=== PATIENT | female | born 1950 | race Caucasian/White ===

== ENCOUNTER 2025-01-21 15:21 | Outpatient (BNV) | payer MEDICARE, OTHER, SELFPAY | END 2025-02-10 09:00 | PROVIDERS: Admitting Provider Psychiatry & Neurology Psychiatry; PCP Radiology Diagnostic Radiology; Visit Provider Internal Medicine | DX: I35.8 Other nonrheumatic aortic valve disorders (principal); Z86.79 Personal history of other diseases of the circulatory system | CPT/HCPCS: 93306 ==

== ENCOUNTER 2025-01-21 15:21 | Outpatient (BNV) | payer MEDICARE, OTHER, SELFPAY | END 2025-01-22 07:00 | PROVIDERS: Admitting Provider Psychiatry & Neurology Psychiatry; PCP Radiology Diagnostic Radiology; Visit Provider Radiology Diagnostic Radiology | DX: E04.1 Nontoxic single thyroid nodule (principal) | CPT/HCPCS: 76536 ==

== ENCOUNTER 2025-01-21 15:21 | Outpatient (BNV) | payer MEDICARE, OTHER, SELFPAY | END 2025-02-12 17:38 | PROVIDERS: Admitting Provider Psychiatry & Neurology Psychiatry; PCP Radiology Diagnostic Radiology; Visit Provider Radiology Diagnostic Radiology | DX: K76.89 Other specified diseases of liver (principal) | CPT/HCPCS: 74177 ==

== ENCOUNTER 2025-01-21 15:21 | Inpatient (IN) | payer MEDICARE, OTHER, SELFPAY ==
--- NOTE | ~2025-01-21 | US_ITS ---
EXAMINATION: US THYROID CLINICAL INFORMATION: Left thyroid nodule. COMPARISON: None available. TECHNIQUE: Linear transducer grayscale and color Doppler examination with attention to the region of the thyroid. FINDINGS: SIZE: Measurements of the thyroid lobes and nodules are given in sagittal, anteroposterior and transverse dimensions respectively. Right Thyroid Lobe: 3.3 x 1.1 x 1.2 cm, volume 2.3 mL. Parenchyma: The gland echotexture is normal. Thyroid vascularity is normal. Left Thyroid Lobe: 2.3 x 1.1 x 0.9 cm, volume 1.2 mL. Parenchyma: The gland echotexture is normal. Thyroid vascularity is normal. Isthmus: 0.2 cm in maximum AP dimension. Estimated total number of nodules greater than or equal to 1 cm: 0. [employer] nodules are described as follows: US/US thyroid IMPRESSION: ACR TI RADS 0. Normal thyroid. ACR TI-RADS RECOMMENDATION REFERENCE: Ultrasound-guided fine-needle aspiration, followup ultrasound, no further follow up. * TR1 (0 point) and TR2 (2 points): No FNA or follow up. * TR3 (3 points): FNA if more than or equal to 2.5 cm in maximum dimension, followup ultrasound in 1, 3 and 5 years if 1.5 to 2.4 cm in maximum dimension. * TR4 (4-6 points): FNA if more than or equal to 1.5 cm in maximum dimension, followup ultrasound in 1, 2, 3 and 5 years if 1 to 1.4 cm in maximum dimension. * TR5 (more than or equal to 7 points): FNA if more than or equal to 1 cm in maximum dimension, followup ultrasound every year for 5 years if 0.5 to 0.9 cm in maximum dimension. * TR3, TR4 or TR5 nodules that are below the size threshold for followup receive no follow up. Electronically signed by: Juan Rosenberg MD 01/22/2025 10:02 AM EDT
--- NOTE | ~2025-01-21 | CT_ITS ---
CLINICAL HISTORY: Fall head strike CT cervical spine without contrast Comparison: None Findings: The visualized portions of the bilateral lung apices appear clear. Postsurgical changes compatible with ACDF present at the C4 through C7 vertebral levels. The surgical hardware appears intact. There is minimal grade 1 anterolisthesis of C7 on T1. Mild degenerative endplate changes are present at the cervical spine. Multilevel bilateral degenerative facet arthropathy present at the cervical spine. No acute fractures or dislocations are identified of the cervical spine. Minimal compression deformity identified of the superior T3 vertebral body endplate. This may be chronic in etiology based on its appearance. Impression: 1. No acute fracture or dislocation injury identified at the cervical spine. 2. Minimal compression deformity present at the superior T3 vertebral body endplate. This may be chronic in etiology based on its appearance. Clinical correlation is advised. This document has been electronically signed by: Jonathan Sandhu MD on 01/29/2025 03:05:54
--- NOTE | ~2025-01-21 | CT_ITS ---
CLINICAL HISTORY: Fall head strike CT head without contrast Comparison: None Findings: No intracranial mass, midline shift, hydrocephalus, or acute hemorrhage. Visualized paranasal sinuses and mastoid air cells appear clear. No acute skull fracture. Impression: 1. No acute intracranial abnormality. No acute intracranial hemorrhage. This document has been electronically signed by: Jonathan Sandhu MD on 01/29/2025 03:02:18
--- NOTE | ~2025-01-21 | CT_ITS ---
CLINICAL HISTORY: past liver lesion last yr ? ca abd pain CT abdomen and pelvis with IV contrast. COMPARISON: None FINDINGS: Partially visualized lung bases are unremarkable. Indeterminate ill-defined lesion within segment 7 of the liver measuring approximately 3.1 x 2.0 x 1.8 cm (best seen on coronal series 7, image 45 and sagittal series 8, image 65). Question mild peripheral enhancement. Indeterminate hypoattenuating lesion with question peripheral enhancement present within segment 1 of the liver measuring 1.1 cm (series coronal/7, image 39 and series 4, image 114). Additional well-defined hypoattenuating lesion present within segment 7 measuring 0.8 cm, too small to further characterize. Hypoattenuating lesion present along the dome of segment 8 measuring 1.4 cm, indeterminate. Additional well-defined hypoattenuating lesion present within segment 4A measuring 1.1 cm, likely representing a hepatic cyst. Normal gallbladder. Normal spleen. Several small calcifications present within the pancreas likely representing sequela of prior pancreatitis. Pancreatic duct is not dilated. No peripancreatic inflammatory changes. Symmetric renal enhancement. Cortical irregularity along the lateral aspect of the left kidney likely representing sequela prior trauma or infection. Left renal cystic lesion measuring 2.0 cm. No hydronephrosis. Cecum is in the left upper quadrant. Appendix is not definitively identified. Mild colonic stool burden. No bowel obstruction. No mesenteric or retroperitoneal lymphadenopathy. Moderate aortoiliac atherosclerotic vascular calcifications. Urinary bladder is unremarkable given degree of distention. No adnexal mass. Mild spondylosis. No fracture identified. Sacral stimulator device lead enters the sacrum on the left. IMPRESSION: 1. Indeterminate hepatic lesions within segments 1 and 7 of the liver measuring up to 3.1 cm. Recommend comparison with prior imaging if available. If none available, recommend hepatic protocol CT or MR for further characterization. Additional smaller hepatic lesions can be evaluated at that time. This document has been electronically signed by: Harry Prado MD on 02/12/2025 20:28:32
[2025-01-21 15:40] VITALS: BP 145/65; PULSE 84; RESP 18; TEMP 36.4; O2SAT 90; BMI 19.4
--- OUTSIDE RECORDS SUMMARY | 2025-01-21 18:18 | XMS_ITS | Encounter Summary ---
Author Organization [facility] Address [address] [place] [address] Care Team Providers Care Distribution Accounting Clerk Name Role Phone Johnny Izquierdo MD Primary Care Provider [phone] Johnny Frazier MD Primary Care Provider [phone] Encounter Details Date Type Department Care Team ( Contact Info) Description 11/04/2013 [facility] [address] [facility] [address] [place] [phone] Cecilia Pham NP Social History Tobacco Use Types Packs/Day Years Used Date Smoking Tobacco: Every Day Cigarettes 0.7 30 Smokeless Tobacco: Current Alcohol Use Standard Drinks/Week Comments Yes 0 (1 standard drink = 0.6 oz pur e alcohol) occasional drink Comments No Sex and Gender Information Value Date Recorded Sex Assigned at Not on file Legal Sex Female 6:50 PM EDT Gender Identity Not on file Sexual Orientation Not on file documented as of this encounter Plan of Treatment Upcoming Encounters Date Type Department Care Team (Latest Contact Info) Description 02/07/2025 9:25 AM EDT Office Visit [facility] [address] [place] [phone] Siomara Li MD [address] [place] [address] Return in about 3 months (around 03/12/2025). 05/12/2025 12:45 PM EDT CPE - Comprehensive Physical Exam [facility] [address] [place] [address] Tiffanie Rebolledo ADJUSTMENT EXAMINER [address] [facility] [place] [address] Last CPE: Not Found 06/11/2025 11:05 AM EDT Office Visit [facility] [address] [place] [address] Siomara Li MD [address] [place] [address] Keep this appt and Dr Britt can discuss at the January visit keep or move out documented as of this encounter Visit Diagnoses Diagnosis Urinary urgency Urgency of urination Urinary frequency documented in this encounter Additional Health Concerns Infection Onset Date Last Indicated Resolved Time COVID-19 Rule-Out 09/12/2020 09/12/2020 12/07/2020 8:13 PM EST documented as of this encounter Care Teams Distribution Accounting Clerk Relationship Specialty Start Date End Date Johnny Izquierdo MD [address] [place] [address] PCP - General 01/14/06 04/21/22 Johnny Frazier MD [address] [place] [address] PCP - General Family Medicine 04/22/22 documented as of this encounter
--- OUTSIDE RECORDS SUMMARY | 2025-01-21 18:18 | XMS_ITS | Encounter Summary ---
Author Organization [facility] Address [address] [place] [address] Care Team Providers Care Slot Shift Supervisor Name Role Phone Johnny Izquierdo MD Primary Care Provider [phone] Johnny Frazier MD Primary Care Provider [phone] Encounter Details Date Type Department Care Team (Late st Contact Info) Description 11/04/2013 Orders Only [facility] [address] [place] [phone] Johnny Izquierdo MD [address] [place], [place] [phone] Social History Tobacco Use Types Packs/Day Years [...] on file documented as of this encounter Progress Notes * Katy Antoine - 11/12/2013 12:00 PM Abbi Note: The patients lab results are at an abnormal level and Microalbumin and Urine Culture: Canceled by In Results on MonNov 05, 2013 3:32 PM Reason: Error - Test Not Performed. Patient unable to void. by the protocol guidelines. Please review. No Letter was generated. Patient has no upcoming appointment until February documented in this encounter Plan of Treatment Upcoming Encounters Date Type Department Care Team (Latest Contact Info) Description 02/07/2025 9:25 AM EDT Office Visit [facility] [address] [place] [address] Siomara Li MD [address] [place] [address] Return in about 3 months (around 03/12/2025). 05/12/2025 12:45 PM EDT CPE - Comprehensive Physical Exam [facility] [address] [place] [phone] Tiffanie Rebolledo, GRAB JACK WORKER [address] [place] [address] Last CPE: Not Found 06/11/2025 11:05 AM EDT Office Visit [facility] [address] [place] [phone] Siomara Li MD [address] [place] [address] Keep this appt and Dr Britt can discuss at the January visit keep or move out documented as of this encounter Procedures * Due to [place] state law, this organization might not be sharing negative HIV tests. Procedure Name Priority Date/Time Associated Diagnosis Comments ASPARTATE AMINOTRANSFERASE (AST), SERUM Routine 11/04/2013 9:41 AM EST Diabetes mellitus HEMOGLOBIN A1C Routine 11/04/2013 9:41 AM EST Diabetes mellitus LIPID PANEL WITH REFLEX TO DIRECT LDL Routine 11/04/2013 9:41 AM EST Diabetes mellitus BASIC METABOLIC PANEL WITH (GFR) Routine 11/04/2013 9:41 AM EST Diabetes mellitus documented in this encounter Results * Due to [place] state law, this organization might not be sharing negative HIV tests. * BASIC METABOLIC PANEL WITH (GFR) (11/04/2013 9:41 AM EST) Glucose 65 65 - 99 mg/dL [facility] Comment: {GLUCOSE {[id number]) ? Fasting reference interval Urea Nitrogen Blood (BUN) 9 7 - 25 mg/dL [facility] Comment:{UREA NITROGEN (BUN) {[id number]) Creatinine 0.75 0.50 - 0.99 mg/dL [facility] Comment: {CREATININE {[id number]) For patients >49 years of age, the reference limit for Creatinine is approximately 13% higher for people identified as -Cymraes. GFR 85 > OR = 60 mL/min/1 .73m2 [facility] Comment:{eGFR NON-AFR. AMERI CAN {[id number]) GFR () 99 > OR = 60 mL/min/1 .73m2 [facility] Comment:{eGFR AMERIC AN {[id number]) BUN/Creatinine Ratio NOT APPLICABLE 6 - 22 (calc) [facility] Comment:{BUN/CREATININE RATI O {[id number]) Sodium 140 135 - 146 mmol/L [facility] Comment:{SODIUM {[id number]) Potassium 4.5 3.5 - 5.3 mmol/L [facility] Comment:{POTASSIUM {[id number]) Chloride 105 98 - 110 mmol/L [facility] Comment:{CHLORIDE {[id number]) Carbon dioxide 28 19 - 30 mmol/L [facility] Comment:{CARBON DIOXIDE {[id number]) Calcium 8.8 8.6 - 10.4 mg/dL [facility] Comment:{CALCIUM {[id number]) 11/04/2013 9:41 AM EST 11/04/2013 2:10 PM EST Narrative [facility] - 11/04/2013 5:28 PM EST Please note that this estimated GFR does not include an adjustment for the patient's height or weight, and can therefore, be viewed as reliable only for patients with heights between 60 and 72 . More precise quantification using a 24-hour urine sample or height-based algorithm is recommended for patients outside of this range of height and for those individuals with more precise needs for GFR calculation. Resulting Agency Comment [id number] Johnny Izquierdo MD LABORATORY Final Result Performing Organization Address [facility]/ZIP Co de Phone Number [facility] [address] [place] [address] * ASPARTATE AMINOTRANSFERASE (AST), SERUM (11/04/2013 9:41 AM EST) AST (SGOT) 26 10 - 35 U/L [facility] Comment:{AST {[id number]) 11/04/2013 9:41 AM EST 11/04/2013 2:10 PM EST Narrative Resulting Agency Comment [id number] Johnny Izquierdo MD LAB SAME DAY RESULT Final Res ult Performing Organization Address [facility] Co de Phone Number [facility] [address] [place] [address] * (ABNORMAL) LIPID PANEL WITH REFLEX TO DIRECT LDL (11/04/2013 9:41 AM EST) Cholesterol 130 125 - 200 mg/dL [facility] Comment:{CHOLESTEROL, TOTAL {[id number]) HDL Cholesterol 23(L) > OR = 46 mg/dL [facility] Comment:{HDL CHOLESTEROL {[id number]) Triglyceride 145 <150 mg/dL [facility] Comment:{TRIGLYCERIDES {[id number]) LDL Cholesterol 78 <130 mg/dL (calc) [facility] Comment: {LDL-CHOLESTEROL {[id number]) Desirable range <100 mg/dL for patients with CHD or diabetes and <70 mg/dL for diabetic patients with known heart disease. CHOL/HDL Ratio 5.7(H) < OR = 5.0 (calc) [facility] Comment:{CHOL/HDLC RATIO {[id number]) Cholesterol Non-HDL 107 mg/dL (calc) [facility] Comment: {NON HDL CHOLESTEROL {[id number]) Target for non-HDL cholesterol is 30 mg/dL higher than LDL cholesterol target. 11/04/2013 9:41 AM EST 11/04/2013 2:10 PM EST Narrative Resulting Agency Comment [id number] Johnny Izquierdo MD LABORATORY Final Result Performing Organization Address [facility] Co de Phone Number [facility] [address] [place] [address] * (ABNORMAL) HEMOGLOBIN A1C (11/04/2013 9:41 AM EST) Hemoglobin A1C 5.8(H) <5.7 % of total Hgb [facility] Comment: {HEMOGLOBIN A1c {[id number]) According to ADA guidelines, hemoglobin A1c <7.0% represents optimal control in non- diabetic patients. Different metrics may apply to specific patient populations. Standards of Medical Care in Diabetes-2013. Diabetes Care. 2013;36:s11-s66 For the purpose of screening for the presence of diabetes <5.7% ? Consistent with the absence of diabetes 5.7-6.4% ?Consistent with increased risk for diabetes ?(prediabetes) >or=6.5% ?Consistent with diabetes This assay result is consistent with an increased risk of diabetes. Currently, no consensus exists for use of hemoglobin A1c for diagnosis of diabetes for children. Estimated Average Glucose 129 mg/dL (calc) [facility] Comment:{MEAN PLASMA GLUCOSE {[id number]) 11/04/2013 9:41 AM EST 11/04/2013 2:10 PM EST Narrative Resulting Agency Comment [id number] Johnny Izqiuerdo MD LABORATORY Final Result Performing Organization Address [facility] Co de Phone Number [facility] [address] [place] [address] documented in this encounter Visit Diagnoses Diagnosis Diabetes mellitus (HCC) Type II or unspecified type diabetes mellitus without mention of complication, not stated as uncontrolled Urinary tract infection Urinary tract infection, site not specified documented in this encounter Additional Health Concerns Infection Onset Date Last Indicated Resolved Time COVID-19 Rule-Out 09/12/2020 09/12/2020 12/07/2020 8:13 PM EST documented as of this encounter Care Teams Slot Shift Supervisor Relationship Specialty Start Date End Date Johnny Izquierdo MD [address] [place] [address] PCP - General 01/14/06 04/21/22 Johnny Frazier MD [address] [place] [address] PCP - General Family Medicine 04/22/22 documented as of this encounter
--- OUTSIDE RECORDS SUMMARY | 2025-01-21 18:18 | XMS_ITS | Encounter Summary ---
Author Organization [facility] Address [address] [place] [address] Care Team Providers Care Cyber Analyst Name Role Phone Johnny Izquierdo MD Primary Care Provider [phone] Johnny Frazier MD Primary Care Provider [phone] Encounter Details Date Type Department Care Team (Late st Contact Info) Description 07/10/2014 Orders Only [facility] [address] [place] [phone] Johnny Izquierdo MD [address] [place], [place] [phone] Social History Tobacco Use Types Packs/Day Years [...] encounter Progress Notes * Katy Antoine - 07/14/2014 9:30 AM EDTQuick Note: Please review. No Letter was generated. Patient has an upcoming appointment today documented in this encounter Plan of Treatment Upcoming Encounters Date Type Department Care Team (Latest Contact Info) Description 02/07/2025 9:25 AM EDT Office Visit [facility] [address] [place] [address] Siomara Li MD [address] [place] [address] Return in about 3 months (around 03/12/2025). 05/12/2025 12:45 PM EDT CPE - Comprehensive Physical Exam [facility] [address] [place] [address] Tiffanie Rebolledo, SPRAY UNIT FEEDER [address] [place] [address] Last CPE: Not Found 06/11/2025 11:05 AM EDT Office Visit [facility] [address] [place] [address] Siomara Li MD [address] [place] [address] Keep this appt and Dr Britt can discuss at the January visit keep or move out documented as of this encounter Goals Goal Patient Goal Type Associated Problems Recent Progress Patient-Stated? Author Quit smoking / using tobacco Lifestyle No Ricarda Weeks HEMOGLOBIN A1C % < 7 Result Component 6.3(12/03/2024 10:29 AM EST) No Ricarda Weeks documented as of this encounter Procedures * Due to [place] [employer] law, this organization might not be sharing negative HIV tests. Procedure Name Priority Date/Time Associated Diagnosis Comments EKG-TO BE READ & BILLED BY ADULT OR PEDIATRIC CARDIOLOGY Routine 07/10/2014 11:54 AM EDT Cellulitis documented in this encounter Results * Due to [place] [employer] law, this organization might not be sharing negative HIV tests. * EKG-TO BE READ AND BILLED BY CARDIOLOGY (07/10/2014 11:54 AM EDT) VENTRICULAR RATE 59 BPM MUS E EKG SYSTEM ATRIAL RATE 59 BPM MUSE EKG SYSTEM P-R INTERVAL 200 ms MUSE EK G SYSTEM QRS DURATION 78 ms MUSE EK G SYSTEM QT 434 ms MUSE EKG SYSTEM QTC 429 ms MUSE EKG SYSTEM P AXIS 25 degrees MUSE EKG SYSTEM R AXIS 31 degrees MUSE EKG SYSTEM T AXIS 30 degrees MUSE EKG SYSTEM EKG INTERPRETATION Sinus bradycardia Otherwise normal ECG When compared with ECG of 13-JAN-2011 13:22, No significant change was found MUSE EKG SYSTEM 07/10/2014 11:5 4 AM EDT us Johnny Izquierdo MD CARDIOVASCULAR-WITH INBSKT RT G Final Result MUSE EKG SYSTEM documented in this encounter Visit Diagnoses Diagnosis Cellulitis Cellulitis and abscess of unspecified site documented in this encounter Additional Health Concerns Infection Onset Date Last Indicated Resolved Time COVID-19 Rule-Out 09/12/2020 09/12/2020 12/07/2020 8:13 PM EST documented as of this encounter Care Teams Cyber Analyst Relationship Specialty Start Date End Date Johnny Izquierdo MD [address] [place] [address] PCP - General 01/14/06 04/21/22 Johnny Frazier MD [address] [place] [address] PCP - General Family Medicine 04/22/22 documented as of this encounter
--- OUTSIDE RECORDS SUMMARY | 2025-01-21 18:18 | XMS_ITS | Encounter Summary ---
Author Organization [facility] Address [address] [place] [address] Care Team Providers Care International Organizer Name Role Phone Johnny Izquierdo MD Primary Care Provider [phone] Johnny Frazier MD Primary Care Provider [phone] Encounter Details Date Type Department Care Team (Late st Contact Info) Description 11/06/2013 Orders Only [facility] [address] [place] [phone] Johnny Izquierdo MD [address] [place], [place] [address] Social History Tobacco Use Types Packs/Day Years [...] encounter Progress Notes * Katy Antoine - 11/07/2013 10:10 AM Abbi Note: The patients lab results are at a normal/stable level by the protocol guidelines. The result letterwas completed and sent to patient. Cecilia Reynaga NP - 11/07/2013 8:49 AM ESTQuick Note: Noted. LP documented in this encounter Plan of Treatment Upcoming Encounters Date Type Department Care Team (Latest Contact Info) Description 02/07/2025 9:25 AM EDT Office Visit [facility] [address] [place] [phone] Siomara Li MD [address] [place] [address] Return in about 3 months (around 03/12/2025). 05/12/2025 12:45 PM EDT CPE - Comprehensive Physical Exam [facility] [address] [place] [phone] Tiffanie Rebolledo NP [address] [place] [address] Last CPE: Not Found 06/11/2025 11:05 AM EDT Office Visit [facility] [address] [place] [phone] Siomara Li MD [address] [place] [address] Keep this appt and Dr Britt can discuss at the Kelsi visit keep or move out documented as of this encounter Procedures * Due to [place] [employer] law, this organization might not be sharing negative HIV tests. Procedure Name Priority Date/Time Associated Diagnosis Comments URINALYSIS, MICROSCOPIC Routine 11/06/2013 12:11 PM EST Urinary frequency Urinary urgency Urinary tract infection documented in this encounter Results * Due to [place] [employer] law, this organization might not be sharing negative HIV tests. * URINALYSIS, MICROSCOPIC (11/06/2013 12:11 PM EST) WBC (Urine) 0-5 < OR = 5 /HPF [facility] Comment:{WBC {[id number]) RBC (Urine Sed) 0-3 < OR = 3 /HPF [facility] Comment:{RBC {[id number]) Epithelial cells.squamous (Urine sed) 0-5 < OR = 5 /HPF [facility] Comment:{SQUAMOUS EPITHELIAL CELLS {[id number]) Bacteria (Urine) NONE SEEN NONE SEEN /HPF [facility] Comment:{BACTERIA {[id number]) Hyaline casts (Urine sed) NONE SEEN NONE SEEN /LPF [facility] Comment:{HYALINE CAST {[id number]) 11/06/2013 12:1 1 PM EST 11/06/2013 5:35 PM EST Narrative Resulting Agency Comment [id number] Johnny Izquierdo MD LAB SAME DAY RESULT Final Res ult [facility] [address] [place] [address] documented in this encounter Visit Diagnoses Diagnosis Urinary frequency Urinary urgency Urgency of urination Urinary tract infection Urinary tract infection, site not specified documented in this encounter Additional Health Concerns Infection Onset Date Last Indicated Resolved Time COVID-19 Rule-Out 09/12/2020 09/12/2020 12/07/2020 8:13 PM EST documented as of this encounter Care Teams International Organizer Relationship Specialty Start Date End Date Johnny Izquierdo MD [address] [place] [address] PCP - General 01/14/06 04/21/22 Johnny Frazier MD [address] [place] [address] PCP - General Family Medicine 04/22/22 documented as of this encounter
--- OUTSIDE RECORDS SUMMARY | 2025-01-21 18:18 | XMS_ITS | Encounter Summary ---
Author Organization [facility] Address [address] [place] [address] Care Team Providers Care Layup Worker Name Role Phone Johnny Izquierdo MD Primary Care Provider [phone] Johnny Frazier MD Primary Care Provider [phone] Encounter Details Date Type Department Care Team (Late st Contact Info) Description 09/19/2016 Orders Only [facility] [address] [place] [address] Linda Dickson, SOPHIE Social History Tobacco Use Types Packs/Day Years Used Date Smoking Tobacco: Every Day Cigarettes 1 56.5 Started: 07/19/1968 Smokeless Tobacco: Current Comments:1/2 ppd Alcohol Use Standard Drinks/Week Comments Yes 0 (1 standard drink = 0.6 oz pur e alcohol) occasional drink Comments No Sex and Gender Information Value Date Recorded Sex Assigned at Not on file Legal Sex Female 6:50 PM EDT Gender Identity Not on file Sexual Orientation Not on file documented as of this encounter Progress Notes * Katy Antoine - 09/21/2016 8:49 AM ESTQuick Note: Letter sent * Linda Dickson - 09/20/2016 5:15 PM ESTQuick Note: Please send normal letter. Ok for surgery documented in this encounter Plan of Treatment Upcoming Encounters Date Type Department Care Team (Latest Contact Info) Description 02/07/2025 9:25 AM EDT Office Visit [facility] [address] [place] [address] Siomara Li MD [address] [place] [address] Return in about 3 months (around 03/12/2025). 05/12/2025 12:45 PM EDT CPE - Comprehensive Physical Exam [facility] [address] [place] [address] Tiffanie Rebolledo, MAXILLOFACIAL PROSTHODONTIST [address] [place] [address] Last CPE: Not Found 06/11/2025 11:05 AM EDT Office Visit [facility] [address] [place] [address] Siomara Li MD [address] [place] [address] Keep this appt and Dr Britt can discuss at the Kelsi visit keep or move out documented as of this encounter Goals Goal Patient Goal Type Associated Problems Recent Progress Patient-Stated? Author Blood Pressure < 140/80 Blood Pressure 143/65(2024 2:06 PM EST) No Arabella Solares PA Quit smoking / using tobacco Lifestyle No Ricarda Weeks HEMOGLOBIN A1C % < 7 Result Component 6.3( 10:29 AM EST) No Ricarda Weeks documented as of this encounter Procedures * Due to [place] state law, this organization might not be sharing negative HIV tests. Procedure Name Priority Date/Time Associated Diagnosis Comments CBC INCLUDES DIFFERENTIAL AND PLATELET COUNT Routine 09/19/2016 8:45 AM EST Preoperative examination THYROID STIMULATING HORMONE (TSH) WITH FREE T4 REFLEX, SERUM Routine 09/19/2016 8:45 AM EST Hypothyroidism (acquired) BASIC METABOLIC PANEL WITH (GFR) Routine 09/19/2016 8:45 AM EST Preoperative examination documented in this encounter Results * Due to [place] state law, this organization might not be sharing negative HIV tests. * THYROID STIMULATING HORMONE (TSH) WITH FREE T4 REFLEX, SERUM (09/19/2016 8:45 AM EST) TSH 4.26 0.40 - 4.50 mIU/L [facility] Comment:{TSH W/REFLEX TO FT4 {[id number]) 09/19/2016 8:45 AM EST 09/19/2016 7:03 PM EST Narrative Resulting Agency Comment [id number] Linda Dickson NP LABORATORY Final Result Performing Organization Address City/State/[facility] Co de Phone Number [facility] [address] [place] [address] * BASIC METABOLIC PANEL WITH (GFR) (09/19/2016 8:45 AM EST) Glucose 90 65 - 99 mg/dL [facility] Comment: {GLUCOSE {[id number]) ? Fasting reference interval Urea Nitrogen Blood (BUN) 11 7 - 25 mg/dL [facility] Comment:{UREA NITROGEN (BUN) {[id number]) Creatinine 0.80 0.50 - 0.99 mg/dL [facility] Comment: {CREATININE {[id number]) For patients >49 years of age, the reference limit for Creatinine is approximately 13% higher for people identified as -[place]. GFR 77 > OR = 60 mL/min/1 .73m2 [facility] Comment:{eGFR NON-AFR. AMERI CAN {[id number]) GFR () 90 > OR = 60 mL/min/1 .73m2 [facility] Comment:{eGFR AMERIC AN {[id number]) BUN/Creatinine Ratio NOT APPLICABLE 6 - (calc) [facility] Comment:{BUN/CREATININE RATI O {[id number]) Sodium 139 135 - 146 mmol/L [facility] Comment:{SODIUM {[id number]) Potassium 4.7 3.5 - 5.3 mmol/L [facility] Comment:{POTASSIUM {[id number]) Chloride 104 98 - 110 mmol/L [facility] Comment:{CHLORIDE {[id number]) Carbon dioxide 27 20 - 31 mmol/L [facility] Comment:{CARBON DIOXIDE {[id number]) Calcium 9.6 8.6 - 10.4 mg/dL [facility] Comment:{CALCIUM {[id number]) 09/19/2016 8:45 AM EST 09/19/2016 7:03 PM EST Narrative [facility] - 09/19/2016 8:45 PM EST Please note that this estimated [...] needs for GFR calculation. Resulting Agency Comment [id number] Linda Dickson NP LABORATORY Final Result [facility] [address] [place] [address] * CBC INCLUDES DIFFERENTIAL AND PLATELET COUNT (09/19/2016 8:45 AM EST) WBC 5.8 3.8 - 10.8 Thousand/u L [facility] Comment:{WHITE BLOOD CELL CO UNT {[id number]) RBC 4.65 3.80 - 5.10 Million/uL [facility] Comment:{RED BLOOD CELL COUN T {[id number]) Hemoglobin 14.6 11.7 - 15.5 g/dL [facility] Comment:{HEMOGLOBIN {[id number]) Hematocrit 42.8 35.0 - 45.0 % [facility] Comment:{HEMATOCRIT {[id number]) MCV 92.2 80.0 - 100.0 fL [facility] Comment:{MCV {[id number]) MCH 31.4 27.0 - 33.0 pg [facility] Comment:{MCH {[id number]) MCHC 34.0 32.0 - 36.0 g/dL [facility] Comment:{MCHC {[id number]) RDW 13.8 11.0 - 15.0 % [facility] Comment:{RDW {[id number]) PLT 172 140 - 400 Thousand/u L [facility] Comment:{PLATELET COUNT {[id number]) MPV 11.2 7.5 - 11.5 fL [facility] Comment:{MPV {[id number]) Neutrophils # 3555 1500 - 7800 cells/uL [facility] Comment:{ABSOLUTE NEUTROPHIL S {[id number]) Lymphocytes # 1670 850 - 3900 cells/uL [facility] Comment:{ABSOLUTE LYMPHOCYTE S {[id number]) Monocytes # 348 200 - 950 cells/uL [facility] Comment:{ABSOLUTE MONOCYTES {[id number]) Eosinophils # 93 15 - 500 cells/uL [facility] Comment:{ABSOLUTE EOSINOPHIL S {[id number]) Basophils # 133 0 - 200 cells/uL [facility] Comment:{ABSOLUTE BASOPHILS {[id number]) Neutrophils % 61.3 % [facility] Comment:{NEUTROPHILS {[id number]) Lymphocytes % 28.8 % [facility] Comment:{LYMPHOCYTES {[id number]) Monocytes % 6.0 % [facility] Comment:{MONOCYTES {[id number]) Eosinophils % 1.6 % [facility] Comment:{EOSINOPHILS {[id number]) Basophils % 2.3 % [facility] Comment:{BASOPHILS {[id number]) 09/19/2016 8:45 AM EST 09/19/2016 7:03 PM EST Narrative Resulting Agency Comment [id number] us Linda Dickson MAXILLOFACIAL PROSTHODONTIST LAB SAME DAY RESULT Final Re sult [facility] [address] [place] [address] documented in this encounter Visit Diagnoses Diagnosis Preoperative examination Preoperative examination, unspecified Hypothyroidism (acquired) Unspecified hypothyroidism documented in this encounter Additional Health Concerns Infection Onset Date Last Indicated Resolved Time COVID-19 Rule-Out 09/12/2020 09/12/2020 12/07/2020 8:13 PM EST documented as of this encounter Care Teams Layup Worker Relationship Specialty Start Date End Date Johnny Izquierdo MD [address] [place] [address] PCP - General 01/14/06 04/21/22 Johnny Frazier MD [address] [place] [address] PCP - General Family Medicine 04/22/22 documented as of this encounter
--- OUTSIDE RECORDS SUMMARY | 2025-01-21 18:18 | XMS_ITS | Encounter Summary ---
Author Organization [facility] Address [address] [place] [address] Care Team Providers Care Quiller Runner Name Role Phone Johnny Izquierdo MD Primary Care Provider [phone] Johnny Frazier MD Primary Care Provider [phone] Encounter Details Date Type Department Care Team (Late st Contact Info) Description 11/04/2013 Orders Only [facility] [address] [place] [phone] Johnny Izquierdo MD [address] [place] [address] Social History Tobacco Use Types Packs/Day Years [...] Description 02/07/2025 9:25 AM EDT Office Visit [facility] [address] [place] [phone] Siomara Li MD [address] [place], [place] [phone] Return in about 3 months (around 03/12/2025). 05/12/2025 12:45 PM EDT CPE - Comprehensive Physical Exam [facility] [address] [place] [address] Tiffanie Rebolledo, ANIMAL CARE ASSISTANT [address] [place] [address] Last CPE: Not Found 06/11/2025 11:05 AM EDT Office Visit [facility] [address] [place] [address] Siomara Li MD [address] [place] [address] Keep this appt and Dr Britt can discuss at the January visit keep or move out documented as of this encounter Results * Due to [place] state law, this organization might not be sharing negative HIV tests. * URINALYSIS, MICROSCOPIC (11/06/2013 12:11 PM EST) WBC (Urine) 0-5 < OR = 5 /HPF [facility] Comment:{WBC {[id number]) RBC (Urine Sed) 0-3 < OR = 3 /HPF [facility] Comment:{RBC {[id number]) Epithelial cells.squamous (Urine sed) 0-5 < OR = 5 /HPF [facility] Comment:{SQUAMOUS EPITHELIAL CELLS {[id number]) Bacteria (Urine) NONE SEEN NONE SEEN /HPF [facility] Comment:{BACTERIA {[id number]) Hyaline casts (Urine sed) NONE SEEN NONE SEEN /LPF [facility] Comment:{HYALINE CAST {[id number]) 11/06/2013 12:1 1 PM EST 11/06/2013 5:35 PM EST Narrative Resulting Agency Comment [id number] us Johnny Izquierdo MD LAB SAME DAY RESULT Final Res ult [facility] [address] [place] [address] documented in this encounter Visit Diagnoses Diagnosis Urinary frequency- Primary Urinary urgency Urgency of urination Urinary tract infection Urinary tract infection, site not specified documented in this encounter Additional Health Concerns Infection Onset Date Last Indicated Resolved Time COVID-19 Rule-Out 09/12/2020 09/12/2020 12/07/2020 8:13 PM EST documented as of this encounter Care Teams Quiller Runner Relationship Specialty Start Date End Date Johnny Izquierdo MD [address] [place] [address] PCP - General 01/14/06 04/21/22 Johnny Frazier MD [address] [place] [address] PCP - General Family Medicine 04/22/22 documented as of this encounter
--- OUTSIDE RECORDS SUMMARY | 2025-01-21 18:18 | XMS_ITS | Encounter Summary ---
Author Organization [facility] Address [address] [place] [address] Care Team Providers Care General Duty Nurse Name Role Phone Johnny Izquierdo MD Primary Care Provider [phone] Johnny Frazier MD Primary Care Provider [phone] Encounter Details Date Type Department Care Team (Late st Contact Info) Description 08/04/2016 Orders Only [facility] [address] [place] [phone] Johnny Izquierdo MD [address] [place], [place] [phone] Social History Tobacco Use Types Packs/Day Years [...] as of this encounter Progress Notes * Tarah Falcon - 08/05/2016 3:44 PM EDTQuick Note: The patients lab results are at an abnormal level by the protocol guidelines. Please Review. No letter was generated. Patient has no upcoming appointment until September documented in this encounter Plan of Treatment Upcoming Encounters Date Type Department Care Team (Latest Contact Info) Description 02/07/2025 9:25 AM EDT Office Visit [facility] [address] [place] [address] Siomara Li MD [address] [place] [address] Return in about 3 months (around 03/12/2025). 05/12/2025 12:45 PM EDT CPE - Comprehensive Physical Exam [facility] [address] [place] [phone] Tiffanie Rebolledo, FABRICATION SPECIALIST [address] [place] [address] Last CPE: Not Found 06/11/2025 11:05 AM EDT Office Visit [facility] [address] [place] [address] Siomara Li MD [address] [place] [address] Keep this appt and Dr Britt can [...] of this encounter Procedures * Due to [place] state law, this organization might not be sharing negative HIV tests. Procedure Name Priority Date/Time Associated Diagnosis Comments HEMOGLOBIN A1C Routine 08/04/2016 9:55 AM EDT Type 2 diabetes mellitus without complication, with long-term current use of insulin LIPID PANEL WITH REFLEX TO DIRECT LDL Routine 08/04/2016 9:55 AM EDT Type 2 diabetes mellitus without complication, with long-term current use of insulin documented in this encounter Results * Due to [place] state law, this organization might not be sharing negative HIV tests. * (ABNORMAL) HEMOGLOBIN A1C (08/04/2016 9:55 AM EDT) Hemoglobin A1C 5.9(H) <5.7 % of total Hgb [facility] Comment: {HEMOGLOBIN A1c {[id number]) According to ADA guidelines, hemoglobin A1c <7.0% [...] of diabetes for children. Estimated Average Glucose 133 mg/dL (calc) [facility] Comment:{MEAN PLASMA GLUCOSE {[id number]) 08/04/2016 9:55 AM EDT 08/04/2016 7:33 PM EDT Narrative Resulting Agency Comment [id number] us Johnny Izquierdo MD LABORATORY Final Result [facility] [address] [place] [address] * (ABNORMAL) LIPID PANEL WITH REFLEX TO DIRECT LDL (08/04/2016 9:55 AM EDT) Cholesterol 188 125 - 200 mg/dL [facility] Comment:{CHOLESTEROL, TOTAL {[id number]) HDL Cholesterol 33(L) > OR = 46 mg/dL [facility] Comment:{HDL CHOLESTEROL {[id number]) Triglyceride 171(H) <150 mg/dL [facility] Comment:{TRIGLYCERIDES {[id number]) LDL Cholesterol 121 <130 mg/dL (calc) [facility] Comment: {LDL-CHOLESTEROL {[id number]) Desirable range <100 mg/dL for patients with CHD or diabetes and <70 mg/dL for diabetic patients with known heart disease. CHOL/HDL Ratio 5.7(H) < OR = 5.0 (calc) [facility] Comment:{CHOL/HDLC RATIO {[id number]) Cholesterol Non-HDL 155 mg/dL (calc) [facility] Comment: {NON HDL CHOLESTEROL {[id number]) Target for non-HDL cholesterol is 30 mg/dL higher than LDL cholesterol target. 08/04/2016 9:55 AM EDT 08/04/2016 7:33 PM EDT Narrative Resulting Agency Comment [id number] Johnny Izquierdo MD LABORATORY Final Result Performing Organization Address City/State/[facility] Co de Phone Number [facility] [address] [place] [address] documented in this encounter Visit Diagnoses Diagnosis Type 2 diabetes mellitus without complication, with long-term current use of insulin (HCC) documented in this encounter Additional Health Concerns Infection Onset Date Last Indicated Resolved Time COVID-19 Rule-Out 09/12/2020 09/12/2020 12/07/2020 8:13 PM EST documented as of this encounter Care Teams General Duty Nurse Relationship Specialty Start Date End Date Johnny Izquierdo MD [address] [place] [address] PCP - General 01/14/06 04/21/22 Johnny Frazier MD [address] [place] [address] PCP - General Family Medicine 04/22/22 documented as of this encounter
--- OUTSIDE RECORDS SUMMARY | 2025-01-21 18:18 | XMS_ITS | Encounter Summary ---
Author Organization [facility] Address [address] [place] [address] Care Team Providers Care Supercalender Operator Helper Name Role Phone Johnny Izquierdo MD Primary Care Provider [phone] Johnny Frazier MD Primary Care Provider [phone] Encounter Details Date Type Department Care Team (Late st Contact Info) Description 12/27/2016 Orders Only [facility] [address] [place], [place] [phone] Johnny Izquierdo MD [address] [place], [place] [phone] Social History Tobacco Use Types Packs/Day Years [...] Description 02/07/2025 9:25 AM EDT Office Visit [facility] [address] [place] [phone] Siomara Li MD [address] [place], [place] [phone] Return in about 3 months (around 03/12/2025). 05/12/2025 12:45 PM EDT CPE - Comprehensive Physical Exam [facility] [address] [place] [address] Tiffanie Rebolledo, HVAC R TECH [address] [place] [address] Last CPE: Not Found 06/11/2025 11:05 AM EDT Office Visit [facility] [address] [place] [address] Siomara Li MD [address] [place] [address] Keep this appt and Dr Britt can [...] this encounter Procedures * Due to [place] [email or web address] law, this organization might not be sharing negative HIV tests. Procedure Name Priority Date/Time Associated Diagnosis Comments HEMOGLOBIN A1C Routine 12/27/2016 7:50 AM EST Diabetes mellitus without complication ALBUMIN (MICROALBUMIN), RANDOM URINE, WITH CREATININE Routine 12/27/2016 7:50 AM EST Diabetes mellitus without complication LIPID PANEL WITH REFLEX TO DIRECT LDL Routine 12/27/2016 7:50 AM EST Diabetes mellitus without complication BASIC METABOLIC PANEL WITH (GFR) Routine 12/27/2016 7:50 AM EST Diabetes mellitus without complication documented in this encounter Results * Due to [place] state law, this organization might not be sharing negative HIV tests. * (ABNORMAL) LIPID PANEL WITH REFLEX TO DIRECT LDL (12/27/2016 7:50 AM EST) Cholesterol 267(H) 125 - 200 mg/dL [facility] HDL Cholesterol 25(L) > OR = 46 mg/dL [facility] Triglyceride 246(H) <150 mg/dL [facility] LDL Cholesterol 193(H) <130 mg/dL (calc) [facility] Comment: LDL-C levels > or = 190 mg/dL may indicate familial hypercholesterolemia (FH). Clinical assessment and measurement of blood lipid levels should be considered for all first degree relatives of patients with an FH diagnosis. ??J of Clinical Lipidology 5:S1-S8 2010. Desirable range <100 mg/dL for patients with CHD or diabetes and <70 mg/dL for diabetic patients with known heart disease. CHOL/HDL Ratio 10.7(H) < OR = 5.0 (calc) [facility] Cholesterol Non-HDL 242(H) mg/dL (calc) [facility] Comment: Target for non-HDL cholesterol is 30 mg/dL higher than LDL cholesterol target. 12/27/2016 7:50 AM EST 12/27/2016 2:44 PM EST Narrative Resulting Agency Comment [id number] Johnny Izquierdo MD LABORATORY Final Result Performing Organization Address City/State/[facility] Co de Phone Number [facility] [address] [place] [address] * BASIC METABOLIC PANEL WITH (GFR) (12/27/2016 7:50 AM EST) Glucose 78 65 - 99 mg/dL [facility] Comment:Fasting reference in terval Urea Nitrogen Blood (BUN) 13 7 - 25 mg/dL [facility] Creatinine 0.87 0.50 - 0.99 mg/dL [facility] Comment: For patients >49 years of age, the reference limit for Creatinine is approximately 13% higher for people identified as -[place]. GFR 70 > OR = 60 mL/min/1 .73m2 [facility] GFR () 81 > OR = 60 mL/min/1 .73m2 [facility] BUN/Creatinine Ratio NOT APPLICABLE 6 - 22 (calc) [facility] Sodium 140 135 - 146 mmol/L [facility] Potassium 5.0 3.5 - 5.3 mmol/L [facility] Chloride 103 98 - 110 mmol/L [facility] Carbon dioxide 24 20 - 31 mmol/L [facility] Calcium 9.5 8.6 - 10.4 mg/dL [facility] 12/27/2016 7:50 AM EST 12/27/2016 2:44 PM EST Narrative [facility] - 12/27/2016 4:27 PM EST Please note that this estimated [...] needs for GFR calculation. Resulting Agency Comment [id number] Johnny Izquierdo MD LABORATORY Final Result [facility] [address] [place] [address] * ALBUMIN (MICROALBUMIN), RANDOM URINE, WITH CREATININE (12/27/2016 7:50 AM EST) Creatinine (Urine) 85 20 - 320 mg/dL [facility] Albumin (Urine) <0.2 mg/dL [facility] Comment: Verified by repeat analysis. Reference Range Not established Albumin/Creatinine (Urine) NOTE <30 mcg/mg creat [facility] Comment: The microalbumin value is less than 0.2 mg/dL therefore we are unable to calculate excretion and/or creatinine ratio. The ADA defines abnormalities in albumin excretion as follows: Category ? Result (mcg/mg creatinine) Normal ?<30 Microalbuminuria ? 30-299 Clinical albuminuria ?? > OR = 300 The ADA recommends that at least two of three specimens collected within a 3-6 month period be abnormal before considering a patient to be within a diagnostic category. 12/27/2016 7:50 AM EST 12/27/2016 2:44 PM EST Narrative Resulting Agency Comment [id number] Johnny Izquierdo MD LABORATORY Final Result Performing Organization Address [facility] de Phone Number [facility] [address] [place] [address] * (ABNORMAL) HEMOGLOBIN A1C (12/27/2016 7:50 AM EST) Hemoglobin A1C 6.0(H) <5.7 % of total Hgb [facility] Comment: According to ADA guidelines, hemoglobin A1c <7.0% [...] of diabetes for children. Estimated Average Glucose 136 mg/dL (calc) [facility] 12/27/2016 7:50 AM EST 12/27/2016 2:44 PM EST Narrative Resulting Agency Comment [id number] Johnny Izquierdo MD LABORATORY Final Result Performing Organization Address [facility] de Phone Number [facility] [address] [place] [address] documented in this encounter Visit Diagnoses Diagnosis Diabetes mellitus without complication (HCC) Type II or unspecified type diabetes mellitus without mention of complication, not stated as uncontrolled Screening for osteoporosis Special screening for osteoporosis documented in this encounter Additional Health Concerns Infection Onset Date Last Indicated Resolved Time COVID-19 Rule-Out 09/12/2020 09/12/2020 12/07/2020 8:13 PM EST documented as of this encounter Care Teams Supercalender Operator Helper Relationship Specialty Start Date End Date Johnny Izquierdo MD [address] [facility] [place] [address] PCP - General 01/14/06 04/21/22 Johnny Frazier MD [address] [facility] [place] [address] PCP - General Family Medicine 04/22/22 documented as of this encounter
--- OUTSIDE RECORDS SUMMARY | 2025-01-21 18:18 | XMS_ITS | Encounter Summary ---
Author Organization [facility] Address [address] [place] [address] Care Team Providers Care Warehouse Coordinator Name Role Phone Johnny Izquierdo MD Primary Care Provider [phone] Johnny Frazier MD Primary Care Provider [phone] Encounter Details Date Type Department Care Team (Late st Contact Info) Description 11/04/2013 Orders Only [facility] [address] [place] [phone] Johnny Izquierdo MD [address] [place] [address] Social History Tobacco Use Types Packs/Day Years [...] Description 02/07/2025 9:25 AM EDT Office Visit [facility] [address] [place] [phone] Siomara Li MD [address], [place] [phone] Return in about 3 months (around 03/12/2025). 05/12/2025 12:45 PM EDT CPE - Comprehensive Physical Exam [facility] [address] [place] [address] Tiffanie Rebolledo, UNDERWEAR HEMMER [address] [place] [address] Last CPE: Not Found 06/11/2025 11:05 AM EDT Office Visit [facility] [address] [place] [phone] Siomara Li MD [address] [place] [address] Keep this appt and Dr Britt can discuss at the January visit keep or move out documented as of this encounter Visit Diagnoses Not on filedocumented in this encounter Additional Health Concerns Infection Onset Date Last Indicated Resolved Time COVID-19 Rule-Out 09/12/2020 09/12/2020 12/07/2020 8:13 PM EST documented as of this encounter Care Teams Warehouse Coordinator Relationship Specialty Start Date End Date Johnny Izquierdo MD [address] [place] [address] PCP - General 01/14/06 04/21/22 Johnny Frazier MD [address] [place] [address] PCP - General Family Medicine 04/22/22 documented as of this encounter
--- OUTSIDE RECORDS SUMMARY | 2025-01-21 18:18 | XMS_ITS | Encounter Summary ---
Author Organization [facility] Address [address] [place] [address] Care Team Providers Care Retail Chain Store Area Supervisor Name Role Phone Johnny Izquierdo MD Primary Care Provider [phone] Johnny Frazier MD Primary Care Provider [phone] Encounter Details Date Type Department Care Team (Late st Contact Info) Description 10/21/2016 Orders Only [facility] [address] [place] [phone] Johnny Izquierdo MD [address] [place], [place] [phone] Social History Tobacco Use Types Packs/Day Years [...] Description 02/07/2025 9:25 AM EDT Office Visit [facility] [address] [place] [phone] Siomara Li MD [address] [place] [address] Return in about 3 months (around 03/12/2025). 05/12/2025 12:45 PM EDT CPE - Comprehensive Physical Exam [facility] [address] [place] [address] Tiffanie Rebolledo, MAMMA LOGIST [address] [place] [address] Last CPE: Not Found 06/11/2025 11:05 AM EDT Office Visit [facility] [address] [place] [address] Siomara Li MD [address] [place] [address] Keep this appt and Dr Britt can [...] Ricarda Weeks documented as of this encounter Visit Diagnoses Diagnosis Lipids blood increased- Primary Other and unspecified hyperlipidemia Diabetes mellitus, stable (HCC) Type II or unspecified type diabetes mellitus without mention of complication, not stated as uncontrolled documented in this encounter Additional Health Concerns Infection Onset Date Last Indicated Resolved Time COVID-19 Rule-Out 09/12/2020 09/12/2020 12/07/2020 8:13 PM EST documented as of this encounter Care Teams Retail Chain Store Area Supervisor Relationship Specialty Start Date End Date Johnny Izquierdo MD [address] [place] [address] PCP - General 01/14/06 04/21/22 Johnny Frazier MD [address] [facility] [address] PCP - General Family Medicine 04/22/22 documented as of this encounter
--- OUTSIDE RECORDS SUMMARY | 2025-01-21 18:18 | XMS_ITS | Encounter Summary ---
Author Organization [facility] Address [address] [place] [address] Care Team Providers Care Car Repair Supervisor Name Role Phone Johnny Izquierdo MD Primary Care Provider [phone] Johnny Frazier MD Primary Care Provider [phone] Encounter Details Date Type Department Care Team (Late st Contact Info) Description 01/13/2009 Orders Only [facility] [address] [place] [address] Lianna Meléndez, [facility] [address] [place], [place] [phone] Social History Tobacco Use Types Packs/Day Years Used Date Smoking Tobacco: Every Day Cigarettes 1 20 Alcohol Use Standard Drinks/Week Comments Not Asked 0 (1 standard drink = 0.6 oz pur e alcohol) Comments No Sex and Gender Information Value Date Recorded Sex Assigned at Not on file Legal Sex Female 6:50 PM EDT Gender Identity Not on file Sexual Orientation Not on file documented as of this encounter Plan of Treatment Upcoming Encounters Date Type Department Care Team (Latest Contact Info) Description 02/07/2025 9:25 AM EDT Office Visit [facility] [address] [place] [phone] Siomara Li MD [address] [place] [address] Return in about 3 months (around 03/12/2025). 05/12/2025 12:45 PM EDT CPE - Comprehensive Physical Exam [facility] [address] [place] [phone] Tiffanie Rebolledo, FIELD GEOLOGIST [address] [place] [address] Last CPE: Not Found 06/11/2025 11:05 AM EDT Office Visit [facility] [address] [place] [address] Siomara Li MD [address] [place] [address] Keep this appt and Dr Britt can discuss at the January visit keep or move out documented as of this encounter Procedures * Due to [place] [employer] law, this organization might not be sharing negative HIV tests. Procedure Name Priority Date/Time Associated Diagnosis Comments IRON/TIBC Routine 01/13/2009 Iron Deficiency Anemia Fatigue documented in this encounter Results * Due to [facility] law, this organization might not be sharing negative HIV tests. * IRON/TIBC (01/13/2009) IRON 66 35 - 175 UG/DL TIBC (IRON BINDING CAPACITY) 395 250 - 450 MCG/DL IRON SATURATION % 17 15 - 50 % 01/13/2009 01/13/2009 8:2 2 PM EDT Narrative 01/14/2009 2:42 AM EDT Report Comments: ORIGINALLY EXPECTED: 02/02/08 IRON/TIBC Lianna Meléndez DNP LABORATORY Final Result documented in this encounter Visit Diagnoses Diagnosis Iron deficiency anemia Iron deficiency anemia, unspecified Fatigue Other malaise and fatigue documented in this encounter Additional Health Concerns Infection Onset Date Last Indicated Resolved Time COVID-19 Rule-Out 09/12/2020 09/12/2020 12/07/2020 8:13 PM EST documented as of this encounter Care Teams Car Repair Supervisor Relationship Specialty Start Date End Date Johnny Izquierdo MD [address] [place] [address] PCP - General 01/14/06 04/21/22 Johnny Frazier MD [address] [place] [address] PCP - General Family Medicine 04/22/22 documented as of this encounter
--- OUTSIDE RECORDS SUMMARY | 2025-01-21 18:18 | XMS_ITS | Encounter Summary ---
Author Organization [facility] Address [address] [place] [address] Care Team Providers Care Tube Tester Name Role Phone Johnny Izquierdo MD Primary Care Provider [phone] Johnny Frazier MD Primary Care Provider [phone] Encounter Details Date Type Department Care Team (Late st Contact Info) Description 03/11/2013 Orders Only [facility] [address] [place] [phone] Johnny Izquierdo MD [address] [place], [place] [phone] Social History Tobacco Use Types Packs/Day Years Used Date Smoking Tobacco: Every Day Cigarettes 1 30 Smokeless Tobacco: Never Alcohol Use Standard Drinks/Week Comments Yes 0 (1 standard drink = 0.6 oz pur e alcohol) occasional drink Comments No Sex and Gender Information Value Date Recorded Sex Assigned at Not on file Legal Sex Female 6:50 PM EDT Gender Identity Not on file Sexual Orientation Not on file documented as of this encounter Progress Notes * Katy Antoine - 03/12/2013 8:47 AM EDTQuick Note: The patients lab results are at an abnormal level by the protocol guidelines. Letter was printed and held for review at upcoming appointment on : 03/12/13 documented in this encounter Plan of Treatment Upcoming Encounters Date Type Department Care Team (Latest Contact Info) Description 02/07/2025 9:25 AM EDT Office Visit [facility] [address] [place] [address] Siomara Li MD [address] [place] [address] Return in about 3 months (around 03/12/2025). 05/12/2025 12:45 PM EDT CPE - Comprehensive Physical Exam [facility] [address] [place] [address] Tiffanie Rebolledo, RN HOUSE SUPERVISOR [address] [place] [address] Last CPE: Not Found 06/11/2025 11:05 AM EDT Office Visit [facility] [address] [place] [address] Siomara Li MD [address] [place] [address] Keep this appt and Dr Britt can discuss at the Kelsi visit keep or move out documented as of this encounter Procedures * Due to [place] state law, this organization might not be sharing negative HIV tests. Procedure Name Priority Date/Time Associated Diagnosis Comments ASPARTATE AMINOTRANSFERASE (AST), SERUM Routine 03/11/2013 7:37 AM EDT Diabetes mellitus TSH, 3RD GENERATION Routine 03/11/2013 7 :37 AM EDT Hypothyroidism HEMOGLOBIN A1C Routine 03/11/2013 7:37 AM EDT Diabetes mellitus ALBUMIN (MICROALBUMIN), RANDOM URINE, WITH CREATININE Routine 03/11/2013 7:37 AM EDT Diabetes mellitus LIPID PANEL WITH REFLEX TO DIRECT LDL Routine 03/11/2013 7:37 AM EDT Diabetes mellitus BASIC METABOLIC PANEL WITH (GFR) Routine 03/11/2013 7:37 AM EDT Diabetes mellitus documented in this encounter Results * Due to [place] state law, this organization might not be sharing negative HIV tests. * TSH, 3RD GENERATION (03/11/2013 7:37 AM EDT) TSH 1.99 0.40 - 4.50 mIU/L [facility] Comment:{TSH {[id number]) 03/11/2013 7:37 AM EDT 03/11/2013 1:06 PM EDT Narrative Resulting Agency Comment [id number] Johnny Izquierdo MD LABORATORY Final Result [facility] [address] [place] [address] * BASIC METABOLIC PANEL WITH (GFR) (03/11/2013 7:37 AM EDT) Glucose 90 65 - 99 mg/dL [facility] Comment: {GLUCOSE {[id number]) ? Fasting reference interval Urea Nitrogen Blood (BUN) 15 7 - 25 mg/dL [facility] Comment:{UREA NITROGEN (BUN) {[id number]) Creatinine 0.91 0.50 - 0.99 mg/dL [facility] Comment: {CREATININE {[id number]) For patients >49 years of age, the reference limit for Creatinine is approximately 13% higher for people identified as -Vincentian. GFR 68 > OR = 60 mL/min/1 .73m2 [facility] Comment:{eGFR NON-AFR. AMERI CAN {[id number]) GFR () 79 > OR = 60 mL/min/1 .73m2 [facility] Comment:{eGFR AMERIC AN {[id number]) BUN/Creatinine Ratio NOT APPLICABLE 6 - (calc) [facility] Comment:{BUN/CREATININE RATI O {[id number]) Sodium 142 135 - 146 mmol/L [facility] Comment:{SODIUM {[id number]) Potassium 4.1 3.5 - 5.3 mmol/L [facility] Comment:{POTASSIUM {[id number]) Chloride 105 98 - 110 mmol/L [facility] Comment:{CHLORIDE {[id number]) Carbon dioxide 28 19 - 30 mmol/L [facility] Comment:{CARBON DIOXIDE {[id number]) Calcium 9.3 8.6 - 10.4 mg/dL [facility] Comment:{CALCIUM {[id number]) 03/11/2013 7:37 AM EDT 03/11/2013 1:06 PM EDT Narrative [facility] - 03/11/2013 3:56 PM EDT Please note that this estimated GFR does [...] needs for GFR calculation. Resulting Agency Comment [id number] Johnny Izquierdo MD LABORATORY Final Result [facility] [address] [place] [address] * ALBUMIN (MICROALBUMIN), RANDOM URINE, WITH CREATININE (03/11/2013 7:37 AM EDT) Creatinine (Urine) 67 20 - 320 mg/dL [facility] Comment:{CREATININE, RANDOM URINE {[id number]) Albumin (Urine) 0.6 mg/dL [facility] Comment: {MICROALBUMIN {[id number]) Reference Range Not established Albumin/Creatinine (Urine) 9 <30 mcg/mg creat [facility] Comment: {MICROALBUMIN/CREATININE RATIO, RANDOM URINE {[id number]) The ADA defines abnormalities in albumin excretion as follows: Category ? Result (mcg/mg creatinine) Normal ?<30 Microalbuminuria ? 30-299 Clinical albuminuria ?? > OR = 300 The ADA recommends that at least two of three specimens collected within a 3-6 month period be abnormal before considering a patient to be within a diagnostic category. 03/11/2013 7:37 AM EDT 03/11/2013 1:06 PM EDT Narrative Resulting Agency Comment [id number] Johnny Izquierdo MD LABORATORY Final Result Performing Organization Address [facility]/ZIP Co de Phone Number [facility] [address] [place] [address] * ASPARTATE AMINOTRANSFERASE (AST), SERUM (03/11/2013 7:37 AM EDT) AST (SGOT) 16 10 - 35 U/L [facility] Comment:{AST {[id number]) 03/11/2013 7:37 AM EDT 03/11/2013 1:06 PM EDT Narrative Resulting Agency Comment [id number] Johnny Izquierdo MD LAB SAME DAY RESULT Final Res ult Performing Organization Address [facility]/[place] Co de Phone Number [facility] [address] [place] [address] * (ABNORMAL) LIPID PANEL WITH REFLEX TO DIRECT LDL (03/11/2013 7:37 AM EDT) Cholesterol 143 125 - 200 mg/dL [facility] Comment:{CHOLESTEROL, TOTAL {[id number]) HDL Cholesterol 27(L) > OR = 46 mg/dL [facility] Comment:{HDL CHOLESTEROL {[id number]) Triglyceride 146 <150 mg/dL [facility] Comment:{TRIGLYCERIDES {[id number]) LDL Cholesterol 87 <130 mg/dL (calc) [facility] Comment: {LDL-CHOLESTEROL {[id number]) Desirable range <100 mg/dL for patients with CHD or diabetes and <70 mg/dL for diabetic patients with known heart disease. CHOL/HDL Ratio 5.3(H) < OR = 5.0 (calc) [facility] Comment:{CHOL/HDLC RATIO {[id number]) Cholesterol Non-HDL 116 mg/dL (calc) [facility] Comment: {NON HDL CHOLESTEROL {[id number]) Target for non-HDL cholesterol is 30 mg/dL higher than LDL cholesterol target. 03/11/2013 7:37 AM EDT 03/11/2013 1:06 PM EDT Narrative Resulting Agency Comment [id number] Johnny Izquierdo MD LABORATORY Final Result Performing Organization Address [facility]/ZIP Co de Phone Number [facility] [address] [place] [address] * (ABNORMAL) HEMOGLOBIN A1C (03/11/2013 7:37 AM EDT) Hemoglobin A1C 5.7(H) <5.7 % of total Hgb [facility] Comment: {HEMOGLOBIN A1c {[id number]) ?Increased risk of diabetes ? <5.7 ? Decreased risk of diabetes ? 5.7-6.0 ?Increased risk of diabetes ? 6.1-6.4 ?Higher risk of diabetes ? > or = 6.5 Consistent with diabetes ? These Reference Intervals are supported by the ? current Standards of Medical Care in Diabetes ? published in October of the current year in ? Diabetes Care, the Journal of the Vincent[place] ? Diabetes Association. Estimated Average Glucose 126 mg/dL (calc) [facility] Comment:{MEAN PLASMA GLUCOSE {[id number]) 03/11/2013 7:37 AM EDT 03/11/2013 1:06 PM EDT Narrative Resulting Agency Comment [id number] Johnny Izquierdo MD LABORATORY Final Result Performing Organization Address City/[facility]/[place] Co de Phone Number [facility] [address] [place] [address] documented in this encounter Visit Diagnoses Diagnosis Diabetes mellitus (HCC) Type II or unspecified type diabetes mellitus without mention of complication, not stated as uncontrolled Hypothyroidism Unspecified hypothyroidism documented in this encounter Additional Health Concerns Infection Onset Date Last Indicated Resolved Time COVID-19 Rule-Out 09/12/2020 09/12/2020 12/07/2020 8:13 PM EST documented as of this encounter Care Teams Tube Tester Relationship Specialty Start Date End Date Johnny Izquierdo MD [address] [facility] [place] [address] PCP - General 01/14/06 04/21/22 Johnny Frazier MD [address] [place] [address] PCP - General Family Medicine 04/22/22 documented as of this encounter
--- OUTSIDE RECORDS SUMMARY | 2025-01-21 18:18 | XMS_ITS | Encounter Summary ---
Author Organization [facility] Address [address] [place] [address] Care Team Providers Care Carpet Repairer Name Role Phone Johnny Izquierdo MD Primary Care Provider [phone] Johnny Frazier MD Primary Care Provider [phone] Reason for Visit * Reason Onset Date Comments Refill Request 10/29/2013 Encounter Details Date Type Department Care Team (Late st Contact Info) Description 10/29/2013 Refill [facility] [address] [place] [phone] Johnny Izquierdo MD [address] [place] [address] Refill Request Social History Tobacco Use Types Packs/Day Years [...] Description 02/07/2025 9:25 AM EDT Office Visit [facility] [address] [place] [phone] Siomara Li MD [address] [place] [address] Return in about 3 months (around 03/12/2025). 05/12/2025 12:45 PM EDT CPE - Comprehensive Physical Exam [facility] [address] [place] [phone] Tiffanie Rebolledo, E COMMERCE MANAGER [address] [place] [address] Last CPE: Not Found 06/11/2025 11:05 AM EDT Office Visit [facility] [address] [place] [phone] Siomara Li MD [address] [place] [address] Keep this appt and Dr Britt can discuss at the January visit keep or move out documented as of this encounter Visit Diagnoses Not on filedocumented in this encounter Additional Health Concerns Infection Onset Date Last Indicated Resolved Time COVID-19 Rule-Out 09/12/2020 09/12/2020 12/07/2020 8:13 PM EST documented as of this encounter Care Teams Carpet Repairer Relationship Specialty Start Date End Date Johnny Izquierdo MD [address] [place] [address] PCP - General 01/14/06 04/21/22 Johnny Frazier MD [address] [place] [address] PCP - General Family Medicine 04/22/22 documented as of this encounter
--- OUTSIDE RECORDS SUMMARY | 2025-01-21 18:18 | XMS_ITS | Encounter Summary ---
Author Organization [facility] Address [address] [place] [address] Care Team Providers Care Purchasing Supervisor Name Role Phone Johnny Izquierdo MD Primary Care Provider [phone] Johnny Frazier MD Primary Care Provider [phone] Reason for Visit * Reason Comments E-prescribing Refill Request Encounter Details Date Type Department Care Team (Late st Contact Info) Description 12/06/2016 Refill [facility] [address] [place] [address] Johnny Izquierdo MD [address] [place], [place] [phone] E-prescribing Refill Request Social History Tobacco Use Types [...] on file documented as of this encounter Miscellaneous Notes * Telephone Encounter - Chasity Perera - 12/06/2016 8:50 AM EST Any special requests or concerns? none Faxed/E-prescribed medication renewal request(s) for Tatum Fine 66 y.o. female received from pharmacy. Verified and Confirmed pharmacy for patient. Last CPE with this specialty: 04/13/2010 Last OV with this specialty: 11/09/2016 Next OV: Future Appointments Date Time Provider Department Center 12/06/2016 11:45 AM [facility] 12/12/2016 11:20 AM Mary Prasad MD [facility] 12/14/2016 2:00 PM Douglas David [facility] 12/28/2016 2:00 PM Kashif Mccullough DPM [facility] 04/11/2017 2:00 PM Eliseo Kirkland MD [facility] Pertinent lab results: No labs suggested for any medication orders signed or pended in this encounter. Refresh if any orders changed. Allergies: Review of patient's allergies indicates no known allergies. BP Readings from Last 1 Encounters: 11/24/16 98/60 Patient Active Problem List Diagnosis Date Noted ??? Pap smear for cervical cancer screening 11/28/2016 Medical Hx: POSITIVE FOR:, abnormal pap smear, (pt states repeats only) Pap smears from 2003 to present have been negative. 11/24/2016 pap = Neg & hpv = not detected. Plan per provider progress note: If this pap is negative, can stop screening paps. ??? Diabetes (HCC) 09/19/2016 Type II, controlled on Lantus 12 units h.s. ??? Cigarette smoker 07/19/2016 ??? Lumbar radicular pain 05/26/2016 ??? Post-traumatic osteoarthritis of left knee [M17.32] 05/26/2016 ??? Memory loss 03/11/2016 ??? Abnormal involuntary movements 03/11/2016 ??? Bilateral back pain - PT 02/16/2016 ??? Bipolar affective disorder in remission (HCC) 03/26/2015 ??? Essential hypertension 03/26/2015 ??? Overactive bladder 07/16/2013 vesicare 10 bid ??? Chest pain 01/21/2011 01/21/11 hospitalized at [facility]. Had cardiac catheterization which was normal, both left and right heart evaluated. Lianna Meléndez, SOPHIE , ??? S/P colonoscopy 10/29/2010 10/29/10 done 10/27/10 showed tubular adenoma. Lianna Meléndez NP ??? MOOD DISORDER xx0.33xx (HCC) 08/19/2009 Lexapro 20 ??? Hypothyroidism (acquired) 08/19/2009 Levothyroid 125mcg ??? Tobacco use disorder 08/19/2009 01/21/11 nicoderm patch 21 mg ordered, will decrease to 14 mg with next month refill. Lianna Meléndez NP Colon 06/2016 recommend 5yr F/u ??? GERD (GASTROESOPHAGEAL REFLUX DISEASE) 10/19/2007 On ranitidine 150 ??? ALLERGIC RHINITIS 10/19/2007 nasonex , ??? Hyperlipidemia with target LDL less than 100 04/06/2007 On atorvastatin 40 ??? ANXIETY STATE, NEUROTIC 04/06/2007 Buspirone and clonzapam Current Outpatient Prescriptions on File Prior to Visit Medication Sig Dispense Refill ??? Amoxicillin-Pot Clavulanate 875-125 MG Tab 1 TABLET EVERY 12 HOURS 14 Tab 0 ??? Erythromycin 5 MG/GM Ointment small amount to both upper lids four times a day 1 Tube 2 ??? Mometasone Furoate (NASONEX) 50 MCG/ACT Suspension 2 sprays each nostril twice per day DX J30.93 Inhaler 3 ??? ClonazePAM 0.5 MG Tab 1 TABLET DAILY 90 Tab 1 ??? Spacer/Aero-Holding Chambers (AEROCHAMBER) Misc Use as direcetd with inhalers 1 Each 0 ??? Fluticasone Propionate HFA (FLOVENT HFA) 110 MCG/ACT Aerosol 2 puffs twice daily. 1 Inhaler 3 ??? ALBUTEROL SULFATE (PROAIR HFA) 108 (90 BASE) MCG/ACT Aero Soln Inhale 2 puffs every 4-6 hours as needed for wheezing or shortness of breath 1 Inhaler 0 ??? Loratadine 10 MG Tab 1 tablet by mouth daily as needed for allergy symptoms, available without a prescription 30 Tab 5 ??? RaNITidine HCl 150 MG Tab TAKE 1 TABLET TWICE A DAY 180 Tab 1 ??? Atorvastatin Calcium 40 MG Tab TAKE 1 TABLET DAILY 90 Tab 3 ??? Levothyroxine Sodium 125 MCG Tab TAKE 1 TABLET EVERY MORNING 90 Tab 2 ??? Glucose Blood (ONE TOUCH ULTRA TEST) Strip Check blood sugars twice a day or as directed DX E11.9 100 Strip 11 ??? Oxybutynin Chloride (DITROPAN XL) 15 MG TABLET SR 24 HR 1 TABLET DAILY 90 Tab 3 ??? Lamotrigine 200 MG Tab 1 tablet daily ??? MetFORMIN HCl 850 MG Tab take 1 tablet by mouth twice daily 180 Tab 3 ??? Lisinopril 5 MG Tab TAKE 1 TABLET DAILY 90 Tab 2 ??? Insulin Pen Needle (UNIFINE PENTIPS) 31G X 6 MM Misc Test Blood Sugar 3-4 times daily or as directed - DX: E11.9 300 Each 3 ??? Insulin Glargine (LANTUS) 100 UNIT/ML Solution 12 units daily 4 Vial 5 ??? Ziprasidone HCl 60 MG Cap 1 CAPSULE AT NIGHT ??? Benztropine Mesylate 0.5 MG Tab TAKE ONE TABLET BY MOUTH 2 TIMES A DAY, 1 TABLET IN THE MORNINGAND 1 TABLET AT BEDTIME 60 Tab 6 ??? Escitalopram Oxalate 20 MG Tab 1 TABLET DAILY 30 Tab 11 ??? ASPIRIN (LOW-DOSE ASPIRIN) 81 MG OR TABS 1 TABLET DAILY documented in this encounter Plan of Treatment Upcoming Encounters Date Type Department Care Team (Latest Contact Info) Description 02/07/2025 9:25 AM EDT Office Visit [facility] [address] [place] [phone] Siomara Li MD [address] [place] [address] Return in about 3 months (around 03/12/2025). 05/12/2025 12:45 PM EDT CPE - Comprehensive Physical Exam [facility] [address] [place] [address] Tiffanie Rebolledo NP [address] [place] [address] Last CPE: Not Found 06/11/2025 11:05 AM EDT Office Visit [facility] [address] [place] [address] Siomara Li MD [address] [place] [address] Keep this appt and Dr Britt can [...] documented as of this encounter Care Teams Purchasing Supervisor Relationship Specialty Start Date End Date Johnny Izquierdo MD [address] [place] [address] PCP - General 01/14/06 04/21/22 Johnny Frazier MD [address] [place] [address] PCP - General Family Medicine 04/22/22 documented as of this encounter
--- OUTSIDE RECORDS SUMMARY | 2025-01-21 18:18 | XMS_ITS | Encounter Summary ---
Author Organization [facility] Address [address] [place] [address] Care Team Providers Care Real Property Appraiser Name Role Phone Johnny Izquierdo MD Primary Care Provider [phone] Johnny Frazier MD Primary Care Provider [phone] Encounter Details Date Type Department Care Team (Late st Contact Info) Description 05/23/2008 Orders Only [facility] [address] [place] [address] Lianna Meléndez, JEROME Vargas [facility], PC [address] [place], [place] [id number] Social History Tobacco Use Types Packs/Day Years [...] Description 02/07/2025 9:25 AM EDT Office Visit [facility] [address] [place] [phone] Siomara Li MD [address] [place] [address] Return in about 3 months (around 03/12/2025). 05/12/2025 12:45 PM EDT CPE - Comprehensive Physical Exam [facility] [address] [place] [address] Tiffanie Rebolledo, REMOTE CONTROL MIRROR INSTALLER [address] [place] [address] Last CPE: Not Found 06/11/2025 11:05 AM EDT Office Visit [facility] [address] [place] [phone] Siomara Li MD [address] [place] [address] Keep this appt and Dr Britt can discuss at the January visit keep or move out documented as of this encounter Procedures * Due to [place] law, this organization might not be sharing negative HIV tests. Procedure Name Priority Date/Time Associated Diagnosis Comments HEMOGLOBIN A1C Routine 05/23/2008 Diabetes CARDIAC RISK/LIPID PROFILE I Routine 05/23/2008 Hyperlipidemia BASIC METABOLIC PANEL Routine 05/23/2008 HTN MICROALBUMIN (RANDOM URINE) Routine 05/23/2008 Diabetes CBC 5 PART DIFF Routine 05/23/2008 Hypertension ALANINE AMINOTRANSFERASE (ALT), SERUM Routine 05/23/2008 Hyperlipidemia ASPARTATE AMINOTRANSFERASE (AST), SERUM Routine 05/23/2008 Hyperlipidemia TSH, THYROTROPIN Routine 05/23/2008 Hypothyroid documented in this encounter Results * Due to [place] law, this organization might not be sharing negative HIV tests. * (ABNORMAL) CBC 5 PART DIFF (05/23/2008) WHITE BLOOD COUNT 7.1 3.8 - 10.8 THOUS/UL RBC 4.76 3.80 - 5.10 MIL/UL Hemoglobin 14.7 11.7 - 15.5 G/DL HCT (HEMATOCRIT) 43.2 35.0 - 45.0 % MCV 90.8 80.0 - 100.0 FL MCH 31.0 27.0 - 33.0 PG MCHC 34.1 32.0 - 36.0 G/DL BAND % 0 0 - 5 % NEUTROPHIL % 48 48 - 75 % LYMPHOCYTE % 44(H) 17 - 40 % MONOCYTE % 5 0 - 14 % EOSINOPHIL % 2 0 - 5 % BASOPHIL % 1 0 - 3 % ATYPICAL LYMPHOCYTE % 0 0 - 5 % PLATELETS 148 140 - 400 THOUS/UL BANDS # 0 0 - 750 CELLS/MCL NEUTROPHILS # 3408 1500 - 7800 CELLS/MCL LYMPHOCYTES # 3124 850 - 3900 CELLS/MCL MONOCYTES # 355 200 - 950 CELLS/MCL EOSINOPHILS # 142 15 - 550 CELLS/MCL BASOPHILS # 71 0 - 200 CELLS/MCL ATYPICAL LYMPHOCYTES # 0 0 - 200 CELLS/MCL RDW 13.6 11.0 - 15.0 % MPV 12.7(H) 7.5 - 11.5 FL 05/23/2008 05/23/2008 3:2 5 PM EDT Lianna Meléndez [facility] SAME DAY RESULT Final Re sult * (ABNORMAL) TSH (THYROTROPIN) (05/23/2008) [facility] TSH, THYROTROPIN 4.79(H) 0.40 - 4.50 UIU/ML 05/23/2008 05/23/2008 3:2 5 PM EDT Lianna Meléndez [facility] Final Result * BASIC METABOLIC PANEL (05/23/2008) [facility] CALCIUM 9.1 8.6 - 10.2 MG/DL BUN 10 7 - 25 MG/DL CREATININE 0.87 0.50 - 1.20 MG/DL Glucose 80 65 - 99 MG/DL SODIUM 144 135 - 146 MMOL/L POTASSIUM 4.4 3.5 - 5.3 MMOL/L CHLORIDE 108 98 - 110 MMOL/L CARBON DIOXIDE 26 21 - 33 MMOL/L 05/23/2008 05/23/2008 3:2 5 PM EDT Result [facility] us Lianna Meléndez [facility] SAME DAY RESULT Final Re sult * MICROALBUMIN (RANDOM URINE) (05/23/2008) CREATININE (URINE) 62 20 - 320 MG/DL Microalbumin (Urine) 6 0 - 29 UG/ML MICROALBUMIN/CREA T RATIO (URINE) 10 0 - 29 Comment:UNITS: UG/MG CREATIN INE 05/23/2008 05/23/2008 3:2 5 PM EDT us Lianna Meléndez [facility] Final Result * (ABNORMAL) HEMOGLOBIN A1C (05/23/2008) [facility] Hemoglobin A1C 6.0(H) 0.0 - 5.9 % GLUCOSE MEAN VALUE 136 MG/DL 05/23/2008 05/23/2008 3:2 5 PM EDT Result [facility]ly [facility] us Lianna Meléndez [facility] Final Result * (ABNORMAL) CARDIAC RISK/LIPID PROFILE I (05/23/2008) [facility]ologist [facility] CHOLESTEROL, TOTAL 163 125 - 200 MG/DL TRIGLYCERIDES 191(H) 30 - 149 MG/DL HDL-CHOLESTEROL 26(L) 40 - 77 MG/DL LDL-CHOLESTEROL 99 62 - 130 MG/DL Comment: RISK CATEGORY: ??LDL-CHOLESTEROL GOAL CHD AND CHD RISK EQUIVALENTS: ??<100 MULTIPLE (2+) FACTORS: ??<130 ZERO TO ONE RISK FACTOR: ??<160 CHD RELATIVE RISK RATIO (TOTAL/HDL) 6.27(H) 0.0 - 5.0 Comment:(1.8 X AVERAGE) 05/23/2008 05/23/2008 3:2 5 PM EDT Result [facility] us Lianna Meléndez [facility] Final Result * ALANINE AMINOTRANSFERASE (ALT), SERUM (05/23/2008) ALT (SGPT) 16 6 - 40 U/L 05/23/2008 05/23/2008 3:2 5 PM EDT Lianna Meléndez [facility] SAME DAY RESULT Final Re sult * ASPARTATE AMINOTRANSFERASE (AST), SERUM (05/23/2008) AST (SGOT) 17 10 - 35 U/L 05/23/2008 05/23/2008 3:2 5 PM EDT Lianna Meléndez [facility] SAME DAY RESULT Final Re sult documented in this encounter Visit Diagnoses Diagnosis Hyperlipidemia Other and unspecified hyperlipidemia Diabetes (HCC) Type II or unspecified type diabetes mellitus without mention of complication, not stated as uncontrolled HTN Unspecified essential hypertension Hypothyroid Unspecified hypothyroidism Hypertension Unspecified essential hypertension documented in this encounter Additional Health Concerns Infection Onset Date Last Indicated Resolved Time COVID-19 Rule-Out 09/12/2020 09/12/2020 12/07/2020 8:13 PM EST documented as of this encounter Care Teams Real Property Appraiser Relationship Specialty Start Date End Date Johnny Izquierdo MD [address] [place] [address] PCP - General 01/14/06 04/21/22 Johnny Frazier MD [address] [place] [address] PCP - General Family Medicine 04/22/22 documented as of this encounter
--- OUTSIDE RECORDS SUMMARY | 2025-01-21 18:18 | XMS_ITS | Encounter Summary ---
Author Organization [facility] Address [address] [place] [address] Care Team Providers Care Analytical Technician Name Role Phone Johnny Izquierdo MD Primary Care Provider [phone] Johnny Frazier MD Primary Care Provider Encounter Details Date Type Department Care Team (Late st Contact Info) Description 11/04/2013 [facility] [address] [place] [phone] Lianna Meléndez DNP Timothy W Gallagher, DC, PC [address] [place], [place] [phone] Social History Tobacco Use Types Packs/Day Years [...] as of this encounter Progress Notes * Lianna Meléndez DNP - 11/05/2013 6:09 PM ESTQuick Note: Started on diflucan at ov documented in this encounter Plan of Treatment Upcoming Encounters Date Type Department Care Team (Latest Contact Info) Description 02/07/2025 9:25 AM EDT Office Visit [facility] [address] [place] [address] Siomara Li MD [address] [place] [address] Return in about 3 months (around 03/12/2025). 05/12/2025 12:45 PM EDT CPE - Comprehensive Physical Exam [facility] [address] [place] [address] Tiffanie Rebolledo, HEAD RESIDENT [address] [place] [address] Last CPE: Not Found 06/11/2025 11:05 AM EDT Office Visit [facility] [address] [place] [address] Siomara Li MD [address] [place] [address] Keep this appt and Dr Britt can discuss at the January visit keep or move out documented as of this encounter Procedures * Due to [facility] law, this organization might not be sharing negative HIV tests. Procedure Name Priority Date/Time Associated Diagnosis Comments BV/VAGINITIS PANELDNA PROBE(AFFIRM) Routine 11/04/2013 4:10 PM EST Vaginal discharge Candidiasis of vagina documented in this encounter Results * Due to [facility] law, this organization might not be sharing negative HIV tests. * (ABNORMAL) BV/VAGINITIS PANELDNA PROBE (11/04/2013 4:10 PM EST) Trichomonas vaginalis rRNA (Genital) NOT DETECTED NOT DETECTED [facility] Comment:{TRICHOMONAS: {[id number]) Gardnerella vaginalis rRNA (Genital) NOT DETECTED NOT DETECTED [facility] Comment:{GARDNERELLA: {[id number]) Adela sp rRNA (Vag) DETECTED(A) NOT DETECTED [facility] Comment:{ADELA: {[id number]) 11/04/2013 4:10 PM EST 11/05/2013 12:10 AM EST Narrative Resulting Agency Comment [id number] us Lianna Meléndez DNP LABORATORY Final Result Performing Organization Address City/State/[facility] Co de Phone Number [facility] [address] [place] [address] documented in this encounter Visit Diagnoses Diagnosis Vaginal discharge Leukorrhea, not specified as infective Candidiasis of vagina Candidiasis of vulva and vagina documented in this encounter Additional Health Concerns Infection Onset Date Last Indicated Resolved Time COVID-19 Rule-Out 09/12/2020 09/12/2020 12/07/2020 8:13 PM EST documented as of this encounter Care Teams Analytical Technician Relationship Specialty Start Date End Date Johnny Izquierdo MD [address] [facility] [place] [address] PCP - General 01/14/06 04/21/22 Johnny Frazier MD [address] [place] [address] PCP - General Family Medicine 04/22/22 documented as of this encounter
--- OUTSIDE RECORDS SUMMARY | 2025-01-21 18:18 | XMS_ITS | Encounter Summary ---
Author Organization [facility] Address [address] [place] [address] Care Team Providers Care Toolsmith Name Role Phone Johnny Izquierdo MD Primary Care Provider [phone] Johnny Frazier MD Primary Care Provider [phone] Encounter Details Date Type Department Care Team (Late st Contact Info) Description 11/24/2016 Orders Only [facility] CORRUGATOR SUPERVISOR [address] [place] [address] Melissa Mcneill CRNP [address] [place] [address] Social History Tobacco Use Types Packs/Day Years [...] as of this encounter Progress Notes * Jaida Bullard - 11/30/2016 3:41 PM Abbi Note: Copied/pasted from provider progress notes: If this pap is negative, can stop screening paps. Results letter with ANNAMARIA recommendation mailed to pt. On problem list. documented in this encounter Plan of Treatment Upcoming Encounters Date Type Department Care Team (Latest Contact Info) Description 02/07/2025 9:25 AM EDT Office Visit [facility] [address] [place] [address] Siomara Li MD [address] [place] [address] Return in about 3 months (around 03/12/2025). 05/12/2025 12:45 PM EDT CPE - Comprehensive Physical Exam [facility] [address] [place] [phone] Tiffanie Rebloledo, TRAINMAN [address] [place] [address] Last CPE: Not Found 06/11/2025 11:05 AM EDT Office Visit [facility] [address] [place] [phone] Siomara Li MD [address] [place] [address] Keep this appt and Dr Britt can [...] Component 6.3( 10:29 AM EST) No Ricarda Weesk documented as of this encounter Procedures * Due to [place] [employer] law, this organization might not be sharing negative HIV tests. Procedure Name Priority Date/Time Associated Diagnosis Comments [facility] FPGS PAP AND HR HPV DNA Routine 11/24/2016 2:42 PM EST Cervical cancer screening documented in this encounter Results * Due to [place] state law, this organization might not be sharing negative HIV tests. * [facility] PAP AND HR HPV DNA (11/24/2016 2:42 PM EST) Clinical information Postmenopausal [facility] Date last menstrual period PM [facility] Date of previous PAP smear NONE GIVEN [facility] Date of previous biopsy NONE GIVEN [facility] Specimen source (Cvx/Vag) Vagina, Cervix, Endocervix [facility] Statement of Adequacy (Cvx/Vag) Satisfactory for evaluation. Endocervical/mccauley sformation zone component present. [facility] Cytology, Pap Smear Negative for intraepithelial lesion or malignancy. Intacct Cytology study comment (Cvx/Vag) This Pap test has been evaluated with computer assisted technology. Intacct [place] Support Worker (Cvx/Vag) ADRIEL CT(ASCP) CT screening location: [place] [address] Intacct HPV MRNA E6/E7 Not Detected NOT DETECTED [facility] Comment: This test was performed using the APTIMA HPV Assay ([employer] This assay detects E6/E7 viral messenger RNA (mRNA) from 14 high-risk HPV types (16,18,31,33,35,39,45,51,52,56,58,59,66,68). The analytical performance characteristics of this assay, when used to test SurePath specimens, have been determined by [employer] 11/24/2016 2:42 PM EST 11/24/2016 10:53 PM EST Narrative Resulting Agency Comment [id number] Melissa YIN PATHOLOGY-INTERFACED Final Result Performing Organization Address City/State/[facility] Co de Phone Number [facility] [address] [place] [address] documented in this encounter Visit Diagnoses Diagnosis Cervical cancer screening Screening for malignant neoplasm of the cervix documented in this encounter Additional Health Concerns Infection Onset Date Last Indicated Resolved Time COVID-19 Rule-Out 09/12/2020 09/12/2020 12/07/2020 8:13 PM EST documented as of this encounter Care Teams Toolsmith Relationship Specialty Start Date End Date Johnny Izquierdo MD [address] [facility] [place] [address] PCP - General 01/14/06 04/21/22 Johnny Frazier MD [address] [facility] [place] [address] PCP - General Family Medicine 04/22/22 documented as of this encounter
--- OUTSIDE RECORDS SUMMARY | 2025-01-21 18:18 | XMS_ITS | Encounter Summary ---
Author Organization [facility] Address [address] [place] [address] Care Team Providers Care First Front Ventilator Name Role Phone Johnny Izquierdo MD Primary Care Provider [phone] Johnny Frazier MD Primary Care Provider [phone] Encounter Details Date Type Department Care Team (Late st Contact Info) Description 08/23/2016 Orders Only [facility] [address] [place] [address] Linda Dickson, SOPHIE Social History [...] encounter Progress Notes * Katy Antoine - 08/24/2016 9:50 AM EDTQuick Note: Letter sent * Linda Dickson - 08/24/2016 8:36 AM EDTQuick Note: Labs normal, ok for surgery, please send normal letter. documented in this encounter Plan of Treatment Upcoming Encounters Date Type Department Care Team (Latest Contact Info) Description 02/07/2025 9:25 AM EDT Office Visit [facility] [address] [place] [address] Siomara Li MD [address] [place] [address] Return in about 3 months (around 03/12/2025). 05/12/2025 12:45 PM EDT CPE - Comprehensive Physical Exam [facility] [address] [place] [phone] Tiffanie Rebolledo, SUPERVISOR STITCHING DEPARTMENT [address] [place] [address] Last CPE: Not Found 06/11/2025 11:05 AM EDT Office Visit [facility] [address] [place] [phone] Siomara Li MD [address] [place] [address] Keep this appt and Dr Britt can [...] of this encounter Procedures * Due to [place] state law, this organization might not be sharing negative HIV tests. Procedure Name Priority Date/Time Associated Diagnosis Comments CBC INCLUDES DIFFERENTIAL AND PLATELET COUNT Routine 08/23/2016 2:40 PM EDT Preoperative examination BASIC METABOLIC PANEL WITH (GFR) Routine 08/23/2016 2:40 PM EDT Preoperative examination documented in this encounter Results * Due to [place] state law, this organization might not be sharing negative HIV tests. * BASIC METABOLIC PANEL WITH (GFR) (08/23/2016 2:40 PM EDT) Glucose 75 65 - 99 mg/dL [facility] Comment: {GLUCOSE {[id number]) ? Fasting reference interval Urea Nitrogen Blood (BUN) 11 7 - 25 mg/dL [facility] Comment:{UREA NITROGEN (BUN) {[id number]) Creatinine 0.74 0.50 - 0.99 mg/dL [facility] Comment: {CREATININE {[id number]) For patients >49 years of age, the reference limit for Creatinine is approximately 13% higher for people identified as -Syrian. GFR 85 > OR = 60 mL/min/1 .73m2 [facility] Comment:{eGFR NON-AFR. AMERI CAN {[id number]) GFR () 99 > OR = 60 mL/min/1 .73m2 [facility] Comment:{eGFR AMERIC AN {[id number]) BUN/Creatinine Ratio NOT APPLICABLE 6 - 22 (calc) [facility] Comment:{BUN/CREATININE RATI O {[id number]) Sodium 139 135 - 146 mmol/L [facility] Comment:{SODIUM {[id number]) Potassium 4.4 3.5 - 5.3 mmol/L [facility] Comment:{POTASSIUM {[id number]) Chloride 105 98 - 110 mmol/L [facility] Comment:{CHLORIDE {[id number]) Carbon dioxide 27 20 - 31 mmol/L [facility] Comment:{CARBON DIOXIDE {[id number]) Calcium 9.4 8.6 - 10.4 mg/dL [facility] Comment:{CALCIUM {[id number]) 08/23/2016 2:40 PM EDT 08/23/2016 10:37 PM EDT Narrative [facility] - 08/24/2016 12:42 AM EDT Please note that this estimated GFR [...] needs for GFR calculation. Resulting Agency Comment [id number] Linda Dickson NP LABORATORY Final Result [facility] [address] [place] [address] * CBC INCLUDES DIFFERENTIAL AND PLATELET COUNT (08/23/2016 2:40 PM EDT) WBC 7.7 3.8 - 10.8 Thousand/u L [facility] Comment:{WHITE BLOOD CELL CO UNT {[id number]) RBC 4.46 3.80 - 5.10 Million/uL [facility] Comment:{RED BLOOD CELL COUN T {[id number]) Hemoglobin 13.8 11.7 - 15.5 g/dL [facility] Comment:{HEMOGLOBIN {[id number]) Hematocrit 41.0 35.0 - 45.0 % [facility] Comment:{HEMATOCRIT {[id number]) MCV 91.9 80.0 - 100.0 fL [facility] Comment:{MCV {[id number]) MCH 30.9 27.0 - 33.0 pg [facility] Comment:{MCH {[id number]) MCHC 33.6 32.0 - 36.0 g/dL [facility] Comment:{MCHC {[id number]) RDW 13.9 11.0 - 15.0 % [facility] Comment:{RDW {[id number]) PLT 166 140 - 400 Thousand/u L [facility] Comment:{PLATELET COUNT {[id number]) MPV 11.2 7.5 - 11.5 fL [facility] Comment:{MPV {[id number]) Neutrophils # 4466 1500 - 7800 cells/uL [facility] Comment:{ABSOLUTE NEUTROPHIL S {[id number]) Lymphocytes # 2526 850 - 3900 cells/uL [facility] Comment:{ABSOLUTE LYMPHOCYTE S {[id number]) Monocytes # 477 200 - 950 cells/uL [facility] Comment:{ABSOLUTE MONOCYTES {[id number]) Eosinophils # 92 15 - 500 cells/uL [facility] Comment:{ABSOLUTE EOSINOPHIL S {[id number]) Basophils # 139 0 - 200 cells/uL [facility] Comment:{ABSOLUTE BASOPHILS {[id number]) Neutrophils % 58.0 % [facility] Comment:{NEUTROPHILS {[id number]) Lymphocytes % 32.8 % [facility] Comment:{LYMPHOCYTES {[id number]) Monocytes % 6.2 % [facility] Comment:{MONOCYTES {[id number]) Eosinophils % 1.2 % [facility] Comment:{EOSINOPHILS {[id number]) Basophils % 1.8 % [facility] Comment:{BASOPHILS {[id number]) 08/23/2016 2:40 PM EDT 08/23/2016 10:37 PM EDT Narrative Resulting Agency Comment [id number] Linda Dickson SUPERVISOR STITCHING DEPARTMENT LAB SAME DAY RESULT Final Re sult [facility] [address] [place] [address] documented in this encounter Visit Diagnoses Diagnosis Preoperative examination Preoperative examination, unspecified documented in this encounter Additional Health Concerns Infection Onset Date Last Indicated Resolved Time COVID-19 Rule-Out 09/12/2020 09/12/2020 12/07/2020 8:13 PM EST documented as of this encounter Care Teams First Front Ventilator Relationship Specialty Start Date End Date Johnny Izquierdo MD [address] [place] [address] PCP - General 01/14/06 04/21/22 Johnny Frazier MD [address] [place] [address] PCP - General Family Medicine 04/22/22 documented as of this encounter
--- OUTSIDE RECORDS SUMMARY | 2025-01-21 18:18 | XMS_ITS | Encounter Summary ---
Author Organization [facility] Address [address] [place] [address] Care Team Providers Care Collector Of Aquarium Specimens Name Role Phone Johnny Izquierdo MD Primary Care Provider [phone] Johnny Frazier MD Primary Care Provider [phone] Encounter Details Date Type Department Care Team (Late st Contact Info) Description 12/27/2016 Orders Only [facility] [address] [place] [phone] Linda Dickson, SOPHIE Social History Tobacco Use [...] as of this encounter Progress Notes * Bertha Babin - 12/28/2016 9:58 AM EST Lab letter sent to patient. * Linda Dickson - 12/28/2016 7:41 AM EST Please send normal letter. Ok for surgery documented in this encounter Plan of Treatment Upcoming Encounters Date Type Department Care Team (Latest Contact Info) Description 02/07/2025 9:25 AM EDT Office Visit [facility] [address] [place] [address] Siomara Li MD [address] [place] [phone] Return in about 3 months (around 03/12/2025). 05/12/2025 12:45 PM EDT CPE - Comprehensive Physical Exam [facility] [address] [place] [phone] Tiffanie Rebolledo, DATA ENTRY PROCESSOR [address] [place] [address] Last CPE: Not Found 06/11/2025 11:05 AM EDT Office Visit [facility] [address] [place] [phone] Siomara Li MD [address] [place] [phone] Keep this appt and Dr Britt can [...] of this encounter Procedures * Due to [place] state law, this organization might not be sharing negative HIV tests. Procedure Name Priority Date/Time Associated Diagnosis Comments HEPATITIS C AB WITH REFLEX TO RNA PCR, SERUM Routine 12/27/2016 7:50 AM EST Need for hepatitis C screening test CBC INCLUDES DIFFERENTIAL AND PLATELET COUNT Routine 12/27/2016 7:50 AM EST Preoperative examination THYROID STIMULATING HORMONE (TSH) WITH FREE T4 REFLEX, SERUM Routine 12/27/2016 7:50 AM EST Hypothyroidism (acquired) documented in this encounter Results * Due to [place] state law, this organization might not be sharing negative HIV tests. * THYROID STIMULATING HORMONE (TSH) WITH FREE T4 REFLEX, SERUM (12/27/2016 7:50 AM EST) TSH 1.33 0.40 - 4.50 mIU/L [facility] 12/27/2016 7:50 AM EST 12/27/2016 2:46 PM EST Narrative Resulting Agency Comment [id number] Linda Dickson NP LABORATORY Final Result Performing Organization Address [facility] Co de Phone Number [facility] [address] [place] [address] * HEPATITIS C AB WITH REFLEX TO RNA PCR, SERUM (12/27/2016 7:50 AM EST) Pathologist [facility] Hepatitis C virus Ab NON-REACTI VE NON-REACT ISAMAR [facility] Hepatitis C virus Ab Signal/Cutoff 0.05 <1.00 [facility] 12/27/2016 7:50 AM EST 12/27/2016 2:46 PM EST Narrative Resulting Agency Comment [id number] Linda Dickson NP LABORATORY Final Result Performing Organization Address City/[facility] Co de Phone Number [facility] [address] [place] [address] * CBC INCLUDES DIFFERENTIAL AND PLATELET COUNT (12/27/2016 7:50 AM EST) WBC 6.4 3.8 - 10.8 Thousand/u L [facility] RBC 4.70 3.80 - 5.10 Million/uL [facility] Hemoglobin 14.5 11.7 - 15.5 g/dL [facility] Hematocrit 42.4 35.0 - 45.0 % [facility] MCV 90.0 80.0 - 100.0 fL [facility] MCH 30.8 27.0 - 33.0 pg [facility] MCHC 34.2 32.0 - 36.0 g/dL [facility] RDW 13.1 11.0 - 15.0 % [facility] PLT 157 140 - 400 Thousand/u L [facility] MPV 11.2 7.5 - 12.5 fL [facility] Neutrophils # 3718 1500 - 7800 cells/uL [facility] Lymphocytes # 2074 850 - 3900 cells/uL [facility] Monocytes # 403 200 - 950 cells/uL [facility] Eosinophils # 122 15 - 500 cells/uL [facility] Basophils # 83 0 - 200 cells/uL [facility] Neutrophils % 58.1 % [facility] Lymphocytes % 32.4 % [facility] Monocytes % 6.3 % [facility] Eosinophils % 1.9 % [facility] Basophils % 1.3 % [facility] 12/27/2016 7:50 AM EST 12/27/2016 2:46 PM EST Narrative Resulting Agency Comment [id number] Linda Dickson DATA ENTRY PROCESSOR LAB SAME DAY RESULT Final Re toño Performing Organization Address City/State/[facility] Co de Phone Number [facility] [address] [place] [address] documented in this encounter Visit Diagnoses Diagnosis Preoperative examination Preoperative examination, unspecified Need for hepatitis C screening test Special screening examination for other specified viral diseases Hypothyroidism (acquired) Unspecified hypothyroidism documented in this encounter Additional Health Concerns Infection Onset Date Last Indicated Resolved Time COVID-19 Rule-Out 09/12/2020 09/12/2020 12/07/2020 8:13 PM EST documented as of this encounter Care Teams Collector Of Aquarium Specimens Relationship Specialty Start Date End Date Johnny Izquierdo MD [address] [place] [address] PCP - General 01/14/06 04/21/22 Johnny Frazier MD [address] [place] [address] PCP - General Family Medicine 04/22/22 documented as of this encounter
--- OUTSIDE RECORDS SUMMARY | 2025-01-21 18:18 | XMS_ITS | Encounter Summary ---
Author Organization [facility] Address [address] [place] [address] Care Team Providers Care Finishing Tunnel Operator Name Role Phone Johnny Izquierdo MD Primary Care Provider [phone] Johnny Frazier MD Primary Care Provider [phone] Encounter Details Date Type Department Care Team (Late st Contact Info) Description 12/19/2008 Orders Only [facility] [address] [place] [phone] Johnny Izquierdo MD [address] [place] [address] Social History Tobacco Use Types Packs/Day Years [...] Description 02/07/2025 9:25 AM EDT Office Visit [facility] [address] [place] [phone] Siomara Li MD [address] [place], [place] [phone] Return in about 3 months (around 03/12/2025). 05/12/2025 12:45 PM EDT CPE - Comprehensive Physical Exam [facility] [address] [place] [phone] Tiffanie Rebolledo NP [address] [place] [address] Last CPE: Not Found 06/11/2025 11:05 AM EDT Office Visit [facility] [address] [place] [phone] Siomara Li MD [address] [place] [address] Keep this appt and Dr Britt can discuss at the January visit keep or move out documented as of this encounter Procedures * Due to [place] law, this organization might not be sharing negative HIV tests. Procedure Name Priority Date/Time Associated Diagnosis Comments HEMOGLOBIN A1C Routine 12/19/2008 Diabetes CARDIAC RISK/LIPID PROFILE I Routine 12/19/2008 Hyperlipidemia BASIC METABOLIC PANEL Routine 12/19/2008 HTN MICROALBUMIN (RANDOM URINE) Routine 12/19/2008 Diabetes ALANINE AMINOTRANSFERASE (ALT), SERUM Routine 12/19/2008 Hyperlipidemia ASPARTATE AMINOTRANSFERASE (AST), SERUM Routine 12/19/2008 Hyperlipidemia THYROID CASCADE Routine 12/19/2008 Hyperlipidemia T4, FREE THYROXINE Routine 12/19/2008 documented in this encounter Results * Due to [place] law, this organization might not be sharing negative HIV tests. * T4, FREE THYROXINE (12/19/2008) FT4 1.3 0.8 - 1.8 NG/DL 12/19/2008 12/19/2008 5:1 1 PM EST Result Leia Izquierdo MD LABORATORY Final Result * BASIC METABOLIC PANEL (12/19/2008) Pathologist [facility] CALCIUM 9.3 8.6 - 10.2 MG/DL BUN 10 7 - 25 MG/DL CREATININE 0.76 0.50 - 1.20 MG/DL Glucose 94 65 - 99 MG/DL SODIUM 142 135 - 146 MMOL/L POTASSIUM 4.5 3.5 - 5.3 MMOL/L CHLORIDE 106 98 - 110 MMOL/L CARBON DIOXIDE 28 21 - 33 MMOL/L 12/19/2008 12/19/2008 5:1 1 PM EST Result Leia Izquierdo MD LAB SAME DAY RESULT Final Res ult * MICROALBUMIN (RANDOM URINE) (12/19/2008) Pathologist [facility] CREATININE (URINE) 70 20 - 320 MG/DL Microalbumin (Urine) < 5 0 - 29 UG/ML MICROALBUMIN/CREA T RATIO (URINE) SEE TEXT 0 - 29 Comment: UNITS: UG/MG CREATININE MICROALBUMIN <5, CANNOT CALCULATE RATIO 12/19/2008 12/19/2008 5:1 1 PM EST Result Leia Izquierdo MD LABORATORY Final Result * (ABNORMAL) HEMOGLOBIN A1C (12/19/2008) Pathologist [facility] Hemoglobin A1C 6.2(H) 0.0 - 5.9 % GLUCOSE MEAN VALUE 143 MG/DL 12/19/2008 12/19/2008 5:1 1 PM EST Result Leia Izquierdo MD LABORATORY Final Result * (ABNORMAL) THYROID CASCADE (12/19/2008) Pathologist [facility] TSH, THYROTROPIN 7.20(H) 0.40 - 4.50 UIU/ML 12/19/2008 12/19/2008 5:1 1 PM EST us Johnny Izquierdo MD LABORATORY Final Result * (ABNORMAL) CARDIAC RISK/LIPID PROFILE I (12/19/2008) CHOLESTEROL, TOTAL 175 125 - 200 MG/DL TRIGLYCERIDES 167(H) 30 - 149 MG/DL HDL-CHOLESTEROL 28(L) 40 - 77 MG/DL LDL-CHOLESTEROL 114 62 - 130 MG/DL Comment: RISK CATEGORY: ??LDL-CHOLESTEROL GOAL CHD AND CHD RISK EQUIVALENTS: ??<100 MULTIPLE (2+) FACTORS: ??<130 ZERO TO ONE RISK FACTOR: ??<160 CHD RELATIVE RISK RATIO (TOTAL/HDL) 6.25(H) 0.0 - 5.0 Comment:(1.7 X AVERAGE) 12/19/2008 12/19/2008 5:1 1 PM EST us Johnny Izquierdo MD LABORATORY Final Result * ALANINE AMINOTRANSFERASE (ALT), SERUM (12/19/2008) ALT (SGPT) 23 6 - 40 U/L 12/19/2008 12/19/2008 5:1 1 PM EST Result Leia Izquierdo MD LAB SAME DAY RESULT Final Res ult * ASPARTATE AMINOTRANSFERASE (AST), SERUM (12/19/2008) AST (SGOT) 20 10 - 35 U/L 12/19/2008 12/19/2008 5:1 1 PM EST Result Leia Izquierdo MD LAB SAME DAY RESULT Final Res ult documented in this encounter Visit Diagnoses Diagnosis Hyperlipidemia Other and unspecified hyperlipidemia Hypothyroid Unspecified hypothyroidism Diabetes (HCC) Type II or unspecified type diabetes mellitus without mention of complication, not stated as uncontrolled HTN Unspecified essential hypertension documented in this encounter Additional Health Concerns Infection Onset Date Last Indicated Resolved Time COVID-19 Rule-Out 09/12/2020 09/12/2020 12/07/2020 8:13 PM EST documented as of this encounter Care Teams Finishing Tunnel Operator Relationship Specialty Start Date End Date Johnny Izquierdo MD [address] [place] [address] PCP - General 01/14/06 04/21/22 Johnny Frazier MD [address] [place] [address] PCP - General Family Medicine 04/22/22 documented as of this encounter
--- OUTSIDE RECORDS SUMMARY | 2025-01-21 18:18 | XMS_ITS | Encounter Summary ---
Author Organization [facility] Address [address] [place] [address] Care Team Providers Care Button Cutting Machine Operator Name Role Phone Johnny Izquierdo MD Primary Care Provider [phone] Johnny Frazier MD Primary Care Provider [phone] Encounter Details Date Type Department Care Team (Late st Contact Info) Description 03/27/2014 Orders Only [facility] [address] [place] [phone] Johnny Izquierdo MD [address] [place], [place] [phone] Social History Tobacco Use Types Packs/Day Years [...] encounter Progress Notes * Katy Antoine - 03/28/2014 10:00 AM EDTQuick Note: The patients lab results are at an abnormal level by the protocol guidelines. Please review. No Letter was generated. Patient has no upcoming appointment until June documented in this encounter Plan of Treatment Upcoming Encounters Date Type Department Care Team (Latest Contact Info) Description 02/07/2025 9:25 AM EDT Office Visit [facility] [address] [place] [phone] Siomara Li MD [address] [place] [address] Return in about 3 months (around 03/12/2025). 05/12/2025 12:45 PM EDT CPE - Comprehensive Physical Exam [facility] [address] [place] [phone] Tiffanie Rebolledo, SILK WEAVER [address] [place] [address] Last CPE: Not Found 06/11/2025 11:05 AM EDT Office Visit [facility] [address] [place] [phone] Siomara Li MD [address] [place] [address] Keep this appt and Dr Britt can discuss at the Kelsi visit keep or move out documented as of this encounter Procedures * Due to [place] state law, this organization might not be sharing negative HIV tests. Procedure Name Priority Date/Time Associated Diagnosis Comments CBC (H/H, RBC, INDICES,WBC, PLT) Routine 03/27/2014 8:53 AM EDT Hypertension ASPARTATE AMINOTRANSFERASE (AST), SERUM Routine 03/27/2014 8:53 AM EDT Type 2 diabetes mellitus TSH, 3RD GENERATION Routine 03/27/2014 8 :53 AM EDT Hypothyroidism HEMOGLOBIN A1C Routine 03/27/2014 8:53 AM EDT Type 2 diabetes mellitus ALBUMIN (MICROALBUMIN), RANDOM URINE, WITH CREATININE Routine 03/27/2014 8:53 AM EDT Type 2 diabetes mellitus LIPID PANEL WITH REFLEX TO DIRECT LDL Routine 03/27/2014 8:53 AM EDT Type 2 diabetes mellitus BASIC METABOLIC PANEL WITH (GFR) Routine 03/27/2014 8:53 AM EDT Type 2 diabetes mellitus documented in this encounter Results * Due to [place] state law, this organization might not be sharing negative HIV tests. * CBC (H/H, RBC, INDICES,WBC, PLT) (03/27/2014 8:53 AM EDT) WBC 6.8 3.8 - 10.8 Thousand/u L [facility] Comment:{WHITE BLOOD CELL CO UNT {[id number]) RBC 4.70 3.80 - 5.10 Million/uL [facility] Comment:{RED BLOOD CELL COUN T {[id number]) Hemoglobin 14.6 11.7 - 15.5 g/dL [facility] Comment:{HEMOGLOBIN {[id number]) Hematocrit 42.9 35.0 - 45.0 % [facility] Comment:{HEMATOCRIT {[id number]) MCV 91.3 80.0 - 100.0 fL [facility] Comment:{MCV {[id number]) MCH 31.0 27.0 - 33.0 pg [facility] Comment:{MCH {[id number]) MCHC 34.0 32.0 - 36.0 g/dL [facility] Comment:{MCHC {[id number]) RDW 12.7 11.0 - 15.0 % [facility] Comment:{RDW {[id number]) PLT 145 140 - 400 Thousand/u L [facility] Comment:{PLATELET COUNT {[id number]) 03/27/2014 8:53 AM EDT 03/27/2014 2:27 PM EDT Narrative Resulting Agency Comment [id number] Johnny Izquierdo MD LAB SAME DAY RESULT Final Res ult [facility] [address] [place] [address] * TSH, 3RD GENERATION (03/27/2014 8:53 AM EDT) TSH 2.07 0.40 - 4.50 mIU/L [facility] Comment:{TSH {[id number]) 03/27/2014 8:53 AM EDT 03/27/2014 2:27 PM EDT Narrative Resulting Agency Comment [id number] Johnny Izquierdo MD LABORATORY Final Result [facility] [address] [place] [address] * (ABNORMAL) BASIC METABOLIC PANEL WITH (GFR) (03/27/2014 8:53 AM EDT) Glucose 103(H) 65 - 99 mg/dL [facility] Comment: {GLUCOSE {[id number]) ? Fasting reference interval Urea Nitrogen Blood (BUN) 13 7 - 25 mg/dL [facility] Comment:{UREA NITROGEN (BUN) {[id number]) Creatinine 0.89 0.50 - 0.99 mg/dL [facility] Comment: {CREATININE {[id number]) For patients >49 years of age, the reference limit for Creatinine is approximately 13% higher for people identified as -Scottish. GFR 69 > OR = 60 mL/min/1 .73m2 [facility] Comment:{eGFR NON-AFR. AMERI CAN {[id number]) GFR () 81 > OR = 60 mL/min/1 .73m2 [facility] Comment:{eGFR AMERIC AN {[id number]) BUN/Creatinine Ratio NOT APPLICABLE 6 - 22 (calc) [facility] Comment:{BUN/CREATININE RATI O {[id number]) Sodium 137 135 - 146 mmol/L [facility] Comment:{SODIUM {[id number]) Potassium 4.8 3.5 - 5.3 mmol/L [facility] Comment:{POTASSIUM {[id number]) Chloride 102 98 - 110 mmol/L [facility] Comment:{CHLORIDE {[id number]) Carbon dioxide 26 19 - 30 mmol/L [facility] Comment:{CARBON DIOXIDE {[id number]) Calcium 9.5 8.6 - 10.4 mg/dL [facility] Comment:{CALCIUM {[id number]) 03/27/2014 8:53 AM EDT 03/27/2014 2:27 PM EDT Narrative [facility] - 03/27/2014 5:50 PM EDT Please note that this estimated [...] needs for GFR calculation. Resulting Agency Comment [id number] Johnny Izquierdo MD LABORATORY Final Result [facility] [address] [place] [address] * ALBUMIN (MICROALBUMIN), RANDOM URINE, WITH CREATININE (03/27/2014 8:53 AM EDT) Creatinine (Urine) 62 20 - 320 mg/dL [facility] Comment:{CREATININE, RANDOM URINE {[id number]) Albumin (Urine) <0.2 mg/dL [facility] Comment: {MICROALBUMIN {[id number]) Reference Range Not established Albumin/Creatinine (Urine) NOTE <30 mcg/mg creat [facility] Comment: {MICROALBUMIN/CREATININE RATIO, RANDOM URINE {[id number]) The microalbumin value is less than 0.2 [...] patient to be within a diagnostic category. 03/27/2014 8:53 AM EDT 03/27/2014 2:27 PM EDT Narrative Resulting Agency Comment [id number] Johnny Izquierdo MD LABORATORY Final Result Performing Organization Address [facility]/ZIP Co de Phone Number [facility] [address] [place] [address] * ASPARTATE AMINOTRANSFERASE (AST), SERUM (03/27/2014 8:53 AM EDT) AST (SGOT) 16 10 - 35 U/L [facility] Comment:{AST {[id number]) 03/27/2014 8:53 AM EDT 03/27/2014 2:27 PM EDT Narrative Resulting Agency Comment [id number] Johnny Izquierdo MD LAB SAME DAY RESULT Final Res ult Performing Organization Address [facility] Co de Phone Number [facility] [address] [place] [address] * (ABNORMAL) LIPID PANEL WITH REFLEX TO DIRECT LDL (03/27/2014 8:53 AM EDT) Cholesterol 149 125 - 200 mg/dL [facility] Comment:{CHOLESTEROL, TOTAL {[id number]) HDL Cholesterol 27(L) > OR = 46 mg/dL [facility] Comment:{HDL CHOLESTEROL {[id number]) Triglyceride 212(H) <150 mg/dL [facility] Comment:{TRIGLYCERIDES {[id number]) LDL Cholesterol 80 <130 mg/dL (calc) [facility] Comment: {LDL-CHOLESTEROL {[id number]) Desirable range <100 mg/dL for patients with CHD or diabetes and <70 mg/dL for diabetic patients with known heart disease. CHOL/HDL Ratio 5.5(H) < OR = 5.0 (calc) [facility] Comment:{CHOL/HDLC RATIO {[id number]) Cholesterol Non-HDL 122 mg/dL (calc) [facility] Comment: {NON HDL CHOLESTEROL {[id number]) Target for non-HDL cholesterol is 30 mg/dL higher than LDL cholesterol target. 03/27/2014 8:53 AM EDT 03/27/2014 2:27 PM EDT Narrative Resulting Agency Comment [id number] Johnny Izquierdo MD LABORATORY Final Result Performing Organization Address [facility] Co de Phone Number [facility] [address] [place] [address] * (ABNORMAL) HEMOGLOBIN A1C (03/27/2014 8:53 AM EDT) Hemoglobin A1C 5.8(H) <5.7 % of total Hgb [facility] Comment: {HEMOGLOBIN A1c {[id number]) According to ADA guidelines, hemoglobin A1c <7.0% [...] mg/dL (calc) [facility] Comment:{MEAN PLASMA GLUCOSE {[id number]) 03/27/2014 8:53 AM EDT 03/27/2014 2:27 PM EDT Narrative Resulting Agency Comment [id number] Johnny Izquierdo MD LABORATORY Final Result Performing Organization Address City/[facility]/ZIP Co de Phone Number [facility] [address] [place] [address] documented in this encounter Visit Diagnoses Diagnosis Type 2 diabetes mellitus (HCC) Type II or unspecified type diabetes mellitus without mention of complication, not stated as uncontrolled Hypothyroidism Unspecified hypothyroidism Hypertension Unspecified essential hypertension documented in this encounter Additional Health Concerns Infection Onset Date Last Indicated Resolved Time COVID-19 Rule-Out 09/12/2020 09/12/2020 12/07/2020 8:13 PM EST documented as of this encounter Care Teams Button Cutting Machine Operator Relationship Specialty Start Date End Date Johnny Izquierdo MD [address] [place] [address] PCP - General 01/14/06 04/21/22 Johnny Frazier MD [address] [place] [address] PCP - General Family Medicine 04/22/22 documented as of this encounter
--- OUTSIDE RECORDS SUMMARY | 2025-01-21 18:18 | XMS_ITS | Encounter Summary ---
Author Organization [facility] Address [address] [place] [address] Care Team Providers Care Lay Brother Name Role Phone Johnny Frazier MD Primary Care Provider [phone] Encounter Details Date Type Department Care Team (Late Contact Info) Description 06/05/2024 Orders Only [facility] [address] [place] [phone] Johnny Frazier MD [address] [place] [address] Medications Social History Tobacco Use Types Packs/Day Years Used Date Smoking Tobacco: Some Days Cigarettes 0.5 56.5 Started: 07/19/1968 Smokeless Tobacco: Never Alcohol Use Standard Drinks/Week Comments Yes 0 (1 standard drink = 0.6 oz pur e alcohol) occasional drink Intimate Partner Violence Answer Date R ecorded Fear of Current or Ex-Partner Not on file Emotionally Abused Not on file 06/01/2023 Physically Abused Not on file 06/01/2023 Sexually Abused Not on file 06/01/2023 Feel Safe at Home Not on file 06/01/2023 Comments No Sex and Gender Information Value Date Recorded Sex Assigned at Not on file Legal Sex Female 6:50 PM EDT Gender Identity Not on file Sexual Orientation Not on file documented as of this encounter Plan of Treatment Upcoming Encounters Date Type Department Care Team (Latest Contact Info) Description 02/07/2025 9:25 AM EDT Office Visit [facility] [address] [place] [address] Siomara Li MD [address] [place] [address] Return in about 3 months (around 03/12/2025). 05/12/2025 12:45 PM EDT CPE - Comprehensive Physical Exam [facility] [address] [place] [phone] Tiffanie Rebolledo, WRAP KNITTING MACHINE OPERATOR [address] [place] [address] Last CPE: Not Found 06/11/2025 11:05 AM EDT Office Visit [facility] [address] [place] [phone] Siomara Li MD [address] [place] [phone] Keep this appt and Dr Britt [...] encounter Procedures * Due to [place] state law, this organization might not be sharing negative HIV tests. Procedure Name Priority Date/Time Associated Diagnosis Comments PTH, INTACT (WITHOUT CALCIUM) Routine 06/05/2024 11:22 AM EDT Chronic renal impairment, stage 3a CBC INCLUDES DIFFERENTIAL AND PLATELET COUNT Routine 06/05/2024 11:22 AM EDT Fatty liver TSH, 3RD GENERATION Routine 06/05/2024 1 1:22 AM EDT Hypothyroidism (acquired) MAGNESIUM, SERUM Routine 06/05/2024 11:2 2 AM EDT Gastroesophageal reflux disease, unspecified whether esophagitis present HEMOGLOBIN A1C Routine 06/05/2024 11:22 AM EDT Controlled type 2 diabetes mellitus with stage 1 chronic kidney disease, without long-term current use of insulin VITAMIN B12 (CYANOCOBALAMIN), SERUM Routine 06/05/2024 11:22 AM EDT Controlled type 2 diabetes mellitus with stage 1 chronic kidney disease, without long-term current use of insulin ALBUMIN (MICROALBUMIN), RANDOM URINE, WITH CREATININE Routine 06/05/2024 11:22 AM EDT Controlled type 2 diabetes mellitus with stage 1 chronic kidney disease, without long-term current use of insulin LIPID PANEL WITH REFLEX TO DIRECT LDL Routine 06/05/2024 11:22 AM EDT Hyperlipidemia with target LDL less than 100 COMPREHENSIVE METABOLIC PANEL WITH GFR Routine 06/05/2024 11:22 AM EDT Essential hypertension Fatty liver documented in this encounter Results * Due to [place] state law, this organization might not be sharing negative HIV tests. * TSH, 3RD GENERATION (12/03/2024 10:29 AM EST) TSH 0.51 0.40 - 4.50 mIU/L [facility] 12/03/2024 10:2 9 AM EST 12/03/2024 11:39 PM EST Narrative Resulting Agency Comment [id number] us Johnny Frazier MD LABORATORY Final Result Performing Organization Address City/State/[facility] Co de Phone Number [facility] [address] [place] [address] * (ABNORMAL) LIPID PANEL WITH REFLEX TO DIRECT LDL (06/05/2024 11:22 AM EDT) Cholesterol 179 <200 mg/dL [facility] HDL Cholesterol 34(L) > OR = 50 mg/dL [facility] Triglyceride 195(H) <150 mg/dL [facility] LDL Cholesterol 114(H) mg/dL (calc) [facility] Comment: Reference range: <100 Desirable range <100 mg/dL for primary prevention; ?? <70 mg/dL for patients with CHD or diabetic patients with > or = 2 CHD risk factors. LDL-C is now calculated using the Julieta calculation, which is a validated novel method providing better accuracy than the Friedewald equation in the estimation of LDL-C. Bobby SS et al. HECTOR. 2013;310(19): 4206-8093 (http://education.BAROnova/faq/QYN755) CHOL/HDL Ratio 5.3(H) <5.0 (calc) [facility] Cholesterol Non-HDL 145(H) <130 mg/dL (calc) [facility] Comment: For patients with diabetes plus 1 major ASCVD risk factor, treating to a non-HDL-C goal of <100 mg/dL (LDL-C of <70 mg/dL) is considered a therapeutic option. 06/05/2024 11:2 2 AM EDT 06/05/2024 11:31 PM EDT Narrative Resulting Agency Comment [id number] Johnny Frazier MD LABORATORY Final Result [facility] [address] [place] [address] * (ABNORMAL) HEMOGLOBIN A1C (06/05/2024 11:22 AM EDT) Hemoglobin A1C 6.6(H) <5.7 % of total Hgb [facility] Comment: For someone without known diabetes, a hemoglobin A1c value of 6.5% or greater indicates that they may have diabetes and this should be confirmed with a follow-up test. For someone with known diabetes, a value <7% indicates that their diabetes is well controlled and a value greater than or equal to 7% indicates suboptimal control. A1c targets should be individualized based on duration of diabetes, age, comorbid conditions, and other considerations. Currently, no consensus exists regarding use of hemoglobin A1c for diagnosis of diabetes for children. Estimated Average Glucose 158 mg/dL (calc) [facility] 06/05/2024 11:2 2 AM EDT 06/05/2024 11:31 PM EDT Narrative Resulting Agency Comment [id number] us Johnny Frazier MD LABORATORY Final Result Performing Organization Address [facility] Co de Phone Number [facility] [address] [place] [address] * ALBUMIN (MICROALBUMIN), RANDOM URINE, WITH CREATININE (06/05/2024 11:22 AM EDT) Creatinine (Urine) 26 20 - 275 mg/dL [facility] Albumin (Urine) 0.2 mg/dL [facility] Comment: Reference Range Not established Albumin/Creatinine (Urine) 8 <30 mg/g creat [facility] Comment: The ADA defines abnormalities in albumin excretion as follows: Albuminuria Category ?Result (mg/g creatinine) Normal to Mildly increased ?? <30 Moderately increased ? 30-299 Severely increased ? > OR = 300 The ADA recommends that at least two of three specimens collected within a 3-6 month period be abnormal before considering a patient to be within a diagnostic category. 06/05/2024 11:2 2 AM EDT 06/05/2024 11:31 PM EDT Narrative Resulting Agency Comment [id number] us Johnny Frazier MD LABORATORY Final Result Performing Organization Address [facility] de Phone Number [facility] [address] [place] [address] * VITAMIN B12 (CYANOCOBALAMIN), SERUM (06/05/2024 11:22 AM EDT) Vitamin B12 (Cobalamins) 465 200 - 1100 pg/mL [facility] 06/05/2024 11:2 2 AM EDT 06/05/2024 11:31 PM EDT Narrative Resulting Agency Comment [id number] us Johnny Frazier MD LABORATORY Final Result Performing Organization Address [facility] Co de Phone Number [facility] [address] [place] [address] * COMPREHENSIVE METABOLIC PANEL WITH GFR (06/05/2024 11:22 AM EDT) Glucose 91 65 - 99 mg/dL [facility] Comment:Fasting reference in terval Urea Nitrogen Blood (BUN) 16 7 - 25 mg/dL [facility] Creatinine 0.85 0.60 - 1.00 mg/dL [facility] EGFR 73 > OR = 60 mL/min/1. 73m2 [facility] BUN/Creatinine Ratio SEE NOTE: - (calc) [facility] Comment: ?? Not Reported: BUN and Creatinine are within ?? reference range. Sodium 138 135 - 146 mmol/L [facility] Potassium 4.6 3.5 - 5.3 mmol/L [facility] Chloride 101 98 - 110 mmol/L [facility] Carbon dioxide 27 20 - 32 mmol/L [facility] Calcium 9.8 8.6 - 10.4 mg/dL [facility] Protein Total (Serum) 7.8 6.1 - 8.1 g/dL [facility] Albumin 4.2 3.6 - 5.1 g/dL [facility] Globulin 3.6 1.9 - 3.7 g/dL (calc) [facility] Albumin/Globuli n 1.2 1.0 - 2.5 (calc) [facility] Bilirubin Total 0.3 0.2 - 1.2 mg/dL [facility] Alkaline phosphatase 83 37 - 153 U/L [facility] AST (SGOT) 25 10 - 35 U/L [facility] ALT (SGPT) 29 6 - 29 U/L [facility] 06/05/2024 11:2 2 AM EDT 06/05/2024 11:31 PM EDT Narrative [facility] - 06/06/2024 3:58 AM EDT Please note that this estimated [...] needs for GFR calculation. Resulting Agency Comment [id number] us Johnny Frazier MD LABORATORY Final Result [facility] [address] [place] [address] * (ABNORMAL) CBC INCLUDES DIFFERENTIAL AND PLATELET COUNT (06/05/2024 11:22 AM EDT) WBC 7.4 3.8 - 10.8 Thousand/u L [facility] RBC 4.13 3.80 - 5.10 Million/uL [facility] Hemoglobin 13.0 11.7 - 15.5 g/dL [facility] Hematocrit 39.4 35.0 - 45.0 % [facility] MCV 95.4 80.0 - 100.0 fL [facility] MCH 31.5 27.0 - 33.0 pg [facility] MCHC 33.0 32.0 - 36.0 g/dL [facility] RDW 13.1 11.0 - 15.0 % [facility] PLT 244 140 - 400 Thousand/u L [facility] MPV 12.8(H) 7.5 - 12.5 fL [facility] Neutrophils # 4914 1500 - 7800 cells/uL [facility] Lymphocytes # 1917 850 - 3900 cells/uL [facility] Monocytes # 422 200 - 950 cells/uL [facility] Eosinophils # 81 15 - 500 cells/uL [facility] Basophils # 67 0 - 200 cells/uL [facility] Neutrophils % 66.4 % [facility] Lymphocytes % 25.9 % [facility] Monocytes % 5.7 % [facility] Eosinophils % 1.1 % [facility] Basophils % 0.9 % [facility] 06/05/2024 11:2 2 AM EDT 06/05/2024 11:31 PM EDT Narrative Resulting Agency Comment [id number] us Johnny Frazier MD LAB SAME DAY RESULT Final Resu lt Performing Organization Address City/[facility] Co de Phone Number [facility] [address] [place] [address] * (ABNORMAL) TSH, 3RD GENERATION (06/05/2024 11:22 AM EDT) TSH 0.11(L) 0.40 - 4.50 mIU/L [facility] 06/05/2024 11:2 2 AM EDT 06/05/2024 11:31 PM EDT Narrative Resulting Agency Comment [id number] us Johnny Frazier MD LABORATORY Final Result Performing Organization Address City/[facility] Co de Phone Number [facility] [address] [place] [address] * MAGNESIUM, SERUM (06/05/2024 11:22 AM EDT) Pathologist [facility] Magnesium 1.7 1.5 - 2.5 mg/dL [facility] 06/05/2024 11:2 2 AM EDT 06/05/2024 11:31 PM EDT Narrative Resulting Agency Comment [id number] Johnny Frazier MD LABORATORY Final Result Performing Organization Address [facility] de Phone Number [facility] [address] [place] [address] * PTH, INTACT (WITHOUT CALCIUM) (06/05/2024 11:22 AM EDT) Pathologist [facility] Parathyroid Hormone (PTH), Intact 53 16 - 77 pg/mL [employer] Comment: Interpretive Guide ?Intact PTH ? Calcium ? ------- Normal Parathyroid ?Normal ? Normal Hypoparathyroidism ?Low or Low Normal ?Low Hyperparathyroidism ?? Primary ?Normal or High ? High ?? Secondary ?High ? Normal or Low ?? Tertiary ? High ? High Non-Parathyroid ?? Hypercalcemia ?Low or Low Normal ?High 06/05/2024 11:2 2 AM EDT 06/05/2024 11:31 PM EDT Narrative Resulting Agency Comment [id number] Johnny Frazier MD LABORATORY Final Result Performing Organization Address [facility]/ZIP Co de Phone Number [facility] [address] [place] [address] documented in this encounter Visit Diagnoses Diagnosis Chronic renal impairment, stage 3a (HCC) Gastroesophageal reflux disease, unspecified whether esophagitis present Hypothyroidism (acquired) Unspecified hypothyroidism Fatty liver Other chronic nonalcoholic liver disease Essential hypertension Controlled type 2 diabetes mellitus with stage 1 chronic kidney disease, without long-term current use of insulin (HCC) Hyperlipidemia with target LDL less than 100 Other and unspecified hyperlipidemia documented in this encounter Care Teams Lay Brother Relationship Specialty Start Date End Date Johnny Frazier MD [address] [facility] [place] [address] PCP - General Family Medicine 04/22/22 documented as of this encounter
--- OUTSIDE RECORDS SUMMARY | 2025-01-21 18:19 | XMS_ITS | Encounter Summary ---
Author Organization [facility] Address [address] [place] [address] Care Team Providers Care Time Signal Wirer Name Role Phone Johnny Izquierdo MD Primary Care Provider [phone] Johnny Frazier MD Primary Care Provider [phone] Encounter Details Date Type Department Care Team (Late st Contact Info) Description 07/12/2017 [facility] COMPRESSOR TECHNICIAN [address] [facility] [address] [place] [address] Eliseo Kirkland MD [address] [place] [address] Medications Social History Tobacco Use Types Packs/Day [...] Description 02/07/2025 9:25 AM EDT Office Visit [facility] [address] [place] [phone] Siomara Li MD [address] [place] [address] Return in about 3 months (around 03/12/2025). 05/12/2025 12:45 PM EDT CPE - Comprehensive Physical Exam [facility] [address] [place] [phone] Tiffanie Rebolledo, CHECK WRITING MACHINE OPERATOR [address] [place] [address] Last CPE: Not Found 06/11/2025 11:05 AM EDT Office Visit [facility] [address] [place] [phone] Siomara Li MD [address] [place] [address] Keep this appt and Dr Britt can [...] documented as of this encounter Care Teams Time Signal Wirer Relationship Specialty Start Date End Date Johnny Izquierdo MD [address] [place] [address] PCP - General 01/14/06 04/21/22 Johnny Frazier MD [address] [place] [address] PCP - General Family Medicine 04/22/22 documented as of this encounter
--- OUTSIDE RECORDS SUMMARY | 2025-01-21 18:19 | XMS_ITS | Encounter Summary ---
Author Organization [facility] Address [address] [place] [address] Care Team Providers Care Cycle Counter Name Role Phone Johnny Izquierdo MD Primary Care Provider Johnny Frazier MD Primary Care Provider [phone] Reason for Visit * Reason Comments E-prescribing Refill Request Encounter Details Date Type Department Care Team (Late st Contact Info) Description 08/05/2014 Refill [facility] [address] [place] [phone] Johnny Izquierdo MD [address] [place], [place] [phone] E-prescribing Refill Request Social History Tobacco Use [...] encounter Miscellaneous Notes * Telephone Encounter - Mejia Abby - 08/05/2014 11:28 AM EDT Faxed/E-prescribed medication renewal request(s) for Tatum Fine 64 y.o. female received from pharmacy. Verified and Confirmed pharmacy for patient. Any special requests or concerns?- none Last CPE with this specialty: 04/11/2005 Last OV with this specialty: 07/14/2014 Next OV: Future Appointments Date Time Provider Department Center 09/10/2014 3:00 PM Ale JohanKEMAR [facility] 09/24/2014 10:20 AM Kashif Mccullough DPM [facility] 10/10/2014 10:45 AM ANNAMARIA Toro [facility] Pertinent lab results: No labs suggested for any medication orders signed or pended in this encounter. Refresh if any orders changed. Allergies: Review of patient's allergies indicates no known allergies. BP Readings from Last 1 Encounters: 07/14/14 98/64 Patient Active Problem List Diagnosis Date Noted ??? Overactive bladder 07/16/2013 vesicare 10 bid ??? Chest pain 01/21/2011 01/21/11 hospitalized at [facility]. Had cardiac catheterization which was normal, both left and right heart evaluated. Lianna Meléndez NP , ??? S/P colonoscopy 10/29/2010 10/29/10 done 10/27/10 showed tubular adenoma. Lianna Meléndez NP ??? MOOD DISORDER xx0.37xx 08/19/2009 Lexapro 20 ??? Hypothyroidism 08/19/2009 Levothyroid 125mcg ??? Tobacco use disorder 08/19/2009 01/21/11 nicoderm patch 21 mg ordered, will decrease to 14 mg with next month refill. Lianna Meléndez NP ??? GERD (GASTROESOPHAGEAL REFLUX DISEASE) 10/19/2007 On ranitidine 150 ??? ALLERGIC RHINITIS 10/19/2007 nasonex , ??? NEUROPATHY IN DIABETES 10/19/2007 ??? Hyperlipidemia 04/06/2007 On atorvastatin 40 ??? ANXIETY STATE, NEUROTIC 04/06/2007 Buspirone and clonzapam ??? Bipolar affective disorder, depressed 04/06/2007 Geodon 80 ,Lamictil 100 Lexapro 20 Current Outpatient Prescriptions on File Prior to Visit Medication Sig Dispense Refill ??? TRIMETHOPRIM-SULFAMETHOXAZOLE (BACTRIM DS) 800-160 MG Tab 1 by mouth twice a day for 7 days 14 Tab 0 ??? Atorvastatin Calcium 40 MG Tab TAKE 1 TABLET BY MOUTH EVERY DAY 90 Tab 2 ??? Benztropine Mesylate 0.5 MG Tab TAKE ONE TABLET BY MOUTH 2 TIMES A DAY, 1 TABLET IN THE MORNINGAND 1 TABLET AT BEDTIME 60 Tab 0 ??? Lamotrigine 100 MG Tab take 1 tablet daily 90 Tab 0 ??? Lisinopril 5 MG Tab Take one by mouth daily 30 Tab 11 ??? Ziprasidone HCl 80 MG Cap 1 capsule daily 30 Cap 5 ??? ESTRADIOL VAGINAL (ESTRACE VAGINAL) 0.1 MG/GM Cream 1 APPLICATOR NIGHTLY IN THE VAGINA FOR 1 WEEK THEN MONDAY, MONDAY AND MONDAY 42.5 g 11 ??? Ranitidine HCl 150 MG Tab 1 TABLET TWICE DAILY 60 Tab 11 ??? Lactulose 10 GM/15ML Solution 1 tablespoon twice daily prn 960 mL 2 ??? Insulin Pen Needle (UNIFINE PENTIPS) 31G X 6 MM Misc Test Blood Sugar 3-4 times daily or as directed - DX: 250.00 100 Each 3 ??? Mometasone Furoate (NASONEX) 50 MCG/ACT Suspension 2 sprays each nostril twice per day 1 Inhaler 11 ??? Levothyroxine Sodium 125 MCG Tab TAKE 1 TABLET BY MOUTH DAILY 30 Tab 11 ??? ClonazePAM 0.5 MG Tab 1 TABLET DAILY 90 Tab 1 ??? Escitalopram Oxalate 20 MG Tab 1 TABLET DAILY 30 Tab 11 ??? Glucose Blood (ONE TOUCH ULTRA TEST) Strip Check blood sugar four times a day or as directed (DX 250.00) 100 Strip 11 ??? Insulin Glargine (LANTUS) 100 UNIT/ML Solution 12 units daily ??? ASPIRIN (LOW-DOSE ASPIRIN) 81 MG OR TABS 1 TABLET DAILY documented in this encounter Plan of Treatment Upcoming Encounters Date Type Department Care Team (Latest Contact Info) Description 02/07/2025 9:25 AM EDT Office Visit [facility] [address] [place] [address] Siomara Li MD [address] [place] [address] Return in about 3 months (around 03/12/2025). 05/12/2025 12:45 PM EDT CPE - Comprehensive Physical Exam [facility] [address] [place] [phone] Tiffanie Rebolledo, EXECUTIVE PERSONAL ASSISTANT [address] [place] [address] Last CPE: Not Found 06/11/2025 11:05 AM EDT Office Visit [facility] [address] [place] [phone] Siomara Li MD [address] [place] [address] Keep this appt and Dr Britt can [...] documented as of this encounter Care Teams Cycle Counter Relationship Specialty Start Date End Date Johnny Izquierdo MD [address] [place] [address] PCP - General 01/14/06 04/21/22 Johnny Frazier MD [address] [facility] [address] PCP - General Family Medicine 04/22/22 documented as of this encounter
--- OUTSIDE RECORDS SUMMARY | 2025-01-21 18:19 | XMS_ITS | Encounter Summary ---
Author Organization [facility] Address [address] [place] [address] Care Team Providers Care Network Communications Engineer Name Role Phone Johnny Izquierdo MD Primary Care Provider [phone] Johnny Frazier MD Primary Care Provider [phone] Encounter Details Date Type Department Care Team (Late st Contact Info) Description 08/10/2010 Orders Only [facility] [address] [place] [phone] Johnny Izquierdo MD [address] [place], [place] [phone] Social History Tobacco Use Types Packs/Day Years Used Date Smoking Tobacco: Every Day Cigarettes 1 30 Alcohol Use Standard Drinks/Week Comments Yes 0 (1 standard drink = 0.6 oz pur e alcohol) occasional drink Comments No Sex and Gender Information Value Date Recorded Sex Assigned at Not on file Legal Sex Female 6:50 PM EDT Gender Identity Not on file Sexual Orientation Not on file documented as of this encounter Progress Notes * Katy Antoine - 08/12/2010 9:21 AM EDTQuick Note: The patients lab results are at a abnormal but at a stable level by the protocol guidelines. Pleasereview and advise. and No Letter was generated. documented in this encounter Plan of Treatment Upcoming Encounters Date Type Department Care Team (Latest Contact Info) Description 02/07/2025 9:25 AM EDT Office Visit [facility] [address] [place] [address] Siomara Li MD [address] [place] [address] Return in about 3 months (around 03/12/2025). 05/12/2025 12:45 PM EDT CPE - Comprehensive Physical Exam [facility] [address] [place] [address] Tiffanie Rebolledo, DRAWING INSTRUCTOR [address] [place] [address] Last CPE: Not Found 06/11/2025 11:05 AM EDT Office Visit [facility] [address] [place] [address] Siomara Li MD [address] [place] [address] Keep this appt and Dr Britt can discuss at the January visit keep or move out documented as of this encounter Procedures * Due to [place] state law, this organization might not be sharing negative HIV tests. Procedure Name Priority Date/Time Associated Diagnosis Comments BASIC METABOLIC PANEL W/GLOMERULAR FILTRATION RATE (EGFR) Routine 08/10/2010 Diabetes HEMOGLOBIN A1C Routine 08/10/2010 Diabetes LIPID PANEL + CARDIAC RISK WITH REFLEX TO LDL DIRECT Routine 08/10/2010 Hyperlipidemia MICROALBUMIN (RANDOM URINE) Routine 08/10/2010 DM w/o complication type II ALANINE AMINOTRANSFERASE (ALT), SERUM Routine 08/10/2010 Hyperlipidemia ASPARTATE AMINOTRANSFERASE (AST), SERUM Routine 08/10/2010 Hyperlipidemia THYROID CASCADE Routine 08/10/2010 Hypothyroid URINALYSIS, DIPSTICK WITH REFLEX MICROSCOPIC Routine 08/10/2010 DM w/o complication type II Tobacco use disorder documented in this encounter Results * Due to [place] state law, this organization might not be sharing negative HIV tests. * URINALYSIS, DIPSTICK WITH REFLEX MICROSCOPIC (08/10/2010) COLOR (URINE) YELLOW YELLOW [facility] APPEARANCE (URINE) CLEAR CLEAR [facility] SPECIFIC GRAVITY 1.016 1.001 - 1.035 [facility] PH (URINE) 6.0 5.0 - 8.0 [facility] PROTEIN (URINE) NEG [facility]G [facility] GLUCOSE (URINE) NEG NEG [facility] Ketones (Urine) NEG NEG [facility] BILIRUBIN (URINE) NEG NEG [facility] BLOOD (URINE) NEG NEG [facility] WBC (URINE) NEG NEG [facility] NITRITE (URINE) NEG NEG [facility] 08/10/2010 08/10/2010 6:0 9 PM EDT Johnny Izquierdo MD LAB SAME DAY RESULT Final Res ult Performing Organization Address [facility] Co de Phone Number [facility] [address] [place] [address] * MICROALBUMIN (RANDOM URINE) (08/10/2010) CREATININE (URINE) 122 20 - 320 MG/DL [facility] Microalbumin (Urine) 27 NOT ESTABLISHED [facility] MICROALBUMIN/CRE AT RATIO (URINE) 22 0 - 29 [facility] Comment:UNITS: MCG/MG CREATI NINE 08/10/2010 08/10/2010 6:0 9 PM EDT Johnny Izquierdo MD LABORATORY Final Result Performing Organization Address [facility] Co de Phone Number [facility] [address] [place] [address] * THYROID CASCADE (08/10/2010) TSH, THYROTROPIN 1.241 0.40 - 4.50 UIU/ML [facility] 08/10/2010 08/10/2010 6:0 9 PM EDT Johnny Izquierdo MD LABORATORY Final Result Performing Organization Address [facility] de Phone Number [facility] [address] [place] [address] * (ABNORMAL) LIPID PANEL + CARDIAC RISK WITH REFLEX TO LDL DIRECT (08/10/2010) CHOLESTEROL, TOTAL 191 125 - 200 MG/DL [facility] TRIGLYCERIDES 122 30 - 149 MG/DL [facility] HDL-CHOLESTEROL 30(L) 40 - 77 MG/DL [facility] LDL-CHOLESTEROL 137(H) 62 - 130 MG/DL [facility] Comment: RISK CATEGORY: ??LDL-CHOLESTEROL GOAL CHD AND CHD RISK EQUIVALENTS: ??<100 MULTIPLE (2+) FACTORS: ??<130 ZERO TO ONE RISK FACTOR: ??<160 CHD RELATIVE RISK RATIO (TOTAL/HDL) 6.37(H) 0.0 - 5.0 [facility] Comment:(1.8 X AVERAGE) 08/10/2010 08/10/2010 6:0 9 PM EDT us Johnny Izquierdo MD LABORATORY Final Result Performing Organization Address [facility] Co de Phone Number [facility] [address] [place] [phone] * ASPARTATE AMINOTRANSFERASE (AST), SERUM (08/10/2010) AST (SGOT) 13 10 - 35 U/L [facility] 08/10/2010 08/10/2010 6:0 9 PM EDT us Johnny Izquierdo MD LAB SAME DAY RESULT Final Res ult Performing Organization Address [facility] de Phone Number [facility] [address] [place] [address] * ALANINE AMINOTRANSFERASE (ALT), SERUM (08/10/2010) ALT (SGPT) 9 6 - 40 U/L [facility] 08/10/2010 08/10/2010 6:0 9 PM EDT us Johnny Izquierdo MD LAB SAME DAY RESULT Final Res ult Performing Organization Address City/[facility]/ZIP Co de Phone Number [facility] [address] [place] [address] * (ABNORMAL) HEMOGLOBIN A1C (08/10/2010) Hemoglobin A1C 6.1(H) 0.0 - 5.7 % [facility] GLUCOSE MEAN VALUE 140 MG/DL [facility] 08/10/2010 08/10/2010 6:0 9 PM EDT Johnny Izquierdo MD LABORATORY Final Result Performing Organization Address [facility] Co de Phone Number [facility] [address] [place] [address] * BASIC METABOLIC PANEL W/GLOMERULAR FILTRATION RATE (EGFR) (08/10/2010) Pathologist [facility] CALCIUM 8.8 8.6 - 10.2 MG/DL [facility] BUN 13 7 - 25 MG/DL [facility] CREATININE 0.84 0.60 - 1.18 MG/DL [facility] Glucose 91 65 - 99 MG/DL [facility] SODIUM 141 135 - 146 MMOL/L [facility] POTASSIUM 4.4 3.5 - 5.3 MMOL/L [facility] CHLORIDE 107 98 - 110 MMOL/L [facility] CARBON DIOXIDE 25 21 - 33 MMOL/L [facility] GFR > 60 60 AND ABOVE [facility] Comment:UNITS: ML/MIN/1.73 S Q METERS EGFR > 60 60 AND ABOVE [facility] Comment:UNITS: ML/MIN/1.73 S Q METERS 08/10/2010 08/10/2010 6:0 9 PM EDT Narrative [facility] - 08/11/2010 2:38 AM EDT Please note that this estimated [...] with more precise needs for GFR calculation. us Johnny Izquierdo MD LABORATORY Final Result Performing Organization Address City/[facility]/ZIP Co de Phone Number [facility] [address] [place] [address] documented in this encounter Visit Diagnoses Diagnosis Type II or unspecified type diabetes mellitus without mention of complication, not stated as uncontrolled Hyperlipidemia Other and unspecified hyperlipidemia Hypothyroid Unspecified hypothyroidism Tobacco use disorder documented in this encounter Additional Health Concerns Infection Onset Date Last Indicated Resolved Time COVID-19 Rule-Out 09/12/2020 09/12/2020 12/07/2020 8:13 PM EST documented as of this encounter Care Teams Network Communications Engineer Relationship Specialty Start Date End Date Johnny Izquierdo MD [address] [place] [address] PCP - General 01/14/06 04/21/22 Johnny Frazier MD [address] [place] [address] PCP - General Family Medicine 04/22/22 documented as of this encounter
--- OUTSIDE RECORDS SUMMARY | 2025-01-21 18:19 | XMS_ITS | Encounter Summary ---
Author Organization [facility] Address [address] [place] [address] Care Team Providers Care Local Company Truck Driver Name Role Phone Johnny Izquierdo MD Primary Care Provider [phone] Johnny Frazier MD Primary Care Provider [phone] Encounter Details Date Type Department Care Team (Late st Contact Info) Description 02/27/2015 Orders Only [facility] SHORE WORKER [address] [facility] [address] [place] [address] Melissa Mcneill CRNP [address] [place] [address] Social History Tobacco Use Types Packs/Day Years [...] as of this encounter Progress Notes * Melissa Mcneill CRNP - 03/06/2015 10:25 AM EDTQuick Note: All set, nothing further ordered. Appears pt aware of results per 03/05/note * Claritza Riojas RN - 03/06/2015 9:19 AM EDTQuick Note: TO METALIZER to review - are any orders pending? Or are all labs you ordered resulted? * Melissa Mcneill CRNP - 03/05/2015 2:31 PM EDTQuick Note: No malignant cells noted in urine. No evidence of urine infection. Will await pt's diary as noted. * Tarah Harden - INACTIVE - 03/05/2015 10:28 AM EDTQuick Note: Spoke with pt and aware of results. Seen 02/26/2015. Per Stephany Mcneill's note, Once voiding diary received, and urine results back, I will review treatment options/further evaluation with MD . States she is on her last day of her voiding diary and will drop it off tomorrow. Results routed to Stephany Mcneill to review in the mean time. documented in this encounter Plan of Treatment Upcoming Encounters Date Type Department Care Team (Latest Contact Info) Description 02/07/2025 9:25 AM EDT Office Visit [facility] [address] [place] [phone] Siomara Li MD [address] [place] [address] Return in about 3 months (around 03/12/2025). 05/12/2025 12:45 PM EDT CPE - Comprehensive Physical Exam [facility] [address] [place] [phone] Tiffanie Rebolledo NP [address] [place] [phone] Last CPE: Not Found 06/11/2025 11:05 AM EDT Office Visit [facility] [address] [place] [phone] Siomara Li MD [address] [place] [address] Keep this appt and Dr Britt can discuss at the January visit keep or move out Scheduled Orders Name Type Priority Associated Diagnoses Orde r Schedule CYTOLOGY URINE Lab Routine Frequency of urination Expected: 02/27/2015, Expires: 02/28/2016 documented as of this encounter Goals Goal Patient Goal Type Associated Problems Recent Progress Patient-Stated? Author Quit smoking / using tobacco Lifestyle No Ricarda Weeks HEMOGLOBIN A1C % < 7 Result Component 6.3(12/03/2024 10:29 AM EST) No Ricarda Weeks documented as of this encounter Procedures * Due to [place] [employer] law, this organization might not be sharing negative HIV tests. Procedure Name Priority Date/Time Associated Diagnosis Comments CYTOLOGY, NON-SOFT WATER MECHANIC Routine 02/27/2015 11: 50 AM EDT CULTURE, URINE, ROUTINE Routine 02/27/2015 11:45 AM EDT Frequency of urination URINALYSIS, COMPLETE INCLUDES DIPSTICK AND MICROSCOPIC Routine 02/27/2015 11:45 AM EDT Frequency of urination documented in this encounter Results * Due to [place] [employer] My Car law, this organization might not be sharing negative HIV tests. * CYTOLOGY, NON-SOFT WATER MECHANIC (02/27/2015 11:50 AM EDT) Screener [facility], [place](ASCP) [facility] Comment:{SCREENER {[id number]) Pathologist Name Davi Ortega M.D. Direct , Board Certified in Anatomic and Clinical Pathology and Cytopathology (electronic signature) Consulting Pathologist [facility] [address] [place] [phone] [facility] Comment:{PATHOLOGIST {[id number]) Specimen source URINE [facility] Comment:{A SOURCE {[id number]) Procedure CYTOLOGY [facility] Comment:{A PROCEDURE {[id number]) Gross Observation The name on the container is in agreement with the requisition. 50 mL of clear yellow fluid, received in CytoLyt and processed by the Thinprep method. (KL) [facility] Comment:{A GROSS DESCRIPTION {[id number]) FINAL DIAGNOSIS NO MALIGNANT CELLS ARE IDENTIFIED Squamous and urothelial cells. [facility] Comment:{A DIAGNOSIS {[id number]) 02/27/2015 11:5 0 AM EDT 03/02/2015 8:26 AM EDT us [facility] PATHOLOGY-INTERFACED Final Result Performing Organization Address [facility] de Phone Number [facility] [address] [place] [address] * CULTURE, URINE, ROUTINE (02/27/2015 11:45 AM EDT) Bacteria culture (Urine) SEE NOTE [facility] Comment: {CULTURE, URINE, ROUTINE {[id number]) ??CULTURE, URINE, ROUTINE ??MICRO NUMBER: ?[id number] ??TEST STATUS: ? FINAL ??SPECIMEN SOURCE: ?? URINE ??SPECIMEN QUALITY: ??ADEQUATE ??RESULT: ?Multiple organisms present, each less than 10,000 ? CFU/mL. These organisms, commonly found on ? external and internal genitalia, are considered ? to be colonizers. No further testing performed. 02/27/2015 11:4 5 AM EDT 02/27/2015 10:12 PM EDT Narrative Resulting Agency Comment [id number] us Melissa YIN LABORATORY Final Resul t Performing Organization Address [facility] de Phone Number [facility] [address] [place] [address] * (ABNORMAL) URINALYSIS, COMPLETE INCLUDES DIPSTICK AND MICROSCOPIC (02/27/2015 11:45 AM EDT) Color (Urine) YELLOW YELLOW [facility] Comment:{COLOR {[id number]) Appearance (Urine) CLEAR CLEAR [facility] Comment:{APPEARANCE {[id number]) Specific gravity (Urine) 1.010 1.001 - 1.035 [facility] Comment:{SPECIFIC GRAVITY {[id number]) pH (Urine) 6.5 5.0 - 8.0 [facility] Comment:{PH {[id number]) Glucose (Urine) NEGATIVE NEGATIVE [facility] Comment:{GLUCOSE {[id number]) Bilirubin (Urine) NEGATIVE NEGATIVE [facility] Comment:{BILIRUBIN {[id number]) Ketones (Urine) NEGATIVE NEGATIVE [facility] Comment:{KETONES {[id number]) Hemoglobin (Urine) NEGATIVE NEGATIVE [facility] Comment:{OCCULT BLOOD {[id number]) Protein (Urine) NEGATIVE NEGATIVE [facility] Comment:{PROTEIN {[id number]) Nitrite (Urine) NEGATIVE NEGATIVE [facility] Comment:{NITRITE {[id number]) Leukocyte esterase (Urine) TRACE(A) NEGATIVE [facility] Comment:{LEUKOCYTE ESTERASE {[id number]) WBC (Urine) NONE SEEN < OR = 5 /HPF [facility] Comment:{WBC {[id number]) RBC (Urine Sed) 0-2 < OR = 2 /HPF [facility] Comment:{RBC {[id number]) Epithelial cells.squamous (Urine sed) NONE SEEN < OR = 5 /HPF [facility] Comment:{SQUAMOUS EPITHELIAL CELLS {[id number]) Bacteria (Urine) NONE SEEN NONE SEEN /HPF [facility] Comment:{BACTERIA {[id number]) Hyaline casts (Urine sed) NONE SEEN NONE SEEN /LPF [facility] Comment:{HYALINE CAST {[id number]) 02/27/2015 11:4 5 AM EDT 02/27/2015 10:12 PM EDT Narrative Resulting Agency Comment [id number] us Melissa Osito YIN LAB SAME DAY RESULT Final R esult [facility] [address] [place] [address] documented in this encounter Visit Diagnoses Diagnosis Frequency of urination- Primary Urinary frequency documented in this encounter Additional Health Concerns Infection Onset Date Last Indicated Resolved Time COVID-19 Rule-Out 09/12/2020 09/12/2020 12/07/2020 8:13 PM EST documented as of this encounter Care Teams Local Company Truck Driver Relationship Specialty Start Date End Date Johnny Izquierdo MD [address] [place] [address] PCP - General 01/14/06 04/21/22 Johnny Frazier MD [address] [place] [address] PCP - General Family Medicine 04/22/22 documented as of this encounter
--- OUTSIDE RECORDS SUMMARY | 2025-01-21 18:19 | XMS_ITS | Encounter Summary ---
Author Organization [facility] Address [address] [place] [address] Care Team Providers Care Superintendent Meter Tests Name Role Phone Johnny Frazier MD Primary Care Provider [phone] Encounter Details Date Type Department Care Team (Late st Contact Info) Description 12/03/2024 Orders Only [facility] [address] [place] [phone] Johnny Frazier MD [address] [place] [address] Social History Tobacco Use Types Packs/Day Years [...] as of this encounter Miscellaneous Notes * Result Encounter Note - Johnny Frazier MD - 12/03/2024 10:29 AM EST Please let the patient know the following: Thyroid level is in therapeutic range. Continue present dose of thyroid medicine. documented in this encounter Plan of Treatment Upcoming Encounters Date Type Department Care Team (Latest Contact Info) Description 02/07/2025 9:25 AM EDT Office Visit [facility] [address] [place] [phone] Siomara Li MD [address] [place] [address] Return in about 3 months (around 03/12/2025). 05/12/2025 12:45 PM EDT CPE - Comprehensive Physical Exam [facility] [address] [place] [phone] Tiffanie Rebolledo, SOPHIE [address] [place] [address] Last CPE: Not Found 06/11/2025 11:05 AM EDT Office Visit [facility] [address] [place] [phone] Siomara Li MD [address] [place] [address] Keep this appt and Dr Britt can [...] Procedure Name Priority Date/Time Associated Diagnosis Comments TSH, 3RD GENERATION Routine 12/03/2024 1 0:29 AM EST Hypothyroidism (acquired) documented in this encounter Results * Due to [place] state law, this organization might not be sharing negative HIV tests. * TSH, 3RD GENERATION (12/03/2024 10:29 AM EST) TSH 0.51 0.40 - 4.50 mIU/L [facility] 12/03/2024 10:2 9 AM EST 12/03/2024 11:39 PM EST Narrative Resulting Agency Comment [id number] us Johnny Frazier MD LABORATORY Final Result Performing Organization Address City/State/[facility] Co de Phone Number [facility] [address] [place] [address] documented in this encounter Visit Diagnoses Diagnosis Hypothyroidism (acquired) Unspecified hypothyroidism documented in this encounter Care Teams Superintendent Meter Tests Relationship Specialty Start Date End Date Johnny Frazier MD [address] [facility] [address] PCP - General Family Medicine 04/22/22 documented as of this encounter
--- OUTSIDE RECORDS SUMMARY | 2025-01-21 18:19 | XMS_ITS | Encounter Summary ---
Author Organization [facility] Address [address] [place] [address] Care Team Providers Care Tree Tapping Laborer Name Role Phone Johnny Frazier MD Primary Care Provider [phone] Reason for Visit * Reason Comments Imaging Study Encounter Details Date Type Department Care Team (Late st Contact Info) Description 12/05/2024 Telephone [facility] [address] [place] [phone] Chelo Sims, PLASTIC PRODUCTION MACHINE SETTER [address] [place] [address] Imaging Study Social History Tobacco Use Types Packs/Day Years [...] encounter Miscellaneous Notes * Telephone Encounter - Gail Villarreal RN - 12/05/2024 2:43 PM EST Noted by nursing. * Telephone Encounter - Kaila Jacobsen - 12/05/2024 2:26 PM EST Good Afternoon, Patient will call back to schedule Mammogram exam. Order will be removed on 02/03/2025. Thank you Radiology Scheduling Dept. documented in this encounter Plan of Treatment Upcoming Encounters Date Type Department Care Team (Latest Contact Info) Description 02/07/2025 9:25 AM EDT Office Visit [facility] [address] [place] [phone] Siomara Li MD [address] [place] [address] Return in about 3 months (around 03/12/2025). 05/12/2025 12:45 PM EDT CPE - Comprehensive Physical Exam [address] [phone] Tiffanie Rebolledo, PLASTIC PRODUCTION MACHINE SETTER [address] [place] [address] Last CPE: Not Found 06/11/2025 11:05 AM EDT Office Visit [facility] [address] [place] [phone] Siomara Li MD [address] [place] [address] Keep this appt and Dr Britt can [...] Diagnoses Not on filedocumented in this encounter Care Teams Tree Tapping Laborer Relationship Specialty Start Date End Date Johnny Frazier MD [address] [place] [address] PCP - General Family Medicine 04/22/22 documented as of this encounter
--- OUTSIDE RECORDS SUMMARY | 2025-01-21 18:19 | XMS_ITS | Encounter Summary ---
Author Organization [facility] Address [address] [place] [address] Care Team Providers Care Molding Utility Worker Name Role Phone Johnny Izquierdo MD Primary Care Provider [phone] Johnny Frazier MD Primary Care Provider [phone] Encounter Details Date Type Department Care Team (Late st Contact Info) Description 10/20/2020 Orders Only [facility] [address] [place] [phone] Johnny Izquierdo MD [address] [place], [place] [phone] Social History Tobacco Use Types Packs/Day Years [...] on file Sexual Orientation Not on file COVID-19 Exposure Response Date Recorded In the last month, have you been in contact with someone who was confirmed or suspected to have Coronavirus / COVID-19? No / Unsure 10/20/2020 9:16 AM EST documented as of this encounter Progress Notes * Chasity Perera CMA - 10/20/2020 9:47 AM EST Please review and advise. Pt does not have any upcoming appointments. No letter generated. * Tiffanie Rebolledo NP - 10/20/2020 9:47 AM EST Result reviewed with patient daughter Alma Rosa over phone will continue with metformin at current dose. documented in this encounter Plan of Treatment Upcoming Encounters Date Type Department Care Team (Latest Contact Info) Description 02/07/2025 9:25 AM EDT Office Visit [facility] [address] [place] [phone] Siomara Li MD [address] [place] [address] Return in about 3 months (around 03/12/2025). 05/12/2025 12:45 PM EDT CPE - Comprehensive Physical Exam [address] [phone] Tiffanie Rebolledo NP [address] [place] [address] Last CPE: Not Found 06/11/2025 11:05 AM EDT Office Visit [facility] [address] [place] [phone] Siomara Li MD [address] [place] [phone] Keep this appt and Dr Britt can discuss at the January visit keep or move out documented as of this encounter Goals Goal Patient Goal Type Associated Problems Recent Progress Patient-Stated? Author Blood Pressure < 140/80 Blood Pressure 143/65(2024 2:06 PM EST) No Arabella Solares PA Quit smoking / using tobacco Lifestyle No Ricarda Weeks HEMOGLOBIN A1C % < 7 Result Component 6.3( 5 10:29 AM EST) No Ricarda Weeks documented as of this encounter Procedures * Due to [place] [employer] law, this organization might not be sharing negative HIV tests. Procedure Name Priority Date/Time Associated Diagnosis Comments TSH, 3RD GENERATION Routine 10/20/2020 9 :47 AM EST Hypothyroidism (acquired) IRON PROFILE (IRON/TIBC), SERUM Routine 10/20/2020 9:47 AM EST Restless legs HEMOGLOBIN A1C Routine 10/20/2020 9:47 AM EST Type 2 diabetes mellitus without complication, without long-term current use of insulin VENIPUNCTURE Routine 10/20/2020 9:47 AM EST Hypertension, unspecified type documented in this encounter Results * Due to [place] [employer] law, this organization might not be sharing negative HIV tests. * IRON PROFILE (IRON/TIBC), SERUM (10/20/2020 9:47 AM EST) Iron 71 45 - 160 mcg/dL [facility] Iron binding capacity 304 250 - 450 mcg/dL (calc) [facility] Iron saturation 23 16 - 45 % (calc) [facility] 10/20/2020 9:47 AM EST 10/20/2020 10:56 AM EST Narrative Resulting Agency Comment [id number] Johnny Izquierdo MD LABORATORY Final Result Performing Organization Address City/State/[facility] Co de Phone Number [facility] [address] [place] [address] * (ABNORMAL) HEMOGLOBIN A1C (10/20/2020 9:47 AM EST) Hemoglobin A1C 6.8(H) <5.7 % of total Hgb [facility] [...] of diabetes for children. Estimated Average Glucose 165 mg/dL (calc) [facility] 10/20/2020 9:47 AM EST 10/20/2020 10:56 AM EST Narrative Resulting Agency Comment [id number] us Tiffanie Rebolledo NP LABORATORY Final Result Performing Organization Address [facility] de Phone Number [facility] [address] [place] [address] * TSH, 3RD GENERATION (10/20/2020 9:47 AM EST) TSH 1.07 0.40 - 4.50 mIU/L [facility] 10/20/2020 9:47 AM EST 10/20/2020 10:56 AM EST Narrative Resulting Agency Comment [id number] Tiffanie Rebolledo [employer]ERCOATER LABORATORY Final Result Performing Organization Address [facility] de Phone Number [facility] [address] [place] [address] * (ABNORMAL) BASIC METABOLIC PANEL WITH (GFR) (10/20/2020 9:47 AM EST) Glucose 103(H) 65 - 99 mg/dL [facility] Comment: ? Fasting reference interval For someone without known diabetes, a glucose value between 100 and 125 mg/dL is consistent with prediabetes and should be confirmed with a follow-up test. Urea Nitrogen Blood (BUN) 13 7 - 25 mg/dL [facility] Creatinine 0.79 0.50 - 0.99 mg/dL [facility] Comment: For patients >49 years of age, the reference limit for Creatinine is approximately 13% higher for people identified as -Citizen Of [place]. EGFR 76 > OR = 60 mL/min/1 .73m2 [facility] GFR () 89 > OR = 60 mL/min/1 .73m2 [facility] BUN/Creatinine Ratio NOT APPLICABLE 6 - 22 (calc) [facility] Sodium 137 135 - 146 mmol/L [facility] Potassium 4.5 3.5 - 5.3 mmol/L [facility] Chloride 101 98 - 110 mmol/L [facility] Carbon dioxide 27 20 - 32 mmol/L [facility] Calcium 9.4 8.6 - 10.4 mg/dL [facility] 10/20/2020 9:47 AM EST 10/20/2020 10:56 AM EST Narrative [facility] - 10/20/2020 6:20 PM EST Please note that this estimated [...] needs for GFR calculation. Resulting Agency Comment [id number] us Tiffanie Rebolledo NP LABORATORY Final Result [facility] [address] [place] [address] documented in this encounter Visit Diagnoses Diagnosis Hypertension, unspecified type Hypothyroidism (acquired) Unspecified hypothyroidism Type 2 diabetes mellitus without complication, without long-term current use of insulin (HCC) Restless legs Restless legs syndrome (RLS) documented in this encounter Additional Health Concerns Infection Onset Date Last Indicated Resolved Time COVID-19 Rule-Out 09/12/2020 09/12/2020 12/07/2020 8:13 PM EST documented as of this encounter Care Teams Molding Utility Worker Relationship Specialty Start Date End Date Johnny Izquierdo MD [address] [facility] [address] PCP - General 01/14/06 04/21/22 Johnny Frazier MD [address] [place] [address] PCP - General Family Medicine 04/22/22 documented as of this encounter
--- OUTSIDE RECORDS SUMMARY | 2025-01-21 18:19 | XMS_ITS | Encounter Summary ---
Author Organization [facility] Address [address] [place] [address] Care Team Providers Care Plant Specialist Name Role Phone Johnny Frazier MD Primary Care Provider [phone] Reason for Visit * Reason Comments Cancellation Encounter Details Date Type Department Care Team ([facility] Contact Info) Description 05/10/2022 Telephone CALL [facility]ENTER [facility] [address] [place] [address] Siomara Li MD [address] [place] [address] Cancellation Social History Tobacco Use Types Packs/Day Years Used Date Smoking Tobacco: Every Day Cigarettes 1 52.8 Started: [birth year]/19/1967; Last attempted to quit: 05/05/2021 Smokeless Tobacco: Never Alcohol Use Standard Drinks/Week Comments Yes 0 (1 standard drink = 0.6 oz pur e alcohol) occasional drink Comments No Sex and Gender Information Value Date Recorded Sex Assigned at Not on file Legal Sex Female 6:50 PM EDT Gender Identity Not on file Sexual Orientation Not on file documented as of this encounter Miscellaneous Notes * Telephone Encounter - Edyta Jhaveri - 05/10/2022 4:11 PM EDT Patient has some kind of metal in her body and was told she can not do an MRI will call back to reschedule as soon as she has more information Thank you [facility] schedule dept documented in this encounter Plan of Treatment Upcoming Encounters Date Type Department Care Team (Latest Contact Info) Description 02/07/2025 9:25 AM EDT Office Visit [facility] [address] [place] [phone] Siomara Li MD [address] [place] [address] Return in about 3 months (around 03/12/2025). 05/12/2025 12:45 PM EDT CPE - Comprehensive Physical Exam [facility] [address] [place] [phone] Tiffanie Rebolledo NP [address] [place] [address] Last CPE: Not Found 06/11/2025 11:05 AM EDT Office Visit [facility] [address] [place] [phone] Siomara Li MD [address] [place] [address] Keep this appt and Dr Britt can [...] on filedocumented in this encounter Care Teams Plant Specialist Relationship Specialty Start Date End Date Johnny Frazier MD [address] [place] [address] PCP - General Family Medicine 04/22/22 documented as of this encounter
--- OUTSIDE RECORDS SUMMARY | 2025-01-21 18:19 | XMS_ITS | Encounter Summary ---
Author Organization [facility] Address [address] [place] [address] Care Team Providers Care Medicaid Analyst Name Role Phone Johnny Frazier MD Primary Care Provider [phone] Encounter Details Date Type Department Care Team (Late st Contact Info) Description 12/03/2024 Orders Only [facility] [address] [place] [phone] Tiffanie Rebolledo NP [address] [place] [address] Social History Tobacco Use Types Packs/Day Years [...] Miscellaneous Notes * Result Encounter Note - Tiffanie Rebolledo NP - 12/03/2024 10:29 AM EST See TM documented in this encounter Plan of Treatment Upcoming Encounters Date Type Department Care Team (Latest Contact Info) Description 02/07/2025 9:25 AM EDT Office Visit [facility] [address] [place] [phone] Siomara Li MD [address] [place] [address] Return in about 3 months (around 03/12/2025). 05/12/2025 12:45 PM EDT CPE - Comprehensive Physical Exam [facility] [address] [place] [phone] Tiffanie Rebolledo NP [address] [place] [address] Last CPE: Not Found 06/11/2025 11:05 AM EDT Office Visit [facility] [address] [place] [phone] Siomara Li MD [address] [place] [address] Keep this appt and Dr Britt can [...] Procedure Name Priority Date/Time Associated Diagnosis Comments C-REACTIVE PROTEIN (CRP) - INFLAMMATION Routine 12/03/2024 10:29 AM EST Open wound of middle finger ERYTHROCYTE SEDIMENTATION RATE (ESR) Routine 12/03/2024 10:29 AM EST Open wound of middle finger CBC INCLUDES DIFFERENTIAL AND PLATELET COUNT Routine 12/03/2024 10:29 AM EST Open wound of middle finger HEMOGLOBIN A1C Routine 12/03/2024 10:29 AM EST Controlled type 2 diabetes mellitus with stage 1 chronic kidney disease, without long-term current use of insulin documented in this encounter Results * Due to [place] state law, this organization might not be sharing negative HIV tests. * (ABNORMAL) HEMOGLOBIN A1C (12/03/2024 10:29 AM EST) Hemoglobin A1C 6.3(H) <5.7 % of total Hgb [facility] Comment: For someone without known diabetes, a hemoglobin A1c value between 5.7% and 6.4% is consistent with prediabetes and should be confirmed with a follow-up test. For someone with known diabetes, a value <7% indicates that their diabetes is well controlled. A1c targets should be individualized based on duration of diabetes, age, comorbid conditions, and other considerations. This assay result is consistent with an increased risk of diabetes. Currently, no consensus exists regarding use of hemoglobin A1c for diagnosis of diabetes for children. Estimated Average Glucose 147 mg/dL (calc) [facility] 12/03/2024 10:2 9 AM EST 12/03/2024 11:40 PM EST Narrative Resulting Agency Comment [id number] us Tiffanie Rebolledo NP LABORATORY Final Result [facility] [address] [place] [address] * (ABNORMAL) CBC INCLUDES DIFFERENTIAL AND PLATELET COUNT (12/03/2024 10:29 AM EST) WBC 7.3 3.8 - 10.8 Thousand/ uL [facility] RBC 4.26 3.80 - 5.10 Million/u L [facility] Hemoglobin 13.2 11.7 - 15.5 g/dL [facility] Hematocrit 40.3 35.0 - 45.0 % [facility] MCV 94.6 80.0 - 100.0 fL [facility] MCH 31.0 27.0 - 33.0 pg [facility] MCHC 32.8 32.0 - 36.0 g/dL [facility] Comment: For adults, a slight decrease in the calculated MCHC value (in the range of 30 to 32 g/dL) is most likely not clinically significant; however, it should be interpreted with caution in correlation with other red cell parameters and the patient's clinical condition. RDW 12.5 11.0 - 15.0 % [facility] PLT 187 140 - 400 Thousand/ uL [facility] MPV 13.3(H) 7.5 - 12.5 fL [facility] Neutrophils # 4628 1500 - 7800 cells/uL [facility] Lymphocytes # 1942 850 - 3900 cells/uL [facility] Monocytes # 482 200 - 950 cells/uL [facility] Eosinophils # 168 15 - 500 cells/uL [facility] Basophils # 80 0 - 200 cells/uL [facility] Neutrophils % 63.4 % [facility] Lymphocytes % 26.6 % [facility] Monocytes % 6.6 % [facility] Eosinophils % 2.3 % [facility] Basophils % 1.1 % [facility] 12/03/2024 10:2 9 AM EST 12/03/2024 11:40 PM EST Narrative Resulting Agency Comment [id number] Tiffanie Rebolledo ENVIRONMENTAL SUSTAINABILITY MANAGER LAB SAME DAY RESULT Final Re sult Performing Organization Address City/[facility] Co de Phone Number [facility] [address] [place] [address] * ERYTHROCYTE SEDIMENTATION RATE (ESR) (12/03/2024 10:29 AM EST) Sedimentation Rate [place] (ESR) 17 < OR = 30 mm/h [facility] 12/03/2024 10:2 9 AM EST 12/03/2024 11:40 PM EST Narrative Resulting Agency Comment [id number] Tiffanie Rebolledo ENVIRONMENTAL SUSTAINABILITY MANAGER LAB SAME DAY RESULT Final Re sult Performing Organization Address City/[facility] Co de Phone Number [facility] [address] [place] [address] * C-REACTIVE PROTEIN (CRP) - INFLAMMATION (12/03/2024 10:29 AM EST) C reactive protein <3.0 <8.0 mg/L [facility] 12/03/2024 10:2 9 AM EST 12/03/2024 11:40 PM EST Narrative Resulting Agency Comment [id number] Tiffanie Rebolledo NP LABORATORY Final Result [facility] [address] [place] [address] documented in this encounter Visit Diagnoses Diagnosis Open wound of middle finger Controlled type 2 diabetes mellitus with stage 1 chronic kidney disease, without long-term current use of insulin documented in this encounter Care Teams Medicaid Analyst Relationship Specialty Start Date End Date Johnny Frazier MD [address] [facility] [place] [address] PCP - General Family Medicine 04/22/22 documented as of this encounter
--- OUTSIDE RECORDS SUMMARY | 2025-01-21 18:19 | XMS_ITS | Encounter Summary ---
Author Organization [facility] Address [address] [place] [address] Care Team Providers Care Aircraft Armorer Name Role Phone Johnny Frazier MD Primary Care Provider [phone] Encounter Details Date Type Department Care Team (Late st Contact Info) Description 01/19/[address] [address] [facility], Unknown Provider Social History Tobacco Use Types Packs/Day Years [...] on file documented as of this encounter ED Notes * [facility], Unknown Provider - 01/19/2025 1:28 PM EDT ED Continuation of Care by Chase Whitman MD at 01/19/2025 1:28 PM Author: Chase Whitman MD Service: Emergency Medicine Author Type: Physician Filed: 01/19/2025 1:28 PM Date of Service: 01/19/2025 1:28 PM Status: Signed Manager Of Project Management: Chase Whitman MD (Physician) ED Continuation of Care 01/19/25 1:28 [address] Sign out [address] Dr. Ernestina Braga Md Patient care assumed at signout. No acute issues during my Emergency Department shift. [facility] Tatum Fine : 1950 CSN: [id number] Electronically signed by Interface, [facility] [place] [place] External Transcriptions at 01/19/2025 1:32 PM EDT documented in this encounter Plan of Treatment Upcoming Encounters Date Type Department Care Team (Latest Contact Info) Description 02/07/2025 9:25 AM EDT Office Visit [facility] [address] [place] [phone] Siomara Li MD [address] [place] [address] Return in about 3 months (around 03/12/2025). 05/12/2025 12:45 PM EDT CPE - Comprehensive Physical Exam [facility] [address] [place] [phone] Tiffanie Rebolledo, SOPIHE [address] [place] [address] Last CPE: Not Found 06/11/2025 11:05 AM EDT Office Visit [facility] [address] [place] [phone] Siomara Li MD [address] [place] [phone] Keep this appt and Dr Britt can [...] on filedocumented in this encounter Care Teams Aircraft Armorer Relationship Specialty Start Date End Date Johnny Frazier MD [address] [place] [address] PCP - General Family Medicine 04/22/22 documented as of this encounter
--- OUTSIDE RECORDS SUMMARY | 2025-01-21 18:19 | XMS_ITS | Encounter Summary ---
Author Organization [facility] Address [address] [place] [address] Care Team Providers Care Caustic Plant Worker Name Role Phone Johnny Izquierdo MD Primary Care Provider [phone] Johnny Frazier MD Primary Care Provider [phone] Encounter Details Date Type Department Care Team ( st Contact Info) Description 02/26/2015 Orders Only [facility] DATA MANAGEMENT SPECIALIST [address] [facility] [address] [place] [address] Melissa Mcneill CRNP [address] [place] [address] Social History Tobacco Use Types Packs/Day Years [...] Description 02/07/2025 9:25 AM EDT Office Visit [facility] [address] [place] [phone] Siomara Li MD [address] [place], [place] [phone] Return in about 3 months (around 03/12/2025). 05/12/2025 12:45 PM EDT CPE - Comprehensive Physical Exam [facility] [address] [place] [address] Tiffanie Rebolledo, HOME ENERGY CONSULTANT [address] [place] [address] Last CPE: Not Found 06/11/2025 11:05 AM EDT Office Visit [facility] [address] [place] [phone] Siomara Li MD [address] [place] [address] Keep this appt and Dr Britt can discuss at the January visit keep or move out Pending Results Name Type Priority Associated Diagnoses Date /Time CULTURE, URINE, ROUTINE Lab Routine Frequency of urination 02/26/2015 3:49 PM EDT documented as of this encounter Goals Goal Patient Goal Type Associated Problems Recent Progress Patient-Stated? Author Quit smoking / using tobacco Lifestyle No Ricarda Weeks HEMOGLOBIN A1C % < 7 Result Component 6.3(12/03/2024 10:29 AM EST) No Ricarda Weeks documented as of this encounter Procedures * Due to [place] state law, this organization might not be sharing negative HIV tests. Procedure Name Priority Date/Time Associated Diagnosis Comments CULTURE, URINE, ROUTINE Routine 02/26/2015 3:49 PM EDT Frequency of urination documented in this encounter Visit Diagnoses Diagnosis Frequency of urination Urinary frequency documented in this encounter Additional Health Concerns Infection Onset Date Last Indicated Resolved Time COVID-19 Rule-Out 09/12/2020 09/12/2020 12/07/2020 8:13 PM EST documented as of this encounter Care Teams Caustic Plant Worker Relationship Specialty Start Date End Date Johnny Izquierdo MD [address] [place] [address] PCP - General 01/14/06 04/21/22 Johnny Frazier MD [address] [facility] [place] [address] PCP - General Family Medicine 04/22/22 documented as of this encounter
--- OUTSIDE RECORDS SUMMARY | 2025-01-21 18:19 | XMS_ITS | Encounter Summary ---
Author Organization [facility] Address [address] [place] [address] Care Team Providers Care Network Operations Center Engineer Name Role Phone Johnny Frazier MD Primary Care Provider [phone] Encounter Details Date Type Department Care Team (Late st Contact Info) Description 01/06/2024 Orders Only [facility] Interventional Radiology [address] [place] [address] Adan Begum MD [address] [place], [place] [phone] Social History Tobacco Use Types Packs/Day Years Used Date Smoking Tobacco: Every Day Cigarettes 1 15 Smokeless Tobacco: Never Alcohol Use Standard Drinks/Week Comments No 0 (1 standard drink = 0.6 oz pur e alcohol) Comments No Sex and Gender Information Value Date Recorded Sex Assigned at Female 02/12/2024 3:07 PM EDT Legal Sex Female 3:31 PM EDT Gender Identity Not on file Sexual Orientation Not on file documented as of this encounter Plan of Treatment Upcoming Encounters Date Type Department Care Team (Late st Contact Info) Description 02/12/2025 Orders Only [facility] [address] [address] Siomara Li MD [address] [place] [address] Unspecified abnormal involuntary movements; Other symptoms and signs involving cognitive functions and awareness 02/12/2025 1:30 PM EDT Appointment JOELLE SCOTT [address] [place] [address] 10/30/2025 3:00 PM EST Office Visit [facility] [address] [place] [phone] Jose Luis Santos MD [address] [place] [address] documented as of this encounter Visit Diagnoses Not on filedocumented in this encounter Additional Health Concerns Infection Onset Date Last Indicated Resolved Time R/O Respiratory Virus Infection 10/28/2024 10/29/2024 1:29 AM EST R/O Influenza 10/28/2024 10/28/2024 10/29/2024 1:2 9 AM EST COVID-19 - Suspected infection 10/28/2024 10/28/2024 10/29/2024 1:29 AM EST documented as of this encounter Care Teams Network Operations Center Engineer Relationship Specialty Start Date End Date Johnny Frazier MD PCP - General Family Medicine 04/14/23 documented as of this encounter
--- OUTSIDE RECORDS SUMMARY | 2025-01-21 18:19 | XMS_ITS | Encounter Summary ---
Author Organization [facility] Address [address] [place] [address] Care Team Providers Care Grain Origination Specialist Name Role Phone Johnny Izquierdo MD Primary Care Provider [phone] Johnny Frazier MD Primary Care Provider [phone] Encounter Details Date Type Department Care Team (Late st Contact Info) Description 10/30/2014 Orders Only [facility] [address] [place] [phone] Johnny Izquierdo MD [address] [place], [place] [phone] Social History Tobacco Use Types Packs/Day Years [...] encounter Progress Notes * Katy Antoine - 10/31/2014 9:09 AM Abbi Note: The patients lab results are at a normal/stable level by the protocol guidelines. The result letterwas completed and sent to patient. documented in this encounter Plan of Treatment Upcoming Encounters Date Type Department Care Team (Latest Contact Info) Description 02/07/2025 9:25 AM EDT Office Visit [facility] [address] [place] [address] Siomara Li MD [address] [place] [phone] Return in about 3 months (around 03/12/2025). 05/12/2025 12:45 PM EDT CPE - Comprehensive Physical Exam [facility] [address] [place] [address] Tiffanie Rebolledo, [employer] [address] [place] [address] Last CPE: Not Found 06/11/2025 11:05 AM EDT Office Visit [facility] [address] [place] [address] Siomara Li MD [address] [place] [phone] Keep this appt and Dr Britt can [...] this encounter Procedures * Due to [place] Friendemic law, this organization might not be sharing negative HIV tests. Procedure Name Priority Date/Time Associated Diagnosis Comments CBC (H/H, RBC, INDICES,WBC, PLT) Routine 10/30/2014 9:09 AM EST Hypertension HEMOGLOBIN A1C Routine 10/30/2014 9:09 AM EST Impaired fasting glucose BASIC METABOLIC PANEL WITH (GFR) Routine 10/30/2014 9:09 AM EST Hypertension documented in this encounter Results * Due to [place] state law, this organization might not be sharing negative HIV tests. * HEMOGLOBIN A1C (10/30/2014 9:09 AM EST) Hemoglobin A1C 5.6 <5.7 % of total Hgb [facility] Comment: {HEMOGLOBIN A1c {[id number]) According to ADA guidelines, hemoglobin A1c <7.0% [...] diabetes This assay result is consistent with a decreased risk of diabetes. Currently, no consensus exists for use of hemoglobin A1c for diagnosis of diabetes for children. Estimated Average Glucose 122 mg/dL (calc) [facility] Comment:{MEAN PLASMA GLUCOSE {[id number]) 10/30/2014 9:09 AM EST 10/30/2014 4:23 PM EST Narrative Resulting Agency Comment [id number] us Johnny Izquierdo MD LABORATORY Final Result Performing Organization Address City/State/[facility] Co de Phone Number [facility] [address] [place] [address] * BASIC METABOLIC PANEL WITH (GFR) (10/30/2014 9:09 AM EST) Glucose 85 65 - 99 mg/dL [facility] Comment: {GLUCOSE {[id number]) ? Fasting reference interval Urea Nitrogen Blood (BUN) 15 7 - 25 mg/dL [facility] Comment:{UREA NITROGEN (BUN) {[id number]) Creatinine 0.79 0.50 - 0.99 mg/dL [facility] Comment: {CREATININE {[id number]) For patients >49 years of age, the reference limit for Creatinine is approximately 13% higher for people identified as -Central African. GFR 80 > OR = 60 mL/min/1 .73m2 [facility] Comment:{eGFR NON-AFR. AMERI CAN {[id number]) GFR () 92 > OR = 60 mL/min/1 .73m2 [facility] Comment:{eGFR AMERIC AN {[id number]) BUN/Creatinine Ratio NOT APPLICABLE 6 - 22 (calc) [facility] Comment:{BUN/CREATININE RATI O {[id number]) Sodium 143 135 - 146 mmol/L [facility] Comment:{SODIUM {[id number]) Potassium 4.3 3.5 - 5.3 mmol/L [facility] Comment:{POTASSIUM {[id number]) Chloride 106 98 - 110 mmol/L [facility] Comment:{CHLORIDE {[id number]) Carbon dioxide 29 19 - 30 mmol/L [facility] Comment:{CARBON DIOXIDE {[id number]) Calcium 9.3 8.6 - 10.4 mg/dL [facility] Comment:{CALCIUM {[id number]) 10/30/2014 9:09 AM EST 10/30/2014 4:23 PM EST Narrative [facility] - 10/30/2014 7:30 PM EST Please note that this estimated [...] needs for GFR calculation. Resulting Agency Comment [id number] us Johnny Izquierdo MD LABORATORY Final Result [facility] [address] [place] [address] * CBC (H/H, RBC, INDICES,WBC, PLT) (10/30/2014 9:09 AM EST) WBC 6.4 3.8 - 10.8 Thousand/u L [facility] Comment:{WHITE BLOOD CELL CO UNT {[id number]) RBC 4.87 3.80 - 5.10 Million/uL [facility] Comment:{RED BLOOD CELL COUN T {[id number]) Hemoglobin 14.9 11.7 - 15.5 g/dL [facility] Comment:{HEMOGLOBIN {[id number]) Hematocrit 44.0 35.0 - 45.0 % [facility] Comment:{HEMATOCRIT {[id number]) MCV 90.2 80.0 - 100.0 fL [facility] Comment:{MCV {[id number]) MCH 30.5 27.0 - 33.0 pg [facility] Comment:{MCH {[id number]) MCHC 33.8 32.0 - 36.0 g/dL [facility] Comment:{MCHC {[id number]) RDW 12.9 11.0 - 15.0 % [facility] Comment:{RDW {[id number]) PLT 145 140 - 400 Thousand/u L [facility] Comment:{PLATELET COUNT {[id number]) 10/30/2014 9:09 AM EST 10/30/2014 4:23 PM EST Narrative Resulting Agency Comment [id number] us Johnny Izquierdo MD LAB SAME DAY RESULT Final Res ult [facility] [address] [place] [address] documented in this encounter Visit Diagnoses Diagnosis Hypertension Unspecified essential hypertension Impaired fasting glucose documented in this encounter Additional Health Concerns Infection Onset Date Last Indicated Resolved Time COVID-19 Rule-Out 09/12/2020 09/12/2020 12/07/2020 8:13 PM EST documented as of this encounter Care Teams Grain Origination Specialist Relationship Specialty Start Date End Date Johnny Izquierdo MD [address] [place] [address] PCP - General 01/14/06 04/21/22 Johnny Frazier MD [address] [place] [address] PCP - General Family Medicine 04/22/22 documented as of this encounter
--- OUTSIDE RECORDS SUMMARY | 2025-01-21 18:19 | XMS_ITS | Encounter Summary ---
Author Organization [facility] Address [address] [place] [address] Care Team Providers Care Air Reduction Equipment Operator Name Role Phone Johnny Izquierdo MD Primary Care Provider [phone] Johnny Frazier MD Primary Care Provider [phone] Reason for Visit * Reason Comments E-prescribing Refill Request Encounter Details Date Type Department Care Team (Late st Contact Info) Description 01/17/2021 Refill [facility] [address] [place] [phone] Tiffanie Rebolledo, HOSPITAL STAFF PHARMACIST [address] [place] [address] E-prescribing Refill Request Social History Tobacco Use [...] have Coronavirus / COVID-19? No / Unsure 01/18/2021 11:28 AM EDT documented as of this encounter Miscellaneous Notes * Telephone Encounter - Chasity Perera CMA - 01/18/2021 9:58 AM EDT Any special requests or concerns? none Faxed/E-prescribed medication renewal request(s) for Tatum Fine 70 y.o. female received from pharmacy. Verified and Confirmed pharmacy for patient. Last CPE with this specialty: 05/29/2017 Last OV with this specialty: 12/03/2020 Next OV: Future Appointments Date Time Provider Department Phone 01/18/21 11:40 AM Johnny Izquierdo MD [facility] [phone] 01/18/21 1:00 PM Kashif Mccullough DPM [facility] [phone] 02/22/21 1:30 PM [facility] MAMMOGRAP[facility] [id number] [facility] [phone] 03/08/21 11:[address] LDN CDE [facility] [phone] 04/07/21 12:45 PM Siomara Li MD [facility] [phone] 04/12/21 10:30 AM Deangelo Lindsay, KEMAR [facility] [phone] Pertinent lab results: Lab Results Component Value Date CHOLESTEROL 160 03/20/2020 HDL 28 (L) 03/20/2020 LDL 101 (H) 03/20/2020 TRIGLYCERIDE 193 (H) 03/20/2020 An open order for Lipids exists. Lipid testing recommended a minimum of yearly for chronic therapy in diabetics, at provider discretion otherwise based on need to monitor compliance or clinical outcome. Based on the diagnosis of diabetes and lab testing intervals, 3 month supply suggested for most lipid lowering medications. Allergies: Patient has no known allergies. BP Readings from Last 1 Encounters: 12/03/20 134/84 Patient Active Problem List Diagnosis Date Noted ??? Diabetic polyneuropathy associated with type 2 diabetes mellitus (HCC) 10/20/2020 ??? Mild intermittent asthma 05/08/2019 Refer to office visit note 09/02/16, as well as list of visit diagnoses for that date: ??Assessment/ Plan: 2. Asthma: she uses QVAR on a daily basis, she needs refills for this so I am going to give her Flovent since this seems to be covered by her insurance. She is going to use nystatin swish and spit for oral thrush, advised to use spacer ??? COPD exacerbation (HCC) 08/08/2018 ??? Pulmonary nodules 09/19/2017 3 mm upper and lower lobe pulmonary nodules on CT Will repeat CT 2mm granuloma only Will continue lung cancer screening ct CT stable 09/2018 Schedule annual screen at next ov ??? Pap smear for cervical cancer screening 11/28/2016 Medical Hx: POSITIVE FOR:, abnormal pap smear, (pt states repeats only) Pap smears from 2004 to present have been negative. 11/24/2016 pap = Neg & hpv = not detected. Plan per provider progress note: If this pap is negative, can stop screening paps. ??? Diabetes ([facility]) 09/19/2016 Type II, controlled on Lantus 12 units h.s. Reduced to 8 units at night With weight loss A1C down to 5.7 on metformin 500mg Insulin stopped ??? Cigarette smoker 07/19/2016 ??? Lumbar radicular pain 05/26/2016 ??? Post-traumatic osteoarthritis of left knee [M17.32] 05/26/2016 ??? Memory loss 03/11/2016 ??? Abnormal involuntary movements 03/11/2016 ??? Bilateral back pain - PT 02/16/2016 ??? Bipolar affective disorder in remission ([facility]) 03/26/2015 On lamictal 20mg ??? Essential hypertension 03/26/2015 Lisinopril 5 ??? Overactive bladder 07/16/2013 She is status post?pelvic reconstructive surgery 02/08/17 Anterior colporrhaphy, posterior colporrhaphy, perineorrhaphy, cystoscopy. She also has a history of refractory overactive bladder status post InterStim implant - doing well. She is also status post trial of different anticholinergic medications and Myrbetriq in the past. ?? She is also completed bladder instillations ??3 with some improvement in her bladder pain symptoms.Elmiron 100mg TID has worked well in the past. 06/07/18 panniculectomy which has relieved bladder ain sxms. 03/05/19 currently doing well. Stopped Elmiron 11/10 ran out of refills. No pain. Voiding normally. F/u in 1 year or PRN. ??? Chest pain 01/21/2011 01/21/11 hospitalized at [facility]. Had cardiac catheterization which was normal, [...] ANXIETY STATE, NEUROTIC 04/06/2007 Buspirone and clonzapam Not taking now Current Outpatient Medications on File Prior to Visit Medication Sig Dispense Refill ??? Haloperidol Decanoate (HALDOL DECANOATE) 50 MG/ML injection ??? ALBUTEROL SULFATE (ProAir HFA) 108 (90 Base) MCG/ACT inhaler Inhale two puffs - EVERY 4 TO 6 HOURS NEEDED FOR WHEEZING OR SHORTNESS OF BREATH 8.5 g 3 ??? Beclomethasone Dipropionate (Qvar) 80 MCG/ACT inhaler Use 1-2 puffs twice a day 1 Inhaler 11 ??? QUEtiapine Fumarate (SEROquel) 100 MG tablet Take 100 mg by mouth every night ??? Mirabegron ER 50 MG TABLET SR 24 HR Take one tablet (50 mg total) by mouth 1 (one) time each day 30 tablet 11 ??? Haloperidol Decanoate (HALDOL DECANOATE) 100 MG/ML injection INJECT 0.5ML INTO THE MUSCLE EVERY2 WEEKS STARTING 10-05-2020 ??? Atorvastatin Calcium (LIPITOR) 20 MG tablet Take one tablet (20 mg total) by mouth 1 (one) timeeach day 30 tablet 3 ??? FLUTICASONE PROPIONATE, NASAL, (FLONASE) 50 MCG/ACT nasal spray Administer two sprays into eachnostril 1 (one) time each day 1 Inhaler 11 ??? Filter Manson 20G X 1-1/2 Misc Use to draw up Haldol from ampule and change needle to administer 2 each 6 ??? SYRINGE 3CC/25GX1 25G X 1 3 ML Misc Use to inject Haldol 0.5 ml q 2 weeks 2 Syringe 11 ??? Lamotrigine (LaMICtal) 200 MG tablet Take one tablet (200 mg total) by mouth 1 (one) time each day 90 tablet 3 ??? MetFORMIN HCl (GLUCOPHAGE-XR) 500 MG 24 hr tablet Take 3 tablets daily po 270 tablet 3 ??? Lisinopril (PRINIVIL,ZESTRIL) 5 MG tablet Take one tablet (5 mg total) by mouth 1 (one) time each day 90 tablet 3 ??? Levothyroxine Sodium (SYNTHROID, LEVOTHROID) 137 MCG tablet Take one hundred thirty seven mcg by mouth 1 (one) time each day 90 tablet 3 ??? Omeprazole (PriLOSEC OTC) 20 MG EC tablet Take one tablet (20 mg total) by mouth 1 (one) time each day 42 tablet 11 ??? Polyethylene Glycol 3350 (MIRALAX) Powder 1 capful daily ??? ASPIRIN (LOW-DOSE ASPIRIN) 81 MG OR TABS 2 TABLET DAILY documented in this encounter Plan of Treatment Upcoming Encounters Date Type Department Care Team (Latest Contact Info) Description 02/07/2025 9:25 AM EDT Office Visit [facility] [address] [place] [phone] Siomara Li MD [address] [place] [phone] Return in about 3 months (around 03/12/2025). 05/12/2025 12:45 PM EDT CPE - Comprehensive Physical Exam [facility] [address] [place] [phone] Tiffanie Rebolledo, HOSPITAL STAFF PHARMACIST [address] [place] [address] Last CPE: Not Found 06/11/2025 11:05 AM EDT Office Visit [facility] [address] [place] [phone] Siomara Li MD [address] [place] [address] Keep this appt and Dr Britt can [...] on filedocumented in this encounter Care Teams Air Reduction Equipment Operator Relationship Specialty Start Date End Date Johnny Izquierdo MD [address] [place] [address] PCP - General 01/14/06 04/21/22 Johnny Frazier MD [address] [place] [address] PCP - General Family Medicine 04/22/22 documented as of this encounter
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
--- OUTSIDE RECORDS SUMMARY | 2025-01-21 18:19 | XMS_ITS | Encounter Summary ---
Author Organization [facility] Address [address] [place] [address] Care Team Providers Care Orthodontic Technician Name Role Phone Johnny Frazier MD Primary Care Provider [phone] Reason for Visit * Reason Comments Results EEG Encounter Details Date Type Department Care Team ([facility] Contact Info) Description 12/25/2024 Telephone [facility] [address] [place] [phone] Siomara Li MD [address] [place] [address] Results (EEG) Social History Tobacco Use Types Packs/Day Years [...] encounter Miscellaneous Notes * Telephone Encounter - Sandra Nino RN - 01/20/2025 3:50 PM EDT Called and sw pt's daughter- pt is admitted and filed Sec. 12- waiting for [facility] placement. Aware of results- fyi to provider. Unsure if they will be moving forward with MRI. * Telephone Encounter - Siomara Li MD - 01/20/2025 3:34 PM EDT EEG is normal. Should do the MRI brain scan. * Telephone Encounter - Tanika Hood CMA - 01/20/2025 9:57 AM EDT Please review chart * Telephone Encounter - Abby Carlton - 12/26/2024 3:23 PM EST Tarah called back- aware of appt * Telephone Encounter - Abby Carlton - 12/25/2024 11:20 AM EST LMOM for dtr Tarah -spoke with Lorrie at [facility]-pt no showed EEG today-rescheduled to 01/13/25 at 1:30pm at [facility] documented in this encounter Plan of Treatment Upcoming Encounters Date Type Department Care Team (Latest Contact Info) Description 02/07/2025 9:25 AM EDT Office Visit [facility] [address] [place] [phone] Siomara Li MD [address] [place] [address] Return in about 3 months (around 03/12/2025). 05/12/2025 12:45 PM EDT CPE - Comprehensive Physical Exam [facility] [address] [place] [phone] Tiffanie Rebolledo, SOPHIE [address] [place] [address] Last CPE: Not Found 06/11/2025 11:05 AM EDT Office Visit [facility] [address] [place] [phone] Siomara Li MD [address] [place] [address] Keep this appt and Dr Britt can [...] on filedocumented in this encounter Care Teams Orthodontic Technician Relationship Specialty Start Date End Date Johnny Frazier MD [address] [place] [address] PCP - General Family Medicine 04/22/22 documented as of this encounter
--- OUTSIDE RECORDS SUMMARY | 2025-01-21 18:19 | XMS_ITS | Encounter Summary ---
Author Organization [facility] Address [address] [place] [address] Care Team Providers Care Pull Socket Assembler Name Role Phone Johnny Izquierdo MD Primary Care Provider [phone] Johnny Frazier MD Primary Care Provider [phone] Encounter Details Date Type Department Care Team (Late st Contact Info) Description 04/13/2015 Orders Only [facility] [address] [place] [phone] Arabella Solares PA Social History Tobacco Use Types Packs/Day Years [...] as of this encounter Progress Notes * Arabella Solares PA - 04/16/2015 11:10 AM EDTQuick Note: Reviewed. See TMS. ANNABELLE documented in this encounter Plan of Treatment Upcoming Encounters Date Type Department Care Team (Latest Contact Info) Description 02/07/2025 9:25 AM EDT Office Visit [facility] [address] [place] [phone] Siomara Li MD [address] [place] [address] Return in about 3 months (around 03/12/2025). 05/12/2025 12:45 PM EDT CPE - Comprehensive Physical Exam [facility] [address] [place] [phone] Tiffanie Rebolledo, SUPPORT DIRECTOR [address] [place] [address] Last CPE: Not Found 06/11/2025 11:05 AM EDT Office Visit [facility] [address] [place] [phone] Siomara Li MD [address] [place] [address] Keep this appt and Dr Britt can [...] of this encounter Procedures * Due to [place] state law, this organization might not be sharing negative HIV tests. Procedure Name Priority Date/Time Associated Diagnosis Comments HEPATIC FUNCTION PANEL (ALT,AST,ALK PH,BILI'S,TP,ALB) Routine 04/13/2015 8:30 AM EDT Fatty liver documented in this encounter Results * Due to [place] [employer] law, this organization might not be sharing negative HIV tests. * HEPATIC FUNCTION PANEL (ALT,AST,ALK PH,BILI'S,TP,ALB) (04/13/2015 8:30 AM EDT) Protein Total (Serum) 7.4 6.1 - 8.1 g/dL [facility] Comment:{PROTEIN, TOTAL {[id number]) Albumin 4.4 3.6 - 5.1 g/dL [facility] Comment:{ALBUMIN {[id number]) Globulin 3.0 1.9 - 3.7 g/dL (calc) [facility] Comment:{GLOBULIN {[id number]) Albumin/Globulin 1.5 1.0 - 2.5 (calc) [facility] Comment:{ALBUMIN/GLOBULIN RA KIKO {[id number]) Bilirubin Total 0.5 0.2 - 1.2 mg/dL [facility] Comment:{BILIRUBIN, TOTAL {[id number]) Bilirubin Direct 0.1 < OR = 0.2 mg/dL [facility] Comment:{BILIRUBIN, DIRECT { [id number]) Bilirubin Indirect 0.4 0.2 - 1.2 mg/dL (calc) [facility] Comment:{BILIRUBIN, INDIRECT {[id number]) Alkaline phosphatase 69 33 - 130 U/L [facility] Comment:{ALKALINE PHOSPHATAS E {[id number]) AST (SGOT) 15 10 - 35 U/L [facility] Comment:{AST {[id number]) ALT (SGPT) 12 6 - 29 U/L [facility] Comment:{ALT {[id number]) 04/13/2015 8:30 AM EDT 04/13/2015 1:38 PM EDT Narrative Resulting Agency Comment [id number] [facility] Final Result [facility] [address] [place] [address] documented in this encounter Visit Diagnoses Diagnosis Fatty liver Other chronic nonalcoholic liver disease documented in this encounter Additional Health Concerns Infection Onset Date Last Indicated Resolved Time COVID-19 Rule-Out 09/12/2020 09/12/2020 12/07/2020 8:13 PM EST documented as of this encounter Care Teams Pull Socket Assembler Relationship Specialty Start Date End Date Johnny Izquierdo MD [address] [place] [address] PCP - General 01/14/06 04/21/22 Johnny Frazier MD [address] [place] [address] PCP - General Family Medicine 04/22/22 documented as of this encounter
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
--- OUTSIDE RECORDS SUMMARY | 2025-01-21 18:19 | XMS_ITS | Encounter Summary ---
Author Organization [facility] Address [address] [place] [address] Care Team Providers Care Chute Builder Name Role Phone Johnny Izquierdo MD Primary Care Provider [phone] Johnny Frazier MD Primary Care Provider [phone] Encounter Details Date Type Department Care Team (Late st Contact Info) Description 01/13/2011 Orders Only [facility] [address] [place] [phone] Johnny Izquierdo MD [address] [place] [address] Social History Tobacco Use Types Packs/Day Years [...] Description 02/07/2025 9:25 AM EDT Office Visit [facility] [address] [place] [phone] Siomara Li MD [address] [place], [place] [phone] Return in about 3 months (around 03/12/2025). 05/12/2025 12:45 PM EDT CPE - Comprehensive Physical Exam [facility] [address] [place] [phone] Tiffanie Rebolledo NP [address] [place] [address] Last CPE: Not Found 06/11/2025 11:05 AM EDT Office Visit [facility] [address] [place] [phone] Siomara Li MD [address] [place] [address] Keep this appt and Dr Britt can discuss at the January visit keep or move out documented as of this encounter Visit Diagnoses Diagnosis Bipolar affective disorder, depressed (HCC) Bipolar I disorder, most recent episode (or current) depressed, unspecified Mood Disorder (F39) documented in this encounter Additional Health Concerns Infection Onset Date Last Indicated Resolved Time COVID-19 Rule-Out 09/12/2020 09/12/2020 12/07/2020 8:13 PM EST documented as of this encounter Care Teams Chute Builder Relationship Specialty Start Date End Date Johnny Izquierdo MD [address] [place] [address] PCP - General 01/14/06 04/21/22 Johnny Frazier MD [address] [place] [address] PCP - General Family Medicine 04/22/22 documented as of this encounter
--- OUTSIDE RECORDS SUMMARY | 2025-01-21 18:19 | XMS_ITS | Encounter Summary ---
Author Organization [facility] Address [address] [place] [address] Care Team Providers Care Shore Man Name Role Phone Johnny Izquierdo MD Primary Care Provider [phone] Johnny Frazier MD Primary Care Provider Encounter Details Date Type Department Care Team (Late st Contact Info) Description 04/13/2015 Orders Only [facility] [address] [place] [phone] Johnny Izquierdo MD [address] [place], [place] [phone] Social History Tobacco Use Types Packs/Day Years [...] encounter Progress Notes * Katy Antoine - 04/14/2015 12:39 PM EDTQuick Note: The patients lab results are at an abnormal level by the protocol guidelines. Please review. No Letter was generated. Patient has no upcoming appointment until July documented in this encounter Plan of Treatment Upcoming Encounters Date Type Department Care Team (Latest Contact Info) Description 02/07/2025 9:25 AM EDT Office Visit [facility] [address] [place] [address] Siomara Li MD [address] [place] [address] Return in about 3 months (around 03/12/2025). 05/12/2025 12:45 PM EDT CPE - Comprehensive Physical Exam [facility] [address] [place] [address] Tiffanie Rebolledo, HOBBING PRESS OPERATOR [address] [place] [address] Last CPE: Not Found 06/11/2025 11:05 AM EDT Office Visit [facility] [address] [place] [address] Siomara Li MD [address] [place] [address] Keep this appt and Dr Britt can [...] of this encounter Procedures * Due to [place] state law, this organization might not be sharing negative HIV tests. Procedure Name Priority Date/Time Associated Diagnosis Comments CBC (H/H, RBC, INDICES,WBC, PLT) Routine 04/13/2015 8:30 AM EDT Benign essential HTN THYROID CASCADING REFLEX Routine 04/13/2015 8:30 AM EDT Hypothyroidism (acquired) HEMOGLOBIN A1C Routine 04/13/2015 8:30 AM EDT Diabetes mellitus type II, controlled ALBUMIN (MICROALBUMIN), RANDOM URINE, WITH CREATININE Routine 04/13/2015 8:30 AM EDT Diabetes mellitus type II, controlled LIPID PANEL WITH REFLEX TO DIRECT LDL Routine 04/13/2015 8:30 AM EDT Diabetes mellitus type II, controlled BASIC METABOLIC PANEL WITH (GFR) Routine 04/13/2015 8:30 AM EDT Diabetes mellitus type II, controlled documented in this encounter Results * Due to [place] state law, this organization might not be sharing negative HIV tests. * (ABNORMAL) THYROID CASCADING REFLEX (04/13/2015 8:30 AM EDT) TSH 0.37(L) 0.40 - 4.50 mIU/L [facility] Comment:{TSH {[id number]) FT4 1.4 0.8 - 1.8 ng/dL [facility] Comment:{T4, FREE {[id number]) Free T3 3.0 2.3 - 4.2 pg/mL [facility] Comment:{T3, FREE {[id number]) INTERPRETATION SEE NOTE [facility] Comment: {INTERPRETATION {[id number]) TSH result is low, FT4 is normal, FT3 normal or low. Consistent with Subclinical Hyperthyroidism, Secondary Hypothyroidism due to pituitary or hypothalamic disease or Nonthyroidal illness (Euthyroid sick Syndrome). Interference from heterophilic antibodies (more common) or autoantibody (less common) should be considered when the TSH value does not fit the clinical picture. TSH with HAMA Treatment (test code 18253) or TSH Antibody (test code 32619) may help identify such interferences. 04/13/2015 8:30 AM EDT 04/13/2015 1:38 PM EDT Narrative Resulting Agency Comment [id number] Johnny Izquierdo MD LABORATORY Final Result [facility] [address] [place] [address] * CBC (H/H, RBC, INDICES,WBC, PLT) (04/13/2015 8:30 AM EDT) WBC 5.4 3.8 - 10.8 Thousand/u L [facility] Comment:{WHITE BLOOD CELL CO UNT {[id number]) RBC 4.66 3.80 - 5.10 Million/uL [facility] Comment:{RED BLOOD CELL COUN T {[id number]) Hemoglobin 14.2 11.7 - 15.5 g/dL [facility] Comment:{HEMOGLOBIN {[id number]) Hematocrit 42.7 35.0 - 45.0 % [facility] Comment:{HEMATOCRIT {[id number]) MCV 91.6 80.0 - 100.0 fL [facility] Comment:{MCV {[id number]) MCH 30.4 27.0 - 33.0 pg [facility] Comment:{MCH {[id number]) MCHC 33.2 32.0 - 36.0 g/dL [facility] Comment:{MCHC {[id number]) RDW 13.2 11.0 - 15.0 % [facility] Comment:{RDW {[id number]) PLT 145 140 - 400 Thousand/u L [facility] Comment:{PLATELET COUNT {[id number]) 04/13/2015 8:30 AM EDT 04/13/2015 1:38 PM EDT Narrative Resulting Agency Comment [id number] us Johnny Izquierdo MD LAB SAME DAY RESULT Final Res ult Performing Organization Address City/[facility]/ZIP Co de Phone Number [facility] [address] [place] [address] * BASIC METABOLIC PANEL WITH (GFR) (04/13/2015 8:30 AM EDT) Pathologist [facility] Glucose 86 65 - 99 mg/dL [facility] Comment: {GLUCOSE {[id number]) ? Fasting reference interval Urea Nitrogen Blood (BUN) 14 7 - 25 mg/dL [facility] Comment:{UREA NITROGEN (BUN) {[id number]) Creatinine 0.83 0.50 - 0.99 mg/dL [facility] Comment: {CREATININE {[id number]) For patients >49 years of age, the reference limit for Creatinine is approximately 13% higher for people identified as -[place]. GFR 75 > OR = 60 mL/min/1 .73m2 [facility] Comment:{eGFR NON-AFR. AMERI CAN {[id number]) GFR () 87 > OR = 60 mL/min/1 .73m2 [facility] Comment:{eGFR AMERIC AN {[id number]) BUN/Creatinine Ratio NOT APPLICABLE (calc) [facility] Comment:{BUN/CREATININE RATI O {[id number]) Sodium 139 135 - 146 mmol/L [facility] Comment:{SODIUM {[id number]) Potassium 4.6 3.5 - 5.3 mmol/L [facility] Comment:{POTASSIUM {[id number]) Chloride 102 98 - 110 mmol/L [facility] Comment:{CHLORIDE {[id number]) Carbon dioxide 26 19 - 30 mmol/L [facility] Comment:{CARBON DIOXIDE {[id number]) Calcium 9.3 8.6 - 10.4 mg/dL [facility] Comment:{CALCIUM {[id number]) 04/13/2015 8:30 AM EDT 04/13/2015 1:38 PM EDT Narrative [facility] - 04/13/2015 8:21 PM EDT Please note that this estimated [...] needs for GFR calculation. Resulting Agency Comment [id number] us Johnny Izquierdo MD LABORATORY Final Result [facility] [address] [place] [address] * ALBUMIN (MICROALBUMIN), RANDOM URINE, WITH CREATININE (04/13/2015 8:30 AM EDT) Creatinine (Urine) 82 20 - 320 mg/dL [facility] Comment:{CREATININE, RANDOM URINE {[id number]) Albumin (Urine) 0.3 mg/dL [facility] Comment: {MICROALBUMIN {[id number]) Reference Range Not established Albumin/Creatinine (Urine) 4 <30 mcg/mg creat [facility] Comment: {MICROALBUMIN/CREATININE RATIO, RANDOM URINE {[id number]) The ADA defines abnormalities in albumin excretion as follows: Category ? Result (mcg/mg creatinine) Normal ?<30 Microalbuminuria ? 30-299 Clinical albuminuria ?? > OR = 300 The ADA recommends that at least two of three specimens collected within a 3-6 month period be abnormal before considering a patient to be within a diagnostic category. 04/13/2015 8:30 AM EDT 04/13/2015 1:38 PM EDT Narrative Resulting Agency Comment [id number] us Johnny Izquierdo MD LABORATORY Final Result [facility] [address] [place] [address] * (ABNORMAL) LIPID PANEL WITH REFLEX TO DIRECT LDL (04/13/2015 8:30 AM EDT) Cholesterol 152 125 - 200 mg/dL [facility] Comment:{CHOLESTEROL, TOTAL {[id number]) HDL Cholesterol 25(L) > OR = 46 mg/dL [facility] Comment:{HDL CHOLESTEROL {[id number]) Triglyceride 211(H) <150 mg/dL [facility] Comment:{TRIGLYCERIDES {[id number]) LDL Cholesterol 85 <130 mg/dL (calc) [facility] Comment: {LDL-CHOLESTEROL {[id number]) Desirable range <100 mg/dL for patients with CHD or diabetes and <70 mg/dL for diabetic patients with known heart disease. CHOL/HDL Ratio 6.1(H) < OR = 5.0 (calc) [facility] Comment:{CHOL/HDLC RATIO {[id number]) Cholesterol Non-HDL 127 mg/dL (calc) [facility] Comment: {NON HDL CHOLESTEROL {[id number]) Target for non-HDL cholesterol is 30 mg/dL higher than LDL cholesterol target. 04/13/2015 8:30 AM EDT 04/13/2015 1:38 PM EDT Narrative Resulting Agency Comment [id number] Johnny Izquierdo MD LABORATORY Final Result [facility] [address] [place] [address] * (ABNORMAL) HEMOGLOBIN A1C (04/13/2015 8:30 AM EDT) Hemoglobin A1C 6.0(H) <5.7 % of total Hgb [facility] Comment: {HEMOGLOBIN A1c {[id number]) According to ADA guidelines, hemoglobin A1c <7.0% [...] children. Estimated Average Glucose 136 mg/dL (calc) [facility] Comment:{MEAN PLASMA GLUCOSE {[id number]) 04/13/2015 8:30 AM EDT 04/13/2015 1:38 PM EDT Narrative Resulting Agency Comment [id number] us Johnny Izquierdo MD LABORATORY Final Result [facility] [address] [place] [address] documented in this encounter Visit Diagnoses Diagnosis Diabetes mellitus type II, controlled (HCC) Type II or unspecified type diabetes mellitus without mention of complication, not stated as uncontrolled Benign essential HTN Essential hypertension, benign Hypothyroidism (acquired) Unspecified hypothyroidism documented in this encounter Additional Health Concerns Infection Onset Date Last Indicated Resolved Time COVID-19 Rule-Out 09/12/2020 09/12/2020 12/07/2020 8:13 PM EST documented as of this encounter Care Teams Shore Man Relationship Specialty Start Date End Date Johnny Izquierdo MD [address] [place] [address] PCP - General 01/14/06 04/21/22 Johnny Frazier MD [address] [place] [address] PCP - General Family Medicine 04/22/22 documented as of this encounter
--- OUTSIDE RECORDS SUMMARY | 2025-01-21 18:19 | XMS_ITS | Encounter Summary ---
Author Organization [facility] Address [address] [place] [address] Care Team Providers Care Dredge Boat Engineer Name Role Phone Johnny Izquierdo MD Primary Care Provider [phone] Johnny Frazier MD Primary Care Provider [phone] Encounter Details Date Type Department Care Team (Late st Contact Info) Description 11/04/2009 Orders Only [facility] [address] [place] [phone] Johnny Izquierdo MD [address] [place], [place] [phone] Social History Tobacco Use Types Packs/Day Years [...] this encounter Progress Notes * Lianna Meléndez NP - 11/05/2009 4:05 PM ESTQuick Note: Letter mailed with diet info documented in this encounter Plan of Treatment Upcoming Encounters Date Type Department Care Team (Latest Contact Info) Description 02/07/2025 9:25 AM EDT Office Visit [facility] [address] [place] [address] Siomara Li MD [address] [place] [address] Return in about 3 months (around 03/12/2025). 05/12/2025 12:45 PM EDT CPE - Comprehensive Physical Exam [facility] [address] [place] [address] Tiffanie Rebolledo, CREDENTIALING ASSISTANT [address] [place] [address] Last CPE: Not Found 06/11/2025 11:05 AM EDT Office Visit [facility] [address] [place] [address] Siomara Li MD [address] [place] [address] Keep this appt and Dr Britt can discuss at the January visit keep or move out documented as of this encounter Procedures * Due to [place] [employer] law, this organization might not be sharing negative HIV tests. Procedure Name Priority Date/Time Associated Diagnosis Comments BASIC METABOLIC PANEL W/GLOMERULAR FILTRATION RATE (EGFR) Routine 11/04/2009 Diabetes HEMOGLOBIN A1C Routine 11/04/2009 Diabetes LIPID PANEL + CARDIAC RISK WITH REFLEX TO LDL DIRECT Routine 11/04/2009 Hyperlipidemia Hyperlipidemia MICROALBUMIN (RANDOM URINE) Routine 11/04/2009 Diabetes ALANINE AMINOTRANSFERASE (ALT), SERUM Routine 11/04/2009 Hyperlipidemia Hyperlipidemia ASPARTATE AMINOTRANSFERASE (AST), SERUM Routine 11/04/2009 Hyperlipidemia Hyperlipidemia THYROID CASCADE Routine 11/04/2009 Hyperlipidemia Hyperlipidemia documented in this encounter Results * Due to [place] state law, this organization might not be sharing negative HIV tests. * THYROID CASCADE (11/04/2009) TSH, THYROTROPIN 3.84 0.40 - 4.50 UIU/ML [facility] 11/04/2009 11/04/2009 6:0 4 PM EST Johnny Izquierdo MD LABORATORY Final Result Performing Organization Address [facility] de Phone Number [facility] [address] [place] [address] * (ABNORMAL) LIPID PANEL + CARDIAC RISK WITH REFLEX TO LDL DIRECT (11/04/2009) CHOLESTEROL, TOTAL 180 125 - 200 MG/DL [facility] TRIGLYCERIDES 144 30 - 149 MG/DL [facility] HDL-CHOLESTEROL 31(L) 40 - 77 MG/DL [facility] LDL-CHOLESTEROL 120 62 - 130 MG/DL [facility] Comment: RISK CATEGORY: ??LDL-CHOLESTEROL GOAL CHD AND CHD RISK EQUIVALENTS: ??<100 MULTIPLE (2+) FACTORS: ??<130 ZERO TO ONE RISK FACTOR: ??<160 CHD RELATIVE RISK RATIO (TOTAL/HDL) 5.81(H) 0.0 - 5.0 [facility] Comment:(1.6 X AVERAGE) 11/04/2009 11/04/2009 6:0 4 PM EST us Johnny Izquierdo MD LABORATORY Final Result Performing Organization Address [facility] de Phone Number [facility] [address] [place] [address] * ASPARTATE AMINOTRANSFERASE (AST), SERUM (11/04/2009) AST (SGOT) 13 10 - 35 U/L [facility] 11/04/2009 11/04/2009 6:0 4 PM EST us Johnny Izquierdo MD LAB SAME DAY RESULT Final Res ult Performing Organization Address [facility] Co de Phone Number [facility] [address] [place] [address] * ALANINE AMINOTRANSFERASE (ALT), SERUM (11/04/2009) ALT (SGPT) 10 6 - 40 U/L [facility] 11/04/2009 11/04/2009 6:0 4 PM EST us Johnny Izquierdo MD LAB SAME DAY RESULT Final Res ult Performing Organization Address [facility] Co de Phone Number [facility] [address] [place] [address] * MICROALBUMIN (RANDOM URINE) (11/04/2009) CREATININE (URINE) 90 20 - 320 MG/DL [facility] Microalbumin (Urine) < 5 NOT ESTABLISHED [facility] MICROALBUMIN/CR EAT RATIO (URINE) SEE TEXT 0 - 29 [facility] Comment: UNITS: MCG/MG CREATININE MICROALBUMIN <5, CANNOT CALCULATE RATIO 11/04/2009 11/04/2009 6:0 4 PM EST us Johnny Izquierdo MD LABORATORY Final Result Performing Organization Address [facility] de Phone Number [facility] [address] [place] [address] * (ABNORMAL) HEMOGLOBIN A1C (11/04/2009) Hemoglobin A1C 6.1(H) 0.0 - 5.9 % [facility] GLUCOSE MEAN VALUE 140 MG/DL [facility] 11/04/2009 11/04/2009 6:0 4 PM EST us Johnny Izquierdo MD LABORATORY Final Result Performing Organization Address [facility] de Phone Number [facility] [address] [place] [address] * BASIC METABOLIC PANEL W/GLOMERULAR FILTRATION RATE (EGFR) (11/04/2009) CALCIUM 9.3 8.6 - 10.2 MG/DL [facility] BUN 10 7 - 25 MG/DL [facility] CREATININE 0.70 0.60 - 1.10 MG/DL [facility] Glucose 76 65 - 99 MG/DL [facility] SODIUM 143 135 - 146 MMOL/L [facility] POTASSIUM 4.3 3.5 - 5.3 MMOL/L [facility] CHLORIDE 107 98 - 110 MMOL/L [facility] CARBON DIOXIDE 26 21 - 33 MMOL/L [facility] GFR > 60 60 AND ABOVE [facility] Comment:UNITS: ML/MIN/1.73 S Q METERS EGFR > 60 60 AND ABOVE [facility] Comment:UNITS: ML/MIN/1.73 S Q METERS 11/04/2009 11/04/2009 6:0 4 PM EST Narrative [facility] - 11/04/2009 8:59 PM EST Please note that this estimated [...] with more precise needs for GFR calculation. Johnny Izquierdo MD LABORATORY Final Result [facility] [address] [place] [address] documented in this encounter Visit Diagnoses Diagnosis Diabetes (HCC) Type II or unspecified type diabetes mellitus without mention of complication, not stated as uncontrolled Hyperlipidemia Other and unspecified hyperlipidemia documented in this encounter Additional Health Concerns Infection Onset Date Last Indicated Resolved Time COVID-19 Rule-Out 09/12/2020 09/12/2020 12/07/2020 8:13 PM EST documented as of this encounter Care Teams Dredge Boat Engineer Relationship Specialty Start Date End Date Johnny Izquierdo MD [address] [place] [address] PCP - General 01/14/06 04/21/22 Johnny Frazier MD [address] [place] [address] PCP - General Family Medicine 04/22/22 documented as of this encounter
--- OUTSIDE RECORDS SUMMARY | 2025-01-21 18:19 | XMS_ITS | Encounter Summary ---
Author Organization [facility] Address [address] [place] [address] Care Team Providers Care Group Counselor Name Role Phone Johnny Izquierdo MD Primary Care Provider [phone] Johnny Frazier MD Primary Care Provider [phone] Encounter Details Date Type Department Care Team (Late st Contact Info) Description 12/27/2010 Orders Only [facility] [address] [place] [phone] Johnny Izquierdo MD [address] [place], [place] [phone] Social History Tobacco Use Types Packs/Day Years [...] Progress Notes * Lianna Meléndez NP - 12/30/2010 10:16 AM ESTQuick Note: Seen 12/28/10 by pcp * Lianna Meléndez NP - 12/30/2010 10:14 AM ESTQuick Note: Letter mailed, diet info * Katy Antoine - 12/29/2010 8:28 AM ESTQuick Note: The patients lab results are at a abnormal level by the protocol guidelines. Please review and advise. No Letter was generated. Patient has no upcoming appointment. * Lianna Meléndez NP - 12/28/2010 7:59 AM ESTQuick Note: appt 12/28/10 to review, a1c and microalbumin pending as of 12/28/10 documented in this encounter Plan of Treatment Upcoming Encounters Date Type Department Care Team (Latest Contact Info) Description 02/07/2025 9:25 AM EDT Office Visit [facility] [address] [place] [phone] Siomara Li MD [address] [place] [address] Return in about 3 months (around 03/12/2025). 05/12/2025 12:45 PM EDT CPE - Comprehensive Physical Exam [address] [phone] Tiffanie Rebolledo NP [address] [place] [address] Last CPE: Not Found 06/11/2025 11:05 AM EDT Office Visit [facility] [address] [place] [phone] Siomara Li MD [address] [place] [address] Keep this appt and Dr Britt can discuss at the January visit keep or move out documented as of this encounter Procedures * Due to [place] state law, this organization might not be sharing negative HIV tests. Procedure Name Priority Date/Time Associated Diagnosis Comments BASIC METABOLIC PANEL W/GLOMERULAR FILTRATION RATE (EGFR) Routine 12/27/2010 Diabetes HEMOGLOBIN A1C Routine 12/27/2010 Diabetes LIPID PANEL + CARDIAC RISK WITH REFLEX TO LDL DIRECT Routine 12/27/2010 Diabetes MICROALBUMIN (RANDOM URINE) Routine 12/27/2010 Diabetes ASPARTATE AMINOTRANSFERASE (AST), SERUM Routine 12/27/2010 Diabetes THYROID CASCADE Routine 12/27/2010 Hyperlipidemia Hypothyroidism documented in this encounter Results * Due to [place] [employer] law, this organization might not be sharing negative HIV tests. * THYROID CASCADE (12/27/2010) TSH, THYROTROPIN 2.421 0.40 - 4.50 UIU/ML [facility] 12/27/2010 12/27/2010 5:1 3 PM EST us Johnny Izquierdo MD LABORATORY Final Result Performing Organization Address City/State/[facility] Co de Phone Number [facility] [address] [place] [address] * (ABNORMAL) BASIC METABOLIC PANEL W/GLOMERULAR FILTRATION RATE (EGFR) (12/27/2010) CALCIUM 9.5 8.6 - 10.2 MG/DL [facility] BUN 8 7 - 25 MG/DL [facility] CREATININE 0.83 0.60 - 1.18 MG/DL [facility] Glucose 92 65 - 99 MG/DL [facility] SODIUM 146 135 - 146 MMOL/L [facility] POTASSIUM 4.6 3.5 - 5.3 MMOL/L [facility] CHLORIDE 114(H) 98 - 110 MMOL/L [facility] CARBON DIOXIDE 24 21 - 33 MMOL/L [facility] GFR > 60 60 AND ABOVE [facility] Comment:UNITS: ML/MIN/1.73 S Q METERS EGFR > 60 60 AND ABOVE [facility] Comment:UNITS: ML/MIN/1.73 S Q METERS 12/27/2010 12/27/2010 5:1 3 PM EST Narrative [facility] - 12/28/2010 2:21 AM EST Please note that this estimated GFR [...] calculation. Johnny Izquierdo MD LABORATORY Final Result Performing Organization Address [facility] Co de Phone Number [facility] [address] [place] [address] * MICROALBUMIN (RANDOM URINE) (12/27/2010) CREATININE (URINE) 117 20 - 320 MG/DL [facility] Microalbumin (Urine) < 5 NOT ESTABLISHED [facility] MICROALBUMIN/CR EAT RATIO (URINE) SEE TEXT 0 - 29 [facility] Comment: UNITS: MCG/MG CREATININE MICROALBUMIN <5, CANNOT CALCULATE RATIO 12/27/2010 12/27/2010 5:1 3 PM EST Johnny Izquierdo MD LABORATORY Final Result Performing Organization Address [facility] de Phone Number [facility] [address] [place] [address] * ASPARTATE AMINOTRANSFERASE (AST), SERUM (12/27/2010) AST (SGOT) 15 10 - 35 U/L [facility] 12/27/2010 12/27/2010 5:1 3 PM EST Johnny Izquierdo MD LAB SAME DAY RESULT Final Res ult Performing Organization Address [facility] Co de Phone Number [facility] [address] [place] [address] * (ABNORMAL) LIPID PANEL + CARDIAC RISK WITH REFLEX TO LDL DIRECT (12/27/2010) CHOLESTEROL, TOTAL 163 125 - 200 MG/DL [facility] TRIGLYCERIDES 185(H) 30 - 149 MG/DL [facility] HDL-CHOLESTEROL 32(L) 40 - 77 MG/DL [facility] LDL-CHOLESTEROL 94 62 - 130 MG/DL [facility] Comment: RISK CATEGORY: ??LDL-CHOLESTEROL GOAL CHD AND CHD RISK EQUIVALENTS: ??<100 MULTIPLE (2+) FACTORS: ??<130 ZERO TO ONE RISK FACTOR: ??<160 CHD RELATIVE RISK RATIO (TOTAL/HDL) 5.09(H) 0.0 - 5.0 [facility] Comment:(1.3 X AVERAGE) 12/27/2010 12/27/2010 5:1 3 PM EST us Johnny Izquierdo MD LABORATORY Final Result Performing Organization Address City/[facility]/ZIP Co de Phone Number [facility] [address] [place] [address] * (ABNORMAL) HEMOGLOBIN A1C (12/27/2010) Hemoglobin A1C 6.3(H) 0.0 - 5.7 % [facility] GLUCOSE MEAN VALUE 147 MG/DL [facility] 12/27/2010 12/27/2010 5:1 3 PM EST us Johnny Izquierdo MD LABORATORY Final Result Performing Organization Address [facility] Co de Phone Number [facility] [address] [place] [address] documented in this encounter Visit Diagnoses Diagnosis Diabetes (HCC) Type II or unspecified type diabetes mellitus without mention of complication, not stated as uncontrolled Hyperlipidemia Other and unspecified hyperlipidemia Hypothyroidism Unspecified hypothyroidism documented in this encounter Additional Health Concerns Infection Onset Date Last Indicated Resolved Time COVID-19 Rule-Out 09/12/2020 09/12/2020 12/07/2020 8:13 PM EST documented as of this encounter Care Teams Group Counselor Relationship Specialty Start Date End Date Johnny Izquierdo MD [address] [place] [address] PCP - General 01/14/06 04/21/22 Johnny Frazier MD [address] [place] [address] PCP - General Family Medicine 04/22/22 documented as of this encounter
--- OUTSIDE RECORDS SUMMARY | 2025-01-21 18:19 | XMS_ITS | Clinical Summary ---
Author Organization [facility] Address [address] [place] [address] Care Team Providers Care Director Cardiology Name Role Phone Johnyn Frazier MD Primary Care Provider [phone] Allergies No known active allergies Medications * This document contains information received from the source organization and may not represent a complete record from that organization. ASPIRIN (LOW-DOSE ASPIRIN) 81 MG OR TABS 2 TABLET DAILY Activ e Polyethylene Glycol 3350 (MIRALAX) Powder 1 capful daily Active QUEtiapine Fumarate (SEROquel) 200 MG tablet Take one tablet (200 mg total) by mouth every night 05/16/20 22 Active Benztropine Mesylate (COGENTIN) 1 MG tablet Take 1 mg by mouth 2 (two) times a day. 02/20/20 23 Active Amitriptyline HCl (ELAVIL) 10 MG tabletIndication s:Interstitial cystitis,Sensati on of pressure in bladder area Take 1 tablet orally nightly for 2 weeks, then increase to 2 tablets orally nightly for 2 weeks.. 42 tablet 02/29/20 24 Active Lamotrigine (LaMICtal) 200 MG tabletIndication s:Memory loss,Abnormal involuntary movements Take one tablet (200 mg total) by mouth every night. 06/04/20 24 Active Levothyroxine Sodium (SYNTHROID, LEVOTHROID) 125 MCG tabletIndication s:Hypothyroidism (acquired) Take one tablet (125 mcg total) by mouth 1 (one) time each day. 90 tablet 3 06/06/20 24 11/23/2 025 Active Docusate Sodium (COLACE) 100 MG capsule Take one capsule (100 mg total) by mouth 2 (two) times a day. 60 capsule 11 06/29/20 24 Active Atorvastatin Calcium (LIPITOR) 80 MG tablet TAKE 1 TABLET(80 MG) BY MOUTH 1 TIME EACH DAY. 90 tablet 3 06/29/20 24 Active Lisinopril (PRINIVIL,ZESTRI L) 10 MG tabletIndication s:Essential hypertension Take one tablet (10 mg total) by mouth 1 (one) time each day Needs lab work. 90 tablet 3 07/10/20 24 025 Active Myrbetriq 50 MG TABLET SR 24 HR TAKE 1 TABLET BY MOUTH DAILY FOR OVERACTIVE BLADDER. 90 tablet 3 07/10/20 24 Active Cetirizine HCl (ZyrTEC) 10 MG tablet TAKE 1 TABLET BY MOUTH DAILY FOR ALLERGY 90 tablet 3 07/12/20 24 Active QUEtiapine Fumarate (SEROquel) 50 MG tablet Take 50 mg by mouth every night. 07/09/20 24 Active ESTRADIOL VAGINAL (ESTRACE) 0.1 MG/GM vaginal creamIndications :Vaginal dryness Insert 1 (one) g into the vagina 3 (three) times a week Monday, Monday, Monday. 1 each 3 07/26/20 24 026 Active Omeprazole (PriLOSEC) [address] capsule Take one capsule (20 mg total) by mouth 2 (two) times a day For stomach acid or reflux. 180 capsule 3 10/21/20 24 Active metFORMIN ER (GLUCOPHAGE-XR) 500 MG 24 hr tabletIndication s:Type 2 diabetes mellitus without complication, without long-term current use of insulin (HCC) Take one tablet (500 mg total) by mouth in the morning and at bedtime. 180 tablet 1 01/03/20 25 Active Aripiprazole (ABILIFY) 20 MG tablet Take one tablet (20 mg total) by mouth 1 (one) time each day. 90 tablet 01/03/20 25 Active Benztropine Mesylate (COGENTIN) 0.5 MG tablet Take one tablet (0.5 mg total) by mouth 2 (two) times a day. 60 tablet 11 01/03/20 25 Active Benztropine Mesylate (COGENTIN) 0.5 MG tablet Take 0.5 mg by mouth 2 (two) times a day 08/19/20 025 Discontinu ed(Reorder (No Cancel Rx)) Aripiprazole (ABILIFY) 20 MG tablet Take one tablet (20 mg total) by mouth 1 (one) time each day. 90 tablet 07/12/20 24 025 Discontinu ed(Reorder (No Cancel Rx)) metFORMIN ER (GLUCOPHAGE-XR) 500 MG 24 hr tabletIndication s:Type 2 diabetes mellitus without complication, without long-term current use of insulin (HCC) Take one tablet (500 mg total) by mouth in the morning and at bedtime. 180 tablet 10/21/20 025 Discontinu ed(Reorder (No Cancel Rx)) Bacitracin 500 UNIT/GM ointmentIndicati ons:Open wound of middle finger Apply topically 2 (two) times a day for 7 days. 15 g 11/25/19 025 Active Problems Problem Noted Date Diagnosed Date Unintentional weight loss 12/03/2024 Overview (12/03/2024): 12/03/2024 has had a 40 pound weight loss in the last year. In November 2023 was 151 pounds, now 119 pounds. Has had worsening appetite, dysphagia and now left-sided neck and throat discomfort. Already has labs in place, additional labs ordered. Plan for EGD for further workup. Will discuss with PCP team whether they recommend waiting for EGD prior to additional weight loss workup. She will check weights at home weekly and I will reach out in 1 month to obtain readings Wt Readings from Last 6 Encounters: 12/03/24 119 lb (54 kg) 11/25/24 119 lb 6.4 oz (54.2 kg) 07/26/24 129 lb (58.5 kg) 06/05/24 139 lb (63 kg) 06/04/24 139 lb 9.6 oz (63.3 kg) 03/08/24 144 lb 9.6 oz (65.6 kg) Dysphagia 12/03/2024 Overview (12/03/2024): 12/03/2024 over the last 6 months, has been having difficulty swallowing tough/hard foods, such as meat. Will require her to swallow multiple times before she gets it down. Also having unintentional weight loss, 40 pounds in the last year-see weight loss problem list note. Presents today with left-sided throat and neck discomfort over the last 3 weeks. Recommend EGD given patient's symptoms and smoking history to rule out malignancy or other dysphagia disorders. In the meantime, recommend small frequent meals with fluids Vaginal dryness 07/26/2024 Overview (07/26/2024): 07/26/2024 patient with vaginal dryness, likely postmenopausal atrophic vaginitis, no concerning vulvar lesions on exam that would preclude prescription of Estrace. No itching, pain, bleeding, new sexual partners that would necessitate STI testing. Prescribed Estrace, patient will follow-up as needed. Chronic renal impairment, stage 3a 06/04/2024 Overview (06/04/2024): BP Readings from Last 3 Encounters: 06/04/24 112/60 03/08/24 100/64 02/29/24 118/62 Lab Results Component Value Date CREATININE 1.10 03/28/2024 Lab Results Component Value Date GFR 53 (L) 03/28/2024 Lab Results Component Value Date SODIUM 137 03/28/2024 Lab Results Component Value Date POTASSIUM 4.2 03/28/2024 POTASSIUM 4.5 01/03/2024 Lab Results Component Value Date LESIA 9.8 03/28/2024 No results found for: PTHINTACT , PTH No results found for: PHOSPHORUS No results found for: [id number] 06/04/2024 order PTH Liver lesion 01/26/2024 Overview (01/26/2024): 4 cm hypervascular lesion underside of liver seen on CT MRI ordered Fatty liver 10/21/2023 Overview (06/06/2024): Lab Results Component Value Date PROTEINTOTAL 7.8 06/05/2024 ALBUMIN 4.2 06/05/2024 BILI 0.3 06/05/2024 BILIDIRECT 0.1 09/20/2023 ALKPHOS 83 06/05/2024 AST 25 06/05/2024 ALT 29 06/05/2024 Lab Results Component Value Date WBC 7.4 06/05/2024 HGB 13.0 06/05/2024 HCT 39.4 06/05/2024 PLATELETS 244 06/05/2024 MCV 95.4 06/05/2024 RDW 13.1 06/05/2024 CT done 12/2023 shows nodular contour of liver refer to hepatology 06/06/2024 fib4 - 1.37 points; Advanced fibrosis excluded; Approximate fibrosis stage: Rashmi 0-1 (SEE ABOVE) Atherosclerosis of aorta 06/29/2023 Overview (12/18/2023): Refer to CT of Lung 06/06/2023: Aorta Normal aortic diameter. 4-vessel arch with the left vertebral artery arising between the left common carotid and subclavian arteries. Moderate calcified atherosclerotic plaque. 12/18/2023 Asymptomatic. Continuing to monitor BP, continues on ASA and statin. Patient smokes 1-2 cigarettes per day. Recommended full smoking cessation. Emphysema of lung 06/29/2023 Overview (12/18/2023): Refer to CT of Chest 06/06/2023: LUNG PARENCHYMA: Very mild upper lung predominant paraseptal and some scattered centrilobular emphysema. 12/18/2023 Breathing is stable. Lung sounds are clear. Patient is down to 1-2 cigarettes per day. Recommended full smoking cessation Chronic neck pain 04/04/2023 Overview (04/04/2023): 04/04/[address] Leon 2011 for cervical spinal stenosis; having some pain in the neck for at least the last 5 years, asking about neck brace; no regular exercise but does try some stretching, not taking medications; no radicular sxs; discussed option of PT Diabetic polyneuropathy asso ciated with type 2 diabetes mellitus 10/20/2020 Overview (12/18/2023): 04/04/2023 12/18/2023 denies numbness or pain at this time Mild intermittent asthma (HHS) 05/08/2019 Overview (12/18/2023): Qvar 04/04/2023 12/18/2023 using Qvar as needed but has not needed for a long time. Lung sounds clear on exam Pap smear for cervical cancer screening 11/28/19 17 Overview (04/20/2022): 11/24/2016 pap = Neg & hpv = not detected, stop screening paps. Controlled type 2 diabetes m er[place] with stage 1 chronic kidney disease, without long-term current use of insulin 09/19/2016 Overview (10/01/2024): BP Readings from Last 2 Encounters: 07/26/24 126/68 06/05/24 124/66 Lab Results Component Value Date A1C 6.6 (H) 06/05/2024 Lab Results Component Value Date LDL 114 (H) 06/05/2024 Lab Results Component Value Date ALBCRRU 8 06/05/2024 Lab Results Component Value Date VITB12 465 06/05/2024 Previously on insulin, stopped due to weight loss metformin 500 mg BID 05/16/2022 increase to 80 mg today 04/04/2023 A1C pending; she has not been eating as well 12/18/2023 A1c stable. Continues on Metformin. 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; also has been on cogentin 06/17/2024 [facility] discharge summary states that she is on Abilify 20 mg (this was recently increased) and she was to continue Seroquel 200 mg tablet plus Seroquel 50 mg tablet Essential hypertension 03/26/2015 Overview (06/17/2024): BP Readings from Last 3 Encounters: 06/04/24 112/60 03/08/24 100/64 02/29/24 118/62 Lab Results Component Value Date SODIUM 137 03/28/2024 Lab Results Component Value Date POTASSIUM 4.2 03/28/2024 Lab Results Component Value Date CREATININE 1.10 03/28/2024 Lab Results Component Value Date GFR 53 (L) 03/28/2024 06/04/2024 presently on lisinopril 10 mg 06/17/2024 [facility] discharge summary states that she is on lisinopril 5 mg Overactive bladder 07/16/2013 Overview (06/04/2024): 02/08/17 Anterior colporrhaphy, posterior colporrhaphy, perineorrhaphy, cystoscopy. Refractory overactive bladder status post InterStim implant History of interstitial cystitis - bladder instillations ? 3 with some improvement in her bladder pain symptoms. [place] in past 05/22/2023: patient is here with c/o dysuria- pressure that makes her feel like she needs to urinate, urinary frequency, incomplete bladder emptying. 06/04/2024 back on mirabegron (possibly when hospitalized in March); she is not presently using the amitriptyline; recommend make follow up visit with Urogyn Tubular adenoma of colon 10/29/2010 Overview (04/04/2023): 10/27/10 showed tubular adenoma 07/08/2021 last colonoscopy, repeat 5 years Mood Disorder (F39) 08/19/2009 Overview (12/18/2023): Lexapro 20 in past 12/18/2023 stable. Hypothyroidism (acquired) 08/19/2009 Overview (06/04/2024): Lab Results Component Value Date TSH 3.16 09/20/2023 Levothyroid 137 mcg Tobacco use disorder 08/19/2009 Overview (05/16/2022): 05/16/2022 quit 1 year; needs repeat CT lung in 1 year Gastroesophageal reflux disease 10/19/2007 Overview (06/04/2024): Lab Results Component Value Date MAGNESIUM 1.9 09/20/2023 Pantoprazole 40 mg 08/24/2022 taking omprazole about 1/2 hour prior to meals, now twice a day, recommend EGD as next step, patient to go back to [facility] 09/22/2022 EGD showed esophagitis, if Perera's then repeat EGD in 1 to 2 years; not confirmed to be Perera's on pathology 04/04/2023 sxs are a lot better Allergic rhinitis 10/19/2007 Hyperlipidemia with target LDL less than 100 Overview (06/17/2024): Lab Results Component Value Date CHOLESTEROL 219 (H) 01/03/2024 HDL 32 (L) 01/03/2024 LDL 151 (H) 01/03/2024 CHOLNONHDL 187 (H) 01/03/2024 TRIGLYCERIDE 218 (H) 01/03/2024 06/04/2024 presently on atorvastatin 80 mg 04/04/2023 still taking atorvastatin without issue; discussed diet contribution to cholesterol 08/24/2022 recheck lipids after increase of statin 12/18/2023 Continues on statin 06/17/2024 [facility] discharge summary states that she is on atorvastatin 20 mg ANXIETY STATE, NEUROTIC 04/06/2007 Overview (05/16/2022): Buspirone and clonzapam In past Resolved Problems Problem Noted Date Diagnosed Date Resolved Date Chronic neck pain PT 05/01/2023 023 Elevated ALT measurement 09/25/202201/2024 Overview (04/04/2023): Lab Results Component Value Date PROTEINTOTAL 7.4 01/18/2021 ALBUMIN 4.2 01/18/2021 BILI 0.4 01/18/2021 BILIDIRECT 0.1 01/18/2021 ALKPHOS 85 01/18/2021 AST 27 01/18/2021 ALT 38 (H) 01/18/2021 Panlobular emphysema 09/21/2021 022 COPD exacerbation 08/08/2018 04/20/2022 Pulmonary nodules 09/19/2017 04/20/2022 Overview (10/04/2018): 3 mm upper and lower lobe pulmonary nodules on CT Will repeat CT 2mm granuloma only Will continue lung cancer screening ct CT stable 09/2018 Schedule annual screen at next ov Type 2 diabetes mellitus wit hout complication, with long-term current use of insulin 03/16/2017 07/19/2018 Cigarette smoker 07/19/2016 04/20/2022 Lumbar radicular pain 05/26/20162022 Post-traumatic osteoarthriti s of left knee [M17.32] 05/26/2016 04/04/2023 Bilateral back pain - PT 02/16/2016 Diabetic polyneuropathy asso ciated with type 2 diabetes mellitus 09/11/2015 03/24/2016 Type 2 diabetes mellitus wit h diabetic neuropathy 03/26/2015 03/24/2016 Chest pain 01/21/2011 04/04/2023 Overview (04/20/2022): January 2011 cardiac catheterization normal 09/24/2021 Myocardial perfusion imaging is normal NEUROPATHY IN DIABETES 10/19/200703/26 Overview (02/27/2015): DM w/o complication type II 04/06/2007 07/14/2014 Overview (07/16/2013): On lantus 12 and metformin 850 bid Glyco at 6.1 Bipolar affective disorder, depressed 04/06/2007 03/26/2015 Overview (07/16/2013): Geodon 80 ,Lamictil 100 Lexapro 20 Encounters Date Type Department Care Team Description 01/20/2025 ER [facility] [address], Unknown Provider 01/19/2025 ER [facility] [address], Unknown Provider 01/18/2025 ER [facility] [address], Unknown Provider 01/14/2025 [facility] [address] [facility] [address] [place] [address] Siomara Li MD Memory loss 01/13/2025 Minor Procedure/Test NON FC [facility] [address] [place] [address] Siomara Li MD Discharge Disposition: Discharged to home or self care (routine discharge) 01/08/2025 [facility] [address], Unknown Provider 01/07/2025 ER [facility] [address], Unknown Provider 01/02/2025 Refill [facility] [address] [place] [address] Johnny Frazier MD Refill Request 01/01/2025 [facility] [address], Unknown Provider 12/31/2024 Telephone [facility] [address] [place] [address] Chelo Sims NP F/u From OV 12/28/2024 ER [facility] [address], Unknown Provider 12/25/2024 Telephone [facility] [address] [place] [address] Siomara Li MD Results (MRI Head) 12/25/2024 Telephone [facility] [address] [place] [address] NanSiomara mccoy MD Results (EEG) 12/19/[address] [address] Johnny Frazier MD Abdominal Pain ; Hospital F/U 12/18/2024 ER [facility] [address] [place] [address] [facility], Unknown Provider 12/16/2024 Consult (Initial) GASTRO UNSPECIFIED Zenobia Oro MD 12/13/2024 2:05 PM EST Office Visit [facility] [address] [place] [phone] Siomara Li MD Abnormal involuntary movements (Primary Dx); Cognitive decline 12/07/2024 Telephone [facility] Night Triage [address] [place] [address] Johnny Frazier MD Patient Education (Calling for recent lab results) 12/05/[address] [address] Chelo Sims NP Imaging Study 12/05/[address] [address] Johnny Frazier MD Results 12/04/[address] [address] Johnny Frazier MD Results 12/03/2024 10:20 AM EST Office Visit [address] [address] Chelo Sims NP Sore throat (Primary Dx); Unintentional weight loss; Screening for lung cancer; Dysphagia, unspecified type; Encounter for screening for malignant neoplasm of breast, unspecified screening modality 12/03/2024 Orders Only [address] [address] Johnny Frazier MD 12/03/2024 Orders Only [address] [place] [address] Tiffanie Rebolledo NP 12/03/2024 Orders Only [address] [phone] Chelo Sims, SOPHIE 12/03/[address] [address] Johnny Frazier MD Sore Throat 11/26/[address] [address] Tiffanie Rebolledo NP Results 11/25/2024 2:00 PM EST Office Visit [address] [address] Tiffanie Rebolledo NP Open wound of middle finger (Primary Dx); Controlled type 2 diabetes mellitus with stage 1 chronic kidney disease, without long-term current use of insulin; Chronic renal impairment, stage 3a; Emphysema of lung; Major depressive disorder, recurrent episode, in partial remission; Diabetic polyneuropathy associated with type 2 diabetes mellitus; Unspecified dementia, unspecified severity, without behavioral disturbance, psychotic disturbance, mood disturbance, and anxiety 11/22/[address] [address] Johnny Frazier MD Injury 10/28/2024 [facility] [address], Unknown Provider from Last 3 Months Immunizations Name Administration Dates Next Due COVID-19, mRNA (Pfizer Pre F all 2022) Monovalent, 30 mcg/0.3 ml 10/06/2021,02/20/2021,01/24/2021 FC Influenza Virus Vac Splt Prsrv Fr 3 Yrs+ 07/23 FC State H1N1 Vaccine,injection 10/29/2009 Influenza, Quad, Inactivated , Adjuvanted, Preser Fr 07/21/2023,08/24/2022 Influenza,high dose seasonal ,trivalent,PF (Fluzone HD) 10/22/2019,06/20/2018 Influenza,injectable,MDCK, Prsrv Fr,Quad 021,11/18/2017 Influenza,injectable,quad,Prsrv Fr 08/23/2016 Influenza,seasonal,trivalent ,preservative (FLUZONE MDV) 09/11/2007 PCV-13 08/23/2016 PPD/TST (Tuberculin Skin Test) 07/29/2005 PPV23 (Pneumovax) 06/20/2018,01/17/2011 Td (adult), 5 Lf tetanus tox oid, preservative free, adsorbed 05/10/2016 Td (adult), adsorbed 09/03/2005,08/27/1991 Tdap 06/20/2018 Zoster (Shingrix) 04/06/2019,06/20/2018 Zoster (Zostavax) 12/17/2014 influenza,seasonal,trivalent ,PF (Fluzone, Fluarix, Flulaval) 09/15/2020 Family History Medical History Relation Name Comments Cancer (?Type) Father Lung /Smoker Heart Disorder Mother Pulmonary Disorder Mother COPD Cancer - Breast Neg Hx Relation Name Status Comments Daughter 1 Gio Alive Daughter 2 Lianna Alive Daughter 3 Tarah Alive Father (Age 52) Lung Cance r/Smoker Mother (Age 80s) Natural C ause Son Ruslan Alive Behavorial Prob lems Social History Tobacco Use Types Packs/Day Years Used Date Smoking Tobacco: Some Days Cigarettes 0.5 56.5 Started: 07/19/1968 Smokeless Tobacco: Never Tobacco Cessation:Ready to Q uit: Not Asked; Counseling Given: Not Answered Alcohol Use Standard Drinks/Week Comments Yes 0 [...] on file Sexual Orientation Not on file Last Filed Vital Signs Vital Sign Reading Time Taken Comments Blood Pressure 143/65 12/13/2024 2:06 PM EST Pulse 67 12/13/2024 2:06 PM EST Temperature 36.7 ??C (98.1 ??F) 12/03/2024 1 0:05 AM EST Respiratory Rate 14 05/31/2018 2:12 PM EDT Oxygen Saturation 98% 06/04/2024 11: 19 AM EDT Inhaled Oxygen Concentration - - Weight 55.7 kg (122 lb 12.8 oz) 12/13/2024 2:06 PM EST Height 160 cm (5' 3 ) 02/29/2024 10:01 AM EDT Body Mass Index 21.75 02/29/2024 10:01 AM EDT Plan of Treatment Upcoming Encounters Date Type Department Care Team (Latest Contact Info) Description 02/07/2025 9:25 AM EDT Office Visit [facility] [address] [place] [phone] Siomara Li MD [address] [place] [phone] Return in about 3 months (around 03/12/2025). 05/12/2025 12:45 PM EDT CPE - Comprehensive Physical Exam [facility] [address] [place] [phone] Tiffanie Rebolledo, SYSTEM ARCHIVE ANALYST [address] [place] [address] Last CPE: Not Found 06/11/2025 11:05 AM EDT Office Visit [facility] [address] [place] [phone] Siomara Li MD [address] [place] [phone] Keep this appt and Dr Britt can discuss at the January visit keep or move out Health Maintenance Due Date Last Done Comments RSV (1 - Risk 60-74 years 1-dose series) 2011 Eye/Retina Exam 04/27/2023 04/27/2022, 03/23, 04/10/2020, Additional history exists CT Lung Screening 06/06/2024 06/06/2023, , 01/29/2021, Additional history exists COVID-19 Vaccine ( season) 2024 10/06/2021, 02/20/2021, 01/24/2021 Influenza (#1) 2024 07/21/2023, 11/2021, 07/21/2021, Additional history exists Mammogram/Breast Imaging 08/16/2024 023, 02/22/2021, 09/12/2018, Additional history exists HA1C 06/02/2025 12/03/2024, 05/23, 01/03/2024, Additional history exists LDL Cholesterol 06/05/2025 06/05/2024, 12/21, 04/04/2023, Additional history exists Microalbumin 06/05/2025 06/05/2024, 12/21, 09/20/2023, Additional history exists GFR 01/07/2026 01/07/2025, 12/21, 12/28/2024, Additional history exists Colonoscopy 07/08/2026 07/08/2021, 06/23, 10/27/2010, Additional history exists Parathyroid Hormone Screening 06/05/2027 06/05/2024 DTaP/Tdap/Td (2 - Td or Tdap) 06/20/2028 06/20/2018, 05/10/2016, 09/03/2005, Additional history exists PPD Discontinued 07/29/2005, 07/29/2005 Bone Density Completed 09/09/2011 Zoster (Zostavax) Discontinued 12/17/2014 Pap Smear Discontinued 11/24/2016, 04/2014, 04/13/2010, Additional history exists Pneumococcal 50+ years Completed 8, 08/23/2016, 01/17/2011 Zoster (Shingrix) Completed 04/06/2019, , 12/17/2014 Tonometry Discontinued 04/27/2022, 03/23, 12/18/2018, Additional history exists Upper Endoscopy Discontinued 09/22/2022 Hepatitis C Screening Completed 10/05/2023, 017 Chest Imaging Discontinued 12/28/2024, 05/2025, 01/23/2024, Additional history exists EKG Discontinued 01/07/2025, 05/2025, 03/28/2024, Additional history exists HPV Vaccine Aged Out No longer eligi ble based on patient's age to complete this topic Hep A Aged Out No longer eligi ble based on patient's age to complete this topic Hep B Aged Out No longer eligi ble based on patient's age to complete this topic Hib Aged Out No longer eligi ble based on patient's age to complete this topic Meningococcal ACWY Aged Out No longer eligible based on patient's age to complete this topic Goals Goal Patient Goal Type Associated Problems Recent Progress Patient-Stated? Author Blood Pressure < 140/80 Blood Pressure 143/65(2024 2:06 PM EST) No Arabella Solares PA Quit smoking / using tobacco Lifestyle No Ricarda Weeks HEMOGLOBIN A1C % < 7 Result Component 6.3( 10:29 AM EST) No Ricarda Weeks Procedures * Due to [place] state law, this organization might not be sharing negative HIV tests. Procedure Name Priority Date/Time Associated Diagnosis Comments DRUGS OF ABUSE SCREEN, URINE Routine 01/20/2025 4:37 PM EDT MICROSCOPIC URINALYSIS ONLY Routine 01/20/2025 4:37 PM EDT URINALYSIS W/REFLEX TO MICROSCOPIC & CULTURE Routine 01/20/2025 4:37 PM EDT URINE CULTURE, ROUTINE Routine 4:37 PM EDT TSH REFLEX FREE T4 Routine 01/20/2025 2: 49 PM EDT BASIC METABOLIC PANEL Routine 01/20/2025 2:49 PM EDT CBC Routine 01/20/2025 2:49 PM EDT TSH REFLEX FREE T4 Routine 01/18/2025 8: 31 AM EDT RAPID COVID-19 FOR SURVEILLANCE - [facility] ONLY Routine 01/18/2025 8:31 AM EDT ELECTROENCEPHALOGRAM (EEG) 01/13/2025 MICROSCOPIC URINALYSIS ONLY Routine 01/07/2025 8:06 PM EDT URINALYSIS W/REFLEX TO MICROSCOPIC & CULTURE Routine 01/07/2025 8:06 PM EDT URINE CULTURE, ROUTINE Routine 8:06 PM EDT CBC AUTO DIFFERENTIAL Routine 01/07/2025 7:26 PM EDT BASIC METABOLIC PANEL Routine 01/07/2025 7:26 PM EDT RAPID COVID-19 FOR SURVEILLANCE - [facility] ONLY Routine 01/07/2025 7:26 PM EDT BASIC METABOLIC PANEL Routine 01/02/2025 1:39 AM EDT CBC AUTO DIFFERENTIAL Routine 01/02/2025 1:39 AM EDT MICROSCOPIC URINALYSIS ONLY Routine 12/28/2024 1:08 PM EST DRUGS OF ABUSE SCREEN, URINE Routine 12/28/2024 1:08 PM EST URINALYSIS W/REFLEX TO MICROSCOPIC & CULTURE Routine 12/28/2024 1:08 PM EST URINE CULTURE, ROUTINE Routine 1:08 PM EST XR CHEST PORTABLE 1 VW 12:57 PM EST BASIC METABOLIC PANEL Routine 12/28/2024 11:09 AM EST CBC AUTO DIFFERENTIAL Routine 12/28/2024 11:09 AM EST MICROSCOPIC URINALYSIS ONLY Routine 12/18/2024 9:54 PM EST URINALYSIS W/REFLEX TO MICROSCOPIC & CULTURE Routine 12/18/2024 9:54 PM EST URINE CULTURE, ROUTINE Routine 9:54 PM EST BASIC METABOLIC PANEL Routine 12/18/2024 9:49 PM EST CBC AUTO DIFFERENTIAL Routine 12/18/2024 9:49 PM EST CULTURE, THROAT Routine 12/03/2024 10:33 AM EST Sore throat TSH, 3RD GENERATION Routine 12/03/2024 10:29 AM EST Hypothyroidism (acquired) HEMOGLOBIN A1C Routine 12/03/2024 10:29 AM EST Controlled type 2 diabetes mellitus with stage 1 chronic kidney disease, without long-term current use of insulin CBC INCLUDES DIFFERENTIAL AND PLATELET COUNT Routine 12/03/2024 10:29 AM EST Open wound of middle finger ERYTHROCYTE SEDIMENTATION RATE (ESR) Routine 12/03/2024 10:29 AM EST Open wound of middle finger C-REACTIVE PROTEIN (CRP) - INFLAMMATION Routine 12/03/2024 10:29 AM EST Open wound of middle finger HEPATIC FUNCTION PANEL (ALT,AST,ALK PH,BILI'S,TP,ALB) Routine 12/03/2024 10:29 AM EST Unintentional weight loss LACTATE DEHYDROGENASE (LDH), SERUM Routine 12/03/2024 10:29 AM EST Unintentional weight loss INFECTIOUS AGENT AG DETECTION BY IMMUNOASSAY W DIRECT OPTICAL OBSERVATION; STREPTOCOCCUS, GROUP A Routine 12/03/2024 10:13 AM EST Sore throat COMPREHENSIVE METABOLIC PANEL WITH GFR Routine 06/05/2024 11:22 AM EDT Essential hypertension Fatty liver PTH, INTACT (WITHOUT CALCIUM) Routine 06/05/2024 11:22 AM EDT Chronic renal impairment, stage 3a ALBUMIN (MICROALBUMIN), RANDOM URINE, WITH CREATININE Routine 06/05/2024 11:22 AM EDT Controlled type 2 diabetes mellitus with stage 1 chronic kidney disease, without long-term current use of insulin LIPID PANEL WITH REFLEX TO DIRECT LDL Routine 06/05/2024 11:22 AM EDT Hyperlipidemia with target LDL less than 100 HEPATITIS C AB WITH REFLEX TO RNA PCR, SERUM Routine 10/05/2023 11:45 AM EST Elevated ALT measurement MAMMOGRAPHY BILAT 3D FELIX(DX:SCREENING FOR BREAST CA Z12.31)FC Routine 08/16/2023 12:[address] LUNG CANCER SCREENING 12 MONTHS ANNUAL FOLLOW UP 06/06/2023 7:46 AM EDT EGD (UPPER GI ENDOSCOPY) 09/22/2022 COMPREHENSIVE EYE EXAM 04/27/2022 COLONOSCOPY 07/08/2021 EKG-TO BE READ & BILLED BY ADULT OR PEDIATRIC CARDIOLOGY Routine 12/03/2020 10:51 AM EST Precordial pain [employer] FPGS PAP AND HR HPV DNA Routine 11/24/2016 2:42 PM EST Cervical cancer screening DXA BONE DENSITY STUDY AXIAL (LSSPINE, HIP) Routine 09/09/2011 2:28 PM EST Postmenopause SKIN TEST; TUBERCULOSIS, INTRADERMAL 0.1ML 07/29/2005 12:00 AM EDT Health Examination Of Defined Subpopulation from Last 3 Months or Most Recently Relevant to Health Maintenance Results * Due to [place] state law, this organization might not be sharing negative HIV tests. * DRUGS OF ABUSE SCREEN, URINE (01/20/2025 4:37 PM EDT) Only the most recent of2 resultswithin the time period is included. Amphetamines (Urine) Negative Negative [facility] Comment: Detection limit of 1000 ng/mL of d-Methamphetamine. Drug results are to be used only for medical purposes. ??Unconfirmed screening results must not be used for non-medical purposes. Barbiturates (Urine) Negative Negative [facility] Comment: Detection limit of 200 ng/mL of Secobarbital. Drug results are to be used only for medical purposes. ??Unconfirmed screening results must not be used for non-medical purposes. Benzodiazepines (Urine) Negative Negative [facility] Comment: Detection limit of 200 ng/mL of Nordiazepam. Drug results are to be used only for medical purposes. ??Unconfirmed screening results must not be used for non-medical purposes. BUPRENORPHINE Negative Negative [facility] Comment: Detection limit of 10 ng/mL of norbuprenorphine. Drug results are to be used only for medical purposes. ??Unconfirmed screening results must not be used for non-medical purposes. Benzoylecgonine (Cocaine Metabolite) (Urine) Negative Negative [facility] Comment: Detection limit of 300 ng/mL of Benzoylecgonine. Drug results are to be used only for medical purposes. ??Unconfirmed screening results must not be used for non-medical purposes. Cannabinoids (Urine) Negative Negative [facility] Comment: Detection limit of 50 ng/mL of 11-Cqc-zhtml-2-EKX-2-carboxylic acid. Drug results are to be used only for medical purposes. ??Unconfirmed screening results must not be used for non-medical purposes. Methadone (Urine) Negative Negative [facility] Comment: Detection limit of 300 ng/mL of Methadone. Drug results are to be used only for medical purposes. ??Unconfirmed screening results must not be used for non-medical purposes. Oxycodone (Urine) Negative Negative [facility] Comment: Detection limit of 100 ng/mL of Oxycodone. Drug results are to be used only for medical purposes. ??Unconfirmed screening results must not be used for non-medical purposes. Opiates (Urine) Negative Negative [facility] Comment: Detection limit of 300 ng/mL of Morphine. Drug results are to be used only for medical purposes. ??Unconfirmed screening results must not be used for non-medical purposes. FENTANYL SCREEN, URINE Negative Negative [facility] Comment: Detection limit of 5 ng/mL of norfentanyl. Drug results are to be used only for medical purposes. ??Unconfirmed screening results must not be used for non-medical purposes. 01/20/2025 4:37 PM EDT us Unknown Provider [facility] LABORATORY Final Resu lt Performing Organization Address City/[facility]/ZIP Co de Phone Number [facility] [employer] [address] [place] [phone] * (ABNORMAL) MICROSCOPIC URINALYSIS ONLY (01/20/2025 4:37 PM EDT) Only the most recent of4 resultswithin the time period is included. WBC (Urine) 20-30(A) 0-2, None Seen /HPF [facility] RBC (Urine Sed) None Seen 0-2, None Seen /HPF [facility] Bacteria (Urine) 2+(A) None Seen /HPF [facility] Epithelial cells.squamous (Urine sed) Many /HPF [facility] Hyaline casts (Urine sed) 20-30 /LPF [facility] 01/20/2025 4:37 PM EDT us Unknown Provider [facility] LABORATORY Final Resu lt Performing Organization Address City/[facility]/ZIP Co de Phone Number [facility] [employer] [address] [place] [address] * (ABNORMAL) URINALYSIS W/REFLEX TO MICROSCOPIC & CULTURE (01/20/2025 4:37 PM EDT) Only the most recent of4 resultswithin the time period is included. Color (Urine) Yellow Yellow [facility] Clarity (Urine) Slightly Cloudy(A) Clear [facility] Specific gravity (Urine) 1.020 1.005 - 1.030 [facility] pH (Urine) 5.5 5.0 - 8.0 [facility] Protein (Urine) Trace(A) Negative mg/dL [facility] Glucose (Urine) Negative Negative mg/dL [facility] Ketones (Urine) Negative Negative mg/dL [facility] Bilirubin (Urine) Negative Negative [facility] Hemoglobin (Urine) Negative Negative [facility] Nitrite (Urine) Negative Negative [facility] Urobilinogen (Urine) 0.2 0.2, 1.0 E.U./dL [facility] Leukocyte esterase (Urine) Moderate(A) Negative [facility] 01/20/2025 4:37 PM EDT Narrative [facility] - 01/20/2025 5:24 PM EDT Some urinalysis results will not meet the criteria for reflex urine culture although certain urine values may be abnormal. ??Additional testing can be ordered by the provider if clinically warranted. us Unknown Provider [facility] LABORATORY Final Resu lt [facility] [employer] [address] [place] [address] * CBC (01/20/2025 2:49 PM EDT) WBC 6.2 3.8 - 10.8 10*3/uL [facility] RBC 4.76 3.80 - 5.10 10*6/uL [facility] Hemoglobin 14.6 11.7 - 15.5 g/dL [facility] Hematocrit 42.9 35.0 - 45.0 % [facility] MCV 90.1 80.0 - 100.0 fL [facility] MCH 30.7 27.0 - 33.0 pg [facility] MCHC 34.0 32.0 - 36.0 g/dL [facility] RDW 13.0 11.0 - 15.0 % [facility] PLT 221 140 - 400 10*3/uL [facility] Platelet mean volume 11.5 7.5 - 12.5 fL [facility] 01/20/2025 2:49 PM EDT us Unknown Provider [facility] LABORATORY Final Resu lt Performing Organization Address [facility]/ZIP Co de Phone Number [employer] [address] [place] [phone] * TSH REFLEX FREE T4 (01/20/2025 2:49 PM EDT) Only the most recent of2 resultswithin the time period is included. TSH 0.733 0.280 - 3.890 uIU/mL [facility] Comment: Females: 1st trimester ? 0.150-4.000 ?IU/mL 2nd trimester ?? 0.310-4.170 ???IU/mL 3rd trimester ?0.380-4.150 ???IU/mL 01/20/2025 2:49 PM EDT us Unknown Provider [facility] LABORATORY Final Resu lt Performing Organization Address [facility] de Phone Number [facility] [employer] [address] [place] [address] * (ABNORMAL) BASIC METABOLIC PANEL (01/20/2025 2:49 PM EDT) Only the most recent of5 resultswithin the time period is included. Sodium 143 135 - 145 mmol/L [facility] Potassium 4.7 3.5 - 5.3 mmol/L [facility] Chloride 104 98 - 107 mmol/L [facility] Carbon dioxide 25 22 - 32 mmol/L [facility] Urea Nitrogen Blood (BUN) 17 7 - 23 mg/dL [facility] Creatinine 1.08 0.50 - 1.20 mg/dL [facility] Glucose 96 65 - 99 mg/dL [facility] Calcium 9.7 8.6 - 10.5 mg/dL [facility] Anion gap 14 5 - 15 [facility] EGFR 54(L) >=60 mL/min/1.7 3m2 [facility] Comment: The estimated glomerular filtration rate (eGFR) is calculated using a new formula developed by the NKF-ASN task force to eliminate race-based correction factors. The new formula uses serum/plasma creatinine, age, and gender to determine eGFR. A value below 60mls/min might indicate kidney disease and will be flagged. For additional information, see Britney et al, Am J Kidney Dis. 2021;79(2):268-288, A Unifying Approach for GFR estimation: Recommendations of the NKF-ASN Task Force on Reassessing the Inclusion of Race in Diagnosing Kidney Disease . 01/20/2025 2:49 PM EDT us Unknown Provider [facility] LABORATORY Final Resu lt Performing Organization Address [facility] Co de Phone Number [facility] [employer] [address] [place] [address] * RAPID COVID-19 FOR SURVEILLANCE - [facility] ONLY (01/18/2025 8:31 AM EDT) Only the most recent of2 resultswithin the time period is included. SARS-COV-2 RNA Not Detected Not Detected [facility] Comment: A Not Detected (Negative) test result [...] be considered. 01/18/2025 8:31 AM EDT Narrative [facility] - 01/18/2025 9:41 AM EDT This test was developed, validated and its performance characteristics determined by [facility] Clinical Labs. This test has not been cleared or approved by the U.S. Food and Drug Administration (FDA). FDA Policy for Diagnostic Tests for Coronavirus Disease-2019 during the Public Health Emergency issued January 06, 2020, is followed. us Unknown Provider [facility] LABORATORY Final Resu lt Performing Organization Address [facility]/ZIP Co de Phone Number [facility] [employer] [address] [place] [address] * ELECTROENCEPHALOGRAM (EEG) (01/13/2025) Narrative Procedure Note Siomara Li MD - 01/13/2025 5:27 PM EDT Outpatient routine Electroencephalogram report Date of recordin01-13-25 Date of interpretation: 01-13-25 Ordering physician:Siomara Li MD Reading physician: Siomara Li MD Reason for study: Cognitive decline Duration:31 minutes Pertinent medications: No FORESTRY FOREMAN medication listed. Technical description: This is a routine EEG performed utilizing the international 10-20 montageof electrode placement with single channel EKG and video monitoring. Photic stimulation was performed. Hyperventilation was not performed Findings: There is a well formed, organized, symmetric, moderate voltage posterior dominant rhythm of 10 Hz which attenuates with eye opening. Drowsiness is characterized by drop out of overlying faster activities,mild slowing of the background, slow roving eye movements, and vertex waves Stage 2 sleep is not attained. Stepwise photic stimulation from 1-30 Hz produces no abnormal photicdriving or photoparoxysmal response. Hyperventilation was not performed as per protocol. Single lead EKG shows regular rhythm. No epileptiform discharges or electrographic seizures are seen. Frequent muscle artifacts, Blink artifacts, chewing / mouth movementartifacts are seen Impression: This is a normal 31 minute EEG in the awake and drowsy phases. No epileptiform discharges or electrographic seizures are seen. A normal EEG does not rule out the clinical diagnosis of seizures orEpilepsy. Siomara Li MD PROCEDURES Fin al Result * URINE CULTURE, ROUTINE (01/07/2025 8:06 PM EDT) Only the most recent of3 resultswithin the time period is included. URINE CULTURE WORKUP 75,000-10 0,000 CFU/mL [facility] Comment:Mixed Gram positive organisms, greater than three (3) different colony morphologies with no predominant organism present. Consistent with urogenital contamination at 24 hours. 01/07/2025 8:06 PM EDT us Unknown Provider [facility] LABORATORY Final Resu lt [facility] [employer] [address] [place] [phone] * CBC AUTO DIFFERENTIAL (01/07/2025 7:26 PM EDT) Only the most recent of4 resultswithin the time period is included. WBC 6.4 3.8 - 10.8 10*3/uL [facility] RBC 3.98 3.80 - 5.10 10*6/uL [facility] Hemoglobin 12.3 11.7 - 15.5 g/dL [facility] Hematocrit 35.7 35.0 - 45.0 % [facility] MCV 89.7 80.0 - 100.0 fL [facility] MCH 30.9 27.0 - 33.0 pg [facility] MCHC 34.5 32.0 - 36.0 g/dL [facility] RDW 12.9 11.0 - 15.0 % [facility] PLT 170 140 - 400 10*3/uL [facility] Platelet mean volume 11.6 7.5 - 12.5 fL [facility] Neutrophils % 54.3 % [facility] Granulocytes.ernesto ture/100 leukocytes 0.2 0.0 - 0.9 % [facility] Lymphocytes % 34.9 % [facility] Monocytes % 6.7 % [facility] Eosinophils % 2.5 % [facility] Basophils % 1.4 % [facility] Neutrophils # 3.49 1.50 - 7.80 10*3/uL [facility] Immature Granulocytes # <0.03 <=0.03 10*3/uL [facility] Lymphocytes # 2.20 0.85 - 3.90 10*3/uL [facility] Monocytes # 0.40 0.20 - 0.95 10*3/uL [facility] Eosinophils # 0.20 0.02 - 0.50 10*3/uL [facility] Basophils # 0.10 0.00 - 0.20 10*3/uL [facility] Erythrocytes.nucl eated/100 leukocytes 0.0 /100 WBCs [facility] Erythrocytes.nucl eated <0.01 <0.01 10*3/uL [facility] 01/07/2025 7:26 PM EDT us Unknown Provider [facility] LABORATORY Final Resu lt [facility] [employer] [address] [place] [address] * XR CHEST PORTABLE 1 VW (12/28/2024 12:57 PM EST) Anatomical Region Laterality Modality Other 12/28/2024 12:5 7 PM EST Narrative 12/28/2024 12:57 PM EST XR CHEST PORTABLE 1 VIEW INDICATION: Cough. COMPARISON: CT lung cancer screening 05/18/2023, 01/28/2021, chest radiograph 01/09/2011. FINDINGS: Telemetry leads project over the thorax and epigastrium. ??Partially included cervical fusion hardware. The mediastinum is normal in size and shape. The heart is normal in size. The pulmonary vasculature is unremarkable. The lungs demonstrate normal volumes. There is no focal consolidation. There is no pleural effusion or pneumothorax. There are no acute osseous abnormalities. IMPRESSION: No acute pulmonary process. ISilvano, have reviewed the examination and concur with the findings as reported or so edited. Trainee: ??Forrest Fernandez If this radiology report contains a blank impression section, it is an incomplete radiology report. ??Please contact the interpreting radiologist or applicable radiology division as soon as possible to obtain the completed interpretation. ? Workstation ID: [id number] 5' 3 [id number] Procedure Note [facility], Unknown Provider - 12/28/2024 XR CHEST PORTABLE 1 VIEW INDICATION: Cough. COMPARISON: CT lung cancer screening 05/18/2023, 01/28/2021, chestradiograph 01/09/2011. FINDINGS: Telemetry leads project over the thorax and epigastrium. Partiallyincluded cervical fusion hardware. The mediastinum is normal in size and shape. The heart is normal in size.The pulmonary vasculature is unremarkable. The lungs demonstrate normalvolumes. There is no focal consolidation. There is no pleural effusion orpneumothorax. There are no acute osseous abnormalities. IMPRESSION: No acute pulmonary process. Silvano Enriquez, have reviewed the examination and concur with the findingsas reported or so edited. Trainee: Forrest Fernandez If this radiology report contains a blank impression section, it is anincomplete radiology report. Please contact the interpreting radiologistor applicable radiology division as soon as possible to obtain thecompleted interpretation. Workstation ID: [id number] 5' 3 144 us Unknown Provider [facility] Final Resu lt * CULTURE, THROAT (12/03/2024 10:33 AM EST) Bacteria culture (Throat) SEE NOTE [facility] Comment: ??CULTURE, THROAT ??Micro Number: ?[id number] ??Test Status: ? Final ??Specimen Source: ?? Not given ??Specimen Quality: ??Adequate ??Result: ?No oropharyngeal pathogens recovered. 12/03/2024 10:3 3 AM EST 12/03/2024 10:38 PM EST Narrative Resulting Agency Comment [id number] us Chelo Sims SYSTEM ARCHIVE ANALYST LABORATORY Final Result Performing Organization Address City/[facility]/ZIP Co de Phone Number [facility] [address] [place] [address] * C-REACTIVE PROTEIN (CRP) - INFLAMMATION (12/03/2024 10:29 AM EST) C reactive protein <3.0 <8.0 mg/L [facility] 12/03/2024 10:2 9 AM EST 12/03/2024 11:40 PM EST Narrative Resulting Agency Comment [id number] us Tiffanie Rebolledo SYSTEM ARCHIVE ANALYST LABORATORY Final Result Performing Organization Address City/[facility]/ZIP Co de Phone Number [facility] [address] [place] [address] * ERYTHROCYTE SEDIMENTATION RATE (ESR) (12/03/2024 10:29 AM EST) Sedimentation Rate [place] (ESR) 17 < OR = 30 mm/h [facility] 12/03/2024 10:2 9 AM EST 12/03/2024 11:40 PM EST Narrative Resulting Agency Comment [id number] Tiffanie Rebolledo SYSTEM ARCHIVE ANALYST LAB SAME DAY RESULT Final Re sult Performing Organization Address [facility] Co de Phone Number [facility] [address] [place] [address] * (ABNORMAL) CBC INCLUDES DIFFERENTIAL AND PLATELET [...] 11:40 PM EST Narrative Resulting Agency Comment [id number] Tiffanie Rebolledo SYSTEM ARCHIVE ANALYST LAB SAME DAY RESULT Final Re sult Performing Organization Address [facility] Co de Phone Number [facility] [address] [place] [address] * TSH, 3RD GENERATION (12/03/2024 10:29 AM EST) TSH 0.51 0.40 - 4.50 mIU/L [facility] 12/03/2024 10:2 9 AM EST 12/03/2024 11:39 PM EST Narrative Resulting Agency Comment [id number] Johnny Frazier MD LABORATORY Final Result Performing Organization Address [facility] de Phone Number [facility] [address] [place] [address] * LACTATE DEHYDROGENASE (LDH), SERUM (12/03/2024 10:29 AM EST) Pathologist [facility] Lactate dehydrogenase 141 120 - 250 U/L [facility] 12/03/2024 10:2 9 AM EST 12/03/2024 11:40 PM EST Narrative Resulting Agency Comment [id number] Chelo Sims NP LABORATORY Final Result Performing Organization Address [facility] de Phone Number [facility] [address] [place] [address] * (ABNORMAL) HEMOGLOBIN A1C (12/03/2024 10:29 AM EST) Pathologist [facility] Hemoglobin A1C 6.3(H) <5.7 % of total [...] 11:40 PM EST Narrative Resulting Agency Comment [id number] Tiffanie Rebolledo NP LABORATORY Final Result Performing Organization Address [facility] de Phone Number [facility] [address] [place] [address] * HEPATIC FUNCTION PANEL (ALT,AST,ALK PH,BILI'S,TP,ALB) (12/03/2024 10:29 AM EST) Pathologist [facility] Protein Total (Serum) 7.2 6.1 - 8.1 g/dL [facility] Albumin 4.2 3.6 - 5.1 g/dL [facility] Globulin 3.0 1.9 - 3.7 g/dL (calc) [facility] Albumin/Globulin 1.4 1.0 - 2.5 (calc) [facility] Bilirubin Total 0.3 0.2 - 1.2 mg/dL [facility] Bilirubin Direct 0.1 < OR = 0.2 mg/dL [facility] Bilirubin Indirect 0.2 0.2 - 1.2 mg/dL (calc) [facility] Alkaline phosphatase 86 37 - 153 U/L [facility] AST (SGOT) 17 10 - 35 U/L [facility] ALT (SGPT) 13 6 - 29 U/L [facility] 12/03/2024 10:2 9 AM EST 12/03/2024 11:40 PM EST Narrative Resulting Agency Comment [id number] Chelo Sims SYSTEM ARCHIVE ANALYST LABORATORY Final Result Performing Organization Address [facility] de Phone Number [facility] [address] [place] [phone] * STREP THROAT (GROUP A) RAPID DETECTION - STATION (12/03/2024 10:13 AM EST) [facility] STREP GROUP A, RAPID (THROAT) NEGATIVE 12/03/2024 10:1 3 AM EST Chelo Sims SYSTEM ARCHIVE ANALY[employer] STATION LAB Final Result * PTH, INTACT (WITHOUT CALCIUM) (06/05/2024 11:22 AM EDT) [facility] Parathyroid Hormone (PTH), Intact 53 16 - 77 pg/mL [facility] Comment: Interpretive Guide ?Intact PTH ? Calcium ? ------- Normal Parathyroid ?Normal ? Normal Hypoparathyroidism ?Low or Low Normal ?Low Hyperparathyroidism ?? Primary ?Normal or High ? High ?? Secondary ?High ? Normal or Low ?? Tertiary ? High ? High Non-Parathyroid ?? Hypercalcemia ?Low or Low Normal ?High 06/05/2024 11:2 2 AM EDT 06/05/2024 11:31 PM EDT Narrative Resulting Agency Comment [id number] Johnny Frazier MD LABORATORY Final Result [facility] [address] [place] [address] * ALBUMIN (MICROALBUMIN), RANDOM URINE, WITH CREATININE [...] 11:31 PM EDT Narrative Resulting Agency Comment [id number] Johnny Frazier MD LABORATORY Final Result [facility] [address] [place] [address] * (ABNORMAL) LIPID PANEL WITH REFLEX TO [...] factors. LDL-C is now calculated using the Bobby-Maeve calculation, which is a validated novel method providing better accuracy than the Friedewald equation in the estimation of LDL-C. Bobby SS et al. HECTOR. 2013;310(19): 5136-2610 (http://education.Shoop/faq/LTE160) CHOL/HDL Ratio 5.3(H) <5.0 (calc) [facility] Cholesterol Non-HDL 145(H) <130 mg/dL (calc) [facility] Comment: For patients with diabetes plus 1 major ASCVD risk factor, treating to a non-HDL-C goal of <100 mg/dL (LDL-C of <70 mg/dL) is considered a therapeutic option. 06/05/2024 11:2 2 AM EDT 06/05/2024 11:31 PM EDT Narrative Resulting Agency Comment [id number] Johnny Frazier MD LABORATORY Final Result [facility] [address] [place] [address] * COMPREHENSIVE METABOLIC PANEL WITH GFR (06/05/2024 11:22 AM EDT) Glucose 91 65 - 99 mg/dL [facility] Comment:Fasting reference in terval Urea Nitrogen Blood (BUN) 16 7 - 25 mg/dL [facility] Creatinine 0.85 0.60 - 1.00 mg/dL [facility] EGFR 73 > OR = 60 mL/min/1. 73m2 [facility] BUN/Creatinine Ratio SEE NOTE: 6 - 22 (calc) [facility] Comment: ?? Not Reported: [...] needs for GFR calculation. Resulting Agency Comment [id number] us Johnny Frazier MD LABORATORY Final Result [facility] [address] [place] [address] * HEPATITIS C AB WITH REFLEX TO RNA PCR, SERUM (10/05/2023 11:45 AM EST) Hepatitis C virus Ab NON-REACT ISAMAR NON-REACT ISAMAR [facility] Comment: HCV antibody was non-reactive. There is no laboratory evidence of HCV infection. In most cases, no further action is required. However, if recent HCV exposure is suspected, a test for HCV RNA (test code 19442) is suggested. For additional information please refer to [email or web address]/faq/OZJ35l5 (This link is being provided for informational/ educational purposes only.) 10/05/2023 11:4 5 AM EST 10/05/2023 4:34 PM EST Narrative Resulting Agency Comment [id number] Johnny Frazier MD LABORATORY Final Result [facility] [address] [place] [address] * MAMMOGRAPHY BILAT 3D FELIX(DX:SCREENING FOR BREAST CA Z12.31)FC (08/16/2023 12:56 PM EDT) Anatomical Region Laterality Modality BREAST Bilateral Mammography Impressions 08/23/2023 2:19 PM EDT : No mammographic evidence of malignancy BI-RADS: 2 - Benign (overall) RECOMMENDATION: ?- Routine Screening Mammogram. A result letter has been sent to the patient. Narrative 08/23/2023 2:19 PM EDT EXAMINATION: SCREENING MAMMOGRAM HISTORY: Screening TECHNIQUE: Standard Bilateral 2D digital mammography and tomosynthesis were obtained and interpreted with CAD COMPARISON: Comparison is made to prior exams dated back to 2016 BREAST COMPOSITION: The breasts are almost entirely fatty. FINDINGS: There are no suspicious masses, calcifications or areas of unexplained architectural distortion. ??Stable postreduction changes. us Johnny Frazier MD IMG MAMMO ORDERABLES Final Res ult * CT LUNG CANCER SCREENING 12 MONTHS ANNUAL FOLLOW UP (06/06/2023 7:46 AM EDT) Anatomical Region Laterality Modality Other 06/06/2023 7:46 AM EDT Narrative 06/06/2023 7:[address] LUNG CANCER SCREENING 12 MONTHS ANNUAL FOLLOW UP Indication: ??F17.200 - I10 - Nicotine dependence, unspecified, uncomplicated. Technique: ??Non-enhanced chest CT. Images were acquired with helical acquisition and low dose technique. Multiplanar reconstructions including MIP, MinIP and Slab images were reviewed. Note that low dose technique uses a low level of radiation exposure that provides adequate lung detail but limited image quality in the mediastinum and upper abdomen. For radiation dose control at least one of the following techniques was used in this procedure (1) Automated exposure control (2) Adjustment of the mA and/or kV according to patient size (3) Use of iterative reconstruction technique. Comparison: Low-dose CT chest for lung screening 01/28/2021 (baseline) Findings: Neck and thoracic inlet: Unremarkable, no thyromegaly. MEDIASTINUM AND LARGE VESSELS: ? Aorta Normal aortic diameter. ??4-vessel arch with the left vertebral artery arising between the left common carotid and subclavian arteries. Moderate calcified atherosclerotic plaque. Pulmonary arteries Unremarkable shape and diameter. Esophagus Nondilated. Other mediastinal findings No other abnormal mediastinal findings are present. HEART: Cardiac size Normal. Coronary arteries Mild coronary calcifications. Valves No valvular calcifications. Pericardium Unremarkable. LYMPH NODES: Supraclavicular and axillary Normal sized lymph nodes, no enlarged lymph nodes. Mediastinal Normal sized lymph nodes, no enlarged lymph nodes. Hilar Unremarkable hilar contours. The absence of intravenous contrast limits the evaluation for adenopathy. Others None. LUNG PARENCHYMA: Very mild upper lung predominant paraseptal and some scattered centrilobular emphysema. ??The horizontal fissure on the right is incomplete medially. ??Few scattered calcified granulomas with no new or developing suspicious pulmonary nodule. Airways: Right lower lobe mucous plug, otherwise unremarkable. Pleura: No pleural effusion, thickening, or pneumothorax. Upper abdomen: No abnormality in the visualized upper abdominal structures, within the limitations of examination technique. Chest wall and bones: Lower cervical spine anterior cortical plate and screws partially visualized. ??Mild multilevel disc degeneration, normal thoracic vertebral body heights. IMPRESSION: Impression: Very mild upper lung emphysema with no new or developing suspicious pulmonary nodule. Lung-RADS Category 1: Negative- less than 1% probability ??of malignancy. Lung-RADS Category Description 1: Continue annual screening with CT Lung Screening in 12 months. Findings under this category can include: ?? - No lung nodules or nodule(s) with benign calcification pattern. ?? Modifier: No clinically significant or potentially significant findings. Schedule lung cancer screening CT/follow-up CT: 05/19/2024 ----- ----- This report uses Lung RADS version 2022 If this radiology report contains a blank impression section, it is an incomplete radiology report. ??Please contact the interpreting radiologist or applicable radiology division as soon as possible to obtain the completed interpretation. ? Workstation ID: [id number] Up-to-date CT equipment and radiation dose reduction techniques were employed. CTDIvol: 2.1 mGy. DLP: 72 mGy-cm. Procedure Note [facility], Unknown Provider - 06/06/2023 CT LUNG CANCER SCREENING 12 MONTHS ANNUAL FOLLOW UP Indication: F17.200 - I10 - Nicotine dependence, unspecified,uncomplicated. Technique: Non-enhanced chest CT. Images were acquired with helicalacquisition and low dose technique. Multiplanar reconstructions includingMIP, MinIP and Slab images were reviewed. Note that low dose techniqueuses a low level of radiation exposure that provides adequate lung detail but limited image quality in themediastinum and upper abdomen. For radiation dose control at least one of the following techniques wasused in this procedure (1) Automated exposure control (2) Adjustment ofthe mA and/or kV according to patient size (3) Use of iterativereconstruction technique. Comparison: Low-dose CT chest for lung screening 01/28/2021 (baseline) Findings: Neck and thoracic inlet: Unremarkable, no thyromegaly. MEDIASTINUM AND LARGE VESSELS: Aorta Normal aortic diameter. 4-vessel arch with the left vertebral arteryarising between the left common carotid and subclavian arteries. Moderatecalcified atherosclerotic plaque. Pulmonary arteries Unremarkable shape and diameter. Esophagus Nondilated. Other mediastinal findings No other abnormal mediastinal findings are present. HEART: Cardiac size Normal. Coronary arteries Mild coronary calcifications. Valves No valvular calcifications. Pericardium Unremarkable. LYMPH NODES: Supraclavicular and axillary Normal sized lymph nodes, no enlarged lymph nodes. Mediastinal Normal sized lymph nodes, no enlarged lymph nodes. Hilar Unremarkable hilar contours. The absence of intravenous contrast limitsthe evaluation for adenopathy. Others None. LUNG PARENCHYMA: Very mild upper lung predominant paraseptal and some scatteredcentrilobular emphysema. The horizontal fissure on the right isincomplete medially. Few scattered calcified granulomas with no new ordeveloping suspicious pulmonary nodule. Airways: Right lower lobe mucous plug, otherwise unremarkable. Pleura: No pleural effusion, thickening, or pneumothorax. Upper abdomen: No abnormality in the visualized upper abdominal structures, within thelimitations of examination technique. Chest wall and bones: Lower cervical spine anterior cortical plate and screws partiallyvisualized. Mild multilevel disc degeneration, normal thoracic vertebralbody heights. IMPRESSION: Impression: Very mild upper lung emphysema with no new or developing suspiciouspulmonary nodule. Lung-RADS Category 1: Negative- less than 1% probability of malignancy. Lung-RADS Category Description 1: Continue annual screening with CT Lung Screening in 12 months. Findings under this category can include: - No lung nodules or nodule(s) with benign calcification pattern. Modifier: No clinically significant or potentially significant findings. Schedule lung cancer screening CT/follow-up CT: 05/19/2024 ----- ----- This report uses Lung RADS version 2022 If this radiology report contains a blank impression section, it is anincomplete radiology report. Please contact the interpreting radiologistor applicable radiology division as soon as possible to obtain thecompleted interpretation. Workstation ID: [id number] Up-to-date CT equipment and radiation dose reduction techniques wereemployed. CTDIvol: 2.1 mGy. DLP: 72 mGy-cm. us Johnny Frazier MD IMAGING[facility] Final Result * EGD (UPPER GI ENDOSCOPY) (09/22/2022) us Zenobia Oro MD PROCEDURES Final Resul t * COMPREHENSIVE EYE EXAM (04/27/2022) us Unknown Provider MINOR PROCEDURE Final Result * COLONOSCOPY (07/08/2021) us Nimco Muñoz MD PROCEDURES Final R esult * EKG-TO BE READ & BILLED BY ADULT OR PEDIATRIC CARDIOLOGY (12/03/2020 10:51 AM EST) VENTRICULAR RATE 71 BPM MUS E EKG SYSTEM ATRIAL RATE 71 BPM MUSE EKG SYSTEM P-R INTERVAL 204 ms MUSE EK G SYSTEM QRS DURATION 76 ms MUSE EK G SYSTEM QT 384 ms MUSE EKG SYSTEM QTC 417 ms MUSE EKG SYSTEM P AXIS 32 degrees MUSE EKG SYSTEM R AXIS 8 degrees MUSE EKG SYSTEM T AXIS 25 degrees MUSE EKG SYSTEM EKG INTERPRETATION Normal sinus rhythm Normal ECG No previous ECGs available Confirmed by RASHMI PRINGLE ([id number]) on 12/03/2020 11:04:37 PM MUSE EKG SYSTEM 12/03/2020 10:5 1 AM EST 12/03/2020 11:04 PM EST us Johnny Izquierdo MD CARDIOVASCULAR-WITH INBSKT RT G Final Result MUSE EKG SYSTEM * [facility] FPGS PAP AND HR HPV DNA (11/24/2016 2:42 PM EST) Clinical information Postmenopausal [facility] Date last menstrual period PM [facility] Date of previous PAP smear NONE GIVEN [facility] Date of previous biopsy NONE GIVEN [facility] Specimen source (Cvx/Vag) Vagina, Cervix, Endocervix [facility] Statement of Adequacy (Cvx/Vag) Satisfactory for evaluation. Endocervical/mccauley sformation zone component present. [facility] Cytology, Pap Smear Negative for intraepithelial lesion or malignancy. [facility] Cytology study comment (Cvx/Vag) This Pap test has been evaluated with computer assisted technology. [facility] Communication Skills Instructor (Cvx/Vag) RMM, CT(ASCP) CT screening location: [facility] [place] [address] [employer] HPV MRNA E6/E7 Not Detected NOT DETECTED [facility] Comment: This test was performed using the APTIMA HPV Assay ([employer] This assay detects E6/E7 viral messenger RNA (mRNA) from 14 high-risk HPV types (16,18,31,33,35,39,45,51,52,56,58,59,66,68). The analytical performance characteristics of this assay, when used to test SurePath specimens, have been determined by [employer] 11/24/2016 2:42 PM EST 11/24/2016 10:53 PM EST Narrative Resulting Agency Comment [id number] us Mitchellpatria Sarahdomingo YIN PATHOLOGY-INTERFACED Final Result Performing Organization Address City/State/[facility] de Phone Number [facility] [address] [place] [address] * DXA BONE DENSITY STUDY AXIAL (LSSPINE, HIP) FC (09/09/2011 2:28 PM EST) Anatomical Region Laterality Modality BONE DENSITY 09/12/2011 10:2 3 AM EST Narrative 09/12/2011 10:23 AM EST DUAL ENERGY X-RAY ABSORPTIOMETRY (DXA) SCAN DXA MODEL: CME in fast ??scan mode FRAX RISK FACTORS: The patient reports maternal history of hip fracture and current cigarette smoking. TREATMENT: The patient reports calcium 600 mg with vitamin D daily. RESULTS: Lumbar Spine L1-L4: 0.967 g/cm2, T-score -0.7, Z-score 0.7 Right ??Femoral Neck: 0.712 g/sq cm2, T-score -1.2, Z-score 0.0 Right Total ??Hip: 0.790 g/cm2, T-score -1.2, Z-score -0.3 LIMITATIONS: Degenerative changes appear to be present in the lumbar spine which may cause an artifactual increase in BMD. DIAGNOSIS: Low bone mass (osteopenia) FRAX 10-year Fracture Risk: ??major osteoporotic fracture 14 % and hip fracture 0.8 %. RECOMMENDATIONS: This patient's FRAX 10-year fracture risk is in the range that pharmacologic therapy is usually not recommended, however clinical correlation is advised (see below). Continue appropriate dosages of calcium and vitamin D as necessary to meet recommended daily requirements. Weight bearing exercise and resistive weight training may also be helpful if clinically appropriate. Avoidance of tobacco and excessive alcohol is recommended. FOLLOWUP: Approximately 3 to 5 years ??or as clinically indicated. FRAX GENERAL INFORMATION: The fracture risk assessment tool (FRAX) was developed by the WHO (adapted to [place] epidemiological data) to help the clinician make treatment decisions in postmenopausal women and men aged 50 or older who have low bone mass. As this patient meets the NOF/ISCD criteria, a FRAX calculation was performed using FRAX Version [place] 3.00. According to the 2010 NOF Clinician's Guide, FDA approved medical therapy should be considered in postmenopausal women and men age 50 or older with a 10-year probability of a major osteoporosis-related fracture of 20% or higher or a 10-year probability of a hip fracture of 3% or higher. ??A clinician's judgment and/or patient preferences may indicate treatment for people with 10-year fracture probabilities above or below these levels. Refer to http://nof.org/professionals/clinical-guidelines or http://www.shef.ac.uk/FRAX/ for full details. Procedure Note Francesco Atwood MD - 09/12/2011 DUAL ENERGY X-RAY ABSORPTIOMETRY (DXA) SCAN DXA MODEL: CME in fast scan mode FRAX RISK FACTORS: The patient reports maternal history of hip fracture and current cigarette smoking. TREATMENT: The patient reports calcium 600 mg with vitamin D daily. RESULTS: Lumbar Spine L1-L4: 0.967 g/cm2, T-score -0.7, Z-score 0.7 Right Femoral Neck: 0.712 g/sq cm2, T-score -1.2, Z-score 0.0 Right Total Hip: 0.790 g/cm2, T-score -1.2, Z-score -0.3 LIMITATIONS: Degenerative changes appear to be present in the lumbar spine which may cause an artifactual increase in BMD. DIAGNOSIS: Low bone mass (osteopenia) FRAX 10-year Fracture Risk: major osteoporotic fracture 14 % and hip fracture 0.8 %. RECOMMENDATIONS: This patient's FRAX 10-year fracture risk is in the range that pharmacologic therapy is usually not recommended, however clinical correlation is advised (see below). Continue appropriate dosages of calcium and vitamin D as necessary to meet recommended daily requirements. Weight bearing exercise and resistive weight training may also be helpful if clinically appropriate. Avoidance of tobacco and excessive alcohol is recommended. FOLLOWUP: Approximately 3 to 5 years or as clinically indicated. FRAX GENERAL INFORMATION: The fracture risk assessment tool (FRAX) was developed by the WHO (adapted to [place] epidemiological data) to help the clinician make treatment decisions in postmenopausal women and men aged 50 or older who have low bone mass. As this patient meets the NOF/ISCD criteria, a FRAX calculation was performed using FRAX Version US 3.00. According to the 2010 NOF Clinician's Guide, FDA approved medical therapy should be considered in postmenopausal women and men age 50 or older with a 10-year probability of a major osteoporosis-related fracture of 20% or higher or a 10-year probability of a hip fracture of 3% or higher. A clinician's judgment and/or patient preferences may indicate treatment for people with 10-year fracture probabilities above or below these levels. Refer to http://nof.org/professionals/clinical-guidelines or http://www.shef.ac.uk/FRAX/ for full details. Johnny Izquierdo MD IMG DEXA IMAGING Final Result from Last 3 Months or Most Recently Relevant to Health Maintenance Insurance * Guarantor: Tatum Lopez Account Type Relation to Patient Date of Phone Billing Address Personal/Family Self 1950 [address] [place] [id number] [employer] CLAIMS-SUPPLEMENTAL MEDICARE ACO CAP REACH * Guarantor: TATUM LOPEZ Account Type Relation to Patient Date of Phone Billing Address Personal/Family 1950 [address] [place] [id number] [employer] CLAIMS-SUPPLEMENTAL MEDICARE ACO CAP REACH * Guarantor: TATUM LOPEZ Account Type Relation to Patient Date of Phone Billing Address Personal/Family [address] [facility] [address] [place] [address] [employer] CLAIMS-SUPPLEMENTAL MEDICARE ACO CAP REACH * Guarantor: Tatum Lopez Account Type Relation to Patient Date of Phone Billing Address [employer] Self 1950 [address] [facility] [place] [id number] * Guarantor: MANAGEMENT OF TRANSPORTION Account Type Relation to Patient Date of Phone Billing Address Occupational [employer] [address] [place] [id number] Advance Directives Documents on File Type Date Recorded Patient Caterer'S Aide Expl anation Advance Directives and Living Will 05/15/2024 Care Teams Director Cardiology Relationship Specialty Start Date End Date Johnny Frazier MD [address] [facility] [place] [address] PCP - General Family Medicine 04/22/22
--- OUTSIDE RECORDS SUMMARY | 2025-01-21 18:19 | XMS_ITS | Encounter Summary ---
Author Organization [facility] Address [address] [place] [address] Care Team Providers Care Financial Services Agent Name Role Phone Johnny Frazier MD Primary Care Provider [phone] Reason for Visit * Reason Comments Results MRI Head Encounter Details Date Type Department Care Team ([facility] Contact Info) Description 12/25/2024 Telephone [facility] [address] [place] [phone] Siomara Li MD [address] [place] [address] Results (MRI Head) Social History Tobacco Use Types Packs/Day Years [...] encounter Miscellaneous Notes * Telephone Encounter - Abby Carlton - 12/26/2024 3:23 PM EST Tarah called back- aware of appt * Telephone Encounter - Abby Carlton - 12/25/2024 11:22 AM EST LMOM for Dtr Tarah ralph reached out 3x to book MRI Head/Brain W/O 02/12/25 at 1:00pm at [facility] documented in this encounter Plan of Treatment Upcoming Encounters Date Type Department Care Team (Latest Contact Info) Description 02/07/2025 9:25 AM EDT Office Visit [facility] [address] [place] [phone] Siomara Li MD [address] [place] [phone] Return in about 3 months (around 03/12/2025). 05/12/2025 12:45 PM EDT CPE - Comprehensive Physical Exam [facility] [address] [place] [phone] Tiffanie Rebolledo, [employer] [address] [place] [address] Last CPE: Not Found 06/11/2025 11:05 AM EDT Office Visit [facility] [address] [place] [phone] Siomara Li MD [address] [place] [phone] Keep this appt and Dr Britt can [...] on filedocumented in this encounter Care Teams Financial Services Agent Relationship Specialty Start Date End Date Johnny Frazier MD [address] [facility] [place] [address] PCP - General Family Medicine 04/22/22 documented as of this encounter
--- OUTSIDE RECORDS SUMMARY | 2025-01-21 18:19 | XMS_ITS | Encounter Summary ---
Author Organization [facility] Address [address] [place] [address] Care Team Providers Care Boat Outfitting Supervisor Name Role Phone Johnny Frazier MD Primary Care Provider [phone] Encounter Details Date Type Department Care Team (Late st Contact Info) Description 12/03/2024 Orders Only [facility] [address] [place] [phone] Chelo Sims, QUALITY ASSURANCE MONITOR BODY [address] [place] [address] Social History Tobacco Use Types Packs/Day Years [...] Description 02/07/2025 9:25 AM EDT Office Visit [facility] [address] [place] [phone] Siomara Li MD [address] [place] [phone] Return in about 3 months (around 03/12/2025). 05/12/2025 12:45 PM EDT CPE - Comprehensive Physical Exam [facility] [address] [place] [phone] Tiffanie Rebolledo, QUALITY ASSURANCE MONITOR BODY [address] [place] [address] Last CPE: Not Found 06/11/2025 11:05 AM EDT Office Visit [facility] [address] [place] [phone] Siomara Li MD [address] [place] [phone] Keep this appt and Dr Britt can [...] Procedure Name Priority Date/Time Associated Diagnosis Comments LACTATE DEHYDROGENASE (LDH), SERUM Routine 12/03/2024 10:29 AM EST Unintentional weight loss HEPATIC FUNCTION PANEL (ALT,AST,ALK PH,BILI'S,TP,ALB) Routine 12/03/2024 10:29 AM EST Unintentional weight loss documented in this encounter Results * Due to [place] state law, this organization might not be sharing negative HIV tests. * HEPATIC FUNCTION PANEL (ALT,AST,ALK PH,BILI'S,TP,ALB) (12/03/2024 10:29 AM EST) Protein Total (Serum) 7.2 6.1 - 8.1 [...] 11:40 PM EST Narrative Resulting Agency Comment [id number] Chelo Sims NP LABORATORY Final Result Performing Organization Address City/[facility] Co de Phone Number [facility] [address] [place] [address] * LACTATE DEHYDROGENASE (LDH), SERUM (12/03/2024 10:29 AM EST) Lactate dehydrogenase 141 120 - 250 U/L [facility] 12/03/2024 10:2 9 AM EST 12/03/2024 11:40 PM EST Narrative Resulting Agency Comment [id number] Chelo Sims NP LABORATORY Final Result Performing Organization Address City/[facility] Co de Phone Number [facility] [address] [place] [address] documented in this encounter Visit Diagnoses Diagnosis Unintentional weight loss Loss of weight documented in this encounter Care Teams Boat Outfitting Supervisor Relationship Specialty Start Date End Date Johnny Frazier MD [address] [facility] [place] [address] PCP - General Family Medicine 04/22/22 documented as of this encounter
--- OUTSIDE RECORDS SUMMARY | 2025-01-21 18:19 | XMS_ITS | Encounter Summary ---
Author Organization [facility] Address [address] [place] [address] Care Team Providers Care Telecommunications Administrator Name Role Phone Johnny Frazier MD Primary Care Provider [phone] Encounter Details Date Type Department Care Team (Late st Contact Info) Description 01/20/2025 ER [facility]/[address] [address] [facility], Unknown Provider Social History Tobacco Use Types [...] as of this encounter ED Notes * [facility], Unknown Provider - 01/20/2025 3:37 PM EDT ED Continuation of Care by Hawk Coleman MD at 01/20/2025 2:50 PM Author: Hawk Coleman MD Service: Emergency Medicine Author Type: Physician Filed: 01/20/2025 3:37 PM Date of Service: 01/20/2025 2:50 PM Status: Signed Customer Service Manager: Hawk Coleman MD (Physician) ED Continuation of Care Tatum Fine : 1950 CSN: [id number] 2:50 PM 01/20/25 I assumed care of this patient from the previous ED provider, Dr. Johnny Md. Patient here with behavioral health concerns. Please see the documentation from previous providers and ED course below for full clinical course and any acute events that occurred during my shift. ED Course ED Course as of 01/20/25 1451 Mon Jan 20, 2025 1042 Discussed w [facility], patient more psychotic than baseline, low risk SI, cont S12/IPBS [PL] 1450 [facility] requesting additional labs to expand patient's surgery. These have been ordered [PL] ED Course User Index [PL] Hawk Coleman MD [facility] Hawk Coleman MD, PhD Department of Emergency Medicine [facility] This note was completed with the assistance of voice recognition software. Although it has been reviewed for errors, please excuse any typos or inaccurate word replacements. * [facility], Unknown Provider - 01/20/2025 4:06 AM EDT ED Continuation of Care by Zandra Turner MD at 01/20/2025 4:06 AM Author: Zandra Turner MD Service: Emergency Medicine Author Type: Physician Filed: 01/20/2025 4:06 AM Date of Service: 01/20/2025 4:06 AM Status: Signed Customer Service Manager: Zandra Turner MD (Physician) ED Continuation of Care 01/20/25 4:06 AM Sign out from Dr. Vance Guardado Md Patient under section 12, awaiting IPBS. MDM Tatum Fine : 1950 CSN: [id number] documented in this encounter Plan of Treatment Upcoming Encounters Date Type Department Care Team (Latest Contact Info) Description 02/07/2025 9:25 AM EDT Office Visit [facility] [address] [place] [phone] Siomara Li MD [address] [place] [address] Return in about 3 months (around 03/12/2025). 05/12/2025 12:45 PM EDT CPE - Comprehensive Physical Exam [facility] [address] [place] [phone] Tiffanie Rebolledo, LANDSCAPING SUPERVISOR [address] [place] [address] Last CPE: Not Found 06/11/2025 11:05 AM EDT Office Visit [facility] [address] [place] [phone] Siomara Li MD [address] [place] [address] Keep this appt and Dr Britt can discuss at the January visit keep or move out Pending Results Name Type Priority Associated Diagnoses Date /Time URINE CULTURE, ROUTINE Lab Routine 4:37 PM EDT documented as of this encounter [...] of this encounter Procedures * Due to [place] state law, this organization might not be sharing negative HIV tests. Procedure Name Priority Date/Time Associated Diagnosis Comments DRUGS OF ABUSE SCREEN, URINE Routine 01/20/2025 4:37 PM EDT MICROSCOPIC URINALYSIS ONLY Routine 01/20/2025 4:37 PM EDT URINALYSIS W/REFLEX TO MICROSCOPIC & CULTURE Routine 01/20/2025 4:37 PM EDT URINE CULTURE, ROUTINE Routine 01/20/2025 4:37 PM EDT CBC Routine 01/20/2025 2:49 PM EDT TSH REFLEX FREE T4 Routine 01/20/2025 2: 49 PM EDT BASIC METABOLIC PANEL Routine 01/20/2025 2:49 PM EDT documented in this encounter Results * Due to [facility] law, this organization might not be sharing negative HIV tests. * DRUGS OF ABUSE SCREEN, URINE (01/20/2025 4:37 PM EDT) Amphetamines (Urine) Negative Negative [facility] Comment: Detection limit of 1000 ng/mL of d-Methamphetamine. Drug results are to be used only for medical purposes. ??Unconfirmed screening results must not be used for non-medical purposes. Barbiturates (Urine) Negative Negative [facility] Comment: Detection limit of 200 ng/mL of Secobarbital. Drug results are to be used only for medical purposes. ??Unconfirmed screening results must not be used for non-medical purposes. Benzodiazepines (Urine) Negative Negative [facility] Comment: Detection limit of 200 ng/mL of Nordiazepam. Drug results are to be used only for medical purposes. ??Unconfirmed screening results must not be used for non-medical purposes. BUPRENORPHINE Negative Negative [facility] Comment: Detection limit of 10 ng/mL of norbuprenorphine. Drug results are to be used only for medical purposes. ??Unconfirmed screening results must not be used for non-medical purposes. Benzoylecgonine (Cocaine Metabolite) (Urine) Negative Negative [facility] Comment: Detection limit of 300 ng/mL of Benzoylecgonine. Drug results are to be used only for medical purposes. ??Unconfirmed screening results must not be used for non-medical purposes. Cannabinoids (Urine) Negative Negative [facility] Comment: Detection limit of 50 ng/mL of 39-Kea-uqvyc-9-JAW-1-carboxylic acid. Drug results are to be used only for medical purposes. ??Unconfirmed screening results must not be used for non-medical purposes. Methadone (Urine) Negative Negative [facility] Comment: Detection limit of 300 ng/mL of Methadone. Drug results are to be used only for medical purposes. ??Unconfirmed screening results must not be used for non-medical purposes. Oxycodone (Urine) Negative Negative [facility] Comment: Detection limit of 100 ng/mL of Oxycodone. Drug results are to be used only for medical purposes. ??Unconfirmed screening results must not be used for non-medical purposes. Opiates (Urine) Negative Negative [facility] Comment: Detection limit of 300 ng/mL of Morphine. Drug results are to be used only for medical purposes. ??Unconfirmed screening results must not be used for non-medical purposes. FENTANYL SCREEN, URINE Negative Negative [facility] Comment: Detection limit of 5 ng/mL of norfentanyl. Drug results are to be used only for medical purposes. ??Unconfirmed screening results must not be used for non-medical purposes. 01/20/2025 4:37 PM EDT us Unknown Provider [facility] LABORATORY Final Resu lt [facility] [employer] [address] [place] [address] * (ABNORMAL) MICROSCOPIC URINALYSIS ONLY (01/20/2025 4:37 PM EDT) WBC (Urine) 20-30(A) 0-2, None Seen /HPF [facility] RBC (Urine Sed) None Seen 0-2, None Seen /HPF [facility] Bacteria (Urine) 2+(A) None Seen /HPF [facility] Epithelial cells.squamous (Urine sed) Many /HPF [facility] Hyaline casts (Urine sed) 20-30 /LPF [facility] 01/20/2025 4:37 PM EDT us Unknown Provider [facility] LABORATORY Final Resu lt Performing Organization Address [facility]/ZIP Co de Phone Number [facility] [employer] [address] [place] [address] * (ABNORMAL) URINALYSIS W/REFLEX TO MICROSCOPIC & CULTURE (01/20/2025 4:37 PM EDT) Color (Urine) Yellow Yellow [facility] Clarity (Urine) Slightly Cloudy(A) Clear [facility] Specific gravity (Urine) 1.020 1.005 - 1.030 [facility] pH (Urine) 5.5 5.0 - 8.0 [facility] Protein (Urine) Trace(A) Negative mg/dL [facility] Glucose (Urine) Negative Negative mg/dL [facility] Ketones (Urine) Negative Negative mg/dL [facility] Bilirubin (Urine) Negative Negative [facility] Hemoglobin (Urine) Negative Negative [facility] Nitrite (Urine) Negative Negative [facility] Urobilinogen (Urine) 0.2 0.2, 1.0 E.U./dL [facility] Leukocyte esterase (Urine) Moderate(A) Negative [facility] 01/20/2025 4:37 PM EDT Narrative [facility] - 01/20/2025 5:24 PM EDT Some urinalysis results will not meet the criteria for reflex urine culture although certain urine values may be abnormal. ??Additional testing can be ordered by the provider if clinically warranted. us Unknown Provider [facility] LABORATORY Final Resu lt Performing Organization Address [facility]/ZIP Co de Phone Number [facility] [employer] [address] [place] [address] * TSH REFLEX FREE T4 (01/20/2025 2:49 PM EDT) TSH 0.733 0.280 - 3.890 uIU/mL [facility] Comment: Females: 1st trimester ? 0.150-4.000 ?IU/mL 2nd trimester ?? 0.310-4.170 ???IU/mL 3rd trimester ?0.380-4.150 ???IU/mL 01/20/2025 2:49 PM EDT us Unknown Provider [facility] LABORATORY Final Resu lt [facility] [employer] [address] [place] [address] * (ABNORMAL) BASIC METABOLIC PANEL (01/20/2025 2:49 PM EDT) Sodium 143 135 - 145 mmol/L [facility] Potassium 4.7 3.5 - 5.3 mmol/L [facility] Chloride 104 98 - 107 mmol/L [facility] Carbon dioxide 25 22 - 32 mmol/L [facility] Urea Nitrogen Blood (BUN) 17 7 - 23 mg/dL [facility] Creatinine 1.08 0.50 - 1.20 mg/dL [facility] Glucose 96 65 - 99 mg/dL [facility] Calcium 9.7 8.6 - 10.5 mg/dL [facility] Anion gap 14 5 - 15 [facility] EGFR 54(L) >=60 mL/min/1.7 3m2 [facility] Comment: The estimated glomerular filtration rate [...] 01/20/2025 2:49 PM EDT us Unknown Provider [facility] LABORATORY Final Resu lt [employer] [address] [place] [address] * CBC (01/20/2025 2:49 PM EDT) WBC 6.2 3.8 - 10.8 10*3/uL [facility] RBC 4.76 3.80 - 5.10 10*6/uL [facility] Hemoglobin 14.6 11.7 - 15.5 g/dL [facility] Hematocrit 42.9 35.0 - 45.0 % [facility] MCV 90.1 80.0 - 100.0 fL [facility] MCH 30.7 27.0 - 33.0 pg [facility] MCHC 34.0 32.0 - 36.0 g/dL [facility] RDW 13.0 11.0 - 15.0 % [facility] PLT 221 140 - 400 10*3/uL [facility] Platelet mean volume 11.5 7.5 - 12.5 fL [facility] 01/20/2025 2:49 PM EDT us Unknown Provider [facility] LABORATORY Final Resu lt [employer] [address] [place] [address] documented in this encounter Visit Diagnoses Not on filedocumented in this encounter Care Teams Telecommunications Administrator Relationship Specialty Start Date End Date Johnny Frazier MD [address] [facility] [place] [address] PCP - General Family Medicine 04/22/22 documented as of this encounter
--- OUTSIDE RECORDS SUMMARY | 2025-01-21 18:20 | XMS_ITS | Encounter Summary ---
Author Organization [facility] Address [address] [place] [address] Care Team Providers Care Energy Project Manager Name Role Phone Johnny Izquierdo MD Primary Care Provider [phone] Johnny Frazier MD Primary Care Provider [phone] Encounter Details Date Type Department Care Team (Late st Contact Info) Description 01/18/2021 Orders Only [facility] [address] [place] [address] Johnny Izquierdo MD [address] [place] [address] Social History Tobacco Use Types Packs/Day Years [...] Miscellaneous Notes * Result Encounter Note - Chasity Perera CMA - 01/18/2021 12:01 PM EDT Please review and advise. Pt does not have any upcoming appointments. No letter generated. * Result Encounter Note - Johnny Izquierdo MD - 01/18/2021 12:01 PM EDT Cholesterol higher but other labs stable documented in this encounter Plan of Treatment Upcoming Encounters Date Type Department Care Team (Latest Contact Info) Description 02/07/2025 9:25 AM EDT Office Visit [facility] [address] [place] [phone] Siomara Li MD [address] [place] [address] Return in about 3 months (around 03/12/2025). 05/12/2025 12:45 PM EDT CPE - Comprehensive Physical Exam [address] [phone] Tiffanie Rebolledo, SOPHIE [address] [place] [address] Last CPE: Not Found 06/11/2025 11:05 AM EDT Office Visit [facility] [address] [place] [phone] Siomara Li MD [address] [place] [phone] Keep this appt and Dr Britt can [...] this encounter Procedures * Due to [place] [employer] law, this organization might not be sharing negative HIV tests. Procedure Name Priority Date/Time Associated Diagnosis Comments HEMOGLOBIN A1C Routine 01/18/2021 12:01 PM EDT Diabetes mellitus without complication ALBUMIN (MICROALBUMIN), RANDOM URINE, WITH CREATININE Routine 01/18/2021 12:01 PM EDT Diabetes mellitus without complication LIPID PANEL WITH REFLEX TO DIRECT LDL Routine 01/18/2021 12:01 PM EDT Diabetes mellitus without complication BASIC METABOLIC PANEL WITH (GFR) Routine 01/18/2021 12:01 PM EDT Diabetes mellitus without complication documented in this encounter Results * Due to [place] [employer] law, this organization might not be sharing negative HIV tests. * ALBUMIN (MICROALBUMIN), RANDOM URINE, WITH CREATININE (01/18/2021 12:01 PM EDT) Creatinine (Urine) 45 20 - 275 mg/dL [facility] Albumin (Urine) 0.3 mg/dL [facility] Comment: Reference Range Not established Albumin/Creatinine (Urine) 7 <30 mcg/mg creat [facility] Comment: The ADA defines abnormalities in albumin excretion as follows: Category ? Result (mcg/mg creatinine) Normal ?<30 Microalbuminuria ? 30-299 Clinical albuminuria ?? > OR = 300 The ADA recommends that at least two of three specimens collected within a 3-6 month period be abnormal before considering a patient to be within a diagnostic category. 01/18/2021 12:0 1 PM EDT 01/18/2021 1:30 PM EDT Narrative Resulting Agency Comment [id number] us Johnny Izquierdo MD LABORATORY Final Result [facility] [address] [place] [address] * (ABNORMAL) LIPID PANEL WITH REFLEX TO DIRECT LDL (01/18/2021 12:01 PM EDT) Cholesterol 186 <200 mg/dL [facility] HDL Cholesterol 31(L) > OR = 50 mg/dL [facility] Triglyceride 229(H) <150 mg/dL [facility] Comment: If a non-fasting specimen was collected, consider repeat triglyceride testing on a fasting specimen if clinically indicated. Deloris et al. J. of Clin. Lipidol. 2015;9:129-169. LDL Cholesterol 120(H) mg/dL (calc) [facility] Comment: Reference range: [...] LDL-C. Bobby SS et al. HECTOR. 2013;310(19): 5246-4797 (http://education.Collax/faq/HKC210) CHOL/HDL Ratio 6.0(H) <5.0 (calc) [facility] Cholesterol Non-HDL 155(H) <130 mg/dL (calc) [facility] Comment: For patients with diabetes plus 1 major ASCVD risk factor, treating to a non-HDL-C goal of <100 mg/dL (LDL-C of <70 mg/dL) is considered a therapeutic option. 01/18/2021 12:0 1 PM EDT 01/18/2021 1:30 PM EDT Narrative Resulting Agency Comment [id number] us Johnny Izquierdo MD LABORATORY Final Result [facility] [address] [place] [address] * (ABNORMAL) BASIC METABOLIC PANEL WITH (GFR) (01/18/2021 12:01 PM EDT) Glucose 125(H) 65 - 99 mg/dL [facility] Comment: ? Fasting reference interval For someone without known diabetes, a glucose value between 100 and 125 mg/dL is consistent with prediabetes and should be confirmed with a follow-up test. Urea Nitrogen Blood (BUN) 13 7 - 25 mg/dL [facility] Creatinine 0.89 0.50 - 0.99 mg/dL [facility] Comment: For patients >49 years of age, the reference limit for Creatinine is approximately 13% higher for people identified as -Burkinan. EGFR 66 > OR = 60 mL/min/1 .73m2 [facility] GFR () 77 > OR = 60 mL/min/1 .73m2 [facility] BUN/Creatinine Ratio NOT APPLICABLE 6 - 22 (calc) [facility] Sodium 139 135 - 146 mmol/L [facility] Potassium 4.7 3.5 - 5.3 mmol/L [facility] Chloride 102 98 - 110 mmol/L [facility] Carbon dioxide 31 20 - 32 mmol/L [facility] Calcium 9.8 8.6 - 10.4 mg/dL [facility] 01/18/2021 12:0 1 PM EDT 01/18/2021 1:30 PM EDT Narrative [facility] - 01/18/2021 11:08 PM EDT Please note that this estimated [...] needs for GFR calculation. Resulting Agency Comment [id number] Johnny Izquierdo MD LABORATORY Final Result [facility] [address] [place] [address] * (ABNORMAL) HEMOGLOBIN A1C (01/18/2021 12:01 PM EDT) Hemoglobin A1C 6.6(H) <5.7 % of [...] Average Glucose 158 mg/dL (calc) [facility] 01/18/2021 12:0 1 PM EDT 01/18/2021 1:30 PM EDT Narrative Resulting Agency Comment [id number] Johnny Izquierdo MD LABORATORY Final Result Performing Organization Address City/State/[facility] Co de Phone Number [facility] [address] [place] [address] documented in this encounter Visit Diagnoses Diagnosis Diabetes mellitus without complication (HCC) Type II or unspecified type diabetes mellitus without mention of complication, not stated as uncontrolled documented in this encounter Care Teams Energy Project Manager Relationship Specialty Start Date End Date Johnny Izquierdo MD [address] [place] [address] PCP - General 01/14/06 04/21/22 Johnny Frazier MD [address] [place] [address] PCP - General Family Medicine 04/22/22 documented as of this encounter
--- OUTSIDE RECORDS SUMMARY | 2025-01-21 18:20 | XMS_ITS | Encounter Summary ---
Author Organization [facility] Address [address] [place] [address] Care Team Providers Care Operations Inspector Name Role Phone Johnny Izquierdo MD Primary Care Provider [phone] Johnny Frazier MD Primary Care Provider [phone] Encounter Details Date Type Department Care Team (Late st Contact Info) Description 07/21/2021 Orders Only [facility] [address] [place] [phone] Johnny Izquierdo MD [address] [place], [place] [phone] Social History Tobacco Use Types Packs/Day Years [...] Miscellaneous Notes * Result Encounter Note - Bertha Babin - 07/21/2021 11:01 AM EDT Please review and advise. Pt does not have any upcoming appointments. No letter generated. * Result Encounter Note - Johnny Izquierdo MD - 07/21/2021 11:01 AM EDT Normal lab letter sent documented in this encounter Plan of Treatment Upcoming Encounters Date Type Department Care Team (Latest Contact Info) Description 02/07/2025 9:25 AM EDT Office Visit [facility] [address] [place] [phone] Siomara Li MD [address] [place] [address] Return in about 3 months (around 03/12/2025). 05/12/2025 12:45 PM EDT CPE - Comprehensive Physical Exam [facility] [address] [place] [address] Tiffanie Rebolledo, REMOTE SENSING SCIENTIST [address] [place] [address] Last CPE: Not Found 06/11/2025 11:05 AM EDT Office Visit [facility] [address] [place] [phone] Siomara Li MD [address] [place] [address] Keep this appt and Dr Britt can [...] Procedure Name Priority Date/Time Associated Diagnosis Comments THYROID CASCADING REFLEX Routine 07/21/2021 11:01 AM EDT Hypothyroidism (acquired) VENIPUNCTURE Routine 07/21/2021 11:01 AM EDT Controlled type 2 diabetes mellitus with stage 1 chronic kidney disease, without long-term current use of insulin documented in this encounter Results * Due to [place] [employer] law, this organization might not be sharing negative HIV tests. * THYROID CASCADING REFLEX (07/21/2021 11:01 AM EDT) TSH 1.08 0.40 - 4.50 mIU/L [facility] 07/21/2021 11:0 1 AM EDT 07/21/2021 12:43 PM EDT Narrative Resulting Agency Comment [id number] Johnny Izquierdo MD LABORATORY Final Result Performing Organization Address City/State/[facility] Co de Phone Number [facility] [address] [place] [address] * (ABNORMAL) BASIC METABOLIC PANEL WITH (GFR) (07/21/2021 11:01 AM EDT) Glucose 100(H) 65 - 99 mg/dL [facility] Comment: ? Fasting reference interval For someone without known diabetes, a glucose value between 100 and 125 mg/dL is consistent with prediabetes and should be confirmed with a follow-up test. Urea Nitrogen Blood (BUN) 14 7 - 25 mg/dL [facility] Creatinine 0.95 0.50 - 0.99 mg/dL [facility] Comment: For patients >49 years of age, the reference limit for Creatinine is approximately 13% higher for people identified as -Macanese. EGFR 61 > OR = 60 mL/min/1 .73m2 [facility] GFR () 71 > OR = 60 mL/min/1 .73m2 [facility] BUN/Creatinine Ratio NOT APPLICABLE 6 - 22 (calc) [facility] Sodium 137 135 - 146 mmol/L [facility] Potassium 4.6 3.5 - 5.3 mmol/L [facility] Chloride 100 98 - 110 mmol/L [facility] Carbon dioxide 27 20 - 32 mmol/L [facility] Calcium 9.9 8.6 - 10.4 mg/dL [facility] 07/21/2021 11:0 1 AM EDT 07/21/2021 12:43 PM EDT Narrative [facility] - 07/21/2021 7:26 PM EDT Please note that this estimated [...] needs for GFR calculation. Resulting Agency Comment [id number] Johnny Izquierdo MD LABORATORY Final Result [facility] [address] [place] [address] documented in this encounter Visit Diagnoses Diagnosis Controlled type 2 diabetes mellitus with stage 1 chronic kidney disease, without long-term current use of insulin (HCC) Hypothyroidism (acquired) Unspecified hypothyroidism documented in this encounter Care Teams Operations Inspector Relationship Specialty Start Date End Date Johnny Izquierdo MD [address] [place] [address] PCP - General 01/14/06 04/21/22 Johnny Frazier MD [address] [place] [address] PCP - General Family Medicine 04/22/22 documented as of this encounter
--- OUTSIDE RECORDS SUMMARY | 2025-01-21 18:20 | XMS_ITS | Encounter Summary ---
Author Organization [facility] Address [address] [place] [address] Care Team Providers Care Reproductive Healthcare Assistant Name Role Phone Johnny Izquierdo MD Primary Care Provider [phone] Johnny Frazier MD Primary Care Provider [phone] Encounter Details Date Type Department Care Team (Late st Contact Info) Description 08/30/2021 Orders Only [facility] [address] [place] [phone] Johnny Izquierdo MD [address] [place], [place] [phone] Social History Tobacco Use Types Packs/Day Years [...] Encounter Note - Chasity Perera CMA - 08/30/2021 11:41 AM EST . * Result Encounter Note - Ann Marie Ruffin RN - 08/30/2021 11:41 AM EST Pt is on Macrobid. documented in this encounter Plan of Treatment Upcoming Encounters Date Type Department Care Team (Latest Contact Info) Description 02/07/2025 9:25 AM EDT Office Visit [facility] [address] [place] [phone] Siomara Li MD [address] [place] [address] Return in about 3 months (around 03/12/2025). 05/12/2025 12:45 PM EDT CPE - Comprehensive Physical Exam [facility] [address] [place] [phone] Tiffanie Rebolledo, SOPHIE [address] [place] [address] Last CPE: Not Found 06/11/2025 11:05 AM EDT Office Visit [facility] [address] [place] [phone] Siomara Li MD [address] [place] [address] Keep this appt and Dr Britt can [...] of this encounter Procedures * Due to [place] state law, this organization might not be sharing negative HIV tests. Procedure Name Priority Date/Time Associated Diagnosis Comments CULTURE, URINE, ROUTINE Routine 08/30/2021 11:41 AM EST Urinary tract infection symptoms VENIPUNCTURE Routine 08/30/2021 11:41 AM EST Diabetic polyneuropathy associated with type 2 diabetes mellitus URINALYSIS, COMPLETE INCLUDES DIPSTICK AND MICROSCOPIC Routine 08/30/2021 11:41 AM EST Urinary tract infection symptoms documented in this encounter Results * Due to [place] state law, this organization might not be sharing negative HIV tests. * (ABNORMAL) CULTURE, URINE, ROUTINE (08/30/2021 11:41 AM EST) Bacteria culture (Urine) SEE NOTE(A) [facility] Comment: ??CULTURE, URINE, ROUTINE ??Micro Number: ?[id number] ??Test Status: ? Final ??Specimen Source: ?? Urine, clean catch ??Specimen Quality: ??Adequate ??Result: ?10,000-49,000 CFU/mL of Escherichia coli ??COMMENT: ? Additional non-predominating organism(s) isolated. ? These organisms, commonly found on external and ? internal genitalia, are considered colonizers. No ? further testing performed. ?E.coli ?INT ?? GOOD ?? AMOX/CLAVULANATE ? S ? <=2 ?? AMPICILLIN ? S ? <=2 ?? AMP/SULBACTAM ?S ? <=2 ?? CEFAZOLIN ?NR ?<=4 2 ?? CEFEPIME ? S ? <=1 ?? CEFTRIAXONE ?S ? <=1 ?? CIPROFLOXACIN ?S ? <=0.25 ?? ERTAPENEM ?S ? <=0.5 ?? GENTAMICIN ? S ? <=1 ?? IMIPENEM ? S ? <=0.25 ?? LEVOFLOXACIN ? S ? <=0.12 ?? NITROFURANTOIN ? S ? <=16 ?? PIP/TAZOBACTAM ? S ? <=4 ?? TOBRAMYCIN ? S ? <=1 ?? TRIMETHOPRIM/SULFA ? S ? <=20 S=Susceptible ??I=Intermediate ??R=Resistant ??* = Not Tested NR = Not Reported ??NN = See Therapy Comments THERAPY COMMENTS ?Note 1: ?For infections other than uncomplicated UTI ?caused by E. coli, K. pneumoniae or P. mirabilis: ?Cefazolin is resistant if GOOD > or = 8 mcg/mL. ?(Distinguishing susceptible versus intermediate ?for isolates with GOOD < or = 4 mcg/mL requires ?additional testing.) ?Note 2: ?For uncomplicated UTI caused by E. coli, ?K. pneumoniae or P. mirabilis: Cefazolin is ?susceptible if GOOD <32 mcg/mL and predicts ?susceptible to the oral agents cefaclor, cefdinir, ?cefpodoxime, cefprozil, cefuroxime, cephalexin ?and loracarbef. 08/30/2021 11:4 1 AM EST 08/30/2021 12:48 PM EST Narrative Resulting Agency Comment [id number] Johnny Izquierdo MD LABORATORY Final Result Performing Organization Address [facility] Co de Phone Number [facility] [address] [place] [address] * (ABNORMAL) URINALYSIS, COMPLETE INCLUDES DIPSTICK AND MICROSCOPIC (08/30/2021 11:41 AM EST) Color (Urine) YELLOW YELLOW [facility] Appearance (Urine) CLOUDY(A) CLEAR [facility] Specific gravity (Urine) 1.017 1.001 - 1.035 [facility] pH (Urine) 6.0 5.0 - 8.0 [facility] Glucose (Urine) NEGATIVE NEGATIVE [facility] Bilirubin (Urine) NEGATIVE NEGATIVE [facility] Ketones (Urine) NEGATIVE NEGATIVE [facility] Hemoglobin (Urine) TRACE(A) NEGATIVE [facility] Protein (Urine) TRACE(A) NEGATIVE [facility] Nitrite (Urine) NEGATIVE NEGATIVE [facility] Leukocyte esterase (Urine) 3+(A) NEGATIVE [facility] WBC (Urine) > OR = 60(A) < OR = 5 /HPF [facility] RBC (Urine Sed) 3-10(A) < OR = 2 /HPF [facility] Epithelial cells.squamous (Urine sed) NONE SEEN < OR = 5 /HPF [facility] Bacteria (Urine) NONE SEEN NONE SEEN /HPF [facility] Hyaline casts (Urine sed) NONE SEEN NONE SEEN /LPF [facility] 08/30/2021 11:4 1 AM EST 08/30/2021 12:48 PM EST Narrative Resulting Agency Comment [id number] Johnny Izquierdo MD LAB SAME DAY RESULT Final Res ult Performing Organization Address [facility] Co de Phone Number [facility] [address] [place] [address] * (ABNORMAL) HEMOGLOBIN A1C (08/30/2021 11:41 AM EST) Hemoglobin A1C 7.0(H) <5.7 % of total Hgb [facility] [...] of diabetes for children. Estimated Average Glucose 172 mg/dL (calc) [facility] 08/30/2021 11:4 1 AM EST 08/30/2021 12:48 PM EST Narrative Resulting Agency Comment [id number] us Johnny Izquierdo MD LABORATORY Final Result Performing Organization Address City/State/[facility] Co de Phone Number [facility] [address] [place] [address] documented in this encounter Visit Diagnoses Diagnosis Diabetic polyneuropathy associated with type 2 diabetes mellitus (HCC) Urinary tract infection symptoms Other symptoms involving urinary system documented in this encounter Care Teams Reproductive Healthcare Assistant Relationship Specialty Start Date End Date Johnny Izquierdo MD [address] [place] [address] PCP - General 01/14/06 04/21/22 Johnny Frazier MD [address] [place] [address] PCP - General Family Medicine 04/22/22 documented as of this encounter
--- OUTSIDE RECORDS SUMMARY | 2025-01-21 18:20 | XMS_ITS | Encounter Summary ---
Author Organization [facility] Address [address] [place] [address] Care Team Providers Care Direct Support Worker Name Role Phone Johnny Izquierdo MD Primary Care Provider [phone] Johnny Frazier MD Primary Care Provider [phone] Encounter Details Date Type Department Care Team (Late st Contact Info) Description 01/31/2017 Orders Only [facility] [address] [place] [phone] Linda Dickson, SOPHIE Social History [...] as of this encounter Progress Notes * Linda Dickson - 02/01/2017 10:16 AM EDT Stable labs and EKG, ok for surgery documented in this encounter Plan of Treatment Upcoming Encounters Date Type Department Care Team (Latest Contact Info) Description 02/07/2025 9:25 AM EDT Office Visit [facility] [address] [place] [phone] Siomara Li MD [address] [place] [address] Return in about 3 months (around 03/12/2025). 05/12/2025 12:45 PM EDT CPE - Comprehensive Physical Exam [facility] [address] [place] [phone] Tiffanie Rebolledo, ADVERTISING PRODUCTION MANAGER [address] [place] [address] Last CPE: Not Found 06/11/2025 11:05 AM EDT Office Visit [facility] [address] [place] [phone] Siomara Li MD [address] [place] [address] Keep this appt and Dr Britt can [...] of this encounter Procedures * Due to [place] state law, this organization might not be sharing negative HIV tests. Procedure Name Priority Date/Time Associated Diagnosis Comments EKG-TO BE READ & BILLED BY ADULT OR PEDIATRIC CARDIOLOGY Routine 01/31/2017 10:43 AM EDT Type 2 diabetes mellitus without complication, with long-term current use of insulin CBC INCLUDES DIFFERENTIAL AND PLATELET COUNT Routine 01/31/2017 10:39 AM EDT Preoperative examination BASIC METABOLIC PANEL WITH (GFR) Routine 01/31/2017 10:39 AM EDT Preoperative examination documented in this encounter Results * Due to [place] state law, this organization might not be sharing negative HIV tests. * EKG-TO BE READ AND BILLED BY CARDIOLOGY (01/31/2017 10:43 AM EDT) Pathologist [facility] VENTRICULAR RATE 86 BPM MUS E EKG SYSTEM ATRIAL RATE 86 BPM MUSE EKG SYSTEM P-R INTERVAL 194 ms MUSE EK G SYSTEM QRS DURATION 80 ms MUSE EK G SYSTEM QT 348 ms MUSE EKG SYSTEM QTC 416 ms MUSE EKG SYSTEM P AXIS 68 degrees MUSE EKG SYSTEM R AXIS 10 degrees MUSE EKG SYSTEM T AXIS 51 degrees MUSE EKG SYSTEM EKG INTERPRETATION Normal sinus rhythm Normal ECG When compared with ECG of 10-MAY-2016 16:34, Vent. rate has increased BY ??34 BPM MUSE EKG SYSTEM 01/31/2017 10:4 3 AM EDT 01/31/2017 5:48 PM EDT Linda Dickson NP CARDIOVASCULAR-WITH INBSKT R TG Final Result MUSE EKG SYSTEM * (ABNORMAL) CBC INCLUDES DIFFERENTIAL AND PLATELET COUNT (01/31/2017 10:39 AM EDT) Pathologist [facility] WBC 6.4 3.8 - 10.8 Thousand/u L [facility] RBC 4.63 3.80 - 5.10 Million/uL [facility] Hemoglobin 14.3 11.7 - 15.5 g/dL [facility] Hematocrit 41.1 35.0 - 45.0 % [facility] MCV 88.8 80.0 - 100.0 fL [facility] MCH 30.9 27.0 - 33.0 pg [facility] MCHC 34.8 32.0 - 36.0 g/dL [facility] RDW 13.6 11.0 - 15.0 % [facility] PLT 139(L) 140 - 400 Thousand/u L [facility] MPV 11.2 7.5 - 12.5 fL [facility] Neutrophils # 3514 1500 - 7800 cells/uL [facility] Lymphocytes # 2208 850 - 3900 cells/uL [facility] Monocytes # 429 200 - 950 cells/uL [facility] Eosinophils # 96 15 - 500 cells/uL [facility] Basophils # 154 0 - 200 cells/uL [facility] Neutrophils % 54.9 % [facility] Lymphocytes % 34.5 % [facility] Monocytes % 6.7 % [facility] Eosinophils % 1.5 % [facility] Basophils % 2.4 % [facility] 01/31/2017 10:3 9 AM EDT 02/01/2017 4:28 AM EDT Linda Dickson NP LAB SAME DAY RESULT Final Re sult [facility] [address] [place] [address] * BASIC METABOLIC PANEL WITH (GFR) (01/31/2017 10:39 AM EDT) Pathologist [facility] Glucose 92 65 - 99 mg/dL [facility] Comment:Fasting reference in terval Urea Nitrogen Blood (BUN) 14 7 - 25 mg/dL [facility] Creatinine 0.86 0.50 - 0.99 mg/dL [facility] Comment: For patients >49 years of age, the reference limit for Creatinine is approximately 13% higher for people identified as -[place]. GFR 71 > OR = 60 mL/min/1 .73m2 [facility] GFR () 82 > OR = 60 mL/min/1 .73m2 [facility] BUN/Creatinine Ratio NOT APPLICABLE 6 - 22 (calc) [facility] Sodium 138 135 - 146 mmol/L [facility] Potassium 4.5 3.5 - 5.3 mmol/L [facility] Chloride 102 98 - 110 mmol/L [facility] Carbon dioxide 26 20 - 31 mmol/L [facility] Calcium 9.6 8.6 - 10.4 mg/dL [facility] 01/31/2017 10:3 9 AM EDT 02/01/2017 4:28 AM EDT Narrative [facility] - 02/01/2017 6:08 AM EDT Please note that this estimated [...] more precise needs for GFR calculation. us Linda Glavin ADVERTISING PRODUCTION MANAGER LABORATORY Final Result [facility] [address] [place] [address] documented in this encounter Visit Diagnoses Diagnosis Preoperative examination Preoperative examination, unspecified Type 2 diabetes mellitus without complication, with long-term current use of insulin (HCC) documented in this encounter Additional Health Concerns Infection Onset Date Last Indicated Resolved Time COVID-19 Rule-Out 09/12/2020 09/12/2020 12/07/2020 8:13 PM EST documented as of this encounter Care Teams Direct Support Worker Relationship Specialty Start Date End Date Johnny Izquierdo MD [address] [place] [address] PCP - General 01/14/06 04/21/22 Johnny Frazier MD [address] [place] [address] PCP - General Family Medicine 04/22/22 documented as of this encounter
--- OUTSIDE RECORDS SUMMARY | 2025-01-21 18:20 | XMS_ITS | Encounter Summary ---
Author Organization [facility] Address [address] [place] [address] Care Team Providers Care Guest Services Director Name Role Phone Johnny Izquierdo MD Primary Care Provider [phone] Johnny Frazier MD Primary Care Provider [phone] Encounter Details Date Type Department Care Team (Late st Contact Info) Description 10/21/2021 Orders Only [facility] [address] [place] [phone] Johnny Izquierdo MD [address] [place], [place] [phone] Social History Tobacco Use Types Packs/Day Years Used Date Smoking Tobacco: Former Cigarettes 1 52.8 0 07/19/1968 - 05/05/2021 Smokeless Tobacco: Never Alcohol Use Standard [...] Notes * Result Encounter Note - Johnny Izquierdo MD - 10/21/2021 10:50 AM EST Treated with macrobid documented in this encounter Plan of Treatment Upcoming Encounters Date Type Department Care Team (Latest Contact Info) Description 02/07/2025 9:25 AM EDT Office Visit [facility] [address] [place] [address] Siomara Li MD [address] [place] [address] Return in about 3 months (around 03/12/2025). 05/12/2025 12:45 PM EDT CPE - Comprehensive Physical Exam [facility] [address] [place] [address] Tiffanie Rebolledo, SOPHIE [address] [place] [address] Last CPE: Not Found 06/11/2025 11:05 AM EDT Office Visit [facility] [address] [place] [address] Siomara Li MD [address] [place] [address] Keep this appt and Dr Britt can [...] of this encounter Procedures * Due to [place] state law, this organization might not be sharing negative HIV tests. Procedure Name Priority Date/Time Associated Diagnosis Comments CULTURE, URINE, ROUTINE Routine 10/21/2021 10:50 AM EST Urinary tract infection symptoms URINALYSIS, MICROSCOPIC Routine 10/21/2021 10:50 AM EST Urinary tract infection symptoms URINALYSIS, DIP ONLY STAT (All results called to provider) 10/21/2021 10:50 AM EST Urinary tract infection symptoms documented in this encounter Results * Due to [place] state law, this organization might not be sharing negative HIV tests. * (ABNORMAL) URINALYSIS, DIP ONLY (ON-SITE) (10/21/2021 10:50 AM EST) Color (Urine) YELLOW YELLOW [facility] Appearance (Urine) SLIGHTLY CLOUDY(A) CLEAR [facility] Specific gravity (Urine) 1.015 1.001 - 1.035 [facility] pH (Urine) 6.0 5.0 - 8.0 [facility] Glucose (Urine) NEGATIVE NEGATIVE [facility] Bilirubin (Urine) NEGATIVE NEGATIVE [facility] Ketones (Urine) TRACE(A) NEGATIVE [facility] Hemoglobin (Urine) 2+(A) NEGATIVE [facility] Protein (Urine) 2+(A) NEGATIVE [facility] Nitrite (Urine) NEGATIVE NEGATIVE [facility] Leukocyte esterase (Urine) 2+(A) NEGATIVE [facility] Urine 10/21/2021 10:5 0 AM EST 10/21/2021 11:11 AM EST Narrative Resulting Agency Comment [id number] us Johnny Izquierdo MD LAB SAME DAY RESULT Final Res ult [facility] [address] [place] [address] * (ABNORMAL) URINALYSIS, MICROSCOPIC (10/21/2021 10:50 AM EST) WBC (Urine) PACKED(A) < OR = 5 /HPF [facility] RBC (Urine Sed) NONE SEEN < OR = 2 /HPF [facility] Epithelial cells.squamous (Urine sed) 0-5 < OR = 5 /HPF [facility] Bacteria (Urine) FEW(A) NONE SEEN /HPF [facility] Hyaline casts (Urine sed) NONE SEEN NONE SEEN /LPF [facility] Service comment 01 See Below [facility] Comment: This urine was analyzed for the presence of WBC, RBC, bacteria, casts, and other formed elements. Only those elements seen were reported. 10/21/2021 10:5 0 AM EST 10/21/2021 11:44 AM EST Narrative Resulting Agency Comment [id number] us Johnny Izquierdo MD LAB SAME DAY RESULT Final Res ult [facility] [address] [place] [address] * (ABNORMAL) CULTURE, URINE, ROUTINE (10/21/2021 10:50 AM EST) Bacteria culture (Urine) SEE NOTE(A) [facility] Comment: ??CULTURE, URINE, ROUTINE ??Micro Number: ?[id number] ??Test Status: ? Final ??Specimen Source: ?? Urine, clean catch ??Specimen Quality: ??Adequate ??Result: ?10,000-49,000 CFU/mL of Escherichia coli ??COMMENT: ? Additional non-predominating organism(s) isolated. ? These organisms, commonly found on external and ? internal genitalia, are considered colonizers. No ? further testing performed. ?E.coli ?INT ?? GOOD ?? AMOX/CLAVULANATE ? S ? <=2 ?? AMPICILLIN ? S ? 8 ?? AMP/SULBACTAM ?S ? <=2 ?? CEFAZOLIN [...] cefdinir, ?cefpodoxime, cefprozil, cefuroxime, cephalexin ?and loracarbef. 10/21/2021 10:5 0 AM EST 10/21/2021 11:44 AM EST Narrative Resulting Agency Comment [id number] us Johnny Izquierdo MD LABORATORY Final Result [facility] [address] [place] [address] documented in this encounter Visit Diagnoses Diagnosis Urinary tract infection symptoms Other symptoms involving urinary system documented in this encounter Care Teams Guest Services Director Relationship Specialty Start Date End Date Johnny Izquierdo MD [address] [place] [address] PCP - General 01/14/06 04/21/22 Johnny Frazier MD [address] [place] [address] PCP - General Family Medicine 04/22/22 documented as of this encounter
--- OUTSIDE RECORDS SUMMARY | 2025-01-21 18:20 | XMS_ITS | Encounter Summary ---
Author Organization [facility] Address [address] [place] [address] Care Team Providers Care Vice President Of Customer Service Name Role Phone Johnny Izquierdo MD Primary Care Provider [phone] Johnny Frazier MD Primary Care Provider [phone] Encounter Details Date Type Department Care Team (Late st Contact Info) Description 09/09/2015 Orders Only [facility] [address] [place] [phone] Erich Horvath MD Social History Tobacco Use Types Packs/Day Years [...] of this encounter Progress Notes * Linda Reynoso RN - 09/15/2015 9:33 AM ESTQuick Note: Urine culture negative Letter sent documented in this encounter Plan of Treatment Upcoming Encounters Date Type Department Care Team (Latest Contact Info) Description 02/07/2025 9:25 AM EDT Office Visit [facility] [address] [place] [phone] Siomara Li MD [address] [place] [address] Return in about 3 months (around 03/12/2025). 05/12/2025 12:45 PM EDT CPE - Comprehensive Physical Exam [facility] [address] [place] [address] Tiffanie Rebolledo, SAP HANA ARCHITECT [address] [place] [address] Last CPE: Not Found 06/11/2025 11:05 AM EDT Office Visit [facility] [address] [place] [phone] Siomara Li MD [address] [place] [address] Keep this appt and Dr Britt can discuss at the January visit keep or move out documented as of this encounter Goals Goal Patient Goal Type Associated Problems Recent Progress Patient-Stated? Author Blood Pressure < 140/80 Blood Pressure 143/65(2024 2:06 PM EST) No Arabella Solares PA Quit smoking / using tobacco Lifestyle No Ricarda Wekes HEMOGLOBIN A1C % < 7 Result Component 6.3( 10:29 AM EST) No Ricarda Weeks documented as of this encounter Procedures * Due to [place] [employer] law, this organization might not be sharing negative HIV tests. Procedure Name Priority Date/Time Associated Diagnosis Comments URINALYSIS DIP W/ REFLEX TO MICROSCOPIC+CULTURE Routine 09/09/2015 5:54 PM EST Overactive bladder CULTURE, URINE, ROUTINE Routine 09/09/2015 5:54 PM EST Overactive bladder documented in this encounter Results * Due to [place] [employer] law, this organization might not be sharing negative HIV tests. * CULTURE, URINE, ROUTINE (09/09/2015 5:54 PM EST) Bacteria culture (Urine) SEE NOTE [facility] Comment: {CULTURE, URINE, ROUTINE {[id number]) ??CULTURE, URINE, ROUTINE ??MICRO NUMBER: ?[id number] ??TEST STATUS: ? FINAL ??SPECIMEN SOURCE: ?? URINE ??SPECIMEN QUALITY: ??ADEQUATE ??RESULT: ?Multiple organisms present, each less than 10,000 ? CFU/mL. These organisms, commonly found on ? external and internal genitalia, are considered ? to be colonizers. No further testing performed. 09/09/2015 5:54 PM EST 09/09/2015 9:52 PM EST Narrative Resulting Agency Comment [id number] Erich Horvath MD LABORATORY Final Result [facility] [address] [place] [address] * URINALYSIS DIP W/ REFLEX TO MICROSCOPIC+CULTURE (09/09/2015 5:54 PM EST) Color (Urine) YELLOW YELLOW [facility] Comment:{COLOR {[id number]) Appearance (Urine) CLEAR CLEAR [facility] Comment:{APPEARANCE {[id number]) Specific gravity (Urine) 1.008 1.001 - 1.035 [facility] Comment:{SPECIFIC GRAVITY {[id number]) pH (Urine) 6.5 5.0 - 8.0 [facility] Comment:{PH {[id number]) Glucose (Urine) NEGATIVE NEGATIVE [facility] Comment:{GLUCOSE {[id number]) Bilirubin (Urine) NEGATIVE NEGATIVE [facility] Comment:{BILIRUBIN {[id number]) Ketones (Urine) NEGATIVE NEGATIVE [facility] Comment:{KETONES {[id number]) Hemoglobin (Urine) NEGATIVE NEGATIVE [facility] Comment:{OCCULT BLOOD {[id number]) Protein (Urine) NEGATIVE NEGATIVE [facility] Comment:{PROTEIN {[id number]) Nitrite (Urine) NEGATIVE NEGATIVE [facility] Comment:{NITRITE {[id number]) Leukocyte esterase (Urine) NEGATIVE NEGATIVE [facility] Comment:{LEUKOCYTE ESTERASE {[id number]) 09/09/2015 5:54 PM EST 09/09/2015 9:52 PM EST Narrative Resulting Agency Comment [id number] Erich Horvath MD LABORATORY Final Result [facility] [address] [place] [address] documented in this encounter Visit Diagnoses Diagnosis Overactive bladder Hypertonicity of bladder documented in this encounter Additional Health Concerns Infection Onset Date Last Indicated Resolved Time COVID-19 Rule-Out 09/12/2020 09/12/2020 12/07/2020 8:13 PM EST documented as of this encounter Care Teams Vice President Of Customer Service Relationship Specialty Start Date End Date Johnny Izquierdo MD [address] [place] [address] PCP - General 01/14/06 04/21/22 Johnny Frazier MD [address] [place] [address] PCP - General Family Medicine 04/22/22 documented as of this encounter
--- OUTSIDE RECORDS SUMMARY | 2025-01-21 18:20 | XMS_ITS | Encounter Summary ---
Author Organization [facility] Address [address] [place] [address] Care Team Providers Care Facility Service Associate Name Role Phone Johnny Izquierdo MD Primary Care Provider [phone] Johnny Frazier MD Primary Care Provider [phone] Encounter Details Date Type Department Care Team (Late st Contact Info) Description 02/07/2018 Orders Only [facility] [address] [place] [phone] Johnny Izquierdo MD [address] [place], [place] [id number] Social History Tobacco Use Types Packs/Day Years [...] as of this encounter Progress Notes * Zoë Bob NP - 02/12/2018 7:28 AM EDT Ok to wait for upcoming OV on 03/07. * Chasity Perera - 02/08/2018 12:20 PM EDT Forwarded to covering provider for review and PCP Timbo Patient has no upcoming appointment, no letter was generated documented in this encounter Plan of Treatment Upcoming Encounters Date Type Department Care Team (Latest Contact Info) Description 02/07/2025 9:25 AM EDT Office Visit [facility] [address] [place] [address] Siomara Li MD [address] [place] [phone] Return in about 3 months (around 03/12/2025). 05/12/2025 12:45 PM EDT CPE - Comprehensive Physical Exam [address] [phone] Tiffanie Rebolledo, VACUUM PAN TENDER [address] [place] [address] Last CPE: Not Found 06/11/2025 11:05 AM EDT Office Visit [facility] [address] [place] [phone] Siomara Li MD [address] [place] [phone] Keep this appt and Dr Britt can [...] encounter Procedures * Due to [place] state law, this organization might not be sharing negative HIV tests. Procedure Name Priority Date/Time Associated Diagnosis Comments HEMOGLOBIN A1C Routine 02/07/2018 11:17 AM EDT Controlled type 2 diabetes mellitus without complication, with long-term current use of insulin ALBUMIN (MICROALBUMIN), RANDOM URINE, WITH CREATININE Routine 02/07/2018 11:17 AM EDT Controlled type 2 diabetes mellitus without complication, with long-term current use of insulin LIPID PANEL WITH REFLEX TO DIRECT LDL Routine 02/07/2018 11:17 AM EDT Controlled type 2 diabetes mellitus without complication, with long-term current use of insulin BASIC METABOLIC PANEL WITH (GFR) Routine 02/07/2018 11:17 AM EDT Controlled type 2 diabetes mellitus without complication, with long-term current use of insulin documented in this encounter Results * Due to [facility] law, this organization might not be sharing negative HIV tests. * (ABNORMAL) BASIC METABOLIC PANEL WITH (GFR) (02/07/2018 11:17 AM EDT) Glucose 158(H) 65 - 99 mg/dL [facility] Comment: ? Fasting reference interval For someone without known diabetes, a glucose value >125 mg/dL indicates that they may have diabetes and this should be confirmed with a follow-up test. Urea Nitrogen Blood (BUN) 10 7 - 25 mg/dL [facility] Creatinine 0.82 0.50 - 0.99 mg/dL [facility] Comment: For patients >49 years of age, the reference limit for Creatinine is approximately 13% higher for people identified as -Congolese. GFR 75 > OR = 60 mL/min/1 .73m2 [facility] GFR () 86 > OR = 60 mL/min/1 .73m2 [facility] BUN/Creatinine Ratio NOT APPLICABLE 6 - 22 (calc) [facility] Sodium 139 135 - 146 mmol/L [facility] Potassium 3.9 3.5 - 5.3 mmol/L [facility] Chloride 102 98 - 110 mmol/L [facility] Carbon dioxide 27 20 - 31 mmol/L [facility] Calcium 8.9 8.6 - 10.4 mg/dL [facility] 02/07/2018 11:1 7 AM EDT 02/07/2018 6:57 PM EDT Narrative [facility] - 02/08/2018 12:29 AM EDT Please note that this estimated [...] needs for GFR calculation. Resulting Agency Comment [id number] Johnny Izquierdo MD LABORATORY Final Result Performing Organization Address [facility] Co de Phone Number [facility] [address] [place] [address] * (ABNORMAL) ALBUMIN (MICROALBUMIN), RANDOM URINE, WITH CREATININE (02/07/2018 11:17 AM EDT) Creatinine (Urine) 73 20 - 320 mg/dL [facility] Albumin (Urine) 2.5 mg/dL [facility] Comment: Reference Range Not established Albumin/Creatinine (Urine) 34(H) <30 mcg/mg creat [facility] Comment: The ADA defines abnormalities in albumin excretion as follows: Category ? Result (mcg/mg creatinine) Normal ?<30 Microalbuminuria ? 30-299 Clinical albuminuria ?? > OR = 300 The ADA recommends that at least two of three specimens collected within a 3-6 month period be abnormal before considering a patient to be within a diagnostic category. 02/07/2018 11:1 7 AM EDT 02/07/2018 6:57 PM EDT Narrative Resulting Agency Comment [id number] Johnny Izquierdo MD LABORATORY Final Result Performing Organization Address [facility] Co de Phone Number [facility] [address] [place] [address] * (ABNORMAL) LIPID PANEL WITH REFLEX TO DIRECT LDL (02/07/2018 11:17 AM EDT) Cholesterol 173 <200 mg/dL [facility] HDL Cholesterol 27(L) >50 mg/dL [facility] Triglyceride 295(H) <150 mg/dL [facility] LDL Cholesterol 107(H) mg/dL (calc) [facility] Comment: Reference range: [...] LDL-C. Bobby SS et al. HECTOR. 2013;310(19): 4842-8183 (http://education.SharesVault/faq/DHH027) CHOL/HDL Ratio 6.4(H) <5.0 (calc) [facility] Cholesterol Non-HDL 146(H) <130 mg/dL (calc) [facility] Comment: For patients with diabetes plus 1 major ASCVD risk factor, treating to a non-HDL-C goal of <100 mg/dL (LDL-C of <70 mg/dL) is considered a therapeutic option. 02/07/2018 11:1 7 AM EDT 02/07/2018 6:57 PM EDT Narrative Resulting Agency Comment [id number] Johnny Izquierdo MD LABORATORY Final Result [facility] [address] [place] [address] * (ABNORMAL) HEMOGLOBIN A1C (02/07/2018 11:17 AM EDT) Hemoglobin A1C 5.7(H) <5.7 % [...] of diabetes for children. Estimated Average Glucose 126 mg/dL (calc) [facility] 02/07/2018 11:1 7 AM EDT 02/07/2018 6:57 PM EDT Narrative Resulting Agency Comment [id number] Johnny Izquierdo MD LABORATORY Final Result [facility] [address] [place] [address] documented in this encounter Visit Diagnoses Diagnosis Controlled type 2 diabetes mellitus without complication, with long-term current use of insulin (HCC) documented in this encounter Additional Health Concerns Infection Onset Date Last Indicated Resolved Time COVID-19 Rule-Out 09/12/2020 09/12/2020 12/07/2020 8:13 PM EST documented as of this encounter Care Teams Facility Service Associate Relationship Specialty Start Date End Date Johnny Izquierdo MD [address] [place] [address] PCP - General 01/14/06 04/21/22 Johnny Frazier MD [address] [place] [address] PCP - General Family Medicine 04/22/22 documented as of this encounter
--- OUTSIDE RECORDS SUMMARY | 2025-01-21 18:20 | XMS_ITS | Encounter Summary ---
Author Organization [facility] Address [address] [place] [address] Care Team Providers Care Hot Header Operator Name Role Phone Johnny Izquierdo MD Primary Care Provider [phone] Johnny Frazier MD Primary Care Provider [phone] Encounter Details Date Type Department Care Team (Late st Contact Info) Description 05/31/2018 [facility] Pre-Admission Testing [address] [facility] [address] [place] [phone] Mary Villarreal NP Social History Tobacco Use Types Packs/Day [...] Description 02/07/2025 9:25 AM EDT Office Visit [facility] [address] [place] [phone] Siomara Li MD [address] [place], [place] [phone] Return in about 3 months (around 03/12/2025). 05/12/2025 12:45 PM EDT CPE - Comprehensive Physical Exam [facility] [address] [place] [phone] Tiffanie Rebolledo ROLL CLAMP OPERATOR [address] [place] [address] Last CPE: Not Found 06/11/2025 11:05 AM EDT Office Visit [facility] [address] [place] [phone] Siomara Li MD [address] [place] [phone] Keep this appt and Dr Britt can [...] BILLED BY ADULT OR PEDIATRIC CARDIOLOGY Routine 05/31/2018 3:01 PM EDT Panniculitis affecting back Hyperlipidemia with target LDL less than 100 GERD (GASTROESOPHAGEAL REFLUX DISEASE) Seasonal allergic rhinitis due to pollen MOOD DISORDER xx0.33xx Hypothyroidism (acquired) Tobacco use disorder Bipolar affective disorder in remission Overactive bladder Essential hypertension Type 2 diabetes mellitus without complication, without long-term current use of insulin CBC (H/H, RBC, INDICES,WBC, PLT) Routine 05/31/2018 3:00 PM EDT Preop examination Panniculitis affecting back Hyperlipidemia with target LDL less than 100 GERD (GASTROESOPHAGEAL REFLUX DISEASE) Seasonal allergic rhinitis due to pollen MOOD DISORDER xx0.33xx Hypothyroidism (acquired) Tobacco use disorder Bipolar affective disorder in remission Overactive bladder Essential hypertension Type 2 diabetes mellitus without complication, without long-term current use of insulin BASIC METABOLIC PANEL WITH (GFR) Routine 05/31/2018 3:00 PM EDT Preop examination Panniculitis affecting back Hyperlipidemia with target LDL less than 100 GERD (GASTROESOPHAGEAL REFLUX DISEASE) Seasonal allergic rhinitis due to pollen MOOD DISORDER xx0.33xx Hypothyroidism (acquired) Tobacco use disorder Bipolar affective disorder in remission Overactive bladder Essential hypertension Type 2 diabetes mellitus without complication, without long-term current use of insulin documented in this encounter Results * Due to [place] state law, this organization might not be sharing negative HIV tests. * EKG-TO BE READ AND BILLED BY CARDIOLOGY (05/31/2018 3:01 PM EDT) VENTRICULAR RATE 67 BPM MUS E EKG SYSTEM ATRIAL RATE 67 BPM MUSE EKG SYSTEM P-R INTERVAL 214 ms MUSE EK G SYSTEM QRS DURATION 84 ms MUSE EK G SYSTEM QT 410 ms MUSE EKG SYSTEM QTC 433 ms MUSE EKG SYSTEM P AXIS 60 degrees MUSE EKG SYSTEM R AXIS 35 degrees MUSE EKG SYSTEM T AXIS 47 degrees MUSE EKG SYSTEM EKG INTERPRETATION Sinus rhythm with 1st degree A-V block Otherwise normal ECG When compared with ECG of 03-MAR-2017 09:00, No significant change was found Confirmed by NEVAEH SANDRA ([id number]) on 05/31/2018 8:14:14 PM MUSE EKG SYSTEM 05/31/2018 3:01 PM EDT 05/31/2018 8:14 PM EDT us Mary Villarreal NP CARDIOVASCULAR-WITH INBSK T RTG Final Result MUSE EKG SYSTEM * CBC (H/H, RBC, INDICES,WBC, PLT) (05/31/2018 3:00 PM EDT) WBC 7.3 3.8 - 10.8 Thousand/uL [facility] RBC 4.22 3.80 - 5.10 Million/uL [facility] Hemoglobin 13.4 11.7 - 15.5 g/dL [facility] Hematocrit 38.6 35.0 - 45.0 % [facility] MCV 91.5 80.0 - 100.0 fL [facility] MCH 31.8 27.0 - 33.0 pg [facility] MCHC 34.7 32.0 - 36.0 g/dL [facility] RDW 13.0 11.0 - 15.0 % [facility] PLT 174 140 - 400 Thousand/uL [facility] MPV 12.0 7.5 - 12.5 fL [facility] 05/31/2018 3:00 PM EDT 06/01/2018 12:27 AM EDT Narrative Resulting Agency Comment [id number] us Mary Villarreal ROLL CLAMP OPERATOR LAB SAME DAY RESULT Final Result [facility] [address] [place] [address] * BASIC METABOLIC PANEL WITH (GFR) (05/31/2018 3:00 PM EDT) Glucose 76 65 - 99 mg/dL [facility] Comment:Fasting reference in terval Urea Nitrogen Blood (BUN) 14 7 - 25 mg/dL [facility] Creatinine 0.83 0.50 - 0.99 mg/dL [facility] Comment: For patients >49 years of age, the reference limit for Creatinine is approximately 13% higher for people identified as -Estonian. GFR 73 > OR = 60 mL/min/1 .73m2 [facility] GFR () 85 > OR = 60 mL/min/1 .73m2 [facility] BUN/Creatinine Ratio NOT APPLICABLE 6 - 22 (calc) [facility] Sodium 138 135 - 146 mmol/L [facility] Potassium 4.1 3.5 - 5.3 mmol/L [facility] Chloride 103 98 - 110 mmol/L [facility] Carbon dioxide 26 20 - 32 mmol/L [facility] Calcium 8.8 8.6 - 10.4 mg/dL [facility] 05/31/2018 3:00 PM EDT 06/01/2018 12:27 AM EDT Narrative [facility] - 06/01/2018 6:08 AM EDT Please note that this [...] needs for GFR calculation. Resulting Agency Comment [id number] us Mary Villarreal ROLL CLAMP OPERATOR LABORATORY Final Res ult [facility] [address] [place] [address] documented in this encounter Visit Diagnoses Diagnosis Preop examination Preoperative examination, unspecified Panniculitis affecting back Other symptoms referable to back Hyperlipidemia with target LDL less than 100 Other and unspecified hyperlipidemia GERD (GASTROESOPHAGEAL REFLUX DISEASE) Seasonal allergic rhinitis due to pollen Mood Disorder (F39) Hypothyroidism (acquired) Unspecified hypothyroidism Tobacco use disorder Bipolar affective disorder in remission (HHS) Overactive bladder Hypertonicity of bladder Essential hypertension Type 2 diabetes mellitus without complication, without long-term current use of insulin (HCC) documented in this encounter Additional Health Concerns Infection Onset Date Last Indicated Resolved Time COVID-19 Rule-Out 09/12/2020 09/12/2020 12/07/2020 8:13 PM EST documented as of this encounter Care Teams Hot Header Operator Relationship Specialty Start Date End Date Johnny Izquierdo MD [address] [place] [address] PCP - General 01/14/06 04/21/22 Johnny Frazier MD [address] [place] [address] PCP - General Family Medicine 04/22/22 documented as of this encounter
--- OUTSIDE RECORDS SUMMARY | 2025-01-21 18:20 | XMS_ITS | Clinical Summary ---
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 was found Confirmed by Juno Zamarripa ([id number]) on 01/07/2025 11:38:26 PM us Rosario Carpio MD ECG ORDERABLES Final Result [facility] EKG * XR Chest Portable 1 View (12/28/2024 12:01 PM EST) Anatomical Region Laterality Modality Body Computed Radiogr aphy 12/28/2024 12:1 4 PM EST Impressions 12/28/2024 12:57 PM EST No acute pulmonary process. Silvano Enriquez, have reviewed the examination and concur with the findings as reported or so edited. Trainee: ??Forrest Fernandez If this radiology report contains a blank impression section, it is an incomplete radiology report. ??Please contact the interpreting radiologist or applicable radiology division as soon as possible to obtain the completed interpretation. ? Workstation ID: [id number] Narrative 12/28/2024 12:57 PM EST XR CHEST [...] pneumothorax. There are no acute osseous abnormalities. Resulting Agency Comment [id number] Procedure Note Silvano Webster - 12/28/2024 XR CHEST PORTABLE 1 VIEW [...] osseous abnormalities. IMPRESSION: No acute pulmonary process. I, Silvano Webster, have reviewed the examination and concur with the findingsas reported or so edited. Trainee: Forrest Fernandez If this radiology report contains a blank impression section, it is anincomplete radiology report. Please contact the interpreting radiologistor applicable radiology division as soon as possible to obtain thecompleted interpretation. Workstation ID: [id number] us Zandra Turner MD IMG XR PROCEDURES Final R esult * CT Lung Cancer Screening 12 Months Annual Follow Up (05/18/2023 2:00 PM EDT) Anatomical Region Laterality Modality Chest Computed Tomogra phy 05/23/2023 2:56 PM EDT Impressions 06/06/2023 7:46 AM EDT Impression: Very mild upper lung emphysema with [...] obtain the completed interpretation. ? Workstation ID: [id number] Up-to-date CT equipment and radiation dose reduction techniques were employed. CTDIvol: 2.1 mGy. DLP: 72 mGy-cm. Narrative 06/06/2023 7:[address] LUNG [...] disc degeneration, normal thoracic vertebral body heights. Resulting Agency Comment [id number] Procedure Note Michael Chester MD - 06/06/2023 CT LUNG CANCER SCREENING 12 MONTHS ANNUAL FOLLOW UP Indication: F17.200 - I10 - Nicotine dependence, unspecified,uncomplicated. Technique: Non-enhanced chest CT. Images were acquired with helicalacquisition and low dose technique. Multiplanar reconstructions includingMIP, MinIP and Slab images were reviewed. Note that low dose techniqueuses a low level of radiation exposure that provides adequate lung detailbut limited image quality in the mediastinum and [...] possible to obtain thecompleted interpretation. Workstation ID: [id number] Up-to-date CT equipment and radiation dose reduction techniques wereemployed. CTDIvol: 2.1 mGy. DLP: 72 mGy-cm. Johnny Frazier MD IM CT PROCEDURES Final Result from Last 3 Months or Most Recently Relevant to Health Maintenance Insurance [address] [place] [id number] MEDICARE * Guarantor: Tatum Fine Account Type Relation to Patient Date of Phone Billing Address Personal/Family Self 1950 [address] [facility] [id number] [place] [id number] Care Teams Sugar Drier Relationship Specialty Start Date End Date Johnny Frazier MD PCP - General Family Medicine 04/14/23
--- OUTSIDE RECORDS SUMMARY | 2025-01-21 18:20 | XMS_ITS | Encounter Summary ---
Author Organization [facility] Address [address] [place] [address] Care Team Providers Care Judicial Administrative Assistant Name Role Phone Johnny Izquierdo MD Primary Care Provider [phone] Johnny Frazier MD Primary Care Provider [phone] Encounter Details Date Type Department Care Team (Late st Contact Info) Description 04/27/2018 Orders Only [facility] [address] [place] [phone] Johnny Izquierdo MD [address] [place], [place] [phone] Social History Tobacco Use Types Packs/Day Years [...] Description 02/07/2025 9:25 AM EDT Office Visit [facility] [address] [place] [phone] Siomara Li MD [address] [place] [address] Return in about 3 months (around 03/12/2025). 05/12/2025 12:45 PM EDT CPE - Comprehensive Physical Exam [facility] [address] [place] [phone] Tiffnaie Rebolledo JUNIOR LINUX ADMINISTRATOR [address] [place] [address] Last CPE: Not Found 06/11/2025 11:05 AM EDT Office Visit [facility] [address] [place] [phone] Siomara Li MD [address] [place] [address] Keep this appt and Dr Britt can [...] this encounter Procedures * Due to [place] Writer.ly law, this organization might not be sharing negative HIV tests. Procedure Name Priority Date/Time Associated Diagnosis Comments THYROID STIMULATING HORMONE (TSH) WITH FREE T4 REFLEX, SERUM Routine 04/27/2018 11:40 AM EDT Hypothyroidism, unspecified type documented in this encounter Results * Due to [place] Writer.ly law, this organization might not be sharing negative HIV tests. * THYROID STIMULATING HORMONE (TSH) WITH FREE T4 REFLEX, SERUM (04/27/2018 11:40 AM EDT) TSH 4.06 0.40 - 4.50 mIU/L [facility] 04/27/2018 11:4 0 AM EDT 04/27/2018 5:04 PM EDT Narrative Resulting Agency Comment [id number] Johnny Izquierdo MD LABORATORY Final Result [facility] [address] [place] [address] documented in this encounter Visit Diagnoses Diagnosis Hypothyroidism, unspecified type documented in this encounter Additional Health Concerns Infection Onset Date Last Indicated Resolved Time COVID-19 Rule-Out 09/12/2020 09/12/2020 12/07/2020 8:13 PM EST documented as of this encounter Care Teams Judicial Administrative Assistant Relationship Specialty Start Date End Date Johnny Izquierdo MD [address] [place] [address] PCP - General 01/14/06 04/21/22 Johnny Frazier MD [address] [place] [address] PCP - General Family Medicine 04/22/22 documented as of this encounter
--- OUTSIDE RECORDS SUMMARY | 2025-01-21 18:20 | XMS_ITS | Encounter Summary ---
Author Organization [facility] Address [address] [place] [address] Care Team Providers Care Mobile Development Manager Name Role Phone Johnny Izquierdo MD Primary Care Provider [phone] Johnny Frazier MD Primary Care Provider [phone] Encounter Details Date Type Department Care Team (Late st Contact Info) Description 03/09/2016 Orders Only [facility] [address] [place] [phone] Johnny Izquierdo MD [address] [place], [place] [phone] Social History Tobacco Use Types Packs/Day Years [...] on file documented as of this encounter Functional Status documented as of this encounter Progress Notes * Katy Antoine - 03/11/2016 2:01 PM EDTQuick Note: The patients lab results are at an abnormal level by the protocol guidelines. Please review. No Letter was generated. Patient has no upcoming appointment until June documented in this encounter Plan of Treatment Upcoming Encounters Date Type Department Care Team (Latest Contact Info) Description 02/07/2025 9:25 AM EDT Office Visit [facility] [address] [place] [phone] Siomara Li MD [address] [place] [id number] Return in about 3 months (around 03/12/2025). 05/12/2025 12:45 PM EDT CPE - Comprehensive Physical Exam [facility] [address] [place] [phone] Tiffanie Rebolledo, GRANULAR OPERATOR [address] [place] [address] Last CPE: Not Found 06/11/2025 11:05 AM EDT Office Visit [facility] [address] [place] [phone] Siomara Li MD [address] [place] [address] Keep this appt and Dr Britt can discuss at the Klesi visit keep or move out documented as [...] Procedure Name Priority Date/Time Associated Diagnosis Comments LIPID PROFILE, NON-FASTING, W/ DIRECT LDL, W/O TRIGS Routine 03/09/2016 12:24 PM EDT Diabetes type 2, controlled TSH, 3RD GENERATION Routine 03/09/2016 1 2:24 PM EDT Hypothyroidism (acquired) HEMOGLOBIN A1C Routine 03/09/2016 12:24 PM EDT Diabetes mellitus type II, controlled ALBUMIN (MICROALBUMIN), RANDOM URINE, WITH CREATININE Routine 03/09/2016 12:24 PM EDT Diabetes mellitus type II, controlled BASIC METABOLIC PANEL WITH (GFR) Routine 03/09/2016 12:24 PM EDT Diabetes mellitus type II, controlled documented in this encounter Results * Due to [place] state law, this organization might not be sharing negative HIV tests. * TSH, 3RD GENERATION (03/09/2016 12:24 PM EDT) TSH 4.10 0.40 - 4.50 mIU/L [facility] Comment:{TSH {[id number]) 03/09/2016 12:2 4 PM EDT 03/09/2016 8:20 PM EDT Narrative Resulting Agency Comment [id number] us Johnny Izquierdo MD LABORATORY Final Result Performing Organization Address City/State/[facility] Co de Phone Number [facility] [address] [place] [address] * BASIC METABOLIC PANEL WITH (GFR) (03/09/2016 12:24 PM EDT) Glucose 83 65 - 99 mg/dL [facility] Comment: {GLUCOSE {[id number]) ? Fasting reference interval Urea Nitrogen Blood (BUN) 13 7 - 25 mg/dL [facility] Comment:{UREA NITROGEN (BUN) {[id number]) Creatinine 0.90 0.50 - 0.99 mg/dL [facility] Comment: {CREATININE {[id number]) For patients >49 years of age, the reference limit for Creatinine is approximately 13% higher for people identified as -[place]. GFR 68 > OR = 60 mL/min/1 .73m2 [facility] Comment:{eGFR NON-AFR. AMERI CAN {[id number]) GFR () 78 > OR = 60 mL/min/1 .73m2 [facility] Comment:{eGFR AMERIC AN {[id number]) BUN/Creatinine Ratio NOT APPLICABLE 6 - 22 (calc) [facility] Comment:{BUN/CREATININE RATI O {[id number]) Sodium 137 135 - 146 mmol/L [facility] Comment:{SODIUM {[id number]) Potassium 4.8 3.5 - 5.3 mmol/L [facility] Comment:{POTASSIUM {[id number]) Chloride 102 98 - 110 mmol/L [facility] Comment:{CHLORIDE {[id number]) Carbon dioxide 26 19 - 30 mmol/L [facility] Comment:{CARBON DIOXIDE {[id number]) Calcium 9.5 8.6 - 10.4 mg/dL [facility] Comment:{CALCIUM {[id number]) 03/09/2016 12:2 4 PM EDT 03/09/2016 8:20 PM EDT Narrative [facility] - 03/09/2016 10:33 PM EDT Please note that this estimated [...] needs for GFR calculation. Resulting Agency Comment [id number] us Johnny Izquierdo MD LABORATORY Final Result [facility] [address] [place] [address] * ALBUMIN (MICROALBUMIN), RANDOM URINE, WITH CREATININE (03/09/2016 12:24 PM EDT) Creatinine (Urine) 74 20 - 320 mg/dL [facility] Comment:{CREATININE, RANDOM URINE {[id number]) Albumin (Urine) <0.2 mg/dL [facility] Comment: {MICROALBUMIN {[id number]) Reference Range Not established Albumin/Creatinine (Urine) NOTE <30 mcg/mg creat [facility] Comment: {MICROALBUMIN/CREATININE RATIO, RANDOM URINE {[id number]) The microalbumin value is less than 0.2 [...] patient to be within a diagnostic category. 03/09/2016 12:2 4 PM EDT 03/09/2016 8:20 PM EDT Narrative Resulting Agency Comment [id number] us Johnny Izquierdo MD LABORATORY Final Result Performing Organization Address City/State/[facility] Co de Phone Number [facility] [address] [place] [address] * (ABNORMAL) HEMOGLOBIN A1C (03/09/2016 12:24 PM EDT) Hemoglobin A1C 5.7(H) <5.7 % of total Hgb [facility] Comment: {HEMOGLOBIN A1c {[id number]) According to ADA guidelines, hemoglobin A1c <7.0% [...] children. Estimated Average Glucose 126 mg/dL (calc) [facility] Comment:{MEAN PLASMA GLUCOSE {[id number]) 03/09/2016 12:2 4 PM EDT 03/09/2016 8:20 PM EDT Narrative Resulting Agency Comment [id number] Johnny Izquierdo MD LABORATORY Final Result Performing Organization Address City/[facility]/ZIP Co de Phone Number [facility] [address] [place] [address] * (ABNORMAL) LIPID PROFILE, NON-FASTING, W/ DIRECT LDL, W/O TRIGS (03/09/2016 12:24 PM EDT) Cholesterol 166 125 - 200 mg/dL [facility] Comment:{CHOLESTEROL, TOTAL {[id number]) HDL Cholesterol 30(L) > OR = 46 mg/dL [facility] Comment:{HDL CHOLESTEROL {[id number]) CHOL/HDL Ratio 5.5(H) < OR = 5.0 (calc) [facility] Comment:{CHOL/HDLC RATIO {[id number]) Cholesterol Non-HDL 136 mg/dL (calc) [facility] Comment: {NON HDL CHOLESTEROL {[id number]) Target for non-HDL cholesterol is 30 mg/dL higher than LDL cholesterol target. LDL, Direct Measure 103 <130 mg/dL [facility] Comment: {DIRECT LDL {[id number]) Desirable range <100 mg/dL for patients with CHD or diabetes and <70 mg/dL for diabetic patients with known heart disease. 03/09/2016 12:2 4 PM EDT 03/09/2016 8:20 PM EDT Narrative Resulting Agency Comment [id number] Johnny Izquierdo MD LABORATORY Final Result Performing Organization Address City/[facility]/ZIP Co de Phone Number [facility] [address] [place] [address] documented in this encounter Visit Diagnoses Diagnosis Diabetes type 2, controlled (HCC)- Primary Type II or unspecified type diabetes mellitus without mention of complication, not stated as uncontrolled Diabetes mellitus type II, controlled (HCC) Type II or unspecified type diabetes mellitus without mention of complication, not stated as uncontrolled Hypothyroidism (acquired) Unspecified hypothyroidism documented in this encounter Additional Health Concerns Infection Onset Date Last Indicated Resolved Time COVID-19 Rule-Out 09/12/2020 09/12/2020 12/07/2020 8:13 PM EST documented as of this encounter Care Teams Mobile Development Manager Relationship Specialty Start Date End Date Johnny Izquierdo MD [address] [place] [address] PCP - General 01/14/06 04/21/22 Johnny Frazier MD [address] [place] [address] PCP - General Family Medicine 04/22/22 documented as of this encounter
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
--- OUTSIDE RECORDS SUMMARY | 2025-01-21 18:20 | XMS_ITS | Encounter Summary ---
Author Organization [facility] Address [address] [place] [address] Care Team Providers Care Compensator Worker Name Role Phone Johnny Izquierdo MD Primary Care Provider [phone] Johnny Frazier MD Primary Care Provider [phone] Encounter Details Date Type Department Care Team (Late st Contact Info) Description 03/03/2017 Orders Only [facility] [address] [place] [phone] Johnny Izquierdo MD [address] [place], [place] [phone] Social History Tobacco Use Types Packs/Day Years [...] encounter Progress Notes * Bertha Babin - 03/07/2017 2:58 PM EDT Lab letter sent to patient. * Linda Dickson - 03/06/2017 12:27 PM EDT Please send stable letter * Chasity Perera - 03/06/2017 10:56 AM EDT Forwarded to covering provider Randolph and PCP for review. Please review and advise. patient has no upcoming appointment, no letter was generated. documented in this encounter Plan of Treatment Upcoming Encounters Date Type Department Care Team (Latest Contact Info) Description 02/07/2025 9:25 AM EDT Office Visit [facility] [address] [place] [phone] Siomara Li MD [address] [place] [address] Return in about 3 months (around 03/12/2025). 05/12/2025 12:45 PM EDT CPE - Comprehensive Physical Exam [address] [address] Tiffanie Rebolledo, RADIO INSTALLER [address] [place] [address] Last CPE: Not Found 06/11/2025 11:05 AM EDT Office Visit [facility] [address] [place] [phone] Siomara Li MD [address] [place] [phone] Keep this appt and Dr Britt can [...] of this encounter Procedures * Due to [place] Axial law, this organization might not be sharing negative HIV tests. Procedure Name Priority Date/Time Associated Diagnosis Comments EKG-TO BE READ & BILLED BY ADULT OR PEDIATRIC CARDIOLOGY Routine 03/03/2017 9:00 AM EDT Precordial pain CBC INCLUDES DIFFERENTIAL AND PLATELET COUNT Routine 03/03/2017 8:49 AM EDT Benign essential HTN LIPID PANEL WITH REFLEX TO DIRECT LDL Routine 03/03/2017 8:49 AM EDT Hyperlipemia, mixed BASIC METABOLIC PANEL WITH (GFR) Routine 03/03/2017 8:49 AM EDT Benign essential HTN documented in this encounter Results * Due to [place] Axial law, this organization might not be sharing negative HIV tests. * EKG-TO BE READ AND BILLED BY CARDIOLOGY (03/03/2017 9:00 AM EDT) VENTRICULAR RATE 61 BPM MUS E EKG SYSTEM ATRIAL RATE 61 BPM MUSE EKG SYSTEM P-R INTERVAL 212 ms MUSE EK G SYSTEM QRS DURATION 80 ms MUSE EK G SYSTEM QT 402 ms MUSE EKG SYSTEM QTC 404 ms MUSE EKG SYSTEM P AXIS 33 degrees MUSE EKG SYSTEM R AXIS 24 degrees MUSE EKG SYSTEM T AXIS 46 degrees MUSE EKG SYSTEM EKG INTERPRETATION Sinus rhythm with 1st degree A-V block Otherwise normal ECG When compared with ECG of 31-JAN-2017 10:43, No significant change was found MUSE EKG SYSTEM 03/03/2017 9:00 AM EDT 03/04/2017 3:42 AM EDT us Johnny Izquierdo MD CARDIOVASCULAR-WITH INBSKT RT G Final Result MUSE EKG SYSTEM * BASIC METABOLIC PANEL WITH (GFR) (03/03/2017 8:49 AM EDT) Glucose 83 65 - 99 mg/dL [facility] Comment:Fasting reference in terval Urea Nitrogen Blood (BUN) 12 7 - 25 mg/dL [facility] Creatinine 0.84 0.50 - 0.99 mg/dL [facility] Comment: For patients >49 years of age, the reference limit for Creatinine is approximately 13% higher for people identified as -Greek. GFR 73 > OR = 60 mL/min/1 .73m2 [facility] GFR () 85 > OR = 60 mL/min/1 .73m2 [facility] BUN/Creatinine Ratio NOT APPLICABLE 6 - 22 (calc) [facility] Sodium 139 135 - 146 mmol/L [facility] Potassium 4.3 3.5 - 5.3 mmol/L [facility] Chloride 102 98 - 110 mmol/L [facility] Carbon dioxide 30 20 - 31 mmol/L [facility] Calcium 9.8 8.6 - 10.4 mg/dL [facility] 03/03/2017 8:49 AM EDT 03/03/2017 6:40 PM EDT Narrative [facility] - 03/03/2017 9:35 PM EDT Please note that this estimated [...] needs for GFR calculation. Resulting Agency Comment [id number] us Johnny Izquierdo MD LABORATORY Final Result [facility] [address] [place] [address] * (ABNORMAL) LIPID PANEL WITH REFLEX TO DIRECT LDL (03/03/2017 8:49 AM EDT) Cholesterol 189 125 - 200 mg/dL [facility] HDL Cholesterol 30(L) > OR = 46 mg/dL [facility] Triglyceride 173(H) <150 mg/dL [facility] LDL Cholesterol 124 <130 mg/dL (calc) [facility] Comment: Desirable range <100 mg/dL for patients with CHD or diabetes and <70 mg/dL for diabetic patients with known heart disease. CHOL/HDL Ratio 6.3(H) < OR = 5.0 (calc) [facility] Cholesterol Non-HDL 159 mg/dL (calc) [facility] Comment: Target for non-HDL cholesterol is 30 mg/dL higher than LDL cholesterol target. 03/03/2017 8:49 AM EDT 03/03/2017 6:40 PM EDT Narrative Resulting Agency Comment [id number] Johnny Izquierdo MD LABORATORY Final Result Performing Organization Address [facility] de Phone Number [facility] [address] [place] [address] * CBC INCLUDES DIFFERENTIAL AND PLATELET COUNT (03/03/2017 8:49 AM EDT) WBC 7.1 3.8 - 10.8 Thousand/u L [facility] RBC 4.69 3.80 - 5.10 Million/uL [facility] Hemoglobin 14.3 11.7 - 15.5 g/dL [facility] Hematocrit 42.4 35.0 - 45.0 % [facility] MCV 90.5 80.0 - 100.0 fL [facility] MCH 30.5 27.0 - 33.0 pg [facility] MCHC 33.8 32.0 - 36.0 g/dL [facility] RDW 13.5 11.0 - 15.0 % [facility] PLT 157 140 - 400 Thousand/u L [facility] MPV 10.6 7.5 - 12.5 fL [facility] Neutrophils # 3976 1500 - 7800 cells/uL [facility] Lymphocytes # 2293 850 - 3900 cells/uL [facility] Monocytes # 511 200 - 950 cells/uL [facility] Eosinophils # 128 15 - 500 cells/uL [facility] Basophils # 192 0 - 200 cells/uL [facility] Neutrophils % 56.0 % [facility] Lymphocytes % 32.3 % [facility] Monocytes % 7.2 % [facility] Eosinophils % 1.8 % [facility] Basophils % 2.7 % [facility] 03/03/2017 8:49 AM EDT 03/03/2017 6:40 PM EDT Narrative Resulting Agency Comment [id number] Johnny Izquierdo MD LAB SAME DAY RESULT Final Res ult Performing Organization Address [facility] Co de Phone Number [facility] [address] [place] [address] documented in this encounter Visit Diagnoses Diagnosis Benign essential HTN Essential hypertension, benign Hyperlipemia, mixed Mixed hyperlipidemia Precordial pain documented in this encounter Additional Health Concerns Infection Onset Date Last Indicated Resolved Time COVID-19 Rule-Out 09/12/2020 09/12/2020 12/07/2020 8:13 PM EST documented as of this encounter Care Teams Compensator Worker Relationship Specialty Start Date End Date Johnny Izquierdo MD [address] [place] [address] PCP - General 01/14/06 04/21/22 Johnny Frazier MD [address] [place] [address] PCP - General Family Medicine 04/22/22 documented as of this encounter
--- OUTSIDE RECORDS SUMMARY | 2025-01-21 18:20 | XMS_ITS | Encounter Summary ---
Author Organization [facility] Address [address] [place] [address] Care Team Providers Care Conventions Assistant Name Role Phone Joaquín Izquierdo MD Primary Care Provider [phone] Joaquín Frazier MD Primary Care Provider [phone] Reason for Visit * Reason Comments E-prescribing Refill Request Encounter Details Date Type Department Care Team (Late st Contact Info) Description 11/16/2011 Refill [facility] [address] [place] [phone] Joaquín Izquierdo MD [address] [place], [place] [phone] E-prescribing Refill Request Social History Tobacco Use [...] Miscellaneous Notes * Telephone Encounter - Abby Bass - 11/16/2011 2:55 PM EST Faxed/E-prescribed medication renewal request(s) for Tatum Fine 61 y.o. female received from pharmacy. Entered this pharmacy as preferred pharmacy for patient. Any special requests or concerns?- none Last CPE with this specialty: 04/11/2005 Last OV with this specialty: 10/26/2011 Next OV: Future Appointments Date Time Provider Department Center 11/18/2011 2:00 PM 203-[facility]N [facility]DO [facility] [place] 01/25/2012 11:30 AM 803-[facility] Pertinent lab results: Lab Results Component Value Date SODIUM 140 09/09/2011 POTASSIUM 4.3 09/09/2011 CHLOR 106 09/09/2011 CO2 27 09/09/2011 BUN 11 09/09/2011 CREATININE 0.89 09/09/2011 GLUCOSE 70 09/09/2011 LESIA 8.8 09/09/2011 Lab Results Component Value Date A1C 5.7* 09/09/2011 Lab Results Component Value Date MICROALBUMIN < 5 12/27/2010 MICROALBRAT SEE TEXT 12/27/2010 Lab Results Component Value Date AST 14 09/09/2011 ALT 9 08/10/2010 Allergies: Review of patient's allergies indicates no known allergies. BP Readings from Last 1 Encounters: 10/26/11 156/78 Patient Active Problem List Diagnoses Date Noted ??? Chest pain [786.50F] 01/21/2011 01/21/11 hospitalized at [facility]. Had cardiac catheterization which was normal, both left and right heart evaluated. Lianna Meléndez NP ??? S/P colonoscopy [V45.89NL] 10/29/2010 10/29/10 done 10/27/10 showed tubular adenoma. Lianna Meléndez NP ??? 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 Hypothyroidism [244.9AP] 08/19/2009 Levothyroid 112mcg ??? Tobacco Use Disorder [305.1] 08/19/2009 01/21/11 nicoderm patch 21 mg ordered, will decrease to 14 mg with next month refill. Lianna Meléndez NP ??? GERD (GASTROESOPHAGEAL REFLUX DISEASE) [530.81K] 10/19/2007 On ranitidine 150 ??? ALLERGIC RHINITIS [477.9AD] 10/19/2007 nasonex ??? NEUROPATHY IN DIABETES [250.60A] 10/19/2007 ??? DM w/o complication type II [250.00KX] 04/06/2007 On lantus 30 and metformin 850 tid Glyco at 6.1 ??? Hyperlipidemia [272.4R] 04/06/2007 Start simvastatin was on lipitor LDL 120 increase to simvastatin 40mg 01/21/11 recent ldl 94 with simvastatin 40 mg. Lianna Meléndez NP ??? ANXIETY STATE, NEUROTIC [300.00B] 04/06/2007 ??? BIPOLAR AFFECTIVE DISORDER, DEPRESSED [296.50E] 04/06/2007 Geodon 80 , Lexapro 20 documented in this encounter Plan of Treatment Upcoming Encounters Date Type Department Care Team (Latest Contact Info) Description 02/07/2025 9:25 AM EDT Office Visit [facility] [address] [place] [phone] Siomara Li MD [address] [place] [address] Return in about 3 months (around 03/12/2025). 05/12/2025 12:45 PM EDT CPE - Comprehensive Physical Exam [facility] [place] [address] [place] [phone] Tiffanie Rebolledo, CURB SUPERVISOR [address] [place] [address] Last CPE: Not Found 06/11/2025 11:05 AM EDT Office Visit [facility] [address] [place] [phone] Siomara Li MD [address] [place] [phone] Keep this appt and Dr Britt can discuss at the January visit keep or move out documented as of this encounter Visit Diagnoses Not on filedocumented in this encounter Additional Health Concerns Infection Onset Date Last Indicated Resolved Time COVID-19 Rule-Out 09/12/2020 09/12/2020 12/07/2020 8:13 PM EST documented as of this encounter Care Teams Conventions Assistant Relationship Specialty Start Date End Date Joaquín Izquierdo MD [address] [place] [address] PCP - General 01/14/06 04/21/22 Joaquín Frazier MD [address] [place] [address] PCP - General Family Medicine 04/22/22 documented as of this encounter
--- OUTSIDE RECORDS SUMMARY | 2025-01-21 18:20 | XMS_ITS | Encounter Summary ---
Author Organization [facility] Address [address] [place] [address] Care Team Providers Care Company Secretary Name Role Phone Johnny Frazier MD Primary Care Provider [phone] Encounter Details Date Type Department Care Team (Late st Contact Info) Description 05/10/2022 Orders Only [facility] [address] [place] [phone] Johnny Izquierdo MD [address] [place], [place] [phone] Social History Tobacco Use Types Packs/Day Years [...] Encounter Note - Johnny Izquierdo MD - 05/10/2022 10:42 AM EDT Average sugar is lower but cholesterol remains mildly elevated despite atorvastatin 40 mg. Patient has ov this week * Result Encounter Note - Johnny Izquierdo MD - 05/10/2022 10:42 AM EDT Normal urine test letter sent documented in this encounter Plan of Treatment Upcoming Encounters Date Type Department Care Team (Latest Contact Info) Description 02/07/2025 9:25 AM EDT Office Visit [facility] [address] [place] [phone] Siomara Li MD [address] [place] [address] Return in about 3 months (around 03/12/2025). 05/12/2025 12:45 PM EDT CPE - Comprehensive Physical Exam [address] [address] Tiffanie Rebolledo, DUMPER BAILER OPERATOR [address] [place] [address] Last CPE: Not Found 06/11/2025 11:05 AM EDT Office Visit [facility] [address] [place] [phone] Siomara Li MD [address] [place] [address] Keep this appt and Dr Britt can [...] this encounter Procedures * Due to [place] state law, this organization might not be sharing negative HIV tests. Procedure Name Priority Date/Time Associated Diagnosis Comments HEMOGLOBIN A1C Routine 05/10/2022 10:42 AM EDT Controlled type 2 diabetes mellitus with stage 1 chronic kidney disease, without long-term current use of insulin ALBUMIN (MICROALBUMIN), RANDOM URINE, WITH CREATININE Routine 05/10/2022 10:42 AM EDT Controlled type 2 diabetes mellitus with stage 1 chronic kidney disease, without long-term current use of insulin LIPID PANEL WITH REFLEX TO DIRECT LDL Routine 05/10/2022 10:42 AM EDT Controlled type 2 diabetes mellitus with stage 1 chronic kidney disease, without long-term current use of insulin VENIPUNCTURE Routine 05/10/2022 10:42 AM EDT Controlled type 2 diabetes mellitus with stage 1 chronic kidney disease, without long-term current use of insulin documented in this encounter Results * Due to [place] state law, this organization might not be sharing negative HIV tests. * (ABNORMAL) HEMOGLOBIN A1C (05/10/2022 10:42 AM EDT) Hemoglobin A1C 6.6(H) <5.7 % [...] Average Glucose 158 mg/dL (calc) [facility] 05/10/2022 10:4 2 AM EDT 05/10/2022 11:27 PM EDT Narrative Resulting Agency Comment [id number] us Johnny Izquierdo MD LABORATORY Final Result [facility] [address] [place] [address] * (ABNORMAL) LIPID PANEL WITH REFLEX TO DIRECT LDL (05/10/2022 10:42 AM EDT) Cholesterol 200(H) <200 mg/dL [facility] HDL Cholesterol 33(L) > OR = 50 mg/dL [facility] Triglyceride 267(H) <150 mg/dL [facility] Comment: If a non-fasting specimen was collected, consider repeat triglyceride testing on a fasting specimen if clinically indicated. Deloris et al. J. of Clin. Lipidol. 2015;9:129-169. LDL Cholesterol 126(H) mg/dL (calc) [facility] Comment: Reference range: [...] LDL-C. Bobby SS et al. HECTOR. 2013;310(19): 6553-9404 (http://education.MoPals/faq/OUJ532) CHOL/HDL Ratio 6.1(H) <5.0 (calc) [facility] Cholesterol Non-HDL 167(H) <130 mg/dL (calc) [facility] Comment: For patients with diabetes plus 1 major ASCVD risk factor, treating to a non-HDL-C goal of <100 mg/dL (LDL-C of <70 mg/dL) is considered a therapeutic option. 05/10/2022 10:4 2 AM EDT 05/10/2022 11:27 PM EDT Narrative Resulting Agency Comment [id number] us Johnny Izquierdo MD LABORATORY Final Result [facility] [address] [place] [address] * ALBUMIN (MICROALBUMIN), RANDOM URINE, WITH CREATININE (05/10/2022 10:42 AM EDT) Creatinine (Urine) 94 20 - 275 mg/dL [facility] Albumin (Urine) 1.7 mg/dL [facility] Comment: Reference Range Not established Albumin/Creatinine (Urine) 18 <30 mcg/mg creat [facility] Comment: The ADA defines abnormalities in albumin excretion as follows: Albuminuria Category ?Result (mcg/mg creatinine) Normal to Mildly increased ?? <30 Moderately increased ? 30-299 Severely increased ? > OR = 300 The ADA recommends that at least two of three specimens collected within a 3-6 month period be abnormal before considering a patient to be within a diagnostic category. 05/10/2022 10:4 2 AM EDT 05/10/2022 11:27 PM EDT Narrative Resulting Agency Comment [id number] us Johnny Izquierdo MD LABORATORY Final Result [facility] [address] [place] [address] * (ABNORMAL) BASIC METABOLIC PANEL WITH (GFR) (05/10/2022 10:42 AM EDT) Glucose 156(H) 65 - 99 mg/dL [facility] Comment: ? Fasting reference interval For someone without known diabetes, a glucose value >125 mg/dL indicates that they may have diabetes and this should be confirmed with a follow-up test. Urea Nitrogen Blood (BUN) 16 7 - 25 mg/dL [facility] Creatinine 1.01(H) 0.60 - 1.00 mg/dL [facility] EGFR 60 > OR = 60 mL/min/1.7 3m2 [facility] Comment: The eGFR is based on the CKD-EPI 2020 equation. To calculate the new eGFR from a previous Creatinine or Cystatin C result, go to https://www.kidney.org/professionals/ kdoqi/gfr%5Fcalculator BUN/Creatinine Ratio 16 6 - 22 (calc) [facility] Sodium 141 135 - 146 mmol/L [facility] Potassium 4.4 3.5 - 5.3 mmol/L [facility] Chloride 103 98 - 110 mmol/L [facility] Carbon dioxide 30 20 - 32 mmol/L [facility] Calcium 10.3 8.6 - 10.4 mg/dL [facility] 05/10/2022 10:4 2 AM EDT 05/10/2022 11:27 PM EDT Narrative [facility] - 05/11/2022 2:45 AM EDT Please note that this estimated [...] needs for GFR calculation. Resulting Agency Comment [id number] Johnny Izquierdo MD LABORATORY Final Result [facility] [address] [place] [address] documented in this encounter Visit Diagnoses Diagnosis Controlled type 2 diabetes mellitus with stage 1 chronic kidney disease, without long-term current use of insulin (HCC) documented in this encounter Care Teams Company Secretary Relationship Specialty Start Date End Date Johnny Frazier MD [address] [place] [address] PCP - General Family Medicine 04/22/22 documented as of this encounter
--- OUTSIDE RECORDS SUMMARY | 2025-01-21 18:20 | XMS_ITS | Encounter Summary ---
Author Organization [facility] Address [address] [place] [address] Care Team Providers Care Manager Corporate Strategy Name Role Phone Johnny Izquierdo MD Primary Care Provider [phone] Johnny Frazier MD Primary Care Provider [phone] Encounter Details Date Type Department Care Team (Late st Contact Info) Description 01/18/2021 Orders Only [facility] [address] [place] [phone] Tiffanie Rebolledo, ASSOCIATE MERCHANDISER [address] [place] [address] Social History Tobacco Use Types Packs/Day Years [...] AM EDT documented as of this encounter Plan of Treatment Upcoming Encounters Date Type Department Care Team (Latest Contact Info) Description 02/07/2025 9:25 AM EDT Office Visit [facility] [address] [place] [address] Siomara Li MD [address] [place] [address] Return in about 3 months (around 03/12/2025). 05/12/2025 12:45 PM EDT CPE - Comprehensive Physical Exam [facility] [place] [facility] [address] [place] [address] Tiffanie Rebolledo, ASSOCIATE MERCHANDISER [address] [place] [address] Last CPE: Not Found 06/11/2025 11:05 AM EDT Office Visit [facility] [address] [place] [phone] Siomara Li MD [address] [place] [address] Keep this appt and Dr Britt can [...] Procedure Name Priority Date/Time Associated Diagnosis Comments VENIPUNCTURE Routine 01/18/2021 12:01 PM EDT Hyperlipidemia with target LDL less than 100 documented in this encounter Results * Due to [place] law, this organization might not be sharing negative HIV tests. * (ABNORMAL) HEPATIC FUNCTION PANEL (ALT,AST,ALK PH,BILI'S,TP,ALB) (01/18/2021 12:01 PM EDT) Protein Total (Serum) 7.4 6.1 - 8.1 g/dL [facility] Albumin 4.2 3.6 - 5.1 g/dL [facility] Globulin 3.2 1.9 - 3.7 g/dL (calc) [facility] Albumin/Globulin 1.3 1.0 - 2.5 (calc) [facility] Bilirubin Total 0.4 0.2 - 1.2 mg/dL [facility] Bilirubin Direct 0.1 < OR = 0.2 mg/dL [facility] Bilirubin Indirect 0.3 0.2 - 1.2 mg/dL (calc) [facility] Alkaline phosphatase 85 37 - 153 U/L [facility] AST (SGOT) 27 10 - 35 U/L [facility] ALT (SGPT) 38(H) 6 - 29 U/L [facility] 01/18/2021 12:0 1 PM EDT 01/18/2021 1:29 PM EDT Narrative Resulting Agency Comment [id number] us Tiffanie Rebolledo NP LABORATORY Final Result [facility] [address] [place] [address] documented in this encounter Visit Diagnoses Diagnosis Hyperlipidemia with target LDL less than 100 Other and unspecified hyperlipidemia documented in this encounter Care Teams Manager Corporate Strategy Relationship Specialty Start Date End Date Johnny Izquierdo MD [address] [place] [address] PCP - General 01/14/06 04/21/22 Johnny Frazier MD [address] [facility] [place] [address] PCP - General Family Medicine 04/22/22 documented as of this encounter
--- OUTSIDE RECORDS SUMMARY | 2025-01-21 18:20 | XMS_ITS | Encounter Summary ---
Author Organization [facility] Address [address] [place] [address] Care Team Providers Care Social Insurance Administrator Name Role Phone Johnny Izquierdo MD Primary Care Provider [phone] Johnny Frazier MD Primary Care Provider [phone] Reason for Visit * Reason Onset Date Comments Letter/form Request 05/26/2011 Encounter Details Date Type Department Care Team (Late st Contact Info) Description 05/26/2011 Telephone [facility] [address] [facility], [address] Johnny Izquierdo MD [address] [place] [phone] Letter/form Request Social History Tobacco Use Types Packs/Day [...] encounter Miscellaneous Notes * Telephone Encounter - Lupis Husain - 05/26/2011 4:01 PM EDT Received request from patient for disability form. Would like this form completed as soon as possible. When completed, please call Tatum Fine at this phone number- [phone] for pharmacy picking technician at office. Informed patient that this would take a minimum of 7-10 business days to complete. Sent this form to Dr Izquierdo inbox. documented in this encounter Plan of Treatment Upcoming Encounters Date Type Department Care Team (Latest Contact Info) Description 02/07/2025 9:25 AM EDT Office Visit [facility] [address] [place] [address] Siomara Li MD [address] [place] [address] Return in about 3 months (around 03/12/2025). 05/12/2025 12:45 PM EDT CPE - Comprehensive Physical Exam [facility] [address] [place] [address] Tiffanie Rebolledo, SOPHIE [address] [place] [address] Last CPE: Not Found 06/11/2025 11:05 AM EDT Office Visit [facility] [address] [place] [address] Siomara Li MD [address] [place] [address] Keep this appt and Dr Britt can discuss at the January visit keep or move out documented as of this encounter Visit Diagnoses Not on filedocumented in this encounter Additional Health Concerns Infection Onset Date Last Indicated Resolved Time COVID-19 Rule-Out 09/12/2020 09/12/2020 12/07/2020 8:13 PM EST documented as of this encounter Care Teams Social Insurance Administrator Relationship Specialty Start Date End Date Johnny Izquierdo MD [address] [place] [address] PCP - General 01/14/06 04/21/22 Johnny Frazier MD [address] [facility] [place] [address] PCP - General Family Medicine 04/22/22 documented as of this encounter
--- OUTSIDE RECORDS SUMMARY | 2025-01-21 18:20 | XMS_ITS | Encounter Summary ---
Author Organization [facility] Address [address] [place] [address] Care Team Providers Care Helpdesk Specialist Name Role Phone Johnny Izquierdo MD Primary Care Provider [phone] Johnny Frazier MD Primary Care Provider [phone] Encounter Details Date Type Department Care Team (Late st Contact Info) Description 09/09/2011 Orders Only [facility] [address] [place] [phone] Johnny Izquierdo MD [address] [place], [place] [phone] Social History Tobacco Use Types Packs/Day Years [...] Progress Notes * Lianna Meléndez NP - 09/13/2011 2:40 PM Abbi Note: Discussed in ov * Lianna Meléndez NP - 09/12/2011 10:48 AM Gemick Note: Labs pending as of 09/12/11, appt 09/13/11 documented in this encounter Plan of Treatment Upcoming Encounters Date Type Department Care Team (Latest Contact Info) Description 02/07/2025 9:25 AM EDT Office Visit [facility] [address] [place] [address] Siomara Li MD [address] [place] [address] Return in about 3 months (around 03/12/2025). 05/12/2025 12:45 PM EDT CPE - Comprehensive Physical Exam [facility] [address] [place] [phone] Tiffanie Rebolledo NP [address] [place] [address] Last CPE: Not Found 06/11/2025 11:05 AM EDT Office Visit [facility] [address] [place] [phone] Siomara Li MD [address] [place] [address] Keep this appt and Dr Britt can discuss at the January visit keep or move out documented as of this encounter Procedures * Due to [place] state law, this organization might not be sharing negative HIV tests. Procedure Name Priority Date/Time Associated Diagnosis Comments ASPARTATE AMINOTRANSFERASE (AST), SERUM Routine 09/09/2011 9:28 AM EST Diabetes mellitus THYROID CASCADING REFLEX Routine 011 9:28 AM EST Hypothyroidism HEMOGLOBIN A1C Routine 09/09/2011 9:28 AM EST Diabetes mellitus ALBUMIN (MICROALBUMIN), RANDOM URINE, WITH CREATININE Routine 09/09/2011 9:28 AM EST Diabetes mellitus LIPID PANEL WITH REFLEX TO DIRECT LDL Routine 09/09/2011 9:28 AM EST Diabetes mellitus BASIC METABOLIC PANEL WITH (GFR) Routine 09/09/2011 9:28 AM EST Diabetes mellitus documented in this encounter Results * Due to [place] state law, this organization might not be sharing negative HIV tests. * (ABNORMAL) THYROID CASCADING REFLEX (09/09/2011 9:28 AM EST) TSH 9.75(H) 0.40 - 4.50 mIU/L [facility] Comment:{TSH, 3RD GENERATION {[id number]) FT4 1.0 0.8 - 1.8 ng/dL [facility] Comment:{T4, FREE {[id number]) Thyroperoxidase Ab <10 <35 IU/mL Q [facility] Comment:{THYROID PEROXIDASE ANTIBODIES {[id number]) INTERPRETATION SEE NOTE [facility] Comment: {INTERPRETATION {[id number]) TSH result is high, FT4 is normal, TPO Ab are absent or low. Consistent with subclinical hypothyroidism or nonthyroidal illness (euthyroid sick syndrome). Moderate TSH increase and normal FT4 are often seen in euthyroid elderly patients and in patients with interfering antibodies (i.e. anti-animal antibodies). 09/09/2011 9:28 AM EST 09/09/2011 9:29 PM EST Narrative Resulting Agency Comment [id number] us Johnny Izquierdo MD LABORATORY Final Result [facility] [address] [place] [address] * BASIC METABOLIC PANEL WITH (GFR) (09/09/2011 9:28 AM EST) Glucose 70 65 - 99 mg/dL [facility] Comment: {GLUCOSE {[id number]) ? Fasting reference interval Urea Nitrogen Blood (BUN) 11 7 - 25 mg/dL [facility] Comment:{UREA NITROGEN (BUN) {[id number]) Creatinine 0.89 0.60 - 1.18 mg/dL [facility] Comment:{CREATININE {[id number]) GFR 70 > OR = 60 mL/min/1. 73m2 [facility] Comment:{eGFR NON-AFR. AMERI CAN {[id number]) GFR () 82 > OR = 60 mL/min/1. 73m2 [facility] Comment:{eGFR AMERIC AN {[id number]) BUN/Creatinine Ratio NOT APPLICABLE (calc) [facility] Comment:{BUN/CREATININE RATI O {[id number]) Sodium 140 135 - 146 mmol/L [facility] Comment:{SODIUM {[id number]) Potassium 4.3 3.5 - 5.3 mmol/L [facility] Comment:{POTASSIUM {[id number]) Chloride 106 98 - 110 mmol/L [facility] Comment:{CHLORIDE {[id number]) Carbon dioxide 27 21 - 33 mmol/L [facility] Comment:{CARBON DIOXIDE {[id number]) Calcium 8.8 8.6 - 10.2 mg/dL [facility] Comment:{CALCIUM {[id number]) 09/09/2011 9:28 AM EST 09/09/2011 9:29 PM EST Narrative [facility] - 09/10/2011 12:36 AM EST Please note that this estimated [...] needs for GFR calculation. Resulting Agency Comment [id number] us Johnny Izquierdo MD LABORATORY Final Result [facility] [address] [place] [address] * ALBUMIN (MICROALBUMIN), RANDOM URINE, WITH CREATININE (09/09/2011 9:28 AM EST) Creatinine (Urine) NOT DONE mg/dL [facility] Comment: {CREATININE, RANDOM URINE {[id number]) * Test Not Performed. ?* * Patient unable to void. ??* Albumin (Urine) NOT DONE mg/dL [facility] Comment: {MICROALBUMIN {[id number]) * Test Not Performed. ?* * Patient unable to void. ??* 09/09/2011 9:28 AM EST 09/09/2011 9:29 PM EST Narrative Resulting Agency Comment [id number] us Johnny Izquierdo MD LABORATORY Final Result Performing Organization Address City/[facility]/ZIP Co de Phone Number [facility] [address] [place] [address] * ASPARTATE AMINOTRANSFERASE (AST), SERUM (09/09/2011 9:28 AM EST) AST (SGOT) 14 10 - 35 U/L [facility] Comment:{AST {[id number]) 09/09/2011 9:28 AM EST 09/09/2011 9:29 PM EST Narrative Resulting Agency Comment [id number] us Johnny Izquierdo MD LAB SAME DAY RESULT Final Res ult Performing Organization Address City/[facility]/ZIP Co de Phone Number [facility] [address] [place] [address] * (ABNORMAL) LIPID PANEL WITH REFLEX TO DIRECT LDL (09/09/2011 9:28 AM EST) Cholesterol 155 125 - 200 mg/dL [facility] Comment:{CHOLESTEROL, TOTAL {[id number]) HDL Cholesterol 20(L) > OR = 46 mg/dL [facility] Comment:{HDL CHOLESTEROL {[id number]) Triglyceride 247(H) <150 mg/dL [facility] Comment:{TRIGLYCERIDES {[id number]) LDL Cholesterol 86 <130 mg/dL (calc) [facility] Comment: {LDL-CHOLESTEROL {[id number]) Desirable range <100 mg/dL for patients with CHD or diabetes and <70 mg/dL for diabetic patients with known heart disease. CHOL/HDL Ratio 7.8(H) < OR = 5.0 (calc) [facility] Comment:{CHOL/HDLC RATIO {[id number]) 09/09/2011 9:28 AM EST 09/09/2011 9:29 PM EST Narrative Resulting Agency Comment [id number] Johnny Izquierdo MD LABORATORY Final Result Performing Organization Address City/State/[facility] de Phone Number [facility] [address] [place] [address] * (ABNORMAL) HEMOGLOBIN A1C (09/09/2011 9:28 AM EST) Hemoglobin A1C 5.7(H) <5.7 % of total Hgb [facility] Comment: {HEMOGLOBIN A1c {[id number]) ?Increased risk of diabetes ? <5.7 ? Decreased risk of diabetes ? 5.7-6.0 ?Increased risk of diabetes ? 6.1-6.4 ?Higher risk of diabetes ? > or = 6.5 Consistent with diabetes ?Standards of Medical Care in Diabetes-2010. ?Diabetes Care, 33(Supp 1): S1-S61,2010. Estimated Average Glucose 126 mg/dL (calc) [facility] Comment:{MEAN PLASMA GLUCOSE {[id number]) 09/09/2011 9:28 AM EST 09/09/2011 9:29 PM EST Narrative Resulting Agency Comment [id number] Johnny Izquierdo MD LABORATORY Final Result [facility] [address] [place] [address] documented in this encounter Visit Diagnoses Diagnosis Diabetes mellitus (HCC) Type II or unspecified type diabetes mellitus without mention of complication, not stated as uncontrolled Hypothyroidism Unspecified hypothyroidism documented in this encounter Additional Health Concerns Infection Onset Date Last Indicated Resolved Time COVID-19 Rule-Out 09/12/2020 09/12/2020 12/07/2020 8:13 PM EST documented as of this encounter Care Teams Helpdesk Specialist Relationship Specialty Start Date End Date Johnny Izquierdo MD [address] [place] [address] PCP - General 01/14/06 04/21/22 Johnny Frazier MD [address] [place] [address] PCP - General Family Medicine 04/22/22 documented as of this encounter
--- OUTSIDE RECORDS SUMMARY | 2025-01-21 18:20 | XMS_ITS | Encounter Summary ---
Author Organization [facility] Address [address] [place] [address] Care Team Providers Care Candy Puller Name Role Phone Johnny Izquierdo MD Primary Care Provider [phone] Johnny Frazier MD Primary Care Provider [phone] Reason for Visit * Reason Comments E-prescribing Refill Request Encounter Details Date Type Department Care Team (Late st Contact Info) Description 04/17/2021 Refill [facility] [address] [place] [phone] Johnny Izquierdo MD [address] [place] [address] E-prescribing Refill Request Social History Tobacco Use [...] Description 02/07/2025 9:25 AM EDT Office Visit [facility] [address] [place] [phone] Siomara Li MD [address] [place], [place] [phone] Return in about 3 months (around 03/12/2025). 05/12/2025 12:45 PM EDT CPE - Comprehensive Physical Exam [facility] [address] [place] [phone] Tiffanie Rebolledo, SOPHIE [address] [place] [address] Last CPE: Not Found 06/11/2025 11:05 AM EDT Office Visit [facility] [address] [place] [phone] Siomara Li MD [address] [place], [place] [phone] Keep this appt and Dr Britt can [...] as of this encounter Visit Diagnoses Diagnosis Type 2 diabetes mellitus without complication, without long-term current use of insulin (HCC) documented in this encounter Care Teams Candy Puller Relationship Specialty Start Date End Date Johnny Izquierdo MD [address] [place] [address] PCP - General 01/14/06 04/21/22 Johnny Frazier MD [address] [place] [address] PCP - General Family Medicine 04/22/22 documented as of this encounter
--- OUTSIDE RECORDS SUMMARY | 2025-01-21 18:20 | XMS_ITS | Encounter Summary ---
Author Organization [facility] Address [address] [place] [address] Care Team Providers Care Electronics Scale Tester Name Role Phone Johnny Izquierdo MD Primary Care Provider Johnny Frazier MD Primary Care Provider Encounter Details Date Type Department Care Team (Late st Contact Info) Description 03/10/2016 Orders Only [facility] [address] [place] [address] Arabella Ch, Tech [address] [place] [address] Medications Social History Tobacco Use Types Packs/Day [...] Functional Status documented as of this encounter Plan of Treatment Upcoming Encounters Date Type Department Care Team (Latest Contact Info) Description 02/07/2025 9:25 AM EDT Office Visit [facility] [address] [place] [phone] Siomara Li MD [address] [place], [place] [phone] Return in about 3 months (around 03/12/2025). 05/12/2025 12:45 PM EDT CPE - Comprehensive Physical Exam [facility] [address] [place] [phone] Tiffanie Rebolledo, ACUTE CARE SURGEON [address] [facility] [place] [address] Last CPE: Not Found 06/11/2025 11:05 AM EDT Office Visit [facility] [address] [place] [phone] Siomara Li MD [address] [place] [address] Keep this appt and Dr Britt can [...] documented as of this encounter Care Teams Electronics Scale Tester Relationship Specialty Start Date End Date Johnny Izquierdo MD [address] [facility] [address] PCP - General 01/14/06 04/21/22 Johnny Frazier MD [address] [facility] [place] [address] PCP - General Family Medicine 04/22/22 documented as of this encounter
--- OUTSIDE RECORDS SUMMARY | 2025-01-21 18:20 | XMS_ITS | Encounter Summary ---
Author Organization [facility] Address [address] [place] [address] Care Team Providers Care Field Care Manager Name Role Phone Johnny Izquierdo MD Primary Care Provider [phone] Johnny Frazier MD Primary Care Provider [phone] Encounter Details Date Type Department Care Team (Late st Contact Info) Description 2015 Orders Only [facility] [address] [place] [phone] Johnny Izquierdo MD [address] [place], [place] [phone] Social History Tobacco Use Types Packs/Day Years [...] as of this encounter Progress Notes * Kisha Coe - 08/03/2015 9:41 AM EDTQuick Note: Elevated TGs. A1C stable. OK to wait for PCP review. HM * Katy Antoine - 08/03/2015 9:26 AM EDTQuick Note: Please review. No Letter was generated. Patient has no upcoming appointment until February Forwarding to provider Dr. Coe. Forwarded to PCP for review upon return as well documented in this encounter Plan of Treatment Upcoming Encounters Date Type Department Care Team (Latest Contact Info) Description 02/07/2025 9:25 AM EDT Office Visit [facility] [address] [place] [phone] Siomara Li MD [address] [place] [address] Return in about 3 months (around 03/12/2025). 05/12/2025 12:45 PM EDT CPE - Comprehensive Physical Exam [address] [phone] Tiffanie Rebolledo, HEAT ENGINEERING TEACHER [address] [place] [address] Last CPE: Not Found 06/11/2025 11:05 AM EDT Office Visit [facility] [address] [place] [phone] Siomara Li MD [address] [place] [phone] Keep this appt and Dr Britt can [...] this encounter Procedures * Due to [place] state law, this organization might not be sharing negative HIV tests. Procedure Name Priority Date/Time Associated Diagnosis Comments HEMOGLOBIN A1C Routine 2015 11:35 AM EDT Type 2 diabetes mellitus without complication ALBUMIN (MICROALBUMIN), RANDOM URINE, WITH CREATININE Routine 2015 11:35 AM EDT Hyperlipidemia, unspecified Chronic nonalcoholic liver disease LIPID PANEL WITH REFLEX TO DIRECT LDL Routine 2015 11:35 AM EDT Hyperlipidemia, unspecified Chronic nonalcoholic liver disease BASIC METABOLIC PANEL WITH (GFR) Routine 2015 11:35 AM EDT Hyperlipidemia, unspecified Chronic nonalcoholic liver disease documented in this encounter Results * Due to [place] state law, this organization might not be sharing negative HIV tests. * BASIC METABOLIC PANEL WITH (GFR) (2015 11:35 AM EDT) Glucose 88 65 - 99 mg/dL [facility] Comment: {GLUCOSE {[id number]) ? Fasting reference interval Urea Nitrogen Blood (BUN) 18 7 - 25 mg/dL [facility] Comment:{UREA NITROGEN (BUN) {[id number]) Creatinine 0.90 0.50 - 0.99 mg/dL [facility] Comment: {CREATININE {[id number]) For patients >49 years of age, the reference limit for Creatinine is approximately 13% higher for people identified as -South African. GFR 68 > OR = 60 mL/min/1 .73m2 [facility] Comment:{eGFR NON-AFR. AMERI CAN {[id number]) GFR () 78 > OR = 60 mL/min/1 .73m2 [facility] Comment:{eGFR AMERIC AN {[id number]) BUN/Creatinine Ratio NOT APPLICABLE 6 - 22 (calc) [facility] Comment:{BUN/CREATININE RATI O {[id number]) Sodium 137 135 - 146 mmol/L [facility] Comment:{SODIUM {[id number]) Potassium 4.6 3.5 - 5.3 mmol/L [facility] Comment:{POTASSIUM {[id number]) Chloride 101 98 - 110 mmol/L [facility] Comment:{CHLORIDE {[id number]) Carbon dioxide 27 19 - 30 mmol/L [facility] Comment:{CARBON DIOXIDE {[id number]) Calcium 9.6 8.6 - 10.4 mg/dL [facility] Comment:{CALCIUM {[id number]) 2015 11:3 5 AM EDT 2015 7:31 PM EDT Narrative [facility] - 2015 10:35 PM EDT Please note that this estimated [...] needs for GFR calculation. Resulting Agency Comment [id number] us Johnny Izquierdo MD LABORATORY Final Result [facility] [address] [place] [address] * ALBUMIN (MICROALBUMIN), RANDOM URINE, WITH CREATININE (2015 11:35 AM EDT) Creatinine (Urine) 54 20 - 320 mg/dL [facility] Comment:{CREATININE, RANDOM URINE {[id number]) Albumin (Urine) <0.2 mg/dL [facility] Comment: {MICROALBUMIN {[id number]) Reference Range Not established Albumin/Creatinine (Urine) NOTE <30 mcg/mg creat [facility] Comment: {MICROALBUMIN/CREATININE RATIO, RANDOM URINE {[id number]) The microalbumin value is less than 0.2 [...] patient to be within a diagnostic category. 2015 11:3 5 AM EDT 2015 7:31 PM EDT Narrative Resulting Agency Comment [id number] Johnny Izquierdo MD LABORATORY Final Result Performing Organization Address [facility] Co de Phone Number [facility] [address] [place] [address] * (ABNORMAL) LIPID PANEL WITH REFLEX TO DIRECT LDL (2015 11:35 AM EDT) Cholesterol 181 125 - 200 mg/dL [facility] Comment:{CHOLESTEROL, TOTAL {[id number]) HDL Cholesterol 25(L) > OR = 46 mg/dL [facility] Comment:{HDL CHOLESTEROL {[id number]) Triglyceride 232(H) <150 mg/dL [facility] Comment:{TRIGLYCERIDES {[id number]) LDL Cholesterol 110 <130 mg/dL (calc) [facility] Comment: {LDL-CHOLESTEROL {[id number]) Desirable range <100 mg/dL for patients with CHD or diabetes and <70 mg/dL for diabetic patients with known heart disease. CHOL/HDL Ratio 7.2(H) < OR = 5.0 (calc) [facility] Comment:{CHOL/HDLC RATIO {[id number]) Cholesterol Non-HDL 156 mg/dL (calc) [facility] Comment: {NON HDL CHOLESTEROL {[id number]) Target for non-HDL cholesterol is 30 mg/dL higher than LDL cholesterol target. 2015 11:3 5 AM EDT 2015 7:31 PM EDT Narrative Resulting Agency Comment [id number] us Johnny Izquierdo MD LABORATORY Final Result Performing Organization Address City/[facility]/ZIP Co de Phone Number [facility] [address] [place] [address] * (ABNORMAL) HEMOGLOBIN A1C (2015 11:35 AM EDT) Hemoglobin A1C 5.9(H) <5.7 % of total Hgb [facility] Comment: {HEMOGLOBIN A1c {[id number]) According to ADA guidelines, hemoglobin A1c <7.0% [...] children. Estimated Average Glucose 133 mg/dL (calc) [facility] Comment:{MEAN PLASMA GLUCOSE {[id number]) 2015 11:3 5 AM EDT 2015 7:31 PM EDT Narrative Resulting Agency Comment [id number] Johnny Izquierdo MD LABORATORY Final Result Performing Organization Address City/State/[facility] Co de Phone Number [facility] [address] [place] [address] documented in this encounter Visit Diagnoses Diagnosis Type 2 diabetes mellitus without complication (HCC) Type II or unspecified type diabetes mellitus without mention of complication, not stated as uncontrolled Hyperlipidemia, unspecified Chronic nonalcoholic liver disease Unspecified chronic liver disease without mention of alcohol documented in this encounter Additional Health Concerns Infection Onset Date Last Indicated Resolved Time COVID-19 Rule-Out 09/12/2020 09/12/2020 12/07/2020 8:13 PM EST documented as of this encounter Care Teams Field Care Manager Relationship Specialty Start Date End Date Johnny Izquierdo MD [address] [place] [address] PCP - General 01/14/06 04/21/22 Johnny Frazier MD [address] [place] [address] PCP - General Family Medicine 04/22/22 documented as of this encounter
--- OUTSIDE RECORDS SUMMARY | 2025-01-21 18:20 | XMS_ITS | Encounter Summary ---
Author Organization [facility] Address [address] [place] [address] Care Team Providers Care Law Enforcement Director Name Role Phone Johnny Izquierdo MD Primary Care Provider [phone] Johnny Frazier MD Primary Care Provider [phone] Reason for Visit * Reason Comments Eliseo Kirkland Erroneous encounter-disregard Encounter Details Date Type Department Care Team (Late st Contact Info) Description 02/09/2017 Telephone [facility] LICENSE ISSUER [address] [place] [phone] Eliseo Kirkland MD [address] [place] [address] Eliseo Kirkland; Erroneous encounter-disregard Social History Tobacco Use Types Packs/Day Years Used Date Smoking Tobacco: Every Day Cigarettes 1 56.5 Started: 07/19/1967 Smokeless Tobacco: Current Comments:/2 ppd Alcohol Use Standard Drinks/Week Comments Yes 0 (1 standard drink = 0.6 oz pur e alcohol) occasional drink Comments No Sex and Gender Information Value Date Recorded Sex Assigned at Not on file Legal Sex Female 6:50 PM EDT Gender Identity Not on file Sexual Orientation Not on file documented as of this encounter Miscellaneous Notes * Telephone Encounter - Carlota Gomez RN - 02/21/2017 9:42 AM EDT Erroneous note See encounter dated 02/20/17 for corrected entry * Telephone Encounter - Carlota Gomez RN - 02/21/2017 8:59 AM EDT Erroneous entry * Telephone Encounter - Roselia Gill LPN - 02/09/2017 11:32 AM EDT Called patient to see how she is doing Surgery [place] 02[place]08[place] [facility] [place] ANTERIOR & POSTERIOR REPAIR CYSTOSCOPY PERINEORRHAPHY w/ Dr Kirkland documented in this encounter Plan of Treatment Upcoming Encounters Date Type Department Care Team (Latest Contact Info) Description 02/07/2025 9:25 AM EDT Office Visit [facility] [address] [place] [phone] Siomara Li MD [address] [place] [address] Return in about 3 months (around 03/12/2025). 05/12/2025 12:45 PM EDT CPE - Comprehensive Physical Exam [facility] [address] [place] [address] Tiffanie Rebolledo NP [address] [place] [address] Last CPE: Not Found 06/11/2025 11:05 AM EDT Office Visit [facility] [address] [place] [address] Siomara Li MD [address] [place] [address] Keep this appt and Dr Britt can [...] documented as of this encounter Care Teams Law Enforcement Director Relationship Specialty Start Date End Date Johnny Izquierdo MD [address] [place] [address] PCP - General 01/14/06 04/21/22 Johnny Frazier MD [address] [place] [address] PCP - General Family Medicine 04/22/22 documented as of this encounter
--- OUTSIDE RECORDS SUMMARY | 2025-01-21 18:20 | XMS_ITS | Encounter Summary ---
Author Organization [facility] Address [address] [place] [address] Care Team Providers Care Switch Repairer Name Role Phone Johnny Izquierdo MD Primary Care Provider [phone] Johnny Frazier MD Primary Care Provider [phone] Reason for Visit * Reason Comments E-prescribing Refill Request Encounter Details Date Type Department Care Team (Late st Contact Info) Description 04/11/2022 Refill [facility] [address] [place] [phone] Tiffanie Rebolledo, HAND CIGAR MAKING SUPERVISOR [address] [place] [address] E-prescribing Refill Request Social History Tobacco Use [...] encounter Miscellaneous Notes * Telephone Encounter - Mary Kuhn CMA - 04/11/2022 11:23 AM EDT Concerns for Provider Review: None Pharmacy Confirmed? The most recent pharmacy on file was used. When is the medication needed? within 48 hours, will send routine message Past Appointments: Last CPE: 05/29/2017 Last appointment in this department: 09/21/2021 Future Appointments Date Time Provider Department Phone 04/12/22 10:15 AM Jae Grant MD [facility] [phone] 04/20/22 2:05 PM Siomara Li MD [facility] [phone] 04/21/22 11:40 AM Johnny Frazier MD [facility] [phone] Pertinent lab results: Lab Results Component Value Date SODIUM 137 07/21/2021 POTASSIUM 4.6 07/21/2021 CHLOR 100 07/21/2021 CO2 27 07/21/2021 BUN 14 07/21/2021 CREATININE 0.95 07/21/2021 GFR 61 07/21/2021 GLUCOSE 100 (H) 07/21/2021 LESIA 9.9 07/21/2021 An overdue or due soon order for a Basic, Potassium or Creatinine exists. An open order for Basic exists. Lab Results Component Value Date VITB12 480 03/06/2019 An open order for Vitamin B12 does not exist. Lab Results Component Value Date MICROALBUMIN 0.3 01/18/2021 ALBCRRU 7 01/18/2021 An overdue or due soon open order for MALB exists. Lab Results Component Value Date CHOLESTEROL 186 01/18/2021 HDL 31 (L) 01/18/2021 LDL 120 (H) 01/18/2021 TRIGLYCERIDE 229 (H) 01/18/2021 An overdue or due soon open order for Lipids exists. Lab Results Component Value Date A1C 7.0 (H) 08/30/2021 An overdue or due soon open order for A1C exists. Lipid, Basic, MALB yearly and A1C every 6 months recommended as minimum for chronic therapy. Based on last lab testing intervals, 1 month supply suggested for diabetic medications. Please arrange updated lab monitoring. Metformin containing medication has been ordered which requires B12 yearly. Including this additional requirement, 1 month supply suggested for Metformin containing medications BP Readings from Last 1 Encounters: 09/21/21 (!) 147/77 Pended medication order(s) and sent to provider. Patient expects medication renewal unless notifiedotherwise. Outstanding Lab Orders (Orders in bold are overdue or due now and should be done as soon as possible) Test Expected Date Ordering Provider HEMOGLOBIN A1C 02/18/2022 Johnny Izquierdo MD LIPID PANEL WITH REFLEX TO DIRECT LDL 02/18/2022 Johnny Izquierdo MD ALBUMIN (MICROALBUMIN), RANDOM URINE, WITH CREATININE 02/18/2022 Johnny Izquierdo MD BASIC METABOLIC PANEL WITH (GFR) 02/18/2022 Johnny Izquierdo MD Outstanding Radiology Orders Test Ordered Date Ordering Provider MAMMOGRAPHY BILAT 3D FELIX(DX:SCREENING FOR BREAST CA Z12.31)FC 02/23/[address] CHEST W/O CONTRAST (ASYMPTOMATIC ONLY DX:LUNG CA SCRN V76.0/Z12.2)(1 YR FROM LAST) FC 09/21/2021Johnny Izquierdo MD DXA BONE DENSITY STUDY AXIAL (LSSPINE, HIP) FC Johnny Izquierdo MD documented in this encounter Plan of Treatment Upcoming Encounters Date Type Department Care Team (Latest Contact Info) Description 02/07/2025 9:25 AM EDT Office Visit [facility] [address] [place] [phone] Siomara Li MD [address] [place] [address] Return in about 3 months (around 03/12/2025). 05/12/2025 12:45 PM EDT CPE - Comprehensive Physical Exam [facility] [address] [place] [phone] Tiffanie Rebolledo NP [address] [place] [address] Last CPE: Not Found 06/11/2025 11:05 AM EDT Office Visit [facility] [address] [place] [phone] Siomara Li MD [address] [place] [address] Keep this appt and Dr Britt can [...] (HCC) documented in this encounter Care Teams Switch Repairer Relationship Specialty Start Date End Date Johnny Izquierdo MD [address] [place] [address] PCP - General 01/14/06 04/21/22 Johnny Frazier MD [address] [place] [address] PCP - General Family Medicine 04/22/22 documented as of this encounter
--- OUTSIDE RECORDS SUMMARY | 2025-01-21 18:20 | XMS_ITS | Encounter Summary ---
Author Organization [facility] Address [address] [place] [address] Care Team Providers Care Community Cultural Development Officer Name Role Phone Johnny Izquierdo MD Primary Care Provider [phone] Johnny Frazier MD Primary Care Provider [phone] Reason for Visit * Reason Onset Date Comments E-prescribing Refill Request Refill Request 03/01/2022 Encounter Details Date Type Department Care Team (Late st Contact Info) Description 03/01/2022 Refill [facility] DYE AND CHEMICAL COORDINATOR [address] [facility] [address] [place] [phone] Sonia Waters, BLOOD BANK CREDIT CLERK [address] [place] [address] E-prescribing Refill Request; Refill Request Social History Tobacco Use Types [...] encounter Miscellaneous Notes * Telephone Encounter - Emma Houston LVN LPN - 03/01/2022 9:55 AM EDT Called patient, left message on home phone (mobile does not have voicemail set up yet), to call back regarding refill request documented in this encounter Plan of Treatment Upcoming Encounters Date Type Department Care Team (Latest Contact Info) Description 02/07/2025 9:25 AM EDT Office Visit [facility] [address] [place] [phone] Siomara Li MD [address] [place] [address] Return in about 3 months (around 03/12/2025). 05/12/2025 12:45 PM EDT CPE - Comprehensive Physical Exam [address] [phone] Tiffanie Rebolledo, BLOOD BANK CREDIT CLERK [address] [place] [address] Last CPE: Not Found 06/11/2025 11:05 AM EDT Office Visit [facility] [address] [place] [phone] Siomara Li MD [address] [place] [address] Keep this appt and Dr Britt can [...] as of this encounter Visit Diagnoses Diagnosis OAB (overactive bladder) Hypertonicity of bladder documented in this encounter Care Teams Community Cultural Development Officer Relationship Specialty Start Date End Date Johnny Izquierdo MD [address] [place] [address] PCP - General 01/14/06 04/21/22 Johnny Frazier MD [address] [place] [address] PCP - General Family Medicine 04/22/22 documented as of this encounter
--- OUTSIDE RECORDS SUMMARY | 2025-01-21 18:20 | XMS_ITS | Encounter Summary ---
Author Organization [facility] Address [address] [place] [address] Care Team Providers Care Claims Adjuster Supervisor Name Role Phone Johnny Izquierdo MD Primary Care Provider [phone] Johnny Frazier MD Primary Care Provider [phone] Encounter Details Date Type Department Care Team (Late Contact Info) Description 08/28/2015 [facility] FINISHER MAP AND CHART [address] [facility] [address] [place] [phone] Erich Horvath MD Social History Tobacco Use [...] Description 02/07/2025 9:25 AM EDT Office Visit [facility] [address] [place] [phone] Siomara Li MD [address] [place], [place] [phone] Return in about 3 months (around 03/12/2025). 05/12/2025 12:45 PM EDT CPE - Comprehensive Physical Exam [facility] [address] [place] [phone] Tiffanie Rebolledo NP [address] [facility] [place] [address] Last CPE: Not Found 06/11/2025 11:05 AM EDT Office Visit [facility] [address] [place] [address] Siomara Li MD [address] [place] [address] Keep this appt and Dr Britt can [...] Ricarda Weeks documented as of this encounter Results * Due to [place] state law, this organization might not be sharing negative HIV tests. * CULTURE, URINE, ROUTINE (09/09/2015 5:54 PM EST) Bacteria culture (Urine) SEE NOTE [facility] Comment: {CULTURE, URINE, ROUTINE {[id number]) ??CULTURE, URINE, ROUTINE ??MICRO NUMBER: ?[id number] ??TEST STATUS: ? FINAL ??SPECIMEN SOURCE: ?? URINE ??SPECIMEN QUALITY: ??ADEQUATE ??RESULT: ?Multiple organisms present, each less than 10,000 ? CFU/mL. These organisms, commonly found on ? external and internal genitalia, are considered ? to be colonizers. No further testing performed. 09/09/2015 5:54 PM EST 09/09/2015 9:52 PM EST Narrative Resulting Agency Comment [id number] Erich Horvath MD LABORATORY Final Result Performing Organization Address [facility]/ZIP Co de Phone Number [facility] [address] [place] [address] * URINALYSIS DIP W/ REFLEX TO MICROSCOPIC+CULTURE (09/09/2015 5:54 PM EST) Color (Urine) YELLOW YELLOW [facility] Comment:{COLOR {[id number]) Appearance (Urine) CLEAR CLEAR [facility] Comment:{APPEARANCE {[id number]) Specific gravity (Urine) 1.008 1.001 - 1.035 [facility] Comment:{SPECIFIC GRAVITY {[id number]) pH (Urine) 6.5 5.0 - 8.0 [facility] Comment:{PH {[id number]) Glucose (Urine) NEGATIVE NEGATIVE [facility] Comment:{GLUCOSE {[id number]) Bilirubin (Urine) NEGATIVE NEGATIVE [facility] Comment:{BILIRUBIN {[id number]) Ketones (Urine) NEGATIVE NEGATIVE [facility] Comment:{KETONES {[id number]) Hemoglobin (Urine) NEGATIVE NEGATIVE [facility] Comment:{OCCULT BLOOD {[id number]) Protein (Urine) NEGATIVE NEGATIVE [facility] Comment:{PROTEIN {[id number]) Nitrite (Urine) NEGATIVE NEGATIVE [facility] Comment:{NITRITE {[id number]) Leukocyte esterase (Urine) NEGATIVE NEGATIVE [facility] Comment:{LEUKOCYTE ESTERASE {[id number]) 09/09/2015 5:54 PM EST 09/09/2015 9:52 PM EST Narrative Resulting Agency Comment [id number] us Erich Horvath MD LABORATORY Final Result Performing Organization Address [facility] Co de Phone Number [facility] [address] [place] [address] documented in this encounter Visit Diagnoses Diagnosis Overactive bladder- Primary Hypertonicity of bladder documented in this encounter Additional Health Concerns Infection Onset Date Last Indicated Resolved Time COVID-19 Rule-Out 09/12/2020 09/12/2020 12/07/2020 8:13 PM EST documented as of this encounter Care Teams Claims Adjuster Supervisor Relationship Specialty Start Date End Date Johnny Iqzuierdo MD [address] [place] [address] PCP - General 01/14/06 04/21/22 Johnny Frazier MD [address] [place] [address] PCP - General Family Medicine 04/22/22 documented as of this encounter
--- OUTSIDE RECORDS SUMMARY | 2025-01-21 18:21 | XMS_ITS | Encounter Summary ---
Author Organization [facility] Address [address] [place] [address] Care Team Providers Care Supervisor Water Softener Service Name Role Phone Johnny Izquierdo MD Primary Care Provider [phone] Johnny Frazier MD Primary Care Provider [phone] Reason for Visit * Reason Comments E-prescribing Refill Request Encounter Details Date Type Department Care Team (Late st Contact Info) Description 04/08/2020 Refill [facility] [address] [place] [phone] Johnny Izquierdo MD [address] [place], [place] [phone] E-prescribing Refill Request Social History Tobacco Use [...] have Coronavirus / COVID-19? No / Unsure 04/08/2020 2:07 PM EDT documented as of this encounter Functional Status documented as of this encounter Miscellaneous Notes * Telephone Encounter - Chasity Perera CMA - 04/08/2020 4:40 PM EDT Special Concerns: BPA,please advise. Faxed medication renewal request(s) for Tatum Fine 69 y.o. female received from pharmacy. Entered this pharmacy as preferred pharmacy for patient. Last CPE with this specialty: 05/29/2017 Last OV with this specialty: 04/08/2020 Next OV: Future Appointments Date Time Provider Department Phone 04/14/20 1:[address] LDN CDE [facility] [phone] 04/15/20 2:30 PM Kashif Mccullough DPM [facility] [phone] 05/14/20 11:30 AM LLR MAMMOGRAPHY ROOM1 [facility] [phone] 05/20/20 1:15 PM Ginette Kincaid MD [facility] Gynecology [phone] 08/10/20 11:40 AM Tiffanie Rebolledo NP [facility] [phone] 04/07/21 12:45 PM Siomara Li MD [facility] [phone] Pertinent lab results: Lab Results Component Value Date SODIUM 140 03/20/2020 POTASSIUM 4.8 03/20/2020 CHLOR 102 03/20/2020 CO2 28 03/20/2020 BUN 9 03/20/2020 CREATININE 0.88 03/20/2020 GFR 68 03/20/2020 GLUCOSE 164 (H) 03/20/2020 LESIA 10.0 03/20/2020 An open order for Basic exists. Testing recommended a minimum of yearly for chronic therapy . Based on last lab testing intervals, 12 months supply suggested for potassium, diuretics, MEHRAN inhibitors, ARBs and bone density medications. Allergies: Patient has no known allergies. BP Readings from Last 1 Encounters: 04/08/20 (!) 143/80 Patient Active Problem List Diagnosis Date Noted ??? Mild intermittent asthma 05/08/2019 Refer to [...] advised to use spacer ??? COPD exacerbation ([facility]) 08/08/2018 ??? Pulmonary nodules 09/19/2017 3 mm [...] negative, can stop screening paps. ??? Diabetes ([facility]) 09/19/2016 Type II, controlled on Lantus 12 [...] 02/16/2016 ??? Bipolar affective disorder in remission ([facility]) 03/26/2015 On lamictal 20mg ??? Essential hypertension [...] ??? Chest pain 01/21/2011 01/21/11 hospitalized at [facility]. Had cardiac catheterization which was normal, both [...] to Visit Medication Sig Dispense Refill ??? traZODone HCl (DESYREL) 100 MG tablet Take 2 tabs po at night 60 tablet 5 ??? Lisinopril (PRINIVIL,ZESTRIL) 5 MG tablet Take one tablet (5 mg total) by mouth 1 (one) time each day 30 tablet 0 ??? MetFORMIN HCl (GLUCOPHAGE-XR) 500 MG 24 [...] time each day 42 tablet 11 ??? Atorvastatin Calcium (LIPITOR) 40 MG tablet TAKE 1 TABLET DAILY 90 tablet 3 ??? Cariprazine HCl (VRAYLAR) 3 MG Cap TK 1 C PO QD 0 ??? Nicotine ([facility] NICOTINE) 21 MG/24HR PATCH 24 HR 1 PATCH DAILY 30 Patch 2 ??? Mometasone Furoate 50 MCG/ACT Suspension 2 sprays in each nostril BID ??? Polyethylene Glycol 3350 (MIRALAX) Powder 1 capful daily ??? ESTRADIOL VAGINAL (ESTRACE VAGINAL) 0.1 MG/GM Cream twice weekly. ??? Lamotrigine 200 MG Tab 1 tablet daily ??? ASPIRIN (LOW-DOSE ASPIRIN) 81 MG OR TABS 2 TABLET DAILY documented in this encounter Plan of Treatment Upcoming Encounters Date Type Department Care Team (Latest Contact Info) Description 02/07/2025 9:25 AM EDT Office Visit [facility] [address] [place] [address] Siomara Li MD [address] [place] [address] Return in about 3 months (around 03/12/2025). 05/12/2025 12:45 PM EDT CPE - Comprehensive Physical Exam [facility] [address] [place] [address] Tiffanie Rebolledo, VISITOR SERVICE ASSISTANT [address] [place] [address] Last CPE: Not Found 06/11/2025 11:05 AM EDT Office Visit [facility] [address] [place] [phone] Siomara Li MD [address] [place] [address] Keep this appt and Dr Britt can [...] documented as of this encounter Care Teams Supervisor Water Softener Service Relationship Specialty Start Date End Date Johnny Izquierdo MD [address] [place] [address] PCP - General 01/14/06 04/21/22 Johnny Frazier MD [address] [place] [address] PCP - General Family Medicine 04/22/22 documented as of this encounter
--- OUTSIDE RECORDS SUMMARY | 2025-01-21 18:21 | XMS_ITS | Encounter Summary ---
Author Organization [facility] Address [address] [place] [address] Care Team Providers Care Plastic Tile Layer Name Role Phone Johnny Izquierdo MD Primary Care Provider [phone] Johnny Frazier MD Primary Care Provider [phone] Encounter Details Date Type Department Care Team (Late st Contact Info) Description 09/12/2006 Orders Only [facility] [address] [place] [phone] Johnny Izquierdo MD [address] [place] [address] Social History Tobacco Use Types Packs/Day Years Used Date Smoking Tobacco: Every Day Comments Unknown Sex and Gender Information Value Date Recorded Sex Assigned at Not on file Legal Sex Female 6:50 PM EDT Gender Identity Not on file Sexual Orientation Not on file documented as of this encounter Plan of Treatment Upcoming Encounters Date Type Department Care Team (Latest Contact Info) Description 02/07/2025 9:25 AM EDT Office Visit [facility] [address] [place] [phone] Siomara Li MD [address] [place] [phone] Return in about 3 months (around 03/12/2025). 05/12/2025 12:45 PM EDT CPE - Comprehensive Physical Exam [facility] [address] [place] [address] Tiffanie Rebolledo NP [address] [facility] [place] [place] [address] Last CPE: Not Found 06/11/2025 11:05 AM EDT Office Visit [facility] [address] [place] [address] Siomara Li MD [address] [place] [address] Keep this appt and Dr Britt can discuss at the January visit keep or move out documented as of this encounter Procedures * Due to [place] ScalIT law, this organization might not be sharing negative HIV tests. Procedure Name Priority Date/Time Associated Diagnosis Comments BASIC METABOLIC PANEL Routine 09/12/2006 DM W/O COMPLICATION TYPE II ALANINE AMINOTRANSFERASE (ALT), SERUM Routine 09/12/2006 DM W/O COMPLICATION TYPE II ASPARTATE AMINOTRANSFERASE (AST), SERUM Routine 09/12/2006 DM W/O COMPLICATION TYPE II CARDIAC RISK/LIPID PROFILE I Routine 09/12/2006 DM W/O COMPLICATION TYPE II documented in this encounter Results * Due to [place] ScalIT law, this organization might not be sharing negative HIV tests. * (ABNORMAL) ASPARTATE AMINOTRANSFERASE (AST), SERUM (09/12/2006) AST (SGOT) 38(H) 3 - 35 U/L [facility] (CLIA# [id number]) 09/12/2006 09/12/2006 3:1 2 PM EST us Johnny Izquierdo MD LAB SAME DAY RESULT Final Res ult [facility] (CLIA# [id number]) [address] [place] [address] * (ABNORMAL) ALANINE AMINOTRANSFERASE (ALT), SERUM (09/12/2006) [facility] ALT (SGPT) 52(H) 3 - 40 U/L [facility] (CLIA# [id number]) 09/12/2006 09/12/2006 3:1 2 PM EST Johnny Izquierdo MD LAB SAME DAY RESULT Final Res ult Performing Organization Address City/[facility]/ZIP Co de Phone Number [facility] (CLIA# [id number]) [address] [place] [address] * (ABNORMAL) CARDIAC RISK/LIPID PROFILE I (09/12/2006) [facility] CHOLESTEROL, TOTAL 196 100 - 199 MG/DL [facility] (CLIA# [id number]) TRIGLYCERIDES 162(H) 30 - 149 MG/DL [facility] (CLIA# [id number]) HDL-CHOLESTEROL 27(L) 40 - 77 MG/DL [facility] (CLIA# [id number]) LDL-CHOLESTEROL 137(H) 62 - 130 MG/DL [facility] (CLIA# [id number]) Comment: RISK CATEGORY: ??LDL-CHOLESTEROL GOAL CHD AND CHD RISK EQUIVALENTS: ??<100 MULTIPLE (2+) FACTORS: ??<130 ZERO TO ONE RISK FACTOR: ??<160 CHD RELATIVE RISK RATIO (TOTAL/HDL) [facility] (CLIA# [id number]) Comment:(2.1 X AVERAGE) 09/12/2006 09/12/2006 3:1 2 PM EST us Johnny Izquierdo MD LABORATORY Final Result Performing Organization Address [facility]/ZIP Co de Phone Number [facility] (CLIA# [id number]) [address] [place] [address] * (ABNORMAL) BASIC METABOLIC PANEL (09/12/2006) CALCIUM 9.1 8.5 - 10.4 MG/DL [facility] (CLIA# [id number]) BUN 8 7 - 25 MG/DL [facility] (CLIA# [id number]) CREATININE 0.8 0.5 - 1.2 MG/DL [facility] (CLIA# [id number]) BUN/Creatinine Ratio 10 6 - 25 [facility] (CLIA# [id number]) Glucose 135(H) 65 - 99 MG/DL [facility] (CLIA# [id number]) SODIUM 140 135 - 146 MMOL/L [facility] (CLIA# [id number]) POTASSIUM 4.0 3.5 - 5.3 MMOL/L [facility] (CLIA# [id number]) CHLORIDE 105 98 - 110 MMOL/L [facility] (CLIA# [id number]) CARBON DIOXIDE 25 21 - 33 MMOL/L [facility] (CLIA# [id number]) 09/12/2006 09/12/2006 3:1 2 PM EST us Johnny Izquierdo MD LAB SAME DAY RESULT Final Res ult [facility] (CLIA# [id number]) [address] [place] [address] documented in this encounter Visit Diagnoses Diagnosis DM W/O COMPLICATION TYPE II Type II or unspecified type diabetes mellitus without mention of complication, not stated as uncontrolled documented in this encounter Additional Health Concerns Infection Onset Date Last Indicated Resolved Time COVID-19 Rule-Out 09/12/2020 09/12/2020 12/07/2020 8:13 PM EST documented as of this encounter Care Teams Plastic Tile Layer Relationship Specialty Start Date End Date Johnny Izquierdo MD [address] [place] [address] PCP - General 01/14/06 04/21/22 Johnny Frazier MD [address] [place] [address] PCP - General Family Medicine 04/22/22 documented as of this encounter
--- OUTSIDE RECORDS SUMMARY | 2025-01-21 18:21 | XMS_ITS | Encounter Summary ---
Author Organization [facility] Address [address] [place] [address] Care Team Providers Care Shield Installer Name Role Phone Johnny Izquierdo MD Primary Care Provider [phone] Johnny Frazier MD Primary Care Provider [phone] Encounter Details Date Type Department Care Team (Late st Contact Info) Description 06/20/2012 Orders Only [facility] [address] [place] [phone] Johnny Izquierdo MD [address] [place], [place] [phone] Social History Tobacco Use Types Packs/Day Years [...] Progress Notes * Lianna Meléndez DNP - 06/22/2012 7:57 AM EDTQuick Note: Please notify patient urine culture was negative. She was advised to f/u if sx do not improve as may be experiencing atrophic vaginitis. Thanks Lianna * Lianna Meléndez DNP - 06/21/2012 7:58 AM EDTQuick Note: Treated with antibiotic based on sx but also discussed possibility of atrophic vaginitis. Culture pending as of 06/21/12 documented in this encounter Plan of Treatment Upcoming Encounters Date Type Department Care Team (Latest Contact Info) Description 02/07/2025 9:25 AM EDT Office Visit [facility] [address] [place] [phone] Siomara Li MD [address] [place] [phone] Return in about 3 months (around 03/12/2025). 05/12/2025 12:45 PM EDT CPE - Comprehensive Physical Exam [facility] [address] [place] [phone] Tiffanie Rebolledo, INFORMATION CLERK CASHIER [address] [place] [address] Last CPE: Not Found 06/11/2025 11:05 AM EDT Office Visit [facility] [address] [place] [phone] Siomara Li MD [address] [place] [address] Keep this appt and Dr Britt can discuss at the January visit keep or move out documented as of this encounter Procedures * Due to [place] state law, this organization might not be sharing negative HIV tests. Procedure Name Priority Date/Time Associated Diagnosis Comments URINALYSIS, DIP ONLY STAT (All results called to provider) 06/20/2012 2:19 PM EDT UTI (urinary tract infection), uncomplicated CULTURE, URINE, ROUTINE Routine 06/20/2012 2:03 PM EDT UTI (urinary tract infection), uncomplicated URINALYSIS, MICROSCOPIC Routine 06/20/2012 2:03 PM EDT UTI (urinary tract infection), uncomplicated documented in this encounter Results * Due to [place] state law, this organization might not be sharing negative HIV tests. * URINALYSIS, DIP ONLY ( SITE STAT ONLY) (06/20/2012 2:19 PM EDT) COLOR (URINE) yellow [facility] (CLIA# [id number]) APPEARANCE (URINE) clear [facility] (CLIA# [id number]) SPECIFIC GRAVITY 1.020 1.001 - 1.035 [facility] (CLIA# [id number]) PH (URINE) 6.0 5.0 - 8.0 [facility] (CLIA# [id number]) PROTEIN (URINE) negative Neg [facility] (CLIA# [id number]) GLUCOSE (URINE) negative Neg [facility] (CLIA# [id number]) Ketones (Urine) negative Neg [facility] (CLIA# [id number]) BILIRUBIN (URINE) negative Neg [facility] (CLIA# [id number]) BLOOD (URINE) trace Neg [facility] (CLIA# [id number]) WBC (URINE) trace Neg [facility] (CLIA# [id number]) NITRITE (URINE) negative Neg [facility] (CLIA# [id number]) Urine specimen obtained by clean catch procedure (specimen) 06/20/2012 2:19 PM EDT Narrative [facility] (CLIA# [id number]) - 06/20/2012 2:20 PM EDT Micro added. Culture already ordered per provider. us Johnny Izquierdo MD LAB SAME DAY RESULT Final Res ult [facility] (CLIA# [id number]) [address] [place] [address] * URINALYSIS, MICROSCOPIC (06/20/2012 2:03 PM EDT) WBC (Urine) 0-5 < OR = 5 /HPF [facility] Comment:{WBC {[id number]) RBC (Urine Sed) NONE SEEN < OR = 3 /HPF [facility] Comment:{RBC {[id number]) Epithelial cells.squamous (Urine sed) 0-5 < OR = 5 /HPF [facility] Comment:{SQUAMOUS EPITHELIAL CELLS {[id number]) Bacteria (Urine) NONE SEEN NONE SEEN /HPF [facility] Comment:{BACTERIA {[id number]) Hyaline casts (Urine sed) NONE SEEN NONE SEEN /LPF [facility] Comment:{HYALINE CAST {[id number]) Service comment 01 SEE NOTE [facility] Comment: {NOTE {[id number]) This urine was analyzed for the presence of WBC, RBC, bacteria, casts, and other formed elements. Only those elements seen were reported. 06/20/2012 2:03 PM EDT 06/20/2012 10:00 PM EDT Narrative Resulting Agency Comment [id number] us Johnny Izquierdo MD LAB SAME DAY RESULT Final Res ult [facility] [address] [place] [address] * CULTURE, URINE, ROUTINE (06/20/2012 2:03 PM EDT) Bacteria culture (Urine) SEE NOTE [facility] Comment: {CULTURE, URINE, ROUTINE {[id number]) ??CULTURE, URINE, ROUTINE ??MICRO NUMBER: ?[id number] ??TEST STATUS: ? FINAL ??SPECIMEN SOURCE: ?? URINE ??SPECIMEN QUALITY: ??ADEQUATE ??RESULT: ?Multiple organisms present, each less than 10,000 ? CFU/mL. These organisms, commonly found on ? external and internal genitalia, are considered ? to be colonizers. No further testing performed. 06/20/2012 2:03 PM EDT 06/20/2012 10:00 PM EDT Narrative Resulting Agency Comment [id number] Johnny Izquierdo MD LABORATORY Final Result [facility] [address] [place] [address] documented in this encounter Visit Diagnoses Diagnosis UTI (urinary tract infection), uncomplicated- Primary Urinary tract infection, site not specified documented in this encounter Additional Health Concerns Infection Onset Date Last Indicated Resolved Time COVID-19 Rule-Out 09/12/2020 09/12/2020 12/07/2020 8:13 PM EST documented as of this encounter Care Teams Shield Installer Relationship Specialty Start Date End Date Johnny Izquierdo MD [address] [facility] [address] PCP - General 01/14/06 04/21/22 Johnny Frazier MD [address] [place] [address] PCP - General Family Medicine 04/22/22 documented as of this encounter
--- OUTSIDE RECORDS SUMMARY | 2025-01-21 18:21 | XMS_ITS | Encounter Summary ---
Author Organization [facility] Address [address] [place] [address] Care Team Providers Care Material Control Clerk Name Role Phone Johnny Frazier MD Primary Care Provider [phone] Encounter Details Date Type Department Care Team ( Contact Info) Description 08/29/2022 Orders Only [facility] [address] [place] [phone] Johnny Frazier MD [address] [place] [address] Medications Social History Tobacco Use Types Packs/Day [...] Description 02/07/2025 9:25 AM EDT Office Visit [facility] [address] [place] [phone] Siomara Li MD [address] [place] [phone] Return in about 3 months (around 03/12/2025). 05/12/2025 12:45 PM EDT CPE - Comprehensive Physical Exam [facility] [address] [place] [phone] Tiffanie Rebolledo, BIOINFORMATICS SUPPORT SPECIALIST [address] [place] [address] Last CPE: Not Found 06/11/2025 11:05 AM EDT Office Visit [facility] [address] [place] [phone] Siomara Li MD [address] [place] [address] Keep this appt and Dr Britt can [...] on filedocumented in this encounter Care Teams Material Control Clerk Relationship Specialty Start Date End Date Johnny Frazier MD [address] [place] [address] PCP - General Family Medicine 04/22/22 documented as of this encounter
--- OUTSIDE RECORDS SUMMARY | 2025-01-21 18:21 | XMS_ITS | Encounter Summary ---
Author Organization [facility] Address [address] [place] [address] Care Team Providers Care Lithographic General Worker Name Role Phone Johnny Frazier MD Primary Care Provider [phone] Encounter Details Date Type Department Care Team ( Contact Info) Description 04/04/2023 Orders Only [facility] [address] [place] [address] Johnny Frazier MD [address] [place] [address] Social History Tobacco Use Types Packs/Day Years Used Date Smoking Tobacco: Every Day Cigarettes 1 56.5 Started: 07/19/1967 Smokeless Tobacco: Never Alcohol [...] Description 02/07/2025 9:25 AM EDT Office Visit [facility] [address] [place] [phone] Siomara Li MD [address] [place] [address] Return in about 3 months (around 03/12/2025). 05/12/2025 12:45 PM EDT CPE - Comprehensive Physical Exam [facility] [address] [place] [phone] Tiffanie Rebolledo REHABILITATION MANAGER [address] [place] [address] Last CPE: Not Found 06/11/2025 11:05 AM EDT Office Visit [facility] [address] [place] [phone] Siomara Li MD [address] [place] [address] Keep this appt and Dr Britt can discuss at the January visit keep or move out documented as of this encounter Goals Goal Patient Goal Type Associated Problems Recent Progress Patient-Stated? Author Blood Pressure < 140/80 Blood Pressure 143/65(2024 2:06 PM EST) No Arabella Solares PA Quit smoking / using tobacco Lifestyle No Ricrada Weeks HEMOGLOBIN A1C % < 7 Result Component 6.3( 10:29 AM EST) No Ricarda Weeks documented as of this encounter Procedures * Due to [place] [employer] law, this organization might not be sharing negative HIV tests. Procedure Name Priority Date/Time Associated Diagnosis Comments HEMOGLOBIN A1C Routine 04/04/2023 3:24 PM EDT Diabetes mellitus without complication ALBUMIN (MICROALBUMIN), RANDOM URINE, WITH CREATININE Routine 04/04/2023 3:24 PM EDT Diabetes mellitus without complication LIPID PANEL WITH REFLEX TO DIRECT LDL Routine 04/04/2023 3:24 PM EDT Diabetes mellitus without complication BASIC METABOLIC PANEL WITH (GFR) Routine 04/04/2023 3:24 PM EDT Diabetes mellitus without complication documented in this encounter Results * Due to [place] [employer] law, this organization might not be sharing negative HIV tests. * ALBUMIN (MICROALBUMIN), RANDOM URINE, WITH CREATININE (09/20/2023 9:23 AM EST) Creatinine (Urine) 37 20 - 275 mg/dL [facility] Albumin (Urine) 0.6 mg/dL [facility] Comment: Reference Range Not established Albumin/Creatinine (Urine) 16 <30 mcg/mg creat [facility] Comment: The [...] patient to be within a diagnostic category. 09/20/2023 9:23 AM EST 09/20/2023 5:48 PM EST Narrative Resulting Agency Comment [id number] us Johnny Frazier MD LABORATORY Final Result Performing Organization Address [facility] de Phone Number [facility] [address] [place] [address] * (ABNORMAL) HEMOGLOBIN A1C (04/04/2023 3:24 PM EDT) Hemoglobin A1C 6.5(H) <5.7 % of total Hgb [facility] [...] of diabetes for children. Estimated Average Glucose 154 mg/dL (calc) [facility] 04/04/2023 3:24 PM EDT 04/05/2023 12:09 AM EDT Narrative Resulting Agency Comment [id number] us Johnny Frazier MD LABORATORY Final Result [facility] [address] [place] [address] * BASIC METABOLIC PANEL WITH (GFR) (04/04/2023 3:24 PM EDT) Glucose 95 65 - 99 mg/dL [facility] Comment:Fasting reference in terval Urea Nitrogen Blood (BUN) 14 7 - 25 mg/dL [facility] Creatinine 0.91 0.60 - 1.00 mg/dL [facility] EGFR 67 > OR = 60 mL/min/1. 73m2 [facility] Comment: The eGFR is based on the CKD-EPI 2020 equation. To calculate the new eGFR from a previous Creatinine or Cystatin C result, go to https://www.kidney.org/professionals/ kdoqi/gfr%5Fcalculator BUN/Creatinine Ratio NOT APPLICABLE 6 - 22 (calc) [facility] Sodium 136 135 - 146 mmol/L [facility] Potassium 4.7 3.5 - 5.3 mmol/L [facility] Chloride 102 98 - 110 mmol/L [facility] Carbon dioxide 26 20 - 32 mmol/L [facility] Calcium 9.8 8.6 - 10.4 mg/dL [facility] 04/04/2023 3:24 PM EDT 04/05/2023 12:09 AM EDT Narrative [facility] - 04/05/2023 7:01 AM EDT Please note that this estimated [...] needs for GFR calculation. Resulting Agency Comment [id number] us Johnny Frazier MD LABORATORY Final Result Performing Organization Address City/[facility]/ZIP Co de Phone Number [facility] [address] [place] [address] * (ABNORMAL) LIPID PANEL WITH REFLEX TO DIRECT LDL (04/04/2023 3:24 PM EDT) Cholesterol 185 <200 mg/dL [facility] HDL Cholesterol 29(L) > OR = 50 mg/dL [facility] Triglyceride 308(H) <150 mg/dL [facility] Comment: If a non-fasting specimen was collected, consider repeat triglyceride testing on a fasting specimen if clinically indicated. Deloris et al. J. of Clin. Lipidol. 2015;9:129-169. LDL Cholesterol 115(H) mg/dL (calc) [facility] Comment: Reference range: <100 Desirable range <100 mg/dL for primary prevention; ?? <70 mg/dL for patients with CHD or diabetic patients with > or = 2 CHD risk factors. LDL-C is now calculated using the Bobby-Mcfarlane calculation, which is a validated novel method providing better accuracy than the Friedewald equation in the estimation of LDL-C. Bobby SS et al. HECTOR. 2013;310(19): 5321-2418 (http://education.Zulu/faq/ITB312) CHOL/HDL Ratio 6.4(H) <5.0 (calc) [facility] Cholesterol Non-HDL 156(H) <130 mg/dL (calc) [facility] Comment: For patients with diabetes plus 1 major ASCVD risk factor, treating to a non-HDL-C goal of <100 mg/dL (LDL-C of <70 mg/dL) is considered a therapeutic option. 04/04/2023 3:24 PM EDT 04/05/2023 12:09 AM EDT Narrative Resulting Agency Comment [id number] us Johnny Frazier MD LABORATORY Final Result [facility] [address] [place] [address] * (ABNORMAL) ALBUMIN (MICROALBUMIN), RANDOM URINE, WITH CREATININE (04/04/2023 3:24 PM EDT) Creatinine (Urine) 36 20 - 275 mg/dL [facility] Albumin (Urine) 2.1 mg/dL [facility] Comment: Reference Range Not established Albumin/Creatinine (Urine) 58(H) <30 mcg/mg creat [facility] Comment: The [...] patient to be within a diagnostic category. 04/04/2023 3:24 PM EDT 04/05/2023 12:09 AM EDT Narrative Resulting Agency Comment [id number] Johnny Frazier MD LABORATORY Final Result Performing Organization Address City/State/[facility] Co de Phone Number [facility] [address] [place] [address] documented in this encounter Visit Diagnoses Diagnosis Diabetes mellitus without complication (HCC) Type II or unspecified type diabetes mellitus without mention of complication, not stated as uncontrolled documented in this encounter Care Teams Lithographic General Worker Relationship Specialty Start Date End Date Johnny Frazier MD [address] [facility] [address] PCP - General Family Medicine 04/22/22 documented as of this encounter
--- OUTSIDE RECORDS SUMMARY | 2025-01-21 18:21 | XMS_ITS | Encounter Summary ---
Author Organization [facility] Address [address] [place] [address] Care Team Providers Care Crate Maker Name Role Phone Johnny Izquierdo MD Primary Care Provider [phone] Johnny Frazier MD Primary Care Provider [phone] Encounter Details Date Type Department Care Team (Late st Contact Info) Description 03/01/2012 Orders Only [facility] [address] [place] [phone] Johnny Izquierdo MD [address] [place], [place] [phone] Social History Tobacco Use Types Packs/Day Years [...] encounter Progress Notes * Katy Antoine - 03/02/2012 11:11 AM EDTQuick Note: The patients lab results are at a abnormal level by the protocol guidelines. Letter was printed andheld for review at upcoming appointment on : 03/02/12 documented in this encounter Plan of Treatment Upcoming Encounters Date Type Department Care Team (Latest Contact Info) Description 02/07/2025 9:25 AM EDT Office Visit [facility] [address] [place] [phone] Siomara Li MD [address] [place] [address] Return in about 3 months (around 03/12/2025). 05/12/2025 12:45 PM EDT CPE - Comprehensive Physical Exam [facility] [address] [place] [address] Tiffanie Rebolledo, INSURANCE INSPECTOR [address] [place] [address] Last CPE: Not Found 06/11/2025 11:05 AM EDT Office Visit [facility] [address] [place] [phone] Siomara Li MD [address] [place] [address] Keep this appt and Dr Britt can discuss at the Kelsi visit keep or move out documented as of this encounter Procedures * Due to [place] state law, this organization might not be sharing negative HIV tests. Procedure Name Priority Date/Time Associated Diagnosis Comments ASPARTATE AMINOTRANSFERASE (AST), SERUM Routine 03/01/2012 9:40 AM EDT Hyperlipidemia HEMOGLOBIN A1C Routine 03/01/2012 9:40 AM EDT DM w/o complication type II ALBUMIN (MICROALBUMIN), RANDOM URINE, WITH CREATININE Routine 03/01/2012 9:40 AM EDT DM w/o complication type II LIPID PANEL WITH REFLEX TO DIRECT LDL Routine 03/01/2012 9:40 AM EDT Hyperlipidemia BASIC METABOLIC PANEL WITH (GFR) Routine 03/01/2012 9:40 AM EDT DM w/o complication type II documented in this encounter Results * Due to [place] state law, this organization might not be sharing negative HIV tests. * (ABNORMAL) BASIC METABOLIC PANEL WITH (GFR) (03/01/2012 9:40 AM EDT) Glucose 61(L) 65 - 99 mg/dL [facility] Comment: {GLUCOSE {[id number]) ? Fasting reference interval Urea Nitrogen Blood (BUN) 10 7 - 25 mg/dL [facility] Comment:{UREA NITROGEN (BUN) {[id number]) Creatinine 0.83 0.50 - 0.99 mg/dL [facility] Comment: {CREATININE {[id number]) For patients >49 years of age, the reference limit for Creatinine is approximately 13% higher for people identified as -Tristanian. GFR 77 > OR = 60 mL/min/1 .73m2 [facility] Comment:{eGFR NON-AFR. AMERI CAN {[id number]) GFR () 89 > OR = 60 mL/min/1 .73m2 [facility] Comment:{eGFR AMERIC AN {[id number]) BUN/Creatinine Ratio NOT APPLICABLE 6 - (calc) [facility] Comment:{BUN/CREATININE RATI O {[id number]) Sodium 140 135 - 146 mmol/L [facility] Comment:{SODIUM {[id number]) Potassium 4.2 3.5 - 5.3 mmol/L [facility] Comment:{POTASSIUM {[id number]) Chloride 107 98 - 110 mmol/L [facility] Comment:{CHLORIDE {[id number]) Carbon dioxide 25 21 - 33 mmol/L [facility] Comment:{CARBON DIOXIDE {[id number]) Calcium 9.3 8.6 - 10.4 mg/dL [facility] Comment:{CALCIUM {[id number]) 03/01/2012 9:40 AM EDT 03/01/2012 7:20 PM EDT Narrative [facility] - 03/01/2012 9:04 PM EDT Please note that this estimated [...] needs for GFR calculation. Resulting Agency Comment [id number] Johnny Izquierdo MD LABORATORY Final Result Performing Organization Address [facility] de Phone Number [facility] [address] [place] [address] * ALBUMIN (MICROALBUMIN), RANDOM URINE, WITH CREATININE (03/01/2012 9:40 AM EDT) Creatinine (Urine) 113 20 - 320 mg/dL [facility] Comment:{CREATININE, RANDOM URINE {[id number]) Albumin (Urine) 0.3 mg/dL [facility] Comment: {MICROALBUMIN {[id number]) Reference Range Not established Albumin/Creatinine (Urine) 3 <30 mcg/mg creat [facility] Comment: {MICROALBUMIN/CREATININE RATIO, RANDOM URINE {[id number]) The ADA defines abnormalities in albumin excretion as follows: Category ? Result (mcg/mg creatinine) Normal ?<30 Microalbuminuria ? 30-299 Clinical albuminuria ?? > OR = 300 The ADA recommends that at least two of three specimens collected within a 3-6 month period be abnormal before considering a patient to be within a diagnostic category. 03/01/2012 9:40 AM EDT 03/01/2012 7:20 PM EDT Narrative Resulting Agency Comment [id number] Johnny Izquierdo MD LABORATORY Final Result Performing Organization Address [facility] de Phone Number [facility] [address] [place] [address] * ASPARTATE AMINOTRANSFERASE (AST), SERUM (03/01/2012 9:40 AM EDT) AST (SGOT) 21 10 - 35 U/L [facility] Comment:{AST {[id number]) 03/01/2012 9:40 AM EDT 03/01/2012 7:20 PM EDT Narrative Resulting Agency Comment [id number] Johnny Izquierdo MD LAB SAME DAY RESULT Final Res ult Performing Organization Address City/[facility]/ZIP Co de Phone Number [facility] [address] [place] [address] * (ABNORMAL) LIPID PANEL WITH REFLEX TO DIRECT LDL (03/01/2012 9:40 AM EDT) Cholesterol 145 125 - 200 mg/dL [facility] Comment:{CHOLESTEROL, TOTAL {[id number]) HDL Cholesterol 24(L) > OR = 46 mg/dL [facility] Comment:{HDL CHOLESTEROL {[id number]) Triglyceride 115 <150 mg/dL [facility] Comment:{TRIGLYCERIDES {[id number]) LDL Cholesterol 98 <130 mg/dL (calc) [facility] Comment: {LDL-CHOLESTEROL {[id number]) Desirable range <100 mg/dL for patients with CHD or diabetes and <70 mg/dL for diabetic patients with known heart disease. CHOL/HDL Ratio 6.0(H) < OR = 5.0 (calc) [facility] Comment:{CHOL/HDLC RATIO {[id number]) Cholesterol Non-HDL 121 mg/dL (calc) [facility] Comment: {NON-HDL CHOLESTEROL {[id number]) Target for non-HDL cholesterol is 30 mg/dL higher than LDL cholesterol target. 03/01/2012 9:40 AM EDT 03/01/2012 7:20 PM EDT Narrative Resulting Agency Comment [id number] us Johnny Izquierdo MD LABORATORY Final Result Performing Organization Address City/[facility]/ZIP Co de Phone Number [facility] [address] [place] [address] * HEMOGLOBIN A1C (03/01/2012 9:40 AM EDT) Hemoglobin A1C 5.6 <5.7 % of total Hgb [facility] Comment: {HEMOGLOBIN A1c {[id number]) ?Decreased risk of diabetes ? <5.7 ? Decreased risk of diabetes ? 5.7-6.0 ?Increased risk of diabetes ? 6.1-6.4 ?Higher risk of diabetes ? > or = 6.5 Consistent with diabetes ?Standards of Medical Care in Diabetes-2010. ?Diabetes Care, 33(Supp 1): S1-S61,2010. Estimated Average Glucose 122 mg/dL (calc) [facility] Comment:{MEAN PLASMA GLUCOSE {[id number]) 03/01/2012 9:40 AM EDT 03/01/2012 7:20 PM EDT Narrative Resulting Agency Comment [id number] Johnny Izquierdo MD LABORATORY Final Result Performing Organization Address [facility]/State/[facility] Co de Phone Number [facility] [address] [place] [address] documented in this encounter Visit Diagnoses Diagnosis DM w/o complication type II Type II or unspecified type diabetes mellitus without mention of complication, not stated as uncontrolled Hyperlipidemia Other and unspecified hyperlipidemia documented in this encounter Additional Health Concerns Infection Onset Date Last Indicated Resolved Time COVID-19 Rule-Out 09/12/2020 09/12/2020 12/07/2020 8:13 PM EST documented as of this encounter Care Teams Crate Maker Relationship Specialty Start Date End Date Johnny Izquierdo MD [address] [place] [address] PCP - General 01/14/06 04/21/22 Johnny Frazier MD [address] [place] [address] PCP - General Family Medicine 04/22/22 documented as of this encounter
--- OUTSIDE RECORDS SUMMARY | 2025-01-21 18:21 | XMS_ITS | Encounter Summary ---
Author Organization [facility] Address [address] [place] [address] Care Team Providers Care Cardiology Associate Name Role Phone Johnny Izquierdo MD Primary Care Provider [phone] Johnny Frazier MD Primary Care Provider Encounter Details Date Type Department Care Team (Late Contact Info) Description 05/31/2016 Orders Only [facility] Ophthalmology [address] [place] [address] Arabella Ch, Tech [address] [place] [address] Medications Social History Tobacco Use Types Packs/Day [...] AM EDT Office Visit [facility] [address] [place] [phone] Siomara Li MD [address] [place] [address] Return in about 3 months (around 03/12/2025). 05/12/2025 12:45 PM EDT CPE - Comprehensive Physical Exam [facility] [address] [place] [address] Tiffanie Rebolledo SECTION CHIEF [address] [facility] [place] [address] Last CPE: Not Found 06/11/2025 11:05 AM EDT Office Visit [facility] [address] [place] [address] Siomara Li MD [address] [place] [address] Keep this appt and Dr Britt can discuss at the January visit keep or move out documented as of this encounter Goals Goal Patient Goal Type Associated Problems Recent Progress Patient-Stated? Author Blood Pressure < 140/80 Blood Pressure 143/65(2024 2:06 PM EST) No Arabella Solares PA Quit smoking / using tobacco Lifestyle No Rciarda Weeks HEMOGLOBIN A1C % < 7 Result Component 6.3( 10:29 AM EST) No Ricarda Weeks documented as of this encounter Visit Diagnoses Not on filedocumented in this encounter Additional Health Concerns Infection Onset Date Last Indicated Resolved Time COVID-19 Rule-Out 09/12/2020 09/12/2020 12/07/2020 8:13 PM EST documented as of this encounter Care Teams Cardiology Associate Relationship Specialty Start Date End Date Johnny Izquierdo MD [address] [place] [address] PCP - General 01/14/06 04/21/22 Johnny Frazier MD [address] [place] [address] PCP - General Family Medicine 04/22/22 documented as of this encounter
--- OUTSIDE RECORDS SUMMARY | 2025-01-21 18:21 | XMS_ITS | Encounter Summary ---
Author Organization [facility] Address [address] [place] [address] Care Team Providers Care Nutritionalist Name Role Phone Johnny Frazier MD Primary Care Provider [phone] Encounter Details Date Type Department Care Team ( Contact Info) Description 05/19/2023 Orders Only [facility] [address] [place] [phone] Johnny Frazier MD [address] [place] [address] Social History Tobacco Use Types Packs/Day Years [...] Description 02/07/2025 9:25 AM EDT Office Visit [facility] [address] [place] [phone] Siomara Li MD [address] [place] [phone] Return in about 3 months (around 03/12/2025). 05/12/2025 12:45 PM EDT CPE - Comprehensive Physical Exam [facility] [address] [place] [address] Tiffanie Rebolledo NP [address] [place] [address] Last CPE: Not Found 06/11/2025 11:05 AM EDT Office Visit [facility] [address] [place] [phone] Siomara Li MD [address] [place] [address] Keep this appt and Dr Britt can [...] of this encounter Procedures * Due to [place] law, this organization might not be sharing negative HIV tests. Procedure Name Priority Date/Time Associated Diagnosis Comments CULTURE, URINE, ROUTINE Routine 05/19/2023 2:34 PM EDT UTI symptoms URINALYSIS, COMPLETE INCLUDES DIPSTICK AND MICROSCOPIC Routine 05/19/2023 2:34 PM EDT UTI symptoms documented in this encounter Results * Due to [place] law, this organization might not be sharing negative HIV tests. * URINALYSIS, COMPLETE INCLUDES DIPSTICK AND MICROSCOPIC (05/19/2023 2:34 PM EDT) Color (Urine) YELLOW YELLOW [facility] Appearance (Urine) CLEAR CLEAR [facility] Specific gravity (Urine) 1.011 1.001 - 1.035 [facility] pH (Urine) 6.5 5.0 - 8.0 [facility] Glucose (Urine) NEGATIVE NEGATIVE [facility] Bilirubin (Urine) NEGATIVE NEGATIVE [facility] Ketones (Urine) NEGATIVE NEGATIVE [facility] Hemoglobin (Urine) NEGATIVE NEGATIVE [facility] Protein (Urine) NEGATIVE NEGATIVE [facility] Nitrite (Urine) NEGATIVE NEGATIVE [facility] Leukocyte esterase (Urine) NEGATIVE NEGATIVE [facility] WBC (Urine) NONE SEEN < OR = [...] elements. Only those elements seen were reported. 05/19/2023 2:34 PM EDT 05/20/2023 12:14 AM EDT Narrative Resulting Agency Comment [id number] us Johnny Frazier MD LAB SAME DAY RESULT Final Resu lt [facility] [address] [place] [address] * CULTURE, URINE, ROUTINE (05/19/2023 2:34 PM EDT) Bacteria culture (Urine) SEE NOTE [facility] Comment: ??CULTURE, URINE, ROUTINE ??Micro Number: ?[id number] ??Test Status: ? Final ??Specimen Source: ?? Urine ??Specimen Quality: ??Adequate ??Result: ?Mixed genital vicenta isolated. These superficial ? bacteria are not indicative of a urinary tract ? infection. No further organism identification is ? warranted on this specimen. If clinically ? indicated, recollect clean-catch, mid-stream ? urine and transfer immediately to Urine Culture ? Transport Tube. 05/19/2023 2:34 PM EDT 05/20/2023 12:14 AM EDT Narrative Resulting Agency Comment [id number] us Johnny Frazier MD LABORATORY Final Result [facility] [address] [place] [address] documented in this encounter Visit Diagnoses Diagnosis UTI symptoms Other symptoms involving urinary system documented in this encounter Care Teams Nutritionalist Relationship Specialty Start Date End Date Johnny Frazier MD [address] [facility] [address] PCP - General Family Medicine 04/22/22 documented as of this encounter
--- OUTSIDE RECORDS SUMMARY | 2025-01-21 18:21 | XMS_ITS | Encounter Summary ---
Author Organization [facility] Address [address] [place] [address] Care Team Providers Care Exterminator Termite Name Role Phone Johnny Izquierdo MD Primary Care Provider [phone] Johnny Frazier MD Primary Care Provider [phone] Encounter Details Date Type Department Care Team (Late st Contact Info) Description 07/07/2006 Orders Only [facility] [address] [place] [phone] Johnny Izquierdo MD [address] [place] [address] Social History Tobacco Use Types Packs/Day Years [...] Description 02/07/2025 9:25 AM EDT Office Visit [facility] [address] [place] [phone] Siomara Li MD [address] [place] [phone] Return in about 3 months (around 03/12/2025). 05/12/2025 12:45 PM EDT CPE - Comprehensive Physical Exam [facility] [address] [place] [address] Tiffanie Rebolledo, CERTIFIED SUBSTANCE ABUSE COUNSELOR 225 [facility] [place] [address] Last CPE: Not Found 06/11/2025 11:05 AM EDT Office Visit [facility] 225 [place] [address] Siomara Li MD [address] [place] [address] Keep this appt and Dr Britt can discuss at the January visit keep or move out documented as of this encounter Visit Diagnoses Not on filedocumented in this encounter Additional Health Concerns Infection Onset Date Last Indicated Resolved Time COVID-19 Rule-Out 09/12/2020 09/12/2020 12/07/2020 8:13 PM EST documented as of this encounter Care Teams Exterminator Termite Relationship Specialty Start Date End Date Johnny Izquierdo MD 225 [facility] [place] [address] PCP - General 01/14/06 04/21/22 Johnny Frazier MD [address] [facility] [place] [address] PCP - General Family Medicine 04/22/22 documented as of this encounter
--- OUTSIDE RECORDS SUMMARY | 2025-01-21 18:21 | XMS_ITS | Encounter Summary ---
Author Organization [facility] Address [address] [place] [address] Care Team Providers Care Supervising Floorperson Name Role Phone Johnny Izquierdo MD Primary Care Provider [phone] Johnny Frazier MD Primary Care Provider [phone] Reason for Visit * Reason Comments E-prescribing Refill Request Encounter Details Date Type Department Care Team (Late st Contact Info) Description 05/25/2016 Refill [facility] [address] [place] [phone] Johnny Izquierdo MD [address] [place], [place] [phone] E-prescribing Refill Request Social History Tobacco Use [...] encounter Miscellaneous Notes * Telephone Encounter - Trever Chasity - 05/25/2016 8:39 AM EDT Any special requests or concerns? none Faxed/E-prescribed medication renewal request(s) for Tatum Fine 65 y.o. female received from pharmacy. Verified and Confirmed pharmacy for patient. Last CPE with this specialty: 04/13/2010 Last OV with this specialty: 05/10/2016 Next OV: Future Appointments Date Time Provider Department Center 05/31/2016 9:50 AM Mary Prasad MD [facility] 06/02/2016 3:15 PM Maria Luisa Burkett, PT [facility] 06/07/2016 We will call Mary Prasad MD [facility] 06/08/2016 8:50 AM Mary Prasad MD [facility] 06/13/2016 9:40 AM Mary Prasad MD [facility] 06/14/2016 3:00 PM Jonathan Roberson MD [facility] 06/29/2016 9:45 AM Ale Prado, OD [facility] 06/30/2016 1:40 PM Grady Larsen DPM [facility] 07/05/2016 1:30 PM Severo Viramontes MD [facility] 07/19/2016 11:40 AM Johnny Izquierdo MD [facility] 07/22/2016 1:45 PM MD CORNELIA Gama Pertinent lab results: No labs suggested for any medication orders signed or pended in this encounter. Refresh if any orders changed. Allergies: Review of patient's allergies indicates no known allergies. BP Readings from Last 1 Encounters: 05/10/16 105/67 Patient Active Problem List Diagnosis Date Noted ??? Memory loss 03/11/2016 ??? Abnormal involuntary [...] Lianna Meléndez NP ??? MOOD DISORDER xx0.37xx (HCC) 08/19/2009 Lexapro 20 ??? Hypothyroidism (acquired) [...] to Visit Medication Sig Dispense Refill ??? Blood Glucose Monitoring Suppl (Living ProofSTYLE SYSTEM) Kit Use daily or as directed for monitoring of diabetes (DX:E11.9) 1 Kit 0 ??? Glucose Blood (FREESTYLE LITE) Strip test blood sugar twice daily (Dx E11.9) 60 Strip 0 ??? Glucose Blood (FREESTYLE LITE) Strip Use to test blood sugar twice daily 180 Strip 3 ??? Glucose Blood (ONE TOUCH ULTRA TEST) Strip Check blood sugars twice a day or as directed DX E11.9 100 Strip 11 ??? ESTRADIOL VAGINAL (ESTRACE VAGINAL) 0.1 MG/GM Cream 1 APPLICATOR NIGHTLY IN THE VAGINA FOR 1 WEEK THEN MONDAY, MONDAY AND MONDAY 42.5 g 11 ??? Lactulose 10 GM/15ML Solution TAKE 1 TABLESPOONFUL TWICE A DAY NEEDED 960 mL 1 ??? Lactulose 10 GM/15ML Solution TAKE 1 TABLESPOONFUL TWICE A DAY NEEDED 960 mL 1 ??? Glucose Blood Strip Check blood sugar 3-4 times a day or as directed (Dx E11.9) 100 Strip 11 ??? Oxybutynin Chloride (DITROPAN XL) 15 MG TABLET SR 24 HR 1 TABLET DAILY 90 Tab 3 ??? Atorvastatin Calcium 40 MG Tab TAKE 1 TABLET DAILY 90 Tab 3 ??? Lamotrigine 200 MG Tab 1 tablet daily ??? Naproxen 375 MG Tab 1 by mouth twice daily as needed for pain 180 Tab 3 ??? Gabapentin 100 MG Cap 1-3 by mouth at night 90 Cap 3 ??? MetFORMIN HCl 850 MG Tab take [...] 12 units daily 4 Vial 5 ??? Ranitidine HCl 150 MG Tab TAKE 1 TABLET TWICE A DAY 180 Tab 2 ??? Mometasone Furoate (NASONEX) 50 MCG/ACT Suspension 2 sprays each nostril twice per day DX J30.93 Inhaler 3 ??? Levothyroxine Sodium 125 MCG Tab TAKE 1 TABLET EVERY MORNING 90 Tab 3 ??? Ziprasidone HCl 60 MG Cap 1 CAPSULE AT NIGHT ??? ALBUTEROL SULFATE (PROAIR HFA) 108 (90 BASE) MCG/ACT Aero Soln Inhale 2 puffs every 4-6 hours as needed for wheezing or shortness of breath 3 Inhaler 1 ??? Blood Glucose Monitoring Suppl (ONE TOUCH ULTRA SYSTEM KIT) W/DEVICE Kit USE DIRECTED TO CHECK BLOOD SUGARS TWICE DAILY (DX 250.00) 1 Kit 0 ??? Benztropine Mesylate 0.5 MG Tab TAKE ONE TABLET BY MOUTH 2 TIMES A DAY, 1 TABLET IN THE MORNINGAND 1 TABLET AT BEDTIME 60 Tab 6 ??? ClonazePAM 0.5 MG Tab 1 TABLET DAILY 90 Tab 1 ??? Escitalopram Oxalate 20 MG Tab 1 TABLET DAILY 30 Tab 11 ??? ASPIRIN (LOW-DOSE ASPIRIN) 81 MG OR TABS 1 TABLET DAILY documented in this encounter Plan of Treatment Upcoming Encounters Date Type Department Care Team (Latest Contact Info) Description 02/07/2025 9:25 AM EDT Office Visit [facility] [address] [place] [address] Siomara Li MD [address] [place] [address] Return in about 3 months (around 03/12/2025). 05/12/2025 12:45 PM EDT CPE - Comprehensive Physical Exam [facility] [address] [place] [address] Tiffanie Rebolledo, CUSTODIAL LABORER [address] [place] [address] Last CPE: Not Found 06/11/2025 11:05 AM EDT Office Visit [facility] [address] [place] [phone] Siomara Li MD [address] [place] [address] Keep this appt and Dr Britt can [...] documented as of this encounter Care Teams Supervising Floorperson Relationship Specialty Start Date End Date Johnny Izquierdo MD [address] [place] [address] PCP - General 01/14/06 04/21/22 Johnny Frazier MD [address] [place] [address] PCP - General Family Medicine 04/22/22 documented as of this encounter
--- OUTSIDE RECORDS SUMMARY | 2025-01-21 18:21 | XMS_ITS | Encounter Summary ---
Author Organization [facility] Address [address] [place] [address] Care Team Providers Care Finisher Special Stocks Name Role Phone Johnny Frazier MD Primary Care Provider [phone] Reason for Visit * Reason Comments E-prescribing Refill Request Encounter Details Date Type Department Care Team (Late st Contact Info) Description 02/17/2023 Refill [facility] [address] [place] [phone] Johnny Izquierdo MD [address] [place], [place] [phone] E-prescribing Refill Request Social History Tobacco Use [...] Description 02/07/2025 9:25 AM EDT Office Visit [facility] [address] [place] [phone] Siomara Li MD [address] [place] [phone] Return in about 3 months (around 03/12/2025). 05/12/2025 12:45 PM EDT CPE - Comprehensive Physical Exam [facility] [address] [place] [address] Tiffanie Rebolledo, PLATING TANK OPERATOR [address] [place] [address] Last CPE: Not Found 06/11/2025 11:05 AM EDT Office Visit [facility] [address] [place] [phone] Siomara Li MD [address] [place] [address] Keep this appt and Dr Britt can [...] on filedocumented in this encounter Care Teams Finisher Special Stocks Relationship Specialty Start Date End Date Johnny Frazier MD [address] [place] [address] PCP - General Family Medicine 04/22/22 documented as of this encounter
--- OUTSIDE RECORDS SUMMARY | 2025-01-21 18:21 | XMS_ITS | Encounter Summary ---
Author Organization [facility] Address [address] [place] [address] Care Team Providers Care Transportation Agent Name Role Phone Johnny Frazier MD Primary Care Provider [phone] Encounter Details Date Type Department Care Team (Late st Contact Info) Description 04/17/2023 Orders Only [facility] [address] [place] [phone] Wilbur Espinal DNP [address] [place] [address] Social History Tobacco Use Types Packs/Day Years [...] Miscellaneous Notes * Result Encounter Note - Wilbur Espinal DNP - 04/17/2023 1:51 PM EDT Please call patient. Urine culture indicates low levels of bacteria. Due to patient's symptoms, would recommend treatment with Macrobid 100 mg twice daily for 5 days. Please send once patient aware. Should follow-up with PCP team if symptoms do not improve following treatments documented in this encounter Plan of Treatment Upcoming Encounters Date Type Department Care Team (Latest Contact Info) Description 02/07/2025 9:25 AM EDT Office Visit [facility] [address] [place] [address] Siomara Li MD [address] [place] [address] Return in about 3 months (around 03/12/2025). 05/12/2025 12:45 PM EDT CPE - Comprehensive Physical Exam [address] [phone] Tiffanie Rebolledo, CLINICAL ASST [address] [place] [address] Last CPE: Not Found 06/11/2025 11:05 AM EDT Office Visit [facility] [address] [place] [phone] Siomara Li MD [address] [place] [address] Keep this appt and Dr Britt can [...] Associated Diagnosis Comments CULTURE, URINE, ROUTINE Routine 04/17/2023 1:51 PM EDT Left flank pain URINALYSIS, COMPLETE INCLUDES DIPSTICK AND MICROSCOPIC Routine 04/17/2023 1:51 PM EDT Left flank pain documented in this encounter Results * Due to [place] state law, this organization might not be sharing negative HIV tests. * URINALYSIS, COMPLETE INCLUDES DIPSTICK AND MICROSCOPIC (04/17/2023 1:51 PM EDT) Color (Urine) YELLOW YELLOW [facility] Appearance (Urine) CLEAR CLEAR [facility] Specific gravity (Urine) 1.009 1.001 - 1.035 [facility] pH (Urine) 5.5 5.0 - 8.0 [facility] Glucose (Urine) [...] elements. Only those elements seen were reported. 04/17/2023 1:51 PM EDT 04/18/2023 12:53 AM EDT Narrative Resulting Agency Comment [id number] us Wilbur Espinal DNP LAB SAME DAY RESULT Final Re sult [facility] [address] [place] [address] * (ABNORMAL) CULTURE, URINE, ROUTINE (04/17/2023 1:51 PM EDT) Bacteria culture (Urine) SEE NOTE(A) [facility] Comment: ??CULTURE, URINE, ROUTINE ??Micro Number: ?[id number] ??Test Status: ? Final ??Specimen Source: ?? Urine ??Specimen Quality: ??Adequate ??Result: ?10,000-49,000 CFU/mL of Enterococcus faecalis ??COMMENT: ? Additional non-predominating organism(s) isolated. ? These organisms, commonly found on external and ? internal genitalia, are considered colonizers. No ? further testing performed. ?E.faecalis ?INT ?? GOOD ?? AMPICILLIN ? S ? <=2 ?? NITROFURANTOIN ? S ? <=16 ?? VANCOMYCIN ? S ? 2 S=Susceptible ??I=Intermediate ??R=Resistant ??* = Not Tested NR = Not Reported ??NN = See Therapy Comments 04/17/2023 1:51 PM EDT 04/18/2023 12:53 AM EDT Narrative Resulting Agency Comment [id number] us Wilbur Espinal DNP LABORATORY Final Result [facility] [address] [place] [address] documented in this encounter Visit Diagnoses Diagnosis Left flank pain Abdominal pain, unspecified site documented in this encounter Care Teams Transportation Agent Relationship Specialty Start Date End Date Johnny Frazier MD [address] [facility] [place] [phone] PCP - General Family Medicine 04/22/22 documented as of this encounter
--- OUTSIDE RECORDS SUMMARY | 2025-01-21 18:21 | XMS_ITS | Encounter Summary ---
Author Organization [facility] Address [address] [place] [address] Care Team Providers Care Real Estate Acquisition Analyst Name Role Phone Johnny Izquierdo MD Primary Care Provider [phone] Johnny Frazier MD Primary Care Provider [phone] Encounter Details Date Type Department Care Team (Late st Contact Info) Description 05/06/2015 Orders Only [facility] [address] [place] [phone] Arabella Solares PA Social History Tobacco Use [...] Description 02/07/2025 9:25 AM EDT Office Visit [facility] [address] [place] [phone] Siomara Li MD [address] [place] [address] Return in about 3 months (around 03/12/2025). 05/12/2025 12:45 PM EDT CPE - Comprehensive Physical Exam [facility] [address] [place] [address] Tiffanie Rebolledo NP [address] [place] [address] Last CPE: Not Found 06/11/2025 11:05 AM EDT Office Visit [facility] [address] [place] [address] Siomara Li MD [address] [place] [address] Keep this appt and Dr Britt can [...] this encounter Procedures * Due to [place] state law, this organization might not be sharing negative HIV tests. Procedure Name Priority Date/Time Associated Diagnosis Comments TSH, 3RD GENERATION Routine 05/06/2015 9 :05 AM EDT Hypothyroidism documented in this encounter Results * Due to [place] [employer] law, this organization might not be sharing negative HIV tests. * TSH, 3RD GENERATION (05/06/2015 9:05 AM EDT) TSH 1.64 0.40 - 4.50 mIU/L [facility] Comment:{TSH {[id number]) 05/06/2015 9:0 5 AM EDT 05/06/2015 3:20 PM EDT Narrative Resulting Agency Comment [id number] Arabella SHEEHAN LABORATORY Final Result [facility] [address] [place] [address] documented in this encounter Visit Diagnoses Diagnosis Hypothyroidism Unspecified hypothyroidism documented in this encounter Additional Health Concerns Infection Onset Date Last Indicated Resolved Time COVID-19 Rule-Out 09/12/2020 09/12/2020 12/07/2020 8:13 PM EST documented as of this encounter Care Teams Real Estate Acquisition Analyst Relationship Specialty Start Date End Date Johnny Izquierdo MD [address] [place] [address] PCP - General 01/14/06 04/21/22 Johnny Frazier MD [address] [place] [address] PCP - General Family Medicine 04/22/22 documented as of this encounter
--- OUTSIDE RECORDS SUMMARY | 2025-01-21 18:21 | XMS_ITS | Encounter Summary ---
Author Organization [facility] Address [address] [place] [address] Care Team Providers Care Mass Spectrometry Specialist Name Role Phone Johnny Izquierdo MD Primary Care Provider Johnny Frazier MD Primary Care Provider [phone] Encounter Details Date Type Department Care Team (Late st Contact Info) Description 06/27/2012 Orders Only [facility] [address] [place] [phone] Latoya Taylor NP Social History Tobacco Use Types Packs/Day [...] as of this encounter Progress Notes * Latoya Collins NP - 06/29/2012 8:46 AM EDTQuick Note: Normal letter sent. Latoya Collins NP documented in this encounter Plan of Treatment Upcoming Encounters Date Type Department Care Team (Latest Contact Info) Description 02/07/2025 9:25 AM EDT Office Visit [facility] [address] [place] [phone] NanSiomara mccoy MD [address] [place] [address] Return in about 3 months (around 03/12/2025). 05/12/2025 12:45 PM EDT CPE - Comprehensive Physical Exam [facility] [address] [place] [address] Tiffanie Rebolledo, DENTAL SCHEDULER [address] [place] [address] Last CPE: Not Found 06/11/2025 11:05 AM EDT Office Visit [facility] [address] [place] [phone] Siomara Li MD [address] [place] [address] Keep this appt and Dr Britt can discuss at the Kelsi visit keep or move out documented as of this encounter Procedures * Due to [facility] law, this organization might not be sharing negative HIV tests. Procedure Name Priority Date/Time Associated Diagnosis Comments BV/VAGINITIS PANELDNA PROBE(AFFIRM) Routine 06/27/2012 4:39 PM EDT Vaginal discharge documented in this encounter Results * Due to [facility] law, this organization might not be sharing negative HIV tests. * BV/VAGINITIS PANELDNA PROBE (06/27/2012 4:39 PM EDT) Trichomonas vaginalis rRNA (Genital) NOT DETECTED NOT DETECTED [facility] Comment:{TRICHOMONAS: {[id number]) Gardnerella vaginalis rRNA (Genital) NOT DETECTED NOT DETECTED [facility] Comment:{GARDNERELLA: {[id number]) Adela sp rRNA (Vag) NOT DETECTED NOT DETECTED [facility] Comment:{ADELA: {[id number]) 06/27/2012 4:39 PM EDT 06/28/2012 12:47 AM EDT Narrative Resulting Agency Comment [id number] us Latoya Taylor DENTAL SCHEDULER LABORATORY Final Result Performing Organization Address City/State/[facility] Co de Phone Number [facility] [address] [place] [address] documented in this encounter Visit Diagnoses Diagnosis Vaginal discharge Leukorrhea, not specified as infective documented in this encounter Additional Health Concerns Infection Onset Date Last Indicated Resolved Time COVID-19 Rule-Out 09/12/2020 09/12/2020 12/07/2020 8:13 PM EST documented as of this encounter Care Teams Mass Spectrometry Specialist Relationship Specialty Start Date End Date Johnny Izquierdo MD [address] [place] [address] PCP - General 01/14/06 04/21/22 Johnny Frazier MD [address] [place] [address] PCP - General Family Medicine 04/22/22 documented as of this encounter
--- OUTSIDE RECORDS SUMMARY | 2025-01-21 18:21 | XMS_ITS | Encounter Summary ---
Author Organization [facility] Address [address] [place] [address] Care Team Providers Care Roll Builder Name Role Phone Johnny Izquierdo MD Primary Care Provider [phone] Johnny Frazier MD Primary Care Provider [phone] Encounter Details Date Type Department Care Team (Late st Contact Info) Description 05/10/2016 Orders Only [facility] [address] [place] [phone] Linda Dickson, SOPHIE Social History Tobacco Use [...] encounter Progress Notes * Linda Dickson - 05/11/2016 3:44 PM EDTQuick Note: Cleared for surgery documented in this encounter Plan of Treatment Upcoming Encounters Date Type Department Care Team (Latest Contact Info) Description 02/07/2025 9:25 AM EDT Office Visit [facility] [address] [place] [phone] NanSiomara mccoy MD [address] [place] [address] Return in about 3 months (around 03/12/2025). 05/12/2025 12:45 PM EDT CPE - Comprehensive Physical Exam [facility] [address] [place] [address] Tiffanie Rebolledo, CAT HOOKER [address] [place] [address] Last CPE: Not Found 06/11/2025 11:05 AM EDT Office Visit [facility] [address] [place] [address] Siomara Li MD [address] [place] [address] Keep this appt and Dr Britt can [...] this encounter Procedures * Due to [place] [employer] law, this organization might not be sharing negative HIV tests. Procedure Name Priority Date/Time Associated Diagnosis Comments EKG-TO BE READ & BILLED BY ADULT OR PEDIATRIC CARDIOLOGY Routine 05/10/2016 4:34 PM EDT Cataracts, bilateral CBC INCLUDES DIFFERENTIAL AND PLATELET COUNT Routine 05/10/2016 4:25 PM EDT Cataracts, bilateral BASIC METABOLIC PANEL WITH (GFR) Routine 05/10/2016 4:25 PM EDT Cataracts, bilateral documented in this encounter Results * Due to [place] state law, this organization might not be sharing negative HIV tests. * EKG-TO BE READ AND BILLED BY CARDIOLOGY (05/10/2016 4:34 PM EDT) VENTRICULAR RATE 52 BPM MUS E EKG SYSTEM ATRIAL RATE 52 BPM MUSE EKG SYSTEM P-R INTERVAL 204 ms MUSE EK G SYSTEM QRS DURATION 80 ms MUSE EK G SYSTEM QT 446 ms MUSE EKG SYSTEM QTC 414 ms MUSE EKG SYSTEM P AXIS 18 degrees MUSE EKG SYSTEM R AXIS -3 degrees MUSE EKG SYSTEM T AXIS 16 degrees MUSE EKG SYSTEM EKG INTERPRETATION Sinus bradycardia Otherwise normal ECG When compared with ECG of 10-JUL-2014 11:54, No significant change was found MUSE EKG SYSTEM 05/10/2016 4:34 PM EDT 05/11/2016 7:35 AM EDT Linda Dickson NP CARDIOVASCULAR-WITH INBSKT R TG Final Result MUSE EKG SYSTEM * (ABNORMAL) BASIC METABOLIC PANEL WITH (GFR) (05/10/2016 4:25 PM EDT) Glucose 86 65 - 99 mg/dL [facility] Comment: {GLUCOSE {[id number]) ? Fasting reference interval Urea Nitrogen Blood (BUN) 15 7 - 25 mg/dL [facility] Comment:{UREA NITROGEN (BUN) {[id number]) Creatinine 1.00(H) 0.50 - 0.99 mg/dL [facility] Comment: {CREATININE {[id number]) For patients >49 years of age, the reference limit for Creatinine is approximately 13% higher for people identified as -Albanian. GFR 59(L) > OR = 60 mL/min/1. 73m2 [facility] Comment:{eGFR NON-AFR. AMERI CAN {[id number]) GFR () 69 > OR = 60 mL/min/1. 73m2 [facility] Comment:{eGFR AMERIC AN {[id number]) BUN/Creatinine Ratio 15 6 - 22 (calc) [facility] Comment:{BUN/CREATININE RATI O {[id number]) Sodium 139 135 - 146 mmol/L [facility] Comment:{SODIUM {[id number]) Potassium 4.7 3.5 - 5.3 mmol/L [facility] Comment:{POTASSIUM {[id number]) Chloride 101 98 - 110 mmol/L [facility] Comment:{CHLORIDE {[id number]) Carbon dioxide 29 19 - 30 mmol/L [facility] Comment:{CARBON DIOXIDE {[id number]) Calcium 9.5 8.6 - 10.4 mg/dL [facility] Comment:{CALCIUM {[id number]) 05/10/2016 4:25 PM EDT 05/10/2016 11:02 PM EDT Narrative [facility] - 05/11/2016 5:14 AM EDT Please note that this estimated [...] needs for GFR calculation. Resulting Agency Comment [id number] Linda Dickson NP LABORATORY Final Result [facility] [address] [place] [address] * CBC INCLUDES DIFFERENTIAL AND PLATELET COUNT (05/10/2016 4:25 PM EDT) WBC 8.2 3.8 - 10.8 Thousand/u L [facility] Comment:{WHITE BLOOD CELL CO UNT {[id number]) RBC 4.62 3.80 - 5.10 Million/uL [facility] Comment:{RED BLOOD CELL COUN T {[id number]) Hemoglobin 14.2 11.7 - 15.5 g/dL [facility] Comment:{HEMOGLOBIN {[id number]) Hematocrit 41.2 35.0 - 45.0 % [facility] Comment:{HEMATOCRIT {[id number]) MCV 89.1 80.0 - 100.0 fL [facility] Comment:{MCV {[id number]) MCH 30.7 27.0 - 33.0 pg [facility] Comment:{MCH {[id number]) MCHC 34.4 32.0 - 36.0 g/dL [facility] Comment:{MCHC {[id number]) RDW 13.2 11.0 - 15.0 % [facility] Comment:{RDW {[id number]) PLT 145 140 - 400 Thousand/u L [facility] Comment:{PLATELET COUNT {[id number]) MPV 11.1 7.5 - 11.5 fL [facility] Comment:{MPV {[id number]) Neutrophils # 4879 1500 - 7800 cells/uL [facility] Comment:{ABSOLUTE NEUTROPHIL S {[id number]) Lymphocytes # 2526 850 - 3900 cells/uL [facility] Comment:{ABSOLUTE LYMPHOCYTE S {[id number]) Monocytes # 566 200 - 950 cells/uL [facility] Comment:{ABSOLUTE MONOCYTES {[id number]) Eosinophils # 131 15 - 500 cells/uL [facility] Comment:{ABSOLUTE EOSINOPHIL S {[id number]) Basophils # 98 0 - 200 cells/uL [facility] Comment:{ABSOLUTE BASOPHILS {[id number]) Neutrophils % 59.5 % [facility] Comment:{NEUTROPHILS {[id number]) Lymphocytes % 30.8 % [facility] Comment:{LYMPHOCYTES {[id number]) Monocytes % 6.9 % [facility] Comment:{MONOCYTES {[id number]) Eosinophils % 1.6 % [facility] Comment:{EOSINOPHILS {[id number]) Basophils % 1.2 % [facility] Comment:{BASOPHILS {[id number]) 05/10/2016 4:25 PM EDT 05/10/2016 11:02 PM EDT Narrative Resulting Agency Comment [id number] Linda Dickson [facility] SAME DAY RESULT Final Re sult [facility] [address] [place] [address] documented in this encounter Visit Diagnoses Diagnosis Cataracts, bilateral Unspecified cataract documented in this encounter Additional Health Concerns Infection Onset Date Last Indicated Resolved Time COVID-19 Rule-Out 09/12/2020 09/12/2020 12/07/2020 8:13 PM EST documented as of this encounter Care Teams Roll Builder Relationship Specialty Start Date End Date Johnny Izquierdo MD [address] [place] [address] PCP - General 01/14/06 04/21/22 Johnny Frazier MD [address] [place] [address] PCP - General Family Medicine 04/22/22 documented as of this encounter
--- OUTSIDE RECORDS SUMMARY | 2025-01-21 18:21 | XMS_ITS | Encounter Summary ---
Author Organization [facility] Address [address] [place] [address] Care Team Providers Care Concentrator Operator Name Role Phone Johnny Izquierdo MD Primary Care Provider [phone] Johnny Frazier MD Primary Care Provider [phone] Reason for Visit * Reason Comments E-prescribing Refill Request Encounter Details Date Type Department Care Team (Late st Contact Info) Description 04/10/2020 Refill [facility] [address] [place] [phone] Johnny Izquierdo MD [address] [place], [place] [phone] E-prescribing Refill Request Social History Tobacco Use [...] PM EDT documented as of this encounter Miscellaneous Notes * Telephone Encounter - Chasity Perera CMA - 04/10/2020 10:12 AM EDT Special Concerns: BPA,please advise. Faxed medication renewal request(s) for Tatum Fine 69 y.o. female received from pharmacy. Entered this pharmacy as preferred pharmacy for patient. Last CPE with this specialty: 05/29/2017 Last OV with this specialty: 04/08/2020 Next OV: Future Appointments Date Time Provider Department Phone 04/10/20 10:15 AM Deangelo Lindsay OD [facility] [phone] 04/14/20 1:[address] LDN CDE [facility] [phone] 04/15/20 2:30 PM Kashif Mccullough DPM [facility] [phone] 05/14/20 11:30 AM LLR MAMMOGRAPHY ROOM1 [facility] [phone] 05/20/20 1:15 PM Ginette Kincaid MD [facility]ne[facility] [phone] 08/10/20 11:40 AM Tiffanie Rebolledo NP [facility] [phone] 04/07/21 12:45 PM Siomara Li MD [facility] [phone] Pertinent lab results: Lab Results Component Value [...] negative, can stop screening paps. ??? Diabetes ([facility]) 09/19/2016 Type II, controlled on Lantus 12 [...] 02/16/2016 ??? Bipolar affective disorder in remission ([facility]) 03/26/2015 On lamictal 20mg ??? Essential hypertension [...] 01/21/2011 01/21/11 hospitalized at [facility]. Had cardiac catheterization which was normal, both [...] to Visit Medication Sig Dispense Refill ??? Sertraline HCl (ZOLOFT) 25 MG tablet Take one tablet (25 mg total) by mouth 1 (one) time each day 30 tablet 0 ??? Sertraline HCl (ZOLOFT) 25 MG tablet Take one tablet (25 mg total) by mouth 1 (one) time each day 90 tablet 3 ??? traZODone HCl (DESYREL) 100 MG tablet Take 2 tabs po at night 60 tablet 5 ??? MetFORMIN HCl (GLUCOPHAGE-XR) 500 MG 24 [...] time each day 90 tablet 3 ??? Lisinopril (PRINIVIL,ZESTRIL) 5 MG tablet TAKE 1 TABLET(5 MG) BY MOUTH 1 TIME EACH DAY 30 tablet 0 ??? Omeprazole (PriLOSEC OTC) 20 MG EC [...] Description 02/07/2025 9:25 AM EDT Office Visit [facility] [address] [place] [address] Siomara Li MD [address] [place] [address] Return in about 3 months (around 03/12/2025). 05/12/2025 12:45 PM EDT CPE - Comprehensive Physical Exam [facility] [address] [place] [address] Tiffanie Rebolledo NP [address] [place] [address] Last CPE: Not Found 06/11/2025 11:05 AM EDT Office Visit [facility] [address] [place] [address] Siomara Li MD [address] [place] [address] Keep this appt and Dr Britt can [...] documented as of this encounter Care Teams Concentrator Operator Relationship Specialty Start Date End Date Johnny Izquierdo MD [address] [place] [address] PCP - General 01/14/06 04/21/22 Johnny Frazier MD [address] [place] [address] PCP - General Family Medicine 04/22/22 documented as of this encounter
--- OUTSIDE RECORDS SUMMARY | 2025-01-21 18:21 | XMS_ITS | Encounter Summary ---
Author Organization [facility] Address [address] [place] [address] Care Team Providers Care Fruit Packer Name Role Phone Johnny Frazier MD Primary Care Provider [phone] Encounter Details Date Type Department Care Team ( Contact Info) Description 04/08/2024 Orders Only [facility] [address] [facility] [address] [place] [address] Sonia Waters, INTRAMURAL DIRECTOR [address] [place] [address] Social History Tobacco Use Types Packs/Day Years [...] Description 02/07/2025 9:25 AM EDT Office Visit [facility] [address] [place] [address] Siomara Li MD [address] [place] [address] Return in about 3 months (around 03/12/2025). 05/12/2025 12:45 PM EDT CPE - Comprehensive Physical Exam [facility] [address] [place] [address] Tiffanie Rebolledo NP [address] [place] [address] Last CPE: Not Found 06/11/2025 11:05 AM EDT Office Visit [facility] [address] [place] [address] Siomara Li MD [address] [place] [address] Keep this appt and Dr Britt can [...] Procedure Name Priority Date/Time Associated Diagnosis Comments MEASUREMENT, POST-VOIDING RESIDUAL URINE &/OR BLADDER CAPACITY, US, NON-IMAGING Routine 04/08/2024 3:01 PM EDT OAB (overactive bladder) documented in this encounter Visit Diagnoses Diagnosis OAB (overactive bladder) Hypertonicity of bladder documented in this encounter Care Teams Fruit Packer Relationship Specialty Start Date End Date Johnny Frazier MD [address] [facility] [address] PCP - General Family Medicine 04/22/22 documented as of this encounter
--- OUTSIDE RECORDS SUMMARY | 2025-01-21 18:21 | XMS_ITS | Encounter Summary ---
Author Organization [facility] Address [address] [place] [address] Care Team Providers Care Weight And Test Bar Clerk Name Role Phone Johnny Izquierdo MD Primary Care Provider [phone] Johnny Frazier MD Primary Care Provider [phone] Encounter Details Date Type Department Care Team (Late st Contact Info) Description 08/29/2017 Orders Only [facility] Gynecology [address] [facility] [address] [place] [address] Eliseo Kirkland MD [address] [place] [address] Social History Tobacco Use Types Packs/Day Years [...] as of this encounter Progress Notes * Roselia Gill LPN - 08/31/2017 1:46 PM EST Negative letter sent. documented in this encounter Plan of Treatment Upcoming Encounters Date Type Department Care Team (Latest Contact Info) Description 02/07/2025 9:25 AM EDT Office Visit [facility] [address] [place] [address] Siomara Li MD [address] [place] [address] Return in about 3 months (around 03/12/2025). 05/12/2025 12:45 PM EDT CPE - Comprehensive Physical Exam [facility] [address] [place] [address] Tiffanie Rebolledo, OBSERVER ELECTRICAL PROSPECTING [address] [place] [address] Last CPE: Not Found 06/11/2025 11:05 AM EDT Office Visit [facility] [address] [place] [address] Siomara Li MD [address] [place] [address] Keep this appt and Dr Britt can [...] this encounter Procedures * Due to [place] [employer] law, this organization might not be sharing negative HIV tests. Procedure Name Priority Date/Time Associated Diagnosis Comments CULTURE, URINE, ROUTINE Routine 08/29/2017 2:00 PM EST OAB (overactive bladder) Bladder pain Chronic interstitial cystitis documented in this encounter Results * Due to [place] [employer] law, this organization might not be sharing negative HIV tests. * CULTURE, URINE, ROUTINE (08/29/2017 2:00 PM EST) Bacteria culture (Urine) SEE NOTE [facility] Comment: ??CULTURE, URINE, ROUTINE ??MICRO NUMBER: ?[id number] ??TEST STATUS: ? FINAL ??SPECIMEN SOURCE: ?? URINE ??SPECIMEN QUALITY: ??ADEQUATE ??RESULT: ?No Growth 08/29/2017 2:00 PM EST 08/29/2017 8:56 PM EST Narrative Resulting Agency Comment [id number] us Eliseo Kirkland MD LABORATORY Final Result [facility] [address] [place] [address] documented in this encounter Visit Diagnoses Diagnosis OAB (overactive bladder) Hypertonicity of bladder Bladder pain Other symptoms involving urinary system Chronic interstitial cystitis documented in this encounter Additional Health Concerns Infection Onset Date Last Indicated Resolved Time COVID-19 Rule-Out 09/12/2020 09/12/2020 12/07/2020 8:13 PM EST documented as of this encounter Care Teams Weight And Test Bar Clerk Relationship Specialty Start Date End Date Johnny Izquierdo MD [address] [place] [address] PCP - General 01/14/06 04/21/22 Johnny Frazier MD [address] [place] [address] PCP - General Family Medicine 04/22/22 documented as of this encounter
--- OUTSIDE RECORDS SUMMARY | 2025-01-21 18:21 | XMS_ITS | Encounter Summary ---
Author Organization [facility] Address [address] [place] [address] Care Team Providers Care Monogram Technician Name Role Phone Johnny Izquierdo MD Primary Care Provider [phone] Johnny Frazier MD Primary Care Provider [phone] Encounter Details Date Type Department Care Team (Late st Contact Info) Description 04/18/2015 Orders Only [facility] FACE BURLER [address] [facility] [address] [place] [phone] Ginette Kincaid MD Social History Tobacco Use Types Packs/Day [...] Progress Notes * Linda Reynoso RN - 04/21/2015 8:57 AM EDTQuick Note: Negative urine culture, letter sent documented in this encounter Plan of Treatment Upcoming Encounters Date Type Department Care Team (Latest Contact Info) Description 02/07/2025 9:25 AM EDT Office Visit [facility] [address] [place] [phone] Siomara Li MD [address] [place], [place] [phone] Return in about 3 months (around 03/12/2025). 05/12/2025 12:45 PM EDT CPE - Comprehensive Physical Exam [facility] [address] [place] [address] Tiffanie Rebolledo, PATENT LAW SPECIALIST [address] [place] [address] Last CPE: Not Found 06/11/2025 11:05 AM EDT Office Visit [facility] [address] [place] [phone] Siomara Li MD [address] [place] [address] Keep this appt and Dr Britt can [...] this encounter Procedures * Due to [place] [employer] law, this organization might not be sharing negative HIV tests. Procedure Name Priority Date/Time Associated Diagnosis Comments URINALYSIS DIP W/ REFLEX TO MICROSCOPIC+CULTURE Routine 04/18/2015 12:34 PM EDT Urinary frequency CULTURE, URINE, ROUTINE Routine 04/18/2015 12:34 PM EDT Urinary frequency documented in this encounter Results * Due to [place] [employer] law, this organization might not be sharing negative HIV tests. * CULTURE, URINE, ROUTINE (04/18/2015 12:34 PM EDT) Bacteria culture (Urine) SEE NOTE [facility] Comment: {CULTURE, URINE, ROUTINE {[id number]) ??CULTURE, URINE, ROUTINE ??MICRO NUMBER: ?[id number] ??TEST STATUS: ? FINAL ??SPECIMEN SOURCE: ?? URINE ??SPECIMEN QUALITY: ??ADEQUATE ??RESULT: ?Multiple organisms present, each less than 10,000 ? CFU/mL. These organisms, commonly found on ? external and internal genitalia, are considered ? to be colonizers. No further testing performed. 04/18/2015 12:3 4 PM EDT 04/18/2015 7:10 PM EDT Narrative Resulting Agency Comment [id number] Ginette Kincaid MD LABORATORY Final Resul t [facility] [address] [place] [address] * (ABNORMAL) URINALYSIS DIP W/ REFLEX TO MICROSCOPIC+CULTURE (04/18/2015 12:34 PM EDT) Color (Urine) YELLOW YELLOW [facility] Comment:{COLOR {[id number]) Appearance (Urine) CLEAR CLEAR [facility] Comment:{APPEARANCE {[id number]) Specific gravity (Urine) 1.013 1.001 - 1.035 [facility] Comment:{SPECIFIC GRAVITY {[id number]) pH (Urine) 6.0 5.0 - 8.0 [facility] Comment:{PH {[id number]) Glucose (Urine) NEGATIVE NEGATIVE [facility] Comment:{GLUCOSE {[id number]) Bilirubin (Urine) NEGATIVE NEGATIVE [facility] Comment:{BILIRUBIN {[id number]) Ketones (Urine) NEGATIVE NEGATIVE [facility] Comment:{KETONES {[id number]) Hemoglobin (Urine) NEGATIVE NEGATIVE [facility] Comment:{OCCULT BLOOD {[id number]) Protein (Urine) NEGATIVE NEGATIVE [facility] Comment:{PROTEIN {[id number]) Nitrite (Urine) NEGATIVE NEGATIVE [facility] Comment:{NITRITE {[id number]) Leukocyte esterase (Urine) 1+(A) NEGATIVE [facility] Comment:{LEUKOCYTE ESTERASE {[id number]) 04/18/2015 12:3 4 PM EDT 04/18/2015 7:10 PM EDT Narrative Resulting Agency Comment [id number] Ginette Kincaid MD LABORATORY Final Resul t [facility] [address] [place] [address] documented in this encounter Visit Diagnoses Diagnosis Urinary frequency documented in this encounter Additional Health Concerns Infection Onset Date Last Indicated Resolved Time COVID-19 Rule-Out 09/12/2020 09/12/2020 12/07/2020 8:13 PM EST documented as of this encounter Care Teams Monogram Technician Relationship Specialty Start Date End Date Johnny Izquierdo MD [address] [place] [address] PCP - General 01/14/06 04/21/22 Johnny Frazier MD [address] [place] [address] PCP - General Family Medicine 04/22/22 documented as of this encounter
--- OUTSIDE RECORDS SUMMARY | 2025-01-21 18:21 | XMS_ITS | Encounter Summary ---
Author Organization [facility] Address [address] [place] [address] Care Team Providers Care Safety Risk Lead Name Role Phone Johnny Frazier MD Primary Care Provider [phone] Reason for Visit * Reason Comments E-prescribing Refill Request Encounter Details Date Type Department Care Team (Late st Contact Info) Description 02/13/2023 Refill [facility] [address] [place] [phone] Johnny Izquierdo MD [address] [place], [place] [phone] E-prescribing Refill Request Social History Tobacco Use [...] Description 02/07/2025 9:25 AM EDT Office Visit [facility] [address] [place] [address] Siomara Li MD [address] [place] [phone] Return in about 3 months (around 03/12/2025). 05/12/2025 12:45 PM EDT CPE - Comprehensive Physical Exam [facility] [address] [place] [address] Tiffanie Rebolledo, ASSISTED LIVING NURSING DIRECTOR [address] [place] [address] Last CPE: Not Found 06/11/2025 11:05 AM EDT Office Visit [facility] [address] [place] [address] Siomara Li MD [address] [place] [address] Keep this appt and Dr Britt can [...] on filedocumented in this encounter Care Teams Safety Risk Lead Relationship Specialty Start Date End Date Johnny Frazier MD [address] [place] [address] PCP - General Family Medicine 04/22/22 documented as of this encounter
--- OUTSIDE RECORDS SUMMARY | 2025-01-21 18:21 | XMS_ITS | Encounter Summary ---
Author Organization [facility] Address [address] [place] [address] Care Team Providers Care Puddler Pile Driving Name Role Phone Johnny Izquierdo MD Primary Care Provider [phone] Johnny Frazier MD Primary Care Provider [phone] Encounter Details Date Type Department Care Team (Late st Contact Info) Description 07/12/2006 Orders Only [facility] [address] [place] [phone] Johnny Izquierdo MD [address] [place] [address] Social History Tobacco Use Types Packs/Day Years [...] Description 02/07/2025 9:25 AM EDT Office Visit [facility] [address] [place] [phone] Siomara Li MD [address] [place] [phone] Return in about 3 months (around 03/12/2025). 05/12/2025 12:45 PM EDT CPE - Comprehensive Physical Exam [facility] [address] [place] [address] Tiffanie Rebolledo NP [address] [facility] [place] [address] Last CPE: Not Found 06/11/2025 11:05 AM EDT Office Visit [facility] [address] [place] [address] Siomara Li MD [address] [place] [address] Keep this appt and Dr Britt can discuss at the January visit keep or move out documented as of this encounter Procedures * Due to [facility] law, this organization might not be sharing negative HIV tests. Procedure Name Priority Date/Time Associated Diagnosis Comments BASIC METABOLIC PANEL Routine 07/12/2006 Hyperlipidemia DM w/o Complication Type II documented in this encounter Results * Due to [facility] law, this organization might not be sharing negative HIV tests. * (ABNORMAL) BASIC METABOLIC PANEL (07/12/2006) CALCIUM 8.9 8.5 - 10.4 MG/DL [facility] (CLIA# [id number]) BUN 11 7 - 25 MG/DL [facility] (CLIA# [id number]) CREATININE 0.9 0.5 - 1.2 MG/DL [facility] (CLIA# [id number]) BUN/Creatinine Ratio 12 6 - 25 [facility] (CLIA# [id number]) Glucose 130(H) 65 - 99 MG/DL [facility] (CLIA# [id number]) SODIUM 140 135 - 146 MMOL/L [facility] (CLIA# [id number]) POTASSIUM 4.0 3.5 - 5.3 MMOL/L [facility] (CLIA# [id number]) CHLORIDE 105 98 - 110 MMOL/L [facility] (CLIA# [id number]) CARBON DIOXIDE 28 21 - 33 MMOL/L [facility] (CLIA# [id number]) 07/12/2006 07/12/2006 3:2 8 PM EDT Johnny Izquierdo MD LABORATORY Final Result [facility] (CLIA# [id number]) [address] [place] [address] documented in this encounter Visit Diagnoses Diagnosis Hyperlipidemia Other and unspecified hyperlipidemia Type II or unspecified type diabetes mellitus without mention of complication, not stated as uncontrolled documented in this encounter Additional Health Concerns Infection Onset Date Last Indicated Resolved Time COVID-19 Rule-Out 09/12/2020 09/12/2020 12/07/2020 8:13 PM EST documented as of this encounter Care Teams Puddler Pile Driving Relationship Specialty Start Date End Date Johnny Izquierdo MD [address] [place] [address] PCP - General 01/14/06 04/21/22 Johnny Frazier MD [address] [place] [address] PCP - General Family Medicine 04/22/22 documented as of this encounter
--- OUTSIDE RECORDS SUMMARY | 2025-01-21 18:21 | XMS_ITS | Encounter Summary ---
Author Organization [facility] Address [address] [place] [address] Care Team Providers Care Labor Mediator Name Role Phone Johnny Izquierdo MD Primary Care Provider [phone] Johnny Frazier MD Primary Care Provider [phone] Encounter Details Date Type Department Care Team (Late st Contact Info) Description 04/28/2015 Orders Only [facility] [address] [place] [phone] Arabella Solares PA Social History Tobacco Use [...] Description 02/07/2025 9:25 AM EDT Office Visit [facility] [address] [place] [phone] Siomara Li MD [address] [place] [address] Return in about 3 months (around 03/12/2025). 05/12/2025 12:45 PM EDT CPE - Comprehensive Physical Exam [facility] [address] [place] [address] Tiffanie Rebolledo NP [address] [place] [address] Last CPE: Not Found 06/11/2025 11:05 AM EDT Office Visit [facility] [address] [place] [address] Siomara Li MD [address] [place] [address] Keep this appt and Dr Balwinder fraser discuss at the January visit keep or [...] this encounter Procedures * Due to [place] [employer] law, this organization might not be sharing negative HIV tests. Procedure Name Priority Date/Time Associated Diagnosis Comments CULTURE,AEROBIC WOUND,SUPERFICIAL Routine 04/28/2015 11:43 AM EDT Labial abscess documented in this encounter Results * Due to [place] [employer] law, this organization might not be sharing negative HIV tests. * CULTURE, WOUND, SUPERFICIAL (04/28/2015 11:43 AM EDT) Bacteria culture SEE NOTE [facility] Comment: {CULTURE, AEROBIC BACTERIA {[id number]) ??CULTURE, AEROBIC BACTERIA ??MICRO NUMBER: ?[id number] ??TEST STATUS: ? FINAL ??SPECIMEN SOURCE: ?? NOT GIVEN ??SPECIMEN QUALITY: ??ADEQUATE ??RESULT: ?Growth of skin vicenta (note: Growth does not ? include S. aureus, beta-hemolytic Streptococci ? or P. aeruginosa). 04/28/2015 11:4 3 AM EDT 04/28/2015 9:31 PM EDT Narrative Resulting Agency Comment [id number] Arabella [facility] Final Result [facility] [address] [place] [address] documented in this encounter Visit Diagnoses Diagnosis Labial abscess Other abscess of vulva documented in this encounter Additional Health Concerns Infection Onset Date Last Indicated Resolved Time COVID-19 Rule-Out 09/12/2020 09/12/2020 12/07/2020 8:13 PM EST documented as of this encounter Care Teams Labor Mediator Relationship Specialty Start Date End Date Johnny Izquierdo MD [address] [place] [address] PCP - General 01/14/06 04/21/22 Johnny Frazier MD [address] [place] [address] PCP - General Family Medicine 04/22/22 documented as of this encounter
--- OUTSIDE RECORDS SUMMARY | 2025-01-21 18:21 | XMS_ITS | Encounter Summary ---
Author Organization [facility] Address [address] [place] [address] Care Team Providers Care Inspector Publications Name Role Phone Johnny Izquierdo MD Primary Care Provider [phone] Johnny Frazier MD Primary Care Provider [phone] Encounter Details Date Type Department Care Team (Late st Contact Info) Description 01/17/2012 Orders Only [facility] [address] [place] [phone] Shamika Reed LVN LPN Social History Tobacco Use Types Packs/Day Years [...] Description 02/07/2025 9:25 AM EDT Office Visit [facility] [address] [place] [phone] Siomara Li MD [address] [place] [address] Return in about 3 months (around 03/12/2025). 05/12/2025 12:45 PM EDT CPE - Comprehensive Physical Exam [facility] [address] [place] [address] Tiffanie Rebolledo, LEAD SECTION SUPERVISOR [address] [place] [address] Last CPE: Not Found 06/11/2025 11:05 AM EDT Office Visit [facility] [address] [place] [address] Siomara Li MD [address] [place] [address] Keep this appt and Dr Britt can discuss at the January visit keep or move out documented as of this encounter Visit Diagnoses Not on filedocumented in this encounter Additional Health Concerns Infection Onset Date Last Indicated Resolved Time COVID-19 Rule-Out 09/12/2020 09/12/2020 12/07/2020 8:13 PM EST documented as of this encounter Care Teams Inspector Publications Relationship Specialty Start Date End Date Johnny Izquierdo MD [address] [facility] [place] [address] PCP - General 01/14/06 04/21/22 Johnny Frazier MD [address] [place] [address] PCP - General Family Medicine 04/22/22 documented as of this encounter
--- OUTSIDE RECORDS SUMMARY | 2025-01-21 18:21 | XMS_ITS | Encounter Summary ---
Author Organization [facility] Address [address] [place] [address] Care Team Providers Care Boatbuilder Supervisor Name Role Phone Johnny Izquierdo MD Primary Care Provider [phone] Johnny Frazier MD Primary Care Provider [phone] Encounter Details Date Type Department Care Team (Late st Contact Info) Description 10/12/2017 Orders Only [facility] [address] [place] [phone] Johnny Izquierdo MD [address] [place], [place] [phone] Social History Tobacco Use Types Packs/Day Years [...] encounter Progress Notes * Katy Antoine - 10/13/2017 10:28 AM EST The patients lab results are at a normal/stable level by the protocol guidelines. The result letterwas completed and sent to patient. documented in this encounter Plan of Treatment Upcoming Encounters Date Type Department Care Team (Latest Contact Info) Description 02/07/2025 9:25 AM EDT Office Visit [facility] [address] [place] [address] Siomara Li MD [address] [place] [address] Return in about 3 months (around 03/12/2025). 05/12/2025 12:45 PM EDT CPE - Comprehensive Physical Exam [facility] [address] [place] [address] Tiffanie Rebolledo, SOPHIE [address] [place] [address] Last CPE: Not Found 06/11/2025 11:05 AM EDT Office Visit [facility] [address] [place] [address] Siomara Li MD [address] [place] [address] Keep this appt and Dr Britt can [...] Associated Diagnosis Comments THYROID CASCADING REFLEX Routine 10/12/2017 10:50 AM EST Hypothyroidism (acquired) HEMOGLOBIN A1C Routine 10/12/2017 10:50 AM EST Controlled type 2 diabetes mellitus without complication, with long-term current use of insulin FOLATE, SERUM Routine 10/12/2017 10:50 AM EST Memory loss VITAMIN B12 (CYANOCOBALAMIN), SERUM Routine 10/12/2017 10:50 AM EST Memory loss BASIC METABOLIC PANEL WITH (GFR) Routine 10/12/2017 10:50 AM EST Controlled type 2 diabetes mellitus without complication, with long-term current use of insulin documented in this encounter Results * Due to [place] state law, this organization might not be sharing negative HIV tests. * FOLATE, SERUM (10/12/2017 10:50 AM EST) Folate 9.5 ng/mL [facility] Comment: ? Reference Range ? Low: ? <3.4 ? Borderline: ?3.4-5.4 ? Normal: ?>5.4 10/12/2017 10:5 0 AM EST 10/12/2017 2:53 PM EST Narrative Resulting Agency Comment [id number] Johnny Izquierdo MD LABORATORY Final Result [facility] [address] [place] [address] * VITAMIN B12 (CYANOCOBALAMIN), SERUM (10/12/2017 10:50 AM EST) Vitamin B12 (Cobalamins) 526 200 - 1100 pg/mL [facility] 10/12/2017 10:5 0 AM EST 10/12/2017 2:53 PM EST Narrative Resulting Agency Comment [id number] Johnny Izquierdo MD LABORATORY Final Result Performing Organization Address City/[facility]/ZIP Co de Phone Number [facility] [address] [place] [address] * THYROID CASCADING REFLEX (10/12/2017 10:50 AM EST) TSH 1.74 0.40 - 4.50 mIU/L [facility] 10/12/2017 10:5 0 AM EST 10/12/2017 2:53 PM EST Narrative Resulting Agency Comment [id number] Johnny Izquierdo MD LABORATORY Final Result Performing Organization Address [facility] de Phone Number [facility] [address] [place] [address] * BASIC METABOLIC PANEL WITH (GFR) (10/12/2017 10:50 AM EST) Glucose 96 65 - 99 mg/dL [facility] Comment:Fasting reference in terval Urea Nitrogen Blood (BUN) 16 7 - 25 mg/dL [facility] Creatinine 0.86 0.50 - 0.99 mg/dL [facility] Comment: For patients >49 years of age, the reference limit for Creatinine is approximately 13% higher for people identified as -[place]. GFR 70 > OR = 60 mL/min/1 .73m2 [facility] GFR () 82 > OR = 60 mL/min/1 .73m2 [facility] BUN/Creatinine Ratio NOT APPLICABLE 6 - 22 (calc) [facility] Sodium 142 135 - 146 mmol/L [facility] Potassium 4.7 3.5 - 5.3 mmol/L [facility] Chloride 105 98 - 110 mmol/L [facility] Carbon dioxide 27 20 - 31 mmol/L [facility] Calcium 9.6 8.6 - 10.4 mg/dL [facility] 10/12/2017 10:5 0 AM EST 10/12/2017 2:53 PM EST Narrative [facility] - 10/12/2017 6:08 PM EST Please note that this estimated [...] needs for GFR calculation. Resulting Agency Comment [id number] Johnny Izquierdo MD LABORATORY Final Result Performing Organization Address [facility] de Phone Number [facility] [address] [place] [address] * HEMOGLOBIN A1C (10/12/2017 10:50 AM EST) Hemoglobin A1C 5.5 <5.7 % of total Hgb [facility] Comment: For the purpose of screening for the presence of diabetes: <5.7% ? Consistent with the absence of diabetes 5.7-6.4% ?Consistent with increased risk for diabetes ?(prediabetes) > or =6.5% ??Consistent with diabetes This assay result is consistent with a decreased risk of diabetes. Currently, no consensus exists regarding use of hemoglobin A1c for diagnosis of diabetes in children. According to [place] Diabetes Association (ADA) guidelines, hemoglobin A1c <7.0% represents optimal control in non- diabetic patients. Different metrics may apply to specific patient populations. Standards of Medical Care in Diabetes(ADA). Estimated Average Glucose 119 mg/dL (calc) [facility] 10/12/2017 10:5 0 AM EST 10/12/2017 2:53 PM EST Narrative Resulting Agency Comment [id number] Johnny Izquierdo MD LABORATORY Final Result Performing Organization Address [facility] de Phone Number [facility] [address] [place] [address] documented in this encounter Visit Diagnoses Diagnosis Controlled type 2 diabetes mellitus without complication, with long-term current use of insulin (HCC) Hypothyroidism (acquired) Unspecified hypothyroidism Memory loss documented in this encounter Additional Health Concerns Infection Onset Date Last Indicated Resolved Time COVID-19 Rule-Out 09/12/2020 09/12/2020 12/07/2020 8:13 PM EST documented as of this encounter Care Teams Boatbuilder Supervisor Relationship Specialty Start Date End Date Johnny Izquierdo MD [address] [facility] [place] [address] PCP - General 01/14/06 04/21/22 Johnny Frazier MD [address] [facility] [place] [address] PCP - General Family Medicine 04/22/22 documented as of this encounter
--- OUTSIDE RECORDS SUMMARY | 2025-01-21 18:21 | XMS_ITS | Encounter Summary ---
Author Organization [facility] Address [address] [place] [address] Care Team Providers Care Block Mechanic Name Role Phone Johnny Frazier MD Primary Care Provider [phone] Encounter Details Date Type Department Care Team (Late st Contact Info) Description 08/24/2022 Orders Only [facility] [address] [place] [phone] Johnny Frazier MD [address] [place] [address] Social History Tobacco Use Types Packs/Day Years [...] Encounter Note - Johnny Frazier MD - 08/24/2022 3:17 PM EDT Please let the patient know I sent in antibiotics for a probable enterococcal UTI. [facility] in [place]. Also sending a letter discussing the rest of her results. documented in this encounter Plan of Treatment Upcoming Encounters Date Type Department Care Team (Latest Contact Info) Description 02/07/2025 9:25 AM EDT Office Visit [facility] [address] [place] [phone] Siomara Li MD [address] [place] [address] Return in about 3 months (around 03/12/2025). 05/12/2025 12:45 PM EDT CPE - Comprehensive Physical Exam [address] [phone] Tiffanie Rebolledo, LINE TESTER [address] [place] [address] Last CPE: Not Found 06/11/2025 11:05 AM EDT Office Visit [facility] [address] [place] [phone] Siomara Li MD [address] [place] [address] Keep this appt and Dr Britt can [...] URINALYSIS DIP W/ REFLEX TO MICROSCOPIC+CULTURE Routine 08/24/2022 3:17 PM EDT Recurrent UTI CULTURE, URINE, ROUTINE Routine 08/24/2022 3:17 PM EDT CBC INCLUDES DIFFERENTIAL AND PLATELET COUNT Routine 08/24/2022 3:17 PM EDT Gastroesophageal reflux disease, unspecified whether esophagitis present MAGNESIUM, SERUM Routine 08/24/2022 3:17 PM EDT Gastroesophageal reflux disease, unspecified whether esophagitis present HEMOGLOBIN A1C Routine 08/24/2022 3:17 PM EDT Controlled type 2 diabetes mellitus with stage 1 chronic kidney disease, without long-term current use of insulin URINALYSIS, MICROSCOPIC Routine 08/24/2022 3:17 PM EDT LIPID PANEL WITH REFLEX TO DIRECT LDL Routine 08/24/2022 3:17 PM EDT Hyperlipidemia with target LDL less than 100 documented in this encounter Results * Due to [place] state law, this organization might not be sharing negative HIV tests. * (ABNORMAL) CULTURE, URINE, ROUTINE (08/24/2022 3:17 PM EDT) Bacteria culture (Urine) SEE NOTE(A) [facility] Comment: ??CULTURE, URINE, ROUTINE ??Micro Number: ?[id number] ??Test Status: ? Final ??Specimen Source: ?? [...] Not Reported ??NN = See Therapy Comments 08/24/2022 3:17 PM EDT 08/24/2022 11:59 PM EDT Johnny Frazier MD LABORATORY Final Result Performing Organization Address [facility] de Phone Number [facility] [address] [place] [address] * (ABNORMAL) URINALYSIS, MICROSCOPIC (08/24/2022 3:17 PM EDT) WBC (Urine) 6-10(A) < OR = 5 /HPF [facility] RBC (Urine Sed) NONE SEEN < OR = 2 /HPF [facility] Epithelial cells.squamous (Urine sed) 0-5 < OR = 5 /HPF [facility] Bacteria (Urine) NONE SEEN NONE SEEN /HPF [facility] Hyaline casts (Urine sed) NONE SEEN NONE SEEN /LPF [facility] 08/24/2022 3:17 PM EDT 08/24/2022 11:59 PM EDT Johnny Frazier MD LAB SAME DAY RESULT Final Resu lt Performing Organization Address [facility] de Phone Number [facility] [address] [place] [address] * (ABNORMAL) URINALYSIS DIP W/ REFLEX TO MICROSCOPIC+CULTURE (08/24/2022 3:17 PM EDT) Color (Urine) YELLOW YELLOW [facility] Appearance (Urine) CLEAR CLEAR [facility] Specific gravity (Urine) 1.018 1.001 - 1.035 [facility] pH (Urine) 5.5 5.0 - 8.0 [facility] Glucose (Urine) NEGATIVE NEGATIVE [facility] Bilirubin (Urine) NEGATIVE NEGATIVE [facility] Ketones (Urine) NEGATIVE NEGATIVE [facility] Hemoglobin (Urine) NEGATIVE NEGATIVE [facility] Protein (Urine) NEGATIVE NEGATIVE [facility] Nitrite (Urine) NEGATIVE NEGATIVE [facility] Leukocyte esterase (Urine) 2+(A) NEGATIVE [facility] 08/24/2022 3:17 PM EDT 08/24/2022 11:59 PM EDT Narrative Resulting Agency Comment [id number] us Johnny Frazier MD LABORATORY Final Result [facility] [address] [place] [address] * (ABNORMAL) LIPID PANEL WITH REFLEX TO DIRECT LDL (08/24/2022 3:17 PM EDT) Cholesterol 185 <200 mg/dL [facility] HDL Cholesterol 27(L) > OR = 50 mg/dL [facility] Triglyceride 259(H) <150 mg/dL [facility] Comment: If a non-fasting specimen was collected, consider repeat triglyceride testing on a fasting specimen if clinically indicated. Deloris et al. J. of Clin. Lipidol. 2015;9:129-169. LDL Cholesterol 121(H) mg/dL (calc) [facility] Comment: Reference range: <100 Desirable range <100 mg/dL for primary prevention; ?? <70 mg/dL for patients with CHD or diabetic patients with > or = 2 CHD risk factors. LDL-C is now calculated using the Bobby-Maeve calculation, which is a validated novel method providing better accuracy than the Friedewald equation in the estimation of LDL-C. Bobby PATTEN et al. HECTOR. 2013;310(19): 8093-2386 (http://education.Oppten/faq/LHL679) CHOL/HDL Ratio 6.9(H) <5.0 (calc) [facility] Cholesterol Non-HDL 158(H) <130 mg/dL (calc) [facility] Comment: For patients with diabetes plus 1 major ASCVD risk factor, treating to a non-HDL-C goal of <100 mg/dL (LDL-C of <70 mg/dL) is considered a therapeutic option. 08/24/2022 3:17 PM EDT 08/24/2022 11:59 PM EDT Narrative Resulting Agency Comment [id number] us Johnny Frazier MD LABORATORY Final Result Performing Organization Address City/[facility]/ZIP Co de Phone Number [facility] [address] [place] [address] * MAGNESIUM, SERUM (08/24/2022 3:17 PM EDT) Magnesium 1.8 1.5 - 2.5 mg/dL [facility] 08/24/2022 3:17 PM EDT 08/24/2022 11:59 PM EDT Narrative Resulting Agency Comment [id number] Johnny Frazier MD LABORATORY Final Result Performing Organization Address [facility] de Phone Number [facility] [address] [place] [address] * (ABNORMAL) CBC INCLUDES DIFFERENTIAL AND PLATELET COUNT (08/24/2022 3:17 PM EDT) WBC 8.9 3.8 - 10.8 Thousand/u L [facility] RBC 4.72 3.80 - 5.10 Million/uL [facility] Hemoglobin 14.6 11.7 - 15.5 g/dL [facility] Hematocrit 43.0 35.0 - 45.0 % [facility] MCV 91.1 80.0 - 100.0 fL [facility] MCH 30.9 27.0 - 33.0 pg [facility] MCHC 34.0 32.0 - 36.0 g/dL [facility] RDW 12.4 11.0 - 15.0 % [facility] PLT 181 140 - 400 Thousand/u L [facility] MPV 13.0(H) 7.5 - 12.5 fL [facility] Neutrophils # 5687 1500 - 7800 cells/uL [facility] Lymphocytes # 2359 850 - 3900 cells/uL [facility] Monocytes # 650 200 - 950 cells/uL [facility] Eosinophils # 107 15 - 500 cells/uL [facility] Basophils # 98 0 - 200 cells/uL [facility] Neutrophils % 63.9 % [facility] Lymphocytes % 26.5 % [facility] Monocytes % 7.3 % [facility] Eosinophils % 1.2 % [facility] Basophils % 1.1 % [facility] 08/24/2022 3:17 PM EDT 08/24/2022 11:59 PM EDT Narrative Resulting Agency Comment [id number] Johnny Frazier MD LAB SAME DAY RESULT Final Resu lt Performing Organization Address [facility] de Phone Number [facility] [address] [place] [address] * (ABNORMAL) HEMOGLOBIN A1C (08/24/2022 3:17 PM EDT) Hemoglobin A1C 6.8(H) <5.7 % of total [...] Average Glucose 165 mg/dL (calc) [facility] 08/24/2022 3:17 PM EDT 08/24/2022 11:59 PM EDT Narrative Resulting Agency Comment [id number] Johnny Frazier MD LABORATORY Final Result Performing Organization Address [facility] de Phone Number [facility] [address] [place] [address] documented in this encounter Visit Diagnoses Diagnosis Controlled type 2 diabetes mellitus with stage 1 chronic kidney disease, without long-term current use of insulin (HCC) Gastroesophageal reflux disease, unspecified whether esophagitis present Hyperlipidemia with target LDL less than 100 Other and unspecified hyperlipidemia Recurrent UTI Urinary tract infection, site not specified documented in this encounter Care Teams Block Mechanic Relationship Specialty Start Date End Date Johnny Frazier MD [address] [place] [address] PCP - General Family Medicine 04/22/22 documented as of this encounter
--- OUTSIDE RECORDS SUMMARY | 2025-01-21 18:21 | XMS_ITS | Encounter Summary ---
Author Organization [facility] Address [address] [place] [address] Care Team Providers Care Candy Maker Helper Name Role Phone Johnny Izquierdo MD Primary Care Provider [phone] Johnny Frazier MD Primary Care Provider [phone] Encounter Details Date Type Department Care Team (Late st Contact Info) Description 12/26/2007 Orders Only [facility] [address] [place] [address] Lianna Meléndez, [facility] [address] [place], [place] [phone] Social History Tobacco Use Types Packs/Day Years [...] Description 02/07/2025 9:25 AM EDT Office Visit [facility] [address] [place] [phone] Siomara Li MD [address] [place] [address] Return in about 3 months (around 03/12/2025). 05/12/2025 12:45 PM EDT CPE - Comprehensive Physical Exam [facility] [address] [place] [phone] Tiffanie Rebolledo, STUMMEL SELECTOR [address] [place] [address] Last CPE: Not Found 06/11/2025 11:05 AM EDT Office Visit [facility] [address] [place] [phone] Siomara Li MD [address] [place] [address] Keep this appt and Dr Britt can discuss at the January visit keep or move out documented as of this encounter Procedures * Due to [place] law, this organization might not be sharing negative HIV tests. Procedure Name Priority Date/Time Associated Diagnosis Comments BASIC METABOLIC PANEL Routine 12/26/2007 Fatigue CBC 5 PART DIFF Routine 12/26/2007 Fatigue THYROID CASCADE Routine 12/26/2007 Fatigue T4, FREE THYROXINE Routine 12/26/2007 IRON/TIBC Routine 12/26/2007 Fatigue URINALYSIS,C&S IF INDICATED Routine 12/26/2007 Fatigue HEPATIC FUNCTION PANEL Routine 12/26/2007 Fatigue documented in this encounter Results * Due to [place] law, this organization might not be sharing negative HIV tests. * T4, FREE THYROXINE (12/26/2007) FT4 0.9 0.8 - 1.8 NG/DL [facility] (CLIA# [id number]) 12/26/2007 12/26/2007 4:0 6 PM EST us Lianna Meléndez [facility] Final Result [facility] (CLIA# [id number]) [address] [place] [address] * (ABNORMAL) URINALYSIS,C&S IF INDICATED (12/26/2007) COLOR (URINE) YELLOW YELLOW [facility] (CLIA# [id number]) APPEARANCE (URINE) CLOUDY(A) CLEAR [facility] (CLIA# [id number]) SPECIFIC GRAVITY 1.014 1.001 - 1.035 FC [facility] (CLIA# [id number]) PH (URINE) 5.5 5.0 - 8.0 [facility] (CLIA# [id number]) PROTEIN (URINE) NEG NEG [facility] (CLIA# [id number]) GLUCOSE (URINE) NEG NEG FC [facility] (CLIA# [id number]) Ketones (Urine) NEG NEG [facility] (CLIA# [id number]) BILIRUBIN (URINE) NEG NEG [facility] (CLIA# [id number]) BLOOD (URINE) NEG NEG [facility] (CLIA# [id number]) WBC (URINE) NEG NEG [facility] (CLIA# [id number]) NITRITE (URINE) NEG NEG [facility] (CLIA# [id number]) WBC (URINE) 0 0-4/HPF [facility] (CLIA# [id number]) RBC (Urine Sed) 0 0-3/HPF [facility] (CLIA# [id number]) EPITHELIAL CELLS.SQUAMOUS (URINE SED) 0 0-5/HPF [facility] (CLIA# [id number]) EPITHELIAL CELLS.TRANSITIO NAL (URINE SED) 0 0-5/HPF [facility] (CLIA# [id number]) EPITHELIAL CELLS.RENAL (URINE SED) 0 0-3/HPF [facility] (CLIA# [id number]) BACTERIA (URINE) NONE SEEN NONE SEEN [facility] (CLIA# [id number]) 12/26/2007 12/26/2007 4:0 6 PM EST Lianna Meléndez [facility] Final Result Performing Organization Address City/[facility]/ZIP Co de Phone Number [facility] (CLIA# [id number]) [address] [place] [address] * (ABNORMAL) THYROID CASCADE (12/26/2007) TSH, THYROTROPIN 6.07(H) 0.40 - 4.50 UIU/ML [facility] (CLIA# [id number]) 12/26/2007 12/26/2007 4:0 6 PM EST Lianna Meléndez [facility] Final Result Performing Organization Address [facility] Co de Phone Number [facility] (CLIA# [id number]) [address] [place] [address] * (ABNORMAL) IRON/TIBC (12/26/2007) IRON 61 35 - 175 UG/DL [facility] (CLIA# [id number]) TIBC (IRON BINDING CAPACITY) 528(H) 250 - 450 MCG/DL [facility] (CLIA# [id number]) IRON SATURATION % 12(L) 15 - 50 % [facility] (CLIA# [id number]) 12/26/2007 12/26/2007 4:0 6 PM EST Lianna Meléndez [facility] Final Result Performing Organization Address City/[facility] [address] [facility] Co de Phone Number [facility] (CLIA# [id number]) [address] [place] [address] * HEPATIC FUNCTION PANEL (12/26/2007) Total Protein 7.8 6.2 - 8.3 G/DL [facility] (CLIA# [id number]) ALBUMIN 4.4 3.5 - 4.9 G/DL [facility] (CLIA# [id number]) GLOBULIN 3.4 2.2 - 3.9 G/DL [facility] (CLIA# [id number]) ALBUMIN/GLOBULIN RATIO 1.3 1.0 - 2.1 [facility] (CLIA# [id number]) BILIRUBIN TOTAL 0.3 0.2 - 1.2 MG/DL [facility] (CLIA# [id number]) BILIRUBIN DIRECT 0.0 0 - 0.2 MG/DL [facility] (CLIA# [id number]) ALKALINE PHOSPHATASE 90 33 - 130 U/L [facility] (CLIA# [id number]) AST (SGOT) 19 10 - 35 U/L [facility] (CLIA# [id number]) ALT (SGPT) 15 6 - 40 U/L [facility] (CLIA# [id number]) 12/26/2007 12/26/2007 4:0 6 PM EST us Lianna Meléndez DNP LABORATORY Final Result [facility] (CLIA# [id number]) [address] [place] [address] * (ABNORMAL) CBC 5 PART DIFF (12/26/2007) WHITE BLOOD COUNT 7.5 3.8 - 10.8 THOUS/UL [facility] (CLIA# [id number]) RBC 4.26 3.80 - 5.10 MIL/UL [facility] (CLIA# [id number]) Hemoglobin 12.2 11.7 - 15.5 G/DL [facility] (CLIA# [id number]) HCT (HEMATOCRIT) 35.6 35.0 - 45.0 % [facility] (CLIA# [id number]) MCV 83.6 80.0 - 100.0 FL [facility] (CLIA# [id number]) MCH 28.6 27.0 - 33.0 PG [facility] (CLIA# [id number]) MCHC 34.2 32.0 - 36.0 G/DL [facility] (CLIA# [id number]) BAND % 0 0 - 5 % [facility] (CLIA# [id number]) NEUTROPHIL % 53 48 - 75 % [facility] (CLIA# [id number]) LYMPHOCYTE % 39 17 - 40 % [facility] (CLIA# [id number]) MONOCYTE % 6 0 - 14 % [facility] (CLIA# [id number]) EOSINOPHIL % 1 0 - 5 % [facility] (CLIA# [id number]) BASOPHIL % 1 0 - 3 % [facility] (CLIA# [id number]) ATYPICAL LYMPHOCYTE % 0 0 - 5 % [facility] (CLIA# [id number]) PLATELETS 209 140 - 400 THOUS/UL [facility] (CLIA# [id number]) BANDS # 0 0 - 750 CELLS/MCL [facility] (CLIA# [id number]) NEUTROPHILS # 3975 1500 - 7800 CELLS/MCL [facility] (CLIA# [id number]) LYMPHOCYTES # 2925 850 - 3900 CELLS/MCL [facility] (CLIA# [id number]) MONOCYTES # 450 200 - 950 CELLS/MCL [facility] (CLIA# [id number]) EOSINOPHILS # 75 15 - 550 CELLS/MCL [facility] (CLIA# [id number]) BASOPHILS # 75 0 - 200 CELLS/MCL [facility] (CLIA# [id number]) ATYPICAL LYMPHOCYTES # 0 0 - 200 CELLS/MCL [facility] (CLIA# [id number]) RDW 15.6(H) 11.0 - 15.0 % [facility] (CLIA# [id number]) MPV 12.4(H) 7.5 - 11.5 FL [facility] (CLIA# [id number]) 12/26/2007 12/26/2007 4:0 6 PM EST Lianna Meléndez DNP LAB SAME DAY RESULT Final Re sult Performing Organization Address [facility] Co de Phone Number [facility] (CLIA# [id number]) [address] [place] [address] * (ABNORMAL) BASIC METABOLIC PANEL (12/26/2007) CALCIUM 9.6 8.6 - 10.2 MG/DL [facility] (CLIA# [id number]) BUN 10 7 - 25 MG/DL [facility] (CLIA# [id number]) CREATININE 0.81 0.50-1.30/ 1.20 MG/DL [facility] (CLIA# [id number]) BUN/Creatinine Ratio 12 6 - 25 [facility] (CLIA# [id number]) Glucose 133(H) 65 - 99 MG/DL [facility] (CLIA# [id number]) SODIUM 139 135 - 146 MMOL/L [facility] (CLIA# [id number]) POTASSIUM 4.4 3.5 - 5.3 MMOL/L [facility] (CLIA# [id number]) CHLORIDE 103 98 - 110 MMOL/L [facility] (CLIA# [id number]) CARBON DIOXIDE 24 21 - 33 MMOL/L [facility] (CLIA# [id number]) 12/26/2007 12/26/2007 4:0 6 PM EST Lianna Meléndez DNP LAB SAME DAY RESULT Final Re sult Performing Organization Address City/[facility]/ZIP Co de Phone Number [facility] (CLIA# [id number]) [address] [place] [address] documented in this encounter Visit Diagnoses Diagnosis Fatigue Other malaise and fatigue documented in this encounter Additional Health Concerns Infection Onset Date Last Indicated Resolved Time COVID-19 Rule-Out 09/12/2020 09/12/2020 12/07/2020 8:13 PM EST documented as of this encounter Care Teams Candy Maker Helper Relationship Specialty Start Date End Date Johnny Izquierdo MD [address] [place] [address] PCP - General 01/14/06 04/21/22 Johnny Frazier MD [address] [place] [address] PCP - General Family Medicine 04/22/22 documented as of this encounter
--- OUTSIDE RECORDS SUMMARY | 2025-01-21 18:21 | XMS_ITS | Encounter Summary ---
Author Organization [facility] Address [address] [place] [address] Care Team Providers Care Home Care Assistant Name Role Phone Johnny Izquierdo MD Primary Care Provider [phone] Johnny Frazier MD Primary Care Provider [phone] Encounter Details Date Type Department Care Team (Late st Contact Info) Description 08/16/2012 Orders Only [facility] [address] [place] [phone] Johnny Izquierdo MD [address] [place], [place] [phone] Social History Tobacco Use Types Packs/Day Years [...] Progress Notes * Lianna Meléndez DNP - 08/20/2012 9:16 AM EDTQuick Note: Stable letter mailed * Lianna Meléndez DNP - 08/17/2012 8:19 AM EDTQuick Note: appt 09/17/12, labs pending as of 08/17/12 documented in this encounter Plan of Treatment Upcoming Encounters Date Type Department Care Team (Latest Contact Info) Description 02/07/2025 9:25 AM EDT Office Visit [facility] [address] [place] [address] Siomara Li MD [address] [place] [address] Return in about 3 months (around 03/12/2025). 05/12/2025 12:45 PM EDT CPE - Comprehensive Physical Exam [facility] [address] [place] [phone] Tiffanie Rebolledo, CAD MANAGER [address] [place] [address] Last CPE: Not Found 06/11/2025 11:05 AM EDT Office Visit [facility] [address] [place] [phone] Siomara Li MD [address] [place] [address] Keep this appt and Dr Britt can discuss at the Kelsi visit keep or move out documented as of this encounter Procedures * Due to [place] state law, this organization might not be sharing negative HIV tests. Procedure Name Priority Date/Time Associated Diagnosis Comments ASPARTATE AMINOTRANSFERASE (AST), SERUM Routine 08/16/2012 7:52 AM EDT Hyperlipidemia Diabetes mellitus HEMOGLOBIN A1C Routine 08/16/2012 7:52 AM EDT Diabetes mellitus ALBUMIN (MICROALBUMIN), RANDOM URINE, WITH CREATININE Routine 08/16/2012 7:52 AM EDT Diabetes mellitus LIPID PANEL WITH REFLEX TO DIRECT LDL Routine 08/16/2012 7:52 AM EDT Hyperlipidemia Diabetes mellitus BASIC METABOLIC PANEL WITH (GFR) Routine 08/16/2012 7:52 AM EDT HTN (hypertension), benign Diabetes mellitus documented in this encounter Results * Due to [place] state law, this organization might not be sharing negative HIV tests. * BASIC METABOLIC PANEL WITH (GFR) (08/16/2012 7:52 AM EDT) Glucose 76 65 - 99 mg/dL [facility] Comment: {GLUCOSE {[id number]) ? Fasting reference interval Urea Nitrogen Blood (BUN) 8 7 - 25 mg/dL [facility] Comment:{UREA NITROGEN (BUN) {[id number]) Creatinine 0.82 0.50 - 0.99 mg/dL [facility] Comment: {CREATININE {[id number]) For patients >49 years of age, the reference limit for Creatinine is approximately 13% higher for people identified as -Dutch. GFR 77 > OR = 60 mL/min/1 .73m2 [facility] Comment:{eGFR NON-AFR. AMERI CAN {[id number]) GFR () 90 > OR = 60 mL/min/1 .73m2 [facility] Comment:{eGFR AMERIC AN {[id number]) BUN/Creatinine Ratio NOT APPLICABLE 6 - 22 (calc) [facility] Comment:{BUN/CREATININE RATI O {[id number]) Sodium 138 135 - 146 mmol/L [facility] Comment:{SODIUM {[id number]) Potassium 3.9 3.5 - 5.3 mmol/L [facility] Comment:{POTASSIUM {[id number]) Chloride 102 98 - 110 mmol/L [facility] Comment:{CHLORIDE {[id number]) Carbon dioxide 27 21 - 33 mmol/L [facility] Comment:{CARBON DIOXIDE {[id number]) Calcium 9.0 8.6 - 10.4 mg/dL [facility] Comment:{CALCIUM {[id number]) 08/16/2012 7:52 AM EDT 08/16/2012 3:15 PM EDT Narrative [facility] - 08/16/2012 7:16 PM EDT Please note that this estimated [...] needs for GFR calculation. Resulting Agency Comment [id number] us Johnny Izquierdo MD LABORATORY Final Result Performing Organization Address City/State/[facility] Co de Phone Number [facility] [address] [place] [address] * ALBUMIN (MICROALBUMIN), RANDOM URINE, WITH CREATININE (08/16/2012 7:52 AM EDT) Creatinine (Urine) 74 20 - 320 mg/dL [facility] Comment:{CREATININE, RANDOM URINE {[id number]) Albumin (Urine) <0.2 mg/dL [facility] Comment: {MICROALBUMIN {[id number]) Reference Range Not established Albumin/Creatinine (Urine) NOTE <30 mcg/mg creat [facility] Comment: {MICROALBUMIN/CREATININE RATIO, RANDOM URINE {[id number]) The microalbumin value is less than 0.2 [...] patient to be within a diagnostic category. 08/16/2012 7:52 AM EDT 08/16/2012 3:15 PM EDT Narrative Resulting Agency Comment [id number] us Johnny Izquierdo MD LABORATORY Final Result [facility] [address] [place] [address] * ASPARTATE AMINOTRANSFERASE (AST), SERUM (08/16/2012 7:52 AM EDT) AST (SGOT) 16 10 - 35 U/L [facility] Comment:{AST {[id number]) 08/16/2012 7:52 AM EDT 08/16/2012 3:15 PM EDT Narrative Resulting Agency Comment [id number] us Johnny Izquierdo MD LAB SAME DAY RESULT Final Res ult Performing Organization Address [facility] Co de Phone Number [facility] [address] [place] [address] * (ABNORMAL) LIPID PANEL WITH REFLEX TO DIRECT LDL (08/16/2012 7:52 AM EDT) Cholesterol 167 125 - 200 mg/dL [facility] Comment:{CHOLESTEROL, TOTAL {[id number]) HDL Cholesterol 29(L) > OR = 46 mg/dL [facility] Comment:{HDL CHOLESTEROL {[id number]) Triglyceride 133 <150 mg/dL [facility] Comment:{TRIGLYCERIDES {[id number]) LDL Cholesterol 111 <130 mg/dL (calc) [facility] Comment: {LDL-CHOLESTEROL {[id number]) Desirable range <100 mg/dL for patients with CHD or diabetes and <70 mg/dL for diabetic patients with known heart disease. CHOL/HDL Ratio 5.8(H) < OR = 5.0 (calc) [facility] Comment:{CHOL/HDLC RATIO {[id number]) Cholesterol Non-HDL 138 mg/dL (calc) [facility] Comment: {NON-HDL CHOLESTEROL {[id number]) Target for non-HDL cholesterol is 30 mg/dL higher than LDL cholesterol target. 08/16/2012 7:52 AM EDT 08/16/2012 3:15 PM EDT Narrative Resulting Agency Comment [id number] us Johnny Izquierdo MD LABORATORY Final Result Performing Organization Address [facility] Co de Phone Number [facility] [address] [place] [address] * (ABNORMAL) HEMOGLOBIN A1C (08/16/2012 7:52 AM EDT) Hemoglobin A1C 5.7(H) <5.7 % of total Hgb [facility] Comment: {HEMOGLOBIN A1c {[id number]) ?Increased risk of diabetes ? <5.7 ? Decreased risk of diabetes ? 5.7-6.0 ?Increased risk of diabetes ? 6.1-6.4 ?Higher risk of diabetes ? > or = 6.5 Consistent with diabetes ?Standards of Medical Care in Diabetes-2010. ?Diabetes Care, 33(Supp 1): S1-S61,2010. Estimated Average Glucose 126 mg/dL (calc) [facility] Comment:{MEAN PLASMA GLUCOSE {[id number]) 08/16/2012 7:52 AM EDT 08/16/2012 3:15 PM EDT Narrative Resulting Agency Comment [id number] Johnny Izquierdo MD LABORATORY Final Result Performing Organization Address [facility]/ZIP Co de Phone Number [facility] [address] [place] [address] documented in this encounter Visit Diagnoses Diagnosis Diabetes mellitus (HCC) Type II or unspecified type diabetes mellitus without mention of complication, not stated as uncontrolled Hyperlipidemia Other and unspecified hyperlipidemia HTN (hypertension), benign Essential hypertension, benign documented in this encounter Additional Health Concerns Infection Onset Date Last Indicated Resolved Time COVID-19 Rule-Out 09/12/2020 09/12/2020 12/07/2020 8:13 PM EST documented as of this encounter Care Teams Home Care Assistant Relationship Specialty Start Date End Date Johnny Izquierdo MD [address] [place] [address] PCP - General 01/14/06 04/21/22 Johnny Frazier MD [address] [place] [address] PCP - General Family Medicine 04/22/22 documented as of this encounter
--- OUTSIDE RECORDS SUMMARY | 2025-01-21 18:21 | XMS_ITS | Encounter Summary ---
Author Organization [facility] Address [address] [place] [address] Care Team Providers Care Financial Institution Vice President Name Role Phone Johnny Izquierdo MD Primary Care Provider [phone] Johnny Frazier MD Primary Care Provider [phone] Encounter Details Date Type Department Care Team (Late st Contact Info) Description 07/27/2012 Orders Only [facility] [address] [place] [phone] Jose Sharpe MD [address], [place] [id number] Social History Tobacco Use Types Packs/Day Years [...] 02/07/2025 9:25 AM EDT Office Visit [facility] [address] [place] [phone] Siomara Li MD [address], [place] [address] Return in about 3 months (around 03/12/2025). 05/12/2025 12:45 PM EDT CPE - Comprehensive Physical Exam [facility] [address] [place] [phone] Tiffanie Rebolledo NP [address] [place] [address] Last CPE: Not Found 06/11/2025 11:05 AM EDT Office Visit [facility] [address] [place] [phone] Siomara Li MD [address] [place] [address] Keep this appt and Dr Britt can discuss at the January visit keep or move out documented as of this encounter Procedures * Due to [email or web address] law, this organization might not be sharing negative HIV tests. Procedure Name Priority Date/Time Associated Diagnosis Comments BV/VAGINITIS PANELDNA PROBE(AFFIRM) Routine 07/27/2012 4:04 PM EDT Urgency-frequency syndrome CULTURE, URINE, ROUTINE Routine 07/27/2012 4:04 PM EDT Urgency-frequency syndrome URINALYSIS, COMPLETE INCLUDES DIPSTICK AND MICROSCOPIC Routine 07/27/2012 4:04 PM EDT Urgency-frequency syndrome CYTOLOGY, NON-TRANSMISSION SYSTEMS OPERATOR Routine 07/27/2012 1:3 0 PM EDT documented in this encounter Results * Due to [email or web address] law, this organization might not be sharing negative HIV tests. * BV/VAGINITIS PANELDNA PROBE (07/27/2012 4:04 PM EDT) Trichomonas vaginalis rRNA (Genital) NOT DETECTED NOT DETECTED [facility] Comment:{TRICHOMONAS: {[id number]) Gardnerella vaginalis rRNA (Genital) NOT DETECTED NOT DETECTED [facility] Comment:{GARDNERELLA: {[id number]) Adela sp rRNA (Vag) NOT DETECTED NOT DETECTED [facility] Comment:{ADELA: {[id number]) 07/27/2012 4:04 PM EDT 07/27/2012 10:54 PM EDT Narrative Resulting Agency Comment [id number] Jose Sharpe MD LABORATORY Final Result [facility] [address] [place] [address] * URINALYSIS, COMPLETE INCLUDES DIPSTICK AND MICROSCOPIC (07/27/2012 4:04 PM EDT) Color (Urine) YELLOW YELLOW [facility] Comment:{COLOR {[id number]) Appearance (Urine) CLEAR CLEAR [facility] Comment:{APPEARANCE {[id number]) Specific gravity (Urine) 1.007 1.001 - 1.035 [facility] Comment:{SPECIFIC GRAVITY {[id number]) pH (Urine) 5.5 5.0 - 8.0 [facility] Comment:{PH {[id number]) Glucose (Urine) NEGATIVE NEGATIVE [facility] Comment:{GLUCOSE {[id number]) Bilirubin (Urine) NEGATIVE NEGATIVE [facility] Comment:{BILIRUBIN {[id number]) Ketones (Urine) NEGATIVE NEGATIVE [facility] Comment:{KETONES {[id number]) Hemoglobin (Urine) NEGATIVE NEGATIVE [facility] Comment:{OCCULT BLOOD {[id number]) Protein (Urine) NEGATIVE NEGATIVE [facility] Comment:{PROTEIN {[id number]) Nitrite (Urine) NEGATIVE NEGATIVE [facility] Comment:{NITRITE {[id number]) Leukocyte esterase (Urine) NEGATIVE NEGATIVE [facility] Comment:{LEUKOCYTE ESTERASE {[id number]) WBC (Urine) NONE SEEN < OR = 5 /HPF [facility] Comment:{WBC {[id number]) RBC (Urine Sed) NONE SEEN < OR = 3 /HPF [facility] Comment:{RBC {[id number]) Epithelial cells.squamous (Urine sed) NONE SEEN < OR = 5 /HPF [facility] Comment:{SQUAMOUS EPITHELIAL CELLS {[id number]) Bacteria (Urine) NONE SEEN NONE SEEN /HPF [facility] Comment:{BACTERIA {[id number]) Hyaline casts (Urine sed) NONE SEEN NONE SEEN /LPF [facility] Comment:{HYALINE CAST {[id number]) 07/27/2012 4:04 PM EDT 07/27/2012 10:54 PM EDT Narrative Resulting Agency Comment [id number] Jose Sharpe MD LAB SAME DAY RESULT Final Result Performing Organization Address [facility] Co de Phone Number [facility] [address] [place] [address] * CULTURE, URINE, ROUTINE (07/27/2012 4:04 PM EDT) Bacteria culture (Urine) SEE NOTE [facility] Comment: {CULTURE, URINE, ROUTINE {[id number]) ??CULTURE, URINE, ROUTINE ??MICRO NUMBER: ?[id number] ??TEST STATUS: ? FINAL ??SPECIMEN SOURCE: ?? URINE ??SPECIMEN QUALITY: ??ADEQUATE ??RESULT: ?No Growth 07/27/2012 4:04 PM EDT 07/27/2012 10:54 PM EDT Narrative Resulting Agency Comment [id number] Jose Sharpe MD LABORATORY Final Result Performing Organization Address [facility] Co de Phone Number [facility] [address] [place] [address] * CYTOLOGY, NON-TRANSMISSION SYSTEMS OPERATOR (07/27/2012 1:30 PM EDT) Clinical information Not given [facility] Comment:{CLINICAL INFORMATIO N {[id number]) Screener DMM, CT(ASCP) [facility] Comment:{SCREENER {[id number]) Pathologist Name Davi Ortega M.D. Direct , Board Certified in Anatomic and Clinical Pathology and Cytopathology (electronic signature) [facility] Comment:{PATHOLOGIST {[id number]) Specimen source VOIDED URINE [facility] Comment:{A SOURCE {[id number]) Procedure cytology [facility] Comment:{A PROCEDURE {[id number]) Gross Observation SEE NOTE [facility] Comment: {A GROSS DESCRIPTION {[id number]) The name on the container is in agreement with the requisition. 50 mL of clear light yellow fluid, received in an unknown fixative and processed by the Thinprep method. (SP) requisition. ??50 mL of clear light yellow fluid, received in an unknown fixative and processed by the Thinprep method. ??(SP) ??Gross exam(s) performed at: [facility] ??[address] [place] [address] ??Associate Professor Of Economics: LAWRENCE GUEVARA MD FINAL DIAGNOSIS NO MALIGNANT CELLS ARE IDENTIFIED Squamous and urothelial cells and red blood cells. Predominantly squamous cells with few urothelial cells. [facility] Comment:{A DIAGNOSIS {[id number]) 07/27/2012 1:30 PM EDT 07/30/2012 2:12 AM EDT us Jose Sharpe MD PATHOLOGY-INTERFACED Final Resul t Performing Organization Address City/State/[facility] Co de Phone Number [facility] [address] [place] [address] documented in this encounter Visit Diagnoses Diagnosis Urgency-frequency syndrome Hypertonicity of bladder documented in this encounter Additional Health Concerns Infection Onset Date Last Indicated Resolved Time COVID-19 Rule-Out 09/12/2020 09/12/2020 12/07/2020 8:13 PM EST documented as of this encounter Care Teams Financial Institution Vice President Relationship Specialty Start Date End Date Johnny Izquierdo MD [address] [place] [address] PCP - General 01/14/06 04/21/22 Johnny Frazier MD [address] [place] [address] PCP - General Family Medicine 04/22/22 documented as of this encounter
--- OUTSIDE RECORDS SUMMARY | 2025-01-21 18:21 | XMS_ITS | Encounter Summary ---
Author Organization [facility] Address [address] [place] [address] Care Team Providers Care Bale Piler Name Role Phone Johnny Izquierdo MD Primary Care Provider [phone] Johnny Frazier MD Primary Care Provider [phone] Encounter Details Date Type Department Care Team (Late st Contact Info) Description 02/15/2007 Orders Only [facility] [address] [place] [phone] Johnny Izquierdo MD [address] [place] [address] Social History Tobacco Use Types Packs/Day Years Used Date Smoking Tobacco: Every Day Comments Unknown Sex and Gender Information Value Date Recorded Sex Assigned at Not on file Legal Sex Female 6:50 PM EDT Gender Identity Not on file Sexual Orientation Not on file documented as of this encounter Progress Notes * Johnny Izquierdo MD - 02/22/2007 4:55 PM EDTQuick Note: Reviewed at ov documented in this encounter Plan of Treatment Upcoming Encounters Date Type Department Care Team (Latest Contact Info) Description 02/07/2025 9:25 AM EDT Office Visit [facility] [address] [place] [phone] Siomara Li MD [address] [place] [address] Return in about 3 months (around 03/12/2025). 05/12/2025 12:45 PM EDT CPE - Comprehensive Physical Exam [facility] [address] [place] [address] Tiffanie Rebolledo, STORE CONSULTANT [address] [place] [address] Last CPE: Not Found 06/11/2025 11:05 AM EDT Office Visit [facility] [address] [place] [phone] Siomara Li MD [address] [place] [address] Keep this appt and Dr Britt can discuss at the Kelsi visit keep or move out documented as of this encounter Procedures * Due to [place] state law, this organization might not be sharing negative HIV tests. Procedure Name Priority Date/Time Associated Diagnosis Comments US ABDOMEN, LIMITED,F/U LIVER Routine 02/15/2007 10:55 AM EDT BASIC METABOLIC PANEL Routine 02/15/2007 OTHER AND UNSPECIFIED HYPERLIPIDEMIA MICROALBUMIN (RANDOM URINE) Routine 02/15/2007 OTHER AND UNSPECIFIED HYPERLIPIDEMIA CBC 5 PART DIFF Routine 02/15/2007 OTHER AND UNSPECIFIED HYPERLIPIDEMIA ALANINE AMINOTRANSFERASE (ALT), SERUM Routine 02/15/2007 OTHER AND UNSPECIFIED HYPERLIPIDEMIA ASPARTATE AMINOTRANSFERASE (AST), SERUM Routine 02/15/2007 OTHER AND UNSPECIFIED HYPERLIPIDEMIA TSH, THYROTROPIN Routine 02/15/2007 OTHER AND UNSPECIFIED HYPERLIPIDEMIA HEMOGLOBIN A1C Routine 02/15/2007 OTHER AND UNSPECIFIED HYPERLIPIDEMIA URINALYSIS, DIPSTICK WITH REFLEX MICROSCOPIC Routine 02/15/2007 OTHER AND UNSPECIFIED HYPERLIPIDEMIA URINALYSIS, COMPLETE (DIP & MICRO) Routine 02/15/2007 CARDIAC RISK/LIPID PROFILE I Routine 02/15/2007 OTHER AND UNSPECIFIED HYPERLIPIDEMIA documented in this encounter Results * Due to [place] state law, this organization might not be sharing negative HIV tests. * US ABDOMEN, LIMITED,F/U LIVER (02/15/2007 10:55 AM EDT) RADIOLOGY REPORT Ultrasound of liver: Diffuse increase in hepatic echogenicity without evidence of focal defects is a finding most often related to fatty infiltration. Correlate clinically. There is no evidence of intra or extrahepatic biliary ductal distention. Common duct is normal at 3.7 mm. Gallbladder is well visualized and unremarkable in appearance. The head and body of the pancreas are unremarkable. Pancreatic tail is obscured by abdominal gas. Right kidney is unremarkable. Impression: Generalized increase in hepatic echogenicity without focal defect is a finding often related to fatty infiltration. Correlate clinically. [facility] (CLIA# [id number]) Anatomical Region Laterality Modality Other 02/15/2007 10:5 5 AM EDT Narrative 02/15/2007 11:24 AM EDT Reason for Study/History: liver us elevatred lft's TEST(S) PROCESSED BY [facility] AT [facility] us Johnny Izquierdo MD GENERAL IMAGING- OTHER Final Result * (ABNORMAL) URINALYSIS, COMPLETE (DIP & MICRO) (02/15/2007) COLOR (URINE) YELLOW YELLOW [facility] (CLIA# [id number]) APPEARANCE (URINE) TURBID(A) CLEAR [facility] (CLIA# [id number]) SPECIFIC GRAVITY 1.018 1.001 - 1.035 [facility] (CLIA# [id number]) PH (URINE) 5.5 5.0 - 8.0 [facility] (CLIA# [id number]) PROTEIN (URINE) NEG NEG [facility] (CLIA# [id number]) GLUCOSE (URINE) NEG NEG [facility] (CLIA# [id number]) Ketones (Urine) NEG NEG [facility] (CLIA# [id number]) BILIRUBIN (URINE) NEG NEG [facility] (CLIA# [id number]) BLOOD (URINE) NEG NEG [facility] (CLIA# [id number]) WBC (URINE) TRACE(A) NEG [facility] (CLIA# [id number]) NITRITE (URINE) NEG NEG [facility] (CLIA# [id number]) WBC (URINE) 0-4 0-4/HPF [facility] (CLIA# [id number]) RBC (Urine Sed) 0-3 0-3/HPF [facility] (CLIA# [id number]) EPITHELIAL CELLS.SQUAMOUS (URINE SED) 10-20(A) 0-5/HPF [facility] (CLIA# [id number]) EPITHELIAL CELLS.TRANSITI ONAL (URINE SED) 0-5 0-5/HPF [facility] (CLIA# [id number]) EPITHELIAL CELLS.RENAL (URINE SED) 0 0-3/HPF [facility] (CLIA# [id number]) BACTERIA (URINE) FEW(A) NONE SEEN [facility] (CLIA# [id number]) URINE CRYSTALS FEW AMORPHOUS F C [facility] (CLIA# [id number]) 02/15/2007 02/15/2007 8:1 1 PM EDT us Johnny Izquierdo MD LAB SAME DAY RESULT Final Res ult [facility] (CLIA# [id number]) [address] [place] [address] * (ABNORMAL) MICROALBUMIN (RANDOM URINE) (02/15/2007) CREATININE (URINE) 136 20 - 320 MG/DL [facility] (CLIA# [id number]) Microalbumin (Urine) 34(H) 0 - 29 UG/ML [facility] (CLIA# [id number]) MICROALBUMIN/CREA T RATIO (URINE) 25 0 - 29 [facility] (CLIA# [id number]) Comment:UNITS: UG/MG CREATIN INE 02/15/2007 02/15/2007 8:1 1 PM EDT Johnny Izquierdo MD LABORATORY Final Result Performing Organization Address City/[facility]/ZIP Co de Phone Number [facility] (CLIA# [id number]) [address] [place] [address] * (ABNORMAL) HEMOGLOBIN A1C (02/15/2007) Hemoglobin A1C 9.0(H) 0.0 - 5.9 % [facility] (CLIA# [id number]) Comment: WELL-CONTROLLED OR NON-DIABETIC: < 6.0% DIABETIC HEMOGLOBIN A1C: THERAPEUTIC GOAL: < 7% RE-EVALUATE THERAPY: > 8% GLUCOSE MEAN VALUE 243 MG/DL [facility] (CLIA# [id number]) 02/15/2007 02/15/2007 8:1 1 PM EDT Johnny Izquierdo MD LABORATORY Final Result Performing Organization Address [facility] Co de Phone Number [facility] (CLIA# [id number]) [address] [place] [address] * (ABNORMAL) TSH, THYROTROPIN (02/15/2007) TSH, THYROTROPIN 5.8(H) 0.3 - 5.5 UIU/ML [facility] (CLIA# [id number]) 02/15/2007 02/15/2007 8:1 1 PM EDT Johnny Izquierdo MD LABORATORY Final Result Performing Organization Address City/[facility]/ZIP Co de Phone Number [facility] (CLIA# [id number]) [address] [place] [address] * (ABNORMAL) ASPARTATE AMINOTRANSFERASE (AST), SERUM (02/15/2007) AST (SGOT) 93(H) 10 - 35 U/L [facility] (CLIA# [id number]) 02/15/2007 02/15/2007 8:1 1 PM EDT us Johnny Izquierdo MD LAB SAME DAY RESULT Final Res ult Performing Organization Address [facility]/ZIP Co de Phone Number [facility] (CLIA# [id number]) [address] [place] [address] * (ABNORMAL) ALANINE AMINOTRANSFERASE (ALT), SERUM (02/15/2007) ALT (SGPT) 79(H) 6 - 40 U/L [facility] (CLIA# [id number]) 02/15/2007 02/15/2007 8:1 1 PM EDT us Johnny Izquierdo MD LAB SAME DAY RESULT Final Res ult Performing Organization Address [facility] Co de Phone Number [facility] (CLIA# [id number]) [address] [place] [address] * (ABNORMAL) CARDIAC RISK/LIPID PROFILE I (02/15/2007) CHOLESTEROL, TOTAL 196 125 - 200 MG/DL [facility] (CLIA# [id number]) TRIGLYCERIDES 173(H) 30 - 149 MG/DL [facility] (CLIA# [id number]) HDL-CHOLESTEROL 25(L) 40 - 77 MG/DL [facility] (CLIA# [id number]) LDL-CHOLESTEROL 136(H) 62 - 130 MG/DL [facility] (CLIA# [id number]) Comment: RISK CATEGORY: ??LDL-CHOLESTEROL GOAL CHD AND CHD RISK EQUIVALENTS: ??<100 MULTIPLE (2+) FACTORS: ??<130 ZERO TO ONE RISK FACTOR: ??<160 CHD RELATIVE RISK RATIO (TOTAL/HDL) 7.84(H) 0.0 - 5.0 [facility] (CLIA# [id number]) Comment:(2.2 X AVERAGE) 02/15/2007 02/15/2007 8:1 1 PM EDT us Johnny Izquierdo MD LABORATORY Final Result [facility] (CLIA# [id number]) [address] [place] [address] * (ABNORMAL) CBC 5 PART DIFF (02/15/2007) WHITE BLOOD COUNT 6.8 3.8 - 10.8 1000/UL [facility] (CLIA# [id number]) RBC 4.40 3.80 - 5.10 MIL/UL [facility] (CLIA# [id number]) Hemoglobin 13.7 11.7 - 15.5 G/DL [facility] (CLIA# [id number]) HCT (HEMATOCRIT) 40 35 - 45 % [facility] (CLIA# [id number]) MCV 92 80 - 100 FL [facility] (CLIA# [id number]) MCH 31 27 - 33 PG [facility] (CLIA# [id number]) MCHC 34 32 - 36 G/DL [facility] (CLIA# [id number]) BAND % 0 0 - 5 % [facility] (CLIA# [id number]) NEUTROPHIL % 52 48 - 75 % [facility] (CLIA# [id number]) LYMPHOCYTE % 40 17 - 40 % [facility] (CLIA# [id number]) MONOCYTE % 6 0 - 14 % [facility] (CLIA# [id number]) EOSINOPHIL % 1 0 - 5 % [facility] (CLIA# [id number]) BASOPHIL % 1 0 - 3 % [facility] (CLIA# [id number]) ATYPICAL LYMPHOCYTE % 0 0 - 5 % [facility] (CLIA# [id number]) PLATELETS 158 140 - 400 THOU/UL [facility] (CLIA# [id number]) BANDS # 0 0 - 500 /UL [facility] (CLIA# [id number]) NEUTROPHILS # 3536 1500 - 7800 /UL [facility] (CLIA# [id number]) LYMPHOCYTES # 2720 850 - 3900 /UL [facility] (CLIA# [id number]) MONOCYTES # 408 200 - 950 /UL [facility] (CLIA# [id number]) EOSINOPHILS # 68 50 - 550 /UL [facility] (CLIA# [id number]) BASOPHILS # 68 0 - 200 /UL [facility] (CLIA# [id number]) ATYPICAL LYMPHOCYTES # 0 0 - 200 /UL [facility] (CLIA# [id number]) RDW 13.3 11.0 - 15.0 % [facility] (CLIA# [id number]) MPV 13.4(H) 7.5 - 11.5 FL [facility] (CLIA# [id number]) 02/15/2007 02/15/2007 8:1 1 PM EDT us Johnny Izquierdo MD LAB SAME DAY RESULT Final Res ult Performing Organization Address [facility] Co de Phone Number [facility] (CLIA# [id number]) [address] [place] [address] * URINALYSIS, DIPSTICK WITH REFLEX MICROSCOPIC (02/15/2007) 02/15/2007 02/15/2007 8:1 1 PM EDT us Johnny Izquierdo MD LAB SAME DAY RESULT Final Res ult Performing Organization Address City/[facility]/ZIP Co de Phone Number [facility] (CLIA# [id number]) [address] [place] [address] * (ABNORMAL) BASIC METABOLIC PANEL (02/15/2007) CALCIUM 9.0 8.6 - 10.2 MG/DL [facility] (CLIA# [id number]) BUN 9 7 - 25 MG/DL [facility] (CLIA# [id number]) CREATININE 0.7 0.5 - 1.2 MG/DL [facility] (CLIA# [id number]) BUN/Creatinine Ratio 13 6 - 25 [facility] (CLIA# [id number]) Glucose 176(H) 65 - 99 MG/DL [facility] (CLIA# [id number]) SODIUM 139 135 - 146 MMOL/L [facility] (CLIA# [id number]) POTASSIUM 4.5 3.5 - 5.3 MMOL/L [facility] (CLIA# [id number]) CHLORIDE 102 98 - 110 MMOL/L [facility] (CLIA# [id number]) CARBON DIOXIDE 23 21 - 33 MMOL/L [facility] (CLIA# [id number]) 02/15/2007 02/15/2007 8:1 1 PM EDT us Johnny Izquierdo MD LAB SAME DAY RESULT Final Res ult [facility] (CL[facility]# [id number]) [address] [place] [address] documented in this encounter Visit Diagnoses Diagnosis OTHER AND UNSPECIFIED HYPERLIPIDEMIA Other and unspecified hyperlipidemia documented in this encounter Additional Health Concerns Infection Onset Date Last Indicated Resolved Time COVID-19 Rule-Out 09/12/2020 09/12/2020 12/07/2020 8:13 PM EST documented as of this encounter Care Teams Bale Piler Relationship Specialty Start Date End Date Johnny Izquierdo MD [address] [place] [address] PCP - General 01/14/06 04/21/22 Johnny Frazier MD [address] [place] [address] PCP - General Family Medicine 04/22/22 documented as of this encounter
--- OUTSIDE RECORDS SUMMARY | 2025-01-21 18:21 | XMS_ITS | Encounter Summary ---
Author Organization [facility] Address [address] [place] [address] Care Team Providers Care Interior Decorator Name Role Phone Johnny Izquierdo MD Primary Care Provider [phone] Johnny Frazier MD Primary Care Provider [phone] Encounter Details Date Type Department Care Team (Late st Contact Info) Description 03/20/2020 Orders Only [facility] [address] [place] [phone] oJhnny Izquierdo MD [address] [place], [place] [phone] Social History Tobacco Use Types Packs/Day Years [...] have Coronavirus / COVID-19? No / Unsure 03/10/2020 10:49 AM EDT documented as of this encounter Progress Notes * Chasity Perera CMA - 03/20/2020 6:48 AM EDT Please review and advise. Pt does not have any upcoming appointments. No letter generated. documented in this encounter Plan of Treatment Upcoming Encounters Date Type Department Care Team (Latest Contact Info) Description 02/07/2025 9:25 AM EDT Office Visit [facility] [address] [place] [phone] Siomara Li MD [address] [place] [address] Return in about 3 months (around 03/12/2025). 05/12/2025 12:45 PM EDT CPE - Comprehensive Physical Exam [address] [address] Tiffanie Rebolledo, INSTRUCTIONAL TECHNOLOGIST [address] [place] [address] Last CPE: Not Found 06/11/2025 11:05 AM EDT Office Visit [facility] [address] [place] [phone] Siomara Li MD [address] [place] [address] Keep this appt and Dr Britt can [...] Priority Date/Time Associated Diagnosis Comments VENIPUNCTURE Routine 03/20/2020 6:48 AM EDT Hypothyroidism (acquired) HEMOGLOBIN A1C Routine 03/20/2020 6:48 AM EDT Controlled type 2 diabetes mellitus without complication, with long-term current use of insulin ALBUMIN (MICROALBUMIN), RANDOM URINE, WITH CREATININE Routine 03/20/2020 6:48 AM EDT Controlled type 2 diabetes mellitus without complication, with long-term current use of insulin LIPID PANEL WITH REFLEX TO DIRECT LDL Routine 03/20/2020 6:48 AM EDT Controlled type 2 diabetes mellitus without complication, with long-term current use of insulin BASIC METABOLIC PANEL WITH (GFR) Routine 03/20/2020 6:48 AM EDT Controlled type 2 diabetes mellitus without complication, with long-term current use of insulin documented in this encounter Results * Due to [place] state law, this organization might not be sharing negative HIV tests. * (ABNORMAL) HEMOGLOBIN A1C (03/20/2020 6:48 AM EDT) Hemoglobin A1C 8.6(H) <5.7 % of total Hgb [facility] [...] of diabetes for children. Estimated Average Glucose 229 mg/dL (calc) [facility] 03/20/2020 6:48 AM EDT 03/20/2020 1:10 PM EDT Narrative Resulting Agency Comment [id number] us Johnny Izquierdo MD LABORATORY Final Result [facility] [address] [place] [address] * (ABNORMAL) LIPID PANEL WITH REFLEX TO DIRECT LDL (03/20/2020 6:48 AM EDT) Cholesterol 160 <200 mg/dL [facility] HDL Cholesterol 28(L) > OR = 50 mg/dL [facility] Triglyceride 193(H) <150 mg/dL [facility] LDL Cholesterol 101(H) mg/dL (calc) [facility] Comment: Reference range: [...] LDL-C. Bobby SS et al. HECTOR. 2013;310(19): 8671-3653 (http://education.Zbird/faq/CUU344) CHOL/HDL Ratio 5.7(H) <5.0 (calc) [facility] Cholesterol Non-HDL 132(H) <130 mg/dL (calc) [facility] Comment: For patients with diabetes plus 1 major ASCVD risk factor, treating to a non-HDL-C goal of <100 mg/dL (LDL-C of <70 mg/dL) is considered a therapeutic option. 03/20/2020 6:48 AM EDT 03/20/2020 1:10 PM EDT Narrative Resulting Agency Comment [id number] Johnny Izquierdo MD LABORATORY Final Result Performing Organization Address City/State/[facility] de Phone Number [facility] [address] [place] [address] * ALBUMIN (MICROALBUMIN), RANDOM URINE, WITH CREATININE (03/20/2020 6:48 AM EDT) Creatinine (Urine) 42 20 - 275 mg/dL [facility] Albumin (Urine) 0.4 mg/dL [facility] Comment: Reference Range Not established Albumin/Creatinine (Urine) 10 <30 mcg/mg creat [facility] Comment: The ADA defines abnormalities in albumin excretion as follows: Category ? Result (mcg/mg creatinine) Normal ?<30 Microalbuminuria ? 30-299 Clinical albuminuria ?? > OR = 300 The ADA recommends that at least two of three specimens collected within a 3-6 month period be abnormal before considering a patient to be within a diagnostic category. 03/20/2020 6:48 AM EDT 03/20/2020 1:10 PM EDT Narrative Resulting Agency Comment [id number] Johnny Izquierdo MD LABORATORY Final Result [facility] [address] [place] [address] * (ABNORMAL) BASIC METABOLIC PANEL WITH (GFR) (03/20/2020 6:48 AM EDT) Pathologist [facility] Glucose 164(H) 65 - 99 mg/dL [facility] Comment: ? Fasting reference interval For someone without known diabetes, a glucose value >125 mg/dL indicates that they may have diabetes and this should be confirmed with a follow-up test. Urea Nitrogen Blood (BUN) 9 7 - 25 mg/dL [facility] Creatinine 0.88 0.50 - 0.99 mg/dL [facility] Comment: For patients >49 years of age, the reference limit for Creatinine is approximately 13% higher for people identified as -Tong[place]. EGFR 68 > OR = 60 mL/min/1 .73m2 [facility] GFR () 78 > OR = 60 mL/min/1 .73m2 [facility] BUN/Creatinine Ratio NOT APPLICABLE 6 - 22 (calc) [facility] Sodium 140 135 - 146 mmol/L [facility] Potassium 4.8 3.5 - 5.3 mmol/L [facility] Chloride 102 98 - 110 mmol/L [facility] Carbon dioxide 28 20 - 32 mmol/L [facility] Calcium 10.0 8.6 - 10.4 mg/dL [facility] 03/20/2020 6:48 AM EDT 03/20/2020 1:10 PM EDT Narrative [facility] - 03/20/2020 5:43 PM EDT Please note that this estimated [...] needs for GFR calculation. Resulting Agency Comment [id number] us Johnny Izquierdo MD LABORATORY Final Result Performing Organization Address [facility] de Phone Number [facility] [address] [place] [address] * (ABNORMAL) THYROID CASCADING REFLEX (03/20/2020 6:48 AM EDT) TSH 5.72(H) 0.40 - 4.50 mIU/L [facility] FT4 1.4 0.8 - 1.8 ng/dL [facility] INTERPRETATION SEE NOTE [facility] Comment: TSH result is high, FT4 is normal, TPO AB are absent or low. Consistent with subclinical Hypothyroidism or Nonthyroidal illness (Euthyroid sick syndrome). Moderate TSH increase and normal FT4 are often seen in euthyroid elderly patients and in patients with interfering antibodies (i.e. anti-animal antibodies). Interference from heterophilic antibodies (more common) or autoantibody (less common) should be considered when the TSH value does not fit the clinical picture. TSH with HAMA Treatment (test code 62438) or TSH Antibody (test code 34521) may help identify such interferences. Thyroperoxidase Ab <1 <9 IU/mL [facility] 03/20/2020 6:48 AM EDT 03/20/2020 1:10 PM EDT Narrative Resulting Agency Comment [id number] us Johnny Izquierdo MD LABORATORY Final Result Performing Organization Address [facility] de Phone Number [facility] [address] [place] [address] documented in this encounter Visit Diagnoses Diagnosis Hypothyroidism (acquired) Unspecified hypothyroidism Controlled type 2 diabetes mellitus without complication, with long-term current use of insulin (HCC) documented in this encounter Additional Health Concerns Infection Onset Date Last Indicated Resolved Time COVID-19 Rule-Out 09/12/2020 09/12/2020 12/07/2020 8:13 PM EST documented as of this encounter Care Teams Interior Decorator Relationship Specialty Start Date End Date Johnny Izquierdo MD [address] [facility] [place] [address] PCP - General 01/14/06 04/21/22 Johnny Frazier MD [address] [facility] [place] [address] PCP - General Family Medicine 04/22/22 documented as of this encounter
--- OUTSIDE RECORDS SUMMARY | 2025-01-21 18:22 | XMS_ITS | Encounter Summary ---
Author Organization [facility] Address [address] [place] [address] Care Team Providers Care Museum Attendant Name Role Phone Johnny Frazier MD Primary Care Provider [phone] Encounter Details Date Type Department Care Team (Late st Contact Info) Description 10/18/2023 Orders Only [facility] [address] [place] [phone] Johnny Frazier MD [address] [place] [address] Social History Tobacco Use Types Packs/Day Years [...] Description 02/07/2025 9:25 AM EDT Office Visit [facility] [address] [place] [address] Siomara Li MD [address] [place] [address] Return in about 3 months (around 03/12/2025). 05/12/2025 12:45 PM EDT CPE - Comprehensive Physical Exam [facility] [address] [place] [address] Tiffanie Rebolledo, LEATHER PIECE INSPECTOR [address] [place] [address] Last CPE: Not Found 06/11/2025 11:05 AM EDT Office Visit [facility] [address] [place] [address] Siomara Li MD [address] [place] [address] Keep this appt and Dr Britt can [...] Associated Diagnosis Comments CULTURE, URINE, ROUTINE Routine 10/18/2023 11:58 AM EST Burning with urination URINALYSIS, COMPLETE INCLUDES DIPSTICK AND MICROSCOPIC Routine 10/18/2023 11:58 AM EST Burning with urination BASIC METABOLIC PANEL WITH (GFR) Routine 10/18/2023 11:58 AM EST Burning with urination documented in this encounter Results * Due to [place] state law, this organization might not be sharing negative HIV tests. * CULTURE, URINE, ROUTINE (10/18/2023 11:58 AM EST) Bacteria culture (Urine) SEE NOTE [facility] Comment: ??CULTURE, URINE, ROUTINE ??Micro Number: ?[id number] ??Test Status: ? Final ??Specimen Source: ?? Urine ??Specimen Quality: ??Adequate ??Result: ?Less than 10,000 CFU/mL of single Gram negative ? organism isolated. No further testing will be ? performed. If clinically indicated, recollection ? using a method to minimize contamination, with ? prompt transfer to Urine Culture Transport Tube, ? is recommended. 10/18/2023 11:5 8 AM EST 10/19/2023 12:30 AM EST Narrative Resulting Agency Comment [id number] us Johnny Frazier MD LABORATORY Final Result Performing Organization Address City/State/[facility] Co de Phone Number [facility] [address] [place] [address] * (ABNORMAL) URINALYSIS, COMPLETE INCLUDES DIPSTICK AND MICROSCOPIC (10/18/2023 11:58 AM EST) Color (Urine) YELLOW YELLOW [facility] Appearance (Urine) CLEAR CLEAR [facility] Specific gravity (Urine) 1.010 1.001 - 1.035 [facility] pH (Urine) 6.5 5.0 - 8.0 [facility] Glucose (Urine) 1+(A) NEGATIVE [facility] Bilirubin (Urine) NEGATIVE NEGATIVE [...] elements. Only those elements seen were reported. 10/18/2023 11:5 8 AM EST 10/19/2023 12:30 AM EST Narrative Resulting Agency Comment [id number] us Johnny Frazier MD LAB SAME DAY RESULT Final Resu lt [facility] [address] [place] [address] * (ABNORMAL) BASIC METABOLIC PANEL WITH (GFR) (10/18/2023 11:58 AM EST) Glucose 260(H) 65 - 99 mg/dL [facility] Comment: ? Fasting reference interval For someone without known diabetes, a glucose value >125 mg/dL indicates that they may have diabetes and this should be confirmed with a follow-up test. Urea Nitrogen Blood (BUN) 10 7 - 25 mg/dL [facility] Creatinine 0.86 0.60 - 1.00 mg/dL [facility] EGFR 72 > OR = 60 mL/min/1. 73m2 [facility] BUN/Creatinine Ratio SEE NOTE: 6 - 22 (calc) [facility] Comment: ?? Not Reported: BUN and Creatinine are within ?? reference range. Sodium 135 135 - 146 mmol/L [facility] Potassium 4.3 3.5 - 5.3 mmol/L [facility] Chloride 100 98 - 110 mmol/L [facility] Carbon dioxide 28 20 - 32 mmol/L [facility] Calcium 9.7 8.6 - 10.4 mg/dL [facility] 10/18/2023 11:5 8 AM EST 10/19/2023 12:30 AM EST Narrative [facility] - 10/19/2023 3:25 AM EST Please note that this estimated [...] needs for GFR calculation. Resulting Agency Comment [id number] us Johnny Frazier MD LABORATORY Final Result [facility] [address] [place] [address] documented in this encounter Visit Diagnoses Diagnosis Burning with urination Dysuria documented in this encounter Care Teams Museum Attendant Relationship Specialty Start Date End Date Johnny Frazier MD [address] [facility] [place] [address] PCP - General Family Medicine 04/22/22 documented as of this encounter
--- OUTSIDE RECORDS SUMMARY | 2025-01-21 18:22 | XMS_ITS | Encounter Summary ---
Author Organization [facility] Address [address] [place] [address] Care Team Providers Care Stripper Machine Operator Name Role Phone Johnny Frazier MD Primary Care Provider [phone] Encounter Details Date Type Department Care Team ([facility] Contact Info) Description 09/20/2023 Orders Only [facility] [address] [place], [place] [phone] Johnny Frazier MD [address] [place] [address] Social History Tobacco Use Types Packs/Day Years [...] Description 02/07/2025 9:25 AM EDT Office Visit [facility] [address] [place] [address] Siomara Li MD [address] [place] [address] Return in about 3 months (around 03/12/2025). 05/12/2025 12:45 PM EDT CPE - Comprehensive Physical Exam [facility] [address] [place] [address] Tiffanie Rebolledo, JOB PLACEMENT OFFICER [address] [place] [address] Last CPE: Not Found 06/11/2025 11:05 AM EDT Office Visit [facility] [address] [place] [phone] Siomara Li MD [address] [place] [address] Keep this appt and Dr Britt can [...] Associated Diagnosis Comments TSH, 3RD GENERATION Routine 09/20/2023 9 :23 AM EST Hypothyroidism (acquired) MAGNESIUM, SERUM Routine 09/20/2023 9:23 AM EST Gastroesophageal reflux disease, unspecified whether esophagitis present HEMOGLOBIN A1C Routine 09/20/2023 9:23 AM EST Type 2 diabetes mellitus without complication, unspecified whether mcc insulin use ALBUMIN (MICROALBUMIN), RANDOM URINE, WITH CREATININE Routine 09/20/2023 9:23 AM EST Diabetes mellitus without complication HEPATIC FUNCTION PANEL (ALT,AST,ALK PH,BILI'S,TP,ALB) Routine 09/20/2023 9:23 AM EST Elevated ALT measurement documented in this encounter Results * Due to [place] state law, this organization might not be sharing negative HIV tests. * (ABNORMAL) HEPATIC FUNCTION PANEL (ALT,AST,ALK PH,BILI'S,TP,ALB) (09/20/2023 9:23 AM EST) Protein Total (Serum) 7.4 6.1 - 8.1 g/dL [facility] Albumin 4.1 3.6 - 5.1 g/dL [facility] Globulin 3.3 1.9 - 3.7 g/dL (calc) [facility] Albumin/Globulin 1.2 1.0 - 2.5 (calc) [facility] Bilirubin Total 0.3 0.2 - 1.2 mg/dL [facility] Bilirubin Direct 0.1 < OR = 0.2 mg/dL [facility] Bilirubin Indirect 0.2 0.2 - 1.2 mg/dL (calc) [facility] Alkaline phosphatase 79 37 - 153 U/L [facility] AST (SGOT) 27 10 - 35 U/L [facility] ALT (SGPT) 34(H) 6 - 29 U/L [facility] 09/20/2023 9:23 AM EST 09/20/2023 5:48 PM EST Narrative Resulting Agency Comment [id number] us Johnny Frazier MD LABORATORY Final Result Performing Organization Address City/State/[facility] Co de Phone Number [facility] [address] [place] [address] * (ABNORMAL) HEMOGLOBIN A1C (09/20/2023 9:23 AM EST) Hemoglobin A1C 6.9(H) <5.7 % of total Hgb [facility] [...] of diabetes for children. Estimated Average Glucose 168 mg/dL (calc) [facility] 09/20/2023 9:23 AM EST 09/20/2023 5:48 PM EST Narrative Resulting Agency Comment [id number] us Johnny Frazier MD LABORATORY Final Result Performing Organization Address [facility] Co de Phone Number [facility] [address] [place] [phone] * MAGNESIUM, SERUM (09/20/2023 9:23 AM EST) Magnesium 1.9 1.5 - 2.5 mg/dL [facility] 09/20/2023 9:23 AM EST 09/20/2023 5:48 PM EST Narrative Resulting Agency Comment [id number] us Johnny Frazier MD LABORATORY Final Result Performing Organization Address [facility] de Phone Number [facility] [address] [place] [address] * TSH, 3RD GENERATION (09/20/2023 9:23 AM EST) TSH 3.16 0.40 - 4.50 mIU/L [facility] 09/20/2023 9:23 AM EST 09/20/2023 5:48 PM EST Narrative Resulting Agency Comment [id number] us Johnny Frazier MD LABORATORY Final Result Performing Organization Address [facility] Co de Phone Number [facility] [address] [place] [address] * ALBUMIN (MICROALBUMIN), RANDOM URINE, WITH CREATININE [...] 5:48 PM EST Narrative Resulting Agency Comment [id number] us Johnny Frazier MD LABORATORY Final Result Performing Organization Address City/State/[facility] Co de Phone Number [facility] [address] [place] [address] documented in this encounter Visit Diagnoses Diagnosis Diabetes mellitus without complication (HCC) Type II or unspecified type diabetes mellitus without mention of complication, not stated as uncontrolled Hypothyroidism (acquired) Unspecified hypothyroidism Gastroesophageal reflux disease, unspecified whether esophagitis present Type 2 diabetes mellitus without complication, unspecified whether long goods drier insulin use (HCC) Elevated ALT measurement Nonspecific elevation of levels of transaminase or lactic acid dehydrogenase (LDH) documented in this encounter Care Teams Stripper Machine Operator Relationship Specialty Start Date End Date Johnny Frazier MD [address] [facility] [place] [address] PCP - General Family Medicine 04/22/22 documented as of this encounter
--- OUTSIDE RECORDS SUMMARY | 2025-01-21 18:22 | XMS_ITS | Encounter Summary ---
Author Organization [facility] Address [address] [place] [address] Care Team Providers Care Metallurgist Helper Name Role Phone Johnny Frazier MD Primary Care Provider [phone] Encounter Details Date Type Department Care Team ( Contact Info) Description 10/04/2023 Telephone CALL CENTER [facility] [address] [place] [phone] Johnny Eaotn Social History Tobacco Use Types Packs/Day Years [...] Description 02/07/2025 9:25 AM EDT Office Visit [facility] [address] [place] [phone] Siomara Li MD [address] [place] [address] Return in about 3 months (around 03/12/2025). 05/12/2025 12:45 PM EDT CPE - Comprehensive Physical Exam [facility] [place] [address] [place] [address] Tiffanie Rebolledo, RAPID TRANSIT OPERATOR [address] [place] [address] Last CPE: Not Found 06/11/2025 11:05 AM EDT Office Visit [facility] [address] [place] [phone] Siomara Li MD [address] [place] [address] Keep this appt and Dr Britt can [...] on filedocumented in this encounter Care Teams Metallurgist Helper Relationship Specialty Start Date End Date Johnny Frazier MD [address] [place] [address] PCP - General Family Medicine 04/22/22 documented as of this encounter
--- OUTSIDE RECORDS SUMMARY | 2025-01-21 18:22 | XMS_ITS | Encounter Summary ---
Author Organization [facility] Address [address] [place] [address] Care Team Providers Care Medical Office Manager Name Role Phone Johnny Izquierdo MD Primary Care Provider Johnny Frazier MD Primary Care Provider [phone] Reason for Visit * Reason Comments Patient Questions Encounter Details Date Type Department Care Team ([facility] st Contact Info) Description 07/02/2018 Telephone [facility] [address] [phone] Reymundo Cheney MD [address] [place], [place] [phone] Patient Questions Social History Tobacco Use Types Packs/Day Years [...] encounter Miscellaneous Notes * Telephone Encounter - Neetu Puentes LVN LPN - 07/02/2018 4:48 PM EDT Spoke with pt, wound area appears to be irritated from constant friction from abdominal binder. Pt does not note any infection. Signs of infection rev. Pt is applying dsg to area for protection &to absorb any drainage with daily changes. Pt advised to opt for a compression garment that does not ride up to avoid further irritation. All questions for proper wound care answered. Pt will call jovan further concerns. F/u appt booked in 1 wk. * Telephone Encounter - Connie See - 07/02/2018 4:37 PM EDT Spoke with Tatum pt of Dr. Cheney she had surgery on 06/07/18 for Panniculectomy. She states when she has the binder on and sits down it seems to irritate the area, becomes red. She also noticed some pinkish blood drainage. Tatum would like to speak with a nurse. [phone] (home) documented in this encounter Plan of Treatment Upcoming Encounters Date Type Department Care Team (Latest Contact Info) Description 02/07/2025 9:25 AM EDT Office Visit [facility] [address] [place] [phone] Siomara Li MD [address] [place] [address] Return in about 3 months (around 03/12/2025). 05/12/2025 12:45 PM EDT CPE - Comprehensive Physical Exam [facility] [address] [place] [address] Tiffanie Rebolledo NP [address] [place] [address] Last CPE: Not Found 06/11/2025 11:05 AM EDT Office Visit [facility] [address] [place] [address] [place] [address] Keep this appt and Dr Britt can [...] documented as of this encounter Care Teams Medical Office Manager Relationship Specialty Start Date End Date Johnny Izquierdo MD [address] [place] [address] PCP - General 01/14/06 04/21/22 Johnny Frazier MD [address] [place] [address] PCP - General Family Medicine 04/22/22 documented as of this encounter
--- OUTSIDE RECORDS SUMMARY | 2025-01-21 18:22 | XMS_ITS | Encounter Summary ---
Author Organization [facility] Address [address] [place] [address] Care Team Providers Care Defective Cigarette Slitter Name Role Phone Johnny Frazier MD Primary Care Provider [phone] Encounter Details Date Type Department Care Team ([facility] Contact Info) Description 01/29/2024 Telephone CALL CENTER [facility] [address] [place] [address] Johanne Ochoa, SECURITY POLICE OFFICER [address] [place] [address] Social History Tobacco Use Types Packs/Day Years [...] encounter Miscellaneous Notes * Telephone Encounter - Melissa Longoria - 01/29/2024 4:52 PM EDT Good afternoon, Tatum called said would call when ready to reschedule appointment. We will pull this order on 03/14/2024. The Radiology Department. documented in this encounter Plan of Treatment Upcoming Encounters Date Type Department Care Team (Latest Contact Info) Description 02/07/2025 9:25 AM EDT Office Visit [facility] [address] [place] [phone] Siomara Li MD [address] [place] [address] Return in about 3 months (around 03/12/2025). 05/12/2025 12:45 PM EDT CPE - Comprehensive Physical Exam [address] [address] Tiffanie Rebolledo, SECURITY POLICE OFFICER [address] [place] [address] Last CPE: Not Found 06/11/2025 11:05 AM EDT Office Visit [facility] [address] [place] [phone] Siomara Li MD [address] [place] [address] Keep this appt and Dr Britt can [...] on filedocumented in this encounter Care Teams Defective Cigarette Slitter Relationship Specialty Start Date End Date Johnny Frazier MD [address] [facility] [place] [address] PCP - General Family Medicine 04/22/22 documented as of this encounter
--- OUTSIDE RECORDS SUMMARY | 2025-01-21 18:22 | XMS_ITS | Encounter Summary ---
Author Organization [facility] Address [address] [place] [address] Care Team Providers Care Line Installer Repairer Name Role Phone Johnny Frazier MD Primary Care Provider [phone] Encounter Details Date Type Department Care Team (Late st Contact Info) Description 07/17/2023 Orders Only [facility] [address] [place] [phone] Johnny Frazier MD [address] [place] [address] Social History Tobacco Use Types Packs/Day Years [...] Description 02/07/2025 9:25 AM EDT Office Visit [facility] [address] [place] [address] Siomara Li MD [address] [place] [address] Return in about 3 months (around 03/12/2025). 05/12/2025 12:45 PM EDT CPE - Comprehensive Physical Exam [facility] [address] [place] [address] Tiffanie Rebolledo, BENEFIT SPECIALIST [address] [place] [address] Last CPE: Not Found 06/11/2025 11:05 AM EDT Office Visit [facility] [address] [place] [phone] Siomara Li MD [address] [place] [address] Keep this appt and Dr Britt can [...] of this encounter Procedures * Due to [place] [employer] law, this organization might not be sharing negative HIV tests. Procedure Name Priority Date/Time Associated Diagnosis Comments CULTURE, URINE, ROUTINE Routine 07/17/2023 1:53 PM EDT Dysuria URINALYSIS, COMPLETE INCLUDES DIPSTICK AND MICROSCOPIC Routine 07/17/2023 1:53 PM EDT Dysuria documented in this encounter Results * Due to [place] [employer] law, this organization might not be sharing negative HIV tests. * CULTURE, URINE, ROUTINE (07/17/2023 1:53 PM EDT) Bacteria culture (Urine) SEE NOTE [facility] Comment: ??CULTURE, URINE, ROUTINE ??Micro Number: ?[id number] ??Test Status: ? Final ??Specimen Source: ?? Urine ??Specimen Quality: ??Adequate ??Result: ?Mixed genital vicenta isolated. These superficial ? bacteria are not indicative of a urinary tract ? infection. No further organism identification is ? warranted on this specimen. If clinically ? indicated, recollect clean-catch, mid-stream ? urine and transfer immediately to Urine Culture ? Transport Tube. 07/17/2023 1:53 PM EDT 07/17/2023 7:35 PM EDT Narrative Resulting Agency Comment [id number] us Johnny Frazier MD LABORATORY Final Result Performing Organization Address City/State/[facility] Co de Phone Number [facility] [address] [place] [address] * URINALYSIS, COMPLETE INCLUDES DIPSTICK AND MICROSCOPIC (07/17/2023 1:53 PM EDT) Color (Urine) YELLOW YELLOW [facility] Appearance (Urine) CLEAR CLEAR [facility] Specific gravity (Urine) 1.012 1.001 - 1.035 [facility] pH (Urine) [...] elements. Only those elements seen were reported. 07/17/2023 1:53 PM EDT 07/17/2023 7:35 PM EDT Narrative Resulting Agency Comment [id number] us Johnny Frazier MD LAB SAME DAY RESULT Final Resu lt [facility] [address] [place] [address] documented in this encounter Visit Diagnoses Diagnosis Dysuria documented in this encounter Care Teams Line Installer Repairer Relationship Specialty Start Date End Date Johnny Frazier MD [address] [facility] [address] PCP - General Family Medicine 04/22/22 documented as of this encounter
--- OUTSIDE RECORDS SUMMARY | 2025-01-21 18:22 | XMS_ITS | Encounter Summary ---
Author Organization [facility] Address [address] [place] [address] Care Team Providers Care Mold Bunch Trimmer Name Role Phone Johnny Izquierdo MD Primary Care Provider [phone] Johnny Frazier MD Primary Care Provider [phone] Encounter Details Date Type Department Care Team (Late st Contact Info) Description 03/06/2019 Orders Only [facility] [address] [place] [phone] Johnny Izquierdo MD [address] [place], [place] [phone] Social History Tobacco Use Types Packs/Day Years [...] Progress Notes * Zoë Bob NP - 03/11/2019 10:42 AM EDT Please review with patient- 1. Starting metformin per last OV due to elevated A1c. 2. Patient should be taking levothyroxine daily on an empty stomach- slight increase in TSH. 3. May require increased atorvastatin to 80 mg daily due to increased ASCVD- okay to wait for PCP review. * Chasity Perera CMA - 03/11/2019 10:29 AM EDT Forwarded to covering provider [place] and PCP for review. Please review and advise. Patient has no upcoming appointment, no letter was generated documented in this encounter Plan of Treatment Upcoming Encounters Date Type Department Care Team (Latest Contact Info) Description 02/07/2025 9:25 AM EDT Office Visit [facility] [address] [place] [phone] Siomara iL MD [address] [place] [address] Return in about 3 months (around 03/12/2025). 05/12/2025 12:45 PM EDT CPE - Comprehensive Physical Exam [address] [phone] Tiffanie Rebolledo NP [address] [place] [address] Last CPE: Not Found 06/11/2025 11:05 AM EDT Office Visit [facility] [address] [place] [phone] Siomara Li MD [address] [place] [address] Keep this appt and Dr Britt can [...] of this encounter Procedures * Due to [place] [employer] law, this organization might not be sharing negative HIV tests. Procedure Name Priority Date/Time Associated Diagnosis Comments ERYTHROCYTE SEDIMENTATION RATE (ESR) Routine 03/06/2019 10:24 AM EDT Memory loss THYROID CASCADING REFLEX Routine 03/06/2019 10:24 AM EDT Hypothyroidism (acquired) HEMOGLOBIN A1C Routine 03/06/2019 10:24 AM EDT Controlled type 2 diabetes mellitus without complication, with long-term current use of insulin FOLATE, SERUM Routine 03/06/2019 10:24 AM EDT Memory loss VITAMIN B12 (CYANOCOBALAMIN), SERUM Routine 03/06/2019 10:24 AM EDT Memory loss ALBUMIN (MICROALBUMIN), RANDOM URINE, WITH CREATININE Routine 03/06/2019 10:24 AM EDT Controlled type 2 diabetes mellitus without complication, with long-term current use of insulin LIPID PANEL WITH REFLEX TO DIRECT LDL Routine 03/06/2019 10:24 AM EDT Controlled type 2 diabetes mellitus without complication, with long-term current use of insulin BASIC METABOLIC PANEL WITH (GFR) Routine 03/06/2019 10:24 AM EDT Controlled type 2 diabetes mellitus without complication, with long-term current use of insulin documented in this encounter Results * Due to [place] [employer] law, this organization might not be sharing negative HIV tests. * VITAMIN B12 (CYANOCOBALAMIN), SERUM (03/06/2019 10:24 AM EDT) Vitamin B12 (Cobalamins) 480 200 - 1100 pg/mL [facility] 03/06/2019 10:2 4 AM EDT 03/06/2019 4:28 PM EDT Narrative Resulting Agency Comment [id number] us Johnny Izquierdo MD LABORATORY Final Result Performing Organization Address [facility] de Phone Number [facility] [address] [place] [address] * ERYTHROCYTE SEDIMENTATION RATE (ESR), [place] (03/06/2019 10:24 AM EDT) Sedimentation Rate [place] (ESR) 29 < OR = 30 mm/h [facility] 03/06/2019 10:2 4 AM EDT 03/06/2019 4:28 PM EDT Narrative Resulting Agency Comment [id number] us Johnny Izquierdo MD LAB SAME DAY RESULT Final Res ult Performing Organization Address [facility] de Phone Number [facility] [address] [place] [address] * FOLATE, SERUM (03/06/2019 10:24 AM EDT) Folate 10.4 ng/mL [facility] Comment: ? Reference Range ? Low: ? <3.4 ? Borderline: ?3.4-5.4 ? Normal: ?>5.4 03/06/2019 10:2 4 AM EDT 03/06/2019 4:28 PM EDT Narrative Resulting Agency Comment [id number] us Johnny Izquierdo MD LABORATORY Final Result Performing Organization Address [facility] de Phone Number [facility] [address] [place] [address] * (ABNORMAL) THYROID CASCADING REFLEX (03/06/2019 10:24 AM EDT) TSH 5.23(H) 0.40 - 4.50 mIU/L [facility] FT4 0.9 0.8 - 1.8 ng/dL [facility] INTERPRETATION [...] picture. TSH with HAMA Treatment (test code 86661) or TSH Antibody (test code 35011) may help identify such interferences. Thyroperoxidase Ab 1 <9 IU/mL [facility] 03/06/2019 10:2 4 AM EDT 03/06/2019 4:28 PM EDT Narrative Resulting Agency Comment [id number] Johnny Izquierdo MD LABORATORY Final Result [facility] [address] [place] [address] * (ABNORMAL) BASIC METABOLIC PANEL WITH (GFR) (03/06/2019 10:24 AM EDT) Glucose 138(H) 65 - 99 mg/dL [facility] Comment: [...] approximately 13% higher for people identified as -[place]. EGFR 62 > OR = 60 mL/min/1 .73m2 [facility] GFR () 72 > OR = 60 mL/min/1 .73m2 [facility] BUN/Creatinine Ratio NOT APPLICABLE 6 - 22 (calc) [facility] Sodium 141 135 - 146 mmol/L [facility] Potassium 5.0 3.5 - 5.3 mmol/L [facility] Chloride 101 98 - 110 mmol/L [facility] Carbon dioxide 28 20 - 32 mmol/L [facility] Calcium 10.2 8.6 - 10.4 mg/dL [facility] 03/06/2019 10:2 4 AM EDT 03/06/2019 4:28 PM EDT Narrative [facility] - 03/06/2019 7:50 PM EDT Please note that this estimated [...] needs for GFR calculation. Resulting Agency Comment [id number] Johnny Izquierdo MD LABORATORY Final Result Performing Organization Address [facility] Co de Phone Number [facility] [address] [place] [address] * ALBUMIN (MICROALBUMIN), RANDOM URINE, WITH CREATININE (03/06/2019 10:24 AM EDT) Pathologist [facility] Creatinine (Urine) 79 20 - 275 mg/dL [facility] Albumin (Urine) 1.1 mg/dL [facility] Comment: Reference Range Not established Albumin/Creatinine (Urine) 14 <30 mcg/mg creat [facility] Comment: The ADA defines abnormalities in albumin excretion as follows: Category ? Result (mcg/mg creatinine) Normal ?<30 Microalbuminuria ? 30-299 Clinical albuminuria ?? > OR = 300 The ADA recommends that at least two of three specimens collected within a 3-6 month period be abnormal before considering a patient to be within a diagnostic category. 03/06/2019 10:2 4 AM EDT 03/06/2019 4:28 PM EDT Narrative Resulting Agency Comment [id number] Johnny Izquierdo MD LABORATORY Final Result Performing Organization Address [facility] Co de Phone Number [facility] [address] [place] [address] * (ABNORMAL) LIPID PANEL WITH REFLEX TO DIRECT LDL (03/06/2019 10:24 AM EDT) Cholesterol 198 <200 mg/dL [facility] HDL Cholesterol 35(L) >50 mg/dL [facility] Triglyceride 202(H) <150 mg/dL [facility] LDL Cholesterol 129(H) mg/dL (calc) [facility] Comment: Reference range: [...] of LDL-C. Bobby SS et al. HECTOR. 2013;310(31): 7787-0756 (http://education.Prolifiq Software/faq/FSH524) CHOL/HDL Ratio 5.7(H) <5.0 (calc) [facility] Cholesterol Non-HDL 163(H) <130 mg/dL (calc) [facility] Comment: For patients with diabetes plus 1 major ASCVD risk factor, treating to a non-HDL-C goal of <100 mg/dL (LDL-C of <70 mg/dL) is considered a therapeutic option. 03/06/2019 10:2 4 AM EDT 03/06/2019 4:28 PM EDT Narrative Resulting Agency Comment [id number] Johnny Izquierdo MD LABORATORY Final Result [facility] [address] [place] [address] * (ABNORMAL) HEMOGLOBIN A1C (03/06/2019 10:24 AM EDT) Hemoglobin A1C 6.8(H) <5.7 % of [...] Average Glucose 165 mg/dL (calc) [facility] 03/06/2019 10:2 4 AM EDT 03/06/2019 4:28 PM EDT Narrative Resulting Agency Comment [id number] Johnny Izquierdo MD LABORATORY Final Result Performing Organization Address City/State/[facility] Co de Phone Number [facility] [address] [place] [address] documented in this encounter Visit Diagnoses Diagnosis Controlled type 2 diabetes mellitus without complication, with long-term current use of insulin (HCC) Hypothyroidism (acquired) Unspecified hypothyroidism Memory loss documented in this encounter Additional Health Concerns Infection Onset Date Last Indicated Resolved Time COVID-19 Rule-Out 09/12/2020 09/12/2020 12/07/2020 8:13 PM EST documented as of this encounter Care Teams Mold Bunch Trimmer Relationship Specialty Start Date End Date Johnny Izquierdo MD [address] [place] [address] PCP - General 01/14/06 04/21/22 Johnny Frazier MD [address] [place] [address] PCP - General Family Medicine 04/22/22 documented as of this encounter
--- OUTSIDE RECORDS SUMMARY | 2025-01-21 18:22 | XMS_ITS | Encounter Summary ---
Author Organization [facility] Address [address] [place] [address] Care Team Providers Care Associate Professor Of Musicology Name Role Phone Johnny Izquierdo MD Primary Care Provider [phone] Johnny Frazier MD Primary Care Provider [phone] Encounter Details Date Type Department Care Team (Late st Contact Info) Description 10/22/2019 Orders Only [facility] [address] [place] [phone] Johnny Izquierdo MD [address] [place], [place] [phone] Social History Tobacco Use Types Packs/Day Years [...] Progress Notes * Chasity Perera CMA - 10/22/2019 5:00 PM EST Please review and advise. Pt does not have any upcoming appointments. No letter generated. documented in this encounter Plan of Treatment Upcoming Encounters Date Type Department Care Team (Latest Contact Info) Description 02/07/2025 9:25 AM EDT Office Visit [facility] [address] [place] [address] Siomara Li MD [address] [place] [address] Return in about 3 months (around 03/12/2025). 05/12/2025 12:45 PM EDT CPE - Comprehensive Physical Exam [facility] [address] [place] [address] Tiffanie Rebolledo, SOPHIE [address] [place] [address] Last CPE: Not Found 06/11/2025 11:05 AM EDT Office Visit [facility] [address] [place] [address] Siomara Li MD [address] [place] [address] Keep this appt and Dr Britt can [...] this encounter Procedures * Due to [place] state law, this organization might not be sharing negative HIV tests. Procedure Name Priority Date/Time Associated Diagnosis Comments THYROID STIMULATING HORMONE (TSH) WITH FREE T4 REFLEX, SERUM Routine 10/22/2019 5:00 PM EST Essential hypertension Hyperlipidemia with target LDL less than 100 Type 2 diabetes mellitus without complication, without long-term current use of insulin Hypothyroidism (acquired) HEMOGLOBIN A1C Routine 10/22/2019 5:00 PM EST Essential hypertension Hyperlipidemia with target LDL less than 100 Type 2 diabetes mellitus without complication, without long-term current use of insulin Hypothyroidism (acquired) VENIPUNCTURE Routine 10/22/2019 5:00 PM EST Essential hypertension Hyperlipidemia with target LDL less than 100 Type 2 diabetes mellitus without complication, without long-term current use of insulin Hypothyroidism (acquired) BASIC METABOLIC PANEL WITH (GFR) Routine 10/22/2019 5:00 PM EST Essential hypertension Hyperlipidemia with target LDL less than 100 Type 2 diabetes mellitus without complication, without long-term current use of insulin Hypothyroidism (acquired) documented in this encounter Results * Due to [place] state law, this organization might not be sharing negative HIV tests. * (ABNORMAL) HEMOGLOBIN A1C (10/22/2019 5:00 PM EST) Hemoglobin A1C 7.6(H) <5.7 % of total Hgb [facility] [...] of diabetes for children. Estimated Average Glucose 193 mg/dL (calc) [facility] 10/22/2019 5:00 PM EST 10/22/2019 11:16 PM EST Narrative Resulting Agency Comment [id number] us Johnny Izquierdo MD LABORATORY Final Result [facility] [address] [place] [address] * (ABNORMAL) THYROID STIMULATING HORMONE (TSH) WITH FREE T4 REFLEX, SERUM (10/22/2019 5:00 PM EST) TSH 8.90(H) 0.40 - 4.50 mIU/L [facility] FT4 0.8 0.8 - 1.8 ng/dL [facility] 10/22/2019 5:00 PM EST 10/22/2019 11:16 PM EST Narrative Resulting Agency Comment [id number] us Johnny Izquierdo MD LABORATORY Final Result [facility] [address] [place] [address] * (ABNORMAL) BASIC METABOLIC PANEL WITH (GFR) (10/22/2019 5:00 PM EST) Glucose 160(H) 65 - 99 mg/dL [facility] Comment: ? Fasting reference interval For someone without known diabetes, a glucose value >125 mg/dL indicates that they may have diabetes and this should be confirmed with a follow-up test. Urea Nitrogen Blood (BUN) 13 7 - 25 mg/dL [facility] Creatinine 0.92 0.50 - 0.99 mg/dL [facility] Comment: For patients >49 years of age, the reference limit for Creatinine is approximately 13% higher for people identified as -[place]. EGFR 64 > OR = 60 mL/min/1 .73m2 [facility] GFR () 74 > OR = 60 mL/min/1 .73m2 [facility] BUN/Creatinine Ratio NOT APPLICABLE 6 - 22 (calc) [facility] Sodium 138 135 - 146 mmol/L [facility] Potassium 4.5 3.5 - 5.3 mmol/L [facility] Chloride 101 98 - 110 mmol/L [facility] Carbon dioxide 28 20 - 32 mmol/L [facility] Calcium 9.7 8.6 - 10.4 mg/dL [facility] 10/22/2019 5:00 PM EST 10/22/2019 11:16 PM EST Narrative [facility] - 10/23/2019 3:39 AM EST Please note that this estimated [...] needs for GFR calculation. Resulting Agency Comment [id number] us Johnny Izquierdo MD LABORATORY Final Result Performing Organization Address City/[facility]/ZIP Co de Phone Number [facility] [address] [place] [address] * (ABNORMAL) LIPID PANEL WITH REFLEX TO DIRECT LDL (10/22/2019 5:00 PM EST) Cholesterol 177 <200 mg/dL [facility] HDL Cholesterol 30(L) >50 mg/dL [facility] Triglyceride 235(H) <150 mg/dL [facility] Comment: If a non-fasting specimen was collected, consider repeat triglyceride testing on a fasting specimen if clinically indicated. Deloris et al. J. of Clin. Lipidol. 2015;9:129-169. LDL Cholesterol 111(H) mg/dL (calc) [facility] Comment: Reference range: [...] LDL-C. Bobby PATTEN et al. HECTOR. 2013;310(19): 1921-5723 (http://education.RevoLaze.farmflo/faq/XOA472) CHOL/HDL Ratio 5.9(H) <5.0 (calc) [facility] Cholesterol Non-HDL 147(H) <130 mg/dL (calc) [facility] Comment: For patients with diabetes plus 1 major ASCVD risk factor, treating to a non-HDL-C goal of <100 mg/dL (LDL-C of <70 mg/dL) is considered a therapeutic option. 10/22/2019 5:00 PM EST 10/22/2019 11:16 PM EST Narrative Resulting Agency Comment [id number] Johnny Izquierdo MD LABORATORY Final Result Performing Organization Address [facility] Co de Phone Number [facility] [address] [place] [address] documented in this encounter Visit Diagnoses Diagnosis Essential hypertension Hyperlipidemia with target LDL less than 100 Other and unspecified hyperlipidemia Type 2 diabetes mellitus without complication, without long-term current use of insulin (HCC) Hypothyroidism (acquired) Unspecified hypothyroidism documented in this encounter Additional Health Concerns Infection Onset Date Last Indicated Resolved Time COVID-19 Rule-Out 09/12/2020 09/12/2020 12/07/2020 8:13 PM EST documented as of this encounter Care Teams Associate Professor Of Musicology Relationship Specialty Start Date End Date Johnny Izquierdo MD [address] [place] [address] PCP - General 01/14/06 04/21/22 Johnny Frazier MD [address] [place] [address] PCP - General Family Medicine 04/22/22 documented as of this encounter
--- OUTSIDE RECORDS SUMMARY | 2025-01-21 18:22 | XMS_ITS | Encounter Summary ---
Author Organization [facility] Address [address] [place] [address] Care Team Providers Care Shear Grinder Operator Name Role Phone Johnny Izquierdo MD Primary Care Provider [phone] Johnny Frazier MD Primary Care Provider [phone] Encounter Details Date Type Department Care Team (Late st Contact Info) Description 09/05/2018 Orders Only [facility] [address] [place] [phone] Johnny Izquierdo MD [address] [place], [place] [phone] Social History Tobacco Use Types Packs/Day Years [...] as of this encounter Progress Notes * Claribel Youssef - 09/06/2018 8:52 AM EST Please review and advise. Pt does not have any upcoming appointments. No letter generated. documented in this encounter Plan of Treatment Upcoming Encounters Date Type Department Care Team (Latest Contact Info) Description 02/07/2025 9:25 AM EDT Office Visit [facility] [address] [place] [address] Siomara Li MD [address] [place] [address] Return in about 3 months (around 03/12/2025). 05/12/2025 12:45 PM EDT CPE - Comprehensive Physical Exam [facility] [address] [place] [address] Tiffanie Rebolledo, GLOST PLACER [address] [place] [address] Last CPE: Not Found 06/11/2025 11:05 AM EDT Office Visit [facility] [address] [place] [address] Siomara Li MD [address] [place] [address] Keep this appt and Dr Britt can [...] of this encounter Procedures * Due to [place] [employer] law, this organization might not be sharing negative HIV tests. Procedure Name Priority Date/Time Associated Diagnosis Comments HEMOGLOBIN A1C Routine 09/05/2018 11:58 AM EST Type 2 diabetes mellitus without complication, without long-term current use of insulin documented in this encounter Results * Due to [place] [employer] law, this organization might not be sharing negative HIV tests. * (ABNORMAL) HEMOGLOBIN A1C (09/05/2018 11:58 AM EST) Hemoglobin A1C 6.5(H) <5.7 % of total [...] Average Glucose 154 mg/dL (calc) [facility] 09/05/2018 11:5 8 AM EST 09/05/2018 6:45 PM EST Narrative Resulting Agency Comment [id number] Johnny Izquierdo MD LABORATORY Final Result [facility] [address] [place] [address] documented in this encounter Visit Diagnoses Diagnosis Type 2 diabetes mellitus without complication, without long-term current use of insulin (HCC) documented in this encounter Additional Health Concerns Infection Onset Date Last Indicated Resolved Time COVID-19 Rule-Out 09/12/2020 09/12/2020 12/07/2020 8:13 PM EST documented as of this encounter Care Teams Shear Grinder Operator Relationship Specialty Start Date End Date Johnny Izquierdo MD [address] [place] [address] PCP - General 01/14/06 04/21/22 Johnny Frazier MD [address] [place] [address] PCP - General Family Medicine 04/22/22 documented as of this encounter
--- OUTSIDE RECORDS SUMMARY | 2025-01-21 18:22 | XMS_ITS | Encounter Summary ---
Author Organization [facility] Address [address] [place] [address] Care Team Providers Care Manager Acute Name Role Phone Johnny Izquierdo MD Primary Care Provider [phone] Johnny Frazier MD Primary Care Provider [phone] Encounter Details Date Type Department Care Team (Late st Contact Info) Description 03/29/2016 Orders Only [facility] [address] [place] [phone] Siomara Li MD [address] [place] [address] Social History Tobacco Use Types Packs/Day Years [...] Description 02/07/2025 9:25 AM EDT Office Visit [facility] [address] [place] [phone] Siomara Li MD [address] [place] [address] Return in about 3 months (around 03/12/2025). 05/12/2025 12:45 PM EDT CPE - Comprehensive Physical Exam [facility] [address] [place] [address] Tiffanie Rebolledo, QUALITY ENGINEERING MANAGER [address] [place] [address] Last CPE: Not Found 06/11/2025 11:05 AM EDT Office Visit [facility] [address] [place] [phone] Siomara Li MD [address] [place] [phone] Keep this appt and Dr Britt can [...] encounter Procedures * Due to [place] [employer] law, this organization might not be sharing negative HIV tests. Procedure Name Priority Date/Time Associated Diagnosis Comments SYPHILIS (FTA) ANTIBODY CASCADING REFLEX TO RPR/TITER (*PREFERRED SCREEN*) Routine 03/29/2016 1:48 PM EDT Memory loss Abnormal involuntary movements FOLATE, SERUM Routine 03/29/2016 1:48 PM EDT Memory loss Abnormal involuntary movements VITAMIN B12 (CYANOCOBALAMIN), SERUM Routine 03/29/2016 1:48 PM EDT Memory loss Abnormal involuntary movements documented in this encounter Results * Due to [place] [employer] law, this organization might not be sharing negative HIV tests. * SYPHILIS (FTA) ANTIBODY CASCADING REFLEX TO RPR/TITER (*PREFERRED SCREEN*) (03/29/2016 1:48 PM EDT) Treponema pallidum Ab Negative Negative [facility] Comment: {T. PALLIDUM AB, EIA {[id number]) No antibodies to T. pallidum (the agent causing syphilis) were detected in the specimen. This result, however, does not exclude very recent T. pallidum infection; testing of a second specimen, collected 2-4 weeks after this specimen, is recommended if the index of suspicion for recent infection is high. 03/29/2016 1:48 PM EDT 03/29/2016 10:41 PM EDT Narrative Resulting Agency Comment [id number] Siomara Li MD LABORATORY Fin al Result Performing Organization Address City/State/[facility] Co de Phone Number [facility] [address] [place] [address] * FOLATE, SERUM (03/29/2016 1:48 PM EDT) Pathologist [facility] Folate 9.9 ng/mL [facility] Comment: {FOLATE, SERUM {[id number]) ? Reference Range ? Low: ? <3.4 ? Borderline: ?3.4-5.4 ? Normal: ?>5.4 03/29/2016 1:48 PM EDT 03/29/2016 10:41 PM EDT Narrative Resulting Agency Comment [id number] Siomara Li MD LABORATORY Fin al Result Performing Organization Address City/[facility]/ZIP Co de Phone Number [facility] [address] [place] [address] * VITAMIN B12 (CYANOCOBALAMIN), SERUM (03/29/2016 1:48 PM EDT) Vitamin B12 (Cobalamins) 578 200 - 1100 pg/mL [facility] Comment:{VITAMIN B12 {[id number]) 03/29/2016 1:48 PM EDT 03/29/2016 10:41 PM EDT Narrative Resulting Agency Comment [id number] Siomara Li MD LABORATORY Fin al Result Performing Organization Address [facility] Co de Phone Number [facility] [address] [place] [address] documented in this encounter Visit Diagnoses Diagnosis Memory loss Abnormal involuntary movements documented in this encounter Additional Health Concerns Infection Onset Date Last Indicated Resolved Time COVID-19 Rule-Out 09/12/2020 09/12/2020 12/07/2020 8:13 PM EST documented as of this encounter Care Teams Manager Acute Relationship Specialty Start Date End Date Johnny Izquierdo MD [address] [place] [address] PCP - General 01/14/06 04/21/22 Johnny Frazier MD [address] [place] [address] PCP - General Family Medicine 04/22/22 documented as of this encounter
--- OUTSIDE RECORDS SUMMARY | 2025-01-21 18:22 | XMS_ITS | Encounter Summary ---
Author Organization [facility] Address [address] [place] [address] Care Team Providers Care Picker Operator Name Role Phone Johnny Frazier MD Primary Care Provider [phone] Encounter Details Date Type Department Care Team ([facility] Contact Info) Description 01/03/2024 Orders Only [facility] [address] [place], [place] [phone] Johnny Frazier MD [address] [place] [address] Social History Tobacco Use Types Packs/Day Years [...] Description 02/07/2025 9:25 AM EDT Office Visit [facility] [address] [place] [address] Siomara Li MD [address] [place] [address] Return in about 3 months (around 03/12/2025). 05/12/2025 12:45 PM EDT CPE - Comprehensive Physical Exam [facility] [address] [place] [address] Tiffanie Rebolledo, RUSH SEATER [address] [place] [address] Last CPE: Not Found 06/11/2025 11:05 AM EDT Office Visit [facility] [address] [place] [phone] Siomara Li MD [address] [place] [address] Keep this appt and Dr Britt can [...] of this encounter Procedures * Due to [place] state law, this organization might not be sharing negative HIV tests. Procedure Name Priority Date/Time Associated Diagnosis Comments HEMOGLOBIN A1C Routine 01/03/2024 11:12 AM EDT Diabetes mellitus without complication ALBUMIN (MICROALBUMIN), RANDOM URINE, WITH CREATININE Routine 01/03/2024 11:12 AM EDT Diabetes mellitus without complication LIPID PANEL WITH REFLEX TO DIRECT LDL Routine 01/03/2024 11:12 AM EDT Diabetes mellitus without complication BASIC METABOLIC PANEL WITH (GFR) Routine 01/03/2024 11:12 AM EDT Diabetes mellitus without complication documented in this encounter Results * Due to [place] state law, this organization might not be sharing negative HIV tests. * (ABNORMAL) HEMOGLOBIN A1C (01/03/2024 11:12 AM EDT) Hemoglobin A1C 7.6(H) <5.7 % of total [...] children. Estimated Average Glucose 193 mg/dL (calc) [facility] 01/03/2024 11:1 2 AM EDT 01/03/2024 3:23 PM EDT Narrative Resulting Agency Comment [id number] Johnny Frazier MD LABORATORY Final Result [facility] [address] [place] [address] * (ABNORMAL) BASIC METABOLIC PANEL WITH (GFR) (01/03/2024 11:12 AM EDT) Glucose 264(H) 65 - 99 mg/dL [facility] Comment: ? Fasting reference interval For someone without known diabetes, a glucose value >125 mg/dL indicates that they may have diabetes and this should be confirmed with a follow-up test. Urea Nitrogen Blood (BUN) 16 7 - 25 mg/dL [facility] Creatinine 0.92 0.60 - 1.00 mg/dL [facility] EGFR 66 > OR = 60 mL/min/1. 73m2 [facility] BUN/Creatinine Ratio SEE NOTE: 6 (calc) [facility] Comment: ?? Not Reported: BUN and Creatinine are within ?? reference range. Sodium 135 135 - 146 mmol/L [facility] Potassium 4.5 3.5 - 5.3 mmol/L [facility] Chloride 100 98 - 110 mmol/L [facility] Carbon dioxide 27 20 - 32 mmol/L [facility] Calcium 10.0 8.6 - 10.4 mg/dL [facility] 01/03/2024 11:1 2 AM EDT 01/03/2024 3:23 PM EDT Narrative [facility] - 01/03/2024 6:11 PM EDT Please note that this estimated [...] needs for GFR calculation. Resulting Agency Comment [id number] us Johnny Frazier MD LABORATORY Final Result Performing Organization Address City/State/[facility] Co de Phone Number [facility] [address] [place] [address] * (ABNORMAL) LIPID PANEL WITH REFLEX TO DIRECT LDL (01/03/2024 11:12 AM EDT) Cholesterol 219(H) <200 mg/dL [facility] HDL Cholesterol 32(L) > OR = 50 mg/dL [facility] Triglyceride 218(H) <150 mg/dL [facility] Comment: If a non-fasting specimen was collected, consider repeat triglyceride testing on a fasting specimen if clinically indicated. Deloris et al. J. of Clin. Lipidol. 2015;9:129-169. LDL Cholesterol 151(H) mg/dL (calc) [facility] Comment: Reference range: [...] LDL-C. Bobby PATTEN et al. HECTOR. 2013;310(19): 6172-2836 (http://education.Artimplant AB/faq/SIY109) CHOL/HDL Ratio 6.8(H) <5.0 (calc) [facility] Cholesterol Non-HDL 187(H) <130 mg/dL (calc) [facility] Comment: For patients with diabetes plus 1 major ASCVD risk factor, treating to a non-HDL-C goal of <100 mg/dL (LDL-C of <70 mg/dL) is considered a therapeutic option. 01/03/2024 11:1 2 AM EDT 01/03/2024 3:23 PM EDT Narrative Resulting Agency Comment [id number] Johnny Frazier MD LABORATORY Final Result Performing Organization Address [facility] de Phone Number [facility] [address] [place] [address] * (ABNORMAL) ALBUMIN (MICROALBUMIN), RANDOM URINE, WITH CREATININE (01/03/2024 11:12 AM EDT) Creatinine (Urine) 80 20 - 275 mg/dL [facility] Albumin (Urine) 3.0 mg/dL [facility] Comment: Reference Range Not established Albumin/Creatinine (Urine) 38(H) <30 mcg/mg creat [facility] Comment: The [...] patient to be within a diagnostic category. 01/03/2024 11:1 2 AM EDT 01/03/2024 3:23 PM EDT Narrative Resulting Agency Comment [id number] Johnny Frazier MD LABORATORY Final Result Performing Organization Address [facility] de Phone Number [facility] [address] [place] [address] documented in this encounter Visit Diagnoses Diagnosis Diabetes mellitus without complication (HCC) Type II or unspecified type diabetes mellitus without mention of complication, not stated as uncontrolled documented in this encounter Care Teams Picker Operator Relationship Specialty Start Date End Date Johnny Frazier MD [address] [place] [address] PCP - General Family Medicine 04/22/22 documented as of this encounter
--- OUTSIDE RECORDS SUMMARY | 2025-01-21 18:22 | XMS_ITS | Encounter Summary ---
Author Organization [facility] Address [address] [place] [address] Care Team Providers Care Commercial Lending Relationship Manager Name Role Phone Johnny Frazier MD Primary Care Provider [phone] Reason for Visit * Reason Comments Imaging Study Encounter Details Date Type Department Care Team (Late st Contact Info) Description 01/29/2024 Telephone [facility] [address] [place] [phone] Johnny Izquierdo MD [address] [place], [place] [phone] Imaging Study Social History Tobacco Use Types [...] encounter Miscellaneous Notes * Telephone Encounter - Josh Wyatt RN - 01/29/2024 3:49 PM EDT [facility] called, will f\u w\ Neuro provider. * Telephone Encounter - Tiffanie Rebolledo NP - 01/29/2024 3:28 PM EDT Can we contact [facility] and see if they are able to do imaging with neurotransmitter? * Telephone Encounter - Mey Cleaning RN - 01/29/2024 1:48 PM EDT Patient reports having Neuro Stimulator in right buttocks Describes she received a new unit for neuro stimulator 1 -1.5 years ago. States she is able to turn neuro stimulator on/off with new unit received 1 - 1.5 years ago. Reports she believes for neuro stimulator to be off at this time. Describes when she received the new unit for neuro stimulator 1 - 1.5 years ago, she completed an MRI at [facility] around the same time. States [facility] was able to operate stimulator. Patient inquiring if she can have MRI ordered to [facility]? AG, LUMBER STACKER DRIVER - please advise * Telephone Encounter - Abby Hayes - 01/29/2024 1:34 PM EDT Pt calling asking about this. Call routed to nurse. Pt states had CT scan at [facility] but she is scheduled for one tomorrow. * Telephone Encounter - Kaila Jacobsen - 01/29/2024 1:18 PM EDT Good Afternoon, I was unable to schedule MRI of Liver for patient. DRY CELL TESTER will not allow Radiology to schedule patientdue to patient having Neuro Stimulator outside of [facility]. They state she cannot have it done at any facility unless she gets a new Stimulator. Patient will contact pcp for further instructions and options. Thank you Radiology Scheduling Dept. documented in this encounter Plan of Treatment Upcoming Encounters Date Type Department Care Team (Latest Contact Info) Description 02/07/2025 9:25 AM EDT Office Visit [facility] [address] [place] [address] Siomara Li MD [address] [place] [address] Return in about 3 months (around 03/12/2025). 05/12/2025 12:45 PM EDT CPE - Comprehensive Physical Exam [address] [phone] Tiffanie Rebolledo, LUMBER STACKER DRIVER [address] [place] [address] Last CPE: Not Found 06/11/2025 11:05 AM EDT Office Visit [facility] [address] [place] [phone] Siomara Li MD [address] [place] [address] Keep this appt and Dr Britt can [...] on filedocumented in this encounter Care Teams Commercial Lending Relationship Manager Relationship Specialty Start Date End Date Johnny Frazier MD [address] [facility] [place] [address] PCP - General Family Medicine 04/22/22 documented as of this encounter
--- OUTSIDE RECORDS SUMMARY | 2025-01-21 18:22 | XMS_ITS | Encounter Summary ---
Author Organization [facility] Address [address] [place] [address] Care Team Providers Care Bay Stocker Name Role Phone Johnny Frazier MD Primary Care Provider [phone] Encounter Details Date Type Department Care Team (Late st Contact Info) Description 10/05/2023 Orders Only [facility] [address] [place] [phone] Johnny Frazier MD [address] [place] [address] Social History Tobacco Use Types Packs/Day Years [...] Description 02/07/2025 9:25 AM EDT Office Visit [facility] [address] [place] [phone] Siomara Li MD [address] [place] [phone] Return in about 3 months (around 03/12/2025). 05/12/2025 12:45 PM EDT CPE - Comprehensive Physical Exam [facility] [address] [place] [phone] Tiffanie Rebolledo, RESEARCH NURSE PRACTITIONER [address] [place] [address] Last CPE: Not Found 06/11/2025 11:05 AM EDT Office Visit [facility] [address] [place] [address] Siomara Li MD [address] [place] [phone] Keep this appt and Dr Britt can [...] Name Priority Date/Time Associated Diagnosis Comments HEPATITIS B SURFACE ANTIGEN Routine 10/05/2023 11:45 AM EST Elevated ALT measurement HEPATITIS C AB WITH REFLEX TO RNA PCR, SERUM Routine 10/05/2023 11:45 AM EST Elevated ALT measurement IRON PROFILE (IRON/TIBC), SERUM Routine 10/05/2023 11:45 AM EST Elevated ALT measurement FERRITIN Routine 10/05/2023 11:45 AM EST Elevated ALT measurement documented in this encounter Results * Due to [place] state law, this organization might not be sharing negative HIV tests. * HEPATITIS C AB WITH REFLEX TO RNA PCR, SERUM (10/05/2023 11:45 AM EST) Hepatitis C virus Ab NON-REACT ISAMAR NON-REACT ISAMAR [facility] Comment: HCV antibody was non-reactive. There is no laboratory evidence of HCV infection. In most cases, no further action is required. However, if recent HCV exposure is suspected, a test for HCV RNA (test code 22980) is suggested. For additional information please refer to http://Glaxstar.[employer] Golf/faq/WRU96m4 (This link is being provided for informational/ educational purposes only.) 10/05/2023 11:4 5 AM EST 10/05/2023 4:34 PM EST Narrative Resulting Agency Comment [id number] us Johnny Frazier MD LABORATORY Final Result Performing Organization Address [facility] de Phone Number [facility] [address] [place] [address] * HEPATITIS B SURFACE ANTIGEN (10/05/2023 11:45 AM EST) Hepatitis B virus surface Ag NON-REACT ISAMAR NON-REACT ISAMAR [facility] Comment: For additional information, please refer to http://Glaxstar.91 [employer]/faq/FPF981 (This link is being provided for informational/ educational purposes only.) 10/05/2023 11:4 5 AM EST 10/05/2023 4:34 PM EST Narrative Resulting Agency Comment [id number] us Johnny Frazier MD LABORATORY Final Result Performing Organization Address [facility] Co de Phone Number [facility] [address] [place] [address] * IRON PROFILE (IRON/TIBC), SERUM (10/05/2023 11:45 AM EST) Iron 86 45 - 160 mcg/dL [facility] Iron binding capacity 364 250 - 450 mcg/dL (calc) [facility] Iron saturation 24 16 - 45 % (calc) [facility] 10/05/2023 11:4 5 AM EST 10/05/2023 4:34 PM EST Narrative Resulting Agency Comment [id number] Johnny Frazier MD LABORATORY Final Result Performing Organization Address [facility] de Phone Number [facility] [address] [place] [address] * FERRITIN (10/05/2023 11:45 AM EST) Ferritin 83 16 - 288 ng/mL [facility] 10/05/2023 11:4 5 AM EST 10/05/2023 4:34 PM EST Narrative Resulting Agency Comment [id number] us Johnny Frazier MD LABORATORY Final Result Performing Organization Address [facility] [place] de Phone Number [facility] [address] [place] [address] documented in this encounter Visit Diagnoses Diagnosis Elevated ALT measurement Nonspecific elevation of levels of transaminase or lactic acid dehydrogenase (LDH) documented in this encounter Care Teams Bay Stocker Relationship Specialty Start Date End Date Johnny Frazier MD [address] [facility] [place] [address] PCP - General Family Medicine 04/22/22 documented as of this encounter
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
[2025-01-21 19:57] VITALS: BP 101/61; PULSE 67; TEMP 36.6; O2SAT 97
[2025-01-21 20:45] LABS: Alanine Aminotransferase 24 U/L (0-31); Albumin Level 4.5 g/dL (3.5-5.0); Alkaline Phosphatase 111 U/L (39-117); Anion Gap 14 (12-20); Aspartate Amino Transferase 32 U/L (5-31); Bilirubin Total 0.4 mg/dL (0.0-1.0); Blood Urea Nitrogen 20 mg/dL (9-16); Calcium 10.3 mg/dL (8.4-10.2); Carbon Dioxide 28 mmol/L (22-29); Chloride 105 mmol/L (96-108); Creatinine Clr Calc Pharmacy 40.1; Estimated Glomerular Filt Rate 56; Glucose Random 131 mg/dL (60-115); Potassium 4.1 mmol/L (3.3-5.1); Sodium 143 mmol/L (135-145); Total Protein 8.5 g/dL (6.5-8.0)
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
[2025-01-21] MEDS: lamoTRIgine 100 MG TABLET 200 MG PO (20:56)
[2025-01-21] MEDS: cephALEXin 500 MG CAPSULE PO (20:57)
[2025-01-21] MEDS: Benztropine Mesylate 0.5 MG TABLET PO (20:57)
[2025-01-21] MEDS: QUEtiapine Fumarate 300 MG TABLET PO (20:57)
[2025-01-21] MEDS: Atorvastatin Calcium 80 MG TABLET PO (20:57)
[2025-01-21] MEDS: traZODone HCL 50 MG TABLET PO (20:57)
[2025-01-21] MEDS: amantadine HCL 100 MG CAPSULE PO (20:57)
[2025-01-21] MEDS: Docusate Sodium 100 MG CAPSULE PO (20:57)
[2025-01-21] MEDS: hydrOXYzine HCL 25 MG TABLET PO (20:57)
[2025-01-21] MEDS: QUEtiapine Fumarate 50 MG TABLET PO (20:57)
[2025-01-21 21:38] LABS: TSH reflex Free T4 0.67 uIU/mL (0.32-4.0)
[2025-01-22] MEDS: Levothyroxine Sodium 125 MCG TABLET PO (06:05)
[2025-01-22 08:32] VITALS: BP 128/59; PULSE 71; RESP 16; TEMP 36.8; O2SAT 96
[2025-01-22] MEDS: Benztropine Mesylate 0.5 MG TABLET PO ×2 (08:33→21:20)
[2025-01-22] MEDS: cephALEXin 500 MG CAPSULE PO ×2 (08:33→21:20)
[2025-01-22] MEDS: metFORMIN HCl 500 MG TABLET PO ×2 (08:33→17:28)
[2025-01-22] MEDS: amantadine HCL 100 MG CAPSULE PO ×2 (08:33→21:20)
[2025-01-22] MEDS: Docusate Sodium 100 MG CAPSULE PO ×2 (08:33→21:22)
[2025-01-22] MEDS: ARIPiprazole 20 MG TABLET PO (08:33)
[2025-01-22] MEDS: lisinopriL 10 MG TABLET PO (08:33)
[2025-01-22 08:57] LABS: Estimated Average Glucose 126 mg/dL; Hemoglobin A1C 147.0355 umol/L; Total Hemoglobin (HGBA1C) 3515.3704 umol/L
[2025-01-22 09:01] LABS: Cholesterol 115 mg/dL (<200); HDL Cholesterol 31 mg/dL (>40); LDL Cholesterol Calculated 68 mg/dL (<100); Triglycerides 83 mg/dL (<150)
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
[2025-01-22 20:00] VITALS: BP 115/57; PULSE 101; TEMP 36.7; O2SAT 97
[2025-01-22] MEDS: QUEtiapine Fumarate 300 MG TABLET PO (21:20)
[2025-01-22] MEDS: Amitriptyline HCl 10 MG TABLET PO (21:21)
[2025-01-22] MEDS: QUEtiapine Fumarate 50 MG TABLET PO (21:21)
[2025-01-22] MEDS: lamoTRIgine 100 MG TABLET 200 MG PO (21:22)
[2025-01-22] MEDS: Atorvastatin Calcium 80 MG TABLET PO (21:23)
[2025-01-22] MEDS: traZODone HCL 50 MG TABLET PO (21:30)
[2025-01-23] MEDS: Levothyroxine Sodium 125 MCG TABLET PO (07:15)
[2025-01-23 08:00] VITALS: BP 102/49; PULSE 77; TEMP 37.1; O2SAT 97
[2025-01-23] MEDS: Docusate Sodium 100 MG CAPSULE PO ×2 (08:33→19:54)
[2025-01-23] MEDS: metFORMIN HCl 500 MG TABLET PO ×2 (08:33→17:38)
[2025-01-23] MEDS: ARIPiprazole 20 MG TABLET PO (08:34)
[2025-01-23] MEDS: cephALEXin 500 MG CAPSULE PO ×2 (08:34→19:54)
[2025-01-23] MEDS: Benztropine Mesylate 0.5 MG TABLET PO ×2 (08:34→19:54)
[2025-01-23] MEDS: amantadine HCL 100 MG CAPSULE PO ×2 (08:34→19:53)
[2025-01-23 10:07] VITALS: BP 116/60; PULSE 83; RESP 12; TEMP 36.2; O2SAT 97
--- NOTE | 2025-01-23 12:45 | PC.NURSE ---
This nurse called [id number] for a nurse to nurse as pt is being transfered there. Per the pathology secretary/transcriptionist all nurses were busy assisting patients and the nurse accepting this pt will call [facility].
--- NOTE | 2025-01-23 13:29 | PC.NURSE ---
Pt was administered a MOCA on 01/23/2025 and scored 8/[address] Preet Mathis was notified.
--- NOTE | 2025-01-23 13:40 | PC.NURSE ---
Nurse to nurse completed. waiting for transfer orders to bring pt down to [facility]1. Dr Ramos aware.
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
[2025-01-23] MEDS: Amitriptyline HCl 10 MG TABLET PO (19:53)
[2025-01-23] MEDS: lamoTRIgine 100 MG TABLET 200 MG PO (19:54)
[2025-01-23] MEDS: Atorvastatin Calcium 80 MG TABLET PO (19:54)
[2025-01-23] MEDS: QUEtiapine Fumarate 300 MG TABLET PO (19:55)
[2025-01-23] MEDS: QUEtiapine Fumarate 50 MG TABLET PO (19:55)
[2025-01-23 20:00] VITALS: BP 127/57; PULSE 74; RESP 16; TEMP 36; O2SAT 94
[2025-01-24] MEDS: Levothyroxine Sodium 125 MCG TABLET PO (06:08)
[2025-01-24 08:48] VITALS: BP 133/63; PULSE 100; RESP 16; TEMP 36.9; O2SAT 96
[2025-01-24] MEDS: cephALEXin 500 MG CAPSULE PO ×2 (08:49→20:55)
[2025-01-24] MEDS: amantadine HCL 100 MG CAPSULE PO ×2 (08:49→20:54)
[2025-01-24] MEDS: Benztropine Mesylate 0.5 MG TABLET PO ×2 (08:49→20:55)
[2025-01-24] MEDS: ARIPiprazole 20 MG TABLET PO (08:49)
[2025-01-24] MEDS: Docusate Sodium 100 MG CAPSULE PO ×2 (08:49→20:55)
[2025-01-24] MEDS: lisinopriL 10 MG TABLET PO (08:49)
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
[2025-01-24] MEDS: metFORMIN HCl 500 MG TABLET PO ×2 (08:55→17:01)
[2025-01-24 20:00] VITALS: BP 114/55; PULSE 80; RESP 18; TEMP 36.6
[2025-01-24] MEDS: QUEtiapine Fumarate 50 MG TABLET PO (20:54)
[2025-01-24] MEDS: Atorvastatin Calcium 80 MG TABLET PO (20:55)
[2025-01-24] MEDS: QUEtiapine Fumarate 300 MG TABLET PO (20:55)
[2025-01-24] MEDS: Amitriptyline HCl 10 MG TABLET PO (20:55)
[2025-01-24] MEDS: lamoTRIgine 100 MG TABLET 200 MG PO (20:55)
[2025-01-25] MEDS: Levothyroxine Sodium 125 MCG TABLET PO (05:53)
[2025-01-25 08:00] VITALS: BP 122/58; PULSE 86; RESP 18; TEMP 36.4; O2SAT 96
[2025-01-25 08:33] VITALS: BP 122/58
[2025-01-25] MEDS: lisinopriL 10 MG TABLET PO (08:33)
[2025-01-25] MEDS: Docusate Sodium 100 MG CAPSULE PO ×2 (08:33→20:28)
[2025-01-25] MEDS: Benztropine Mesylate 0.5 MG TABLET PO ×2 (08:33→20:28)
[2025-01-25] MEDS: metFORMIN HCl 500 MG TABLET PO ×2 (08:33→16:02)
[2025-01-25] MEDS: amantadine HCL 100 MG CAPSULE PO ×2 (08:34→20:28)
[2025-01-25] MEDS: cephALEXin 500 MG CAPSULE PO ×2 (08:34→20:28)
[2025-01-25] MEDS: ARIPiprazole 20 MG TABLET PO (08:34)
[2025-01-25 20:00] VITALS: BP 144/65; PULSE 78; RESP 18; TEMP 36.7; O2SAT 95
[2025-01-25] MEDS: Amitriptyline HCl 10 MG TABLET PO (20:28)
[2025-01-25] MEDS: QUEtiapine Fumarate 50 MG TABLET PO (20:28)
[2025-01-25] MEDS: QUEtiapine Fumarate 300 MG TABLET PO (20:28)
[2025-01-25] MEDS: Atorvastatin Calcium 80 MG TABLET PO (20:28)
[2025-01-25] MEDS: lamoTRIgine 100 MG TABLET 200 MG PO (20:29)
[2025-01-25] MEDS: hydrOXYzine HCL 25 MG TABLET PO (20:29)
[2025-01-26] MEDS: Levothyroxine Sodium 125 MCG TABLET PO (06:05)
[2025-01-26 08:00] VITALS: BP 123/56; PULSE 83; RESP 18; TEMP 36.4; O2SAT 95
[2025-01-26] MEDS: amantadine HCL 100 MG CAPSULE PO ×2 (08:00→19:50)
[2025-01-26] MEDS: lisinopriL 10 MG TABLET PO (08:00)
[2025-01-26] MEDS: cephALEXin 500 MG CAPSULE PO ×2 (08:00→19:51)
[2025-01-26] MEDS: ARIPiprazole 20 MG TABLET PO (08:00)
[2025-01-26] MEDS: Docusate Sodium 100 MG CAPSULE PO ×2 (08:00→19:50)
[2025-01-26] MEDS: metFORMIN HCl 500 MG TABLET PO ×2 (08:00→16:43)
[2025-01-26] MEDS: Benztropine Mesylate 0.5 MG TABLET PO ×2 (08:00→19:51)
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
[2025-01-26] MEDS: Loratadine 10 MG TABLET PO (18:16)
[2025-01-26] MEDS: Atorvastatin Calcium 80 MG TABLET PO (19:50)
[2025-01-26] MEDS: QUEtiapine Fumarate 300 MG TABLET PO (19:51)
[2025-01-26] MEDS: lamoTRIgine 100 MG TABLET 200 MG PO (19:51)
[2025-01-26] MEDS: QUEtiapine Fumarate 50 MG TABLET PO (19:51)
[2025-01-26] MEDS: Amitriptyline HCl 10 MG TABLET PO (19:51)
[2025-01-26] MEDS: Magnesium Hydrox/Alum Hydrox 30 ML ORAL.SUSP PO (19:52)
[2025-01-26 20:00] VITALS: BP 150/70; PULSE 76; RESP 16; TEMP 36.5; O2SAT 97
[2025-01-27] MEDS: Levothyroxine Sodium 125 MCG TABLET PO (04:57)
[2025-01-27 09:05] VITALS: BP 121/57; PULSE 85; RESP 16; TEMP 36.5; O2SAT 95
[2025-01-27] MEDS: Loratadine 10 MG TABLET PO (09:33)
[2025-01-27] MEDS: metFORMIN HCl 500 MG TABLET PO ×2 (09:33→16:19)
[2025-01-27] MEDS: amantadine HCL 100 MG CAPSULE PO ×2 (09:33→20:07)
[2025-01-27] MEDS: ARIPiprazole 20 MG TABLET PO (09:33)
[2025-01-27] MEDS: Docusate Sodium 100 MG CAPSULE PO ×2 (09:33→20:07)
[2025-01-27] MEDS: Benztropine Mesylate 0.5 MG TABLET PO ×2 (09:34→20:07)
[2025-01-27] MEDS: lisinopriL 10 MG TABLET PO (09:34)
[2025-01-27] MEDS: Magnesium Hydrox/Alum Hydrox 30 ML ORAL.SUSP PO (14:51)
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
[2025-01-27 20:00] VITALS: BP 117/59; PULSE 66; RESP 16; TEMP 36.4; O2SAT 97
[2025-01-27] MEDS: QUEtiapine Fumarate 50 MG TABLET PO (20:07)
[2025-01-27] MEDS: lamoTRIgine 100 MG TABLET 200 MG PO (20:07)
[2025-01-27] MEDS: Atorvastatin Calcium 80 MG TABLET PO (20:07)
[2025-01-27] MEDS: QUEtiapine Fumarate 300 MG TABLET PO (20:07)
[2025-01-27] MEDS: Amitriptyline HCl 10 MG TABLET PO (20:07)
[2025-01-28] MEDS: Levothyroxine Sodium 125 MCG TABLET PO (05:22)
[2025-01-28 08:50] VITALS: BP 106/53; PULSE 79; RESP 16; TEMP 36.8; O2SAT 95
[2025-01-28] MEDS: amantadine HCL 100 MG CAPSULE PO ×2 (08:52→21:13)
[2025-01-28] MEDS: metFORMIN HCl 500 MG TABLET PO ×2 (08:52→18:08)
[2025-01-28] MEDS: lisinopriL 10 MG TABLET PO (08:52)
[2025-01-28] MEDS: Loratadine 10 MG TABLET PO (08:52)
[2025-01-28] MEDS: ARIPiprazole 20 MG TABLET PO (08:52)
[2025-01-28] MEDS: Docusate Sodium 100 MG CAPSULE PO ×2 (08:52→21:14)
[2025-01-28] MEDS: Benztropine Mesylate 0.5 MG TABLET PO ×2 (08:52→21:14)
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
[2025-01-28 12:47] LABS: Creatinine Clr Calc Pharmacy 40.5; Estimated Glomerular Filt Rate 56
[2025-01-28] MEDS: Magnesium Hydrox/Alum Hydrox 30 ML ORAL.SUSP PO ×2 (15:07→21:13)
[2025-01-28] MEDS: Amitriptyline HCl 10 MG TABLET PO (21:13)
[2025-01-28] MEDS: Atorvastatin Calcium 80 MG TABLET PO (21:14)
[2025-01-28] MEDS: QUEtiapine Fumarate 50 MG TABLET PO (21:14)
[2025-01-28] MEDS: QUEtiapine Fumarate 300 MG TABLET PO (21:15)
[2025-01-28] MEDS: lamoTRIgine 100 MG TABLET 200 MG PO (21:15)
[2025-01-29] VITALS (8 sets, daily range): BP systolic 81–173; BP diastolic 42–70; PULSE 71–98; RESP 16–18; TEMP 36.1–36.5; O2SAT 96–98
--- NOTE | 2025-01-29 01:23 | P.EN_ITS ---
Event Note Date of Service: 01/29/25 Event Note: Rapid response called for patient on [facility] psych floor due to a fall. The patient got up out of bed in the middle of the night and had a mechanical fall. She reports that she hit her head on the nightstand. No LOC, no laceration, no headache, no neurological deficits. neurologic exam and musculoskeletal exam normal. vital signs stable. Able to ambulate without difficulty or pain. She denies headache, dizziness, chest pain or shortness of breath. CT head and C- spine ordered. Time Spent With Patient Time: Total time managing care of this patient today ____ minutes.
[2025-01-29 01:26] LABS: Glucose, Whole Blood 96 mg/dL (60-115)
[2025-01-29] MEDS: traZODone HCL 50 MG TABLET PO (02:27)
[2025-01-29] MEDS: Magnesium Hydrox/Alum Hydrox 30 ML ORAL.SUSP PO ×2 (02:27→14:35)
--- NOTE | 2025-01-29 03:24 | PC.NURSE ---
Addendum entered by Kaden Feliciano RN 01/29/25 05:34: V/S Stable Original Note: On 01/29/2025 at 0105 patient had and unwitnessed fall in room 185-2, She reported she got out of bed, fell and hit her head on her night stand (left posterior) no laceration, bump, or head ache. Neurological and physical exam normal, patient able to move full range of motion and ambulate without pain, CT done, results pending.
[2025-01-29] MEDS: Levothyroxine Sodium 125 MCG TABLET PO (06:12)
[2025-01-29] MEDS: metFORMIN HCl 500 MG TABLET PO ×2 (08:29→16:47)
[2025-01-29] MEDS: Docusate Sodium 100 MG CAPSULE PO ×2 (08:30→21:43)
[2025-01-29] MEDS: ARIPiprazole 20 MG TABLET PO (08:30)
[2025-01-29] MEDS: amantadine HCL 100 MG CAPSULE PO ×2 (08:31→21:44)
[2025-01-29] MEDS: Loratadine 10 MG TABLET PO (08:31)
[2025-01-29] MEDS: Benztropine Mesylate 0.5 MG TABLET PO ×2 (08:31→21:43)
[2025-01-29] MEDS: Amitriptyline HCl 10 MG TABLET PO (21:43)
[2025-01-29] MEDS: Atorvastatin Calcium 80 MG TABLET PO (21:43)
[2025-01-29] MEDS: QUEtiapine Fumarate 50 MG TABLET PO (21:43)
[2025-01-29] MEDS: lamoTRIgine 100 MG TABLET 200 MG PO (21:44)
[2025-01-29] MEDS: QUEtiapine Fumarate 300 MG TABLET PO (21:44)
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
[2025-01-30] MEDS: Levothyroxine Sodium 125 MCG TABLET PO (06:21)
[2025-01-30 07:00] VITALS: BMI 20.4
[2025-01-30 08:00] VITALS: BP 111/60; PULSE 80; RESP 16; TEMP 36.6; O2SAT 97
[2025-01-30] MEDS: lisinopriL 10 MG TABLET PO (08:35)
[2025-01-30] MEDS: ARIPiprazole 20 MG TABLET PO (08:35)
[2025-01-30] MEDS: amantadine HCL 100 MG CAPSULE PO ×2 (08:35→20:55)
[2025-01-30] MEDS: metFORMIN HCl 500 MG TABLET PO ×2 (08:35→17:35)
[2025-01-30] MEDS: Docusate Sodium 100 MG CAPSULE PO ×2 (08:35→20:55)
[2025-01-30] MEDS: Loratadine 10 MG TABLET PO (08:35)
[2025-01-30] MEDS: Benztropine Mesylate 0.5 MG TABLET PO ×2 (08:35→20:55)
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
[2025-01-30] MEDS: Magnesium Hydrox/Alum Hydrox 30 ML ORAL.SUSP PO ×2 (12:09→20:56)
[2025-01-30 20:00] VITALS: BP 112/67; PULSE 81; RESP 16; TEMP 36.9; O2SAT 99
[2025-01-30] MEDS: QUEtiapine Fumarate 300 MG TABLET PO (20:55)
[2025-01-30] MEDS: QUEtiapine Fumarate 50 MG TABLET PO (20:55)
[2025-01-30] MEDS: Amitriptyline HCl 10 MG TABLET PO (20:55)
[2025-01-30] MEDS: Atorvastatin Calcium 80 MG TABLET PO (20:55)
[2025-01-30] MEDS: lamoTRIgine 100 MG TABLET 200 MG PO (20:55)
--- NOTE | 2025-01-31 | ECG_ITS ---
Test Reason : on seroquel abilify diabetic htn Blood Pressure : */* mmHG Vent. Rate : 73 BPM Atrial Rate : 73 BPM P-R Int : 224 ms QRS Dur : 90 ms QT Int : 392 ms P-R-T Axes : 43 14 62 degrees QTcB Int : 431 ms Sinus rhythm with 1st degree A-V block Otherwise normal ECG No previous ECGs available Referred By: Preet Mathis Electronically Signed By: Jonatan Bond
[2025-01-31] MEDS: Levothyroxine Sodium 125 MCG TABLET PO (05:40)
[2025-01-31] MEDS: ARIPiprazole 20 MG TABLET PO (09:15)
[2025-01-31] MEDS: Loratadine 10 MG TABLET PO (09:15)
[2025-01-31] MEDS: metFORMIN HCl 500 MG TABLET PO ×2 (09:15→16:19)
[2025-01-31 09:16] VITALS: BP 129/61; PULSE 86; RESP 18; TEMP 36.6; O2SAT 97
[2025-01-31] MEDS: amantadine HCL 100 MG CAPSULE PO (09:16)
[2025-01-31] MEDS: lisinopriL 10 MG TABLET PO (09:16)
[2025-01-31] MEDS: Benztropine Mesylate 0.5 MG TABLET PO ×2 (09:16→21:01)
[2025-01-31] MEDS: Docusate Sodium 100 MG CAPSULE PO ×2 (09:17→21:01)
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
[2025-01-31 10:53] LABS: TSH reflex Free T4 0.22 uIU/mL (0.32-4.0)
[2025-01-31 10:58] LABS: Erythrocyte Sedimentation Rate 42 MM/HR (0-20)
[2025-01-31 11:07] LABS: Folate 6.9 ng/mL (> or = 4.0); Vitamin B12 428 pg/mL (200-900)
[2025-01-31 11:48] LABS: Free T4 (Free Thyroxine) 1.25 ng/dL (0.71-1.85)
[2025-01-31] MEDS: Magnesium Hydrox/Alum Hydrox 30 ML ORAL.SUSP PO (16:19)
[2025-01-31 20:00] VITALS: BP 122/58; PULSE 76; RESP 16; TEMP 36.2; O2SAT 96
[2025-01-31] MEDS: OLANZapine 2.5 MG TABLET PO (21:01)
[2025-01-31] MEDS: Amitriptyline HCl 10 MG TABLET PO (21:01)
[2025-01-31] MEDS: QUEtiapine Fumarate 100 MG TABLET PO (21:01)
[2025-01-31] MEDS: Atorvastatin Calcium 80 MG TABLET PO (21:01)
[2025-01-31] MEDS: lamoTRIgine 100 MG TABLET 200 MG PO (21:03)
[2025-02-01] MEDS: Levothyroxine Sodium 125 MCG TABLET PO (05:53)
[2025-02-01 07:50] VITALS: BP 121/60; PULSE 74; RESP 18; TEMP 36.4; O2SAT 100
[2025-02-01] MEDS: lisinopriL 10 MG TABLET PO (08:58)
[2025-02-01] MEDS: Loratadine 10 MG TABLET PO (08:58)
[2025-02-01] MEDS: metFORMIN HCl 500 MG TABLET PO ×2 (08:58→16:12)
[2025-02-01] MEDS: amantadine HCL 100 MG CAPSULE PO (08:58)
[2025-02-01] MEDS: Docusate Sodium 100 MG CAPSULE PO ×2 (08:58→20:23)
[2025-02-01] MEDS: Benztropine Mesylate 0.5 MG TABLET PO ×2 (08:58→20:23)
[2025-02-01] MEDS: ARIPiprazole 20 MG TABLET PO (08:59)
[2025-02-01] MEDS: Magnesium Hydrox/Alum Hydrox 30 ML ORAL.SUSP PO (11:36)
[2025-02-01] MEDS: hydrOXYzine HCL 25 MG TABLET PO (16:14)
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
[2025-02-01 20:00] VITALS: BP 109/63; PULSE 83; RESP 16; TEMP 36.5; O2SAT 99
[2025-02-01] MEDS: Atorvastatin Calcium 80 MG TABLET PO (20:22)
[2025-02-01] MEDS: lamoTRIgine 100 MG TABLET 200 MG PO (20:23)
[2025-02-01] MEDS: QUEtiapine Fumarate 100 MG TABLET PO (20:23)
[2025-02-01] MEDS: Amitriptyline HCl 10 MG TABLET PO (20:23)
[2025-02-01] MEDS: OLANZapine 2.5 MG TABLET PO (20:23)
[2025-02-02] MEDS: Levothyroxine Sodium 125 MCG TABLET PO (05:20)
[2025-02-02 07:55] VITALS: BP 119/60; PULSE 72; RESP 18; TEMP 36.4; O2SAT 98
[2025-02-02] MEDS: Loratadine 10 MG TABLET PO (08:21)
[2025-02-02] MEDS: metFORMIN HCl 500 MG TABLET PO ×2 (08:21→16:34)
[2025-02-02] MEDS: lisinopriL 10 MG TABLET PO (08:21)
[2025-02-02] MEDS: Docusate Sodium 100 MG CAPSULE PO ×2 (08:22→20:33)
[2025-02-02] MEDS: Benztropine Mesylate 0.5 MG TABLET PO ×2 (08:22→20:34)
[2025-02-02] MEDS: amantadine HCL 100 MG CAPSULE PO (08:22)
[2025-02-02] MEDS: OLANZapine 2.5 MG TABLET PO ×2 (09:21→20:33)
[2025-02-02] MEDS: ARIPiprazole 15 MG TABLET PO (09:21)
[2025-02-02 20:00] VITALS: BP 136/60; PULSE 81; RESP 16; TEMP 36; O2SAT 98
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
[2025-02-02] MEDS: lamoTRIgine 100 MG TABLET 200 MG PO (20:33)
[2025-02-02] MEDS: Atorvastatin Calcium 80 MG TABLET PO (20:33)
[2025-02-02] MEDS: QUEtiapine Fumarate 100 MG TABLET PO (20:34)
[2025-02-02] MEDS: Amitriptyline HCl 10 MG TABLET PO (20:34)
[2025-02-02] MEDS: Magnesium Hydrox/Alum Hydrox 30 ML ORAL.SUSP PO (20:48)
[2025-02-03] MEDS: Levothyroxine Sodium 125 MCG TABLET PO (05:38)
[2025-02-03 08:00] VITALS: BP 134/63; PULSE 67; RESP 16; TEMP 36.9; O2SAT 96
[2025-02-03] MEDS: lisinopriL 10 MG TABLET PO (08:43)
[2025-02-03] MEDS: ARIPiprazole 15 MG TABLET PO (08:43)
[2025-02-03] MEDS: OLANZapine 2.5 MG TABLET PO (08:43)
[2025-02-03] MEDS: Docusate Sodium 100 MG CAPSULE PO ×2 (08:43→21:13)
[2025-02-03] MEDS: Loratadine 10 MG TABLET PO (08:43)
[2025-02-03] MEDS: amantadine HCL 100 MG CAPSULE PO (08:43)
[2025-02-03] MEDS: Benztropine Mesylate 0.5 MG TABLET PO ×2 (08:43→21:12)
[2025-02-03] MEDS: metFORMIN HCl 500 MG TABLET PO ×2 (08:44→17:55)
[2025-02-03] MEDS: Acetaminophen 325 MG TABLET 650 MG PO ×2 (09:58→21:13)
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
[2025-02-03 20:00] VITALS: BP 120/59; PULSE 70; RESP 17; TEMP 36.2; O2SAT 100
[2025-02-03] MEDS: Atorvastatin Calcium 80 MG TABLET PO (21:12)
[2025-02-03] MEDS: Amitriptyline HCl 10 MG TABLET PO (21:12)
[2025-02-03] MEDS: lamoTRIgine 100 MG TABLET 200 MG PO (21:13)
[2025-02-03] MEDS: OLANZapine 5 MG TABLET PO (21:13)
[2025-02-04] MEDS: Levothyroxine Sodium 125 MCG TABLET PO (06:05)
[2025-02-04 07:55] VITALS: BP 148/68; PULSE 62; RESP 18; TEMP 36.8; O2SAT 97
[2025-02-04] MEDS: amantadine HCL 100 MG CAPSULE PO ×2 (08:36→20:04)
[2025-02-04] MEDS: Loratadine 10 MG TABLET PO (08:36)
[2025-02-04] MEDS: lisinopriL 10 MG TABLET PO (08:36)
[2025-02-04] MEDS: metFORMIN HCl 500 MG TABLET PO ×2 (08:36→16:19)
[2025-02-04] MEDS: Benztropine Mesylate 0.5 MG TABLET PO ×2 (08:36→20:04)
[2025-02-04] MEDS: Docusate Sodium 100 MG CAPSULE PO ×2 (08:37→20:04)
[2025-02-04] MEDS: ARIPiprazole 15 MG TABLET PO (08:37)
[2025-02-04 08:53] LABS: Creatinine Clr Calc Pharmacy 55.8; Estimated Glomerular Filt Rate > 60
[2025-02-04] MEDS: OLANZapine 5 MG TABLET PO ×2 (12:26→20:05)
[2025-02-04] MEDS: Acetaminophen 325 MG TABLET 650 MG PO (16:21)
[2025-02-04 20:00] VITALS: BP 145/64; PULSE 100; RESP 18; TEMP 36.3; O2SAT 95
[2025-02-04] MEDS: lamoTRIgine 100 MG TABLET 200 MG PO (20:04)
[2025-02-04] MEDS: Amitriptyline HCl 10 MG TABLET PO (20:04)
[2025-02-04] MEDS: Atorvastatin Calcium 80 MG TABLET PO (20:04)
[2025-02-04] MEDS: hydrOXYzine HCL 25 MG TABLET PO (20:05)
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
[2025-02-05] MEDS: Levothyroxine Sodium 125 MCG TABLET PO (05:54)
[2025-02-05 08:00] VITALS: BP 123/61; PULSE 64; RESP 18; TEMP 36.4; O2SAT 97
[2025-02-05] MEDS: Benztropine Mesylate 0.5 MG TABLET PO ×2 (08:33→21:07)
[2025-02-05] MEDS: ARIPiprazole 15 MG TABLET PO (08:33)
[2025-02-05] MEDS: lisinopriL 10 MG TABLET PO (08:33)
[2025-02-05] MEDS: metFORMIN HCl 500 MG TABLET PO ×2 (08:33→15:56)
[2025-02-05] MEDS: Loratadine 10 MG TABLET PO (08:33)
[2025-02-05] MEDS: Docusate Sodium 100 MG CAPSULE PO ×2 (08:33→21:07)
[2025-02-05] MEDS: amantadine HCL 100 MG CAPSULE PO ×2 (08:33→21:07)
[2025-02-05 12:53] LABS: Vitamin D 25-OH, D2 <4 ng/mL; Vitamin D 25-OH, D3 28 ng/mL; Vitamin D 25-OH, Total 28 ng/mL (30-100)
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
[2025-02-05 20:00] VITALS: BP 145/65; PULSE 89; RESP 18; TEMP 36.1; O2SAT 98
[2025-02-05] MEDS: Atorvastatin Calcium 80 MG TABLET PO (21:07)
[2025-02-05] MEDS: lamoTRIgine 100 MG TABLET 200 MG PO (21:07)
[2025-02-05] MEDS: OLANZapine 10 MG TABLET PO (21:07)
[2025-02-05] MEDS: Amitriptyline HCl 10 MG TABLET PO (21:07)
[2025-02-06] MEDS: Levothyroxine Sodium 125 MCG TABLET PO (05:59)
[2025-02-06 08:55] VITALS: BP 148/62; PULSE 86; RESP 18; TEMP 36.8; O2SAT 99
[2025-02-06] MEDS: amantadine HCL 100 MG CAPSULE PO ×2 (08:58→20:40)
[2025-02-06] MEDS: metFORMIN HCl 500 MG TABLET PO (08:58)
[2025-02-06 08:59] VITALS: BP 148/62
[2025-02-06] MEDS: lisinopriL 10 MG TABLET PO (08:59)
[2025-02-06] MEDS: ARIPiprazole 15 MG TABLET PO (08:59)
[2025-02-06] MEDS: Loratadine 10 MG TABLET PO (08:59)
[2025-02-06] MEDS: Docusate Sodium 100 MG CAPSULE PO ×2 (08:59→20:40)
[2025-02-06] MEDS: Benztropine Mesylate 0.5 MG TABLET PO ×2 (09:00→20:40)
[2025-02-06 09:15] VITALS: BMI 19.6
[2025-02-06 20:00] VITALS: BP 145/62; PULSE 77; RESP 17; TEMP 36.3; O2SAT 98
[2025-02-06] MEDS: OLANZapine 10 MG TABLET PO (20:40)
[2025-02-06] MEDS: lamoTRIgine 100 MG TABLET 200 MG PO (20:40)
[2025-02-06] MEDS: Atorvastatin Calcium 80 MG TABLET PO (20:40)
[2025-02-06] MEDS: Amitriptyline HCl 10 MG TABLET PO (20:40)
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
[2025-02-07] MEDS: Levothyroxine Sodium 125 MCG TABLET PO (06:09)
[2025-02-07 08:00] VITALS: BP 109/53; PULSE 77; RESP 18; TEMP 36.3; O2SAT 96
[2025-02-07] MEDS: Docusate Sodium 100 MG CAPSULE PO ×2 (08:55→20:08)
[2025-02-07] MEDS: lisinopriL 10 MG TABLET PO (08:55)
[2025-02-07] MEDS: Loratadine 10 MG TABLET PO (08:56)
[2025-02-07] MEDS: amantadine HCL 100 MG CAPSULE PO ×2 (08:56→20:08)
[2025-02-07] MEDS: Benztropine Mesylate 0.5 MG TABLET PO ×2 (08:56→20:08)
[2025-02-07] MEDS: metFORMIN HCl 500 MG TABLET PO ×2 (08:57→20:08)
[2025-02-07] MEDS: ARIPiprazole 15 MG TABLET PO (08:57)
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
[2025-02-07 19:35] VITALS: BP 108/50; PULSE 70; RESP 16; TEMP 36.6; O2SAT 99
[2025-02-07] MEDS: lamoTRIgine 100 MG TABLET 200 MG PO (20:08)
[2025-02-07] MEDS: Amitriptyline HCl 10 MG TABLET PO (20:08)
[2025-02-07] MEDS: Atorvastatin Calcium 80 MG TABLET PO (20:08)
[2025-02-07] MEDS: OLANZapine 7.5 MG TABLET 15 MG PO (20:09)
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
[2025-02-08] MEDS: Levothyroxine Sodium 125 MCG TABLET PO (05:12)
[2025-02-08 08:00] VITALS: BP 110/63; PULSE 80; RESP 18; TEMP 36.4; O2SAT 99
[2025-02-08] MEDS: metFORMIN HCl 500 MG TABLET PO ×2 (08:23→17:33)
[2025-02-08] MEDS: Docusate Sodium 100 MG CAPSULE PO ×2 (08:23→19:47)
[2025-02-08] MEDS: Benztropine Mesylate 0.5 MG TABLET PO ×2 (08:23→19:46)
[2025-02-08] MEDS: Loratadine 10 MG TABLET PO (08:23)
[2025-02-08] MEDS: lisinopriL 10 MG TABLET PO (08:24)
[2025-02-08] MEDS: amantadine HCL 100 MG CAPSULE PO ×2 (08:24→19:47)
[2025-02-08] MEDS: ARIPiprazole 20 MG TABLET PO (08:24)
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
[2025-02-08] MEDS: Acetaminophen 325 MG TABLET 650 MG PO (14:16)
[2025-02-08] MEDS: LORazepam 0.5 MG TABLET PO (14:17)
[2025-02-08 19:43] VITALS: BP 109/56; PULSE 67; RESP 16; TEMP 36.5; O2SAT 99
[2025-02-08] MEDS: OLANZapine 7.5 MG TABLET 15 MG PO (19:46)
[2025-02-08] MEDS: lamoTRIgine 100 MG TABLET 200 MG PO (19:46)
[2025-02-08] MEDS: Atorvastatin Calcium 80 MG TABLET PO (19:46)
[2025-02-08] MEDS: Amitriptyline HCl 10 MG TABLET PO (19:47)
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
[2025-02-09] MEDS: Levothyroxine Sodium 125 MCG TABLET PO (05:07)
--- NOTE | 2025-02-09 08:40 | HO.PSYCHPN ---
Subjective Subjective Date of Service: 02/09/25 Reason For Visit: other specified schizophrenia spectrum Subjective Notes: Conditional Voluntary Interim History: Patient was seen and discussed in rounds today. Records and plans were reviewed. She continues to be quite psychotic and was agitated and extremely anxious yesterday afternoon and Ativan 0.5 mg was extremely helpful. I will order that as b.i.d. p.r.n.. Compliant for the most part. No other complaints or side effects. No other changes were made today Review of Systems Review of Systems Anxiety Yes all other systems are reviewed and are negative Mental Status Exam Mental Status Exam Narrative: Patient not overly fatigued more active and engaged still has floridly intrusive psychotic preoccupation with delusions related to a neighbor whom she feels is stalking her here Patient Appearance: Well Grooomed Patient Orientation: Person, Place and Situation Level of Consciousness: Awake Patient Behavior: Appropriate Mood Description: Withdrawn and Anxious Affect Description: Constricted Memory Description: Remote Impaired and Episodic Impaired Hallucinations: Auditory Delusions: Paranoid Ideation Thought Process: Rumination Thought Content: positive for Goal Oriented, negative for Suicidal Ideation or negative for Homicidal Ideation Depressive Symptoms: Increased Anxiety Judgement and Insight: Patient continues to be irritable dysphoric significantly psychotically preoccupied Diagnostics Vital Signs (24Hr): Vital Signs - 24 hr 02/08/25 19:43 Temperature 97.7 F Pulse Rate 67 Respiratory Rate 16 Blood Pressure 109/56 L Pulse Oximetry 99 Oxygen Delivery Method Room Air BMI result Body Mass Index 19.6 Labs 02/04/25 08:31 Imaging Radiology Impressions: ITS Impressions Thyroid Ultrasound 01/22/25 09:21 IMPRESSION: ACR TI RADS 0. Normal thyroid. ACR TI-RADS RECOMMENDATION REFERENCE: Ultrasound-guided fine-needle aspiration, followup ultrasound, no further follow up. * TR1 (0 point) and TR2 (2 points): No FNA or follow up. * TR3 (3 points): FNA if more than or equal to 2.5 cm in maximum dimension, followup ultrasound in 1, 3 and 5 years if 1.5 to 2.4 cm in maximum dimension. * TR4 (4-6 points): FNA if more than or equal to 1.5 cm in maximum dimension, followup ultrasound in 1, 2, 3 and 5 years if 1 to 1.4 cm in maximum dimension. * TR5 (more than or equal to 7 points): FNA if more than or equal to 1 cm in maximum dimension, followup ultrasound every year for 5 years if 0.5 to 0.9 cm in maximum dimension. * TR3, TR4 or TR5 nodules that are below the size threshold for followup receive no follow up. Electronically signed by: Juan Rosenberg MD 01/22/2025 10:02 AM EDT Medications Medications Current Medications Acetaminophen (Acetaminophen 325 Mg Tablet) 650 mg PO Q6H PRN PRN Reason: Headache/Pain, Scale 1-10 Last Admin: 02/08/25 14:16 Dose: 650 mg Al Hydroxide/Mg Hydroxide (Magnesium Hydrox/Alum Hydrox 30 Ml Oral.Susp) 30 ml PO Q6H PRN PRN Reason: Heartburn/Nausea Last Admin: 02/02/25 20:48 Dose: 30 ml Amantadine HCl (Amantadine Hcl 100 Mg Capsule) 100 mg PO BID [facility] Last Admin: 02/08/25 19:47 Dose: 100 mg Amitriptyline HCl (Amitriptyline Hcl 10 Mg Tablet) 10 mg PO BEDTIME [facility] Last Admin: 02/08/25 19:47 Dose: 10 mg Aripiprazole (Aripiprazole 20 Mg Tablet) 20 mg PO DAILY [facility] Last Admin: 02/08/25 08:24 Dose: 20 mg Atorvastatin Calcium (Atorvastatin Calcium 80 Mg Tablet) 80 mg PO BEDTIME [facility] Last Admin: 02/08/25 19:46 Dose: 80 mg Benztropine Mesylate (Benztropine Mesylate 0.5 Mg Tablet) 0.5 mg PO BID [facility] Last Admin: 02/08/25 19:46 Dose: 0.5 mg Docusate Sodium (Docusate Sodium 100 Mg Capsule) 100 mg PO BID [facility] Last Admin: 02/08/25 19:47 Dose: 100 mg Hydroxyzine HCl (Hydroxyzine Hcl 25 Mg Tablet) 25 mg PO Q6H PRN PRN Reason: mild anxiety Last Admin: 02/04/25 20:05 Dose: 25 mg Lamotrigine (Lamotrigine 100 Mg Tablet) 200 mg PO BEDTIME [facility] Last Admin: 02/08/25 19:46 Dose: 200 mg Levalbuterol HCl (Levalbuterol Hcl 1.25 Mg/3 Ml Vial.Neb) 1.25 mg INHALE Q4H PRN PRN Reason: Wheezing Levothyroxine Sodium (Levothyroxine Sodium 125 Mcg Tablet) 125 mcg PO DAILY@0600 [facility] Last Admin: 02/09/25 05:07 Dose: 125 mcg Lisinopril (Lisinopril 10 Mg Tablet) 10 mg PO DAILY [facility]; Protocol Last Admin: 02/08/25 08:24 Dose: 10 mg Loratadine (Loratadine 10 Mg Tablet) 10 mg PO DAILY [facility] Last Admin: 02/08/25 08:23 Dose: 10 mg Magnesium Hydroxide (Milk Of Magnesia 30 Ml Oral.Susp) 30 ml PO DAILY PRN PRN Reason: Constipation Metformin HCl (Metformin Hcl 500 Mg Tablet) 500 mg PO BIDWM [facility] Last Admin: 02/08/25 17:33 Dose: 500 mg Nicotine (Nicotine 21 Mg Patch.Td24) 21 mg TRANSDERMA DAILY PRN PRN Reason: smoking cessation Nicotine Polacrilex (Nicotine Polacrilex 2 Mg Gum) 4 mg BUCCAL Q2H PRN PRN Reason: Nicotine Cravings Olanzapine (Olanzapine 7.5 Mg Tablet) 15 mg PO BEDTIME [facility] Last Admin: 02/08/25 19:46 Dose: 15 mg Allergies Allergies Allergy/AdvReac Type Severity Reaction Status Date / Time Seasonal Allergies Allergy Nasal Verified 01/21/25 16:35 congestion Assessment & Plan Assessment & Plan (1) COPD (chronic obstructive pulmonary disease): Qualifiers: COPD type: chronic bronchitis Chronic bronchitis type: simple Qualified Code(s): J41.0 - Simple chronic bronchitis Status: Acute Code(s): J44.9 - Chronic obstructive pulmonary disease, unspecified (2) Tobacco dependence: Status: Acute Code(s): F17.200 - Nicotine dependence, unspecified, uncomplicated Plan The patient likely has air trapping for the COPD. If she gets anxious or if she is dyspneic, she will likely have worsening air trapping making her breathing worse. Currently, she is well. start short acting beta agonist as needed Tobacco cessation Outpt PFTs/CXR Maybe a candidate for the Lung cancer screening program as an outpt 02/09: Continue current plans and regimen. Added Ativan 0.5 mg b.i.d. p.r.n. Patient educated on: medication risk/benefits Reason for continued inpatient stay Substantial Risk for: med/psych decompensation Time Spent With Patient Time: Total time managing care of this patient today ____ minutes.
[2025-02-09] MEDS: Docusate Sodium 100 MG CAPSULE PO ×2 (08:45→20:20)
[2025-02-09] MEDS: Loratadine 10 MG TABLET PO (08:45)
[2025-02-09] MEDS: metFORMIN HCl 500 MG TABLET PO ×2 (08:45→17:00)
[2025-02-09] MEDS: lisinopriL 10 MG TABLET PO (08:45)
[2025-02-09] MEDS: amantadine HCL 100 MG CAPSULE PO ×2 (08:45→20:20)
[2025-02-09] MEDS: Benztropine Mesylate 0.5 MG TABLET PO ×2 (08:45→20:20)
[2025-02-09] MEDS: ARIPiprazole 20 MG TABLET PO (08:59)
[2025-02-09 11:07] VITALS: BP 109/62; PULSE 67; RESP 18; TEMP 36.6; O2SAT 98
[2025-02-09] MEDS: LORazepam 0.5 MG TABLET PO (15:19)
[2025-02-09] MEDS: Acetaminophen 325 MG TABLET 650 MG PO (18:21)
[2025-02-09 19:58] VITALS: BP 118/53; PULSE 84; RESP 16; TEMP 36.4; O2SAT 97
[2025-02-09] MEDS: Atorvastatin Calcium 80 MG TABLET PO (20:20)
[2025-02-09] MEDS: lamoTRIgine 100 MG TABLET 200 MG PO (20:20)
[2025-02-09] MEDS: Amitriptyline HCl 10 MG TABLET PO (20:20)
[2025-02-09] MEDS: OLANZapine 7.5 MG TABLET 15 MG PO (20:20)
[2025-02-10] MEDS: Levothyroxine Sodium 125 MCG TABLET PO (05:51)
[2025-02-10 08:26] VITALS: BP 122/56; PULSE 77; RESP 16; TEMP 35.9; O2SAT 96
[2025-02-10] MEDS: amantadine HCL 100 MG CAPSULE PO ×2 (08:29→20:24)
[2025-02-10] MEDS: metFORMIN HCl 500 MG TABLET PO ×2 (08:30→16:29)
[2025-02-10] MEDS: ARIPiprazole 20 MG TABLET PO (08:30)
[2025-02-10] MEDS: Benztropine Mesylate 0.5 MG TABLET PO ×2 (08:30→20:24)
[2025-02-10] MEDS: Loratadine 10 MG TABLET PO (08:31)
[2025-02-10] MEDS: Docusate Sodium 100 MG CAPSULE PO ×2 (08:31→20:24)
[2025-02-10] MEDS: lisinopriL 10 MG TABLET PO (08:31)
--- NOTE | 2025-02-10 09:00 | CA_ITS ---
Transthoracic Echocardiogram Patient (Last, First, Middle): Tatum Fine, Gender: Female Date of : 1950 Age: 74 Procedure Date: 02/10/2025 Procedure Type: Transthoracic Echocardiogram Location: S3E Height: 160.02 cm Weight: 49.9 kg BSA: 1.50 m2 Heart Rate: 63 bpm BP: 122 / 56 mmHg Criminal Justice Social Worker: SB Referring MD: Preet Mathis MD Symptoms: inc sob hx valvular disease /repair patent ductus Study Quality: Adequate ECG Rhythm: Sinus Conclusions: - The left ventricular systolic function is normal. The visually estimated ejection fraction is between 50-55%. - No obvious valvular pathology seen on this study. Findings Left Ventricle Normal left ventricular cavity size. There is normal left ventricular wall thickness. The left ventricular systolic function is normal. The visually estimated ejection fraction is between 50-55%. There is no evidence of regional wall motion abnormalities. Diastolic function is normal for age. Right Ventricle Normal right ventricular cavity size. There is low normal right ventricular systolic function. Atria Both atria are normal in size. Aortic Valve There is a normal trileaflet aortic valve. There is mild calcification of the aortic valve. There is no aortic valve stenosis. There is no aortic valve regurgitation. Mitral Valve The mitral valve appears normal. There is no mitral valve regurgitation. There is no mitral valve stenosis. Pulmonic Valve The pulmonic valve is likely normal. Tricuspid Valve There is no tricuspid valve regurgitation. Tricuspid regurgitation envelope is inadequate for calculation of right ventricular systolic pressure. Great Vessels The asc aorta is normal in size. Venous The inferior vena cava is normal in size and collapses less than 50% with inspiration. Pericardium/Pleural There is no evidence of pericardial effusion. Prior Study Comparison No prior study available for comparison. Recommendations, Care & Conclusions No obvious valvular pathology seen on this study. Measurements 2D Linear Measurements IVSd: 0.77 0.6-0.9/0.6-1.0 cm LVIDd: 4.32 3.9-5.3/4.2-5.9 cm LVIDd Index: 2.88 2.4-3.2/2.2-3.1 cm/m2 LVIDs: 2.85 2.0-3.6 cm LVPWd: 0.57 0.7-1.1 cm LA Diam: 3.30 2.7-3.8/3.0-4.0 cm LAIDs Index: 2.20 1.5-2.3 cm/m2 LV Mass: 104.23 67-162/88-224 g LV Mass Index: 69.49 43-95/49-115 g/m2 LVOT Diam: 2.00 3.0+(-)1.3 cm 2D Systolic Function EF 4C: 55.00 >55% EF 2C: 64.90 >55% EF BiP: 59.20 >55% Mitral Valve MV Pk E: 0.79 MV PK A: 0.97 MV Decel Time: 242.00 E/A: 0.80 E'Lateral: 10.00 E'Medial: 5.55 E/E' Med: 14.20 E/E' Lat: 7.90 PHT: 71.00 MVA PHT: 3.10 Decel Warren: 3.26 Aortic Valve AoV Pk Adan: 1.22 AoV Pk Grad: 6.00 JOHN: 2.18 LVOT LVOT Pk Adan: 0.77 LVOT Mn Adan: 0.62 LVOT VTI: 0.17 LVOT Pk Grad: 2.00 LVOT Mn Grad: 2.00 LVOT Diam: 2.00 LVOT Area: 3.14 Diastolic Function MV Pk E: 0.79 MV Pk A: 0.97 E/A: 0.80 E'Medial: 5.55 E/E' Med: 14.20 E' Laterial: 10.00 E/E' Lat: 7.90 Right Ventricle TAPSE (mm): 13.80 TVS' Adan: 10.00 Tricuspid Valve RA Press: 3.00 Great Vessels Aorta Sinus of Valsalva: 2.70 2.0-3.5 cm Ao Asc: 2.40 2.1-3.4 cm Pulmonary Veins Pulm Vein S/D 1.50 Pulmonary Valve PV Pk Adan: 0.92 Peak PV Grad: 3.00 Updated in Other Vendor System with Status of Final Sloan Stewart MD electronically signed on 02/11/2025 10:20:46 AM with status of Final
--- NOTE | 2025-02-10 14:41 | HO.PSYCHPN ---
Subjective Subjective Date of Service: 02/10/25 Reason For Visit: other specified schizophrenia spectrum Interim History: Met with patient; discussed with team; reviewed chart Patient said she wants to go home... Says I feel good and I want to go home.. Today patient got anxious when learning she needed to get an echocardiogram; in her anxiety, she started yelling out saying Cecilia go ahead and tell them all my medical issues... Patient's daughter present who said that this is patient's downstairs neighbor whom she is paranoid about Mental Status Exam Mental Status Exam Narrative: Remains with psychotic preoccupation/delusions and/or AH related to a neighbor whom she feels is present and bothering her. Patient Appearance: Well Grooomed Patient Orientation: Person, Place and Situation (Somewhat) Level of Consciousness: Awake Patient Behavior: Appropriate Mood Description: Anxious Affect Description: Constricted Ability to Follow Directions: Fair Memory Description: Remote Impaired and Episodic Impaired Hallucinations: Auditory Delusions: Paranoid Ideation Thought Process: Rumination Thought Content: positive for Goal Oriented, negative for Suicidal Ideation or negative for Homicidal Ideation Depressive Symptoms: Increased Anxiety Judgement and Insight: Impaired. Diagnostics Vital Signs (24Hr): Vital Signs - 24 hr 02/09/25 19:58 02/10/25 08:26 Temperature 97.5 F 96.7 F L Pulse Rate 84 77 Respiratory Rate 16 16 Blood Pressure 118/53 L 122/56 L Pulse Oximetry 97 96 Oxygen Delivery Method Room Air Room Air BMI result Body Mass Index 19.6 Labs 02/04/25 08:31 Imaging Radiology Impressions: ITS Impressions Thyroid Ultrasound 01/22/25 09:21 IMPRESSION: ACR TI RADS 0. Normal thyroid. ACR TI-RADS RECOMMENDATION REFERENCE: Ultrasound-guided fine-needle aspiration, followup ultrasound, no further follow up. * TR1 (0 point) and TR2 (2 points): No FNA or follow up. * TR3 (3 points): FNA if more than or equal to 2.5 cm in maximum dimension, followup ultrasound in 1, 3 and 5 years if 1.5 to 2.4 cm in maximum dimension. * TR4 (4-6 points): FNA if more than or equal to 1.5 cm in maximum dimension, followup ultrasound in 1, 2, 3 and 5 years if 1 to 1.4 cm in maximum dimension. * TR5 (more than or equal to 7 points): FNA if more than or equal to 1 cm in maximum dimension, followup ultrasound every year for 5 years if 0.5 to 0.9 cm in maximum dimension. * TR3, TR4 or TR5 nodules that are below the size threshold for followup receive no follow up. Electronically signed by: Juan Rosenberg MD 01/22/2025 10:02 AM EDT Medications Medications Current Medications Acetaminophen (Acetaminophen 325 Mg Tablet) 650 mg PO Q6H PRN PRN Reason: Headache/Pain, Scale 1-10 Last Admin: 02/09/25 18:21 Dose: 650 mg Al Hydroxide/Mg Hydroxide (Magnesium Hydrox/Alum Hydrox 30 Ml Oral.Susp) 30 ml PO Q6H PRN PRN Reason: Heartburn/Nausea Last Admin: 02/02/25 20:48 Dose: 30 ml Amantadine HCl (Amantadine Hcl 100 Mg Capsule) 100 mg PO BID [facility] Last Admin: 02/10/25 08:29 Dose: 100 mg Amitriptyline HCl (Amitriptyline Hcl 10 Mg Tablet) 10 mg PO BEDTIME [facility] Last Admin: 02/09/25 20:20 Dose: 10 mg Aripiprazole (Aripiprazole 20 Mg Tablet) 20 mg PO DAILY [facility] Last Admin: 02/10/25 08:30 Dose: 20 mg Atorvastatin Calcium (Atorvastatin Calcium 80 Mg Tablet) 80 mg PO BEDTIME [facility] Last Admin: 02/09/25 20:20 Dose: 80 mg Benztropine Mesylate (Benztropine Mesylate 0.5 Mg Tablet) 0.5 mg PO BID [facility] Last Admin: 02/10/25 08:30 Dose: 0.5 mg Docusate Sodium (Docusate Sodium 100 Mg Capsule) 100 mg PO BID [facility] Last Admin: 02/10/25 08:31 Dose: 100 mg Hydroxyzine HCl (Hydroxyzine Hcl 25 Mg Tablet) 25 mg PO Q6H PRN PRN Reason: mild anxiety Last Admin: 02/04/25 20:05 Dose: 25 mg Lamotrigine (Lamotrigine 100 Mg Tablet) 200 mg PO BEDTIME [facility] Last Admin: 02/09/25 20:20 Dose: 200 mg Levalbuterol HCl (Levalbuterol Hcl 1.25 Mg/3 Ml Vial.Neb) 1.25 mg INHALE Q4H PRN PRN Reason: Wheezing Levothyroxine Sodium (Levothyroxine Sodium 125 Mcg Tablet) 125 mcg PO DAILY@0600 [facility] Last Admin: 02/10/25 05:51 Dose: 125 mcg Lisinopril (Lisinopril 10 Mg Tablet) 10 mg PO DAILY [facility]; Protocol Last Admin: 02/10/25 08:31 Dose: 10 mg Loratadine (Loratadine 10 Mg Tablet) 10 mg PO DAILY [facility] Last Admin: 02/10/25 08:31 Dose: 10 mg Lorazepam (Lorazepam 0.5 Mg Tablet) 0.5 mg PO BID PRN PRN Reason: anxiety/restlessness Last Admin: 02/09/25 15:19 Dose: 0.5 mg Magnesium Hydroxide (Milk Of Magnesia 30 Ml Oral.Susp) 30 ml PO DAILY PRN PRN Reason: Constipation Metformin HCl (Metformin Hcl 500 Mg Tablet) 500 mg PO BIDWM [facility] Last Admin: 02/10/25 08:30 Dose: 500 mg Nicotine (Nicotine 21 Mg Patch.Td24) 21 mg TRANSDERMA DAILY PRN PRN Reason: smoking cessation Nicotine Polacrilex (Nicotine Polacrilex 2 Mg Gum) 4 mg BUCCAL Q2H PRN PRN Reason: Nicotine Cravings Olanzapine (Olanzapine 7.5 Mg Tablet) 15 mg PO BEDTIME [facility] Last Admin: 02/09/25 20:20 Dose: 15 mg Allergies Allergies Allergy/AdvReac Type Severity Reaction Status Date / Time Seasonal Allergies Allergy Nasal Verified 01/21/25 16:35 congestion Assessment & Plan Assessment & Plan (1) COPD (chronic obstructive pulmonary disease): Qualifiers: COPD type: chronic bronchitis Chronic bronchitis type: simple Qualified Code(s): J41.0 - Simple chronic bronchitis Status: Acute Code(s): J44.9 - Chronic obstructive pulmonary disease, unspecified (2) Tobacco dependence: Status: Acute Code(s): F17.200 - Nicotine dependence, unspecified, uncomplicated Plan The patient likely has air trapping for the COPD. If she gets anxious or if she is dyspneic, she will likely have worsening air trapping making her breathing worse. Currently, she is well. start short acting beta agonist as needed Tobacco cessation Outpt PFTs/CXR Maybe a candidate for the Lung cancer screening program as an outpt 02/09: Continue current plans and regimen. Added Ativan 0.5 mg b.i.d. p.r.n. 02/10 Patient said she wants to go home... Says I feel good and I want to go home.. Today patient got anxious when learning she needed to get an echocardiogram; in her anxiety, she started yelling out saying Cecilia go ahead and tell them all my medical issues... Patient's daughter present who said that this is patient's downstairs neighbor whom she is paranoid about Patient educated on: diagnosis Informed Consent: does not understand Reason for continued inpatient stay Substantial Risk for: inability to function Time Spent With Patient Time: Total time managing care of this patient today ____ minutes.
[2025-02-10] MEDS: LORazepam 0.5 MG TABLET PO (17:53)
[2025-02-10 20:00] VITALS: BP 127/58; PULSE 90; TEMP 36.4; O2SAT 100
[2025-02-10] MEDS: OLANZapine 7.5 MG TABLET 15 MG PO (20:23)
[2025-02-10] MEDS: lamoTRIgine 100 MG TABLET 200 MG PO (20:24)
[2025-02-10] MEDS: Atorvastatin Calcium 80 MG TABLET PO (20:24)
[2025-02-10] MEDS: Amitriptyline HCl 10 MG TABLET PO (20:25)
[2025-02-10] MEDS: Magnesium Hydrox/Alum Hydrox 30 ML ORAL.SUSP PO (20:27)
[2025-02-11] MEDS: LORazepam 0.5 MG TABLET PO ×2 (01:06→12:43)
[2025-02-11] MEDS: Levothyroxine Sodium 125 MCG TABLET PO (06:21)
[2025-02-11 08:08] LABS: Creatinine Clr Calc Pharmacy 52.8; Estimated Glomerular Filt Rate > 60
[2025-02-11] MEDS: metFORMIN HCl 500 MG TABLET PO ×2 (08:17→16:07)
[2025-02-11] MEDS: Loratadine 10 MG TABLET PO (08:18)
[2025-02-11] MEDS: Docusate Sodium 100 MG CAPSULE PO ×2 (08:18→20:40)
[2025-02-11] MEDS: amantadine HCL 100 MG CAPSULE PO ×2 (08:18→20:40)
[2025-02-11] MEDS: ARIPiprazole 20 MG TABLET PO (08:19)
[2025-02-11] MEDS: Benztropine Mesylate 0.5 MG TABLET PO ×2 (08:19→20:40)
[2025-02-11 08:22] VITALS: BP 112/56; PULSE 73; RESP 16; TEMP 35.7; O2SAT 98
[2025-02-11] MEDS: lisinopriL 10 MG TABLET PO (08:22)
--- NOTE | 2025-02-11 10:18 | P.PNPSI_ITS ---
Subjective Subjective Date of Service: 02/11/25 Reason For Visit: other specified schizophrenia spectrum Subjective Notes: Conditional Voluntary Interim History: Patient seen in psychiatric follow-up case reviewed in treatment team chart reviewed patient seen. Patient's case discussed with primary care there was a question of a liver mass a year ago. Patient does have some abdominal complaints. Olanzapine has been increased patient remains delusional thinking she is going for surgery hearing people chatter about her perhaps some less level of agitation. Patient's history also reviewed with her psychiatric nurse practitioner Medication Compliance: Yes Diagnostics Vital Signs (24Hr): Vital Signs - 24 hr 02/10/25 20:00 02/11/25 08:22 Temperature 97.5 F 96.2 F L Pulse Rate 90 73 Respiratory Rate 16 Blood Pressure 127/58 L 112/56 L Pulse Oximetry 100 98 Oxygen Delivery Method Room Air Room Air BMI result Body Mass Index 19.6 Labs 02/12/25 07:47 02/12/25 07:47 Labs: Laboratory Results - last 48 hr 02/11/25 07:46 Creatinine 0.75 Estim Creat Clear Calc 52.8 Estimated GFR > 60 Imaging Radiology Impressions: ITS Impressions Thyroid Ultrasound 01/22/25 09:21 IMPRESSION: ACR TI RADS 0. Normal thyroid. ACR TI-RADS RECOMMENDATION REFERENCE: Ultrasound-guided fine-needle aspiration, followup ultrasound, no further follow up. * TR1 (0 point) and TR2 (2 points): No FNA or follow up. * TR3 (3 points): FNA if more than or equal to 2.5 cm in maximum dimension, followup ultrasound in 1, 3 and 5 years if 1.5 to 2.4 cm in maximum dimension. * TR4 (4-6 points): FNA if more than or equal to 1.5 cm in maximum dimension, followup ultrasound in 1, 2, 3 and 5 years if 1 to 1.4 cm in maximum dimension. * TR5 (more than or equal to 7 points): FNA if more than or equal to 1 cm in maximum dimension, followup ultrasound every year for 5 years if 0.5 to 0.9 cm in maximum dimension. * TR3, TR4 or TR5 nodules that are below the size threshold for followup receive no follow up. Electronically signed by: Juan Rosenberg MD 01/22/2025 10:02 AM EDT Medications Medications Current Medications Acetaminophen (Acetaminophen 325 Mg Tablet) 650 mg PO Q6H PRN PRN Reason: Headache/Pain, Scale 1-10 Last Admin: 02/09/25 18:21 Dose: 650 mg Al Hydroxide/Mg Hydroxide (Magnesium Hydrox/Alum Hydrox 30 Ml Oral.Susp) 30 ml PO Q6H PRN PRN Reason: Heartburn/Nausea Last Admin: 02/10/25 20:27 Dose: 30 ml Amantadine HCl (Amantadine Hcl 100 Mg Capsule) 100 mg PO BID [facility] Last Admin: 02/11/25 08:18 Dose: 100 mg Amitriptyline HCl (Amitriptyline Hcl 10 Mg Tablet) 10 mg PO BEDTIME [facility] Last Admin: 02/10/25 20:25 Dose: 10 mg Aripiprazole (Aripiprazole 20 Mg Tablet) 20 mg PO DAILY [facility] Last Admin: 02/11/25 08:19 Dose: 20 mg Atorvastatin Calcium (Atorvastatin Calcium 80 Mg Tablet) 80 mg PO BEDTIME [facility] Last Admin: 02/10/25 20:24 Dose: 80 mg Benztropine Mesylate (Benztropine Mesylate 0.5 Mg Tablet) 0.5 mg PO BID [facility] Last Admin: 02/11/25 08:19 Dose: 0.5 mg Docusate Sodium (Docusate Sodium 100 Mg Capsule) 100 mg PO BID [facility] Last Admin: 02/11/25 08:18 Dose: 100 mg Hydroxyzine HCl (Hydroxyzine Hcl 25 Mg Tablet) 25 mg PO Q6H PRN PRN Reason: mild anxiety Last Admin: 02/04/25 20:05 Dose: 25 mg Lamotrigine (Lamotrigine 100 Mg Tablet) 200 mg PO BEDTIME [facility] Last Admin: 02/10/25 20:24 Dose: 200 mg Levalbuterol HCl (Levalbuterol Hcl 1.25 Mg/3 Ml Vial.Neb) 1.25 mg INHALE Q4H PRN PRN Reason: Wheezing Levothyroxine Sodium (Levothyroxine Sodium 125 Mcg Tablet) 125 mcg PO DAILY@0600 [facility] Last Admin: 02/11/25 06:21 Dose: 125 mcg Lisinopril (Lisinopril 10 Mg Tablet) 10 mg PO DAILY [facility]; Protocol Last Admin: 02/11/25 08:22 Dose: 10 mg Loratadine (Loratadine 10 Mg Tablet) 10 mg PO DAILY [facility] Last Admin: 02/11/25 08:18 Dose: 10 mg Lorazepam (Lorazepam 0.5 Mg Tablet) 0.5 mg PO BID PRN PRN Reason: anxiety/restlessness Last Admin: 02/11/25 01:06 Dose: 0.5 mg Magnesium Hydroxide (Milk Of Magnesia 30 Ml Oral.Susp) 30 ml PO DAILY PRN PRN Reason: Constipation Metformin HCl (Metformin Hcl 500 Mg Tablet) 500 mg PO BIDWM [facility] Last Admin: 02/11/25 08:17 Dose: 500 mg Nicotine (Nicotine 21 Mg Patch.Td24) 21 mg TRANSDERMA DAILY PRN PRN Reason: smoking cessation Nicotine Polacrilex (Nicotine Polacrilex 2 Mg Gum) 4 mg BUCCAL Q2H PRN PRN Reason: Nicotine Cravings Olanzapine (Olanzapine 7.5 Mg Tablet) 15 mg PO BEDTIME [facility] Last Admin: 02/10/25 20:23 Dose: 15 mg Allergies Allergies Allergy/AdvReac Type Severity Reaction Status Date / Time Seasonal Allergies Allergy Nasal Verified 01/21/25 16:35 congestion Assessment & Plan Assessment & Plan (1) COPD (chronic obstructive pulmonary disease): Qualifiers: COPD type: chronic bronchitis Chronic bronchitis type: simple Q ualified Code(s): J41.0 - Simple chronic bronchitis Status: Acute Code(s): J44.9 - Chronic obstructive pulmonary disease, unspecified (2) Tobacco dependence: Status: Acute Code(s): F17.200 - Nicotine dependence, unspecified, uncomplicated (3) Schizophrenia, paranoid type: Status: Acute Code(s): F20.0 - Paranoid schizophrenia Plan The patient likely has air trapping for the COPD. If she gets anxious or if she is dyspneic, she will likely have worsening air trapping making her breathing worse. Currently, she is well. start short acting beta agonist as needed Tobacco cessation Outpt PFTs/CXR Maybe a candidate for the Lung cancer screening program as an outpt 02/09: Continue current plans and regimen. Added Ativan 0.5 mg b.i.d. p.r.n. 02/10 Patient said she wants to go home... Says I feel good and I want to go home.. Today patient got anxious when learning she needed to get an echocardiogram; in her anxiety, she started yelling out saying Cecilia go ahead and tell them all my medical issues... Patient's daughter present who said that this is patient's downstairs neighbor whom she is paranoid about 02/11 Increase olanzapine at 20 mg olanzapine p.r.n. also ordered Abilify increased back to 20 mg check EKG patient perhaps seems to be responding somewhat to olanzapine had been severely agitated floridly hallucinating and agitated. Check abdominal CT scan given question of liver mass liver cancer and abdominal pain Reason for continued inpatient stay Substantial Risk for: harm to self, inability to function and rapid decompensation Time Spent With Patient Time: Total time managing care of this patient today ____ minutes.
[2025-02-11] MEDS: clonazePAM 0.5 MG TABLET PO (16:07)
[2025-02-11 20:00] VITALS: BP 116/62; PULSE 77; RESP 18; TEMP 36.2; O2SAT 100
[2025-02-11] MEDS: Atorvastatin Calcium 80 MG TABLET PO (20:40)
[2025-02-11] MEDS: lamoTRIgine 100 MG TABLET 200 MG PO (20:41)
[2025-02-11] MEDS: OLANZapine ODT 10 MG TAB.RAPDIS 20 MG TRANSLINGU (20:41)
[2025-02-12] MEDS: Levothyroxine Sodium 125 MCG TABLET PO (05:45)
[2025-02-12 07:57] LABS: MANUAL DIFF FLAG NO
[2025-02-12 08:00] VITALS: BP 110/55; PULSE 70; RESP 18; TEMP 36.6; O2SAT 99
[2025-02-12 08:00] LABS: Basophils Absolute Auto 0.1 X10*3/uL (0.0-0.2); Basophils Percent Auto 1.3 % (0-2); Eosinophils Absolute Auto 0.1 X10*3/uL (0.0-0.4); Eosinophils Percent Auto 2.2 % (0-4); Hematocrit 37.5 % (37.0-47.0); Hemoglobin 12.5 g/dl (12.0-16.0); Imm Gran Abs Auto 0.01 X10*3/uL (0.00-0.03); Imm Gran Pct Auto 0.2 % (0.0-0.4); Lymphocytes Absolute Auto 2.4 X10*3/uL (1.2-4.9); Lymphocytes Percent Auto 43.1 % (20-40); Mean Corpuscular HGB Conc 33.3 g/dl (31.0-35.0); Mean Corpuscular Hemoglobin 29.8 pg (27.0-33.0); Mean Corpuscular Volume 89.5 fL (80.0-98.0); Mean Platelet Volume 11.1 fL (9.4-12.3); Monocytes Absolute Auto 0.4 X10*3/uL (0.1-1.2); Monocytes Percent Auto 6.9 % (2-11); Neutrophils Absolute Auto 2.5 x10*3/uL (2.0-8.3); Neutrophils Percent Auto 46.3 % (45-73); Platelet Count 198 X10*3/uL (160-400); Red Blood Count 4.19 X10*6/uL (4.20-5.50); Red Cell Distribution Width 13.1 % (11.0-16.0); White Blood Count 5.5 X10*3/uL (4.8-10.8)
[2025-02-12 08:08] LABS: Estimated Average Glucose 123 mg/dL; Hemoglobin A1C 137.8727 umol/L; Hemoglobin A1c % 5.9 % (<6.0); Total Hemoglobin (HGBA1C) 3404.8179 umol/L
[2025-02-12 08:14] LABS: Alanine Aminotransferase 18 U/L (0-31); Albumin Level 4.1 g/dL (3.5-5.0); Alkaline Phosphatase 101 U/L (39-117); Anion Gap 12 (12-20); Aspartate Amino Transferase 24 U/L (5-31); Bilirubin Total 0.3 mg/dL (0.0-1.0); Blood Urea Nitrogen 14 mg/dL (9-16); Calcium 9.4 mg/dL (8.4-10.2); Carbon Dioxide 28 mmol/L (22-29); Chloride 101 mmol/L (96-108); Creatinine Clr Calc Pharmacy 53.5; Estimated Glomerular Filt Rate > 60; Glucose Random 82 mg/dL (60-115); Potassium 4.6 mmol/L (3.3-5.1); Rheumatoid Factor < 13.0 IU/mL (<15.0); Sodium 136 mmol/L (135-145); Total Protein 7.4 g/dL (6.5-8.0)
[2025-02-12] MEDS: Docusate Sodium 100 MG CAPSULE PO ×2 (09:05→20:37)
[2025-02-12] MEDS: lisinopriL 10 MG TABLET PO (09:05)
[2025-02-12] MEDS: metFORMIN HCl 500 MG TABLET PO (09:05)
[2025-02-12] MEDS: amantadine HCL 100 MG CAPSULE PO ×2 (09:06→20:37)
[2025-02-12] MEDS: Benztropine Mesylate 0.5 MG TABLET PO ×2 (09:06→20:36)
[2025-02-12] MEDS: Loratadine 10 MG TABLET PO (09:06)
[2025-02-12] MEDS: ARIPiprazole 20 MG TABLET PO (09:13)
[2025-02-12] MEDS: Cholecalciferol (Vitamin D3) 10 MCG TABLET 20 MCG PO (10:25)
[2025-02-12] MEDS: iohexoL 350 MG/ML 100 ML INFUS..BTL IV (17:44)
--- NOTE | 2025-02-12 17:54 | PC.NURSE ---
Patient arrived to the unit at 1745 from CAT scan via w/c accompanied by security and promotion writer, she got off the w/ chair in the kitchen area and had a witnessed fall while getting into a seat to have her dinner. Her VSS, no injuries reported.
[2025-02-12 17:58] VITALS: BP 145/62; PULSE 67; RESP 16; TEMP 36.1; O2SAT 99
[2025-02-12 20:00] VITALS: BP 117/56; PULSE 67; RESP 18; TEMP 36.4; O2SAT 99
[2025-02-12] MEDS: lamoTRIgine 100 MG TABLET 200 MG PO (20:37)
[2025-02-12] MEDS: Atorvastatin Calcium 80 MG TABLET PO (20:37)
[2025-02-12] MEDS: OLANZapine ODT 10 MG TAB.RAPDIS 20 MG TRANSLINGU (20:37)
[2025-02-13] MEDS: Levothyroxine Sodium 125 MCG TABLET PO (05:43)
[2025-02-13 08:00] VITALS: BP 136/56; PULSE 75; RESP 18; TEMP 36; O2SAT 100
[2025-02-13] MEDS: ARIPiprazole 20 MG TABLET PO (08:25)
[2025-02-13] MEDS: lisinopriL 10 MG TABLET PO (08:25)
[2025-02-13] MEDS: Cholecalciferol (Vitamin D3) 10 MCG TABLET 20 MCG PO (08:25)
[2025-02-13] MEDS: Loratadine 10 MG TABLET PO (08:26)
[2025-02-13] MEDS: Docusate Sodium 100 MG CAPSULE PO ×2 (08:26→19:34)
[2025-02-13] MEDS: metFORMIN HCl 500 MG TABLET PO ×2 (08:26→16:29)
[2025-02-13] MEDS: Benztropine Mesylate 0.5 MG TABLET PO ×2 (08:26→19:34)
[2025-02-13] MEDS: amantadine HCL 100 MG CAPSULE PO ×2 (08:26→19:34)
[2025-02-13] MEDS: Acetaminophen 325 MG TABLET 650 MG PO ×2 (09:49→15:41)
--- NOTE | 2025-02-13 10:07 | P.PNPSI_ITS ---
Subjective Subjective Date of Service: 02/12/25 Reason For Visit: other specified schizophrenia spectrum Subjective Notes: Conditional Voluntary Interim History: Patient seen psychiatric follow-up. The patient's mood is anxious she is agreeable to having an abdominal CT scan because of question of cancer noted 1 year ago in her liver and complaints of abdominal pain. Patient has been somewhat less agitated regarding her delusional material seems less preoccupied with auditory hallucinations. Mental Status Exam Mental Status Exam Narrative: Remains with psychotic preoccupation/delusions and/or AH related to a neighbor whom she feels is present and bothering her. She is however significantly less agitated regarding this Patient Appearance: Well Grooomed Patient Orientation: Person, Place and Situation (Somewhat) Level of Consciousness: Awake Patient Behavior: Appropriate Mood Description: Anxious Affect Description: Constricted Ability to Follow Directions: Fair Memory Description: Remote Impaired and Episodic Impaired Hallucinations: Auditory Delusions: Paranoid Ideation Thought Process: Rumination Thought Content: positive for Goal Oriented, negative for Suicidal Ideation or negative for Homicidal Ideation Depressive Symptoms: Increased Anxiety Judgement: Fair Judgement and Insight: Impaired. Diagnostics Vital Signs (24Hr): Vital Signs - 24 hr 02/12/25 17:58 02/12/25 20:00 02/13/25 08:00 Temperature 96.9 F 97.5 F 96.8 F Pulse Rate 67 67 75 Respiratory Rate 16 18 18 Blood Pressure 145/62 H 117/56 L 136/56 L Pulse Oximetry 99 99 100 Oxygen Delivery Method Room Air Room Air Room Air BMI result Body Mass Index 19.6 Labs 02/12/25 07:47 02/12/25 07:47 Labs: Laboratory Results - last 48 hr 02/12/25 07:47 WBC 5.5 RBC 4.19 L Hgb 12.5 Hct 37.5 MCV 89.5 MCH 29.8 MCHC 33.3 RDW 13.1 Plt Count 198 MPV 11.1 Immature Gran % (Auto) 0.2 Neut % (Auto) 46.3 Lymph % (Auto) 43.1 H [place] % (Auto) 6.9 Eos % (Auto) 2.2 Baso % (Auto) 1.3 Lymph # (Auto) 2.4 [place] # (Auto) 0.4 Eos # (Auto) 0.1 Baso # (Auto) 0.1 Abs Immat Gran (auto) 0.01 Absolute Neuts (auto) 2.5 Absolute Nucleated RBC 0.000 Nucleated RBC % (auto) 0.0 Sodium 136 Potassium 4.6 Chloride 101 Carbon Dioxide 28 Anion Gap 12 BUN 14 Creatinine 0.74 Estim Creat Clear Calc 53.5 Estimated GFR > 60 Random Glucose 82 Estimat Average Glucose 123 Hemoglobin A1c % 5.9 Calcium 9.4 D Total Bilirubin 0.3 AST 24 ALT 18 Alkaline Phosphatase 101 Total Protein 7.4 Albumin 4.1 Rheumatoid Factor < 13.0 Imaging Radiology Impressions: ITS Impressions Thyroid Ultrasound 01/22/25 09:21 IMPRESSION: ACR TI RADS 0. Normal thyroid. ACR TI-RADS RECOMMENDATION REFERENCE: Ultrasound-guided fine-needle aspiration, followup ultrasound, no further follow up. * TR1 (0 point) and TR2 (2 points): No FNA or follow up. * TR3 (3 points): FNA if more than or equal to 2.5 cm in maximum dimension, followup ultrasound in 1, 3 and 5 years if 1.5 to 2.4 cm in maximum dimension. * TR4 (4-6 points): FNA if more than or equal to 1.5 cm in maximum dimension, followup ultrasound in 1, 2, 3 and 5 years if 1 to 1.4 cm in maximum dimension. * TR5 (more than or equal to 7 points): FNA if more than or equal to 1 cm in maximum dimension, followup ultrasound every year for 5 years if 0.5 to 0.9 cm in maximum dimension. * TR3, TR4 or TR5 nodules that are below the size threshold for followup receive no follow up. Electronically signed by: Juan Rosenberg MD 01/22/2025 10:02 AM EDT Medications Medications Current Medications Acetaminophen (Acetaminophen 325 Mg Tablet) 650 mg PO Q6H PRN PRN Reason: Headache/Pain, Scale 1-10 Last Admin: 02/13/25 09:49 Dose: 650 mg Al Hydroxide/Mg Hydroxide (Magnesium Hydrox/Alum Hydrox 30 Ml Oral.Susp) 30 ml PO Q6H PRN PRN Reason: Heartburn/Nausea Last Admin: 02/10/25 20:27 Dose: 30 ml Amantadine HCl (Amantadine Hcl 100 Mg Capsule) 100 mg PO BID [facility] Last Admin: 02/13/25 08:26 Dose: 100 mg Aripiprazole (Aripiprazole 20 Mg Tablet) 20 mg PO DAILY [facility] Last Admin: 02/13/25 08:25 Dose: 20 mg Atorvastatin Calcium (Atorvastatin Calcium 80 Mg Tablet) 80 mg PO BEDTIME [facility] Last Admin: 02/12/25 20:37 Dose: 80 mg Benztropine Mesylate (Benztropine Mesylate 0.5 Mg Tablet) 0.5 mg PO BID [facility] Last Admin: 02/13/25 08:26 Dose: 0.5 mg Docusate Sodium (Docusate Sodium 100 Mg Capsule) 100 mg PO BID [facility] Last Admin: 02/13/25 08:26 Dose: 100 mg Hydroxyzine HCl (Hydroxyzine Hcl 25 Mg Tablet) 25 mg PO Q6H PRN PRN Reason: mild anxiety Last Admin: 02/04/25 20:05 Dose: 25 mg Lamotrigine (Lamotrigine 100 Mg Tablet) 200 mg PO BEDTIME [facility] Last Admin: 02/12/25 20:37 Dose: 200 mg Levalbuterol HCl (Levalbuterol Hcl 1.25 Mg/3 Ml Vial.Neb) 1.25 mg INHALE Q4H PRN PRN Reason: Wheezing Levothyroxine Sodium (Levothyroxine Sodium 125 Mcg Tablet) 125 mcg PO DAILY@0600 [facility] Last Admin: 02/13/25 05:43 Dose: 125 mcg Lisinopril (Lisinopril 10 Mg Tablet) 10 mg PO DAILY [facility]; Protocol Last Admin: 02/13/25 08:25 Dose: 10 mg Loratadine (Loratadine 10 Mg Tablet) 10 mg PO DAILY [facility] Last Admin: 02/13/25 08:26 Dose: 10 mg Lorazepam (Lorazepam 0.5 Mg Tablet) 0.5 mg PO BID PRN PRN Reason: anxiety/restlessness Last Admin: 02/11/25 12:43 Dose: 0.5 mg Magnesium Hydroxide (Milk Of Magnesia 30 Ml Oral.Susp) 30 ml PO DAILY PRN PRN Reason: Constipation Metformin HCl (Metformin Hcl 500 Mg Tablet) 500 mg PO BIDWM [facility] Last Admin: 02/13/25 08:26 Dose: 500 mg Nicotine (Nicotine 21 Mg Patch.Td24) 21 mg TRANSDERMA DAILY PRN PRN Reason: smoking cessation Nicotine Polacrilex (Nicotine Polacrilex 2 Mg Gum) 4 mg BUCCAL Q2H PRN PRN Reason: Nicotine Cravings Olanzapine (Olanzapine Odt 10 Mg Tab.Rapdis) 20 mg TRANSLINGU BEDTIME [facility] Last Admin: 02/12/25 20:37 Dose: 20 mg Olanzapine (Olanzapine 2.5 Mg Tablet) 2.5 mg PO Q4H PRN PRN Reason: Psychosis Vitamin D (Cholecalciferol (Vitamin D3) 10 Mcg Tablet) 20 mcg PO DAILY [facility] Last Admin: 02/13/25 08:25 Dose: 20 mcg Allergies Allergies Allergy/AdvReac Type Severity Reaction Status Date / Time Seasonal Allergies Allergy Nasal Verified 01/21/25 16:35 congestion Assessment & Plan Assessment & Plan (1) Schizophrenia, paranoid type: Status: Acute Code(s): F20.0 - Paranoid schizophrenia (2) COPD (chronic obstructive pulmonary disease): Qualifiers: COPD type: chronic bronchitis Chronic bronchitis type: simple Q ualified Code(s): J41.0 - Simple chronic bronchitis Status: Acute Code(s): J44.9 - Chronic obstructive pulmonary disease, unspecified (3) Cognitive disorder: Status: Suspected Code(s): F09 - Unspecified mental disorder due to known physiological condition (4) Graves disease: Status: Acute Code(s): E05.00 - Thyrotoxicosis with diffuse goiter without thyrotoxic crisis or storm Plan The patient likely has air trapping for the COPD. If she gets anxious or if she is dyspneic, she will likely have worsening air trapping making her breathing worse. Currently, she is well. start short acting beta agonist as needed Tobacco cessation Outpt PFTs/CXR Maybe a candidate for the Lung cancer screening program as an outpt 02/09: Continue current plans and regimen. Added Ativan 0.5 mg b.i.d. p.r.n. 02/10 Patient said she wants to go home... Says I feel good and I want to go home.. Today patient got anxious when learning she needed to get an echocardiogram; in her anxiety, she started yelling out saying Cecilia go ahead and tell them all my medical issues... Patient's daughter present who said that this is patient's downstairs neighbor whom she is paranoid about 02/11 Increase olanzapine at 20 mg olanzapine p.r.n. also ordered Abilify increased back to 20 mg check EKG patient perhaps seems to be responding somewhat to olanzapine had been severely agitated floridly hallucinating and agitated. Check abdominal CT scan given question of liver mass liver cancer and abdominal pain 02/12 Patient seems somewhat improved less agitated on olanzapine abdominal CT scan ordered case reviewed with patient's primary care office patient was supposed to have follow-up regarding question of liver mass patient complains of abdominal pain agreeable to abdominal CT scan could be contributing factor to psychiatric presentation. Patient was able to give informed consent Reason for continued inpatient stay Substantial Risk for: harm to self, inability to function and rapid decompensation Time Spent With Patient Time: Total time managing care of this patient today ____ minutes.
--- NOTE | 2025-02-13 10:15 | HO.PSYCHPN ---
Subjective Subjective Date of Service: 02/13/25 Reason For Visit: other specified schizophrenia spectrum Subjective Notes: Conditional Voluntary Interim History: Patient seen psychiatric follow-up chart reviewed patient seen case reviewed in treatment planning patient somewhat less agitated agreeable to medical workup patient remains quite delusional but somewhat less agitated regarding delusional material. Constantly stating she is getting surgery constantly Mental Status Exam Mental Status Exam Narrative: Patient more somatically preoccupied and frequently stating she is having surgery difficulty maintaining reality basis regarding current medical issues Patient Appearance: Well Grooomed Patient Orientation: Person, Place and Situation (Somewhat) Level of Consciousness: Awake Patient Behavior: Appropriate Mood Description: Anxious Affect Description: Constricted Ability to Follow Directions: Fair Memory Description: Remote Impaired and Episodic Impaired Hallucinations: Auditory Delusions: Paranoid Ideation Thought Process: Rumination Thought Content: positive for Goal Oriented, negative for Suicidal Ideation or negative for Homicidal Ideation Depressive Symptoms: Increased Anxiety Judgement: Fair Judgement and Insight: Impaired. Diagnostics Vital Signs (24Hr): Vital Signs - 24 hr 02/12/25 17:58 02/12/25 20:00 02/13/25 08:00 Temperature 96.9 F 97.5 F 96.8 F Pulse Rate 67 67 75 Respiratory Rate 16 18 18 Blood Pressure 145/62 H 117/56 L 136/56 L Pulse Oximetry 99 99 100 Oxygen Delivery Method Room Air Room Air Room Air BMI result Body Mass Index 19.6 Labs 02/12/25 07:47 02/12/25 07:47 Labs: Laboratory Results - last 48 hr 02/12/25 07:47 WBC 5.5 RBC 4.19 L Hgb 12.5 Hct 37.5 MCV 89.5 MCH 29.8 MCHC 33.3 RDW 13.1 Plt Count 198 MPV 11.1 Immature Gran % (Auto) 0.2 Neut % (Auto) 46.3 Lymph % (Auto) 43.1 H [place] % (Auto) 6.9 Eos % (Auto) 2.2 Baso % (Auto) 1.3 Lymph # (Auto) 2.4 [place] # (Auto) 0.4 Eos # (Auto) 0.1 Baso # (Auto) 0.1 Abs Immat Gran (auto) 0.01 Absolute Neuts (auto) 2.5 Absolute Nucleated RBC 0.000 Nucleated RBC % (auto) 0.0 Sodium 136 Potassium 4.6 Chloride 101 Carbon Dioxide 28 Anion Gap 12 BUN 14 Creatinine 0.74 Estim Creat Clear Calc 53.5 Estimated GFR > 60 Random Glucose 82 Estimat Average Glucose 123 Hemoglobin A1c % 5.9 Calcium 9.4 D Total Bilirubin 0.3 AST 24 ALT 18 Alkaline Phosphatase 101 Total Protein 7.4 Albumin 4.1 Rheumatoid Factor < 13.0 Imaging Radiology Impressions: ITS Impressions Thyroid Ultrasound 01/22/25 09:21 IMPRESSION: ACR TI RADS 0. Normal thyroid. ACR TI-RADS RECOMMENDATION REFERENCE: Ultrasound-guided fine-needle aspiration, followup ultrasound, no further follow up. * TR1 (0 point) and TR2 (2 points): No FNA or follow up. * TR3 (3 points): FNA if more than or equal to 2.5 cm in maximum dimension, followup ultrasound in 1, 3 and 5 years if 1.5 to 2.4 cm in maximum dimension. * TR4 (4-6 points): FNA if more than or equal to 1.5 cm in maximum dimension, followup ultrasound in 1, 2, 3 and 5 years if 1 to 1.4 cm in maximum dimension. * TR5 (more than or equal to 7 points): FNA if more than or equal to 1 cm in maximum dimension, followup ultrasound every year for 5 years if 0.5 to 0.9 cm in maximum dimension. * TR3, TR4 or TR5 nodules that are below the size threshold for followup receive no follow up. Electronically signed by: Juan Rosenberg MD 01/22/2025 10:02 AM EDT Medications Medications Current Medications Acetaminophen (Acetaminophen 325 Mg Tablet) 650 mg PO Q6H PRN PRN Reason: Headache/Pain, Scale 1-10 Last Admin: 02/13/25 09:49 Dose: 650 mg Al Hydroxide/Mg Hydroxide (Magnesium Hydrox/Alum Hydrox 30 Ml Oral.Susp) 30 ml PO Q6H PRN PRN Reason: Heartburn/Nausea Last Admin: 02/10/25 20:27 Dose: 30 ml Amantadine HCl (Amantadine Hcl 100 Mg Capsule) 100 mg PO BID [facility] Last Admin: 02/13/25 08:26 Dose: 100 mg Aripiprazole (Aripiprazole 20 Mg Tablet) 20 mg PO DAILY [facility] Last Admin: 02/13/25 08:25 Dose: 20 mg Atorvastatin Calcium (Atorvastatin Calcium 80 Mg Tablet) 80 mg PO BEDTIME [facility] Last Admin: 02/12/25 20:37 Dose: 80 mg Benztropine Mesylate (Benztropine Mesylate 0.5 Mg Tablet) 0.5 mg PO BID [facility] Last Admin: 02/13/25 08:26 Dose: 0.5 mg Docusate Sodium (Docusate Sodium 100 Mg Capsule) 100 mg PO BID [facility] Last Admin: 02/13/25 08:26 Dose: 100 mg Hydroxyzine HCl (Hydroxyzine Hcl 25 Mg Tablet) 25 mg PO Q6H PRN PRN Reason: mild anxiety Last Admin: 02/04/25 20:05 Dose: 25 mg Lamotrigine (Lamotrigine 100 Mg Tablet) 200 mg PO BEDTIME [facility] Last Admin: 02/12/25 20:37 Dose: 200 mg Levalbuterol HCl (Levalbuterol Hcl 1.25 Mg/3 Ml Vial.Neb) 1.25 mg INHALE Q4H PRN PRN Reason: Wheezing Levothyroxine Sodium (Levothyroxine Sodium 125 Mcg Tablet) 125 mcg PO DAILY@0600 [facility] Last Admin: 02/13/25 05:43 Dose: 125 mcg Lisinopril (Lisinopril 10 Mg Tablet) 10 mg PO DAILY [facility]; Protocol Last Admin: 02/13/25 08:25 Dose: 10 mg Loratadine (Loratadine 10 Mg Tablet) 10 mg PO DAILY [facility] Last Admin: 02/13/25 08:26 Dose: 10 mg Lorazepam (Lorazepam 0.5 Mg Tablet) 0.5 mg PO BID PRN PRN Reason: anxiety/restlessness Last Admin: 02/11/25 12:43 Dose: 0.5 mg Magnesium Hydroxide (Milk Of Magnesia 30 Ml Oral.Susp) 30 ml PO DAILY PRN PRN Reason: Constipation Metformin HCl (Metformin Hcl 500 Mg Tablet) 500 mg PO BIDWM [facility] Last Admin: 02/13/25 08:26 Dose: 500 mg Nicotine (Nicotine 21 Mg Patch.Td24) 21 mg TRANSDERMA DAILY PRN PRN Reason: smoking cessation Nicotine Polacrilex (Nicotine Polacrilex 2 Mg Gum) 4 mg BUCCAL Q2H PRN PRN Reason: Nicotine Cravings Olanzapine (Olanzapine Odt 10 Mg Tab.Rapdis) 20 mg TRANSLINGU BEDTIME [facility] Last Admin: 02/12/25 20:37 Dose: 20 mg Olanzapine (Olanzapine 2.5 Mg Tablet) 2.5 mg PO Q4H PRN PRN Reason: Psychosis Vitamin D (Cholecalciferol (Vitamin D3) 10 Mcg Tablet) 20 mcg PO DAILY [facility] Last Admin: 02/13/25 08:25 Dose: 20 mcg Allergies Allergies Allergy/AdvReac Type Severity Reaction Status Date / Time Seasonal Allergies Allergy Nasal Verified 01/21/25 16:35 congestion Assessment & Plan Assessment & Plan (1) Schizophrenia, paranoid type: Status: Acute Code(s): F20.0 - Paranoid schizophrenia (2) COPD (chronic obstructive pulmonary disease): Qualifiers: COPD type: chronic bronchitis Chronic bronchitis type: simple Qualified Code(s): J41.0 - Simple chronic bronchitis Status: Acute Code(s): J44.9 - Chronic obstructive pulmonary disease, unspecified (3) Cognitive disorder: Status: Suspected Code(s): F09 - Unspecified mental disorder due to known physiological condition (4) Graves disease: Status: Acute Code(s): E05.00 - Thyrotoxicosis with diffuse goiter without thyrotoxic crisis or storm Plan The patient likely has air trapping for the COPD. If she gets anxious or if she is dyspneic, she will likely have worsening air trapping making her breathing worse. Currently, she is well. start short acting beta agonist as needed Tobacco cessation Outpt PFTs/CXR Maybe a candidate for the Lung cancer screening program as an outpt 02/09: Continue current plans and regimen. Added Ativan 0.5 mg b.i.d. p.r.n. 02/10 Patient said she wants to go home... Says I feel good and I want to go home.. Today patient got anxious when learning she needed to get an echocardiogram; in her anxiety, she started yelling out saying Cecilia go ahead and tell them all my medical issues... Patient's daughter present who said that this is patient's downstairs neighbor whom she is paranoid about 02/11 Increase olanzapine at 20 mg olanzapine p.r.n. also ordered Abilify increased back to 20 mg check EKG patient perhaps seems to be responding somewhat to olanzapine had been severely agitated floridly hallucinating and agitated. Check abdominal CT scan given question of liver mass liver cancer and abdominal pain 02/12 Patient seems somewhat improved less agitated on olanzapine abdominal CT scan ordered case reviewed with patient's primary care office patient was supposed to have follow-up regarding question of liver mass patient complains of abdominal pain agreeable to abdominal CT scan could be contributing factor to psychiatric presentation. Patient was able to give informed consent 02/13/2025 Continue olanzapine Abilify patient remains delusional but significantly calmer less agitated able to cooperate with medical workup including abdominal/pelvic ultrasound which shows liver lesions. Gastroenterology involved Reason for continued inpatient stay Substantial Risk for: inability to function and rapid decompensation Time Spent With Patient Time: Total time managing care of this patient today ____ minutes.
[2025-02-13 10:18] VITALS: BMI 19.9
[2025-02-13 10:29] LABS: Thyroid Stimulating Hormone 0.86 uIU/mL (0.32-4.0)
--- NOTE | 2025-02-13 14:55 | PM.GICN ---
History of Present Illness Data of Consult Service Date: 02/13/25 Requesting physician: Preet Mathis Primary Care Provider: Hank Frazier MD [facility] Reason for consult: Abnormal CT scan 74-year-old female with history of anxiety and depression, paranoid schizophrenia disorder, unspecified asthma, hyperlipidemia, [id number]-[id number] type 2 diabetes, and hypertension who is a current 1/2 pack per day cigarette smoker admitted to adult Psychiatry ON 01/22/25 with after making suicidal and homicidal statements GI consulted for FU of abnormal CT scan of the liver Patient denies past history of ETOH abuse or liver problems Pt reports intermittent constipation and takes a stool softener with good results Pt admits to smoking in the past and quitted 1 year ago and denies any illicit drug use. 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 Indeterminate hepatic lesions within segments 1 and 7 of the liver measuring up to 3.1 cm. Recommend comparison with prior imaging if available. If none available, recommend hepatic protocol CT or MR for further characterization. Additional smaller hepatic lesions can be evaluated at that time. Review of Systems Review of Systems: Anxiety Yes all other systems are reviewed and are negative PMFSH Past Medical History Medical History (Updated 02/14/25 @ 14:52 by Scott Beckman MD) Graves disease Tobacco dependence COPD (chronic obstructive pulmonary disease) Social History Social History Household Members: None Housing: Assisted Living Facility Do you presently have visiting nurse or other home services: Yes Patient Tobacco Use Status: Current everyday Tobacco user Tobacco use type: Cigarette Cigarette Packs Per Day: 1 Cigarettes Per Day: 20.0 Years Smoked: 15 Smoked in Last 30 Days: Yes e-Cigarette/Vaping Use: Never Used Patient Interested in Nicotine Replacement: Yes Patient Given Instructions on How to Stop Smoking: Yes Date Education Initiated: 01/21/25 Second Hand Smoke Exposure: No Use of substances other than those prescribed or required for medical reasons: No Currently Displaying Signs/Symptoms of Drug Intoxication Withdrawal: No Any prior treatment program specific to substance use: No Have you been hit, kicked, punched, or otherwise hurt by someone within the past year? If so, by whom?: No Do you feel safe in your current relationship?: No Current Relationship Is there a partner from a previous relationship who is making you feel unsafe now?: No Are you made to feel afraid or neglected: Yes Advance Directives: No Advance Directives Information Provided: No Do you have thoughts of harming others: None Do you have a plan to hurt others: No Plan Recently lost weight without trying: Yes How much weight loss: 34pounds or more Eating poorly because of decreased appetite: Yes Nutrition screen score: 7 Nutrition Risks: Anorexia Patient : No : No Poor oral hygiene: No service: No Sexual orientation: Straight/Heterosexual Meds Allergies Allergy/AdvReac Type Severity Reaction Status Date / Time Seasonal Allergies Allergy Nasal Verified 01/21/25 16:35 congestion Active Medications: Current Medications Acetaminophen (Acetaminophen 325 Mg Tablet) 650 mg PO Q6H PRN PRN Reason: Headache/Pain, Scale 1-10 Last Admin: 02/13/25 09:49 Dose: 650 mg Al Hydroxide/Mg Hydroxide (Magnesium Hydrox/Alum Hydrox 30 Ml Oral.Susp) 30 ml PO Q6H PRN PRN Reason: Heartburn/Nausea Last Admin: 02/10/25 20:27 Dose: 30 ml Amantadine HCl (Amantadine Hcl 100 Mg Capsule) 100 mg PO BID [facility] Last Admin: 02/13/25 08:26 Dose: 100 mg Aripiprazole (Aripiprazole 20 Mg Tablet) 20 mg PO DAILY [facility] Last Admin: 02/13/25 08:25 Dose: 20 mg Atorvastatin Calcium (Atorvastatin Calcium 80 Mg Tablet) 80 mg PO BEDTIME [facility] Last Admin: 02/12/25 20:37 Dose: 80 mg Benztropine Mesylate (Benztropine Mesylate 0.5 Mg Tablet) 0.5 mg PO BID [facility] Last Admin: 02/13/25 08:26 Dose: 0.5 mg Docusate Sodium (Docusate Sodium 100 Mg Capsule) 100 mg PO BID [facility] Last Admin: 02/13/25 08:26 Dose: 100 mg Hydroxyzine HCl (Hydroxyzine Hcl 25 Mg Tablet) 25 mg PO Q6H PRN PRN Reason: mild anxiety Last Admin: 02/04/25 20:05 Dose: 25 mg Lamotrigine (Lamotrigine 100 Mg Tablet) 200 mg PO BEDTIME [facility] Last Admin: 02/12/25 20:37 Dose: 200 mg Levalbuterol HCl (Levalbuterol Hcl 1.25 Mg/3 Ml Vial.Neb) 1.25 mg INHALE Q4H PRN PRN Reason: Wheezing Levothyroxine Sodium (Levothyroxine Sodium 125 Mcg Tablet) 125 mcg PO DAILY@0600 [facility] Last Admin: 02/13/25 05:43 Dose: 125 mcg Lisinopril (Lisinopril 10 Mg Tablet) 10 mg PO DAILY [facility]; Protocol Last Admin: 02/13/25 08:25 Dose: 10 mg Loratadine (Loratadine 10 Mg Tablet) 10 mg PO DAILY [facility] Last Admin: 02/13/25 08:26 Dose: 10 mg Lorazepam (Lorazepam 0.5 Mg Tablet) 0.5 mg PO BID PRN PRN Reason: anxiety/restlessness Last Admin: 02/11/25 12:43 Dose: 0.5 mg Magnesium Hydroxide (Milk Of Magnesia 30 Ml Oral.Susp) 30 ml PO DAILY PRN PRN Reason: Constipation Metformin HCl (Metformin Hcl 500 Mg Tablet) 500 mg PO BIDWM [facility] Last Admin: 02/13/25 08:26 Dose: 500 mg Nicotine (Nicotine 21 Mg Patch.Td24) 21 mg TRANSDERMA DAILY PRN PRN Reason: smoking cessation Nicotine Polacrilex (Nicotine Polacrilex 2 Mg Gum) 4 mg BUCCAL Q2H PRN PRN Reason: Nicotine Cravings Olanzapine (Olanzapine Odt 10 Mg Tab.Rapdis) 20 mg TRANSLINGU BEDTIME [facility] Last Admin: 02/12/25 20:37 Dose: 20 mg Olanzapine (Olanzapine 2.5 Mg Tablet) 2.5 mg PO Q4H PRN PRN Reason: Psychosis Vitamin D (Cholecalciferol (Vitamin D3) 10 Mcg Tablet) 20 mcg PO DAILY [facility] Last Admin: 02/13/25 08:25 Dose: 20 mcg Home Medications ?Medication ?Instructions ?Recorded ?Confirmed ?Last Taken ?Type amantadine HCl 100 mg tablet 100 mg PO BID 01/21/25 01/21/25 Unknown History amitriptyline 10 mg tablet 10 mg PO BEDTIME 01/21/25 01/21/25 Unknown History aripiprazole 20 mg tablet (Abilify) 20 mg PO DAILY 01/21/25 01/21/25 Unknown History atorvastatin 80 mg tablet 80 mg PO BEDTIME 01/21/25 01/21/25 Unknown History benztropine 0.5 mg tablet 0.5 mg PO BID 01/21/25 01/21/25 Unknown History docusate sodium 100 mg capsule 100 mg PO BID 01/21/25 01/21/25 Unknown History estradiol 0.01% (0.1 mg/gram) 1 g vaginal 3XW 01/21/25 01/21/25 Unknown History vaginal cream lamotrigine 200 mg tablet 200 mg PO BEDTIME 01/21/25 01/21/25 Unknown History levothyroxine 125 mcg tablet 125 mcg PO DAILY 01/21/25 01/21/25 Unknown History lisinopril 10 mg tablet 10 mg PO DAILY 01/21/25 01/21/25 Unknown History metformin 500 mg tablet 500 mg PO BID 01/21/25 01/21/25 Unknown History quetiapine 300 mg tablet 300 mg PO BEDTIME 01/21/25 01/21/25 Unknown History quetiapine 50 mg tablet 50 mg PO BEDTIME 01/21/25 01/21/25 Unknown History Physical Exam Vital Signs: Vital Signs: Last Vital Signs Temp 96.8 F 02/13/25 08:00 Pulse 75 02/13/25 08:00 Resp 18 02/13/25 08:00 BP 136/56 L 02/13/25 08:00 Pulse Ox 100 02/13/25 08:00 O2 Del Method Room Air 02/13/25 08:00 BMI result Body Mass Index 19.9 Const: General: healthy appearing and no acute distress Nutritional Appearance: average body habitus Orientation/consciousness: patient oriented x3 Limitations: no limitations HEENT: Head: Yes normal to inspection Ears: hearing grossly normal bilaterally Mouth: Normal oral and palatal mucosa present Eyes: Sclerae: sclerae normal Pupils: Equal, round and reactive pupils present Neck: Neck: Yes normal visual inspection Chest: Chest palpation & inspection: normal inspection of the chest Resp: Effort & Inspection: normal respiratory effort Auscultation: clear to auscultation bilaterally Cardio: Palpation: normal PMI Rate: regular rate Rhythm: regular rhythm Heart sounds: S1 normal heart sound present, S2 normal heart sound present and no murmurs GI: Palpation (GI): Soft to palpation, nontender and No hepatosplenomegaly present Auscultation: normal bowel sounds Rectal Exam - Female: deferred Skin: General skin exam: no rashes or lesions noted Neuro: General: patient oriented x3, gait normal and moves all extremities Cranial nerves: Yes Equal, round and reactive pupils present Psych: Appearance: grossly normal Mental Status: mental status grossly normal Results Labs 02/12/25 07:47 02/12/25 07:47 Assessment and Plan (1) Abnormal CT of liver: Status: Acute Plan 74-year-old female with history of anxiety and depression, paranoid schizophrenia disorder, unspecified asthma, hyperlipidemia, guc-ftzzuoi-fsgewheur type 2 diabetes, and hypertension admitted to adult Psychiatry on 01/22/25 with after making suicidal and homicidal statements GI consulted for FU of abnormal CT scan of the liver Labs revealed normal LFTs ABD CT scan showed an 3.1 cms Indeterminate hepatic lesions in segments 1 and [address] scan was reviewed with Radiology and no prior images were available No obvious cirrhosis on CT scan Liver lesion can be benign (hepatic hemangioma, focal nodular hyperplasia, hepatocellular adenoma) or malignant (hepatocellular carcinoma, cholangiocarcinoma or metastatic disease) Liver lesion is likely benign since no significant increase in size over the past year (See outside CT report below from 01/23/24) RECOMMENDATIONS: 1. Check AFP and CA 19-9 - order placed for am labs 2. Schedule hepatic protocol MR for further characterization of the hepatic lesion (MRI could not be performed today due to prescence of spinal neurostimulator. Pt's daughter will be bringing the remote for the Neurostimulator on Monday and MRI will likely be done on Monday/Monday if the neurostimulator battery pack is MRI compatible) ADDENDUM: 01/23/[address] SCAN AT AN OUTSIDE FACILITY WHICH SHOWED: 1. Nodular contour of the liver, stage otic appearance. Patent portal veins, normal gallbladder, no bile duct dilation. 2. 4.1 x 4 x 2.9 cm liver lesion identified within segment 7 abutting the IVC. This demonstrates hypervascularity and is concerning for underlying liver lesion. Further characterization with multiphase CT or MRI if the neurostimulator battery pack is MRI compatible. 3. No evidence for an acute abdomen. Procedures Date of Service Date of Service: 02/14/25
--- NOTE | 2025-02-13 18:46 | PC.NURSE ---
Patient has an existing IV line from 02/12, Francis notified [facility] flushing orders.
[2025-02-13] MEDS: 0.9 % Sodium Chloride Flush 5 ML SYRINGE IVFLUSH (19:10)
[2025-02-13] MEDS: OLANZapine ODT 10 MG TAB.RAPDIS 20 MG TRANSLINGU (19:34)
[2025-02-13] MEDS: Atorvastatin Calcium 80 MG TABLET PO (19:34)
[2025-02-13] MEDS: lamoTRIgine 100 MG TABLET 200 MG PO (19:34)
[2025-02-13 19:42] VITALS: BP 126/68; PULSE 72; RESP 16; TEMP 36.2; O2SAT 98
[2025-02-14] MEDS: Levothyroxine Sodium 125 MCG TABLET PO (05:04)
[2025-02-14] MEDS: 0.9 % Sodium Chloride Flush 10 ML SYRINGE 5 ML IVFLUSH (06:03)
[2025-02-14 08:00] VITALS: BP 120/55; PULSE 74; RESP 18; TEMP 36.3; O2SAT 100
--- NOTE | 2025-02-14 08:00 | ECG_ITS ---
Test Reason : AV BLOCK Blood Pressure : */* mmHG Vent. Rate : 72 BPM Atrial Rate : 72 BPM P-R Int : 184 ms QRS Dur : 82 ms QT Int : 382 ms P-R-T Axes : 32 -2 48 degrees QTcB Int : 418 ms Normal sinus rhythm Low voltage QRS Borderline ECG When compared with ECG of 31-Jan-2025 13:06, TN interval has decreased Referred By: Preet Mathis Electronically Signed By: LINSEY LAMAR
[2025-02-14] MEDS: amantadine HCL 100 MG CAPSULE PO ×2 (08:29→20:25)
[2025-02-14] MEDS: metFORMIN HCl 500 MG TABLET PO ×2 (08:29→15:56)
[2025-02-14] MEDS: Loratadine 10 MG TABLET PO (08:29)
[2025-02-14] MEDS: Benztropine Mesylate 0.5 MG TABLET PO ×2 (08:29→20:25)
[2025-02-14] MEDS: ARIPiprazole 20 MG TABLET PO (08:29)
[2025-02-14] MEDS: lisinopriL 10 MG TABLET PO (08:29)
[2025-02-14] MEDS: Docusate Sodium 100 MG CAPSULE PO ×2 (08:29→20:25)
[2025-02-14] MEDS: Cholecalciferol (Vitamin D3) 10 MCG TABLET 20 MCG PO (08:30)
[2025-02-14 15:13] LABS: Anti Nuclear Antibody Screen NEGATIVE (NEGATIVE)
[2025-02-14] MEDS: Acetaminophen 325 MG TABLET 650 MG PO ×2 (15:55→22:19)
[2025-02-14 20:00] VITALS: BP 128/62; PULSE 73; RESP 16; TEMP 36.1; O2SAT 99
[2025-02-14] MEDS: OLANZapine ODT 10 MG TAB.RAPDIS 20 MG TRANSLINGU (20:25)
[2025-02-14] MEDS: Atorvastatin Calcium 80 MG TABLET PO (20:25)
[2025-02-14] MEDS: lamoTRIgine 100 MG TABLET 200 MG PO (20:25)
--- NOTE | 2025-02-14 21:36 | HO.PSYCHPN ---
Subjective Subjective Date of Service: 02/14/25 Reason For Visit: other specified schizophrenia spectrum Subjective Notes: Conditional Voluntary Interim History: Patient seems less psychotically agitated she was cooperative with gastroenterology consult is aware she may have abnormalities in her liver and has been cooperative with imaging. Needs reassurance that she is not having any surgery at this time gait seems okay not hypotensive she was able to call her daughter to get the control for turning off the bladder stimulator if she were to need an MRI Medication Compliance: Yes Diagnostics Vital Signs (24Hr): Vital Signs - 24 hr 02/14/25 08:00 Temperature 97.4 F Pulse Rate 74 Respiratory Rate 18 Blood Pressure 120/55 L Pulse Oximetry 100 Oxygen Delivery Method Room Air BMI result Body Mass Index 19.9 Labs 02/12/25 07:47 02/12/25 07:47 Labs: Laboratory Results - last 48 hr 02/12/25 07:47 TSH 0.86 JOSEF Screen NEGATIVE Imaging Radiology Impressions: ITS Impressions Thyroid Ultrasound 01/22/25 09:21 IMPRESSION: ACR TI RADS 0. Normal thyroid. ACR TI-RADS RECOMMENDATION REFERENCE: Ultrasound-guided fine-needle aspiration, followup ultrasound, no further follow up. * TR1 (0 point) and TR2 (2 points): No FNA or follow up. * TR3 (3 points): FNA if more than or equal to 2.5 cm in maximum dimension, followup ultrasound in 1, 3 and 5 years if 1.5 to 2.4 cm in maximum dimension. * TR4 (4-6 points): FNA if more than or equal to 1.5 cm in maximum dimension, followup ultrasound in 1, 2, 3 and 5 years if 1 to 1.4 cm in maximum dimension. * TR5 (more than or equal to 7 points): FNA if more than or equal to 1 cm in maximum dimension, followup ultrasound every year for 5 years if 0.5 to 0.9 cm in maximum dimension. * TR3, TR4 or TR5 nodules that are below the size threshold for followup receive no follow up. Electronically signed by: Juan Rosenberg MD 01/22/2025 10:02 AM EDT Medications Medications Current Medications Acetaminophen (Acetaminophen 325 Mg Tablet) 650 mg PO Q6H PRN PRN Reason: Headache/Pain, Scale 1-10 Last Admin: 02/14/25 15:55 Dose: 650 mg Al Hydroxide/Mg Hydroxide (Magnesium Hydrox/Alum Hydrox 30 Ml Oral.Susp) 30 ml PO Q6H PRN PRN Reason: Heartburn/Nausea Last Admin: 02/10/25 20:27 Dose: 30 ml Amantadine HCl (Amantadine Hcl 100 Mg Capsule) 100 mg PO BID [facility] Last Admin: 02/14/25 20:25 Dose: 100 mg Aripiprazole (Aripiprazole 20 Mg Tablet) 20 mg PO DAILY [facility] Last Admin: 02/14/25 08:29 Dose: 20 mg Atorvastatin Calcium (Atorvastatin Calcium 80 Mg Tablet) 80 mg PO BEDTIME [facility] Last Admin: 02/14/25 20:25 Dose: 80 mg Benztropine Mesylate (Benztropine Mesylate 0.5 Mg Tablet) 0.5 mg PO BID [facility] Last Admin: 02/14/25 20:25 Dose: 0.5 mg Docusate Sodium (Docusate Sodium 100 Mg Capsule) 100 mg PO BID [facility] Last Admin: 02/14/25 20:25 Dose: 100 mg Hydroxyzine HCl (Hydroxyzine Hcl 25 Mg Tablet) 25 mg PO Q6H PRN PRN Reason: mild anxiety Last Admin: 02/04/25 20:05 Dose: 25 mg Lamotrigine (Lamotrigine 100 Mg Tablet) 200 mg PO BEDTIME [facility] Last Admin: 02/14/25 20:25 Dose: 200 mg Levalbuterol HCl (Levalbuterol Hcl 1.25 Mg/3 Ml Vial.Neb) 1.25 mg INHALE Q4H PRN PRN Reason: Wheezing Levothyroxine Sodium (Levothyroxine Sodium 125 Mcg Tablet) 125 mcg PO DAILY@0600 [facility] Last Admin: 02/14/25 05:04 Dose: 125 mcg Lisinopril (Lisinopril 10 Mg Tablet) 10 mg PO DAILY [facility]; Protocol Last Admin: 02/14/25 08:29 Dose: 10 mg Loratadine (Loratadine 10 Mg Tablet) 10 mg PO DAILY [facility] Last Admin: 02/14/25 08:29 Dose: 10 mg Lorazepam (Lorazepam 0.5 Mg Tablet) 0.5 mg PO BID PRN PRN Reason: moderate, anxiety Magnesium Hydroxide (Milk Of Magnesia 30 Ml Oral.Susp) 30 ml PO DAILY PRN PRN Reason: Constipation Metformin HCl (Metformin Hcl 500 Mg Tablet) 500 mg PO BIDWM [facility] Last Admin: 02/14/25 15:56 Dose: 500 mg Nicotine (Nicotine 21 Mg Patch.Td24) 21 mg TRANSDERMA DAILY PRN PRN Reason: smoking cessation Nicotine Polacrilex (Nicotine Polacrilex 2 Mg Gum) 4 mg BUCCAL Q2H PRN PRN Reason: Nicotine Cravings Olanzapine (Olanzapine Odt 10 Mg Tab.Rapdis) 20 mg TRANSLINGU BEDTIME [facility] Last Admin: 02/14/25 20:25 Dose: 20 mg Olanzapine (Olanzapine 2.5 Mg Tablet) 2.5 mg PO Q4H PRN PRN Reason: Psychosis Sodium Chloride (0.9 % Sodium Chloride Flush 10 Ml Syringe) 5 ml IVFLUSH QSHIFT [facility] Last Admin: 02/14/25 17:38 Dose: Not Given Vitamin D (Cholecalciferol (Vitamin D3) 10 Mcg Tablet) 20 mcg PO DAILY [facility] Last Admin: 02/14/25 08:30 Dose: 20 mcg Allergies Allergies Allergy/AdvReac Type Severity Reaction Status Date / Time Seasonal Allergies Allergy Nasal Verified 01/21/25 16:35 congestion Assessment & Plan Assessment & Plan (1) Schizophrenia, paranoid type: Status: Acute Code(s): F20.0 - Paranoid schizophrenia (2) Abnormal CT of liver: Status: Acute Code(s): R93.2 - Abnormal findings on diagnostic imaging of liver and biliary tract (3) COPD (chronic obstructive pulmonary disease): Qualifiers: COPD type: chronic bronchitis Chronic bronchitis type: simple Qualified Code(s): J41.0 - Simple chronic bronchitis Status: Acute Code(s): J44.9 - Chronic obstructive pulmonary disease, unspecified (4) Cognitive disorder: Status: Suspected Code(s): F09 - Unspecified mental disorder due to known physiological condition (5) Graves disease: Status: Acute Code(s): E05.00 - Thyrotoxicosis with diffuse goiter without thyrotoxic crisis or storm Plan 74-year-old female with history of anxiety and depression, paranoid schizophrenia disorder, unspecified asthma, hyperlipidemia, ftt-vxyvvip-zoozsrrky type 2 diabetes, and hypertension admitted to adult Psychiatry on 01/22/25 with after making suicidal and homicidal statements GI consulted for FU of abnormal CT scan of the liver Labs revealed normal LFTs ABD CT scan showed an 3.1 cms Indeterminate hepatic lesions in segments 1 and [address] scan was reviewed with Radiology and no prior images were available No obvious cirrhosis on CT scan Liver lesion can be benign (hepatic hemangioma, focal nodular hyperplasia, hepatocellular adenoma) or malignant (hepatocellular carcinoma, cholangiocarcinoma or metastatic disease) Liver lesion is likely benign since no significant increase in size over the past year (See outside CT report below from 01/23/24) RECOMMENDATIONS: 1. Check AFP and CA 19-9 - order placed for am labs 2. Schedule hepatic protocol MR for further characterization of the hepatic lesion (MRI could not be performed today due to prescence of spinal neurostimulator. Pt's daughter will be bringing the remote for the Neurostimulator on Monday and MRI will likely be done on Monday/Monday if the neurostimulator battery pack is MRI compatible) ADDENDUM: 01/23/[address] SCAN AT AN OUTSIDE FACILITY WHICH SHOWED: 1. Nodular contour of the liver, stage otic appearance. Patent portal veins, normal gallbladder, no bile duct dilation. 2. 4.1 x 4 x 2.9 cm liver lesion identified within segment 7 abutting the IVC. This demonstrates hypervascularity and is concerning for underlying liver lesion. Further characterization with multiphase CT or MRI if the neurostimulator battery pack is MRI compatible. 3. No evidence for an acute abdomen. 02/14/2025 Patient seen case reviewed with gastroenterology also with patient's daughter current situation reviewed. Patient had abdominal CT scan when year ago with question of possible carcinoma patient had been complaining of abdominal pain on the inpatient psychiatry unit and then will CT scan ordered. See GI note. Patient on olanzapine and Abilify Lamictal significant less auditory hallucinations and preoccupation remains delusional preoccupied which seems chronic but less agitation Reason for continued inpatient stay Substantial Risk for: inability to function and rapid decompensation Time Spent With Patient Time: Total time managing care of this patient today ____ minutes.
--- NOTE | 2025-02-15 01:38 | PC.NURSE ---
Patient had a witnessed fall in the dining room after stubbing her toe on the chair she was attempting to sit into & sat on floor. Did not hit her head, no visible injury. Denies any pain, denies headache or dizziness. T- 96.9, HR- 80, RR- 16, BP- 144/66, SPO2- 97 %. Dr Ramos notified. No change in orders @ present.
[2025-02-15] MEDS: Levothyroxine Sodium 125 MCG TABLET PO (06:00)
[2025-02-15 09:09] LABS: Carbohydrate Antigen 19-9 22 U/mL (<34)
[2025-02-15 10:01] VITALS: BP 146/67; PULSE 76; RESP 16; TEMP 36.4; O2SAT 99
[2025-02-15] MEDS: Docusate Sodium 100 MG CAPSULE PO ×2 (10:06→20:19)
[2025-02-15] MEDS: Cholecalciferol (Vitamin D3) 10 MCG TABLET 20 MCG PO (10:06)
[2025-02-15] MEDS: metFORMIN HCl 500 MG TABLET PO ×2 (10:06→16:50)
[2025-02-15] MEDS: ARIPiprazole 20 MG TABLET PO (10:06)
[2025-02-15] MEDS: amantadine HCL 100 MG CAPSULE PO ×2 (10:06→20:18)
[2025-02-15] MEDS: Loratadine 10 MG TABLET PO (10:07)
[2025-02-15] MEDS: Benztropine Mesylate 0.5 MG TABLET PO ×2 (10:07→20:19)
[2025-02-15] MEDS: lisinopriL 10 MG TABLET PO (10:07)
[2025-02-15] MEDS: Acetaminophen 325 MG TABLET 650 MG PO (11:03)
[2025-02-15 20:00] VITALS: BP 143/68; PULSE 83; RESP 16; TEMP 36.2; O2SAT 98
[2025-02-15] MEDS: lamoTRIgine 100 MG TABLET 200 MG PO (20:18)
[2025-02-15] MEDS: OLANZapine ODT 10 MG TAB.RAPDIS 20 MG TRANSLINGU (20:19)
[2025-02-15] MEDS: Atorvastatin Calcium 80 MG TABLET PO (20:19)
[2025-02-16] MEDS: LORazepam 0.5 MG TABLET PO (01:48)
[2025-02-16] MEDS: OLANZapine 2.5 MG TABLET PO (01:48)
[2025-02-16] MEDS: Levothyroxine Sodium 125 MCG TABLET PO (06:13)
[2025-02-16 08:00] VITALS: BP 111/59; PULSE 90; RESP 16; TEMP 36; O2SAT 96
[2025-02-16] MEDS: ARIPiprazole 20 MG TABLET PO (08:22)
[2025-02-16] MEDS: metFORMIN HCl 500 MG TABLET PO ×2 (08:22→17:25)
[2025-02-16] MEDS: Cholecalciferol (Vitamin D3) 10 MCG TABLET 20 MCG PO (08:22)
[2025-02-16] MEDS: amantadine HCL 100 MG CAPSULE PO ×2 (08:22→20:48)
[2025-02-16] MEDS: Docusate Sodium 100 MG CAPSULE PO ×2 (08:22→20:48)
[2025-02-16] MEDS: Loratadine 10 MG TABLET PO (08:23)
[2025-02-16] MEDS: Benztropine Mesylate 0.5 MG TABLET PO ×2 (08:23→20:48)
[2025-02-16] MEDS: lisinopriL 10 MG TABLET PO (08:23)
--- NOTE | 2025-02-16 17:50 | HO.PSYCHPN ---
Subjective Subjective Date of Service: 02/16/25 Reason For Visit: other specified schizophrenia spectrum Interim History: Late entry note for patient seen on 02/15; discussed with team pt shared some delusional thinking about surgery w/ staff; pattern chart writer discussed MRI with which she agrees Mental Status Exam Mental Status Exam Narrative: Patient more somatically preoccupied and frequently stating she is having surgery difficulty maintaining reality basis regarding current medical issues Patient Appearance: Well Grooomed Patient Orientation: Person, Place and Situation (Somewhat) Level of Consciousness: Awake Patient Behavior: Appropriate Mood Description: Anxious Affect Description: Constricted Ability to Follow Directions: Fair Memory Description: Remote Impaired and Episodic Impaired Hallucinations: Auditory Delusions: Paranoid Ideation Thought Process: Rumination Thought Content: positive for Goal Oriented, negative for Suicidal Ideation or negative for Homicidal Ideation Depressive Symptoms: Increased Anxiety Judgement: Fair Judgement and Insight: Impaired. Diagnostics Vital Signs (24Hr): Vital Signs - 24 hr 02/15/25 20:00 02/16/25 08:00 Temperature 97.2 F 96.8 F Pulse Rate 83 90 Respiratory Rate 16 16 Blood Pressure 143/68 H 111/59 L Pulse Oximetry 98 96 Oxygen Delivery Method Room Air Room Air BMI result Body Mass Index 19.9 Labs 02/12/25 07:47 02/18/25 08:52 Labs: Laboratory Results - last 48 hr 02/12/25 02/14/25 07:47 07:48 CA 19-9 Antigen 22 JOSEF Titer TNP JOSEF Titer 2 TNP JOSEF Titer 3 TNP JOSEF Pattern TNP JOSEF Pattern 2 TNP JOSEF Pattern 3 TNP Imaging Radiology Impressions: ITS Impressions Thyroid Ultrasound 01/22/25 09:21 IMPRESSION: ACR TI RADS 0. Normal thyroid. ACR TI-RADS RECOMMENDATION REFERENCE: Ultrasound-guided fine-needle aspiration, followup ultrasound, no further follow up. * TR1 (0 point) and TR2 (2 points): No FNA or follow up. * TR3 (3 points): FNA if more than or equal to 2.5 cm in maximum dimension, followup ultrasound in 1, 3 and 5 years if 1.5 to 2.4 cm in maximum dimension. * TR4 (4-6 points): FNA if more than or equal to 1.5 cm in maximum dimension, followup ultrasound in 1, 2, 3 and 5 years if 1 to 1.4 cm in maximum dimension. * TR5 (more than or equal to 7 points): FNA if more than or equal to 1 cm in maximum dimension, followup ultrasound every year for 5 years if 0.5 to 0.9 cm in maximum dimension. * TR3, TR4 or TR5 nodules that are below the size threshold for followup receive no follow up. Electronically signed by: Juan Rosenberg MD 01/22/2025 10:02 AM EDT Medications Medications Current Medications Acetaminophen (Acetaminophen 325 Mg Tablet) 650 mg PO Q6H PRN PRN Reason: Headache/Pain, Scale 1-10 Last Admin: 02/15/25 11:03 Dose: 650 mg Al Hydroxide/Mg Hydroxide (Magnesium Hydrox/Alum Hydrox 30 Ml Oral.Susp) 30 ml PO Q6H PRN PRN Reason: Heartburn/Nausea Last Admin: 02/10/25 20:27 Dose: 30 ml Amantadine HCl (Amantadine Hcl 100 Mg Capsule) 100 mg PO BID [facility] Last Admin: 02/16/25 08:22 Dose: 100 mg Aripiprazole (Aripiprazole 20 Mg Tablet) 20 mg PO DAILY [facility] Last Admin: 02/16/25 08:22 Dose: 20 mg Atorvastatin Calcium (Atorvastatin Calcium 80 Mg Tablet) 80 mg PO BEDTIME [facility] Last Admin: 02/15/25 20:19 Dose: 80 mg Benztropine Mesylate (Benztropine Mesylate 0.5 Mg Tablet) 0.5 mg PO BID [facility] Last Admin: 02/16/25 08:23 Dose: 0.5 mg Docusate Sodium (Docusate Sodium 100 Mg Capsule) 100 mg PO BID [facility] Last Admin: 02/16/25 08:22 Dose: 100 mg Hydroxyzine HCl (Hydroxyzine Hcl 25 Mg Tablet) 25 mg PO Q6H PRN PRN Reason: mild anxiety Last Admin: 02/04/25 20:05 Dose: 25 mg Lamotrigine (Lamotrigine 100 Mg Tablet) 200 mg PO BEDTIME [facility] Last Admin: 02/15/25 20:18 Dose: 200 mg Levalbuterol HCl (Levalbuterol Hcl 1.25 Mg/3 Ml Vial.Neb) 1.25 mg INHALE Q4H PRN PRN Reason: Wheezing Levothyroxine Sodium (Levothyroxine Sodium 125 Mcg Tablet) 125 mcg PO DAILY@0600 [facility] Last Admin: 02/16/25 06:13 Dose: 125 mcg Lisinopril (Lisinopril 10 Mg Tablet) 10 mg PO DAILY [facility]; Protocol Last Admin: 02/16/25 08:23 Dose: 10 mg Loratadine (Loratadine 10 Mg Tablet) 10 mg PO DAILY [facility] Last Admin: 02/16/25 08:23 Dose: 10 mg Lorazepam (Lorazepam 0.5 Mg Tablet) 0.5 mg PO BID PRN PRN Reason: moderate, anxiety Last Admin: 02/16/25 01:48 Dose: 0.5 mg Magnesium Hydroxide (Milk Of Magnesia 30 Ml Oral.Susp) 30 ml PO DAILY PRN PRN Reason: Constipation Metformin HCl (Metformin Hcl 500 Mg Tablet) 500 mg PO BIDWM [facility] Last Admin: 02/16/25 17:25 Dose: 500 mg Nicotine (Nicotine 21 Mg Patch.Td24) 21 mg TRANSDERMA DAILY PRN PRN Reason: smoking cessation Nicotine Polacrilex (Nicotine Polacrilex 2 Mg Gum) 4 mg BUCCAL Q2H PRN PRN Reason: Nicotine Cravings Olanzapine (Olanzapine Odt 10 Mg Tab.Rapdis) 20 mg TRANSLINGU BEDTIME [facility] Last Admin: 02/15/25 20:19 Dose: 20 mg Olanzapine (Olanzapine 2.5 Mg Tablet) 2.5 mg PO Q4H PRN PRN Reason: Psychosis Last Admin: 02/16/25 01:48 Dose: 2.5 mg Sodium Chloride (0.9 % Sodium Chloride Flush 10 Ml Syringe) 5 ml IVFLUSH QSHIFT [facility] Last Admin: 02/16/25 13:16 Dose: Not Given Vitamin D (Cholecalciferol (Vitamin D3) 10 Mcg Tablet) 20 mcg PO DAILY [facility] Last Admin: 02/16/25 08:22 Dose: 20 mcg Allergies Allergies Allergy/AdvReac Type Severity Reaction Status Date / Time Seasonal Allergies Allergy Nasal Verified 01/21/25 16:35 congestion Assessment & Plan Assessment & Plan (1) Schizophrenia, paranoid type: Status: Acute Code(s): F20.0 - Paranoid schizophrenia (2) Abnormal CT of liver: Status: Acute Code(s): R93.2 - Abnormal findings on diagnostic imaging of liver and biliary tract (3) COPD (chronic obstructive pulmonary disease): Qualifiers: COPD type: chronic bronchitis Chronic bronchitis type: simple Qualified Code(s): J41.0 - Simple chronic bronchitis Status: Acute Code(s): J44.9 - Chronic obstructive pulmonary disease, unspecified (4) Cognitive disorder: Status: Suspected Code(s): F09 - Unspecified mental disorder due to known physiological condition (5) Graves disease: Status: Acute Code(s): E05.00 - Thyrotoxicosis with diffuse goiter without thyrotoxic crisis or storm Plan The patient likely has air trapping for the COPD. If she gets anxious or if she is dyspneic, she will likely have worsening air trapping making her breathing worse. Currently, she is well. start short acting beta agonist as needed Tobacco cessation Outpt PFTs/CXR Maybe a candidate for the Lung cancer screening program as an outpt 02/09: Continue current plans and regimen. Added Ativan 0.5 mg b.i.d. p.r.n. 02/10 Patient said she wants to go home... Says I feel good and I want to go home.. Today patient got anxious when learning she needed to get an echocardiogram; in her anxiety, she started yelling out saying Cecilia go ahead and tell them all my medical issues... Patient's daughter present who said that this is patient's downstairs neighbor whom she is paranoid about 02/11 Increase olanzapine at 20 mg olanzapine p.r.n. also ordered Abilify increased back to 20 mg check EKG patient perhaps seems to be responding somewhat to olanzapine had been severely agitated floridly hallucinating and agitated. Check abdominal CT scan given question of liver mass liver cancer and abdominal pain 02/12 Patient seems somewhat improved less agitated on olanzapine abdominal CT scan ordered case reviewed with patient's primary care office patient was supposed to have follow-up regarding question of liver mass patient complains of abdominal pain agreeable to abdominal CT scan could be contributing factor to psychiatric presentation. Patient was able to give informed consent 02/13/2025 Continue olanzapine Abilify patient remains delusional but significantly calmer less agitated able to cooperate with medical workup including abdominal/pelvic ultrasound which shows liver lesions. Gastroenterology involved 02/14/2025 Patient seen case reviewed with gastroenterology also with patient's daughter current situation reviewed. Patient had abdominal CT scan when year ago with question of possible carcinoma patient had been complaining of abdominal pain on the inpatient psychiatry unit and then will CT scan ordered. See GI note. Patient on olanzapine and Abilify Lamictal significant less auditory hallucinations and preoccupation remains delusional preoccupied which seems chronic but less agitation 02/15; discussed MRI which she is amenable; patient intermittently expressing delusional thoughts Gastroenterology following patient: 74-year-old female with history of anxiety and depression, paranoid schizophrenia disorder, unspecified asthma, hyperlipidemia, [id number] type 2 diabetes, and hypertension admitted to adult Psychiatry on 01/22/25 with after making suicidal and homicidal statements GI consulted for FU of abnormal CT scan of the liver Labs revealed normal LFTs ABD CT scan showed an 3.1 cms Indeterminate hepatic lesions in segments 1 and [address] scan was reviewed with Radiology and no prior images were available No obvious cirrhosis on CT scan Liver lesion can be benign (hepatic hemangioma, focal nodular hyperplasia, hepatocellular adenoma) or malignant (hepatocellular carcinoma, cholangiocarcinoma or metastatic disease) Liver lesion is likely benign since no significant increase in size over the past year (See outside CT report below from 01/23/24) RECOMMENDATIONS: 1. Check AFP and CA 19-9 - order placed for am labs 2. Schedule hepatic protocol MR for further characterization of the hepatic lesion (MRI could not be performed today due to prescence of spinal neurostimulator. Pt's daughter will be bringing the remote for the Neurostimulator on Monday and MRI will likely be done on Monday/Monday if the neurostimulator battery pack is MRI compatible) ADDENDUM: 01/23/[address] SCAN AT AN OUTSIDE FACILITY WHICH SHOWED: 1. Nodular contour of the liver, stage otic appearance. Patent portal veins, normal gallbladder, no bile duct dilation. 2. 4.1 x 4 x 2.9 cm liver lesion identified within segment 7 abutting the IVC. This demonstrates hypervascularity and is concerning for underlying liver lesion. Further characterization with multiphase CT or MRI if the neurostimulator battery pack is MRI compatible. 3. No evidence for an acute abdomen. 02/14/2025 Patient seen case reviewed with gastroenterology also with patient's daughter current situation reviewed. Patient had abdominal CT scan when year ago with question of possible carcinoma patient had been complaining of abdominal pain on the inpatient psychiatry unit and then will CT scan ordered. See GI note. Patient on olanzapine and Abilify Lamictal significant less auditory hallucinations and preoccupation remains delusional preoccupied which seems chronic but less agitation Patient educated on: diagnosis Informed Consent: does not understand Reason for continued inpatient stay Substantial Risk for: inability to function Time Spent With Patient Time: Total time managing care of this patient today ____ minutes.
--- NOTE | 2025-02-16 18:03 | HO.PSYCHPN ---
Subjective Subjective Date of Service: 02/16/25 Reason For Visit: other specified schizophrenia spectrum Interim History: Met with patient; discussed with team pt says she's good no change in presentation Mental Status Exam Mental Status Exam Narrative: Patient more somatically preoccupied and frequently stating she is having surgery difficulty maintaining reality basis regarding current medical issues Patient Appearance: Well Grooomed Patient Orientation: Person, Place and Situation (Somewhat) Level of Consciousness: Awake Patient Behavior: Appropriate Mood Description: Anxious Affect Description: Constricted Ability to Follow Directions: Fair Memory Description: Remote Impaired and Episodic Impaired Hallucinations: Auditory Delusions: Paranoid Ideation Thought Process: Rumination Thought Content: positive for Goal Oriented, negative for Suicidal Ideation or negative for Homicidal Ideation Depressive Symptoms: Increased Anxiety Judgement: Fair Judgement and Insight: Impaired. Diagnostics Vital Signs (24Hr): Vital Signs - 24 hr 02/15/25 20:00 02/16/25 08:00 Temperature 97.2 F 96.8 F Pulse Rate 83 90 Respiratory Rate 16 16 Blood Pressure 143/68 H 111/59 L Pulse Oximetry 98 96 Oxygen Delivery Method Room Air Room Air BMI result Body Mass Index 19.9 Labs 02/12/25 07:47 02/18/25 08:52 Labs: Laboratory Results - last 48 hr 02/12/25 02/14/25 07:47 07:48 CA 19-9 Antigen 22 JOSEF Titer TNP JOSEF Titer 2 TNP JOSEF Titer 3 TNP JOSEF Pattern TNP JOSEF Pattern 2 TNP JOSEF Pattern 3 TNP Imaging Radiology Impressions: ITS Impressions Thyroid Ultrasound 01/22/25 09:21 IMPRESSION: ACR TI RADS 0. Normal thyroid. ACR TI-RADS RECOMMENDATION REFERENCE: Ultrasound-guided fine-needle aspiration, followup ultrasound, no further follow up. * TR1 (0 point) and TR2 (2 points): No FNA or follow up. * TR3 (3 points): FNA if more than or equal to 2.5 cm in maximum dimension, followup ultrasound in 1, 3 and 5 years if 1.5 to 2.4 cm in maximum dimension. * TR4 (4-6 points): FNA if more than or equal to 1.5 cm in maximum dimension, followup ultrasound in 1, 2, 3 and 5 years if 1 to 1.4 cm in maximum dimension. * TR5 (more than or equal to 7 points): FNA if more than or equal to 1 cm in maximum dimension, followup ultrasound every year for 5 years if 0.5 to 0.9 cm in maximum dimension. * TR3, TR4 or TR5 nodules that are below the size threshold for followup receive no follow up. Electronically signed by: Juan Rosenberg MD 01/22/2025 10:02 AM EDT RP Medications Medications Current Medications Acetaminophen (Acetaminophen 325 Mg Tablet) 650 mg PO Q6H PRN PRN Reason: Headache/Pain, Scale 1-10 Last Admin: 02/15/25 11:03 Dose: 650 mg Al Hydroxide/Mg Hydroxide (Magnesium Hydrox/Alum Hydrox 30 Ml Oral.Susp) 30 ml PO Q6H PRN PRN Reason: Heartburn/Nausea Last Admin: 02/10/25 20:27 Dose: 30 ml Amantadine HCl (Amantadine Hcl 100 Mg Capsule) 100 mg PO BID [facility] Last Admin: 02/16/25 08:22 Dose: 100 mg Aripiprazole (Aripiprazole 20 Mg Tablet) 20 mg PO DAILY [facility] Last Admin: 02/16/25 08:22 Dose: 20 mg Atorvastatin Calcium (Atorvastatin Calcium 80 Mg Tablet) 80 mg PO BEDTIME [facility] Last Admin: 02/15/25 20:19 Dose: 80 mg Benztropine Mesylate (Benztropine Mesylate 0.5 Mg Tablet) 0.5 mg PO BID [facility] Last Admin: 02/16/25 08:23 Dose: 0.5 mg Docusate Sodium (Docusate Sodium 100 Mg Capsule) 100 mg PO BID [facility] Last Admin: 02/16/25 08:22 Dose: 100 mg Hydroxyzine HCl (Hydroxyzine Hcl 25 Mg Tablet) 25 mg PO Q6H PRN PRN Reason: mild anxiety Last Admin: 02/04/25 20:05 Dose: 25 mg Lamotrigine (Lamotrigine 100 Mg Tablet) 200 mg PO BEDTIME [facility] Last Admin: 02/15/25 20:18 Dose: 200 mg Levalbuterol HCl (Levalbuterol Hcl 1.25 Mg/3 Ml Vial.Neb) 1.25 mg INHALE Q4H PRN PRN Reason: Wheezing Levothyroxine Sodium (Levothyroxine Sodium 125 Mcg Tablet) 125 mcg PO DAILY@0600 [facility] Last Admin: 02/16/25 06:13 Dose: 125 mcg Lisinopril (Lisinopril 10 Mg Tablet) 10 mg PO DAILY [facility]; Protocol Last Admin: 02/16/25 08:23 Dose: 10 mg Loratadine (Loratadine 10 Mg Tablet) 10 mg PO DAILY [facility] Last Admin: 02/16/25 08:23 Dose: 10 mg Lorazepam (Lorazepam 0.5 Mg Tablet) 0.5 mg PO BID PRN PRN Reason: moderate, anxiety Last Admin: 02/16/25 01:48 Dose: 0.5 mg Magnesium Hydroxide (Milk Of Magnesia 30 Ml Oral.Susp) 30 ml PO DAILY PRN PRN Reason: Constipation Metformin HCl (Metformin Hcl 500 Mg Tablet) 500 mg PO BIDWM [facility] Last Admin: 02/16/25 17:25 Dose: 500 mg Nicotine (Nicotine 21 Mg Patch.Td24) 21 mg TRANSDERMA DAILY PRN PRN Reason: smoking cessation Nicotine Polacrilex (Nicotine Polacrilex 2 Mg Gum) 4 mg BUCCAL Q2H PRN PRN Reason: Nicotine Cravings Olanzapine (Olanzapine Odt 10 Mg Tab.Rapdis) 20 mg TRANSLINGU BEDTIME [facility] Last Admin: 02/15/25 20:19 Dose: 20 mg Olanzapine (Olanzapine 2.5 Mg Tablet) 2.5 mg PO Q4H PRN PRN Reason: Psychosis Last Admin: 02/16/25 01:48 Dose: 2.5 mg Sodium Chloride (0.9 % Sodium Chloride Flush 10 Ml Syringe) 5 ml IVFLUSH QSHIFT [facility] Last Admin: 02/16/25 13:16 Dose: Not Given Vitamin D (Cholecalciferol (Vitamin D3) 10 Mcg Tablet) 20 mcg PO DAILY [facility] Last Admin: 02/16/25 08:22 Dose: 20 mcg Allergies Allergies Allergy/AdvReac Type Severity Reaction Status Date / Time Seasonal Allergies Allergy Nasal Verified 01/21/25 16:35 congestion Assessment & Plan Assessment & Plan (1) Schizophrenia, paranoid type: Status: Acute Code(s): F20.0 - Paranoid schizophrenia (2) Abnormal CT of liver: Status: Acute Code(s): R93.2 - Abnormal findings on diagnostic imaging of liver and biliary tract (3) COPD (chronic obstructive pulmonary disease): Qualifiers: COPD type: chronic bronchitis Chronic bronchitis type: simple Qualified Code(s): J41.0 - Simple chronic bronchitis Status: Acute Code(s): J44.9 - Chronic obstructive pulmonary disease, unspecified (4) Cognitive disorder: Status: Suspected Code(s): F09 - Unspecified mental disorder due to known physiological condition (5) Graves disease: Status: Acute Code(s): E05.00 - Thyrotoxicosis with diffuse goiter without thyrotoxic crisis or storm Plan The patient likely has air trapping for the COPD. If she gets anxious or if she is dyspneic, she will likely have worsening air trapping making her breathing worse. Currently, she is well. start short acting beta agonist as needed Tobacco cessation Outpt PFTs/CXR Maybe a candidate for the Lung cancer screening program as an outpt 02/09: Continue current plans and regimen. Added Ativan 0.5 mg b.i.d. p.r.n. 02/10 Patient said she wants to go home... Says I feel good and I want to go home.. Today patient got anxious when learning she needed to get an echocardiogram; in her anxiety, she started yelling out saying Cecilia go ahead and tell them all my medical issues... Patient's daughter present who said that this is patient's downstairs neighbor whom she is paranoid about 02/11 Increase olanzapine at 20 mg olanzapine p.r.n. also ordered Abilify increased back to 20 mg check EKG patient perhaps seems to be responding somewhat to olanzapine had been severely agitated floridly hallucinating and agitated. Check abdominal CT scan given question of liver mass liver cancer and abdominal pain 02/12 Patient seems somewhat improved less agitated on olanzapine abdominal CT scan ordered case reviewed with patient's primary care office patient was supposed to have follow-up regarding question of liver mass patient complains of abdominal pain agreeable to abdominal CT scan could be contributing factor to psychiatric presentation. Patient was able to give informed consent 02/13/2025 Continue olanzapine Abilify patient remains delusional but significantly calmer less agitated able to cooperate with medical workup including abdominal/pelvic ultrasound which shows liver lesions. Gastroenterology involved 02/14/2025 Patient seen case reviewed with gastroenterology also with patient's daughter current situation reviewed. Patient had abdominal CT scan when year ago with question of possible carcinoma patient had been complaining of abdominal pain on the inpatient psychiatry unit and then will CT scan ordered. See GI note. Patient on olanzapine and Abilify Lamictal significant less auditory hallucinations and preoccupation remains delusional preoccupied which seems chronic but less agitation 02/15; discussed MRI which she is amenable; patient intermittently expressing delusional thoughts Gastroenterology following patient: 74-year-old female with history of anxiety and depression, paranoid schizophrenia disorder, unspecified asthma, hyperlipidemia, [id number] type 2 diabetes, and hypertension admitted to adult Psychiatry on 01/22/25 with after making suicidal and homicidal statements GI consulted for FU of abnormal CT scan of the liver Labs revealed normal LFTs ABD CT scan showed an 3.1 cms Indeterminate hepatic lesions in segments 1 and [address] scan was reviewed with Radiology and no prior images were available No obvious cirrhosis on CT scan Liver lesion can be benign (hepatic hemangioma, focal nodular hyperplasia, hepatocellular adenoma) or malignant (hepatocellular carcinoma, cholangiocarcinoma or metastatic disease) Liver lesion is likely benign since no significant increase in size over the past year (See outside CT report below from 01/23/24) RECOMMENDATIONS: 1. Check AFP and CA 19-9 - order placed for am labs 2. Schedule hepatic protocol MR for further characterization of the hepatic lesion (MRI could not be performed today due to prescence of spinal neurostimulator. Pt's daughter will be bringing the remote for the Neurostimulator on Monday and MRI will likely be done on Monday/Monday if the neurostimulator battery pack is MRI compatible) ADDENDUM: 01/23/[address] SCAN AT AN OUTSIDE FACILITY WHICH SHOWED: 1. Nodular contour of the liver, stage otic appearance. Patent portal veins, normal gallbladder, no bile duct dilation. 2. 4.1 x 4 x 2.9 cm liver lesion identified within segment 7 abutting the IVC. This demonstrates hypervascularity and is concerning for underlying liver lesion. Further characterization with multiphase CT or MRI if the neurostimulator battery pack is MRI compatible. 3. No evidence for an acute abdomen. 02/14/2025 Patient seen case reviewed with gastroenterology also with patient's daughter current situation reviewed. Patient had abdominal CT scan when year ago with question of possible carcinoma patient had been complaining of abdominal pain on the inpatient psychiatry unit and then will CT scan ordered. See GI note. Patient on olanzapine and Abilify Lamictal significant less auditory hallucinations and preoccupation remains delusional preoccupied which seems chronic but less agitation Informed Consent: does not understand Reason for continued inpatient stay Substantial Risk for: inability to function Time Spent With Patient Time: Total time managing care of this patient today ____ minutes.
[2025-02-16 20:00] VITALS: BP 116/63; PULSE 78; RESP 18; TEMP 36.6; O2SAT 98
[2025-02-16] MEDS: Atorvastatin Calcium 80 MG TABLET PO (20:48)
[2025-02-16] MEDS: OLANZapine ODT 10 MG TAB.RAPDIS 20 MG TRANSLINGU (20:48)
[2025-02-16] MEDS: lamoTRIgine 100 MG TABLET 200 MG PO (20:48)
[2025-02-17] MEDS: Levothyroxine Sodium 125 MCG TABLET PO (06:14)
[2025-02-17 08:00] VITALS: BP 130/61; PULSE 86; RESP 18; TEMP 36.6; O2SAT 98
[2025-02-17] MEDS: Loratadine 10 MG TABLET PO (08:10)
[2025-02-17] MEDS: Docusate Sodium 100 MG CAPSULE PO ×2 (08:10→20:34)
[2025-02-17] MEDS: metFORMIN HCl 500 MG TABLET PO ×2 (08:10→16:02)
[2025-02-17] MEDS: ARIPiprazole 20 MG TABLET PO (08:11)
[2025-02-17] MEDS: Benztropine Mesylate 0.5 MG TABLET PO ×2 (08:11→20:34)
[2025-02-17] MEDS: Cholecalciferol (Vitamin D3) 10 MCG TABLET 20 MCG PO (08:11)
[2025-02-17] MEDS: lisinopriL 10 MG TABLET PO (08:11)
[2025-02-17] MEDS: amantadine HCL 100 MG CAPSULE PO ×2 (08:11→20:34)
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
[2025-02-17 20:00] VITALS: BP 128/58; PULSE 76; RESP 18; TEMP 36.2; O2SAT 98
[2025-02-17] MEDS: OLANZapine ODT 10 MG TAB.RAPDIS 20 MG TRANSLINGU (20:33)
[2025-02-17] MEDS: lamoTRIgine 100 MG TABLET 200 MG PO (20:34)
[2025-02-17] MEDS: LORazepam 0.5 MG TABLET PO (20:34)
[2025-02-17] MEDS: Atorvastatin Calcium 80 MG TABLET PO (20:34)
[2025-02-18] MEDS: Levothyroxine Sodium 125 MCG TABLET PO (05:31)
[2025-02-18 07:43] LABS: Alpha Fetoprotein 5.2 ng/mL
[2025-02-18 08:00] VITALS: BP 135/60; PULSE 82; RESP 18; TEMP 2.4; TEMP 36.3; O2SAT 100
[2025-02-18] MEDS: Docusate Sodium 100 MG CAPSULE PO ×2 (08:42→19:27)
[2025-02-18] MEDS: lisinopriL 10 MG TABLET PO (08:42)
[2025-02-18] MEDS: ARIPiprazole 20 MG TABLET PO (08:42)
[2025-02-18] MEDS: metFORMIN HCl 500 MG TABLET PO ×2 (08:42→15:32)
[2025-02-18] MEDS: Cholecalciferol (Vitamin D3) 10 MCG TABLET 20 MCG PO (08:42)
[2025-02-18] MEDS: Loratadine 10 MG TABLET PO (08:42)
[2025-02-18] MEDS: Benztropine Mesylate 0.5 MG TABLET PO ×2 (08:42→19:27)
[2025-02-18] MEDS: amantadine HCL 100 MG CAPSULE PO ×2 (08:42→19:27)
[2025-02-18 09:30] LABS: Creatinine Clr Calc Pharmacy 56.8; Estimated Glomerular Filt Rate > 60
[2025-02-18] MEDS: LORazepam 0.5 MG TABLET PO (12:41)
[2025-02-18] MEDS: OLANZapine 2.5 MG TABLET PO (15:32)
[2025-02-18] MEDS: hydrOXYzine HCL 25 MG TABLET PO (15:32)
--- NOTE | 2025-02-18 16:48 | HO.PSYCHPN ---
Subjective Subjective Date of Service: 02/18/25 Reason For Visit: other specified schizophrenia spectrum Subjective Notes: Conditional Voluntary Interim History: Pt slept through the night. she is taking medications as prescribed. She is upset about being here asks this communications writer for discharged today. She initially appeared calmer, and less paranoid, but later in the day was accusing staff of conspiring against her. She denied SI/HI. MRI had to be cancelled as remote control for pelvic device not found at her home. Mental Status Exam Mental Status Exam Narrative: Appearance: casual clothing, good hygiene, in NAD Behavior: guarded, mildly irritable Psychomotor: no agitation at the time of meeting with this communications writer but later more agitated. Speech: mostly clear, normal rate/rhythm/volume, spontaneous TP: linear TC: wanting to be discharged soon Mood: fine Affect: somewhat suspicious SI: denies HI; none VH/AH: residual Delusions: residual paranoid ideas Insight/judgment: impaired x 2. memory/cog: alert, oriented x3 except for situation. Diagnostics Vital Signs (24Hr): Vital Signs - 24 hr 02/17/25 20:00 02/18/25 08:00 Temperature 97.2 F 36.3 F L Pulse Rate 76 82 Respiratory Rate 18 18 Blood Pressure 128/58 L 135/60 Pulse Oximetry 98 100 Oxygen Delivery Method Room Air Room Air BMI result Body Mass Index 19.9 Labs 02/12/25 07:47 02/18/25 08:52 Labs: Laboratory Results - last 48 hr 02/14/25 02/18/25 07:48 08:52 Creatinine 0.71 Estim Creat Clear Calc 56.8 Estimated GFR > 60 Alpha Fetoprotein 5.2 Imaging Radiology Impressions: ITS Impressions Thyroid Ultrasound 01/22/25 09:21 IMPRESSION: ACR TI RADS 0. Normal thyroid. ACR TI-RADS RECOMMENDATION REFERENCE: Ultrasound-guided fine-needle aspiration, followup ultrasound, no further follow up. * TR1 (0 point) and TR2 (2 points): No FNA or follow up. * TR3 (3 points): FNA if more than or equal to 2.5 cm in maximum dimension, followup ultrasound in 1, 3 and 5 years if 1.5 to 2.4 cm in maximum dimension. * TR4 (4-6 points): FNA if more than or equal to 1.5 cm in maximum dimension, followup ultrasound in 1, 2, 3 and 5 years if 1 to 1.4 cm in maximum dimension. * TR5 (more than or equal to 7 points): FNA if more than or equal to 1 cm in maximum dimension, followup ultrasound every year for 5 years if 0.5 to 0.9 cm in maximum dimension. * TR3, TR4 or TR5 nodules that are below the size threshold for followup receive no follow up. Electronically signed by: Juan Rosenberg MD 01/22/2025 10:02 AM EDT Medications Medications Current Medications Acetaminophen (Acetaminophen 325 Mg Tablet) 650 mg PO Q6H PRN PRN Reason: Headache/Pain, Scale 1-10 Last Admin: 02/15/25 11:03 Dose: 650 mg Al Hydroxide/Mg Hydroxide (Magnesium Hydrox/Alum Hydrox 30 Ml Oral.Susp) 30 ml PO Q6H PRN PRN Reason: Heartburn/Nausea Last Admin: 02/10/25 20:27 Dose: 30 ml Amantadine HCl (Amantadine Hcl 100 Mg Capsule) 100 mg PO BID [facility] Last Admin: 02/18/25 08:42 Dose: 100 mg Aripiprazole (Aripiprazole 20 Mg Tablet) 20 mg PO DAILY [facility] Last Admin: 02/18/25 08:42 Dose: 20 mg Atorvastatin Calcium (Atorvastatin Calcium 80 Mg Tablet) 80 mg PO BEDTIME [facility] Last Admin: 02/17/25 20:34 Dose: 80 mg Benztropine Mesylate (Benztropine Mesylate 0.5 Mg Tablet) 0.5 mg PO BID [facility] Last Admin: 02/18/25 08:42 Dose: 0.5 mg Docusate Sodium (Docusate Sodium 100 Mg Capsule) 100 mg PO BID [facility] Last Admin: 02/18/25 08:42 Dose: 100 mg Hydroxyzine HCl (Hydroxyzine Hcl 25 Mg Tablet) 25 mg PO Q6H PRN PRN Reason: mild anxiety Last Admin: 02/18/25 15:32 Dose: 25 mg Lamotrigine (Lamotrigine 100 Mg Tablet) 200 mg PO BEDTIME [facility] Last Admin: 02/17/25 20:34 Dose: 200 mg Levalbuterol HCl (Levalbuterol Hcl 1.25 Mg/3 Ml Vial.Neb) 1.25 mg INHALE Q4H PRN PRN Reason: Wheezing Levothyroxine Sodium (Levothyroxine Sodium 125 Mcg Tablet) 125 mcg PO DAILY@0600 [facility] Last Admin: 02/18/25 05:31 Dose: 125 mcg Lisinopril (Lisinopril 10 Mg Tablet) 10 mg PO DAILY [facility]; Protocol Last Admin: 02/18/25 08:42 Dose: 10 mg Loratadine (Loratadine 10 Mg Tablet) 10 mg PO DAILY [facility] Last Admin: 02/18/25 08:42 Dose: 10 mg Lorazepam (Lorazepam 0.5 Mg Tablet) 0.5 mg PO BID PRN PRN Reason: moderate, anxiety Last Admin: 02/18/25 12:41 Dose: 0.5 mg Magnesium Hydroxide (Milk Of Magnesia 30 Ml Oral.Susp) 30 ml PO DAILY PRN PRN Reason: Constipation Metformin HCl (Metformin Hcl 500 Mg Tablet) 500 mg PO BIDWM [facility] Last Admin: 02/18/25 15:32 Dose: 500 mg Nicotine (Nicotine 21 Mg Patch.Td24) 21 mg TRANSDERMA DAILY PRN PRN Reason: smoking cessation Nicotine Polacrilex (Nicotine Polacrilex 2 Mg Gum) 4 mg BUCCAL Q2H PRN PRN Reason: Nicotine Cravings Olanzapine (Olanzapine Odt 10 Mg Tab.Rapdis) 20 mg TRANSLINGU BEDTIME [facility] Last Admin: 02/17/25 20:33 Dose: 20 mg Olanzapine (Olanzapine 2.5 Mg Tablet) 2.5 mg PO Q4H PRN PRN Reason: Psychosis Last Admin: 02/18/25 15:32 Dose: 2.5 mg Sodium Chloride (0.9 % Sodium Chloride Flush 10 Ml Syringe) 5 ml IVFLUSH QSHIFT [facility] Last Admin: 02/18/25 12:26 Dose: Not Given Vitamin D (Cholecalciferol (Vitamin D3) 10 Mcg Tablet) 20 mcg PO DAILY [facility] Last Admin: 02/18/25 08:42 Dose: 20 mcg Allergies Allergies Allergy/AdvReac Type Severity Reaction Status Date / Time Seasonal Allergies Allergy Nasal Verified 01/21/25 16:35 congestion Assessment & Plan Assessment & Plan (1) Schizophrenia, paranoid type: Status: Acute Code(s): F20.0 - Paranoid schizophrenia (2) Abnormal CT of liver: Status: Acute Code(s): R93.2 - Abnormal findings on diagnostic imaging of liver and biliary tract (3) COPD (chronic obstructive pulmonary disease): Qualifiers: COPD type: chronic bronchitis Chronic bronchitis type: simple Qualified Code(s): J41.0 - Simple chronic bronchitis Status: Acute Code(s): J44.9 - Chronic obstructive pulmonary disease, unspecified (4) Cognitive disorder: Status: Suspected Code(s): F09 - Unspecified mental disorder due to known physiological condition (5) Graves disease: Status: Acute Code(s): E05.00 - Thyrotoxicosis with diffuse goiter without thyrotoxic crisis or storm Plan The patient likely has air trapping for the COPD. If she gets anxious or if she is dyspneic, she will likely have worsening air trapping making her breathing worse. Currently, she is well. start short acting beta agonist as needed Tobacco cessation Outpt PFTs/CXR Maybe a candidate for the Lung cancer screening program as an outpt 02/09: Continue current plans and regimen. Added Ativan 0.5 mg b.i.d. p.r.n. 02/10 Patient said she wants to go home... Says I feel good and I want to go home.. Today patient got anxious when learning she needed to get an echocardiogram; in her anxiety, she started yelling out saying Cecilia go ahead and tell them all my medical issues... Patient's daughter present who said that this is patient's downstairs neighbor whom she is paranoid about 02/11 Increase olanzapine at 20 mg olanzapine p.r.n. also ordered Abilify increased back to 20 mg check EKG patient perhaps seems to be responding somewhat to olanzapine had been severely agitated floridly hallucinating and agitated. Check abdominal CT scan given question of liver mass liver cancer and abdominal pain 02/12 Patient seems somewhat improved less agitated on olanzapine abdominal CT scan ordered case reviewed with patient's primary care office patient was supposed to have follow-up regarding question of liver mass patient complains of abdominal pain agreeable to abdominal CT scan could be contributing factor to psychiatric presentation. Patient was able to give informed consent 02/13/2025 Continue olanzapine Abilify patient remains delusional but significantly calmer less agitated able to cooperate with medical workup including abdominal/pelvic ultrasound which shows liver lesions. Gastroenterology involved 02/14/2025 Patient seen case reviewed with gastroenterology also with patient's daughter current situation reviewed. Patient had abdominal CT scan when year ago with question of possible carcinoma patient had been complaining of abdominal pain on the inpatient psychiatry unit and then will CT scan ordered. See GI note. Patient on olanzapine and Abilify Lamictal significant less auditory hallucinations and preoccupation remains delusional preoccupied which seems chronic but less agitation 02/15; discussed MRI which she is amenable; patient intermittently expressing delusional thoughts 02/17 appears less paranoid, less psychotic, less accusatory to staff here on the unit. 02/18 continue tx. Gastroenterology following patient: 74-year-old female with history of anxiety and depression, paranoid schizophrenia disorder, unspecified asthma, hyperlipidemia, [id number] type 2 diabetes, and hypertension admitted to adult Psychiatry on 01/22/25 with after making suicidal and homicidal statements GI consulted for FU of abnormal CT scan of the liver Labs revealed normal LFTs ABD CT scan showed an 3.1 cms Indeterminate hepatic lesions in segments 1 and [address] scan was reviewed with Radiology and no prior images were available No obvious cirrhosis on CT scan Liver lesion can be benign (hepatic hemangioma, focal nodular hyperplasia, hepatocellular adenoma) or malignant (hepatocellular carcinoma, cholangiocarcinoma or metastatic disease) Liver lesion is likely benign since no significant increase in size over the past year (See outside CT report below from 01/23/24) RECOMMENDATIONS: 1. Check AFP and CA 19-9 - order placed for am labs 2. Schedule hepatic protocol MR for further characterization of the hepatic lesion (MRI could not be performed today due to prescence of spinal neurostimulator. Pt's daughter will be bringing the remote for the Neurostimulator on Monday and MRI will likely be done on Monday/Monday if the neurostimulator battery pack is MRI compatible) ADDENDUM: 01/23/[address] SCAN AT AN OUTSIDE FACILITY WHICH SHOWED: 1. Nodular contour of the liver, stage otic appearance. Patent portal veins, normal gallbladder, no bile duct dilation. 2. 4.1 x 4 x 2.9 cm liver lesion identified within segment 7 abutting the IVC. This demonstrates hypervascularity and is concerning for underlying liver lesion. Further characterization with multiphase CT or MRI if the neurostimulator battery pack is MRI compatible. 3. No evidence for an acute abdomen. 02/14/2025 Patient seen case reviewed with gastroenterology also with patient's daughter current situation reviewed. Patient had abdominal CT scan when year ago with question of possible carcinoma patient had been complaining of abdominal pain on the inpatient psychiatry unit and then will CT scan ordered. See GI note. Patient on olanzapine and Abilify Lamictal significant less auditory hallucinations and preoccupation remains delusional preoccupied which seems chronic but less agitation Reason for continued inpatient stay Substantial Risk for: inability to function Time Spent With Patient Time: Total time managing care of this patient today ____ minutes.
[2025-02-18] MEDS: OLANZapine ODT 10 MG TAB.RAPDIS 20 MG TRANSLINGU (19:27)
[2025-02-18] MEDS: Atorvastatin Calcium 80 MG TABLET PO (19:27)
[2025-02-18] MEDS: lamoTRIgine 100 MG TABLET 200 MG PO (19:27)
[2025-02-18 19:28] VITALS: BP 126/87; PULSE 64; RESP 16; TEMP 36.1; O2SAT 99
[2025-02-19] MEDS: Levothyroxine Sodium 125 MCG TABLET PO (05:09)
[2025-02-19 08:00] VITALS: BP 114/60; PULSE 83; RESP 18; TEMP 36.2; O2SAT 99
[2025-02-19] MEDS: amantadine HCL 100 MG CAPSULE PO ×2 (08:49→20:12)
[2025-02-19] MEDS: OLANZapine 2.5 MG TABLET PO ×3 (08:49→18:25)
[2025-02-19] MEDS: Cholecalciferol (Vitamin D3) 10 MCG TABLET 20 MCG PO (08:49)
[2025-02-19] MEDS: ARIPiprazole 20 MG TABLET PO (08:49)
[2025-02-19] MEDS: Docusate Sodium 100 MG CAPSULE PO ×2 (08:49→20:12)
[2025-02-19] MEDS: metFORMIN HCl 500 MG TABLET PO ×2 (08:49→16:28)
[2025-02-19] MEDS: lisinopriL 10 MG TABLET PO (08:49)
[2025-02-19] MEDS: Benztropine Mesylate 0.5 MG TABLET PO ×2 (08:49→20:12)
[2025-02-19] MEDS: Loratadine 10 MG TABLET PO (08:49)
--- NOTE | 2025-02-19 08:52 | HO.PSYCHPN ---
Subjective Subjective Date of Service: 02/19/25 Reason For Visit: other specified schizophrenia spectrum Subjective Notes: Conditional Voluntary and 3 Day Interim History: pt seen in psych f/u mood anxious easily agitated labile has been yelling in milieu repeated calling family with delusional concerns Mental Status Exam Mental Status Exam Narrative: Appearance: casual clothing, good hygiene, in NAD Behavior: irritable Psychomotor: no agitation at the time of meeting with this sql report writer but later more agitated. Speech: mostly clear,pressured s TP: linear racing TC: wanting to be discharged soon Mood: angry agaitetd Affect:labile s SI: if if a m sent to certain place HI; none VH/AH: [facility] going to be sent diff places Delusions: multiple delusions re neighbors being sent to diff places Insight/judgment: impaired x 2. memory/cog: alert, oriented x3 except for situation. Diagnostics Vital Signs (24Hr): Vital Signs - 24 hr 02/18/25 19:28 Temperature 97 F Pulse Rate 64 Respiratory Rate 16 Blood Pressure 126/87 Pulse Oximetry 99 Oxygen Delivery Method Room Air BMI result Body Mass Index 19.9 Labs 02/12/25 07:47 02/18/25 08:52 Labs: Laboratory Results - last 48 hr 02/14/25 02/18/25 07:48 08:52 Creatinine 0.71 Estim Creat Clear Calc 56.8 Estimated GFR > 60 Alpha Fetoprotein 5.2 Imaging Radiology Impressions: ITS Impressions Thyroid Ultrasound 01/22/25 09:21 IMPRESSION: ACR TI RADS 0. Normal thyroid. ACR TI-RADS RECOMMENDATION REFERENCE: Ultrasound-guided fine-needle aspiration, followup ultrasound, no further follow up. * TR1 (0 point) and TR2 (2 points): No FNA or follow up. * TR3 (3 points): FNA if more than or equal to 2.5 cm in maximum dimension, followup ultrasound in 1, 3 and 5 years if 1.5 to 2.4 cm in maximum dimension. * TR4 (4-6 points): FNA if more than or equal to 1.5 cm in maximum dimension, followup ultrasound in 1, 2, 3 and 5 years if 1 to 1.4 cm in maximum dimension. * TR5 (more than or equal to 7 points): FNA if more than or equal to 1 cm in maximum dimension, followup ultrasound every year for 5 years if 0.5 to 0.9 cm in maximum dimension. * TR3, TR4 or TR5 nodules that are below the size threshold for followup receive no follow up. Electronically signed by: Juan Rosenberg MD 01/22/2025 10:02 AM EDT Medications Medications Current Medications Acetaminophen (Acetaminophen 325 Mg Tablet) 650 mg PO Q6H PRN PRN Reason: Headache/Pain, Scale 1-10 Last Admin: 02/15/25 11:03 Dose: 650 mg Al Hydroxide/Mg Hydroxide (Magnesium Hydrox/Alum Hydrox 30 Ml Oral.Susp) 30 ml PO Q6H PRN PRN Reason: Heartburn/Nausea Last Admin: 02/10/25 20:27 Dose: 30 ml Amantadine HCl (Amantadine Hcl 100 Mg Capsule) 100 mg PO BID [facility] Last Admin: 02/19/25 08:49 Dose: 100 mg Aripiprazole (Aripiprazole 20 Mg Tablet) 20 mg PO DAILY [facility] Last Admin: 02/19/25 08:49 Dose: 20 mg Atorvastatin Calcium (Atorvastatin Calcium 80 Mg Tablet) 80 mg PO BEDTIME [facility] Last Admin: 02/18/25 19:27 Dose: 80 mg Benztropine Mesylate (Benztropine Mesylate 0.5 Mg Tablet) 0.5 mg PO BID [facility] Last Admin: 02/19/25 08:49 Dose: 0.5 mg Docusate Sodium (Docusate Sodium 100 Mg Capsule) 100 mg PO BID [facility] Last Admin: 02/19/25 08:49 Dose: 100 mg Hydroxyzine HCl (Hydroxyzine Hcl 25 Mg Tablet) 25 mg PO Q6H PRN PRN Reason: mild anxiety Last Admin: 02/18/25 15:32 Dose: 25 mg Lamotrigine (Lamotrigine 100 Mg Tablet) 200 mg PO BEDTIME [facility] Last Admin: 02/18/25 19:27 Dose: 200 mg Levalbuterol HCl (Levalbuterol Hcl 1.25 Mg/3 Ml Vial.Neb) 1.25 mg INHALE Q4H PRN PRN Reason: Wheezing Levothyroxine Sodium (Levothyroxine Sodium 125 Mcg Tablet) 125 mcg PO DAILY@0600 [facility] Last Admin: 02/19/25 05:09 Dose: 125 mcg Lisinopril (Lisinopril 10 Mg Tablet) 10 mg PO DAILY [facility]; Protocol Last Admin: 02/19/25 08:49 Dose: 10 mg Loratadine (Loratadine 10 Mg Tablet) 10 mg PO DAILY [facility] Last Admin: 02/19/25 08:49 Dose: 10 mg Lorazepam (Lorazepam 0.5 Mg Tablet) 0.5 mg PO BID PRN PRN Reason: moderate, anxiety Last Admin: 02/18/25 12:41 Dose: 0.5 mg Magnesium Hydroxide (Milk Of Magnesia 30 Ml Oral.Susp) 30 ml PO DAILY PRN PRN Reason: Constipation Metformin HCl (Metformin Hcl 500 Mg Tablet) 500 mg PO BIDWM [facility] Last Admin: 02/19/25 08:49 Dose: 500 mg Nicotine (Nicotine 21 Mg Patch.Td24) 21 mg TRANSDERMA DAILY PRN PRN Reason: smoking cessation Nicotine Polacrilex (Nicotine Polacrilex 2 Mg Gum) 4 mg BUCCAL Q2H PRN PRN Reason: Nicotine Cravings Olanzapine (Olanzapine Odt 10 Mg Tab.Rapdis) 20 mg TRANSLINGU BEDTIME [facility] Last Admin: 02/18/25 19:27 Dose: 20 mg Olanzapine (Olanzapine 2.5 Mg Tablet) 2.5 mg PO Q4H PRN PRN Reason: Psychosis Last Admin: 02/19/25 08:49 Dose: 2.5 mg Sodium Chloride (0.9 % Sodium Chloride Flush 10 Ml Syringe) 5 ml IVFLUSH QSHIFT [facility] Last Admin: 02/19/25 01:06 Dose: Not Given Vitamin D (Cholecalciferol (Vitamin D3) 10 Mcg Tablet) 20 mcg PO DAILY [facility] Last Admin: 02/19/25 08:49 Dose: 20 mcg Allergies Allergies Allergy/AdvReac Type Severity Reaction Status Date / Time Seasonal Allergies Allergy Nasal Verified 01/21/25 16:35 congestion Assessment & Plan Assessment & Plan (1) Schizophrenia, paranoid type: Status: Acute Code(s): F20.0 - Paranoid schizophrenia (2) Abnormal CT of liver: Status: Acute Code(s): R93.2 - Abnormal findings on diagnostic imaging of liver and biliary tract (3) COPD (chronic obstructive pulmonary disease): Qualifiers: COPD type: chronic bronchitis Chronic bronchitis type: simple Qualified Code(s): J41.0 - Simple chronic bronchitis Status: Acute Code(s): J44.9 - Chronic obstructive pulmonary disease, unspecified (4) Cognitive disorder: Status: Suspected Code(s): F09 - Unspecified mental disorder due to known physiological condition (5) Graves disease: Status: Acute Code(s): E05.00 - Thyrotoxicosis with diffuse goiter without thyrotoxic crisis or storm Plan The patient likely has air trapping for the COPD. If she gets anxious or if she is dyspneic, she will likely have worsening air trapping making her breathing worse. Currently, she is well. start short acting beta agonist as needed Tobacco cessation Outpt PFTs/CXR Maybe a candidate for the Lung cancer screening program as an outpt 02/09: Continue current plans and regimen. Added Ativan 0.5 mg b.i.d. p.r.n. 02/10 Patient said she wants to go home... Says I feel good and I want to go home.. Today patient got anxious when learning she needed to get an echocardiogram; in her anxiety, she started yelling out saying Cecilia go ahead and tell them all my medical issues... Patient's daughter present who said that this is patient's downstairs neighbor whom she is paranoid about 02/11 Increase olanzapine at 20 mg olanzapine p.r.n. also ordered Abilify increased back to 20 mg check EKG patient perhaps seems to be responding somewhat to olanzapine had been severely agitated floridly hallucinating and agitated. Check abdominal CT scan given question of liver mass liver cancer and abdominal pain 02/12 Patient seems somewhat improved less agitated on olanzapine abdominal CT scan ordered case reviewed with patient's primary care office patient was supposed to have follow-up regarding question of liver mass patient complains of abdominal pain agreeable to abdominal CT scan could be contributing factor to psychiatric presentation. Patient was able to give informed consent 02/13/2025 Continue olanzapine Abilify patient remains delusional but significantly calmer less agitated able to cooperate with medical workup including abdominal/pelvic ultrasound which shows liver lesions. Gastroenterology involved 02/14/2025 Patient seen case reviewed with gastroenterology also with patient's daughter current situation reviewed. Patient had abdominal CT scan when year ago with question of possible carcinoma patient had been complaining of abdominal pain on the inpatient psychiatry unit and then will CT scan ordered. See GI note. Patient on olanzapine and Abilify Lamictal significant less auditory hallucinations and preoccupation remains delusional preoccupied which seems chronic but less agitation 02/15; discussed MRI which she is amenable; patient intermittently expressing delusional thoughts 02/17 appears less paranoid, less psychotic, less accusatory to staff here on the unit. 02/19/25 Inc zyprexa made suicidal tgreats to family agaitated paranoid inc olanzapine 5 mg noon Gastroenterology following patient: 74-year-old female with history of anxiety and depression, paranoid schizophrenia disorder, unspecified asthma, hyperlipidemia, [id number] type 2 diabetes, and hypertension admitted to adult Psychiatry on 01/22/25 with after making suicidal and homicidal statements GI consulted for FU of abnormal CT scan of the liver Labs revealed normal LFTs ABD CT scan showed an 3.1 cms Indeterminate hepatic lesions in segments 1 and [address] scan was reviewed with Radiology and no prior images were available No obvious cirrhosis on CT scan Liver lesion can be benign (hepatic hemangioma, focal nodular hyperplasia, hepatocellular adenoma) or malignant (hepatocellular carcinoma, cholangiocarcinoma or metastatic disease) Liver lesion is likely benign since no significant increase in size over the past year (See outside CT report below from 01/23/24) RECOMMENDATIONS: 1. Check AFP and CA 19-9 - order placed for am labs 2. Schedule hepatic protocol MR for further characterization of the hepatic lesion (MRI could not be performed today due to prescence of spinal neurostimulator. Pt's daughter will be bringing the remote for the Neurostimulator on Monday and MRI will likely be done on Monday/Monday if the neurostimulator battery pack is MRI compatible) ADDENDUM: 01/23/[address] SCAN AT AN OUTSIDE FACILITY WHICH SHOWED: 1. Nodular contour of the liver, stage otic appearance. Patent portal veins, normal gallbladder, no bile duct dilation. 2. 4.1 x 4 x 2.9 cm liver lesion identified within segment 7 abutting the IVC. This demonstrates hypervascularity and is concerning for underlying liver lesion. Further characterization with multiphase CT or MRI if the neurostimulator battery pack is MRI compatible. 3. No evidence for an acute abdomen. 02/14/2025 Patient seen case reviewed with gastroenterology also with patient's daughter current situation reviewed. Patient had abdominal CT scan when year ago with question of possible carcinoma patient had been complaining of abdominal pain on the inpatient psychiatry unit and then will CT scan ordered. See GI note. Patient on olanzapine and Abilify Lamictal significant less auditory hallucinations and preoccupation remains delusional preoccupied which seems chronic but less agitation Reason for continued inpatient stay Substantial Risk for: harm to self, harm to others and rapid decompensation Time Spent With Patient Time: Total time managing care of this patient today ____ minutes.
[2025-02-19] MEDS: LORazepam 0.5 MG TABLET PO (13:36)
[2025-02-19 20:00] VITALS: BP 115/54; PULSE 72; RESP 18; TEMP 36.1; O2SAT 93
[2025-02-19] MEDS: Atorvastatin Calcium 80 MG TABLET PO (20:12)
[2025-02-19] MEDS: OLANZapine ODT 10 MG TAB.RAPDIS 20 MG TRANSLINGU (20:12)
[2025-02-19 20:13] VITALS: BP 115/54; PULSE 72; RESP 17; TEMP 37; O2SAT 92
[2025-02-19] MEDS: lamoTRIgine 100 MG TABLET 250 MG PO (20:13)
[2025-02-19] MEDS: Acetaminophen 325 MG TABLET 650 MG PO (20:42)
[2025-02-20] MEDS: Levothyroxine Sodium 125 MCG TABLET PO (05:20)
[2025-02-20 07:00] VITALS: BMI 21.2
[2025-02-20 08:00] VITALS: BP 139/60; PULSE 82; RESP 16; TEMP 36.1; O2SAT 99
[2025-02-20] MEDS: metFORMIN HCl 500 MG TABLET PO ×2 (08:20→16:41)
[2025-02-20] MEDS: Loratadine 10 MG TABLET PO (08:21)
[2025-02-20] MEDS: Cholecalciferol (Vitamin D3) 10 MCG TABLET 20 MCG PO (08:21)
[2025-02-20] MEDS: lisinopriL 10 MG TABLET PO (08:21)
[2025-02-20] MEDS: ARIPiprazole 20 MG TABLET PO (08:21)
[2025-02-20] MEDS: amantadine HCL 100 MG CAPSULE PO ×2 (08:21→20:08)
[2025-02-20] MEDS: Docusate Sodium 100 MG CAPSULE PO ×2 (08:21→20:08)
[2025-02-20] MEDS: Benztropine Mesylate 0.5 MG TABLET PO ×2 (08:21→20:07)
[2025-02-20] MEDS: OLANZapine 5 MG TABLET PO (12:36)
[2025-02-20 20:00] VITALS: BP 134/64; PULSE 77; RESP 16; TEMP 36.1; O2SAT 100
[2025-02-20] MEDS: Acetaminophen 325 MG TABLET 650 MG PO (20:07)
[2025-02-20] MEDS: OLANZapine ODT 10 MG TAB.RAPDIS 20 MG TRANSLINGU (20:08)
[2025-02-20] MEDS: Atorvastatin Calcium 80 MG TABLET PO (20:08)
[2025-02-20] MEDS: lamoTRIgine 100 MG TABLET 250 MG PO (20:08)
--- NOTE | 2025-02-20 21:28 | HO.PSYCHPN ---
Subjective Subjective Date of Service: 02/20/25 Reason For Visit: other specified schizophrenia spectrum Subjective Notes: Conditional Voluntary and 3 Day Interim History: Patient seen psychiatric follow-up. Patient's mood labile agitated no understanding regarding why she was hospitalized or need for treatment marked lack of insight Medication Compliance: Yes Mental Status Exam Mental Status Exam Narrative: Appearance: casual clothing, good hygiene, in NAD Behavior: irritable Psychomotor: no agitation at the time of meeting with this press writer but later more agitated. Speech: mostly clear,pressured s TP: linear racing TC: wanting to be discharged soon Mood: Anxious dysphoric Affect:labile s SI: Denies currently HI; none VH/AH: [facility] going to be sent diff places Delusions: multiple delusions re neighbors being sent to diff places Insight/judgment: impaired x 2. memory/cog: alert, oriented x3 except for situation. Diagnostics Vital Signs (24Hr): Vital Signs - 24 hr 02/20/25 08:00 Temperature 96.9 F Pulse Rate 82 Respiratory Rate 16 Blood Pressure 139/60 Pulse Oximetry 99 Oxygen Delivery Method Room Air BMI result Body Mass Index 19.9 Labs 02/12/25 07:47 02/18/25 08:52 Imaging Radiology Impressions: ITS Impressions Thyroid Ultrasound 01/22/25 09:21 IMPRESSION: ACR TI RADS 0. Normal thyroid. ACR TI-RADS RECOMMENDATION REFERENCE: Ultrasound-guided fine-needle aspiration, followup ultrasound, no further follow up. * TR1 (0 point) and TR2 (2 points): No FNA or follow up. * TR3 (3 points): FNA if more than or equal to 2.5 cm in maximum dimension, followup ultrasound in 1, 3 and 5 years if 1.5 to 2.4 cm in maximum dimension. * TR4 (4-6 points): FNA if more than or equal to 1.5 cm in maximum dimension, followup ultrasound in 1, 2, 3 and 5 years if 1 to 1.4 cm in maximum dimension. * TR5 (more than or equal to 7 points): FNA if more than or equal to 1 cm in maximum dimension, followup ultrasound every year for 5 years if 0.5 to 0.9 cm in maximum dimension. * TR3, TR4 or TR5 nodules that are below the size threshold for followup receive no follow up. Electronically signed by: Juan Rosenberg MD 01/22/2025 10:02 AM EDT Medications Medications Current Medications Acetaminophen (Acetaminophen 325 Mg Tablet) 650 mg PO Q6H PRN PRN Reason: Headache/Pain, Scale 1-10 Last Admin: 02/20/25 20:07 Dose: 650 mg Al Hydroxide/Mg Hydroxide (Magnesium Hydrox/Alum Hydrox 30 Ml Oral.Susp) 30 ml PO Q6H PRN PRN Reason: Heartburn/Nausea Last Admin: 02/10/25 20:27 Dose: 30 ml Amantadine HCl (Amantadine Hcl 100 Mg Capsule) 100 mg PO BID [facility] Last Admin: 02/20/25 20:08 Dose: 100 mg Aripiprazole (Aripiprazole 20 Mg Tablet) 20 mg PO DAILY [facility] Last Admin: 02/20/25 08:21 Dose: 20 mg Atorvastatin Calcium (Atorvastatin Calcium 80 Mg Tablet) 80 mg PO BEDTIME [facility] Last Admin: 02/20/25 20:08 Dose: 80 mg Benztropine Mesylate (Benztropine Mesylate 0.5 Mg Tablet) 0.5 mg PO BID [facility] Last Admin: 02/20/25 20:07 Dose: 0.5 mg Docusate Sodium (Docusate Sodium 100 Mg Capsule) 100 mg PO BID [facility] Last Admin: 02/20/25 20:08 Dose: 100 mg Lamotrigine (Lamotrigine 100 Mg Tablet) 250 mg PO BEDTIME [facility] Last Admin: 02/20/25 20:08 Dose: 250 mg Levalbuterol HCl (Levalbuterol Hcl 1.25 Mg/3 Ml Vial.Neb) 1.25 mg INHALE Q4H PRN PRN Reason: Wheezing Levothyroxine Sodium (Levothyroxine Sodium 125 Mcg Tablet) 125 mcg PO DAILY@0600 [facility] Last Admin: 02/20/25 05:20 Dose: 125 mcg Lisinopril (Lisinopril 10 Mg Tablet) 10 mg PO DAILY [facility]; Protocol Last Admin: 02/20/25 08:21 Dose: 10 mg Loratadine (Loratadine 10 Mg Tablet) 10 mg PO DAILY [facility] Last Admin: 02/20/25 08:21 Dose: 10 mg Lorazepam (Lorazepam 0.5 Mg Tablet) 0.5 mg PO BID PRN PRN Reason: moderate, anxiety Last Admin: 02/19/25 13:36 Dose: 0.5 mg Magnesium Hydroxide (Milk Of Magnesia 30 Ml Oral.Susp) 30 ml PO DAILY PRN PRN Reason: Constipation Metformin HCl (Metformin Hcl 500 Mg Tablet) 500 mg PO BIDWM [facility] Last Admin: 02/20/25 16:41 Dose: 500 mg Nicotine (Nicotine 21 Mg Patch.Td24) 21 mg TRANSDERMA DAILY PRN PRN Reason: smoking cessation Nicotine Polacrilex (Nicotine Polacrilex 2 Mg Gum) 4 mg BUCCAL Q2H PRN PRN Reason: Nicotine Cravings Olanzapine (Olanzapine Odt 10 Mg Tab.Rapdis) 20 mg TRANSLINGU BEDTIME [facility] Last Admin: 02/20/25 20:08 Dose: 20 mg Olanzapine (Olanzapine 2.5 Mg Tablet) 2.5 mg PO Q4H PRN PRN Reason: Psychosis Last Admin: 02/19/25 18:25 Dose: 2.5 mg Olanzapine (Olanzapine 5 Mg Tablet) 5 mg PO DAILY@1230 [facility] Last Admin: 02/20/25 12:36 Dose: 5 mg Vitamin D (Cholecalciferol (Vitamin D3) 10 Mcg Tablet) 20 mcg PO DAILY [facility] Last Admin: 02/20/25 08:21 Dose: 20 mcg Allergies Allergies Allergy/AdvReac Type Severity Reaction Status Date / Time Seasonal Allergies Allergy Nasal Verified 01/21/25 16:35 congestion Assessment & Plan Assessment & Plan (1) Schizophrenia, paranoid type: Status: Acute Code(s): F20.0 - Paranoid schizophrenia (2) Abnormal CT of liver: Status: Acute Code(s): R93.2 - Abnormal findings on diagnostic imaging of liver and biliary tract (3) COPD (chronic obstructive pulmonary disease): Qualifiers: COPD type: chronic bronchitis Chronic bronchitis type: simple Qualified Code(s): J41.0 - Simple chronic bronchitis Status: Acute Code(s): J44.9 - Chronic obstructive pulmonary disease, unspecified (4) Cognitive disorder: Status: Suspected Code(s): F09 - Unspecified mental disorder due to known physiological condition (5) Graves disease: Status: Acute Code(s): E05.00 - Thyrotoxicosis with diffuse goiter without thyrotoxic crisis or storm Plan The patient likely has air trapping for the COPD. If she gets anxious or if she is dyspneic, she will likely have worsening air trapping making her breathing worse. Currently, she is well. start short acting beta agonist as needed Tobacco cessation Outpt PFTs/CXR Maybe a candidate for the Lung cancer screening program as an outpt 02/09: Continue current plans and regimen. Added Ativan 0.5 mg b.i.d. p.r.n. 02/10 Patient said she wants to go home... Says I feel good and I want to go home.. Today patient got anxious when learning she needed to get an echocardiogram; in her anxiety, she started yelling out saying Cecilia go ahead and tell them all my medical issues... Patient's daughter present who said that this is patient's downstairs neighbor whom she is paranoid about 02/11 Increase olanzapine at 20 mg olanzapine p.r.n. also ordered Abilify increased back to 20 mg check EKG patient perhaps seems to be responding somewhat to olanzapine had been severely agitated floridly hallucinating and agitated. Check abdominal CT scan given question of liver mass liver cancer and abdominal pain 02/12 Patient seems somewhat improved less agitated on olanzapine abdominal CT scan ordered case reviewed with patient's primary care office patient was supposed to have follow-up regarding question of liver mass patient complains of abdominal pain agreeable to abdominal CT scan could be contributing factor to psychiatric presentation. Patient was able to give informed consent 02/13/2025 Continue olanzapine Abilify patient remains delusional but significantly calmer less agitated able to cooperate with medical workup including abdominal/pelvic ultrasound which shows liver lesions. Gastroenterology involved 02/14/2025 Patient seen case reviewed with gastroenterology also with patient's daughter current situation reviewed. Patient had abdominal CT scan when year ago with question of possible carcinoma patient had been complaining of abdominal pain on the inpatient psychiatry unit and then will CT scan ordered. See GI note. Patient on olanzapine and Abilify Lamictal significant less auditory hallucinations and preoccupation remains delusional preoccupied which seems chronic but less agitation 02/15; discussed MRI which she is amenable; patient intermittently expressing delusional thoughts 02/17 appears less paranoid, less psychotic, less accusatory to staff here on the unit. 02/19/25 Inc zyprexa made suicidal tgreats to family agaitated paranoid inc olanzapine 5 mg noon 02/20/2025 Olanzapine increased Lamictal increased will file for commitment Gastroenterology following patient: 74-year-old female with history of anxiety and depression, paranoid schizophrenia disorder, unspecified asthma, hyperlipidemia, [id number] type 2 diabetes, and hypertension admitted to adult Psychiatry on 01/22/25 with after making suicidal and homicidal statements GI consulted for FU of abnormal CT scan of the liver Labs revealed normal LFTs ABD CT scan showed an 3.1 cms Indeterminate hepatic lesions in segments 1 and [address] scan was reviewed with Radiology and no prior images were available No obvious cirrhosis on CT scan Liver lesion can be benign (hepatic hemangioma, focal nodular hyperplasia, hepatocellular adenoma) or malignant (hepatocellular carcinoma, cholangiocarcinoma or metastatic disease) Liver lesion is likely benign since no significant increase in size over the past year (See outside CT report below from 01/23/24) RECOMMENDATIONS: 1. Check AFP and CA 19-9 - order placed for am labs 2. Schedule hepatic protocol MR for further characterization of the hepatic lesion (MRI could not be performed today due to prescence of spinal neurostimulator. Pt's daughter will be bringing the remote for the Neurostimulator on Monday and MRI will likely be done on Monday/Monday if the neurostimulator battery pack is MRI compatible) ADDENDUM: 01/23/[address] SCAN AT AN OUTSIDE FACILITY WHICH SHOWED: 1. Nodular contour of the liver, stage otic appearance. Patent portal veins, normal gallbladder, no bile duct dilation. 2. 4.1 x 4 x 2.9 cm liver lesion identified within segment 7 abutting the IVC. This demonstrates hypervascularity and is concerning for underlying liver lesion. Further characterization with multiphase CT or MRI if the neurostimulator battery pack is MRI compatible. 3. No evidence for an acute abdomen. 02/14/2025 Patient seen case reviewed with gastroenterology also with patient's daughter current situation reviewed. Patient had abdominal CT scan when year ago with question of possible carcinoma patient had been complaining of abdominal pain on the inpatient psychiatry unit and then will CT scan ordered. See GI note. Patient on olanzapine and Abilify Lamictal significant less auditory hallucinations and preoccupation remains delusional preoccupied which seems chronic but less agitation Reason for continued inpatient stay Substantial Risk for: harm to self, harm to others, inability to function and rapid decompensation Time Spent With Patient Time: Total time managing care of this patient today ____ minutes.
[2025-02-21] MEDS: Levothyroxine Sodium 125 MCG TABLET PO (06:27)
[2025-02-21 08:00] VITALS: BP 126/58; PULSE 80; RESP 18; TEMP 36.1; O2SAT 98
[2025-02-21] MEDS: metFORMIN HCl 500 MG TABLET PO ×2 (08:12→15:49)
[2025-02-21] MEDS: Docusate Sodium 100 MG CAPSULE PO ×2 (08:12→19:43)
[2025-02-21] MEDS: lisinopriL 10 MG TABLET PO (08:12)
[2025-02-21] MEDS: amantadine HCL 100 MG CAPSULE PO ×2 (08:12→19:43)
[2025-02-21] MEDS: Cholecalciferol (Vitamin D3) 10 MCG TABLET 20 MCG PO (08:12)
[2025-02-21] MEDS: Loratadine 10 MG TABLET PO (08:13)
[2025-02-21] MEDS: Benztropine Mesylate 0.5 MG TABLET PO ×2 (08:13→19:43)
[2025-02-21] MEDS: ARIPiprazole 20 MG TABLET PO (09:39)
[2025-02-21] MEDS: OLANZapine 5 MG TABLET PO (11:34)
[2025-02-21] MEDS: OLANZapine 2.5 MG TABLET PO (15:49)
[2025-02-21] MEDS: Atorvastatin Calcium 80 MG TABLET PO (19:43)
[2025-02-21] MEDS: lamoTRIgine 100 MG TABLET 250 MG PO (19:43)
[2025-02-21] MEDS: OLANZapine ODT 10 MG TAB.RAPDIS 20 MG TRANSLINGU (19:43)
[2025-02-21 19:46] VITALS: BP 123/69; PULSE 78; RESP 16; TEMP 36.2; O2SAT 94
[2025-02-22] MEDS: OLANZapine 2.5 MG TABLET PO (03:10)
[2025-02-22] MEDS: LORazepam 0.5 MG TABLET PO ×2 (03:10→17:08)
[2025-02-22] MEDS: Levothyroxine Sodium 125 MCG TABLET PO (05:21)
[2025-02-22 08:00] VITALS: BP 104/66; PULSE 84; RESP 18; TEMP 36.3; O2SAT 97
[2025-02-22] MEDS: amantadine HCL 100 MG CAPSULE PO ×2 (08:19→19:26)
[2025-02-22] MEDS: Cholecalciferol (Vitamin D3) 10 MCG TABLET 20 MCG PO (08:19)
[2025-02-22] MEDS: lisinopriL 10 MG TABLET PO (08:19)
[2025-02-22] MEDS: metFORMIN HCl 500 MG TABLET PO ×2 (08:19→17:08)
[2025-02-22] MEDS: ARIPiprazole 20 MG TABLET PO (08:19)
[2025-02-22] MEDS: Loratadine 10 MG TABLET PO (08:19)
[2025-02-22] MEDS: Docusate Sodium 100 MG CAPSULE PO ×2 (08:19→19:27)
[2025-02-22] MEDS: Benztropine Mesylate 0.5 MG TABLET PO ×2 (08:19→19:26)
[2025-02-22] MEDS: OLANZapine 5 MG TABLET PO (13:45)
--- NOTE | 2025-02-22 15:03 | HO.PSYCHPN ---
Subjective Subjective Date of Service: 02/22/25 Reason For Visit: other specified schizophrenia spectrum Interim History: angry re not being able to leave. thought she as supposed to be discharged today. per staff, pt was filed on and will not be leaving. Mental Status Exam Mental Status Exam Narrative: Appearance: casual clothing, good hygiene, in NAD Behavior: irritable Psychomotor: agitated. Speech: mostly clear, pressured TP: linear racing TC: angry re not being discharged today Mood: angry Affect: labile SI: none expressed HI; none expressed VH/AH: pos [facility] of doctors going to be sent diff places Delusions: multiple delusions re neighbors being sent to diff places Insight/judgment: impaired x 2. memory/cog: alert, oriented x3 except for situation. Diagnostics Vital Signs (24Hr): Vital Signs - 24 hr 02/21/25 19:46 02/22/25 08:00 Temperature 97.2 F 97.3 F Pulse Rate 78 84 Respiratory Rate 16 18 Blood Pressure 123/69 104/66 Pulse Oximetry 94 97 Oxygen Delivery Method Room Air Room Air BMI result Body Mass Index 21.2 Labs 02/12/25 07:47 02/18/25 08:52 Imaging Radiology Impressions: ITS Impressions Thyroid Ultrasound 01/22/25 09:21 IMPRESSION: ACR TI RADS 0. Normal thyroid. ACR TI-RADS RECOMMENDATION REFERENCE: Ultrasound-guided fine-needle aspiration, followup ultrasound, no further follow up. * TR1 (0 point) and TR2 (2 points): No FNA or follow up. * TR3 (3 points): FNA if more than or equal to 2.5 cm in maximum dimension, followup ultrasound in 1, 3 and 5 years if 1.5 to 2.4 cm in maximum dimension. * TR4 (4-6 points): FNA if more than or equal to 1.5 cm in maximum dimension, followup ultrasound in 1, 2, 3 and 5 years if 1 to 1.4 cm in maximum dimension. * TR5 (more than or equal to 7 points): FNA if more than or equal to 1 cm in maximum dimension, followup ultrasound every year for 5 years if 0.5 to 0.9 cm in maximum dimension. * TR3, TR4 or TR5 nodules that are below the size threshold for followup receive no follow up. Electronically signed by: Juan Rosenberg MD 01/22/2025 10:02 AM EDT Medications Medications Current Medications Acetaminophen (Acetaminophen 325 Mg Tablet) 650 mg PO Q6H PRN PRN Reason: Headache/Pain, Scale 1-10 Last Admin: 02/20/25 20:07 Dose: 650 mg Al Hydroxide/Mg Hydroxide (Magnesium Hydrox/Alum Hydrox 30 Ml Oral.Susp) 30 ml PO Q6H PRN PRN Reason: Heartburn/Nausea Last Admin: 02/10/25 20:27 Dose: 30 ml Amantadine HCl (Amantadine Hcl 100 Mg Capsule) 100 mg PO BID [facility] Last Admin: 02/22/25 08:19 Dose: 100 mg Aripiprazole (Aripiprazole 20 Mg Tablet) 20 mg PO DAILY [facility] Last Admin: 02/22/25 08:19 Dose: 20 mg Atorvastatin Calcium (Atorvastatin Calcium 80 Mg Tablet) 80 mg PO BEDTIME [facility] Last Admin: 02/21/25 19:43 Dose: 80 mg Benztropine Mesylate (Benztropine Mesylate 0.5 Mg Tablet) 0.5 mg PO BID [facility] Last Admin: 02/22/25 08:19 Dose: 0.5 mg Docusate Sodium (Docusate Sodium 100 Mg Capsule) 100 mg PO BID [facility] Last Admin: 02/22/25 08:19 Dose: 100 mg Lamotrigine (Lamotrigine 100 Mg Tablet) 250 mg PO BEDTIME [facility] Last Admin: 02/21/25 19:43 Dose: 250 mg Levalbuterol HCl (Levalbuterol Hcl 1.25 Mg/3 Ml Vial.Neb) 1.25 mg INHALE Q4H PRN PRN Reason: Wheezing Levothyroxine Sodium (Levothyroxine Sodium 125 Mcg Tablet) 125 mcg PO DAILY@0600 [facility] Last Admin: 02/22/25 05:21 Dose: 125 mcg Lisinopril (Lisinopril 10 Mg Tablet) 10 mg PO DAILY [facility]; Protocol Last Admin: 02/22/25 08:19 Dose: 10 mg Loratadine (Loratadine 10 Mg Tablet) 10 mg PO DAILY [facility] Last Admin: 02/22/25 08:19 Dose: 10 mg Lorazepam (Lorazepam 0.5 Mg Tablet) 0.5 mg PO BID PRN PRN Reason: moderate, anxiety Last Admin: 02/22/25 03:10 Dose: 0.5 mg Magnesium Hydroxide (Milk Of Magnesia 30 Ml Oral.Susp) 30 ml PO DAILY PRN PRN Reason: Constipation Metformin HCl (Metformin Hcl 500 Mg Tablet) 500 mg PO BIDWM [facility] Last Admin: 02/22/25 08:19 Dose: 500 mg Nicotine (Nicotine 21 Mg Patch.Td24) 21 mg TRANSDERMA DAILY PRN PRN Reason: smoking cessation Nicotine Polacrilex (Nicotine Polacrilex 2 Mg Gum) 4 mg BUCCAL Q2H PRN PRN Reason: Nicotine Cravings Olanzapine (Olanzapine Odt 10 Mg Tab.Rapdis) 20 mg TRANSLINGU BEDTIME [facility] Last Admin: 02/21/25 19:43 Dose: 20 mg Olanzapine (Olanzapine 2.5 Mg Tablet) 2.5 mg PO Q4H PRN PRN Reason: Psychosis Last Admin: 02/22/25 03:10 Dose: 2.5 mg Olanzapine (Olanzapine 5 Mg Tablet) 5 mg PO DAILY@1230 [facility] Last Admin: 02/22/25 13:45 Dose: 5 mg Vitamin D (Cholecalciferol (Vitamin D3) 10 Mcg Tablet) 20 mcg PO DAILY [facility] Last Admin: 02/22/25 08:19 Dose: 20 mcg Allergies Allergies Allergy/AdvReac Type Severity Reaction Status Date / Time Seasonal Allergies Allergy Nasal Verified 01/21/25 16:35 congestion Assessment & Plan Assessment & Plan (1) Schizophrenia, paranoid type: Status: Acute Code(s): F20.0 - Paranoid schizophrenia (2) Abnormal CT of liver: Status: Acute Code(s): R93.2 - Abnormal findings on diagnostic imaging of liver and biliary tract (3) COPD (chronic obstructive pulmonary disease): Qualifiers: COPD type: chronic bronchitis Chronic bronchitis type: simple Qualified Code(s): J41.0 - Simple chronic bronchitis Status: Acute Code(s): J44.9 - Chronic obstructive pulmonary disease, unspecified (4) Cognitive disorder: Status: Suspected Code(s): F09 - Unspecified mental disorder due to known physiological condition (5) Graves disease: Status: Acute Code(s): E05.00 - Thyrotoxicosis with diffuse goiter without thyrotoxic crisis or storm Plan The patient likely has air trapping for the COPD. If she gets anxious or if she is dyspneic, she will likely have worsening air trapping making her breathing worse. Currently, she is well. start short acting beta agonist as needed Tobacco cessation Outpt PFTs/CXR Maybe a candidate for the Lung cancer screening program as an outpt 02/09: Continue current plans and regimen. Added Ativan 0.5 mg b.i.d. p.r.n. 02/10 Patient said she wants to go home... Says I feel good and I want to go home.. Today patient got anxious when learning she needed to get an echocardiogram; in her anxiety, she started yelling out saying Cecilia go ahead and tell them all my medical issues... Patient's daughter present who said that this is patient's downstairs neighbor whom she is paranoid about 02/11 Increase olanzapine at 20 mg olanzapine p.r.n. also ordered Abilify increased back to 20 mg check EKG patient perhaps seems to be responding somewhat to olanzapine had been severely agitated floridly hallucinating and agitated. Check abdominal CT scan given question of liver mass liver cancer and abdominal pain 02/12 Patient seems somewhat improved less agitated on olanzapine abdominal CT scan ordered case reviewed with patient's primary care office patient was supposed to have follow-up regarding question of liver mass patient complains of abdominal pain agreeable to abdominal CT scan could be contributing factor to psychiatric presentation. Patient was able to give informed consent 02/13/2025 Continue olanzapine Abilify patient remains delusional but significantly calmer less agitated able to cooperate with medical workup including abdominal/pelvic ultrasound which shows liver lesions. Gastroenterology involved 02/14/2025 Patient seen case reviewed with gastroenterology also with patient's daughter current situation reviewed. Patient had abdominal CT scan when year ago with question of possible carcinoma patient had been complaining of abdominal pain on the inpatient psychiatry unit and then will CT scan ordered. See GI note. Patient on olanzapine and Abilify Lamictal significant less auditory hallucinations and preoccupation remains delusional preoccupied which seems chronic but less agitation 02/15; discussed MRI which she is amenable; patient intermittently expressing delusional thoughts 02/17 appears less paranoid, less psychotic, less accusatory to staff here on the unit. 02/19/25 Inc zyprexa made suicidal tgreats to family agaitated paranoid inc olanzapine 5 mg noon 02/20/2025 Olanzapine increased Lamictal increased will file for commitment 5/3: irritable, angry @ [facility] for not being discharged today. Gastroenterology following patient: 74-year-old female with history of anxiety and depression, paranoid schizophrenia disorder, unspecified asthma, hyperlipidemia, [id number] type 2 diabetes, and hypertension admitted to adult Psychiatry on 01/22/25 with after making suicidal and homicidal statements GI consulted for FU of abnormal CT scan of the liver Labs revealed normal LFTs ABD CT scan showed an 3.1 cms Indeterminate hepatic lesions in segments 1 and [address] scan was reviewed with Radiology and no prior images were available No obvious cirrhosis on CT scan Liver lesion can be benign (hepatic hemangioma, focal nodular hyperplasia, hepatocellular adenoma) or malignant (hepatocellular carcinoma, cholangiocarcinoma or metastatic disease) Liver lesion is likely benign since no significant increase in size over the past year (See outside CT report below from 01/23/24) RECOMMENDATIONS: 1. Check AFP and CA 19-9 - order placed for am labs 2. Schedule hepatic protocol MR for further characterization of the hepatic lesion (MRI could not be performed today due to prescence of spinal neurostimulator. Pt's daughter will be bringing the remote for the Neurostimulator on Monday and MRI will likely be done on Monday/Monday if the neurostimulator battery pack is MRI compatible) ADDENDUM: 01/23/[address] SCAN AT AN OUTSIDE FACILITY WHICH SHOWED: 1. Nodular contour of the liver, stage otic appearance. Patent portal veins, normal gallbladder, no bile duct dilation. 2. 4.1 x 4 x 2.9 cm liver lesion identified within segment 7 abutting the IVC. This demonstrates hypervascularity and is concerning for underlying liver lesion. Further characterization with multiphase CT or MRI if the neurostimulator battery pack is MRI compatible. 3. No evidence for an acute abdomen. 02/14/2025 Patient seen case reviewed with gastroenterology also with patient's daughter current situation reviewed. Patient had abdominal CT scan when year ago with question of possible carcinoma patient had been complaining of abdominal pain on the inpatient psychiatry unit and then will CT scan ordered. See GI note. Patient on olanzapine and Abilify Lamictal significant less auditory hallucinations and preoccupation remains delusional preoccupied which seems chronic but less agitation Reason for continued inpatient stay Substantial Risk for: inability to function Time Spent With Patient Time: Total time managing care of this patient today ____ minutes.
[2025-02-22] MEDS: Atorvastatin Calcium 80 MG TABLET PO (19:26)
[2025-02-22] MEDS: OLANZapine ODT 10 MG TAB.RAPDIS 20 MG TRANSLINGU (19:26)
[2025-02-22] MEDS: lamoTRIgine 100 MG TABLET 250 MG PO (19:27)
[2025-02-22 20:00] VITALS: BP 110/57; PULSE 62; RESP 18; TEMP 36.2; O2SAT 97
[2025-02-23] MEDS: Levothyroxine Sodium 125 MCG TABLET PO (05:10)
[2025-02-23 08:00] VITALS: BP 135/60; PULSE 90; RESP 18; TEMP 36.8; O2SAT 96
[2025-02-23] MEDS: lisinopriL 10 MG TABLET PO (08:06)
[2025-02-23] MEDS: Loratadine 10 MG TABLET PO (08:06)
[2025-02-23] MEDS: Cholecalciferol (Vitamin D3) 10 MCG TABLET 20 MCG PO (08:06)
[2025-02-23] MEDS: amantadine HCL 100 MG CAPSULE PO ×2 (08:06→20:39)
[2025-02-23] MEDS: metFORMIN HCl 500 MG TABLET PO ×2 (08:06→15:59)
[2025-02-23] MEDS: ARIPiprazole 20 MG TABLET PO (08:06)
[2025-02-23] MEDS: Benztropine Mesylate 0.5 MG TABLET PO ×2 (08:06→20:40)
[2025-02-23] MEDS: Docusate Sodium 100 MG CAPSULE PO ×2 (08:06→20:37)
[2025-02-23] MEDS: OLANZapine 5 MG TABLET PO (11:31)
--- NOTE | 2025-02-23 14:41 | HO.PSYCHPN ---
Subjective Subjective Date of Service: 02/23/25 Reason For Visit: other specified schizophrenia spectrum Interim History: irritable, wants discharge. waiting to speak with [facility] tomorrow. per staff, no change. Mental Status Exam Mental Status Exam Narrative: Appearance: casual clothing, good hygiene, in NAD Behavior: irritable Psychomotor: agitated. Speech: mostly clear, pressured TP: linear racing TC: angry re not being discharged today Mood: angry Affect: labile SI: none expressed HI; none expressed VH/AH: [facility] doctors going to be sent diff places Delusions: multiple delusions re neighbors being sent to diff places Insight/judgment: impaired x 2. memory/cog: alert, oriented x3 except for situation. Diagnostics Vital Signs (24Hr): Vital Signs - 24 hr 02/22/25 20:00 02/23/25 08:00 Temperature 97.2 F 98.2 F Pulse Rate 62 90 Respiratory Rate 18 18 Blood Pressure 110/57 L 135/60 Pulse Oximetry 97 96 Oxygen Delivery Method Room Air Room Air BMI result Body Mass Index 21.2 Labs 02/12/25 07:47 02/18/25 08:52 Imaging Radiology Impressions: ITS Impressions Thyroid Ultrasound 01/22/25 09:21 IMPRESSION: ACR TI RADS 0. Normal thyroid. ACR TI-RADS RECOMMENDATION REFERENCE: Ultrasound-guided fine-needle aspiration, followup ultrasound, no further follow up. * TR1 (0 point) and TR2 (2 points): No FNA or follow up. * TR3 (3 points): FNA if more than or equal to 2.5 cm in maximum dimension, followup ultrasound in 1, 3 and 5 years if 1.5 to 2.4 cm in maximum dimension. * TR4 (4-6 points): FNA if more than or equal to 1.5 cm in maximum dimension, followup ultrasound in 1, 2, 3 and 5 years if 1 to 1.4 cm in maximum dimension. * TR5 (more than or equal to 7 points): FNA if more than or equal to 1 cm in maximum dimension, followup ultrasound every year for 5 years if 0.5 to 0.9 cm in maximum dimension. * TR3, TR4 or TR5 nodules that are below the size threshold for followup receive no follow up. Electronically signed by: Juan Rosenberg MD 01/22/2025 10:02 AM EDT RP Medications Medications Current Medications Acetaminophen (Acetaminophen 325 Mg Tablet) 650 mg PO Q6H PRN PRN Reason: Headache/Pain, Scale 1-10 Last Admin: 02/20/25 20:07 Dose: 650 mg Al Hydroxide/Mg Hydroxide (Magnesium Hydrox/Alum Hydrox 30 Ml Oral.Susp) 30 ml PO Q6H PRN PRN Reason: Heartburn/Nausea Last Admin: 02/10/25 20:27 Dose: 30 ml Amantadine HCl (Amantadine Hcl 100 Mg Capsule) 100 mg PO BID [facility] Last Admin: 02/23/25 08:06 Dose: 100 mg Aripiprazole (Aripiprazole 20 Mg Tablet) 20 mg PO DAILY [facility] Last Admin: 02/23/25 08:06 Dose: 20 mg Atorvastatin Calcium (Atorvastatin Calcium 80 Mg Tablet) 80 mg PO BEDTIME [facility] Last Admin: 02/22/25 19:26 Dose: 80 mg Benztropine Mesylate (Benztropine Mesylate 0.5 Mg Tablet) 0.5 mg PO BID [facility] Last Admin: 02/23/25 08:06 Dose: 0.5 mg Docusate Sodium (Docusate Sodium 100 Mg Capsule) 100 mg PO BID [facility] Last Admin: 02/23/25 08:06 Dose: 100 mg Lamotrigine (Lamotrigine 100 Mg Tablet) 250 mg PO BEDTIME [facility] Last Admin: 02/22/25 19:27 Dose: 250 mg Levalbuterol HCl (Levalbuterol Hcl 1.25 Mg/3 Ml Vial.Neb) 1.25 mg INHALE Q4H PRN PRN Reason: Wheezing Levothyroxine Sodium (Levothyroxine Sodium 125 Mcg Tablet) 125 mcg PO DAILY@0600 [facility] Last Admin: 02/23/25 05:10 Dose: 125 mcg Lisinopril (Lisinopril 10 Mg Tablet) 10 mg PO DAILY [facility]; Protocol Last Admin: 02/23/25 08:06 Dose: 10 mg Loratadine (Loratadine 10 Mg Tablet) 10 mg PO DAILY [facility] Last Admin: 02/23/25 08:06 Dose: 10 mg Lorazepam (Lorazepam 0.5 Mg Tablet) 0.5 mg PO BID PRN PRN Reason: moderate anxiety Magnesium Hydroxide (Milk Of Magnesia 30 Ml Oral.Susp) 30 ml PO DAILY PRN PRN Reason: Constipation Metformin HCl (Metformin Hcl 500 Mg Tablet) 500 mg PO BIDWM [facility] Last Admin: 02/23/25 08:06 Dose: 500 mg Nicotine (Nicotine 21 Mg Patch.Td24) 21 mg TRANSDERMA DAILY PRN PRN Reason: smoking cessation Nicotine Polacrilex (Nicotine Polacrilex 2 Mg Gum) 4 mg BUCCAL Q2H PRN PRN Reason: Nicotine Cravings Olanzapine (Olanzapine Odt 10 Mg Tab.Rapdis) 20 mg TRANSLINGU BEDTIME [facility] Last Admin: 02/22/25 19:26 Dose: 20 mg Olanzapine (Olanzapine 2.5 Mg Tablet) 2.5 mg PO Q4H PRN PRN Reason: Psychosis Last Admin: 02/22/25 03:10 Dose: 2.5 mg Olanzapine (Olanzapine 5 Mg Tablet) 5 mg PO DAILY@1230 [facility] Last Admin: 02/23/25 11:31 Dose: 5 mg Vitamin D (Cholecalciferol (Vitamin D3) 10 Mcg Tablet) 20 mcg PO DAILY [facility] Last Admin: 02/23/25 08:06 Dose: 20 mcg Allergies Allergies Allergy/AdvReac Type Severity Reaction Status Date / Time Seasonal Allergies Allergy Nasal Verified 01/21/25 16:35 congestion Assessment & Plan Assessment & Plan (1) Schizophrenia, paranoid type: Status: Acute Code(s): F20.0 - Paranoid schizophrenia (2) Abnormal CT of liver: Status: Acute Code(s): R93.2 - Abnormal findings on diagnostic imaging of liver and biliary tract (3) COPD (chronic obstructive pulmonary disease): Qualifiers: COPD type: chronic bronchitis Chronic bronchitis type: simple Qualified Code(s): J41.0 - Simple chronic bronchitis Status: Acute Code(s): J44.9 - Chronic obstructive pulmonary disease, unspecified (4) Cognitive disorder: Status: Suspected Code(s): F09 - Unspecified mental disorder due to known physiological condition (5) Graves disease: Status: Acute Code(s): E05.00 - Thyrotoxicosis with diffuse goiter without thyrotoxic crisis or storm Plan The patient likely has air trapping for the COPD. If she gets anxious or if she is dyspneic, she will likely have worsening air trapping making her breathing worse. Currently, she is well. start short acting beta agonist as needed Tobacco cessation Outpt PFTs/CXR Maybe a candidate for the Lung cancer screening program as an outpt 02/09: Continue current plans and regimen. Added Ativan 0.5 mg b.i.d. p.r.n. 02/10 Patient said she wants to go home... Says I feel good and I want to go home.. Today patient got anxious when learning she needed to get an echocardiogram; in her anxiety, she started yelling out saying Cecilia go ahead and tell them all my medical issues... Patient's daughter present who said that this is patient's downstairs neighbor whom she is paranoid about 02/11 Increase olanzapine at 20 mg olanzapine p.r.n. also ordered Abilify increased back to 20 mg check EKG patient perhaps seems to be responding somewhat to olanzapine had been severely agitated floridly hallucinating and agitated. Check abdominal CT scan given question of liver mass liver cancer and abdominal pain 02/12 Patient seems somewhat improved less agitated on olanzapine abdominal CT scan ordered case reviewed with patient's primary care office patient was supposed to have follow-up regarding question of liver mass patient complains of abdominal pain agreeable to abdominal CT scan could be contributing factor to psychiatric presentation. Patient was able to give informed consent 02/13/2025 Continue olanzapine Abilify patient remains delusional but significantly calmer less agitated able to cooperate with medical workup including abdominal/pelvic ultrasound which shows liver lesions. Gastroenterology involved 02/14/2025 Patient seen case reviewed with gastroenterology also with patient's daughter current situation reviewed. Patient had abdominal CT scan when year ago with question of possible carcinoma patient had been complaining of abdominal pain on the inpatient psychiatry unit and then will CT scan ordered. See GI note. Patient on olanzapine and Abilify Lamictal significant less auditory hallucinations and preoccupation remains delusional preoccupied which seems chronic but less agitation 02/15; discussed MRI which she is amenable; patient intermittently expressing delusional thoughts 02/17 appears less paranoid, less psychotic, less accusatory to staff here on the unit. 02/19/25 Inc zyprexa made suicidal tgreats to family agaitated paranoid inc olanzapine 5 mg noon 02/20/2025 Olanzapine increased Lamictal increased will file for commitment 02/22: irritable, angry @ [facility] for not being discharged today. 02/23: irritable, angry. wants discharge. continue current mgmt. Gastroenterology following patient: 74-year-old female with history of anxiety and depression, paranoid schizophrenia disorder, unspecified asthma, hyperlipidemia, [id number] type 2 diabetes, and hypertension admitted to adult Psychiatry on 01/22/25 with after making suicidal and homicidal statements GI consulted for FU of abnormal CT scan of the liver Labs revealed normal LFTs ABD CT scan showed an 3.1 cms Indeterminate hepatic lesions in segments 1 and [address] scan was reviewed with Radiology and no prior images were available No obvious cirrhosis on CT scan Liver lesion can be benign (hepatic hemangioma, focal nodular hyperplasia, hepatocellular adenoma) or malignant (hepatocellular carcinoma, cholangiocarcinoma or metastatic disease) Liver lesion is likely benign since no significant increase in size over the past year (See outside CT report below from 01/23/24) RECOMMENDATIONS: 1. Check AFP and CA 19-9 - order placed for am labs 2. Schedule hepatic protocol MR for further characterization of the hepatic lesion (MRI could not be performed today due to prescence of spinal neurostimulator. Pt's daughter will be bringing the remote for the Neurostimulator on Monday and MRI will likely be done on Monday/Monday if the neurostimulator battery pack is MRI compatible) ADDENDUM: 01/23/[address] SCAN AT AN OUTSIDE FACILITY WHICH SHOWED: 1. Nodular contour of the liver, stage otic appearance. Patent portal veins, normal gallbladder, no bile duct dilation. 2. 4.1 x 4 x 2.9 cm liver lesion identified within segment 7 abutting the IVC. This demonstrates hypervascularity and is concerning for underlying liver lesion. Further characterization with multiphase CT or MRI if the neurostimulator battery pack is MRI compatible. 3. No evidence for an acute abdomen. 02/14/2025 Patient seen case reviewed with gastroenterology also with patient's daughter current situation reviewed. Patient had abdominal CT scan when year ago with question of possible carcinoma patient had been complaining of abdominal pain on the inpatient psychiatry unit and then will CT scan ordered. See GI note. Patient on olanzapine and Abilify Lamictal significant less auditory hallucinations and preoccupation remains delusional preoccupied which seems chronic but less agitation Reason for continued inpatient stay Substantial Risk for: inability to function Time Spent With Patient Time: Total time managing care of this patient today ____ minutes.
[2025-02-23] MEDS: Acetaminophen 325 MG TABLET 650 MG PO (17:59)
[2025-02-23] MEDS: LORazepam 0.5 MG TABLET PO (18:00)
[2025-02-23 20:21] VITALS: BP 136/62; PULSE 78; TEMP 36.3; O2SAT 98
[2025-02-23] MEDS: lamoTRIgine 100 MG TABLET 250 MG PO (20:38)
[2025-02-23] MEDS: OLANZapine ODT 10 MG TAB.RAPDIS 20 MG TRANSLINGU (20:39)
[2025-02-23] MEDS: Atorvastatin Calcium 80 MG TABLET PO (20:40)
[2025-02-24] MEDS: Levothyroxine Sodium 125 MCG TABLET PO (06:11)
[2025-02-24 08:00] VITALS: BP 119/56; PULSE 69; RESP 18; TEMP 36.1; O2SAT 98
[2025-02-24] MEDS: metFORMIN HCl 500 MG TABLET PO ×2 (08:39→16:34)
[2025-02-24] MEDS: ARIPiprazole 20 MG TABLET PO (08:39)
[2025-02-24] MEDS: Cholecalciferol (Vitamin D3) 10 MCG TABLET 20 MCG PO (08:39)
[2025-02-24 08:40] VITALS: BP 119/56
[2025-02-24] MEDS: Benztropine Mesylate 0.5 MG TABLET PO ×2 (08:40→20:05)
[2025-02-24] MEDS: amantadine HCL 100 MG CAPSULE PO ×2 (08:40→20:05)
[2025-02-24] MEDS: Loratadine 10 MG TABLET PO (08:40)
[2025-02-24] MEDS: lisinopriL 10 MG TABLET PO (08:40)
[2025-02-24] MEDS: Docusate Sodium 100 MG CAPSULE PO ×2 (08:40→20:04)
[2025-02-24] MEDS: OLANZapine 5 MG TABLET PO (12:51)
--- NOTE | 2025-02-24 15:53 | P.PNPSI_ITS ---
Subjective Subjective Date of Service: 02/24/25 Reason For Visit: other specified schizophrenia spectrum Subjective Notes: Wells Warning and Section 7 Healthcare Proxy: Yes Interim History: Pt seen in psychiatric follow up case reviewed in treatment team. Patient remains delusional but appears to have been less agitated generally has attended some groups Medication Compliance: Yes Mental Status Exam Mental Status Exam Narrative: Appearance: casual clothing, good hygiene, in NAD Behavior: Calm Psychomotor: Unremarkable Speech: mostly clear, mildly pressured TP: Some degree of racing thoughts TC: Focused on discharge somewhat more reflective Mood: Anxious Affect: labile SI: none expressed HI; none expressed VH/AH: Less distracted Delusions: Decrease delusional preoccupation Insight/judgment: impaired x 2. memory/cog: alert, oriented x3 except for situation. Diagnostics Vital Signs (24Hr): Vital Signs - 24 hr 02/23/25 20:21 02/24/25 08:00 02/24/25 08:40 Temperature 97.3 F 97.0 F Pulse Rate 78 69 Respiratory Rate 18 Blood Pressure 136/62 119/56 L 119/56 L Pulse Oximetry 98 98 Oxygen Delivery Method Room Air Room Air BMI result Body Mass Index 21.2 Labs 02/12/25 07:47 02/25/25 07:17 Imaging Radiology Impressions: ITS Impressions Thyroid Ultrasound 01/22/25 09:21 IMPRESSION: ACR TI RADS 0. Normal thyroid. ACR TI-RADS RECOMMENDATION REFERENCE: Ultrasound-guided fine-needle aspiration, followup ultrasound, no further follow up. * TR1 (0 point) and TR2 (2 points): No FNA or follow up. * TR3 (3 points): FNA if more than or equal to 2.5 cm in maximum dimension, followup ultrasound in 1, 3 and 5 years if 1.5 to 2.4 cm in maximum dimension. * TR4 (4-6 points): FNA if more than or equal to 1.5 cm in maximum dimension, followup ultrasound in 1, 2, 3 and 5 years if 1 to 1.4 cm in maximum dimension. * TR5 (more than or equal to 7 points): FNA if more than or equal to 1 cm in maximum dimension, followup ultrasound every year for 5 years if 0.5 to 0.9 cm in maximum dimension. * TR3, TR4 or TR5 nodules that are below the size threshold for followup receive no follow up. Electronically signed by: Juan Rosenberg MD 01/22/2025 10:02 AM EDT Medications Medications Current Medications Acetaminophen (Acetaminophen 325 Mg Tablet) 650 mg PO Q6H PRN PRN Reason: Headache/Pain, Scale 1-10 Last Admin: 02/23/25 17:59 Dose: 650 mg Al Hydroxide/Mg Hydroxide (Magnesium Hydrox/Alum Hydrox 30 Ml Oral.Susp) 30 ml PO Q6H PRN PRN Reason: Heartburn/Nausea Last Admin: 02/10/25 20:27 Dose: 30 ml Amantadine HCl (Amantadine Hcl 100 Mg Capsule) 100 mg PO BID [facility] Last Admin: 02/24/25 08:40 Dose: 100 mg Aripiprazole (Aripiprazole 20 Mg Tablet) 20 mg PO DAILY [facility] Last Admin: 02/24/25 08:39 Dose: 20 mg Atorvastatin Calcium (Atorvastatin Calcium 80 Mg Tablet) 80 mg PO BEDTIME [facility] Last Admin: 02/23/25 20:40 Dose: 80 mg Benztropine Mesylate (Benztropine Mesylate 0.5 Mg Tablet) 0.5 mg PO BID [facility] Last Admin: 02/24/25 08:40 Dose: 0.5 mg Docusate Sodium (Docusate Sodium 100 Mg Capsule) 100 mg PO BID [facility] Last Admin: 02/24/25 08:40 Dose: 100 mg Lamotrigine (Lamotrigine 100 Mg Tablet) 250 mg PO BEDTIME [facility] Last Admin: 02/23/25 20:38 Dose: 250 mg Levalbuterol HCl (Levalbuterol Hcl 1.25 Mg/3 Ml Vial.Neb) 1.25 mg INHALE Q4H PRN PRN Reason: Wheezing Levothyroxine Sodium (Levothyroxine Sodium 125 Mcg Tablet) 125 mcg PO DAILY@0600 [facility] Last Admin: 02/24/25 06:11 Dose: 125 mcg Lisinopril (Lisinopril 10 Mg Tablet) 10 mg PO DAILY [facility]; Protocol Last Admin: 02/24/25 08:40 Dose: 10 mg Loratadine (Loratadine 10 Mg Tablet) 10 mg PO DAILY [facility] Last Admin: 02/24/25 08:40 Dose: 10 mg Lorazepam (Lorazepam 0.5 Mg Tablet) 0.5 mg PO BID PRN PRN Reason: moderate anxiety Last Admin: 02/23/25 18:00 Dose: 0.5 mg Magnesium Hydroxide (Milk Of Magnesia 30 Ml Oral.Susp) 30 ml PO DAILY PRN PRN Reason: Constipation Metformin HCl (Metformin Hcl 500 Mg Tablet) 500 mg PO BIDWM [facility] Last Admin: 02/24/25 08:39 Dose: 500 mg Nicotine (Nicotine 21 Mg Patch.Td24) 21 mg TRANSDERMA DAILY PRN PRN Reason: smoking cessation Nicotine Polacrilex (Nicotine Polacrilex 2 Mg Gum) 4 mg BUCCAL Q2H PRN PRN Reason: Nicotine Cravings Olanzapine (Olanzapine Odt 10 Mg Tab.Rapdis) 20 mg TRANSLINGU BEDTIME [facility] Last Admin: 02/23/25 20:39 Dose: 20 mg Olanzapine (Olanzapine 2.5 Mg Tablet) 2.5 mg PO Q4H PRN PRN Reason: Psychosis Last Admin: 02/22/25 03:10 Dose: 2.5 mg Olanzapine (Olanzapine 5 Mg Tablet) 5 mg PO DAILY@1230 [facility] Last Admin: 02/24/25 12:51 Dose: 5 mg Vitamin D (Cholecalciferol (Vitamin D3) 10 Mcg Tablet) 20 mcg PO DAILY [facility] Last Admin: 02/24/25 08:39 Dose: 20 mcg Allergies Allergies Allergy/AdvReac Type Severity Reaction Status Date / Time Seasonal Allergies Allergy Nasal Verified 01/21/25 16:35 congestion Assessment & Plan Assessment & Plan (1) Schizophrenia, paranoid type: Status: Acute Code(s): F20.0 - Paranoid schizophrenia (2) Abnormal CT of liver: Status: Acute Code(s): R93.2 - Abnormal findings on diagnostic imaging of liver and biliary tract (3) COPD (chronic obstructive pulmonary disease): Qualifiers: COPD type: chronic bronchitis Chronic bronchitis type: simple Q ualified Code(s): J41.0 - Simple chronic bronchitis Status: Acute Code(s): J44.9 - Chronic obstructive pulmonary disease, unspecified (4) Cognitive disorder: Status: Suspected Code(s): F09 - Unspecified mental disorder due to known physiological condition (5) Graves disease: Status: Acute Code(s): E05.00 - Thyrotoxicosis with diffuse goiter without thyrotoxic crisis or storm Plan The patient likely has air trapping for the COPD. If she gets anxious or if she is dyspneic, she will likely have worsening air trapping making her breathing worse. Currently, she is well. start short acting beta agonist as needed Tobacco cessation Outpt PFTs/CXR Maybe a candidate for the Lung cancer screening program as an outpt 02/09: Continue current plans and regimen. Added Ativan 0.5 mg b.i.d. p.r.n. 02/10 Patient said she wants to go home... Says I feel good and I want to go home.. Today patient got anxious when learning she needed to get an echocardiogram; in her anxiety, she started yelling out saying Cecilia go ahead and tell them all my medical issues... Patient's daughter present who said that this is patient's downstairs neighbor whom she is paranoid about 02/11 Increase olanzapine at 20 mg olanzapine p.r.n. also ordered Abilify increased back to 20 mg check EKG patient perhaps seems to be responding somewhat to olanzapine had been severely agitated floridly hallucinating and agitated. Check abdominal CT scan given question of liver mass liver cancer and abdominal pain 02/12 Patient seems somewhat improved less agitated on olanzapine abdominal CT scan ordered case reviewed with patient's primary care office patient was supposed to have follow-up regarding question of liver mass patient complains of abdominal pain agreeable to abdominal CT scan could be contributing factor to psychiatric presentation. Patient was able to give informed consent 02/13/2025 Continue olanzapine Abilify patient remains delusional but significantly calmer less agitated able to cooperate with medical workup including abdominal/pelvic ultrasound which shows liver lesions. Gastroenterology involved 02/14/2025 Patient seen case reviewed with gastroenterology also with patient's daughter current situation reviewed. Patient had abdominal CT scan when year ago with question of possible carcinoma patient had been complaining of abdominal pain on the inpatient psychiatry unit and then will CT scan ordered. See GI note. Patient on olanzapine and Abilify Lamictal significant less auditory hallucinations and preoccupation remains delusional preoccupied which seems chronic but less agitation 02/15; discussed MRI which she is amenable; patient intermittently expressing delusional thoughts 02/17 appears less paranoid, less psychotic, less accusatory to staff here on the unit. 02/19/25 Inc zyprexa made suicidal tgreats to family agaitated paranoid inc olanzapine 5 mg noon 02/20/2025 Olanzapine increased Lamictal increased will file for commitment 02/22: irritable, angry @ [facility] for not being discharged today. 02/23: irritable, angry. wants discharge. continue current mgmt. 02/24/2025 Patient seem less irritable agitated remains delusional preoccupied increase Lamictal to 300 mg check Lamictal level Gastroenterology following patient: 74-year-old female with history of anxiety and depression, paranoid schizophrenia disorder, unspecified asthma, hyperlipidemia, [id number] type 2 diabetes, and hypertension admitted to adult Psychiatry on 01/22/25 with after making suicidal and homicidal statements GI consulted for FU of abnormal CT scan of the liver Labs revealed normal LFTs ABD CT scan showed an 3.1 cms Indeterminate hepatic lesions in segments 1 and [address] scan was reviewed with Radiology and no prior images were available No obvious cirrhosis on CT scan Liver lesion can be benign (hepatic hemangioma, focal nodular hyperplasia, hepatocellular adenoma) or malignant (hepatocellular carcinoma, cholangiocarcinoma or metastatic disease) Liver lesion is likely benign since no significant increase in size over the past year (See outside CT report below from 01/23/24) RECOMMENDATIONS: 1. Check AFP and CA 19-9 - order placed for am labs 2. Schedule hepatic protocol MR for further characterization of the hepatic lesion (MRI could not be performed today due to prescence of spinal neurostimulator. Pt's daughter will be bringing the remote for the Neurostimulator on Monday and MRI will likely be done on Monday/Monday if the neurostimulator battery pack is MRI compatible) ADDENDUM: 01/23/[address] SCAN AT AN OUTSIDE FACILITY WHICH SHOWED: 1. Nodular contour of the liver, stage otic appearance. Patent portal veins, normal gallbladder, no bile duct dilation. 2. 4.1 x 4 x 2.9 cm liver lesion identified within segment 7 abutting the IVC. This demonstrates hypervascularity and is concerning for underlying liver lesion. Further characterization with multiphase CT or MRI if the neurostimulator battery pack is MRI compatible. 3. No evidence for an acute abdomen. 02/14/2025 Patient seen case reviewed with gastroenterology also with patient's daughter current situation reviewed. Patient had abdominal CT scan when year ago with question of possible carcinoma patient had been complaining of abdominal pain on the inpatient psychiatry unit and then will CT scan ordered. See GI note. Patient on olanzapine and Abilify Lamictal significant less auditory hallucinations and preoccupation remains delusional preoccupied which seems chronic but less agitation Reason for continued inpatient stay Substantial Risk for: inability to function and rapid decompensation Time Spent With Patient Time: Total time managing care of this patient today ____ minutes.
[2025-02-24 20:00] VITALS: BP 143/66; PULSE 66; RESP 16; TEMP 35.5; O2SAT 93
[2025-02-24] MEDS: OLANZapine ODT 10 MG TAB.RAPDIS 20 MG TRANSLINGU (20:04)
[2025-02-24] MEDS: Atorvastatin Calcium 80 MG TABLET PO (20:04)
[2025-02-24] MEDS: lamoTRIgine 100 MG TABLET 250 MG PO (20:05)
[2025-02-24] MEDS: OLANZapine 2.5 MG TABLET PO (23:53)
[2025-02-24] MEDS: LORazepam 0.5 MG TABLET PO (23:53)
[2025-02-25] MEDS: Levothyroxine Sodium 125 MCG TABLET PO (05:25)
[2025-02-25 07:48] LABS: Creatinine Clr Calc Pharmacy 60.9; Estimated Glomerular Filt Rate > 60
[2025-02-25 07:58] VITALS: BP 111/53; PULSE 69; RESP 18; TEMP 36.5; O2SAT 100
[2025-02-25] MEDS: lisinopriL 10 MG TABLET PO (08:03)
[2025-02-25] MEDS: ARIPiprazole 20 MG TABLET PO (08:05)
[2025-02-25] MEDS: Benztropine Mesylate 0.5 MG TABLET PO ×2 (08:05→20:13)
[2025-02-25] MEDS: metFORMIN HCl 500 MG TABLET PO ×2 (08:05→16:20)
[2025-02-25] MEDS: Cholecalciferol (Vitamin D3) 10 MCG TABLET 20 MCG PO (08:05)
[2025-02-25] MEDS: Docusate Sodium 100 MG CAPSULE PO ×2 (08:05→20:14)
[2025-02-25] MEDS: amantadine HCL 100 MG CAPSULE PO ×2 (08:05→20:13)
[2025-02-25] MEDS: Loratadine 10 MG TABLET PO (08:05)
[2025-02-25] MEDS: OLANZapine 5 MG TABLET PO (11:44)
[2025-02-25 19:55] VITALS: BP 128/58; PULSE 82; RESP 18; TEMP 36.3; O2SAT 100
[2025-02-25] MEDS: Atorvastatin Calcium 80 MG TABLET PO (20:13)
[2025-02-25] MEDS: OLANZapine ODT 10 MG TAB.RAPDIS 20 MG TRANSLINGU (20:13)
[2025-02-25] MEDS: lamoTRIgine 100 MG TABLET 250 MG PO (20:14)
--- NOTE | 2025-02-25 23:10 | P.PNPSI_ITS ---
Subjective Subjective Date of Service: 02/25/25 Reason For Visit: other specified schizophrenia spectrum Subjective Notes: Section 7 and Conditional Voluntary Interim History: Patient seen psychiatric follow-up. Patient has shown significant improvement less labile she does have a pending court hearing try and see if patient can be stabilized prior. Discussed with family Medication Compliance: Yes Mental Status Exam Mental Status Exam Narrative: Appearance: casual clothing, good hygiene, in NAD Behavior: Calm Psychomotor: Unremarkable Speech: mostly clear, mildly pressured TP: Some degree of racing thoughts TC: Focused on discharge somewhat more reflective Mood: Anxious Affect: labile SI: none expressed HI; none expressed VH/AH: Less distracted Delusions: Decrease delusional preoccupation Insight/judgment: impaired x 2. memory/cog: alert, oriented x3 except for situation. Diagnostics Vital Signs (24Hr): Vital Signs - 24 hr 02/25/25 07:58 02/25/25 19:55 Temperature 97.7 F 97.3 F Pulse Rate 69 82 Respiratory Rate 18 18 Blood Pressure 111/53 L 128/58 L Pulse Oximetry 100 100 Oxygen Delivery Method Room Air Room Air BMI result Body Mass Index 21.2 Labs 02/12/25 07:47 02/25/25 07:17 Labs: Laboratory Results - last 48 hr 02/25/25 07:17 Creatinine 0.68 Estim Creat Clear Calc 60.9 Estimated GFR > 60 Imaging Radiology Impressions: ITS Impressions Thyroid Ultrasound 01/22/25 09:21 IMPRESSION: ACR TI RADS 0. Normal thyroid. ACR TI-RADS RECOMMENDATION REFERENCE: Ultrasound-guided fine-needle aspiration, followup ultrasound, no further follow up. * TR1 (0 point) and TR2 (2 points): No FNA or follow up. * TR3 (3 points): FNA if more than or equal to 2.5 cm in maximum dimension, followup ultrasound in 1, 3 and 5 years if 1.5 to 2.4 cm in maximum dimension. * TR4 (4-6 points): FNA if more than or equal to 1.5 cm in maximum dimension, followup ultrasound in 1, 2, 3 and 5 years if 1 to 1.4 cm in maximum dimension. * TR5 (more than or equal to 7 points): FNA if more than or equal to 1 cm in maximum dimension, followup ultrasound every year for 5 years if 0.5 to 0.9 cm in maximum dimension. * TR3, TR4 or TR5 nodules that are below the size threshold for followup receive no follow up. Electronically signed by: Juan Rosenberg MD 01/22/2025 10:02 AM EDT Medications Medications Current Medications Acetaminophen (Acetaminophen 325 Mg Tablet) 650 mg PO Q6H PRN PRN Reason: Headache/Pain, Scale 1-10 Last Admin: 02/23/25 17:59 Dose: 650 mg Al Hydroxide/Mg Hydroxide (Magnesium Hydrox/Alum Hydrox 30 Ml Oral.Susp) 30 ml PO Q6H PRN PRN Reason: Heartburn/Nausea Last Admin: 02/10/25 20:27 Dose: 30 ml Amantadine HCl (Amantadine Hcl 100 Mg Capsule) 100 mg PO BID [facility] Last Admin: 02/25/25 20:13 Dose: 100 mg Aripiprazole (Aripiprazole 20 Mg Tablet) 20 mg PO DAILY [facility] Last Admin: 02/25/25 08:05 Dose: 20 mg Atorvastatin Calcium (Atorvastatin Calcium 80 Mg Tablet) 80 mg PO BEDTIME [facility] Last Admin: 02/25/25 20:13 Dose: 80 mg Benztropine Mesylate (Benztropine Mesylate 0.5 Mg Tablet) 0.5 mg PO BID [facility] Last Admin: 02/25/25 20:13 Dose: 0.5 mg Docusate Sodium (Docusate Sodium 100 Mg Capsule) 100 mg PO BID [facility] Last Admin: 02/25/25 20:14 Dose: 100 mg Lamotrigine (Lamotrigine 100 Mg Tablet) 250 mg PO BEDTIME [facility] Last Admin: 02/25/25 20:14 Dose: 250 mg Levalbuterol HCl (Levalbuterol Hcl 1.25 Mg/3 Ml Vial.Neb) 1.25 mg INHALE Q4H PRN PRN Reason: Wheezing Levothyroxine Sodium (Levothyroxine Sodium 125 Mcg Tablet) 125 mcg PO DAILY@0600 [facility] Last Admin: 02/25/25 05:25 Dose: 125 mcg Lisinopril (Lisinopril 10 Mg Tablet) 10 mg PO DAILY [facility]; Protocol Last Admin: 02/25/25 08:03 Dose: 10 mg Loratadine (Loratadine 10 Mg Tablet) 10 mg PO DAILY [facility] Last Admin: 02/25/25 08:05 Dose: 10 mg Lorazepam (Lorazepam 0.5 Mg Tablet) 0.5 mg PO BID PRN PRN Reason: moderate anxiety Last Admin: 02/24/25 23:53 Dose: 0.5 mg Magnesium Hydroxide (Milk Of Magnesia 30 Ml Oral.Susp) 30 ml PO DAILY PRN PRN Reason: Constipation Metformin HCl (Metformin Hcl 500 Mg Tablet) 500 mg PO BIDWM [facility] Last Admin: 02/25/25 16:20 Dose: 500 mg Nicotine (Nicotine 21 Mg Patch.Td24) 21 mg TRANSDERMA DAILY PRN PRN Reason: smoking cessation Nicotine Polacrilex (Nicotine Polacrilex 2 Mg Gum) 4 mg BUCCAL Q2H PRN PRN Reason: Nicotine Cravings Olanzapine (Olanzapine Odt 10 Mg Tab.Rapdis) 20 mg TRANSLINGU BEDTIME [facility] Last Admin: 02/25/25 20:13 Dose: 20 mg Olanzapine (Olanzapine 2.5 Mg Tablet) 2.5 mg PO Q4H PRN PRN Reason: Psychosis Last Admin: 02/24/25 23:53 Dose: 2.5 mg Olanzapine (Olanzapine 5 Mg Tablet) 5 mg PO DAILY@1230 [facility] Last Admin: 02/25/25 11:44 Dose: 5 mg Vitamin D (Cholecalciferol (Vitamin D3) 10 Mcg Tablet) 20 mcg PO DAILY [facility] Last Admin: 02/25/25 08:05 Dose: 20 mcg Allergies Allergies Allergy/AdvReac Type Severity Reaction Status Date / Time Seasonal Allergies Allergy Nasal Verified 01/21/25 16:35 congestion Assessment & Plan Assessment & Plan (1) Schizophrenia, paranoid type: Status: Acute Code(s): F20.0 - Paranoid schizophrenia (2) Abnormal CT of liver: Status: Acute Code(s): R93.2 - Abnormal findings on diagnostic imaging of liver and biliary tract (3) COPD (chronic obstructive pulmonary disease): Qualifiers: COPD type: chronic bronchitis Chronic bronchitis type: simple Q ualified Code(s): J41.0 - Simple chronic bronchitis Status: Acute Code(s): J44.9 - Chronic obstructive pulmonary disease, unspecified (4) Cognitive disorder: Status: Suspected Code(s): F09 - Unspecified mental disorder due to known physiological condition (5) Graves disease: Status: Acute Code(s): E05.00 - Thyrotoxicosis with diffuse goiter without thyrotoxic crisis or storm Plan The patient likely has air trapping for the COPD. If she gets anxious or if she is dyspneic, she will likely have worsening air trapping making her breathing worse. Currently, she is well. start short acting beta agonist as needed Tobacco cessation Outpt PFTs/CXR Maybe a candidate for the Lung cancer screening program as an outpt 02/09: Continue current plans and regimen. Added Ativan 0.5 mg b.i.d. p.r.n. 02/10 Patient said she wants to go home... Says I feel good and I want to go home.. Today patient got anxious when learning she needed to get an echocardiogram; in her anxiety, she started yelling out saying Cecilia go ahead and tell them all my medical issues... Patient's daughter present who said that this is patient's downstairs neighbor whom she is paranoid about 02/11 Increase olanzapine at 20 mg olanzapine p.r.n. also ordered Abilify increased back to 20 mg check EKG patient perhaps seems to be responding somewhat to olanzapine had been severely agitated floridly hallucinating and agitated. Check abdominal CT scan given question of liver mass liver cancer and abdominal pain 02/12 Patient seems somewhat improved less agitated on olanzapine abdominal CT scan ordered case reviewed with patient's primary care office patient was supposed to have follow-up regarding question of liver mass patient complains of abdominal pain agreeable to abdominal CT scan could be contributing factor to psychiatric presentation. Patient was able to give informed consent 02/13/2025 Continue olanzapine Abilify patient remains delusional but significantly calmer less agitated able to cooperate with medical workup including abdominal/pelvic ultrasound which shows liver lesions. Gastroenterology involved 02/14/2025 Patient seen case reviewed with gastroenterology also with patient's daughter current situation reviewed. Patient had abdominal CT scan when year ago with question of possible carcinoma patient had been complaining of abdominal pain on the inpatient psychiatry unit and then will CT scan ordered. See GI note. Patient on olanzapine and Abilify Lamictal significant less auditory hallucinations and preoccupation remains delusional preoccupied which seems chronic but less agitation 02/15; discussed MRI which she is amenable; patient intermittently expressing delusional thoughts 02/17 appears less paranoid, less psychotic, less accusatory to staff here on the unit. 02/19/25 Inc zyprexa made suicidal tgreats to family agaitated paranoid inc olanzapine 5 mg noon 02/20/2025 Olanzapine increased Lamictal increased will file for commitment 02/22: irritable, angry @ [facility] for not being discharged today. 02/23: irritable, angry. wants discharge. continue current mgmt. 02/24/2025 Continue olanzapine check Lamictal level discuss with family possibilities regarding discharge in supervision 02/24/2025 Patient seem less irritable agitated remains delusional preoccupied increase Lamictal to 300 mg check Lamictal level Gastroenterology following patient: 74-year-old female with history of anxiety and depression, paranoid schizophrenia disorder, unspecified asthma, hyperlipidemia, [id number] type 2 diabetes, and hypertension admitted to adult Psychiatry on 01/22/25 with after making suicidal and homicidal statements GI consulted for FU of abnormal CT scan of the liver Labs revealed normal LFTs ABD CT scan showed an 3.1 cms Indeterminate hepatic lesions in segments 1 and [address] scan was reviewed with Radiology and no prior images were available No obvious cirrhosis on CT scan Liver lesion can be benign (hepatic hemangioma, focal nodular hyperplasia, hepatocellular adenoma) or malignant (hepatocellular carcinoma, cholangiocarcinoma or metastatic disease) Liver lesion is likely benign since no significant increase in size over the past year (See outside CT report below from 01/23/24) RECOMMENDATIONS: 1. Check AFP and CA 19-9 - order placed for am labs 2. Schedule hepatic protocol MR for further characterization of the hepatic lesion (MRI could not be performed today due to prescence of spinal neurostimulator. Pt's daughter will be bringing the remote for the Neurostimulator on Monday and MRI will likely be done on Monday/Monday if the neurostimulator battery pack is MRI compatible) ADDENDUM: 01/23/[address] SCAN AT AN OUTSIDE FACILITY WHICH SHOWED: 1. Nodular contour of the liver, stage otic appearance. Patent portal veins, normal gallbladder, no bile duct dilation. 2. 4.1 x 4 x 2.9 cm liver lesion identified within segment 7 abutting the IVC. This demonstrates hypervascularity and is concerning for underlying liver lesion. Further characterization with multiphase CT or MRI if the neurostimulator battery pack is MRI compatible. 3. No evidence for an acute abdomen. 02/14/2025 Patient seen case reviewed with gastroenterology also with patient's daughter current situation reviewed. Patient had abdominal CT scan when year ago with question of possible carcinoma patient had been complaining of abdominal pain on the inpatient psychiatry unit and then will CT scan ordered. See GI note. Patient on olanzapine and Abilify Lamictal significant less auditory hallucinations and preoccupation remains delusional preoccupied which seems chronic but less agitation Reason for continued inpatient stay Substantial Risk for: harm to self and rapid decompensation Time Spent With Patient Time: Total time managing care of this patient today ____ minutes.
[2025-02-26] MEDS: Levothyroxine Sodium 125 MCG TABLET PO (05:57)
[2025-02-26 08:00] VITALS: BP 115/70; PULSE 75; RESP 18; TEMP 36.4; O2SAT 100
[2025-02-26 08:08] LABS: Alanine Aminotransferase 25 U/L (0-31); Albumin Level 4.1 g/dL (3.5-5.0); Alkaline Phosphatase 128 U/L (39-117); Anion Gap 13 (12-20); Aspartate Amino Transferase 24 U/L (5-31); Bilirubin Total 0.3 mg/dL (0.0-1.0); Blood Urea Nitrogen 15 mg/dL (9-16); Calcium 9.4 mg/dL (8.4-10.2); Carbon Dioxide 28 mmol/L (22-29); Chloride 100 mmol/L (96-108); Creatinine Clr Calc Pharmacy 56.7; Estimated Glomerular Filt Rate > 60; Glucose Fasting 124 mg/dL (60-99); Potassium 4.6 mmol/L (3.3-5.1); Sodium 136 mmol/L (135-145); Total Protein 7.4 g/dL (6.5-8.0)
[2025-02-26] MEDS: Cholecalciferol (Vitamin D3) 10 MCG TABLET 20 MCG PO (08:50)
[2025-02-26] MEDS: Benztropine Mesylate 0.5 MG TABLET PO ×2 (08:51→20:35)
[2025-02-26] MEDS: Loratadine 10 MG TABLET PO (08:51)
[2025-02-26] MEDS: lisinopriL 10 MG TABLET PO (08:51)
[2025-02-26] MEDS: Docusate Sodium 100 MG CAPSULE PO ×2 (08:51→20:35)
[2025-02-26] MEDS: ARIPiprazole 20 MG TABLET PO (08:51)
[2025-02-26] MEDS: amantadine HCL 100 MG CAPSULE PO ×2 (08:51→20:35)
[2025-02-26] MEDS: metFORMIN HCl 500 MG TABLET PO ×2 (09:05→16:22)
[2025-02-26] MEDS: OLANZapine 5 MG TABLET PO (12:09)
[2025-02-26 20:00] VITALS: BP 115/57; PULSE 75; RESP 16; TEMP 36.2; O2SAT 96
[2025-02-26] MEDS: lamoTRIgine 100 MG TABLET 250 MG PO (20:29)
[2025-02-26] MEDS: Atorvastatin Calcium 80 MG TABLET PO (20:34)
[2025-02-26] MEDS: OLANZapine ODT 10 MG TAB.RAPDIS 20 MG TRANSLINGU (20:34)
[2025-02-26] MEDS: Acetaminophen 325 MG TABLET 650 MG PO (20:41)
[2025-02-26] MEDS: Magnesium Hydrox/Alum Hydrox 30 ML ORAL.SUSP PO (22:05)
--- NOTE | 2025-02-26 23:51 | HO.PSYCHPN ---
Subjective Subjective Date of Service: 02/26/25 Reason For Visit: other specified schizophrenia spectrum Subjective Notes: Section 7 and Conditional Voluntary Interim History: Patient's mood is improving reportedly still her family repeated relieved regarding delusional content. Accepting medication less delusional preoccupations Mental Status Exam Mental Status Exam Narrative: Appearance: casual clothing, good hygiene, in NAD Behavior: Calm Psychomotor: Unremarkable Speech: mostly clear, mildly pressured TP: Some degree of racing thoughts TC: Focused on discharge somewhat more reflective Mood: Anxious Affect: labile SI: none expressed HI; none expressed VH/AH: Less distracted Delusions: Decrease delusional preoccupation Insight/judgment: impaired x 2. memory/cog: alert, oriented x3 except for situation. Diagnostics Vital Signs (24Hr): Vital Signs - 24 hr 02/26/25 08:00 02/26/25 20:00 Temperature 97.5 F 97.2 F Pulse Rate 75 75 Respiratory Rate 18 16 Blood Pressure 115/70 115/57 L Pulse Oximetry 100 96 Oxygen Delivery Method Room Air Room Air BMI result Body Mass Index 21.2 Labs 02/12/25 07:47 02/26/25 07:22 Labs: Laboratory Results - last 48 hr 02/25/25 02/26/25 07:17 07:22 Sodium 136 Potassium 4.6 Chloride 100 Carbon Dioxide 28 Anion Gap 13 BUN 15 Creatinine 0.68 0.73 Estim Creat Clear Calc 60.9 56.7 Estimated GFR > 60 > 60 Fasting Glucose 124 H Calcium 9.4 Total Bilirubin 0.3 AST 24 ALT 25 Alkaline Phosphatase 128 H Total Protein 7.4 Albumin 4.1 Imaging Radiology Impressions: ITS Impressions Thyroid Ultrasound 01/22/25 09:21 IMPRESSION: ACR TI RADS 0. Normal thyroid. ACR TI-RADS RECOMMENDATION REFERENCE: Ultrasound-guided fine-needle aspiration, followup ultrasound, no further follow up. * TR1 (0 point) and TR2 (2 points): No FNA or follow up. * TR3 (3 points): FNA if more than or equal to 2.5 cm in maximum dimension, followup ultrasound in 1, 3 and 5 years if 1.5 to 2.4 cm in maximum dimension. * TR4 (4-6 points): FNA if more than or equal to 1.5 cm in maximum dimension, followup ultrasound in 1, 2, 3 and 5 years if 1 to 1.4 cm in maximum dimension. * TR5 (more than or equal to 7 points): FNA if more than or equal to 1 cm in maximum dimension, followup ultrasound every year for 5 years if 0.5 to 0.9 cm in maximum dimension. * TR3, TR4 or TR5 nodules that are below the size threshold for followup receive no follow up. Electronically signed by: Juan Rosenberg MD 01/22/2025 10:02 AM EDT Medications Medications Current Medications Acetaminophen (Acetaminophen 325 Mg Tablet) 650 mg PO Q6H PRN PRN Reason: Headache/Pain, Scale 1-10 Last Admin: 02/26/25 20:41 Dose: 650 mg Al Hydroxide/Mg Hydroxide (Magnesium Hydrox/Alum Hydrox 30 Ml Oral.Susp) 30 ml PO Q6H PRN PRN Reason: Heartburn/Nausea Last Admin: 02/26/25 22:05 Dose: 30 ml Amantadine HCl (Amantadine Hcl 100 Mg Capsule) 100 mg PO BID [facility] Last Admin: 02/26/25 20:35 Dose: 100 mg Aripiprazole (Aripiprazole 20 Mg Tablet) 20 mg PO DAILY [facility] Last Admin: 02/26/25 08:51 Dose: 20 mg Atorvastatin Calcium (Atorvastatin Calcium 80 Mg Tablet) 80 mg PO BEDTIME [facility] Last Admin: 02/26/25 20:34 Dose: 80 mg Benztropine Mesylate (Benztropine Mesylate 0.5 Mg Tablet) 0.5 mg PO BID [facility] Last Admin: 02/26/25 20:35 Dose: 0.5 mg Docusate Sodium (Docusate Sodium 100 Mg Capsule) 100 mg PO BID [facility] Last Admin: 02/26/25 20:35 Dose: 100 mg Lamotrigine (Lamotrigine 100 Mg Tablet) 250 mg PO BEDTIME [facility] Last Admin: 02/26/25 20:29 Dose: 250 mg Levalbuterol HCl (Levalbuterol Hcl 1.25 Mg/3 Ml Vial.Neb) 1.25 mg INHALE Q4H PRN PRN Reason: Wheezing Levothyroxine Sodium (Levothyroxine Sodium 125 Mcg Tablet) 125 mcg PO DAILY@0600 [facility] Last Admin: 02/26/25 05:57 Dose: 125 mcg Lisinopril (Lisinopril 10 Mg Tablet) 10 mg PO DAILY [facility]; Protocol Last Admin: 02/26/25 08:51 Dose: 10 mg Loratadine (Loratadine 10 Mg Tablet) 10 mg PO DAILY [facility] Last Admin: 02/26/25 08:51 Dose: 10 mg Lorazepam (Lorazepam 0.5 Mg Tablet) 0.5 mg PO BID PRN PRN Reason: moderate anxiety Last Admin: 02/24/25 23:53 Dose: 0.5 mg Magnesium Hydroxide (Milk Of Magnesia 30 Ml Oral.Susp) 30 ml PO DAILY PRN PRN Reason: Constipation Metformin HCl (Metformin Hcl 500 Mg Tablet) 500 mg PO BIDWM [facility] Last Admin: 02/26/25 16:22 Dose: 500 mg Nicotine (Nicotine 21 Mg Patch.Td24) 21 mg TRANSDERMA DAILY PRN PRN Reason: smoking cessation Nicotine Polacrilex (Nicotine Polacrilex 2 Mg Gum) 4 mg BUCCAL Q2H PRN PRN Reason: Nicotine Cravings Olanzapine (Olanzapine Odt 10 Mg Tab.Rapdis) 20 mg TRANSLINGU BEDTIME [facility] Last Admin: 02/26/25 20:34 Dose: 20 mg Olanzapine (Olanzapine 2.5 Mg Tablet) 2.5 mg PO Q4H PRN PRN Reason: Psychosis Last Admin: 02/24/25 23:53 Dose: 2.5 mg Olanzapine (Olanzapine 5 Mg Tablet) 5 mg PO DAILY@1230 [facility] Last Admin: 02/26/25 12:09 Dose: 5 mg Vitamin D (Cholecalciferol (Vitamin D3) 10 Mcg Tablet) 20 mcg PO DAILY [facility] Last Admin: 02/26/25 08:50 Dose: 20 mcg Allergies Allergies Allergy/AdvReac Type Severity Reaction Status Date / Time Seasonal Allergies Allergy Nasal Verified 01/21/25 16:35 congestion Assessment & Plan Assessment & Plan (1) Schizophrenia, paranoid type: Status: Acute Code(s): F20.0 - Paranoid schizophrenia (2) Abnormal CT of liver: Status: Acute Code(s): R93.2 - Abnormal findings on diagnostic imaging of liver and biliary tract (3) COPD (chronic obstructive pulmonary disease): Qualifiers: COPD type: chronic bronchitis Chronic bronchitis type: simple Qualified Code(s): J41.0 - Simple chronic bronchitis Status: Acute Code(s): J44.9 - Chronic obstructive pulmonary disease, unspecified (4) Cognitive disorder: Status: Suspected Code(s): F09 - Unspecified mental disorder due to known physiological condition (5) Graves disease: Status: Acute Code(s): E05.00 - Thyrotoxicosis with diffuse goiter without thyrotoxic crisis or storm Plan The patient likely has air trapping for the COPD. If she gets anxious or if she is dyspneic, she will likely have worsening air trapping making her breathing worse. Currently, she is well. start short acting beta agonist as needed Tobacco cessation Outpt PFTs/CXR Maybe a candidate for the Lung cancer screening program as an outpt 02/09: Continue current plans and regimen. Added Ativan 0.5 mg b.i.d. p.r.n. 02/10 Patient said she wants to go home... Says I feel good and I want to go home.. Today patient got anxious when learning she needed to get an echocardiogram; in her anxiety, she started yelling out saying Cecilia go ahead and tell them all my medical issues... Patient's daughter present who said that this is patient's downstairs neighbor whom she is paranoid about 02/11 Increase olanzapine at 20 mg olanzapine p.r.n. also ordered Abilify increased back to 20 mg check EKG patient perhaps seems to be responding somewhat to olanzapine had been severely agitated floridly hallucinating and agitated. Check abdominal CT scan given question of liver mass liver cancer and abdominal pain 02/12 Patient seems somewhat improved less agitated on olanzapine abdominal CT scan ordered case reviewed with patient's primary care office patient was supposed to have follow-up regarding question of liver mass patient complains of abdominal pain agreeable to abdominal CT scan could be contributing factor to psychiatric presentation. Patient was able to give informed consent 02/13/2025 Continue olanzapine Abilify patient remains delusional but significantly calmer less agitated able to cooperate with medical workup including abdominal/pelvic ultrasound which shows liver lesions. Gastroenterology involved 02/14/2025 Patient seen case reviewed with gastroenterology also with patient's daughter current situation reviewed. Patient had abdominal CT scan when year ago with question of possible carcinoma patient had been complaining of abdominal pain on the inpatient psychiatry unit and then will CT scan ordered. See GI note. Patient on olanzapine and Abilify Lamictal significant less auditory hallucinations and preoccupation remains delusional preoccupied which seems chronic but less agitation 02/15; discussed MRI which she is amenable; patient intermittently expressing delusional thoughts 02/17 appears less paranoid, less psychotic, less accusatory to staff here on the unit. 02/19/25 Inc zyprexa made suicidal tgreats to family agaitated paranoid inc olanzapine 5 mg noon 02/20/2025 Olanzapine increased Lamictal increased will file for commitment 02/22: irritable, angry @ [facility] for not being discharged today. 02/23: irritable, angry. wants discharge. continue current mgmt. 02/24/2025 Continue olanzapine check Lamictal level discuss with family possibilities regarding discharge with supervision 02/24/2025 Patient seem less irritable agitated remains delusional preoccupied increase Lamictal to 300 mg check Lamictal level 02/26/2025 Patient seems better on Lamictal and olanzapine less in the way of delusional concerns less agitated about delusional concern court hearing pending discussed with patient consideration of signing back in as an option Gastroenterology following patient: 74-year-old female with history of anxiety and depression, paranoid schizophrenia disorder, unspecified asthma, hyperlipidemia, [id number] type 2 diabetes, and hypertension admitted to adult Psychiatry on 01/22/25 with after making suicidal and homicidal statements GI consulted for FU of abnormal CT scan of the liver Labs revealed normal LFTs ABD CT scan showed an 3.1 cms Indeterminate hepatic lesions in segments 1 and [address] scan was reviewed with Radiology and no prior images were available No obvious cirrhosis on CT scan Liver lesion can be benign (hepatic hemangioma, focal nodular hyperplasia, hepatocellular adenoma) or malignant (hepatocellular carcinoma, cholangiocarcinoma or metastatic disease) Liver lesion is likely benign since no significant increase in size over the past year (See outside CT report below from 01/23/24) RECOMMENDATIONS: 1. Check AFP and CA 19-9 - order placed for am labs 2. Schedule hepatic protocol MR for further characterization of the hepatic lesion (MRI could not be performed today due to prescence of spinal neurostimulator. Pt's daughter will be bringing the remote for the Neurostimulator on Monday and MRI will likely be done on Monday/Monday if the neurostimulator battery pack is MRI compatible) ADDENDUM: 01/23/[address] SCAN AT AN OUTSIDE FACILITY WHICH SHOWED: 1. Nodular contour of the liver, stage otic appearance. Patent portal veins, normal gallbladder, no bile duct dilation. 2. 4.1 x 4 x 2.9 cm liver lesion identified within segment 7 abutting the IVC. This demonstrates hypervascularity and is concerning for underlying liver lesion. Further characterization with multiphase CT or MRI if the neurostimulator battery pack is MRI compatible. 3. No evidence for an acute abdomen. 02/14/2025 Patient seen case reviewed with gastroenterology also with patient's daughter current situation reviewed. Patient had abdominal CT scan when year ago with question of possible carcinoma patient had been complaining of abdominal pain on the inpatient psychiatry unit and then will CT scan ordered. See GI note. Patient on olanzapine and Abilify Lamictal significant less auditory hallucinations and preoccupation remains delusional preoccupied which seems chronic but less agitation Reason for continued inpatient stay Substantial Risk for: harm to others, inability to function and rapid decompensation Time Spent With Patient Time: Total time managing care of this patient today ____ minutes.
[2025-02-27] MEDS: Levothyroxine Sodium 125 MCG TABLET PO (05:55)
[2025-02-27] MEDS: amantadine HCL 100 MG CAPSULE PO ×2 (07:55→20:04)
[2025-02-27] MEDS: metFORMIN HCl 500 MG TABLET PO ×2 (07:55→15:34)
[2025-02-27] MEDS: Cholecalciferol (Vitamin D3) 10 MCG TABLET 20 MCG PO (07:55)
[2025-02-27] MEDS: Benztropine Mesylate 0.5 MG TABLET PO ×2 (07:56→20:04)
[2025-02-27] MEDS: Docusate Sodium 100 MG CAPSULE PO ×2 (07:56→20:04)
[2025-02-27] MEDS: Loratadine 10 MG TABLET PO (07:56)
[2025-02-27] MEDS: ARIPiprazole 20 MG TABLET PO (07:56)
[2025-02-27] MEDS: lisinopriL 10 MG TABLET PO (07:56)
[2025-02-27 08:00] VITALS: BP 108/60; PULSE 70; RESP 18; TEMP 36.4; O2SAT 98
[2025-02-27 13:08] VITALS: BP 119/56; PULSE 76; RESP 18; O2SAT 99
[2025-02-27 13:20] VITALS: BP 119/56; PULSE 74; TEMP 36.3
[2025-02-27] MEDS: OLANZapine 5 MG TABLET PO (13:45)
--- NOTE | 2025-02-27 15:02 | PC.NURSE ---
Tatum was in the dining room and went to turn around quickly. She stated she lost her balance and accidentally fell catching herself and lowering herself to the floor. She denies any pain or discomfort. Stated she was absolutely fine . Ambulated well afterwards. VS WNL. Asked for a coffee and a snack. notified.
[2025-02-27] MEDS: LORazepam 0.5 MG TABLET PO (18:31)
[2025-02-27 20:00] VITALS: BP 137/60; PULSE 72; RESP 16; TEMP 36.3; O2SAT 99
[2025-02-27] MEDS: OLANZapine ODT 10 MG TAB.RAPDIS 20 MG TRANSLINGU (20:04)
[2025-02-27] MEDS: Atorvastatin Calcium 80 MG TABLET PO (20:04)
[2025-02-27] MEDS: lamoTRIgine 100 MG TABLET 250 MG PO (20:05)
--- NOTE | 2025-02-27 23:27 | P.PNPSI_ITS ---
Subjective Subjective Date of Service: 02/27/25 Reason For Visit: other specified schizophrenia spectrum Subjective Notes: Conditional Voluntary Interim History: Patient seen chart reviewed case reviewed in treatment planning. Patient seen chart reviewed case reviewed in treatment planning patient seem with her daughters. Patient able to give informed consent to signing conditional voluntary we discussed improvement in patient's mood instability patient limited insight into behavior but was able to hear her daughter's feedback Medication Compliance: Yes Mental Status Exam Mental Status Exam Narrative: Appearance: casual clothing, good hygiene, in NAD Behavior: Calm Psychomotor: Unremarkable Speech: mostly clear, mildly pressured TP: Some degree of racing thoughts TC: Focused on discharge somewhat more reflective Mood: Anxious Affect: labile SI: none expressed HI; none expressed VH/AH: Less distracted Delusions: Decrease delusional preoccupation Insight/judgment: impaired x 2. memory/cog: alert, oriented x3 except for situation. Diagnostics Vital Signs (24Hr): Vital Signs - 24 hr 02/27/25 08:00 02/27/25 13:08 02/27/25 13:20 Temperature 97.5 F 97.3 F Pulse Rate 70 76 74 Respiratory Rate 18 18 Blood Pressure 108/60 119/56 L 119/56 L Pulse Oximetry 98 99 Oxygen Delivery Method Room Air Room Air 02/27/25 20:00 Temperature 97.4 F Pulse Rate 72 Respiratory Rate 16 Blood Pressure 137/60 Pulse Oximetry 99 Oxygen Delivery Method Room Air BMI result Body Mass Index 21.2 Labs 02/12/25 07:47 02/26/25 07:22 Labs: Laboratory Results - last 48 hr 02/26/25 07:22 Sodium 136 Potassium 4.6 Chloride 100 Carbon Dioxide 28 Anion Gap 13 BUN 15 Creatinine 0.73 Estim Creat Clear Calc 56.7 Estimated GFR > 60 Fasting Glucose 124 H Calcium 9.4 Total Bilirubin 0.3 AST 24 ALT 25 Alkaline Phosphatase 128 H Total Protein 7.4 Albumin 4.1 Imaging Radiology Impressions: ITS Impressions Thyroid Ultrasound 01/22/25 09:21 IMPRESSION: ACR TI RADS 0. Normal thyroid. ACR TI-RADS RECOMMENDATION REFERENCE: Ultrasound-guided fine-needle aspiration, followup ultrasound, no further follow up. * TR1 (0 point) and TR2 (2 points): No FNA or follow up. * TR3 (3 points): FNA if more than or equal to 2.5 cm in maximum dimension, followup ultrasound in 1, 3 and 5 years if 1.5 to 2.4 cm in maximum dimension. * TR4 (4-6 points): FNA if more than or equal to 1.5 cm in maximum dimension, followup ultrasound in 1, 2, 3 and 5 years if 1 to 1.4 cm in maximum dimension. * TR5 (more than or equal to 7 points): FNA if more than or equal to 1 cm in maximum dimension, followup ultrasound every year for 5 years if 0.5 to 0.9 cm in maximum dimension. * TR3, TR4 or TR5 nodules that are below the size threshold for followup receive no follow up. Electronically signed by: Juan Rosenberg MD 01/22/2025 10:02 AM EDT Medications Medications Current Medications Acetaminophen (Acetaminophen 325 Mg Tablet) 650 mg PO Q6H PRN PRN Reason: Headache/Pain, Scale 1-10 Last Admin: 02/26/25 20:41 Dose: 650 mg Al Hydroxide/Mg Hydroxide (Magnesium Hydrox/Alum Hydrox 30 Ml Oral.Susp) 30 ml PO Q6H PRN PRN Reason: Heartburn/Nausea Last Admin: 02/26/25 22:05 Dose: 30 ml Amantadine HCl (Amantadine Hcl 100 Mg Capsule) 100 mg PO BID [facility] Last Admin: 02/27/25 20:04 Dose: 100 mg Aripiprazole (Aripiprazole 20 Mg Tablet) 20 mg PO DAILY [facility] Last Admin: 02/27/25 07:56 Dose: 20 mg Atorvastatin Calcium (Atorvastatin Calcium 80 Mg Tablet) 80 mg PO BEDTIME [facility] Last Admin: 02/27/25 20:04 Dose: 80 mg Benztropine Mesylate (Benztropine Mesylate 0.5 Mg Tablet) 0.5 mg PO BID [facility] Last Admin: 02/27/25 20:04 Dose: 0.5 mg Docusate Sodium (Docusate Sodium 100 Mg Capsule) 100 mg PO BID [facility] Last Admin: 02/27/25 20:04 Dose: 100 mg Lamotrigine (Lamotrigine 100 Mg Tablet) 250 mg PO BEDTIME [facility] Last Admin: 02/27/25 20:05 Dose: 250 mg Levalbuterol HCl (Levalbuterol Hcl 1.25 Mg/3 Ml Vial.Neb) 1.25 mg INHALE Q4H PRN PRN Reason: Wheezing Levothyroxine Sodium (Levothyroxine Sodium 125 Mcg Tablet) 125 mcg PO DAILY@0600 [facility] Last Admin: 02/27/25 05:55 Dose: 125 mcg Lisinopril (Lisinopril 10 Mg Tablet) 10 mg PO DAILY [facility]; Protocol Last Admin: 02/27/25 07:56 Dose: 10 mg Loratadine (Loratadine 10 Mg Tablet) 10 mg PO DAILY [facility] Last Admin: 02/27/25 07:56 Dose: 10 mg Lorazepam (Lorazepam 0.5 Mg Tablet) 0.5 mg PO BID PRN PRN Reason: moderate anxiety Last Admin: 02/27/25 18:31 Dose: 0.5 mg Magnesium Hydroxide (Milk Of Magnesia 30 Ml Oral.Susp) 30 ml PO DAILY PRN PRN Reason: Constipation Metformin HCl (Metformin Hcl 500 Mg Tablet) 500 mg PO BIDWM [facility] Last Admin: 02/27/25 15:34 Dose: 500 mg Nicotine (Nicotine 21 Mg Patch.Td24) 21 mg TRANSDERMA DAILY PRN PRN Reason: smoking cessation Nicotine Polacrilex (Nicotine Polacrilex 2 Mg Gum) 4 mg BUCCAL Q2H PRN PRN Reason: Nicotine Cravings Olanzapine (Olanzapine Odt 10 Mg Tab.Rapdis) 20 mg TRANSLINGU BEDTIME [facility] Last Admin: 02/27/25 20:04 Dose: 20 mg Olanzapine (Olanzapine 2.5 Mg Tablet) 2.5 mg PO Q4H PRN PRN Reason: Psychosis Last Admin: 02/24/25 23:53 Dose: 2.5 mg Olanzapine (Olanzapine 5 Mg Tablet) 5 mg PO DAILY@1230 [facility] Last Admin: 02/27/25 13:45 Dose: 5 mg Vitamin D (Cholecalciferol (Vitamin D3) 10 Mcg Tablet) 20 mcg PO DAILY [facility] Last Admin: 02/27/25 07:55 Dose: 20 mcg Allergies Allergies Allergy/AdvReac Type Severity Reaction Status Date / Time Seasonal Allergies Allergy Nasal Verified 01/21/25 16:35 congestion Assessment & Plan Assessment & Plan (1) Schizophrenia, paranoid type: Status: Acute Code(s): F20.0 - Paranoid schizophrenia (2) Abnormal CT of liver: Status: Acute Code(s): R93.2 - Abnormal findings on diagnostic imaging of liver and biliary tract (3) COPD (chronic obstructive pulmonary disease): Qualifiers: COPD type: chronic bronchitis Chronic bronchitis type: simple Q ualified Code(s): J41.0 - Simple chronic bronchitis Status: Acute Code(s): J44.9 - Chronic obstructive pulmonary disease, unspecified (4) Cognitive disorder: Status: Suspected Code(s): F09 - Unspecified mental disorder due to known physiological condition (5) Graves disease: Status: Acute Code(s): E05.00 - Thyrotoxicosis with diffuse goiter without thyrotoxic crisis or storm Plan The patient likely has air trapping for the COPD. If she gets anxious or if she is dyspneic, she will likely have worsening air trapping making her breathing worse. Currently, she is well. start short acting beta agonist as needed Tobacco cessation Outpt PFTs/CXR Maybe a candidate for the Lung cancer screening program as an outpt 02/09: Continue current plans and regimen. Added Ativan 0.5 mg b.i.d. p.r.n. 02/10 Patient said she wants to go home... Says I feel good and I want to go home.. Today patient got anxious when learning she needed to get an echocardiogram; in her anxiety, she started yelling out saying Cecilia go ahead and tell them all my medical issues... Patient's daughter present who said that this is patient's downstairs neighbor whom she is paranoid about 02/11 Increase olanzapine at 20 mg olanzapine p.r.n. also ordered Abilify increased back to 20 mg check EKG patient perhaps seems to be responding somewhat to olanzapine had been severely agitated floridly hallucinating and agitated. Check abdominal CT scan given question of liver mass liver cancer and abdominal pain 02/12 Patient seems somewhat improved less agitated on olanzapine abdominal CT scan ordered case reviewed with patient's primary care office patient was supposed to have follow-up regarding question of liver mass patient complains of abdominal pain agreeable to abdominal CT scan could be contributing factor to psychiatric presentation. Patient was able to give informed consent 02/13/2025 Continue olanzapine Abilify patient remains delusional but significantly calmer less agitated able to cooperate with medical workup including abdominal/pelvic ultrasound which shows liver lesions. Gastroenterology involved 02/14/2025 Patient seen case reviewed with gastroenterology also with patient's daughter current situation reviewed. Patient had abdominal CT scan when year ago with question of possible carcinoma patient had been complaining of abdominal pain on the inpatient psychiatry unit and then will CT scan ordered. See GI note. Patient on olanzapine and Abilify Lamictal significant less auditory hallucinations and preoccupation remains delusional preoccupied which seems chronic but less agitation 02/15; discussed MRI which she is amenable; patient intermittently expressing delusional thoughts 02/17 appears less paranoid, less psychotic, less accusatory to staff here on the unit. 02/19/25 Inc zyprexa made suicidal tgreats to family agaitated paranoid inc olanzapine 5 mg noon 02/20/2025 Olanzapine increased Lamictal increased will file for commitment 02/22: irritable, angry @ [facility] for not being discharged today. 02/23: irritable, angry. wants discharge. continue current mgmt. 02/24/2025 Continue olanzapine check Lamictal level discuss with family possibilities regarding discharge with supervision 02/24/2025 Patient seem less irritable agitated remains delusional preoccupied increase Lamictal to 300 mg check Lamictal level 02/26/2025 Patient seems better on Lamictal and olanzapine less in the way of delusional concerns less agitated about delusional concern court hearing pending discussed with patient consideration of signing back in as an option 02/27/2025 Patient agreeable to slightly longer length of stay to help stabilize mood and psychosis has signed conditional voluntary Gastroenterology following patient: 74-year-old female with history of anxiety and depression, paranoid schizophrenia disorder, unspecified asthma, hyperlipidemia, [id number] type 2 diabetes, and hypertension admitted to adult Psychiatry on 01/22/25 with after making suicidal and homicidal statements GI consulted for FU of abnormal CT scan of the liver Labs revealed normal LFTs ABD CT scan showed an 3.1 cms Indeterminate hepatic lesions in segments 1 and [address] scan was reviewed with Radiology and no prior images were available No obvious cirrhosis on CT scan Liver lesion can be benign (hepatic hemangioma, focal nodular hyperplasia, hepatocellular adenoma) or malignant (hepatocellular carcinoma, cholangiocarcinoma or metastatic disease) Liver lesion is likely benign since no significant increase in size over the past year (See outside CT report below from 01/23/24) RECOMMENDATIONS: 1. Check AFP and CA 19-9 - order placed for am labs 2. Schedule hepatic protocol MR for further characterization of the hepatic lesion (MRI could not be performed today due to prescence of spinal neurostimulator. Pt's daughter will be bringing the remote for the Neurostimulator on Monday and MRI will likely be done on Monday/Monday if the neurostimulator battery pack is MRI compatible) ADDENDUM: 01/23/[address] SCAN AT AN OUTSIDE FACILITY WHICH SHOWED: 1. Nodular contour of the liver, stage otic appearance. Patent portal veins, normal gallbladder, no bile duct dilation. 2. 4.1 x 4 x 2.9 cm liver lesion identified within segment 7 abutting the IVC. This demonstrates hypervascularity and is concerning for underlying liver lesion. Further characterization with multiphase CT or MRI if the neurostimulator battery pack is MRI compatible. 3. No evidence for an acute abdomen. 02/14/2025 Patient seen case reviewed with gastroenterology also with patient's daughter current situation reviewed. Patient had abdominal CT scan when year ago with question of possible carcinoma patient had been complaining of abdominal pain on the inpatient psychiatry unit and then will CT scan ordered. See GI note. Patient on olanzapine and Abilify Lamictal significant less auditory hallucinations and preoccupation remains delusional preoccupied which seems chronic but less agitation Reason for continued inpatient stay Substantial Risk for: inability to function and rapid decompensation Time Spent With Patient Time: Total time managing care of this patient today ____ minutes.
[2025-02-28] MEDS: Levothyroxine Sodium 125 MCG TABLET PO (05:21)
[2025-02-28 08:00] VITALS: BP 125/66; PULSE 73; RESP 18; TEMP 36.7; O2SAT 99
[2025-02-28] MEDS: Loratadine 10 MG TABLET PO (08:25)
[2025-02-28] MEDS: Benztropine Mesylate 0.5 MG TABLET PO ×2 (08:26→20:12)
[2025-02-28] MEDS: ARIPiprazole 20 MG TABLET PO (08:26)
[2025-02-28] MEDS: Cholecalciferol (Vitamin D3) 10 MCG TABLET 20 MCG PO (08:26)
[2025-02-28] MEDS: amantadine HCL 100 MG CAPSULE PO ×2 (08:26→20:12)
[2025-02-28] MEDS: metFORMIN HCl 500 MG TABLET PO ×2 (08:26→15:46)
[2025-02-28] MEDS: Docusate Sodium 100 MG CAPSULE PO ×2 (08:26→20:12)
[2025-02-28] MEDS: lisinopriL 10 MG TABLET PO (08:26)
[2025-02-28 09:10] VITALS: BMI 21.7
[2025-02-28] MEDS: OLANZapine 5 MG TABLET PO (13:45)
[2025-02-28 20:00] VITALS: BP 119/69; PULSE 73; RESP 16; TEMP 36.6; O2SAT 100
[2025-02-28] MEDS: OLANZapine ODT 10 MG TAB.RAPDIS 20 MG TRANSLINGU (20:12)
[2025-02-28] MEDS: Atorvastatin Calcium 80 MG TABLET PO (20:12)
[2025-02-28] MEDS: lamoTRIgine 100 MG TABLET 300 MG PO (20:12)
--- NOTE | 2025-02-28 23:45 | P.PNPSI_ITS ---
Subjective Subjective Date of Service: 02/28/25 Reason For Visit: other specified schizophrenia spectrum Subjective Notes: Conditional Voluntary Interim History: Patient's case reviewed in treatment planning sure reviewed patient seen. Less labile less delusional agitated Medication Compliance: Yes Mental Status Exam Mental Status Exam Narrative: Appearance: casual clothing, good hygiene, in NAD Behavior: Calm Psychomotor: Unremarkable Speech: mostly clear, mildly pressured TP: Some degree of racing thoughts TC: Focused on treatment issues able to discuss how to manage thoughts regarding downstairs neighbor Mood: Anxious Affect: labile SI: none expressed HI; none expressed VH/AH: Less distracted Delusions: Decrease delusional preoccupation Insight/judgment: impaired x 2. memory/cog: alert, oriented x3 except for situation. Diagnostics Vital Signs (24Hr): Vital Signs - 24 hr 02/28/25 08:00 02/28/25 20:00 Temperature 98.1 F 97.9 F Pulse Rate 73 73 Respiratory Rate 18 16 Blood Pressure 125/66 119/69 Pulse Oximetry 99 100 Oxygen Delivery Method Room Air Room Air BMI result Body Mass Index 21.7 Labs 02/12/25 07:47 02/26/25 07:22 Imaging Radiology Impressions: ITS Impressions Thyroid Ultrasound 01/22/25 09:21 IMPRESSION: ACR TI RADS 0. Normal thyroid. ACR TI-RADS RECOMMENDATION REFERENCE: Ultrasound-guided fine-needle aspiration, followup ultrasound, no further follow up. * TR1 (0 point) and TR2 (2 points): No FNA or follow up. * TR3 (3 points): FNA if more than or equal to 2.5 cm in maximum dimension, followup ultrasound in 1, 3 and 5 years if 1.5 to 2.4 cm in maximum dimension. * TR4 (4-6 points): FNA if more than or equal to 1.5 cm in maximum dimension, followup ultrasound in 1, 2, 3 and 5 years if 1 to 1.4 cm in maximum dimension. * TR5 (more than or equal to 7 points): FNA if more than or equal to 1 cm in maximum dimension, followup ultrasound every year for 5 years if 0.5 to 0.9 cm in maximum dimension. * TR3, TR4 or TR5 nodules that are below the size threshold for followup receive no follow up. Electronically signed by: Juan Rosenberg MD 01/22/2025 10:02 AM EDT Medications Medications Current Medications Acetaminophen (Acetaminophen 325 Mg Tablet) 650 mg PO Q6H PRN PRN Reason: Headache/Pain, Scale 1-10 Last Admin: 02/26/25 20:41 Dose: 650 mg Al Hydroxide/Mg Hydroxide (Magnesium Hydrox/Alum Hydrox 30 Ml Oral.Susp) 30 ml PO Q6H PRN PRN Reason: Heartburn/Nausea Last Admin: 02/26/25 22:05 Dose: 30 ml Amantadine HCl (Amantadine Hcl 100 Mg Capsule) 100 mg PO BID [facility] Last Admin: 02/28/25 20:12 Dose: 100 mg Aripiprazole (Aripiprazole 20 Mg Tablet) 20 mg PO DAILY [facility] Last Admin: 02/28/25 08:26 Dose: 20 mg Atorvastatin Calcium (Atorvastatin Calcium 80 Mg Tablet) 80 mg PO BEDTIME [facility] Last Admin: 02/28/25 20:12 Dose: 80 mg Benztropine Mesylate (Benztropine Mesylate 0.5 Mg Tablet) 0.5 mg PO BID [facility] Last Admin: 02/28/25 20:12 Dose: 0.5 mg Docusate Sodium (Docusate Sodium 100 Mg Capsule) 100 mg PO BID [facility] Last Admin: 02/28/25 20:12 Dose: 100 mg Lamotrigine (Lamotrigine 100 Mg Tablet) 300 mg PO BEDTIME [facility] Last Admin: 02/28/25 20:12 Dose: 300 mg Levalbuterol HCl (Levalbuterol Hcl 1.25 Mg/3 Ml Vial.Neb) 1.25 mg INHALE Q4H PRN PRN Reason: Wheezing Levothyroxine Sodium (Levothyroxine Sodium 125 Mcg Tablet) 125 mcg PO DAILY@0600 [facility] Last Admin: 02/28/25 05:21 Dose: 125 mcg Lisinopril (Lisinopril 10 Mg Tablet) 10 mg PO DAILY [facility]; Protocol Last Admin: 02/28/25 08:26 Dose: 10 mg Loratadine (Loratadine 10 Mg Tablet) 10 mg PO DAILY [facility] Last Admin: 02/28/25 08:25 Dose: 10 mg Lorazepam (Lorazepam 0.5 Mg Tablet) 0.5 mg PO BID PRN PRN Reason: moderate anxiety Last Admin: 02/27/25 18:31 Dose: 0.5 mg Magnesium Hydroxide (Milk Of Magnesia 30 Ml Oral.Susp) 30 ml PO DAILY PRN PRN Reason: Constipation Metformin HCl (Metformin Hcl 500 Mg Tablet) 500 mg PO BIDWM [facility] Last Admin: 02/28/25 15:46 Dose: 500 mg Nicotine (Nicotine 21 Mg Patch.Td24) 21 mg TRANSDERMA DAILY PRN PRN Reason: smoking cessation Nicotine Polacrilex (Nicotine Polacrilex 2 Mg Gum) 4 mg BUCCAL Q2H PRN PRN Reason: Nicotine Cravings Olanzapine (Olanzapine Odt 10 Mg Tab.Rapdis) 20 mg TRANSLINGU BEDTIME [facility] Last Admin: 02/28/25 20:12 Dose: 20 mg Olanzapine (Olanzapine 2.5 Mg Tablet) 2.5 mg PO Q4H PRN PRN Reason: Psychosis Last Admin: 02/24/25 23:53 Dose: 2.5 mg Olanzapine (Olanzapine 5 Mg Tablet) 5 mg PO DAILY@1230 [facility] Last Admin: 02/28/25 13:45 Dose: 5 mg Vitamin D (Cholecalciferol (Vitamin D3) 10 Mcg Tablet) 20 mcg PO DAILY [facility] Last Admin: 02/28/25 08:26 Dose: 20 mcg Allergies Allergies Allergy/AdvReac Type Severity Reaction Status Date / Time Seasonal Allergies Allergy Nasal Verified 01/21/25 16:35 congestion Assessment & Plan Assessment & Plan (1) Schizophrenia, paranoid type: Status: Acute Code(s): F20.0 - Paranoid schizophrenia (2) Abnormal CT of liver: Status: Acute Code(s): R93.2 - Abnormal findings on diagnostic imaging of liver and biliary tract (3) COPD (chronic obstructive pulmonary disease): Qualifiers: COPD type: chronic bronchitis Chronic bronchitis type: simple Q ualified Code(s): J41.0 - Simple chronic bronchitis Status: Acute Code(s): J44.9 - Chronic obstructive pulmonary disease, unspecified (4) Cognitive disorder: Status: Suspected Code(s): F09 - Unspecified mental disorder due to known physiological condition (5) Graves disease: Status: Acute Code(s): E05.00 - Thyrotoxicosis with diffuse goiter without thyrotoxic crisis or storm Plan The patient likely has air trapping for the COPD. If she gets anxious or if she is dyspneic, she will likely have worsening air trapping making her breathing worse. Currently, she is well. start short acting beta agonist as needed Tobacco cessation Outpt PFTs/CXR Maybe a candidate for the Lung cancer screening program as an outpt 02/09: Continue current plans and regimen. Added Ativan 0.5 mg b.i.d. p.r.n. 02/10 Patient said she wants to go home... Says I feel good and I want to go home.. Today patient got anxious when learning she needed to get an echocardiogram; in her anxiety, she started yelling out saying Cecilia go ahead and tell them all my medical issues... Patient's daughter present who said that this is patient's downstairs neighbor whom she is paranoid about 02/11 Increase olanzapine at 20 mg olanzapine p.r.n. also ordered Abilify increased back to 20 mg check EKG patient perhaps seems to be responding somewhat to olanzapine had been severely agitated floridly hallucinating and agitated. Check abdominal CT scan given question of liver mass liver cancer and abdominal pain 02/12 Patient seems somewhat improved less agitated on olanzapine abdominal CT scan ordered case reviewed with patient's primary care office patient was supposed to have follow-up regarding question of liver mass patient complains of abdominal pain agreeable to abdominal CT scan could be contributing factor to psychiatric presentation. Patient was able to give informed consent 02/13/2025 Continue olanzapine Abilify patient remains delusional but significantly calmer less agitated able to cooperate with medical workup including abdominal/pelvic ultrasound which shows liver lesions. Gastroenterology involved 02/14/2025 Patient seen case reviewed with gastroenterology also with patient's daughter current situation reviewed. Patient had abdominal CT scan when year ago with question of possible carcinoma patient had been complaining of abdominal pain on the inpatient psychiatry unit and then will CT scan ordered. See GI note. Patient on olanzapine and Abilify Lamictal significant less auditory hallucinations and preoccupation remains delusional preoccupied which seems chronic but less agitation 02/15; discussed MRI which she is amenable; patient intermittently expressing delusional thoughts 02/17 appears less paranoid, less psychotic, less accusatory to staff here on the unit. 02/19/25 Inc zyprexa made suicidal tgreats to family agaitated paranoid inc olanzapine 5 mg noon 02/20/2025 Olanzapine increased Lamictal increased will file for commitment 02/22: irritable, angry @ [facility] for not being discharged today. 02/23: irritable, angry. wants discharge. continue current mgmt. 02/24/2025 Continue olanzapine check Lamictal level discuss with family possibilities regarding discharge with supervision 02/24/2025 Patient seem less irritable agitated remains delusional preoccupied increase Lamictal to 300 mg check Lamictal level 02/26/2025 Patient seems better on Lamictal and olanzapine less in the way of delusional concerns less agitated about delusional concern court hearing pending discussed with patient consideration of signing back in as an option 02/27/2025 Patient agreeable to slightly longer length of stay to help stabilize mood and psychosis has signed conditional voluntary 02/28/2025\ Continue olanzapine Lamictal Lamictal increased to 300 mg Gastroenterology following patient: 74-year-old female with history of anxiety and depression, paranoid schizophrenia disorder, unspecified asthma, hyperlipidemia, pnp-lhynlpy-[id number] type 2 diabetes, and hypertension admitted to adult Psychiatry on 01/22/25 with after making suicidal and homicidal statements GI consulted for FU of abnormal CT scan of the liver Labs revealed normal LFTs ABD CT scan showed an 3.1 cms Indeterminate hepatic lesions in segments 1 and [address] scan was reviewed with Radiology and no prior images were available No obvious cirrhosis on CT scan Liver lesion can be benign (hepatic hemangioma, focal nodular hyperplasia, hepatocellular adenoma) or malignant (hepatocellular carcinoma, cholangiocarcinoma or metastatic disease) Liver lesion is likely benign since no significant increase in size over the past year (See outside CT report below from 01/23/24) RECOMMENDATIONS: 1. Check AFP and CA 19-9 - order placed for am labs 2. Schedule hepatic protocol MR for further characterization of the hepatic lesion (MRI could not be performed today due to prescence of spinal neurostimulator. Pt's daughter will be bringing the remote for the Neurostimulator on Monday and MRI will likely be done on Monday/Monday if the neurostimulator battery pack is MRI compatible) ADDENDUM: 01/23/[address] SCAN AT AN OUTSIDE FACILITY WHICH SHOWED: 1. Nodular contour of the liver, stage otic appearance. Patent portal veins, normal gallbladder, no bile duct dilation. 2. 4.1 x 4 x 2.9 cm liver lesion identified within segment 7 abutting the IVC. This demonstrates hypervascularity and is concerning for underlying liver lesion. Further characterization with multiphase CT or MRI if the neurostimulator battery pack is MRI compatible. 3. No evidence for an acute abdomen. 02/14/2025 Patient seen case reviewed with gastroenterology also with patient's daughter current situation reviewed. Patient had abdominal CT scan when year ago with question of possible carcinoma patient had been complaining of abdominal pain on the inpatient psychiatry unit and then will CT scan ordered. See GI note. Patient on olanzapine and Abilify Lamictal significant less auditory hallucinations and preoccupation remains delusional preoccupied which seems chronic but less agitation Reason for continued inpatient stay Substantial Risk for: harm to others, inability to function and rapid decompensation Time Spent With Patient Time: Total time managing care of this patient today ____ minutes.
[2025-03-01] MEDS: Levothyroxine Sodium 125 MCG TABLET PO (05:50)
[2025-03-01 08:00] VITALS: BP 139/62; PULSE 78; RESP 18; TEMP 36; O2SAT 98
[2025-03-01] MEDS: Benztropine Mesylate 0.5 MG TABLET PO ×2 (09:08→20:34)
[2025-03-01] MEDS: amantadine HCL 100 MG CAPSULE PO ×2 (09:08→20:34)
[2025-03-01] MEDS: lisinopriL 10 MG TABLET PO (09:09)
[2025-03-01] MEDS: Loratadine 10 MG TABLET PO (09:09)
[2025-03-01] MEDS: ARIPiprazole 20 MG TABLET PO (09:10)
[2025-03-01] MEDS: metFORMIN HCl 500 MG TABLET PO ×2 (09:10→16:35)
[2025-03-01] MEDS: Cholecalciferol (Vitamin D3) 10 MCG TABLET 20 MCG PO (09:10)
[2025-03-01] MEDS: Docusate Sodium 100 MG CAPSULE PO ×2 (09:11→20:33)
[2025-03-01] MEDS: OLANZapine 5 MG TABLET PO (11:53)
--- NOTE | 2025-03-01 13:04 | P.PNPSI_ITS ---
Subjective Subjective Date of Service: 03/01/25 Reason For Visit: other specified schizophrenia spectrum Subjective Notes: Conditional Voluntary Interim History: Patient was seen and discussed in rounds today. Records and plans were reviewed. She is cooperative, medication compliant. Wanting to know when she going to go home. Eating and sleeping adequately. No changes were made today Review of Systems Review of Systems Yes Unobtainable due to mental status Mental Status Exam Mental Status Exam Narrative: Appearance: casual clothing, good hygiene, in NAD Behavior: Calm Psychomotor: Unremarkable Speech: mostly clear, mildly pressured TP: Some degree of racing thoughts TC: Focused on treatment issues able to discuss how to manage thoughts regarding downstairs neighbor Mood: Anxious Affect: labile SI: none expressed HI; none expressed VH/AH: Less distracted Delusions: Decrease delusional preoccupation Insight/judgment: impaired x 2. memory/cog: alert, oriented x3 except for situation. Diagnostics Vital Signs (24Hr): Vital Signs - 24 hr 02/28/25 20:00 03/01/25 08:00 Temperature 97.9 F 96.8 F Pulse Rate 73 78 Respiratory Rate 16 18 Blood Pressure 119/69 139/62 Pulse Oximetry 100 98 Oxygen Delivery Method Room Air Room Air BMI result Body Mass Index 21.7 Labs 02/12/25 07:47 02/26/25 07:22 Imaging Radiology Impressions: ITS Impressions Thyroid Ultrasound 01/22/25 09:21 IMPRESSION: ACR TI RADS 0. Normal thyroid. ACR TI-RADS RECOMMENDATION REFERENCE: Ultrasound-guided fine-needle aspiration, followup ultrasound, no further follow up. * TR1 (0 point) and TR2 (2 points): No FNA or follow up. * TR3 (3 points): FNA if more than or equal to 2.5 cm in maximum dimension, followup ultrasound in 1, 3 and 5 years if 1.5 to 2.4 cm in maximum dimension. * TR4 (4-6 points): FNA if more than or equal to 1.5 cm in maximum dimension, followup ultrasound in 1, 2, 3 and 5 years if 1 to 1.4 cm in maximum dimension. * TR5 (more than or equal to 7 points): FNA if more than or equal to 1 cm in maximum dimension, followup ultrasound every year for 5 years if 0.5 to 0.9 cm in maximum dimension. * TR3, TR4 or TR5 nodules that are below the size threshold for followup receive no follow up. Electronically signed by: Juan Rosenberg MD 01/22/2025 10:02 AM EDT Medications Medications Current Medications Acetaminophen (Acetaminophen 325 Mg Tablet) 650 mg PO Q6H PRN PRN Reason: Headache/Pain, Scale 1-10 Last Admin: 02/26/25 20:41 Dose: 650 mg Al Hydroxide/Mg Hydroxide (Magnesium Hydrox/Alum Hydrox 30 Ml Oral.Susp) 30 ml PO Q6H PRN PRN Reason: Heartburn/Nausea Last Admin: 02/26/25 22:05 Dose: 30 ml Amantadine HCl (Amantadine Hcl 100 Mg Capsule) 100 mg PO BID [facility] Last Admin: 03/01/25 09:08 Dose: 100 mg Aripiprazole (Aripiprazole 20 Mg Tablet) 20 mg PO DAILY [facility] Last Admin: 03/01/25 09:10 Dose: 20 mg Atorvastatin Calcium (Atorvastatin Calcium 80 Mg Tablet) 80 mg PO BEDTIME [facility] Last Admin: 02/28/25 20:12 Dose: 80 mg Benztropine Mesylate (Benztropine Mesylate 0.5 Mg Tablet) 0.5 mg PO BID [facility] Last Admin: 03/01/25 09:08 Dose: 0.5 mg Docusate Sodium (Docusate Sodium 100 Mg Capsule) 100 mg PO BID [facility] Last Admin: 03/01/25 09:11 Dose: 100 mg Lamotrigine (Lamotrigine 100 Mg Tablet) 300 mg PO BEDTIME [facility] Last Admin: 02/28/25 20:12 Dose: 300 mg Levalbuterol HCl (Levalbuterol Hcl 1.25 Mg/3 Ml Vial.Neb) 1.25 mg INHALE Q4H PRN PRN Reason: Wheezing Levothyroxine Sodium (Levothyroxine Sodium 125 Mcg Tablet) 125 mcg PO DAILY@0600 [facility] Last Admin: 03/01/25 05:50 Dose: 125 mcg Lisinopril (Lisinopril 10 Mg Tablet) 10 mg PO DAILY [facility]; Protocol Last Admin: 03/01/25 09:09 Dose: 10 mg Loratadine (Loratadine 10 Mg Tablet) 10 mg PO DAILY [facility] Last Admin: 03/01/25 09:09 Dose: 10 mg Lorazepam (Lorazepam 0.5 Mg Tablet) 0.5 mg PO BID PRN PRN Reason: moderate anxiety Last Admin: 02/27/25 18:31 Dose: 0.5 mg Magnesium Hydroxide (Milk Of Magnesia 30 Ml Oral.Susp) 30 ml PO DAILY PRN PRN Reason: Constipation Metformin HCl (Metformin Hcl 500 Mg Tablet) 500 mg PO BIDWM [facility] Last Admin: 03/01/25 09:10 Dose: 500 mg Nicotine (Nicotine 21 Mg Patch.Td24) 21 mg TRANSDERMA DAILY PRN PRN Reason: smoking cessation Nicotine Polacrilex (Nicotine Polacrilex 2 Mg Gum) 4 mg BUCCAL Q2H PRN PRN Reason: Nicotine Cravings Olanzapine (Olanzapine Odt 10 Mg Tab.Rapdis) 20 mg TRANSLINGU BEDTIME [facility] Last Admin: 02/28/25 20:12 Dose: 20 mg Olanzapine (Olanzapine 2.5 Mg Tablet) 2.5 mg PO Q4H PRN PRN Reason: Psychosis Last Admin: 02/24/25 23:53 Dose: 2.5 mg Olanzapine (Olanzapine 5 Mg Tablet) 5 mg PO DAILY@1230 [facility] Last Admin: 03/01/25 11:53 Dose: 5 mg Vitamin D (Cholecalciferol (Vitamin D3) 10 Mcg Tablet) 20 mcg PO DAILY [facility] Last Admin: 03/01/25 09:10 Dose: 20 mcg Allergies Allergies Allergy/AdvReac Type Severity Reaction Status Date / Time Seasonal Allergies Allergy Nasal Verified 01/21/25 16:35 congestion Assessment & Plan Assessment & Plan (1) Schizophrenia, paranoid type: Status: Acute Code(s): F20.0 - Paranoid schizophrenia (2) Abnormal CT of liver: Status: Acute Code(s): R93.2 - Abnormal findings on diagnostic imaging of liver and biliary tract (3) COPD (chronic obstructive pulmonary disease): Qualifiers: COPD type: chronic bronchitis Chronic bronchitis type: simple Q ualified Code(s): J41.0 - Simple chronic bronchitis Status: Acute Code(s): J44.9 - Chronic obstructive pulmonary disease, unspecified (4) Cognitive disorder: Status: Suspected Code(s): F09 - Unspecified mental disorder due to known physiological condition (5) Graves disease: Status: Acute Code(s): E05.00 - Thyrotoxicosis with diffuse goiter without thyrotoxic crisis or storm Plan The patient likely has air trapping for the COPD. If she gets anxious or if she is dyspneic, she will likely have worsening air trapping making her breathing worse. Currently, she is well. start short acting beta agonist as needed Tobacco cessation Outpt PFTs/CXR Maybe a candidate for the Lung cancer screening program as an outpt 02/09: Continue current plans and regimen. Added Ativan 0.5 mg b.i.d. p.r.n. 02/10 Patient said she wants to go home... Says I feel good and I want to go home.. Today patient got anxious when learning she needed to get an echocardiogram; in her anxiety, she started yelling out saying Cecilia go ahead and tell them all my medical issues... Patient's daughter present who said that this is patient's downstairs neighbor whom she is paranoid about 02/11 Increase olanzapine at 20 mg olanzapine p.r.n. also ordered Abilify increased back to 20 mg check EKG patient perhaps seems to be responding somewhat to olanzapine had been severely agitated floridly hallucinating and agitated. Check abdominal CT scan given question of liver mass liver cancer and abdominal pain 02/12 Patient seems somewhat improved less agitated on olanzapine abdominal CT scan ordered case reviewed with patient's primary care office patient was supposed to have follow-up regarding question of liver mass patient complains of abdominal pain agreeable to abdominal CT scan could be contributing factor to psychiatric presentation. Patient was able to give informed consent 02/13/2025 Continue olanzapine Abilify patient remains delusional but significantly calmer less agitated able to cooperate with medical workup including abdominal/pelvic ultrasound which shows liver lesions. Gastroenterology involved 02/14/2025 Patient seen case reviewed with gastroenterology also with patient's daughter current situation reviewed. Patient had abdominal CT scan when year ago with question of possible carcinoma patient had been complaining of abdominal pain on the inpatient psychiatry unit and then will CT scan ordered. See GI note. Patient on olanzapine and Abilify Lamictal significant less auditory hallucinations and preoccupation remains delusional preoccupied which seems chronic but less agitation 02/15; discussed MRI which she is amenable; patient intermittently expressing delusional thoughts 02/17 appears less paranoid, less psychotic, less accusatory to staff here on the unit. 02/19/25 Inc zyprexa made suicidal tgreats to family agaitated paranoid inc olanzapine 5 mg noon 02/20/2025 Olanzapine increased Lamictal increased will file for commitment 02/22: irritable, angry @ [facility] for not being discharged today. 02/23: irritable, angry. wants discharge. continue current mgmt. 02/24/2025 Continue olanzapine check Lamictal level discuss with family possibilities regarding discharge with supervision 02/24/2025 Patient seem less irritable agitated remains delusional preoccupied increase Lamictal to 300 mg check Lamictal level 02/26/2025 Patient seems better on Lamictal and olanzapine less in the way of delusional concerns less agitated about delusional concern court hearing pending discussed with patient consideration of signing back in as an option 02/27/2025 Patient agreeable to slightly longer length of stay to help stabilize mood and psychosis has signed conditional voluntary 02/28/2025\ Continue olanzapine Lamictal Lamictal increased to 300 mg Gastroenterology following patient: 74-year-old female with history of anxiety and depression, paranoid schizophrenia disorder, unspecified asthma, hyperlipidemia, [id number]-[id number] type 2 diabetes, and hypertension admitted to adult Psychiatry on 01/22/25 with after making suicidal and homicidal statements GI consulted for FU of abnormal CT scan of the liver Labs revealed normal LFTs ABD CT scan showed an 3.1 cms Indeterminate hepatic lesions in segments 1 and [address] scan was reviewed with Radiology and no prior images were available No obvious cirrhosis on CT scan Liver lesion can be benign (hepatic hemangioma, focal nodular hyperplasia, hepatocellular adenoma) or malignant (hepatocellular carcinoma, cholangiocarcinoma or metastatic disease) Liver lesion is likely benign since no significant increase in size over the past year (See outside CT report below from 01/23/24) RECOMMENDATIONS: 1. Check AFP and CA 19-9 - order placed for am labs 2. Schedule hepatic protocol MR for further characterization of the hepatic lesion (MRI could not be performed today due to prescence of spinal neurostimulator. Pt's daughter will be bringing the remote for the Neurostimulator on Monday and MRI will likely be done on Monday/Monday if the neurostimulator battery pack is MRI compatible) ADDENDUM: 01/23/[address] SCAN AT AN OUTSIDE FACILITY WHICH SHOWED: 1. Nodular contour of the liver, stage otic appearance. Patent portal veins, normal gallbladder, no bile duct dilation. 2. 4.1 x 4 x 2.9 cm liver lesion identified within segment 7 abutting the IVC. This demonstrates hypervascularity and is concerning for underlying liver lesion. Further characterization with multiphase CT or MRI if the neurostimulator battery pack is MRI compatible. 3. No evidence for an acute abdomen. 02/14/2025 Patient seen case reviewed with gastroenterology also with patient's daughter current situation reviewed. Patient had abdominal CT scan when year ago with question of possible carcinoma patient had been complaining of abdominal pain on the inpatient psychiatry unit and then will CT scan ordered. See GI note. Patient on olanzapine and Abilify Lamictal significant less auditory hallucinations and preoccupation remains delusional preoccupied which seems chronic but less agitation 03/01: Continue current regimen and plans Reason for continued inpatient stay Substantial Risk for: inability to function Time Spent With Patient Time: Total time managing care of this patient today ____ minutes.
[2025-03-01 19:23] LABS: Lamotrigine Lamictal 4.5 mcg/mL (2.5-15.0)
[2025-03-01 20:00] VITALS: BP 134/64; PULSE 76; RESP 16; TEMP 36.1; O2SAT 98
[2025-03-01] MEDS: OLANZapine ODT 10 MG TAB.RAPDIS 20 MG TRANSLINGU (20:33)
[2025-03-01] MEDS: Atorvastatin Calcium 80 MG TABLET PO (20:33)
[2025-03-01] MEDS: lamoTRIgine 100 MG TABLET 300 MG PO (20:34)
[2025-03-02] MEDS: LORazepam 0.5 MG TABLET PO (05:07)
[2025-03-02] MEDS: Levothyroxine Sodium 125 MCG TABLET PO (05:07)
[2025-03-02 07:58] VITALS: BP 112/59; PULSE 81; RESP 16; TEMP 36.4; O2SAT 100
[2025-03-02] MEDS: Benztropine Mesylate 0.5 MG TABLET PO ×2 (08:50→19:36)
[2025-03-02] MEDS: metFORMIN HCl 500 MG TABLET PO ×2 (08:50→16:45)
[2025-03-02] MEDS: Cholecalciferol (Vitamin D3) 10 MCG TABLET 20 MCG PO (08:50)
[2025-03-02] MEDS: Loratadine 10 MG TABLET PO (08:51)
[2025-03-02] MEDS: Docusate Sodium 100 MG CAPSULE PO ×2 (08:51→19:36)
[2025-03-02] MEDS: amantadine HCL 100 MG CAPSULE PO ×2 (08:51→19:36)
[2025-03-02] MEDS: lisinopriL 10 MG TABLET PO (08:51)
[2025-03-02] MEDS: ARIPiprazole 20 MG TABLET PO (08:51)
[2025-03-02] MEDS: Acetaminophen 325 MG TABLET 650 MG PO (08:57)
--- NOTE | 2025-03-02 10:52 | HO.PSYCHPN ---
Subjective Subjective Date of Service: 03/02/25 Reason For Visit: other specified schizophrenia spectrum Subjective Notes: Conditional Voluntary Interim History: Patient was seen and discussed in rounds today. Records and plans were reviewed. No changes are reported. She continues to be delusional. Eating and sleeping adequately. No complaints or side effects. No changes were made today Review of Systems Review of Systems Yes all other systems are reviewed and are negative Mental Status Exam Mental Status Exam Narrative: Appearance: casual clothing, good hygiene, in NAD Behavior: Calm Psychomotor: Unremarkable Speech: mostly clear, mildly pressured TP: Some degree of racing thoughts TC: Focused on treatment issues able to discuss how to manage thoughts regarding downstairs neighbor Mood: Anxious Affect: labile SI: none expressed HI; none expressed VH/AH: Less distracted Delusions: Decrease delusional preoccupation Insight/judgment: impaired x 2. memory/cog: alert, oriented x3 except for situation. Diagnostics Vital Signs (24Hr): Vital Signs - 24 hr 03/01/25 20:00 03/02/25 07:58 Temperature 97 F 97.5 F Pulse Rate 76 81 Respiratory Rate 16 16 Blood Pressure 134/64 112/59 L Pulse Oximetry 98 100 Oxygen Delivery Method Room Air Room Air BMI result Body Mass Index 21.7 Labs 02/12/25 07:47 02/26/25 07:22 Labs: Laboratory Results - last 48 hr 02/26/25 07:22 Lamotrigine 4.5 Imaging Radiology Impressions: ITS Impressions Thyroid Ultrasound 01/22/25 09:21 IMPRESSION: ACR TI RADS 0. Normal thyroid. ACR TI-RADS RECOMMENDATION REFERENCE: Ultrasound-guided fine-needle aspiration, followup ultrasound, no further follow up. * TR1 (0 point) and TR2 (2 points): No FNA or follow up. * TR3 (3 points): FNA if more than or equal to 2.5 cm in maximum dimension, followup ultrasound in 1, 3 and 5 years if 1.5 to 2.4 cm in maximum dimension. * TR4 (4-6 points): FNA if more than or equal to 1.5 cm in maximum dimension, followup ultrasound in 1, 2, 3 and 5 years if 1 to 1.4 cm in maximum dimension. * TR5 (more than or equal to 7 points): FNA if more than or equal to 1 cm in maximum dimension, followup ultrasound every year for 5 years if 0.5 to 0.9 cm in maximum dimension. * TR3, TR4 or TR5 nodules that are below the size threshold for followup receive no follow up. Electronically signed by: Juan Rosenberg MD 01/22/2025 10:02 AM EDT Medications Medications Current Medications Acetaminophen (Acetaminophen 325 Mg Tablet) 650 mg PO Q6H PRN PRN Reason: Headache/Pain, Scale 1-10 Last Admin: 03/02/25 08:57 Dose: 650 mg Al Hydroxide/Mg Hydroxide (Magnesium Hydrox/Alum Hydrox 30 Ml Oral.Susp) 30 ml PO Q6H PRN PRN Reason: Heartburn/Nausea Last Admin: 02/26/25 22:05 Dose: 30 ml Amantadine HCl (Amantadine Hcl 100 Mg Capsule) 100 mg PO BID [facility] Last Admin: 03/02/25 08:51 Dose: 100 mg Aripiprazole (Aripiprazole 20 Mg Tablet) 20 mg PO DAILY [facility] Last Admin: 03/02/25 08:51 Dose: 20 mg Atorvastatin Calcium (Atorvastatin Calcium 80 Mg Tablet) 80 mg PO BEDTIME [facility] Last Admin: 03/01/25 20:33 Dose: 80 mg Benztropine Mesylate (Benztropine Mesylate 0.5 Mg Tablet) 0.5 mg PO BID [facility] Last Admin: 03/02/25 08:50 Dose: 0.5 mg Docusate Sodium (Docusate Sodium 100 Mg Capsule) 100 mg PO BID [facility] Last Admin: 03/02/25 08:51 Dose: 100 mg Lamotrigine (Lamotrigine 100 Mg Tablet) 300 mg PO BEDTIME [facility] Last Admin: 03/01/25 20:34 Dose: 300 mg Levalbuterol HCl (Levalbuterol Hcl 1.25 Mg/3 Ml Vial.Neb) 1.25 mg INHALE Q4H PRN PRN Reason: Wheezing Levothyroxine Sodium (Levothyroxine Sodium 125 Mcg Tablet) 125 mcg PO DAILY@0600 [facility] Last Admin: 03/02/25 05:07 Dose: 125 mcg Lisinopril (Lisinopril 10 Mg Tablet) 10 mg PO DAILY [facility]; Protocol Last Admin: 03/02/25 08:51 Dose: 10 mg Loratadine (Loratadine 10 Mg Tablet) 10 mg PO DAILY [facility] Last Admin: 03/02/25 08:51 Dose: 10 mg Lorazepam (Lorazepam 0.5 Mg Tablet) 0.5 mg PO BID PRN PRN Reason: moderate anxiety Last Admin: 03/02/25 05:07 Dose: 0.5 mg Magnesium Hydroxide (Milk Of Magnesia 30 Ml Oral.Susp) 30 ml PO DAILY PRN PRN Reason: Constipation Metformin HCl (Metformin Hcl 500 Mg Tablet) 500 mg PO BIDWM [facility] Last Admin: 03/02/25 08:50 Dose: 500 mg Nicotine (Nicotine 21 Mg Patch.Td24) 21 mg TRANSDERMA DAILY PRN PRN Reason: smoking cessation Nicotine Polacrilex (Nicotine Polacrilex 2 Mg Gum) 4 mg BUCCAL Q2H PRN PRN Reason: Nicotine Cravings Olanzapine (Olanzapine Odt 10 Mg Tab.Rapdis) 20 mg TRANSLINGU BEDTIME [facility] Last Admin: 03/01/25 20:33 Dose: 20 mg Olanzapine (Olanzapine 2.5 Mg Tablet) 2.5 mg PO Q4H PRN PRN Reason: Psychosis Last Admin: 02/24/25 23:53 Dose: 2.5 mg Olanzapine (Olanzapine 5 Mg Tablet) 5 mg PO DAILY@1230 [facility] Last Admin: 03/01/25 11:53 Dose: 5 mg Vitamin D (Cholecalciferol (Vitamin D3) 10 Mcg Tablet) 20 mcg PO DAILY [facility] Last Admin: 03/02/25 08:50 Dose: 20 mcg Allergies Allergies Allergy/AdvReac Type Severity Reaction Status Date / Time Seasonal Allergies Allergy Nasal Verified 01/21/25 16:35 congestion Assessment & Plan Assessment & Plan (1) Schizophrenia, paranoid type: Status: Acute Code(s): F20.0 - Paranoid schizophrenia (2) Abnormal CT of liver: Status: Acute Code(s): R93.2 - Abnormal findings on diagnostic imaging of liver and biliary tract (3) COPD (chronic obstructive pulmonary disease): Qualifiers: COPD type: chronic bronchitis Chronic bronchitis type: simple Qualified Code(s): J41.0 - Simple chronic bronchitis Status: Acute Code(s): J44.9 - Chronic obstructive pulmonary disease, unspecified (4) Cognitive disorder: Status: Suspected Code(s): F09 - Unspecified mental disorder due to known physiological condition (5) Graves disease: Status: Acute Code(s): E05.00 - Thyrotoxicosis with diffuse goiter without thyrotoxic crisis or storm Plan The patient likely has air trapping for the COPD. If she gets anxious or if she is dyspneic, she will likely have worsening air trapping making her breathing worse. Currently, she is well. start short acting beta agonist as needed Tobacco cessation Outpt PFTs/CXR Maybe a candidate for the Lung cancer screening program as an outpt 02/09: Continue current plans and regimen. Added Ativan 0.5 mg b.i.d. p.r.n. 02/10 Patient said she wants to go home... Says I feel good and I want to go home.. Today patient got anxious when learning she needed to get an echocardiogram; in her anxiety, she started yelling out saying Cecilia go ahead and tell them all my medical issues... Patient's daughter present who said that this is patient's downstairs neighbor whom she is paranoid about 02/11 Increase olanzapine at 20 mg olanzapine p.r.n. also ordered Abilify increased back to 20 mg check EKG patient perhaps seems to be responding somewhat to olanzapine had been severely agitated floridly hallucinating and agitated. Check abdominal CT scan given question of liver mass liver cancer and abdominal pain 02/12 Patient seems somewhat improved less agitated on olanzapine abdominal CT scan ordered case reviewed with patient's primary care office patient was supposed to have follow-up regarding question of liver mass patient complains of abdominal pain agreeable to abdominal CT scan could be contributing factor to psychiatric presentation. Patient was able to give informed consent 02/13/2025 Continue olanzapine Abilify patient remains delusional but significantly calmer less agitated able to cooperate with medical workup including abdominal/pelvic ultrasound which shows liver lesions. Gastroenterology involved 02/14/2025 Patient seen case reviewed with gastroenterology also with patient's daughter current situation reviewed. Patient had abdominal CT scan when year ago with question of possible carcinoma patient had been complaining of abdominal pain on the inpatient psychiatry unit and then will CT scan ordered. See GI note. Patient on olanzapine and Abilify Lamictal significant less auditory hallucinations and preoccupation remains delusional preoccupied which seems chronic but less agitation 02/15; discussed MRI which she is amenable; patient intermittently expressing delusional thoughts 02/17 appears less paranoid, less psychotic, less accusatory to staff here on the unit. 02/19/25 Inc zyprexa made suicidal tgreats to family agaitated paranoid inc olanzapine 5 mg noon 02/20/2025 Olanzapine increased Lamictal increased will file for commitment 02/22: irritable, angry @ [facility] for not being discharged today. 02/23: irritable, angry. wants discharge. continue current mgmt. 02/24/2025 Continue olanzapine check Lamictal level discuss with family possibilities regarding discharge with supervision 02/24/2025 Patient seem less irritable agitated remains delusional preoccupied increase Lamictal to 300 mg check Lamictal level 02/26/2025 Patient seems better on Lamictal and olanzapine less in the way of delusional concerns less agitated about delusional concern court hearing pending discussed with patient consideration of signing back in as an option 02/27/2025 Patient agreeable to slightly longer length of stay to help stabilize mood and psychosis has signed conditional voluntary 02/28/2025\ Continue olanzapine Lamictal Lamictal increased to 300 mg Gastroenterology following patient: 74-year-old female with history of anxiety and depression, paranoid schizophrenia disorder, unspecified asthma, hyperlipidemia, [id number] type 2 diabetes, and hypertension admitted to adult Psychiatry on 01/22/25 with after making suicidal and homicidal statements GI consulted for FU of abnormal CT scan of the liver Labs revealed normal LFTs ABD CT scan showed an 3.1 cms Indeterminate hepatic lesions in segments 1 and [address] scan was reviewed with Radiology and no prior images were available No obvious cirrhosis on CT scan Liver lesion can be benign (hepatic hemangioma, focal nodular hyperplasia, hepatocellular adenoma) or malignant (hepatocellular carcinoma, cholangiocarcinoma or metastatic disease) Liver lesion is likely benign since no significant increase in size over the past year (See outside CT report below from 01/23/24) RECOMMENDATIONS: 1. Check AFP and CA 19-9 - order placed for am labs 2. Schedule hepatic protocol MR for further characterization of the hepatic lesion (MRI could not be performed today due to prescence of spinal neurostimulator. Pt's daughter will be bringing the remote for the Neurostimulator on Monday and MRI will likely be done on Monday/Monday if the neurostimulator battery pack is MRI compatible) ADDENDUM: 01/23/[address] SCAN AT AN OUTSIDE FACILITY WHICH SHOWED: 1. Nodular contour of the liver, stage otic appearance. Patent portal veins, normal gallbladder, no bile duct dilation. 2. 4.1 x 4 x 2.9 cm liver lesion identified within segment 7 abutting the IVC. This demonstrates hypervascularity and is concerning for underlying liver lesion. Further characterization with multiphase CT or MRI if the neurostimulator battery pack is MRI compatible. 3. No evidence for an acute abdomen. 02/14/2025 Patient seen case reviewed with gastroenterology also with patient's daughter current situation reviewed. Patient had abdominal CT scan when year ago with question of possible carcinoma patient had been complaining of abdominal pain on the inpatient psychiatry unit and then will CT scan ordered. See GI note. Patient on olanzapine and Abilify Lamictal significant less auditory hallucinations and preoccupation remains delusional preoccupied which seems chronic but less agitation 03/01: Continue current regimen and plans 03/02: Continue current regimen and plans Reason for continued inpatient stay Substantial Risk for: med/psych decompensation Time Spent With Patient Time: Total time managing care of this patient today ____ minutes.
[2025-03-02] MEDS: OLANZapine 5 MG TABLET PO (12:07)
[2025-03-02 19:33] VITALS: BP 129/58; PULSE 83; RESP 16; TEMP 36.9; O2SAT 99
[2025-03-02] MEDS: Atorvastatin Calcium 80 MG TABLET PO (19:36)
[2025-03-02] MEDS: lamoTRIgine 100 MG TABLET 300 MG PO (19:36)
[2025-03-02] MEDS: OLANZapine ODT 10 MG TAB.RAPDIS 20 MG TRANSLINGU (19:36)
[2025-03-03] MEDS: Levothyroxine Sodium 125 MCG TABLET PO (05:17)
[2025-03-03 08:00] VITALS: BP 129/89; PULSE 71; RESP 18; TEMP 36.3; O2SAT 100
[2025-03-03 08:49] VITALS: BP 129/89
[2025-03-03] MEDS: lisinopriL 10 MG TABLET PO (08:49)
[2025-03-03] MEDS: Cholecalciferol (Vitamin D3) 10 MCG TABLET 20 MCG PO (08:50)
[2025-03-03] MEDS: amantadine HCL 100 MG CAPSULE PO ×2 (08:50→19:29)
[2025-03-03] MEDS: Benztropine Mesylate 0.5 MG TABLET PO ×2 (08:50→19:30)
[2025-03-03] MEDS: ARIPiprazole 20 MG TABLET PO (08:50)
[2025-03-03] MEDS: Docusate Sodium 100 MG CAPSULE PO ×2 (08:50→19:30)
[2025-03-03] MEDS: Loratadine 10 MG TABLET PO (08:50)
[2025-03-03] MEDS: metFORMIN HCl 500 MG TABLET PO ×2 (08:50→16:46)
--- NOTE | 2025-03-03 11:18 | P.PNPSI_ITS ---
Subjective Subjective Date of Service: 03/03/25 Reason For Visit: other specified schizophrenia spectrum Subjective Notes: Conditional Voluntary Interim History: Patient seen psychiatric follow-up significantly less agitated. Veins with intrusive auditory hallucination calmer less labile in the milieu has been sleeping taking medication Mental Status Exam Mental Status Exam Narrative: Appearance: casual clothing, good hygiene, in NAD Behavior: Calm Psychomotor: Unremarkable Speech: mostly clear, mildly pressured TP: Some degree of racing thoughts TC: Focused on discharge and clear improvement Mood: Anxious Affect: labile SI: none expressed HI; none expressed VH/AH: Less distracted positive intermittent hallucinations Delusions: Decrease delusional preoccupation Insight/judgment: impaired x 2. memory/cog: alert, oriented x3 except for situation. Diagnostics Vital Signs (24Hr): Vital Signs - 24 hr 03/02/25 19:33 03/03/25 08:00 03/03/25 08:49 Temperature 98.4 F 97.3 F Pulse Rate 83 71 Respiratory Rate 16 18 Blood Pressure 129/58 L 129/89 129/89 Pulse Oximetry 99 100 Oxygen Delivery Method Room Air Room Air BMI result Body Mass Index 21.7 Labs 02/12/25 07:47 02/26/25 07:22 Labs: Laboratory Results - last 48 hr 02/26/25 07:22 Lamotrigine 4.5 Imaging Radiology Impressions: ITS Impressions Thyroid Ultrasound 01/22/25 09:21 IMPRESSION: ACR TI RADS 0. Normal thyroid. ACR TI-RADS RECOMMENDATION REFERENCE: Ultrasound-guided fine-needle aspiration, followup ultrasound, no further follow up. * TR1 (0 point) and TR2 (2 points): No FNA or follow up. * TR3 (3 points): FNA if more than or equal to 2.5 cm in maximum dimension, followup ultrasound in 1, 3 and 5 years if 1.5 to 2.4 cm in maximum dimension. * TR4 (4-6 points): FNA if more than or equal to 1.5 cm in maximum dimension, followup ultrasound in 1, 2, 3 and 5 years if 1 to 1.4 cm in maximum dimension. * TR5 (more than or equal to 7 points): FNA if more than or equal to 1 cm in maximum dimension, followup ultrasound every year for 5 years if 0.5 to 0.9 cm in maximum dimension. * TR3, TR4 or TR5 nodules that are below the size threshold for followup receive no follow up. Electronically signed by: Juan Rosenberg MD 01/22/2025 10:02 AM EDT Medications Medications Current Medications Acetaminophen (Acetaminophen 325 Mg Tablet) 650 mg PO Q6H PRN PRN Reason: Headache/Pain, Scale 1-10 Last Admin: 03/02/25 08:57 Dose: 650 mg Al Hydroxide/Mg Hydroxide (Magnesium Hydrox/Alum Hydrox 30 Ml Oral.Susp) 30 ml PO Q6H PRN PRN Reason: Heartburn/Nausea Last Admin: 02/26/25 22:05 Dose: 30 ml Amantadine HCl (Amantadine Hcl 100 Mg Capsule) 100 mg PO BID [facility] Last Admin: 03/03/25 08:50 Dose: 100 mg Aripiprazole (Aripiprazole 20 Mg Tablet) 20 mg PO DAILY [facility] Last Admin: 03/03/25 08:50 Dose: 20 mg Atorvastatin Calcium (Atorvastatin Calcium 80 Mg Tablet) 80 mg PO BEDTIME [facility] Last Admin: 03/02/25 19:36 Dose: 80 mg Benztropine Mesylate (Benztropine Mesylate 0.5 Mg Tablet) 0.5 mg PO BID [facility] Last Admin: 03/03/25 08:50 Dose: 0.5 mg Docusate Sodium (Docusate Sodium 100 Mg Capsule) 100 mg PO BID [facility] Last Admin: 03/03/25 08:50 Dose: 100 mg Lamotrigine (Lamotrigine 100 Mg Tablet) 300 mg PO BEDTIME [facility] Last Admin: 03/02/25 19:36 Dose: 300 mg Levalbuterol HCl (Levalbuterol Hcl 1.25 Mg/3 Ml Vial.Neb) 1.25 mg INHALE Q4H PRN PRN Reason: Wheezing Levothyroxine Sodium (Levothyroxine Sodium 125 Mcg Tablet) 125 mcg PO DAILY@0600 [facility] Last Admin: 03/03/25 05:17 Dose: 125 mcg Lisinopril (Lisinopril 10 Mg Tablet) 10 mg PO DAILY [facility]; Protocol Last Admin: 03/03/25 08:49 Dose: 10 mg Loratadine (Loratadine 10 Mg Tablet) 10 mg PO DAILY [facility] Last Admin: 03/03/25 08:50 Dose: 10 mg Lorazepam (Lorazepam 0.5 Mg Tablet) 0.5 mg PO BID PRN PRN Reason: moderate anxiety Last Admin: 03/02/25 05:07 Dose: 0.5 mg Magnesium Hydroxide (Milk Of Magnesia 30 Ml Oral.Susp) 30 ml PO DAILY PRN PRN Reason: Constipation Metformin HCl (Metformin Hcl 500 Mg Tablet) 500 mg PO BIDWM [facility] Last Admin: 03/03/25 08:50 Dose: 500 mg Nicotine (Nicotine 21 Mg Patch.Td24) 21 mg TRANSDERMA DAILY PRN PRN Reason: smoking cessation Nicotine Polacrilex (Nicotine Polacrilex 2 Mg Gum) 4 mg BUCCAL Q2H PRN PRN Reason: Nicotine Cravings Olanzapine (Olanzapine Odt 10 Mg Tab.Rapdis) 20 mg TRANSLINGU BEDTIME [facility] Last Admin: 03/02/25 19:36 Dose: 20 mg Olanzapine (Olanzapine 2.5 Mg Tablet) 2.5 mg PO Q4H PRN PRN Reason: Psychosis Last Admin: 02/24/25 23:53 Dose: 2.5 mg Olanzapine (Olanzapine 5 Mg Tablet) 5 mg PO DAILY@1230 [facility] Last Admin: 03/02/25 12:07 Dose: 5 mg Vitamin D (Cholecalciferol (Vitamin D3) 10 Mcg Tablet) 20 mcg PO DAILY [facility] Last Admin: 03/03/25 08:50 Dose: 20 mcg Allergies Allergies Allergy/AdvReac Type Severity Reaction Status Date / Time Seasonal Allergies Allergy Nasal Verified 01/21/25 16:35 congestion Assessment & Plan Assessment & Plan (1) Schizophrenia, paranoid type: Status: Acute Code(s): F20.0 - Paranoid schizophrenia (2) Abnormal CT of liver: Status: Acute Code(s): R93.2 - Abnormal findings on diagnostic imaging of liver and biliary tract (3) COPD (chronic obstructive pulmonary disease): Qualifiers: COPD type: chronic bronchitis Chronic bronchitis type: simple Q ualified Code(s): J41.0 - Simple chronic bronchitis Status: Acute Code(s): J44.9 - Chronic obstructive pulmonary disease, unspecified (4) Cognitive disorder: Status: Suspected Code(s): F09 - Unspecified mental disorder due to known physiological condition (5) Graves disease: Status: Acute Code(s): E05.00 - Thyrotoxicosis with diffuse goiter without thyrotoxic crisis or storm Plan The patient likely has air trapping for the COPD. If she gets anxious or if she is dyspneic, she will likely have worsening air trapping making her breathing worse. Currently, she is well. start short acting beta agonist as needed Tobacco cessation Outpt PFTs/CXR Maybe a candidate for the Lung cancer screening program as an outpt 02/09: Continue current plans and regimen. Added Ativan 0.5 mg b.i.d. p.r.n. 02/10 Patient said she wants to go home... Says I feel good and I want to go home.. Today patient got anxious when learning she needed to get an echocardiogram; in her anxiety, she started yelling out saying Cecilia go ahead and tell them all my medical issues... Patient's daughter present who said that this is patient's downstairs neighbor whom she is paranoid about 02/11 Increase olanzapine at 20 mg olanzapine p.r.n. also ordered Abilify increased back to 20 mg check EKG patient perhaps seems to be responding somewhat to olanzapine had been severely agitated floridly hallucinating and agitated. Check abdominal CT scan given question of liver mass liver cancer and abdominal pain 02/12 Patient seems somewhat improved less agitated on olanzapine abdominal CT scan ordered case reviewed with patient's primary care office patient was supposed to have follow-up regarding question of liver mass patient complains of abdominal pain agreeable to abdominal CT scan could be contributing factor to psychiatric presentation. Patient was able to give informed consent 02/13/2025 Continue olanzapine Abilify patient remains delusional but significantly calmer less agitated able to cooperate with medical workup including abdominal/pelvic ultrasound which shows liver lesions. Gastroenterology involved 02/14/2025 Patient seen case reviewed with gastroenterology also with patient's daughter current situation reviewed. Patient had abdominal CT scan when year ago with question of possible carcinoma patient had been complaining of abdominal pain on the inpatient psychiatry unit and then will CT scan ordered. See GI note. Patient on olanzapine and Abilify Lamictal significant less auditory hallucinations and preoccupation remains delusional preoccupied which seems chronic but less agitation 02/15; discussed MRI which she is amenable; patient intermittently expressing delusional thoughts 02/17 appears less paranoid, less psychotic, less accusatory to staff here on the unit. 02/19/25 Inc zyprexa made suicidal tgreats to family agaitated paranoid inc olanzapine 5 mg noon 02/20/2025 Olanzapine increased Lamictal increased will file for commitment 02/22: irritable, angry @ [facility] for not being discharged today. 02/23: irritable, angry. wants discharge. continue current mgmt. 02/24/2025 Continue olanzapine check Lamictal level discuss with family possibilities regarding discharge with supervision 02/24/2025 Patient seem less irritable agitated remains delusional preoccupied increase Lamictal to 300 mg check Lamictal level 02/26/2025 Patient seems better on Lamictal and olanzapine less in the way of delusional concerns less agitated about delusional concern court hearing pending discussed with patient consideration of signing back in as an option 02/27/2025 Patient agreeable to slightly longer length of stay to help stabilize mood and psychosis has signed conditional voluntary 02/28/2025\ Continue olanzapine Lamictal Lamictal increased to 300 mg Gastroenterology following patient: 74-year-old female with history of anxiety and depression, paranoid schizophrenia disorder, unspecified asthma, hyperlipidemia, [id number] type 2 diabetes, and hypertension admitted to adult Psychiatry on 01/22/25 with after making suicidal and homicidal statements GI consulted for FU of abnormal CT scan of the liver Labs revealed normal LFTs ABD CT scan showed an 3.1 cms Indeterminate hepatic lesions in segments 1 and [address] scan was reviewed with Radiology and no prior images were available No obvious cirrhosis on CT scan Liver lesion can be benign (hepatic hemangioma, focal nodular hyperplasia, hepatocellular adenoma) or malignant (hepatocellular carcinoma, cholangiocarcinoma or metastatic disease) Liver lesion is likely benign since no significant increase in size over the past year (See outside CT report below from 01/23/24) RECOMMENDATIONS: 1. Check AFP and CA 19-9 - order placed for am labs 2. Schedule hepatic protocol MR for further characterization of the hepatic lesion (MRI could not be performed today due to prescence of spinal neurostimulator. Pt's daughter will be bringing the remote for the Neurostimulator on Monday and MRI will likely be done on Monday/Monday if the neurostimulator battery pack is MRI compatible) ADDENDUM: 01/23/[address] SCAN AT AN OUTSIDE FACILITY WHICH SHOWED: 1. Nodular contour of the liver, stage otic appearance. Patent portal veins, normal gallbladder, no bile duct dilation. 2. 4.1 x 4 x 2.9 cm liver lesion identified within segment 7 abutting the IVC. This demonstrates hypervascularity and is concerning for underlying liver lesion. Further characterization with multiphase CT or MRI if the neurostimulator battery pack is MRI compatible. 3. No evidence for an acute abdomen. 02/14/2025 Patient seen case reviewed with gastroenterology also with patient's daughter current situation reviewed. Patient had abdominal CT scan when year ago with question of possible carcinoma patient had been complaining of abdominal pain on the inpatient psychiatry unit and then will CT scan ordered. See GI note. Patient on olanzapine and Abilify Lamictal significant less auditory hallucinations and preoccupation remains delusional preoccupied which seems chronic but less agitation 03/01: Continue current regimen and plans 03/02: Continue current regimen and plans 03/03/2025 Continue olanzapine and Lamictal patient gradually improved improving remains with intermittent auditory hallucinations but less toxic less disturbing. Discharge planning. Family where patient needs further liver workup outpatient Reason for continued inpatient stay Substantial Risk for: harm to others and rapid decompensation Time Spent With Patient Time: Total time managing care of this patient today ____ minutes.
[2025-03-03] MEDS: OLANZapine 5 MG TABLET PO (12:29)
[2025-03-03 19:26] VITALS: BP 141/63; PULSE 71; RESP 15; TEMP 36.1; O2SAT 99
[2025-03-03] MEDS: Atorvastatin Calcium 80 MG TABLET PO (19:29)
[2025-03-03] MEDS: OLANZapine ODT 10 MG TAB.RAPDIS 20 MG TRANSLINGU (19:29)
[2025-03-03] MEDS: lamoTRIgine 100 MG TABLET 300 MG PO (19:30)
[2025-03-03] MEDS: Magnesium Hydrox/Alum Hydrox 30 ML ORAL.SUSP PO (22:19)
[2025-03-04] MEDS: Levothyroxine Sodium 125 MCG TABLET PO (05:17)
[2025-03-04 07:58] LABS: Creatinine Clr Calc Pharmacy 55.9; Estimated Glomerular Filt Rate > 60
[2025-03-04 08:00] VITALS: BP 151/61; PULSE 82; RESP 17; TEMP 36.4; O2SAT 98
[2025-03-04] MEDS: Cholecalciferol (Vitamin D3) 10 MCG TABLET 20 MCG PO (08:38)
[2025-03-04] MEDS: lisinopriL 10 MG TABLET PO (08:38)
[2025-03-04] MEDS: Docusate Sodium 100 MG CAPSULE PO ×2 (08:38→20:51)
[2025-03-04] MEDS: Benztropine Mesylate 0.5 MG TABLET PO ×2 (08:38→20:48)
[2025-03-04] MEDS: amantadine HCL 100 MG CAPSULE PO ×2 (08:38→20:49)
[2025-03-04] MEDS: metFORMIN HCl 500 MG TABLET PO ×2 (08:38→17:01)
[2025-03-04] MEDS: Loratadine 10 MG TABLET PO (08:38)
[2025-03-04] MEDS: ARIPiprazole 20 MG TABLET PO (08:38)
--- NOTE | 2025-03-04 09:52 | P.PNPSI_ITS ---
Subjective Subjective Date of Service: 03/04/25 Reason For Visit: other specified schizophrenia spectrum Subjective Notes: Conditional Voluntary Interim History: Patient continues to show gradual improvement has intrusive auditory hallucinations but able to regroup instead of becoming more agitated insistent Mental Status Exam Mental Status Exam Narrative: Appearance: casual clothing, good hygiene, in NAD Behavior: Calm Psychomotor: Unremarkable Speech: mostly clear, mildly pressured TP: Some degree of racing thoughts TC: Focused on discharge and clear improvement Mood: Anxious Affect: labile SI: none expressed HI; none expressed VH/AH: Less distracted positive intermittent hallucinations Delusions: Decrease delusional preoccupation Insight/judgment: impaired x 2. memory/cog: alert, oriented x3 except for situation. Diagnostics Vital Signs (24Hr): Vital Signs - 24 hr 03/03/25 19:26 03/04/25 08:00 Temperature 96.9 F 97.5 F Pulse Rate 71 82 Respiratory Rate 15 17 Blood Pressure 141/63 H 151/61 H Pulse Oximetry 99 98 Oxygen Delivery Method Room Air Room Air BMI result Body Mass Index 21.7 Labs 02/12/25 07:47 03/04/25 07:19 Labs: Laboratory Results - last 48 hr 03/04/25 07:19 Creatinine 0.74 Estim Creat Clear Calc 55.9 Estimated GFR > 60 Imaging Radiology Impressions: ITS Impressions Thyroid Ultrasound 01/22/25 09:21 IMPRESSION: ACR TI RADS 0. Normal thyroid. ACR TI-RADS RECOMMENDATION REFERENCE: Ultrasound-guided fine-needle aspiration, followup ultrasound, no further follow up. * TR1 (0 point) and TR2 (2 points): No FNA or follow up. * TR3 (3 points): FNA if more than or equal to 2.5 cm in maximum dimension, followup ultrasound in 1, 3 and 5 years if 1.5 to 2.4 cm in maximum dimension. * TR4 (4-6 points): FNA if more than or equal to 1.5 cm in maximum dimension, followup ultrasound in 1, 2, 3 and 5 years if 1 to 1.4 cm in maximum dimension. * TR5 (more than or equal to 7 points): FNA if more than or equal to 1 cm in maximum dimension, followup ultrasound every year for 5 years if 0.5 to 0.9 cm in maximum dimension. * TR3, TR4 or TR5 nodules that are below the size threshold for followup receive no follow up. Electronically signed by: Juan Rosneberg MD 01/22/2025 10:02 AM EDT Medications Medications Current Medications Acetaminophen (Acetaminophen 325 Mg Tablet) 650 mg PO Q6H PRN PRN Reason: Headache/Pain, Scale 1-10 Last Admin: 03/02/25 08:57 Dose: 650 mg Al Hydroxide/Mg Hydroxide (Magnesium Hydrox/Alum Hydrox 30 Ml Oral.Susp) 30 ml PO Q6H PRN PRN Reason: Heartburn/Nausea Last Admin: 03/03/25 22:19 Dose: 30 ml Amantadine HCl (Amantadine Hcl 100 Mg Capsule) 100 mg PO BID [facility] Last Admin: 03/04/25 08:38 Dose: 100 mg Aripiprazole (Aripiprazole 20 Mg Tablet) 20 mg PO DAILY [facility] Last Admin: 03/04/25 08:38 Dose: 20 mg Atorvastatin Calcium (Atorvastatin Calcium 80 Mg Tablet) 80 mg PO BEDTIME [facility] Last Admin: 03/03/25 19:29 Dose: 80 mg Benztropine Mesylate (Benztropine Mesylate 0.5 Mg Tablet) 0.5 mg PO BID [facility] Last Admin: 03/04/25 08:38 Dose: 0.5 mg Docusate Sodium (Docusate Sodium 100 Mg Capsule) 100 mg PO BID [facility] Last Admin: 03/04/25 08:38 Dose: 100 mg Lamotrigine (Lamotrigine 100 Mg Tablet) 300 mg PO BEDTIME [facility] Last Admin: 03/03/25 19:30 Dose: 300 mg Levalbuterol HCl (Levalbuterol Hcl 1.25 Mg/3 Ml Vial.Neb) 1.25 mg INHALE Q4H PRN PRN Reason: Wheezing Levothyroxine Sodium (Levothyroxine Sodium 125 Mcg Tablet) 125 mcg PO DAILY@0600 [facility] Last Admin: 03/04/25 05:17 Dose: 125 mcg Lisinopril (Lisinopril 10 Mg Tablet) 10 mg PO DAILY [facility]; Protocol Last Admin: 03/04/25 08:38 Dose: 10 mg Loratadine (Loratadine 10 Mg Tablet) 10 mg PO DAILY [facility] Last Admin: 03/04/25 08:38 Dose: 10 mg Lorazepam (Lorazepam 0.5 Mg Tablet) 0.5 mg PO BID PRN PRN Reason: moderate anxiety Last Admin: 03/02/25 05:07 Dose: 0.5 mg Magnesium Hydroxide (Milk Of Magnesia 30 Ml Oral.Susp) 30 ml PO DAILY PRN PRN Reason: Constipation Metformin HCl (Metformin Hcl 500 Mg Tablet) 500 mg PO BIDWM [facility] Last Admin: 03/04/25 08:38 Dose: 500 mg Nicotine (Nicotine 21 Mg Patch.Td24) 21 mg TRANSDERMA DAILY PRN PRN Reason: smoking cessation Nicotine Polacrilex (Nicotine Polacrilex 2 Mg Gum) 4 mg BUCCAL Q2H PRN PRN Reason: Nicotine Cravings Olanzapine (Olanzapine Odt 10 Mg Tab.Rapdis) 20 mg TRANSLINGU BEDTIME [facility] Last Admin: 03/03/25 19:29 Dose: 20 mg Olanzapine (Olanzapine 2.5 Mg Tablet) 2.5 mg PO Q4H PRN PRN Reason: Psychosis Last Admin: 02/24/25 23:53 Dose: 2.5 mg Olanzapine (Olanzapine 5 Mg Tablet) 5 mg PO DAILY@1230 [facility] Last Admin: 03/03/25 12:29 Dose: 5 mg Vitamin D (Cholecalciferol (Vitamin D3) 10 Mcg Tablet) 20 mcg PO DAILY [facility] Last Admin: 03/04/25 08:38 Dose: 20 mcg Allergies Allergies Allergy/AdvReac Type Severity Reaction Status Date / Time Seasonal Allergies Allergy Nasal Verified 01/21/25 16:35 congestion Assessment & Plan Assessment & Plan (1) Schizophrenia, paranoid type: Status: Acute Code(s): F20.0 - Paranoid schizophrenia (2) Abnormal CT of liver: Status: Acute Code(s): R93.2 - Abnormal findings on diagnostic imaging of liver and biliary tract (3) COPD (chronic obstructive pulmonary disease): Qualifiers: COPD type: chronic bronchitis Chronic bronchitis type: simple Q ualified Code(s): J41.0 - Simple chronic bronchitis Status: Acute Code(s): J44.9 - Chronic obstructive pulmonary disease, unspecified (4) Cognitive disorder: Status: Suspected Code(s): F09 - Unspecified mental disorder due to known physiological condition (5) Graves disease: Status: Acute Code(s): E05.00 - Thyrotoxicosis with diffuse goiter without thyrotoxic crisis or storm Plan The patient likely has air trapping for the COPD. If she gets anxious or if she is dyspneic, she will likely have worsening air trapping making her breathing worse. Currently, she is well. start short acting beta agonist as needed Tobacco cessation Outpt PFTs/CXR Maybe a candidate for the Lung cancer screening program as an outpt 02/09: Continue current plans and regimen. Added Ativan 0.5 mg b.i.d. p.r.n. 02/10 Patient said she wants to go home... Says I feel good and I want to go home.. Today patient got anxious when learning she needed to get an echocardiogram; in her anxiety, she started yelling out saying Cecilia go ahead and tell them all my medical issues... Patient's daughter present who said that this is patient's downstairs neighbor whom she is paranoid about 02/11 Increase olanzapine at 20 mg olanzapine p.r.n. also ordered Abilify increased back to 20 mg check EKG patient perhaps seems to be responding somewhat to olanzapine had been severely agitated floridly hallucinating and agitated. Check abdominal CT scan given question of liver mass liver cancer and abdominal pain 02/12 Patient seems somewhat improved less agitated on olanzapine abdominal CT scan ordered case reviewed with patient's primary care office patient was supposed to have follow-up regarding question of liver mass patient complains of abdominal pain agreeable to abdominal CT scan could be contributing factor to psychiatric presentation. Patient was able to give informed consent 02/13/2025 Continue olanzapine Abilify patient remains delusional but significantly calmer less agitated able to cooperate with medical workup including abdominal/pelvic ultrasound which shows liver lesions. Gastroenterology involved 02/14/2025 Patient seen case reviewed with gastroenterology also with patient's daughter current situation reviewed. Patient had abdominal CT scan when year ago with question of possible carcinoma patient had been complaining of abdominal pain on the inpatient psychiatry unit and then will CT scan ordered. See GI note. Patient on olanzapine and Abilify Lamictal significant less auditory hallucinations and preoccupation remains delusional preoccupied which seems chronic but less agitation 02/15; discussed MRI which she is amenable; patient intermittently expressing delusional thoughts 02/17 appears less paranoid, less psychotic, less accusatory to staff here on the unit. 02/19/25 Inc zyprexa made suicidal tgreats to family agaitated paranoid inc olanzapine mg noon 02/20/2025 Olanzapine increased Lamictal increased will file for commitment 02/22: irritable, angry @ [facility] for not being discharged today. 02/23: irritable, angry. wants discharge. continue current mgmt. 02/24/2025 Continue olanzapine check Lamictal level discuss with family possibilities regarding discharge with supervision 02/24/2025 Patient seem less irritable agitated remains delusional preoccupied increase Lamictal to 300 mg check Lamictal level 02/26/2025 Patient seems better on Lamictal and olanzapine less in the way of delusional concerns less agitated about delusional concern court hearing pending discussed with patient consideration of signing back in as an option 02/27/2025 Patient agreeable to slightly longer length of stay to help stabilize mood and psychosis has signed conditional voluntary 02/28/2025\ Continue olanzapine Lamictal Lamictal increased to 300 mg 03/04/2025 Continue Lamictal olanzapine Abilify continued would taper at some point. Patient remains with auditory hallucinations but much less reactive irritable agitated when addressed no command to harm self or others Gastroenterology following patient: 74-year-old female with history of anxiety and depression, paranoid schizophrenia disorder, unspecified asthma, hyperlipidemia, [id number] type 2 diabetes, and hypertension admitted to adult Psychiatry on 01/22/25 with after making suicidal and homicidal statements GI consulted for FU of abnormal CT scan of the liver Labs revealed normal LFTs ABD CT scan showed an 3.1 cms Indeterminate hepatic lesions in segments 1 and [address] scan was reviewed with Radiology and no prior images were available No obvious cirrhosis on CT scan Liver lesion can be benign (hepatic hemangioma, focal nodular hyperplasia, hepatocellular adenoma) or malignant (hepatocellular carcinoma, cholangiocarcinoma or metastatic disease) Liver lesion is likely benign since no significant increase in size over the past year (See outside CT report below from 01/23/24) RECOMMENDATIONS: 1. Check AFP and CA 19-9 - order placed for am labs 2. Schedule hepatic protocol MR for further characterization of the hepatic lesion (MRI could not be performed today due to prescence of spinal neurostimulator. Pt's daughter will be bringing the remote for the Neurostimulator on Monday and MRI will likely be done on Monday/Monday if the neurostimulator battery pack is MRI compatible) ADDENDUM: 01/23/[address] SCAN AT AN OUTSIDE FACILITY WHICH SHOWED: 1. Nodular contour of the liver, stage otic appearance. Patent portal veins, normal gallbladder, no bile duct dilation. 2. 4.1 x 4 x 2.9 cm liver lesion identified within segment 7 abutting the IVC. This demonstrates hypervascularity and is concerning for underlying liver lesion. Further characterization with multiphase CT or MRI if the neurostimulator battery pack is MRI compatible. 3. No evidence for an acute abdomen. 02/14/2025 Patient seen case reviewed with gastroenterology also with patient's daughter current situation reviewed. Patient had abdominal CT scan when year ago with question of possible carcinoma patient had been complaining of abdominal pain on the inpatient psychiatry unit and then will CT scan ordered. See GI note. Patient on olanzapine and Abilify Lamictal significant less auditory hallucinations and preoccupation remains delusional preoccupied which seems chronic but less agitation 03/01: Continue current regimen and plans 03/02: Continue current regimen and plans 03/03/2025 Continue olanzapine and Lamictal patient gradually improved improving remains with intermittent auditory hallucinations but less toxic less disturbing. Discharge planning. Family where patient needs further liver workup outpatient Reason for continued inpatient stay Substantial Risk for: inability to function and rapid decompensation Time Spent With Patient Time: Total time managing care of this patient today ____ minutes.
[2025-03-04] MEDS: OLANZapine 5 MG TABLET PO (12:10)
[2025-03-04 20:00] VITALS: BP 127/56; PULSE 82; RESP 16; TEMP 36.6; O2SAT 99
[2025-03-04] MEDS: OLANZapine ODT 10 MG TAB.RAPDIS 20 MG TRANSLINGU (20:47)
[2025-03-04] MEDS: Atorvastatin Calcium 80 MG TABLET PO (20:48)
[2025-03-04] MEDS: lamoTRIgine 100 MG TABLET 300 MG PO (20:50)
[2025-03-05] MEDS: Levothyroxine Sodium 125 MCG TABLET PO (06:33)
[2025-03-05] MEDS: Benztropine Mesylate 0.5 MG TABLET PO ×2 (07:55→19:51)
[2025-03-05] MEDS: lisinopriL 10 MG TABLET PO (07:55)
[2025-03-05] MEDS: Loratadine 10 MG TABLET PO (07:55)
[2025-03-05] MEDS: amantadine HCL 100 MG CAPSULE PO ×2 (07:55→19:51)
[2025-03-05] MEDS: Docusate Sodium 100 MG CAPSULE PO ×2 (07:55→19:51)
[2025-03-05] MEDS: ARIPiprazole 20 MG TABLET PO (07:56)
[2025-03-05] MEDS: Cholecalciferol (Vitamin D3) 10 MCG TABLET 20 MCG PO (07:56)
[2025-03-05] MEDS: metFORMIN HCl 500 MG TABLET PO ×2 (07:56→16:24)
[2025-03-05 08:00] VITALS: BP 116/56; PULSE 74; RESP 16; TEMP 36.7; O2SAT 100
--- NOTE | 2025-03-05 10:15 | HO.PSYCHPN ---
Subjective Subjective Reason For Visit: other specified schizophrenia spectrum Diagnostics Vital Signs (24Hr): Vital Signs - 24 hr 03/04/25 20:00 03/05/25 08:00 Temperature 98 F 98.1 F Pulse Rate 82 74 Respiratory Rate 16 16 Blood Pressure 127/56 L 116/56 L Pulse Oximetry 99 100 Oxygen Delivery Method Room Air Room Air BMI result Body Mass Index 21.7 Labs 02/12/25 07:47 03/04/25 07:19 Labs: Laboratory Results - last 48 hr 03/04/25 07:19 Creatinine 0.74 Estim Creat Clear Calc 55.9 Estimated GFR > 60 Imaging Radiology Impressions: ITS Impressions Thyroid Ultrasound 01/22/25 09:21 IMPRESSION: ACR TI RADS 0. Normal thyroid. ACR TI-RADS RECOMMENDATION REFERENCE: Ultrasound-guided fine-needle aspiration, followup ultrasound, no further follow up. * TR1 (0 point) and TR2 (2 points): No FNA or follow up. * TR3 (3 points): FNA if more than or equal to 2.5 cm in maximum dimension, followup ultrasound in 1, 3 and 5 years if 1.5 to 2.4 cm in maximum dimension. * TR4 (4-6 points): FNA if more than or equal to 1.5 cm in maximum dimension, followup ultrasound in 1, 2, 3 and 5 years if 1 to 1.4 cm in maximum dimension. * TR5 (more than or equal to 7 points): FNA if more than or equal to 1 cm in maximum dimension, followup ultrasound every year for 5 years if 0.5 to 0.9 cm in maximum dimension. * TR3, TR4 or TR5 nodules that are below the size threshold for followup receive no follow up. Electronically signed by: Juan Rosenberg MD 01/22/2025 10:02 AM EDT Medications Medications Current Medications Acetaminophen (Acetaminophen 325 Mg Tablet) 650 mg PO Q6H PRN PRN Reason: Headache/Pain, Scale 1-10 Last Admin: 03/02/25 08:57 Dose: 650 mg Al Hydroxide/Mg Hydroxide (Magnesium Hydrox/Alum Hydrox 30 Ml Oral.Susp) 30 ml PO Q6H PRN PRN Reason: Heartburn/Nausea Last Admin: 03/03/25 22:19 Dose: 30 ml Amantadine HCl (Amantadine Hcl 100 Mg Capsule) 100 mg PO BID COUNT INCLUDES THE [facility] Last Admin: 03/05/25 07:55 Dose: 100 mg Aripiprazole (Aripiprazole 20 Mg Tablet) 20 mg PO DAILY COUNT INCLUDES THE [facility] Last Admin: 03/05/25 07:56 Dose: 20 mg Atorvastatin Calcium (Atorvastatin Calcium 80 Mg Tablet) 80 mg PO BEDTIME COUNT INCLUDES THE [facility] Last Admin: 03/04/25 20:48 Dose: 80 mg Benztropine Mesylate (Benztropine Mesylate 0.5 Mg Tablet) 0.5 mg PO BID COUNT INCLUDES [facility] Last Admin: 03/05/25 07:55 Dose: 0.5 mg Docusate Sodium (Docusate Sodium 100 Mg Capsule) 100 mg PO BID COUNT INCLUDES THE [facility] Last Admin: 03/05/25 07:55 Dose: 100 mg Lamotrigine (Lamotrigine 100 Mg Tablet) 300 mg PO BEDTIME COUNT INCLUDES [facility] Last Admin: 03/04/25 20:50 Dose: 300 mg Levalbuterol HCl (Levalbuterol Hcl 1.25 Mg/3 Ml Vial.Neb) 1.25 mg INHALE Q4H PRN PRN Reason: Wheezing Levothyroxine Sodium (Levothyroxine Sodium 125 Mcg Tablet) 125 mcg PO DAILY@0600 COUNT INCLUDES THE [facility] Last Admin: 03/05/25 06:33 Dose: 125 mcg Lisinopril (Lisinopril 10 Mg Tablet) 10 mg PO DAILY COUNT INCLUDES THE [facility]; Protocol Last Admin: 03/05/25 07:55 Dose: 10 mg Loratadine (Loratadine 10 Mg Tablet) 10 mg PO DAILY COUNT INCLUDES THE [facility] Last Admin: 03/05/25 07:55 Dose: 10 mg Lorazepam (Lorazepam 0.5 Mg Tablet) 0.5 mg PO BID PRN PRN Reason: severe anxiety Magnesium Hydroxide (Milk Of Magnesia 30 Ml Oral.Susp) 30 ml PO DAILY PRN PRN Reason: Constipation Metformin HCl (Metformin Hcl 500 Mg Tablet) 500 mg PO BIDWM COUNT INCLUDES THE [facility] Last Admin: 03/05/25 07:56 Dose: 500 mg Nicotine (Nicotine 21 Mg Patch.Td24) 21 mg TRANSDERMA DAILY PRN PRN Reason: smoking cessation Nicotine Polacrilex (Nicotine Polacrilex 2 Mg Gum) 4 mg BUCCAL Q2H PRN PRN Reason: Nicotine Cravings Olanzapine (Olanzapine Odt 10 Mg Tab.Rapdis) 20 mg TRANSLINGU BEDTIME COUNT INCLUDES THE [facility] Last Admin: 03/04/25 20:47 Dose: 20 mg Olanzapine (Olanzapine 2.5 Mg Tablet) 2.5 mg PO Q4H PRN PRN Reason: Psychosis Last Admin: 02/24/25 23:53 Dose: 2.5 mg Olanzapine (Olanzapine 5 Mg Tablet) 5 mg PO DAILY@1230 COUNT INCLUDES THE [facility] Last Admin: 03/04/25 12:10 Dose: 5 mg Vitamin D (Cholecalciferol (Vitamin D3) 10 Mcg Tablet) 20 mcg PO DAILY COUNT INCLUDES THE [facility] Last Admin: 03/05/25 07:56 Dose: 20 mcg Allergies Allergies Allergy/AdvReac Type Severity Reaction Status Date / Time Seasonal Allergies Allergy Nasal Verified 01/21/25 16:35 congestion Assessment & Plan Assessment & Plan (1) Schizophrenia, paranoid type: Status: Acute Code(s): F20.0 - Paranoid schizophrenia (2) Abnormal CT of liver: Status: Acute Code(s): R93.2 - Abnormal findings on diagnostic imaging of liver and biliary tract (3) COPD (chronic obstructive pulmonary disease): Qualifiers: COPD type: chronic bronchitis Chronic bronchitis type: simple Qualified Code(s): J41.0 - Simple chronic bronchitis Status: Acute Code(s): J44.9 - Chronic obstructive pulmonary disease, unspecified (4) Cognitive disorder: Status: Suspected Code(s): F09 - Unspecified mental disorder due to known physiological condition (5) Graves disease: Status: Acute Code(s): E05.00 - Thyrotoxicosis with diffuse goiter without thyrotoxic crisis or storm Plan The patient likely has air trapping for the COPD. If she gets anxious or if she is dyspneic, she will likely have worsening air trapping making her breathing worse. Currently, she is well. start short acting beta agonist as needed Tobacco cessation Outpt PFTs/CXR Maybe a candidate for the Lung cancer screening program as an outpt 02/09: Continue current plans and regimen. Added Ativan 0.5 mg b.i.d. p.r.n. 02/10 Patient said she wants to go home... Says I feel good and I want to go home.. Today patient got anxious when learning she needed to get an echocardiogram; in her anxiety, she started yelling out saying Cecilia go ahead and tell them all my medical issues... Patient's daughter present who said that this is patient's downstairs neighbor whom she is paranoid about 02/11 Increase olanzapine at 20 mg olanzapine p.r.n. also ordered Abilify increased back to 20 mg check EKG patient perhaps seems to be responding somewhat to olanzapine had been severely agitated floridly hallucinating and agitated. Check abdominal CT scan given question of liver mass liver cancer and abdominal pain 02/12 Patient seems somewhat improved less agitated on olanzapine abdominal CT scan ordered case reviewed with patient's primary care office patient was supposed to have follow-up regarding question of liver mass patient complains of abdominal pain agreeable to abdominal CT scan could be contributing factor to psychiatric presentation. Patient was able to give informed consent 02/13/2025 Continue olanzapine Abilify patient remains delusional but significantly calmer less agitated able to cooperate with medical workup including abdominal/pelvic ultrasound which shows liver lesions. Gastroenterology involved 02/14/2025 Patient seen case reviewed with gastroenterology also with patient's daughter current situation reviewed. Patient had abdominal CT scan when year ago with question of possible carcinoma patient had been complaining of abdominal pain on the inpatient psychiatry unit and then will CT scan ordered. See GI note. Patient on olanzapine and Abilify Lamictal significant less auditory hallucinations and preoccupation remains delusional preoccupied which seems chronic but less agitation 02/15; discussed MRI which she is amenable; patient intermittently expressing delusional thoughts 02/17 appears less paranoid, less psychotic, less accusatory to staff here on the unit. 02/19/25 Inc zyprexa made suicidal tgreats to family agaitated paranoid inc olanzapine 5 mg noon 02/20/2025 Olanzapine increased Lamictal increased will file for commitment 02/22: irritable, angry @ [facility] for not being discharged today. 02/23: irritable, angry. wants discharge. continue current mgmt. 02/24/2025 Continue olanzapine check Lamictal level discuss with family possibilities regarding discharge with supervision 02/24/2025 Patient seem less irritable agitated remains delusional preoccupied increase Lamictal to 300 mg check Lamictal level 02/26/2025 Patient seems better on Lamictal and olanzapine less in the way of delusional concerns less agitated about delusional concern court hearing pending discussed with patient consideration of signing back in as an option 02/27/2025 Patient agreeable to slightly longer length of stay to help stabilize mood and psychosis has signed conditional voluntary 02/28/2025\ Continue olanzapine Lamictal Lamictal increased to 300 mg 03/04/2025 Continue Lamictal olanzapine Abilify continued would taper at some point. Patient remains with auditory hallucinations but much less reactive irritable agitated when addressed no command to harm self or others Gastroenterology following patient: 74-year-old female with history of anxiety and depression, paranoid schizophrenia disorder, unspecified asthma, hyperlipidemia, [id number] type 2 diabetes, and hypertension admitted to adult Psychiatry on 01/22/25 with after making suicidal and homicidal statements GI consulted for FU of abnormal CT scan of the liver Labs revealed normal LFTs ABD CT scan showed an 3.1 cms Indeterminate hepatic lesions in segments 1 and [address] scan was reviewed with Radiology and no prior images were available No obvious cirrhosis on CT scan Liver lesion can be benign (hepatic hemangioma, focal nodular hyperplasia, hepatocellular adenoma) or malignant (hepatocellular carcinoma, cholangiocarcinoma or metastatic disease) Liver lesion is likely benign since no significant increase in size over the past year (See outside CT report below from 01/23/24) RECOMMENDATIONS: 1. Check AFP and CA 19-9 - order placed for am labs 2. Schedule hepatic protocol MR for further characterization of the hepatic lesion (MRI could not be performed today due to prescence of spinal neurostimulator. Pt's daughter will be bringing the remote for the Neurostimulator on Monday and MRI will likely be done on Monday/Monday if the neurostimulator battery pack is MRI compatible) ADDENDUM: 01/23/[address] SCAN AT AN OUTSIDE FACILITY WHICH SHOWED: 1. Nodular contour of the liver, stage otic appearance. Patent portal veins, normal gallbladder, no bile duct dilation. 2. 4.1 x 4 x 2.9 cm liver lesion identified within segment 7 abutting the IVC. This demonstrates hypervascularity and is concerning for underlying liver lesion. Further characterization with multiphase CT or MRI if the neurostimulator battery pack is MRI compatible. 3. No evidence for an acute abdomen. 02/14/2025 Patient seen case reviewed with gastroenterology also with patient's daughter current situation reviewed. Patient had abdominal CT scan when year ago with question of possible carcinoma patient had been complaining of abdominal pain on the inpatient psychiatry unit and then will CT scan ordered. See GI note. Patient on olanzapine and Abilify Lamictal significant less auditory hallucinations and preoccupation remains delusional preoccupied which seems chronic but less agitation 03/01: Continue current regimen and plans 03/02: Continue current regimen and plans 03/03/2025 Continue olanzapine and Lamictal patient gradually improved improving remains with intermittent auditory hallucinations but less toxic less disturbing. Discharge planning. Family where patient needs further liver workup outpatient Time Spent With Patient Time: Total time managing care of this patient today ____ minutes.
[2025-03-05] MEDS: OLANZapine 5 MG TABLET PO (12:46)
--- NOTE | 2025-03-05 16:22 | HO.PSYCHPN ---
Subjective Subjective Date of Service: 03/05/25 Reason For Visit: other specified schizophrenia spectrum Subjective Notes: Conditional Voluntary Interim History: Patient remains calm stable future oriented. Looking forward to discharge calm not Tolerating current dosing not combative Medication Compliance: Yes Mental Status Exam Mental Status Exam Narrative: Appearance: casual clothing, good hygiene, in NAD Behavior: Calm Psychomotor: Unremarkable Speech: mostly clear, mildly pressured TP: Some degree of racing thoughts TC: Focused on discharge and clear improvement Mood: calm Affect: stable SI: none expressed HI; none expressed VH/AH: Less distracted positive intermittent hallucinations Delusions: Decrease delusional preoccupation Insight/judgment: impaired x 2. memory/cog: alert, oriented x3 except for situation. Diagnostics Vital Signs (24Hr): Vital Signs - 24 hr 03/04/25 20:00 03/05/25 08:00 Temperature 98 F 98.1 F Pulse Rate 82 74 Respiratory Rate 16 16 Blood Pressure 127/56 L 116/56 L Pulse Oximetry 99 100 Oxygen Delivery Method Room Air Room Air BMI result Body Mass Index 21.7 Labs 02/12/25 07:47 03/04/25 07:19 Labs: Laboratory Results - last 48 hr 03/04/25 07:19 Creatinine 0.74 Estim Creat Clear Calc 55.9 Estimated GFR > 60 Imaging Radiology Impressions: ITS Impressions Thyroid Ultrasound 01/22/25 09:21 IMPRESSION: ACR TI RADS 0. Normal thyroid. ACR TI-RADS RECOMMENDATION REFERENCE: Ultrasound-guided fine-needle aspiration, followup ultrasound, no further follow up. * TR1 (0 point) and TR2 (2 points): No FNA or follow up. * TR3 (3 points): FNA if more than or equal to 2.5 cm in maximum dimension, followup ultrasound in 1, 3 and 5 years if 1.5 to 2.4 cm in maximum dimension. * TR4 (4-6 points): FNA if more than or equal to 1.5 cm in maximum dimension, followup ultrasound in 1, 2, 3 and 5 years if 1 to 1.4 cm in maximum dimension. * TR5 (more than or equal to 7 points): FNA if more than or equal to 1 cm in maximum dimension, followup ultrasound every year for 5 years if 0.5 to 0.9 cm in maximum dimension. * TR3, TR4 or TR5 nodules that are below the size threshold for followup receive no follow up. Electronically signed by: Juan Rosenberg MD 01/22/2025 10:02 AM EDT Medications Medications Current Medications Acetaminophen (Acetaminophen 325 Mg Tablet) 650 mg PO Q6H PRN PRN Reason: Headache/Pain, Scale 1-10 Last Admin: 03/02/25 08:57 Dose: 650 mg Al Hydroxide/Mg Hydroxide (Magnesium Hydrox/Alum Hydrox 30 Ml Oral.Susp) 30 ml PO Q6H PRN PRN Reason: Heartburn/Nausea Last Admin: 03/03/25 22:19 Dose: 30 ml Amantadine HCl (Amantadine Hcl 100 Mg Capsule) 100 mg PO BID [facility] Last Admin: 03/05/25 07:55 Dose: 100 mg Aripiprazole (Aripiprazole 20 Mg Tablet) 20 mg PO DAILY [facility] Last Admin: 03/05/25 07:56 Dose: 20 mg Atorvastatin Calcium (Atorvastatin Calcium 80 Mg Tablet) 80 mg PO BEDTIME [facility] Last Admin: 03/04/25 20:48 Dose: 80 mg Benztropine Mesylate (Benztropine Mesylate 0.5 Mg Tablet) 0.5 mg PO BID [facility] Last Admin: 03/05/25 07:55 Dose: 0.5 mg Docusate Sodium (Docusate Sodium 100 Mg Capsule) 100 mg PO BID [facility] Last Admin: 03/05/25 07:55 Dose: 100 mg Lamotrigine (Lamotrigine 100 Mg Tablet) 300 mg PO BEDTIME [facility] Last Admin: 03/04/25 20:50 Dose: 300 mg Levalbuterol HCl (Levalbuterol Hcl 1.25 Mg/3 Ml Vial.Neb) 1.25 mg INHALE Q4H PRN PRN Reason: Wheezing Levothyroxine Sodium (Levothyroxine Sodium 125 Mcg Tablet) 125 mcg PO DAILY@0600 [facility] Last Admin: 03/05/25 06:33 Dose: 125 mcg Lisinopril (Lisinopril 10 Mg Tablet) 10 mg PO DAILY [facility]; Protocol Last Admin: 03/05/25 07:55 Dose: 10 mg Loratadine (Loratadine 10 Mg Tablet) 10 mg PO DAILY [facility] Last Admin: 03/05/25 07:55 Dose: 10 mg Lorazepam (Lorazepam 0.5 Mg Tablet) 0.5 mg PO BID PRN PRN Reason: severe anxiety Magnesium Hydroxide (Milk Of Magnesia 30 Ml Oral.Susp) 30 ml PO DAILY PRN PRN Reason: Constipation Metformin HCl (Metformin Hcl 500 Mg Tablet) 500 mg PO BIDWM [facility] Last Admin: 03/05/25 07:56 Dose: 500 mg Nicotine (Nicotine 21 Mg Patch.Td24) 21 mg TRANSDERMA DAILY PRN PRN Reason: smoking cessation Nicotine Polacrilex (Nicotine Polacrilex 2 Mg Gum) 4 mg BUCCAL Q2H PRN PRN Reason: Nicotine Cravings Olanzapine (Olanzapine Odt 10 Mg Tab.Rapdis) 20 mg TRANSLINGU BEDTIME [facility] Last Admin: 03/04/25 20:47 Dose: 20 mg Olanzapine (Olanzapine 2.5 Mg Tablet) 2.5 mg PO Q4H PRN PRN Reason: Psychosis Last Admin: 02/24/25 23:53 Dose: 2.5 mg Olanzapine (Olanzapine 5 Mg Tablet) 5 mg PO DAILY@1230 [facility] Last Admin: 03/05/25 12:46 Dose: 5 mg Vitamin D (Cholecalciferol (Vitamin D3) 10 Mcg Tablet) 20 mcg PO DAILY [facility] Last Admin: 03/05/25 07:56 Dose: 20 mcg Allergies Allergies Allergy/AdvReac Type Severity Reaction Status Date / Time Seasonal Allergies Allergy Nasal Verified 01/21/25 16:35 congestion Assessment & Plan Assessment & Plan (1) Schizophrenia, paranoid type: Status: Acute Code(s): F20.0 - Paranoid schizophrenia (2) Abnormal CT of liver: Status: Acute Code(s): R93.2 - Abnormal findings on diagnostic imaging of liver and biliary tract (3) COPD (chronic obstructive pulmonary disease): Qualifiers: COPD type: chronic bronchitis Chronic bronchitis type: simple Qualified Code(s): J41.0 - Simple chronic bronchitis Status: Acute Code(s): J44.9 - Chronic obstructive pulmonary disease, unspecified (4) Cognitive disorder: Status: Suspected Code(s): F09 - Unspecified mental disorder due to known physiological condition (5) Graves disease: Status: Acute Code(s): E05.00 - Thyrotoxicosis with diffuse goiter without thyrotoxic crisis or storm Patient educated on: medication risk/benefits Reason for continued inpatient stay Substantial Risk for: rapid decompensation Time Spent With Patient Time: Total time managing care of this patient today ____ minutes.
[2025-03-05 19:48] VITALS: BP 141/62; PULSE 69; RESP 16; TEMP 36.5; O2SAT 97
[2025-03-05] MEDS: lamoTRIgine 100 MG TABLET 300 MG PO (19:50)
[2025-03-05] MEDS: Atorvastatin Calcium 80 MG TABLET PO (19:51)
[2025-03-05] MEDS: OLANZapine ODT 10 MG TAB.RAPDIS 20 MG TRANSLINGU (19:52)
[2025-03-06] MEDS: Levothyroxine Sodium 125 MCG TABLET PO (06:16)
[2025-03-06 08:00] VITALS: BP 143/63; PULSE 81; RESP 16; TEMP 36.4; O2SAT 97
[2025-03-06] MEDS: lisinopriL 10 MG TABLET PO (08:45)
[2025-03-06] MEDS: ARIPiprazole 20 MG TABLET PO (08:45)
[2025-03-06] MEDS: Cholecalciferol (Vitamin D3) 10 MCG TABLET 20 MCG PO (08:45)
[2025-03-06] MEDS: Loratadine 10 MG TABLET PO (08:46)
[2025-03-06] MEDS: Docusate Sodium 100 MG CAPSULE PO (08:46)
[2025-03-06] MEDS: Benztropine Mesylate 0.5 MG TABLET PO (08:46)
[2025-03-06] MEDS: amantadine HCL 100 MG CAPSULE PO (08:47)
[2025-03-06] MEDS: metFORMIN HCl 500 MG TABLET PO (08:59)
[2025-03-06 10:24] VITALS: BMI 21.9
--- NOTE | 2025-03-06 11:07 | PC.NURSE ---
Believes she is leaving today to go and have her MRI done
[2025-03-06] MEDS: OLANZapine 5 MG TABLET PO (12:17)
[2025-03-06] MEDS: OLANZapine 2.5 MG TABLET PO (13:42)
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
== END 2025-03-06 14:43 | disposition home health service (06) | DRG 885 ==
LOC: HO.PM5 01-22 09:23 → HO.PGERI 01-23 14:04
PROVIDERS: Clinical Nurse Specialist Psychiatric/Mental Health, Adult; Internal Medicine Gastroenterology; Physician Assistant; Admitting Provider Psychiatry & Neurology Psychiatry; PCP Radiology Diagnostic Radiology; Visit Provider Psychiatry & Neurology Psychiatry
DX: F20.0 Paranoid schizophrenia (principal); N39.0 Urinary tract infection, site not specified; F17.210 Nicotine dependence, cigarettes, uncomplicated; Z71.6 Tobacco abuse counseling; J44.9 Chronic obstructive pulmonary disease, unspecified; W19.XXXA Unspecified fall, initial encounter; I10 Essential (primary) hypertension; E11.9 Type 2 diabetes mellitus without complications; E04.1 Nontoxic single thyroid nodule; E78.5 Hyperlipidemia, unspecified; Z96.82 Presence of neurostimulator; Z79.84 Long term (current) use of oral hypoglycemic drugs; Z79.899 Other long term (current) drug therapy
CPT/HCPCS: 36415; 70450; 72125; 74177; 76536; 80053; 80061; 80175; 82105; 82306; 82565; 82607; 82746; 82947; 83036; 84439; 84443; 85025; 85652; 86038; 86301; 86431; 93005; 93306; Q9967

== ENCOUNTER 2025-01-21 15:21 | Outpatient (BNV) | payer MEDICARE, OTHER, SELFPAY | END 2025-01-31 13:06 | PROVIDERS: Admitting Provider Psychiatry & Neurology Psychiatry; PCP Radiology Diagnostic Radiology; Visit Provider Internal Medicine Cardiovascular Disease | DX: I44.0 Atrioventricular block, first degree (principal) | CPT/HCPCS: 93010 ==

== ENCOUNTER 2025-01-21 15:21 | Outpatient (BNV) | payer MEDICARE, OTHER, SELFPAY | END 2025-02-14 08:00 | PROVIDERS: Admitting Provider Psychiatry & Neurology Psychiatry; PCP Radiology Diagnostic Radiology; Visit Provider Internal Medicine | DX: I44.2 Atrioventricular block, complete (principal) | CPT/HCPCS: 93010 ==

== ENCOUNTER 2025-01-21 15:21 | Outpatient (BNV) | payer MEDICARE, OTHER, SELFPAY | END 2025-01-29 01:30 | PROVIDERS: Admitting Provider Psychiatry & Neurology Psychiatry; PCP Radiology Diagnostic Radiology; Visit Provider Radiology Diagnostic Radiology | DX: S09.90XA Unspecified injury of head, initial encounter (principal); W19.XXXA Unspecified fall, initial encounter | CPT/HCPCS: 70450; 72125 ==

== ENCOUNTER → 2025-01-21 15:21 | Outpatient (BNV) | payer MEDICARE, OTHER, SELFPAY | PROVIDERS: Admitting Provider Psychiatry & Neurology Psychiatry; PCP Radiology Diagnostic Radiology; Visit Provider Hospitalist | DX: J41.0 Simple chronic bronchitis (principal); F17.200 Nicotine dependence, unspecified, uncomplicated | CPT/HCPCS: 99223 ==

== ENCOUNTER → 2025-01-21 15:21 | Outpatient (BNV) | payer MEDICARE, OTHER, SELFPAY | PROVIDERS: Admitting Provider Psychiatry & Neurology Psychiatry; PCP Radiology Diagnostic Radiology; Visit Provider Psychiatry & Neurology Psychiatry | DX: F20.0 Paranoid schizophrenia (principal) | CPT/HCPCS: 99232 ==

== ENCOUNTER → 2025-01-21 15:21 | Outpatient (BNV) | payer MEDICARE, OTHER, SELFPAY | PROVIDERS: Admitting Provider Psychiatry & Neurology Psychiatry; PCP Radiology Diagnostic Radiology; Visit Provider Registered Nurse | DX: F20.0 Paranoid schizophrenia (principal) | CPT/HCPCS: 90792; 99231; 99232 ==

== ENCOUNTER → 2025-01-21 15:21 | Outpatient (BNV) | payer MEDICARE, OTHER, SELFPAY | PROVIDERS: Admitting Provider Psychiatry & Neurology Psychiatry; PCP Radiology Diagnostic Radiology; Visit Provider Internal Medicine Gastroenterology | DX: R93.2 Abnormal findings on diagnostic imaging of liver and biliary tract (principal) | CPT/HCPCS: 99222 ==

== ENCOUNTER → 2025-01-21 15:21 | Outpatient (BNV) | payer MEDICARE, OTHER, SELFPAY | PROVIDERS: Admitting Provider Psychiatry & Neurology Psychiatry; PCP Radiology Diagnostic Radiology; Visit Provider Physician Assistant | DX: E04.1 Nontoxic single thyroid nodule (principal); E11.8 Type 2 diabetes mellitus with unspecified complications; I10 Essential (primary) hypertension | CPT/HCPCS: 99222; 99499 ==